=== PATIENT | male | born 1935 | race Two or more races ===

== ENCOUNTER 2019-12-05 13:40 | Inpatient (IN) | payer MEDICARE, OTHER ==
[~2019-12-05] VITALS: Ht 165.1 cm; Wt 77.6 kg
[2019-12-05 22:00] VITALS: BP 126/72
[2019-12-05] MEDS ORDERED: HYDROCODONE BIT/HOMATROPINE 5 ML UDC GT PRN (22:00)
[2019-12-05] MEDS ORDERED: ONDANSETRON HCL 4 MG/5 ML SOLUTION GT PRN (22:00)
[2019-12-05] MEDS ORDERED: METOCLOPRAMIDE HCL 10 MG TABLET PO PRN (22:00)
[2019-12-05] MEDS ORDERED: ACETAMINOPHEN 325 MG TABLET PO PRN (22:00)
--- NOTE | 2019-12-05 22:30 | NUR ---
Patient 84 years old male,admitted from [facility] under the care of Dr. Miguel Mak.Patient responsive to touch,non communicative ,open eyes.Tracheostomy located @ midline on mechanical ventilator with prescribed settings,no respiratory distress noted. GT patent and intact.Condom catheter in placed connected to urinary bag. Patient with history of AFIB,CHF,COPD,BPH, Renal transplant, Hypothyroidism,DM ,Hypertension.Notified of the admission and medications order ,to continue medications from acute hospital. Responsible green party notified of admission Trevon (son)Head to toe assessment completed. Edema on the right arm +3,Left arm +2. Right wrist and Left forearm with open blister,Left buttocks area unstageable wound. Scrotum MASD,Bilateral inner thigh redness. No BP on left arm d/t shunt. MRSA swab done for screening. PM care rendered,call light within reach.All needs attended,will continue to monitor.
--- NOTE | 2019-12-06 00:45 | NUR ---
Vital signs during admission; BP 126/ 70,Temp 99.1 HR 90 ,)2 sats 98%
--- NOTE | 2019-12-06 01:02 | NUR ---
RT NOTE Pt received trach'd and placed on [facility] vent w charted settings. Pt is stable w no signs of respiratory distress. Vent is plugged into the red outlet w alarms set and audible. Bvm is at hob. Addendum: 12/06/19 at 0243 by MIGUEL CAREY RT Amended: Links added.
[2019-12-06] MEDS ORDERED: ALBUTEROL FS 2.5 MG/0.5 ML VIAL.NEB NEB SCH (01:30)
[2019-12-06 02:05] VITALS: BP 130/70
[2019-12-06] MEDS ORDERED: INSULIN ASPART/LISPRO 100 UNIT/ML CARTRIDGE SQ SCH (05:00)
[2019-12-06] MEDS ORDERED: BLOOD SUGAR DIAGNOSTIC 1 EACH STRIP IN SCH ×2 (05:00→10:00)
[2019-12-06] MEDS ORDERED: LEVOTHYROXINE SODIUM 75 MCG TABLET ONE (05:21)
[2019-12-06] MEDS ORDERED: FUROSEMIDE 20 MG TABLET ONE (05:22)
[2019-12-06 07:32] VITALS: BP 119/68
[2019-12-06] MEDS ORDERED: FUROSEMIDE 20 MG TABLET GT ONE (09:00)
[2019-12-06] MEDS ORDERED: ALBUTEROL HALF STRENGTH 1.25 MG/3 ML VIAL.NEB NEB ONE (09:00)
[2019-12-06] MEDS ORDERED: PANTOPRAZOLE 40 MG/PACK PACK GT ONE (09:00)
[2019-12-06] MEDS ORDERED: LEVETIRACETAM SOL (5 ML) 100 MG/ML UDC PO ONE (09:00)
[2019-12-06] MEDS ORDERED: LEVOTHYROXINE SODIUM 50 MCG TABLET GT ONE ×2 (09:00→15:00)
[2019-12-06] MEDS ORDERED: APIXABAN 5 MG TABLET GT ONE (09:00)
--- NOTE | 2019-12-06 09:00 | NUR ---
Family Contact: DELMI called the pt.'s son, Trevon Albrecht [phone] to schedule time to complete intake paperwork for today. However, the call went to voicemail and SW left call back number and details. DELMI will follow up.
--- NOTE | 2019-12-06 09:00 | NUR ---
IDT DATE CHANGE NOTICE: DELMI left the pt.'s Son, Trevon Albrecht [phone] a voicemail explaining the process and purpose of the Interdisciplinary Plan of Care Conference and informing him that the IDT will be held today between 12:30-1:30 pm and left DELMI call back number.
[2019-12-06] MEDS ORDERED: ACET650S26 GT (09:45)
[2019-12-06] MEDS ORDERED: FURO-145 GT (09:45)
[2019-12-06] MEDS ORDERED: ALBU18HF2 IH (09:45)
[2019-12-06] MEDS ORDERED: SIRO1SOL GT (09:45)
[2019-12-06] MEDS ORDERED: TAMS-12 GT (09:45)
[2019-12-06] MEDS ORDERED: INSU100I4 SQ (09:45)
[2019-12-06] MEDS ORDERED: LATA2.5D7 EACHEYE (09:45)
[2019-12-06] MEDS ORDERED: DIGO125T GT (09:45)
[2019-12-06] MEDS ORDERED: LANS30CA56 GT (09:45)
[2019-12-06] MEDS ORDERED: IPRA3AMP23 IH (09:45)
[2019-12-06] MEDS ORDERED: LEVO50TA8 GT (09:45)
[2019-12-06] MEDS ORDERED: BALS60OI TP (09:45)
[2019-12-06] MEDS ORDERED: ONDA4TAB5 GT (09:45)
[2019-12-06] MEDS ORDERED: METO5SOL2 GT (09:45)
[2019-12-06] MEDS ORDERED: LEVE250T2 GT (09:45)
[2019-12-06] MEDS ORDERED: BLOO-668 IN (09:45)
[2019-12-06] MEDS ORDERED: HYDR-4384 GT (09:45)
[2019-12-06] MEDS ORDERED: APIX2.5T GT (09:45)
[2019-12-06] MEDS ORDERED: DEXT50DI8 IV (09:46)
[2019-12-06] MEDS: SIROLIMUS 1 MG GT SCH (09:52)
[2019-12-06] MEDS ORDERED: DEXTROSE 50%-WATER 50 ML DISP.SYRIN IV PRN ×2 (10:00→12:30)
[2019-12-06] MEDS ORDERED: DEXTROSE 50%-WATER 50 ML DISP.SYRIN IVP PRN (10:00)
[2019-12-06] MEDS ORDERED: INSULIN ASPART/LISPRO 100 UNIT/ML CARTRIDGE SQ PRN (10:00)
[2019-12-06] MEDS ORDERED: HYDROGEN PEROXIDE 480 ML BOTTLE TP PRN ×2 (10:00→20:30)
--- NOTE | 2019-12-06 10:00 | NUR ---
Seen by Dr Hood. Asked him if he wanted to order any labs for baseline. He said pt's latest labs from [facility] were done on 12/03/19 so there is no need to order labs at this time.
--- NOTE | 2019-12-06 11:21 | NUR ---
INTAKE PAPERWORK: DELMI explained and went over the Intake paperwork with the patients Son Trevon Albrecht [phone] via phone conference on 12/06/2019 at 11 am consisting of : (Patient Right's Acknowledgement, Documentation of Preferred Intensity of Care, Conditions of Admission, [facility] Agreement, and Voluntary Prior Express Consent form, and An Important Message from Medicare). Trevon Albrecht expressed that the intensity of care provided to the pt. should include Maximum Treatment and No CPR. DELMI provided patient's family with a copy of the Bill of Rights, patient information guide and [facility] resident and family guidelines. Energy Projects Lead educated Trevon Albrecht on Advanced Health Care Directive and Conservatorship and provided informational packets for him. The patients family has no plans of filing for conservatorship at the moment and the pt. cannot complete Advanced Health Care Directive as they are non-communicative. DELMI informed Trevon that the pt.'s admission paperwork, informational packets and Bill of rights will be left in a sealed envelope in patient's chart for Trevon to review and sign this weekend at his earliest convenience. Trevon expressed understanding and was agreeable to plan. SA furnace process supervisor informed.
[2019-12-06] MEDS ORDERED: LEVETIRACETAM SOL (5 ML) 100 MG/ML UDC GT SCH ×3 (11:59→21:00)
[2019-12-06 12:00] VITALS: BP 116/63
[2019-12-06] MEDS ORDERED: METOCLOPRAMIDE HCL 10 MG TABLET GT PRN (12:00)
[2019-12-06] MEDS ORDERED: Z GUARD REMEDY 4 OZ OINT TP PRN ×2 (12:00→13:30)
[2019-12-06] MEDS: INSULIN ASPART/LISPRO 100 UNIT/ML CARTRIDGE SQ PRN ×2 (12:43→21:50)
[2019-12-06] MEDS: BLOOD SUGAR DIAGNOSTIC 1 EACH STRIP IN SCH ×2 (12:43→21:47)
[2019-12-06] MEDS ORDERED: TUBERCULIN,PURIF.PROT.DERIV. 5 TU/0.1 ML VIAL ID SCH (13:00)
[2019-12-06] MEDS: DIGOXIN ELIX UDC 0.25 MG/5 ML UDC GT SCH (13:00)
--- NOTE | 2019-12-06 13:00 | NUR ---
IDT meeting held today. Pt on both Eliquis and SCD for DVT prophylaxis. Dr Alicea ordered to DC SCD. He also ordered Digoxin level.
[2019-12-06] MEDS: ALBUTEROL HALF STRENGTH 1.25 MG/3 ML VIAL.NEB NEB SCH ×2 (13:30→19:30)
--- NOTE | 2019-12-06 13:51 | NUR ---
PT RCVD TRACH'D ON MECHANICAL VENT WITH CHARTED SETTINGS. SX DONE. PT TRACH IS PATENT AND SECURE. VENT ALARMS ARE ON, SET, AND AUDIBLE. VENT PLUGGED INTO RED OUTLET. AMBU BAG AT BEDSIDE. NO SOB NOTED. Addendum: 12/06/19 at 1352 by MARI GARCIA RT Amended: Links added.
--- NOTE | 2019-12-06 13:55 | NUR ---
SW Initial patient Assessment: The pt. is an 84 year old [place]i male in [facility] SA unit with a DX of : Acute Hypoxeic Respiratory Failure, Tracheostomy, Ventilator Dependent ; GTube; AFIB,CHF,COPD,BPH, Renal transplant, Hypothyroidism,DM ,Hypertension per EMR. Upon SS consultation, the pt. presents laying in bed, lethargic and is not easily rousable. The pt. is unable to make eye contact upon SW verbal cues. SW unable to accurately assess for orientation, mood, speech, thought process and content, cognition or insight/judgement as the pt is non-communicative. The pt. is fully dependent on all activities of daily living and requires: ventilator and trach care; g-tube feeding, medication management and caregiving for all activities of daily living as he is fully dependent. The pt. will be discharged to a lower level of care when medically appropriate. The patient's responsible constitution party is, Trevon Albrecht [phone], who is the pt.'s youngest son. Per Trevon, family is planning for pt. to remain in this facility long-term. SW will be available to assist family and patient with psychosocial needs.
--- NOTE | 2019-12-06 14:11 | NUR ---
INTERDISCIPLINARY PLAN OF CARE CONFERENCE took place today. The patients responsible libertarian/ Trevon Albrecht [phone] was not able to attend or participate via phone conference. Charge nurse discussed the patients is stable. Dr. Alicea and Interdisciplinary team discussed the plan of care in detail. Current orders as well as treatments and medications were reviewed. Please see other disciplines IDT notes for further details.
--- NOTE | 2019-12-06 16:12 | NUR ---
Seen by PT and OT today. Received PROM orders for BLE and BUE.
[2019-12-06] MEDS: APIXABAN 5 MG TABLET GT SCH (17:24)
[2019-12-06 19:02] VITALS: BP 117/62
[2019-12-06 20:10] VITALS: BP 104/61
[2019-12-06] MEDS ORDERED: ONDANSETRON 4 MG TAB.RAPDIS GT SCH (21:00)
[2019-12-06] MEDS ORDERED: HYDROGEN PEROXIDE 480 ML BOTTLE TP SCH (21:00)
[2019-12-06] MEDS ORDERED: LEVETIRACETAM SOL (5 ML) 100 MG/ML UDC PO SCH (21:00)
[2019-12-06] MEDS: Z GUARD REMEDY 2 OZ OINT TP SCH (21:47)
[2019-12-06] MEDS: LEVETIRACETAM (250 MG) 250 MG TABLET PO SCH (21:47)
[2019-12-06] MEDS: Z GUARD REMEDY 4 OZ OINT TP SCH ×5 (21:47)
[2019-12-06] MEDS: VITS A AND D/WHITE PET/LANOLIN 5 GM PACKET TP SCH (21:48)
[2019-12-06] MEDS: LATANOPROST EYE DROP 0.005% 2.5 ML BOTTLE EACHEYE SCH (21:48)
[2019-12-06] MEDS: TAMSULOSIN 0.4 MG CAP.SR.24H GT SCH (21:49)
[2019-12-06] MEDS: HYDROGEN PEROXIDE 480 ML BOTTLE TP SCH (22:00)
[2019-12-07 00:15] VITALS: BP 129/59
[2019-12-07] MEDS: ALBUTEROL HALF STRENGTH 1.25 MG/3 ML VIAL.NEB NEB SCH ×4 (00:31→19:36)
[2019-12-07 04:10] VITALS: BP 122/66
[2019-12-07] MEDS: LEVOTHYROXINE SODIUM 50 MCG TABLET GT SCH (05:49)
[2019-12-07] MEDS: FUROSEMIDE 20 MG TABLET GT SCH (05:49)
[2019-12-07] MEDS: PREVACID (NF) 30 MG TAB GT SCH (05:49)
[2019-12-07] MEDS: BLOOD SUGAR DIAGNOSTIC 1 EACH STRIP IN SCH ×3 (05:49→21:48)
[2019-12-07] MEDS: INSULIN ASPART/LISPRO 100 UNIT/ML CARTRIDGE SQ PRN ×3 (05:51→21:48)
[2019-12-07 07:27] VITALS: BP 125/47
[2019-12-07] MEDS ORDERED: ONDANSETRON 4 MG TAB.RAPDIS GT PRN (08:30)
--- NOTE | 2019-12-07 08:52 | NUR ---
WOUND CARE CONSULT: PT SEEN FOR SKIN ASSESSMENT AND NOTED TO HAVE SCARRING TO SACRUM WHICH EXTENDS TO BUTTOCKS, RASH TO PERINEAL, LOWER BUTTOCKS AND INNER THIGH AREAS AND HEALING AREA WITH SCARRING AND BROWNISH DISCOLORATION TO RT WRIST, PRESENT ON ADMISSION. NO DRAINAGE NOTED AT RT WRIST. RECOMMEND SURGICAL CONSULT. DR GONZALES NOTIFIED OF CONSULT REQUEST. RECOMMENDATIONS MADE FOR SKIN PROTECTION OF SACRAL/BUTTOCKS/PERINEAL AREAS AND RASH CARE TO INCLUDE LOTRIMIN CREAM. DISCUSSED WITH NURSING STAFF. PT IS INCONTINENT OF STOOL. CONDOM CATH IN USE. WILL SEE PRN. IN AGREEMENT WITH PLAN OF CARE.
[2019-12-07] MEDS: SIROLIMUS 1 MG GT SCH (09:00)
[2019-12-07] MEDS: APIXABAN 5 MG TABLET GT SCH ×2 (09:00→17:25)
[2019-12-07] MEDS: Z GUARD REMEDY 4 OZ OINT TP SCH ×10 (09:00→21:37)
[2019-12-07] MEDS: LEVETIRACETAM (250 MG) 250 MG TABLET PO SCH (09:00)
[2019-12-07] MEDS: VITS A AND D/WHITE PET/LANOLIN 5 GM PACKET TP SCH ×2 (09:00→21:37)
[2019-12-07] MEDS: Z GUARD REMEDY 2 OZ OINT TP SCH ×2 (09:00→21:37)
[2019-12-07] MEDS: HYDROGEN PEROXIDE 480 ML BOTTLE TP SCH ×2 (09:31→20:38)
--- NOTE | 2019-12-07 09:48 | NUR ---
Reported Digoxin level result 0.[address] Alicea, no new order given. Resident currently on Digoxin 0.125 mg. via GT daily.
--- NOTE | 2019-12-07 11:30 | NUR ---
Resident seen by wound nurse with new treatment order given. She also referrered R wrist/R hand dried blister to JF Huerta. After assessing the area, JF huerta said to leave open to air and if it bleeds to apply Xeroform. Endorsed. Resident's son at bedside, he said that R wrist/R hand blister was due to IV infiltration.
[2019-12-07] MEDS: GLUCERNA 1.2 1,000 ML BOTTLE GT PRN (13:23)
[2019-12-07] MEDS: DIGOXIN ELIX UDC 0.25 MG/5 ML UDC GT SCH (13:25)
[2019-12-07] MEDS ORDERED: GUAIFENESIN/D-METHORPHAN HB 5 ML UDC GT PRN (14:00)
--- NOTE | 2019-12-07 14:00 | NUR ---
Informed Dr. Hood that [facility] pharmacy faxed controlled substance authorization for Hycodan that needed MD's signature. Dr. Hood discontinue Hycodan and changed cough medication order to Graciela DAVIES. Family informed.
[2019-12-07] MEDS ORDERED: SIROLIMUS 1 MG GT SCH (15:00)
--- NOTE | 2019-12-07 19:36 | NUR ---
RT NOTE PATIENT RECEIEVED IN STABLE CONDITION. NO SIGNS OF RESPIRATORY DISTRESS NOTED. PATIENT IS TOLERATING CURRENT ORDERED VENT SETTINGS. TRACH IS PATENT AND SECURE. MECHANICAL VENT IS PLUGED INTO RED OUTLET. ALARMS ARE SET AND AUDIBLE. EMERGENCY EQUIPMENT AT BEDSIDE. WILL CONTINUE TO MONITOR PATIENT. Addendum: 12/07/19 at 2049 by AGUILAR BOURNE RT Amended: Links added.
[2019-12-07 20:12] VITALS: BP 121/58
[2019-12-07] MEDS: KEPPRA 500 MG GT SCH (21:36)
[2019-12-07] MEDS: LATANOPROST EYE DROP 0.005% 2.5 ML BOTTLE EACHEYE SCH (21:37)
[2019-12-07] MEDS: TAMSULOSIN 0.4 MG CAP.SR.24H GT SCH (21:37)
[2019-12-07] MEDS: CLOTRIMAZOLE 1% 15 GM TUBE TP SCH (21:37)
[2019-12-08] MEDS: ALBUTEROL HALF STRENGTH 1.25 MG/3 ML VIAL.NEB NEB SCH ×4 (01:30→19:33)
[2019-12-08 04:30] VITALS: BP 112/69
[2019-12-08 04:37] VITALS: BP 112/69
[2019-12-08] MEDS: GLUCERNA 1.2 1,000 ML BOTTLE GT PRN (05:17)
[2019-12-08] MEDS: BLOOD SUGAR DIAGNOSTIC 1 EACH STRIP IN SCH ×3 (05:17→21:24)
[2019-12-08] MEDS: FUROSEMIDE 20 MG TABLET GT SCH (05:17)
[2019-12-08] MEDS: LEVOTHYROXINE SODIUM 50 MCG TABLET GT SCH (05:17)
[2019-12-08] MEDS: PREVACID (NF) 30 MG TAB GT SCH (05:17)
[2019-12-08] MEDS: INSULIN ASPART/LISPRO 100 UNIT/ML CARTRIDGE SQ PRN ×3 (05:19→21:25)
[2019-12-08 07:47] VITALS: BP 110/58
[2019-12-08] MEDS: HYDROGEN PEROXIDE 480 ML BOTTLE TP SCH ×2 (08:27→21:00)
[2019-12-08] MEDS: Z GUARD REMEDY 2 OZ OINT TP SCH ×2 (08:54→20:59)
[2019-12-08] MEDS: SIROLIMUS 1 MG GT SCH (08:54)
[2019-12-08] MEDS: CLOTRIMAZOLE 1% 15 GM TUBE TP SCH ×2 (08:54→20:59)
[2019-12-08] MEDS: Z GUARD REMEDY 4 OZ OINT TP SCH ×10 (08:54→21:00)
[2019-12-08] MEDS: KEPPRA 500 MG GT SCH ×2 (08:54→20:59)
[2019-12-08] MEDS: APIXABAN 5 MG TABLET GT SCH ×2 (08:55→17:21)
[2019-12-08] MEDS: VITS A AND D/WHITE PET/LANOLIN 5 GM PACKET TP SCH ×2 (08:55→21:00)
--- NOTE | 2019-12-08 09:38 | NUR ---
PT RCVD TRACH'D ON MECHANICAL VENT WITH CHARTED SETTINGS. PT DEONDRE TX WELL. SX DONE. PT TRACH IS PATENT AND SECURE. VENT ALARMS ARE ON, SET, AND AUDIBLE. VENT PLUGGED INTO RED OUTLET. AMBU BAG AT BEDSIDE. NO SOB NOTED. Addendum: 12/08/19 at 0939 by MARI GARCIA RT Amended: Links added.
[2019-12-08] MEDS: DIGOXIN ELIX UDC 0.25 MG/5 ML UDC GT SCH (12:45)
[2019-12-08 20:30] VITALS: BP 117/68
[2019-12-08] MEDS: LATANOPROST EYE DROP 0.005% 2.5 ML BOTTLE EACHEYE SCH (21:00)
[2019-12-08] MEDS: TAMSULOSIN 0.4 MG CAP.SR.24H GT SCH (21:00)
[2019-12-09] MEDS: ALBUTEROL HALF STRENGTH 1.25 MG/3 ML VIAL.NEB NEB SCH ×4 (01:21→19:35)
[2019-12-09] MEDS: BLOOD SUGAR DIAGNOSTIC 1 EACH STRIP IN SCH ×3 (05:40→20:58)
[2019-12-09] MEDS: FUROSEMIDE 20 MG TABLET GT SCH (06:06)
[2019-12-09] MEDS: PREVACID (NF) 30 MG TAB GT SCH (06:06)
[2019-12-09] MEDS: LEVOTHYROXINE SODIUM 50 MCG TABLET GT SCH (06:06)
[2019-12-09] MEDS: INSULIN ASPART/LISPRO 100 UNIT/ML CARTRIDGE SQ PRN ×3 (06:07→21:00)
[2019-12-09 07:45] VITALS: BP 133/60
[2019-12-09] MEDS: HYDROGEN PEROXIDE 480 ML BOTTLE TP SCH ×2 (08:34→21:04)
--- NOTE | 2019-12-09 08:39 | NUR ---
PT RCVD TRACH'D ON MECHANICAL VENT WITH CHARTED SETTINGS. PT DEONDRE TX WELL. SX DONE. PT TRACH IS PATENT AND SECURE. VENT ALARMS ARE ON, SET, AND AUDIBLE. VENT PLUGGED INTO RED OUTLET. AMBU BAG AT BEDSIDE. NO SOB NOTED. Addendum: 12/09/19 at 0840 by MARI GARCIA RT Amended: Links added.
[2019-12-09] MEDS: CLOTRIMAZOLE 1% 15 GM TUBE TP SCH ×2 (09:00→20:58)
[2019-12-09] MEDS: SIROLIMUS 1 MG GT SCH (09:00)
[2019-12-09] MEDS: KEPPRA 500 MG GT SCH ×2 (09:00→20:58)
[2019-12-09] MEDS: Z GUARD REMEDY 2 OZ OINT TP SCH ×2 (09:00→20:58)
[2019-12-09] MEDS: VITS A AND D/WHITE PET/LANOLIN 5 GM PACKET TP SCH ×2 (09:00→20:59)
[2019-12-09] MEDS: Z GUARD REMEDY 4 OZ OINT TP SCH ×10 (09:00→20:59)
[2019-12-09] MEDS: APIXABAN 5 MG TABLET GT SCH ×2 (10:00→17:05)
[2019-12-09] MEDS: DIGOXIN ELIX UDC 0.25 MG/5 ML UDC GT SCH (12:06)
[2019-12-09] MEDS: GLUCERNA 1.2 1,000 ML BOTTLE GT PRN (14:43)
--- NOTE | 2019-12-09 16:20 | NUR ---
RT NOTE PRN TRACH TUBE CHANGE DONE DUE TO MALFUNCTIONING TRACH TUBE CUFF. PT SUCTIONED PRE/POST PROCEDURE. MINIMAL BLEEDING NOTED. PT TRACH IS PATENT AND SECURE. NO SOB NOTED. CHARGE NURSE JIL NOTIFIED AND AWARE.
[2019-12-09 19:40] VITALS: BP 110/76
[2019-12-09] MEDS: TAMSULOSIN 0.4 MG CAP.SR.24H GT SCH (21:06)
[2019-12-09] MEDS: LATANOPROST EYE DROP 0.005% 2.5 ML BOTTLE EACHEYE SCH (21:06)
[2019-12-10] MEDS: ALBUTEROL HALF STRENGTH 1.25 MG/3 ML VIAL.NEB NEB SCH ×4 (00:56→19:30)
[2019-12-10] MEDS: FUROSEMIDE 20 MG TABLET GT SCH (05:06)
[2019-12-10] MEDS: BLOOD SUGAR DIAGNOSTIC 1 EACH STRIP IN SCH ×3 (05:06→21:50)
[2019-12-10] MEDS: LEVOTHYROXINE SODIUM 50 MCG TABLET GT SCH (05:06)
[2019-12-10] MEDS: PREVACID (NF) 30 MG TAB GT SCH (05:06)
[2019-12-10] MEDS: INSULIN ASPART/LISPRO 100 UNIT/ML CARTRIDGE SQ PRN ×3 (05:07→21:52)
[2019-12-10 07:29] VITALS: BP 110/52
--- NOTE | 2019-12-10 08:49 | NUR ---
RT NOTE PT RCVD TRACH'D ON MECHANICAL VENT WITH CHARTED SETTINGS. SX DONE. PT TRACH IS PATENT AND SECURE. VENT ALARMS ARE ON, SET, AND AUDIBLE. VENT PLUGGED INTO RED OUTLET. AMBU BAG AT BEDSIDE. NO SOB NOTED AT THIS TIME. Addendum: 12/10/19 at 0850 by DEVANG BENNETT RT Amended: Links added.
[2019-12-10] MEDS: KEPPRA 500 MG GT SCH ×2 (09:00→20:46)
[2019-12-10] MEDS: SIROLIMUS 1 MG GT SCH (09:00)
[2019-12-10] MEDS: APIXABAN 5 MG TABLET GT SCH ×2 (09:00→16:35)
[2019-12-10] MEDS: VITS A AND D/WHITE PET/LANOLIN 5 GM PACKET TP SCH ×2 (09:00→20:47)
[2019-12-10] MEDS: Z GUARD REMEDY 2 OZ OINT TP SCH ×2 (09:00→20:46)
[2019-12-10] MEDS: Z GUARD REMEDY 4 OZ OINT TP SCH ×10 (09:00→20:47)
[2019-12-10] MEDS: HYDROGEN PEROXIDE 480 ML BOTTLE TP SCH ×2 (09:00→21:00)
[2019-12-10] MEDS: CLOTRIMAZOLE 1% 15 GM TUBE TP SCH ×2 (09:00→20:46)
[2019-12-10] MEDS: GLUCERNA 1.2 1,000 ML BOTTLE GT PRN (12:40)
--- NOTE | 2019-12-10 13:00 | NUR ---
Seen by EMERGENCY ROOM PHYSICIAN ASSISTANT Nadine Taylor. Relayed CXR result to her. No new order.
[2019-12-10] MEDS: DIGOXIN ELIX UDC 0.25 MG/5 ML UDC GT SCH (13:04)
--- NOTE | 2019-12-10 13:26 | NUR ---
The patient's son, Trevon Albrecht [phone] signed the intake paperwork: (Patient Right's Acknowledgement, Documentation of Preferred Intensity of Care, Conditions of Admission, [facility] Agreement, and Voluntary Prior Express Consent form, and An Important Message from Medicare) on 12/07/2019 12:15pm. SW filed the intake paperwork in the patient's chart.
[2019-12-10 19:54] VITALS: BP 120/65
[2019-12-10] MEDS: TAMSULOSIN 0.4 MG CAP.SR.24H GT SCH (21:51)
[2019-12-10] MEDS: LATANOPROST EYE DROP 0.005% 2.5 ML BOTTLE EACHEYE SCH (21:51)
[2019-12-11] MEDS: ALBUTEROL HALF STRENGTH 1.25 MG/3 ML VIAL.NEB NEB SCH ×4 (02:27→19:35)
[2019-12-11] MEDS: BLOOD SUGAR DIAGNOSTIC 1 EACH STRIP IN SCH ×3 (05:54→21:13)
[2019-12-11] MEDS: INSULIN ASPART/LISPRO 100 UNIT/ML CARTRIDGE SQ PRN ×3 (05:55→21:14)
[2019-12-11] MEDS: FUROSEMIDE 20 MG TABLET GT SCH (05:55)
[2019-12-11] MEDS: PREVACID (NF) 30 MG TAB GT SCH (05:55)
[2019-12-11] MEDS: LEVOTHYROXINE SODIUM 50 MCG TABLET GT SCH (05:55)
[2019-12-11 06:22] LABS: BASOPHILS % (AUTO) 0.5 % (0.0-2.0); EOSINOPHILS % (AUTO) 4.5 % (0.0-6.0); HEMATOCRIT 30 % (39-51); HEMOGLOBIN 9.6 g/dL (13.5-17.5); LYMPHOCYTES # (AUTO) 0.7 /CMM (0.8-4.8); LYMPHOCYTES % (AUTO) 14.9 % (20.0-44.0); MEAN CORPUSCULAR HGB CONC 32 g/dl (31.0-36.0); MEAN CORPUSCULAR VOLUME 99 fL (80-96); MONOCYTES # (AUTO) 0.7 /CMM (0.1-1.30); MONOCYTES % (AUTO) 13.5 % (2.0-12.0); NEUTROPHILS # (AUTO) 3.4 /CMM (1.8-8.9); NEUTROPHILS % (AUTO) 66.6 % (43.0-81.0); PLATELET COUNT (AUTO) 188 /CMM (150-450)
[2019-12-11 06:43] LABS: CALCIUM, SERUM 9.3 mg/dL (8.5-10.1); MAGNESIUM 2.1 mg/dL (1.8-2.4); PHOSPHORUS 3.7 mg/dL (2.5-4.9); POTASSIUM 3.7 mmol/L (3.5-5.1)
[2019-12-11 08:00] VITALS: BP 98/57
--- NOTE | 2019-12-11 08:58 | NUR ---
Family Invite to December Family Support Group and 12/21/19 IDT :DELMI called the pt.'s son, Trevon Albrecht [phone] to invite him to the Family Support Group 12/19/2019 11 am and to the next IDT 12/21/2019 12:30PM and ask for the pt.'s social security number that is missing on the patient's facesheet. The call went to voicemail and DELMI left message with above stated information and DELMI's call back number.
[2019-12-11] MEDS: Z GUARD REMEDY 2 OZ OINT TP SCH ×2 (09:00→20:05)
[2019-12-11] MEDS: HYDROGEN PEROXIDE 480 ML BOTTLE TP SCH ×2 (09:00→21:00)
[2019-12-11] MEDS: APIXABAN 5 MG TABLET GT SCH ×2 (09:00→17:55)
[2019-12-11] MEDS: Z GUARD REMEDY 4 OZ OINT TP SCH ×10 (09:00→20:05)
[2019-12-11] MEDS: SIROLIMUS 1 MG GT SCH (09:00)
[2019-12-11] MEDS: VITS A AND D/WHITE PET/LANOLIN 5 GM PACKET TP SCH ×2 (09:00→20:05)
[2019-12-11] MEDS: CLOTRIMAZOLE 1% 15 GM TUBE TP SCH ×2 (09:00→20:05)
[2019-12-11] MEDS: KEPPRA 500 MG GT SCH ×2 (09:00→20:05)
[2019-12-11] MEDS: GLUCERNA 1.2 1,000 ML BOTTLE GT PRN (10:38)
[2019-12-11] MEDS: DIGOXIN ELIX UDC 0.25 MG/5 ML UDC GT SCH (13:15)
--- NOTE | 2019-12-11 15:20 | NUR ---
SW received a visit from the patient's son, Trevon asking about the family support group and IDT. DELMI explained the purpose of the IDT plan of care conference and the Family Support Group and asked if there are any topics he would like me to discuss. Trevon expressed understanding and stated he will not be able to attend the family support group this month but would like to participate in IDT meeting via phone conference. Noted.
--- NOTE | 2019-12-11 15:27 | NUR ---
Pt's son requested to DC condom catheter. He said that when pt was still able to speak, he was refusing it. Pt does not have any open wounds in the sacrococcyx area and urine output not being strictly monitored. Pt's family said the condom catheter was placed in the hospital to monitor the urine output. Informed Dr Hood of family's request. He ordered to DC condom catheter.
[2019-12-11 19:52] VITALS: BP 126/65
[2019-12-11] MEDS: LATANOPROST EYE DROP 0.005% 2.5 ML BOTTLE EACHEYE SCH (21:13)
[2019-12-11] MEDS: TAMSULOSIN 0.4 MG CAP.SR.24H GT SCH (21:13)
[2019-12-12] MEDS: ALBUTEROL HALF STRENGTH 1.25 MG/3 ML VIAL.NEB NEB SCH ×4 (01:16→20:08)
[2019-12-12] MEDS: BLOOD SUGAR DIAGNOSTIC 1 EACH STRIP IN SCH ×3 (05:47→21:25)
[2019-12-12] MEDS: PREVACID (NF) 30 MG TAB GT SCH (05:47)
[2019-12-12] MEDS: FUROSEMIDE 20 MG TABLET GT SCH (05:47)
[2019-12-12] MEDS: LEVOTHYROXINE SODIUM 50 MCG TABLET GT SCH (05:47)
[2019-12-12] MEDS: INSULIN ASPART/LISPRO 100 UNIT/ML CARTRIDGE SQ PRN ×3 (05:48→21:26)
[2019-12-12 07:43] VITALS: BP 110/77
[2019-12-12] MEDS: HYDROGEN PEROXIDE 480 ML BOTTLE TP SCH ×2 (09:00→20:50)
[2019-12-12] MEDS: KEPPRA 500 MG GT SCH ×2 (09:53→21:17)
[2019-12-12] MEDS: APIXABAN 5 MG TABLET GT SCH ×2 (09:53→17:53)
[2019-12-12] MEDS: VITS A AND D/WHITE PET/LANOLIN 5 GM PACKET TP SCH ×2 (09:54→21:22)
[2019-12-12] MEDS: CLOTRIMAZOLE 1% 15 GM TUBE TP SCH ×2 (09:54→21:17)
[2019-12-12] MEDS: SIROLIMUS 1 MG GT SCH (09:54)
[2019-12-12] MEDS: Z GUARD REMEDY 4 OZ OINT TP SCH ×10 (09:54→21:22)
[2019-12-12] MEDS: Z GUARD REMEDY 2 OZ OINT TP SCH ×2 (09:54→21:17)
[2019-12-12] MEDS: DIGOXIN ELIX UDC 0.25 MG/5 ML UDC GT SCH (12:24)
[2019-12-12] MEDS: GLUCERNA 1.2 1,000 ML BOTTLE GT PRN ×2 (12:29→23:45)
[2019-12-12 19:42] VITALS: BP 114/56
[2019-12-12] MEDS: LATANOPROST EYE DROP 0.005% 2.5 ML BOTTLE EACHEYE SCH (21:22)
[2019-12-12] MEDS: TAMSULOSIN 0.4 MG CAP.SR.24H GT SCH (21:22)
--- NOTE | 2019-12-12 21:50 | NUR ---
RT NOTE Pt rec'd trached on the [facility] vent on AC mode. Pt shows no signs of resp distress or sob. Trach is patent and secured. Pt sx'd for thick mod amt of pale yellow secretions. Alarms are set and audible. Vent plugged into red outlet. Ambu bag bedside. Will continue to monitor. Addendum: 12/12/19 at 2153 by RENATE CHAVEZ RT Amended: Links added.
[2019-12-13] MEDS: ALBUTEROL HALF STRENGTH 1.25 MG/3 ML VIAL.NEB NEB SCH ×4 (01:38→19:29)
[2019-12-13] MEDS: PREVACID (NF) 30 MG TAB GT SCH (05:38)
[2019-12-13] MEDS: FUROSEMIDE 20 MG TABLET GT SCH (05:38)
[2019-12-13] MEDS: BLOOD SUGAR DIAGNOSTIC 1 EACH STRIP IN SCH ×3 (05:38→20:49)
[2019-12-13] MEDS: LEVOTHYROXINE SODIUM 50 MCG TABLET GT SCH (05:38)
[2019-12-13] MEDS: INSULIN ASPART/LISPRO 100 UNIT/ML CARTRIDGE SQ PRN ×3 (05:40→22:10)
[2019-12-13 07:21] VITALS: BP 121/63
[2019-12-13] MEDS: KEPPRA 500 MG GT SCH ×2 (08:26→20:48)
[2019-12-13] MEDS: SIROLIMUS 1 MG GT SCH (08:27)
[2019-12-13] MEDS: APIXABAN 5 MG TABLET GT SCH ×2 (08:27→16:35)
[2019-12-13 09:00] VITALS: BP 131/74
[2019-12-13] MEDS: Z GUARD REMEDY 2 OZ OINT TP SCH ×2 (10:00→20:50)
[2019-12-13] MEDS: VITS A AND D/WHITE PET/LANOLIN 5 GM PACKET TP SCH ×2 (10:00→20:50)
[2019-12-13] MEDS: Z GUARD REMEDY 4 OZ OINT TP SCH ×10 (10:00→20:50)
[2019-12-13] MEDS: CLOTRIMAZOLE 1% 15 GM TUBE TP SCH ×2 (10:00→20:50)
--- NOTE | 2019-12-13 10:50 | NUR ---
Informed Dr Hodo that Lansoprazole is not covered by insurance and the covered alternative is Omeprazole. Dr Hood ordered to DC Lansoprazole and give Omeprazole capsule DR 20 mg via GT daily at 0600.
--- NOTE | 2019-12-13 10:55 | NUR ---
RT NOTE: LATE ENTRY- WHILE PATIENT WAS IN SHOWER VENT LOW BATTERY ALARM WENT OFF. PATIENT WAS TAKEN BACK TO ROOM AND VENT WAS CONNECTED TO RED OUTLET IMMEDIATELY PER CRN(JERAMY). @1040-PATIENT WAS ASSESSED IN ROOM WITH NO DISTRESS NOTED. PATIENT'S VENT WAS CHANGED. VENT PLUGGED INTO RED OUTLET. ALARMS SET AND AUDIBLE. NURSE(ADILIA) NOTIFIED.
[2019-12-13] MEDS: HYDROGEN PEROXIDE 480 ML BOTTLE TP SCH ×2 (11:08→21:40)
[2019-12-13 13:00] VITALS: BP 136/67
[2019-12-13] MEDS: DIGOXIN ELIX UDC 0.25 MG/5 ML UDC GT SCH (13:00)
--- NOTE | 2019-12-13 16:30 | NUR ---
RT NOTE: PATIENT RECEIVED WITH AGAPITOLEY #8 TRACH ON MECHANICAL VENT. VENT ALARMS VERIFIED AND AUDIBLE. VENT PLUGGED INTO RED OUTLET. NEW TRACH AND AMBU BAG AT [facility].
[2019-12-13 17:00] VITALS: BP 138/71
[2019-12-13 20:45] VITALS: BP 105/54
[2019-12-13] MEDS: GLUCERNA 1.2 1,000 ML BOTTLE GT PRN (21:13)
[2019-12-13] MEDS: LATANOPROST EYE DROP 0.005% 2.5 ML BOTTLE EACHEYE SCH (21:13)
[2019-12-13] MEDS: TAMSULOSIN 0.4 MG CAP.SR.24H GT SCH (21:13)
[2019-12-14] MEDS: ALBUTEROL HALF STRENGTH 1.25 MG/3 ML VIAL.NEB NEB SCH ×4 (02:12→19:11)
--- NOTE | 2019-12-14 03:10 | NUR ---
RT Pt trach remains on [facility] vent settings. trach secure and patent. no resp distress noted. Addendum: 12/14/19 at 0311 by LUZ GALLEGOS RT Amended: Links added.
[2019-12-14] MEDS: OMEPRAZOLE 20 MG CAPSULE.DR GT SCH (05:38)
[2019-12-14] MEDS: FUROSEMIDE 20 MG TABLET GT SCH (05:38)
[2019-12-14] MEDS: BLOOD SUGAR DIAGNOSTIC 1 EACH STRIP IN SCH ×3 (05:38→21:01)
[2019-12-14] MEDS: LEVOTHYROXINE SODIUM 50 MCG TABLET GT SCH (05:38)
[2019-12-14] MEDS: INSULIN ASPART/LISPRO 100 UNIT/ML CARTRIDGE SQ PRN ×3 (05:39→21:31)
[2019-12-14 07:27] VITALS: BP 127/57
[2019-12-14] MEDS: APIXABAN 5 MG TABLET GT SCH ×2 (08:25→16:01)
[2019-12-14] MEDS: KEPPRA 500 MG GT SCH ×2 (08:25→20:19)
[2019-12-14] MEDS: Z GUARD REMEDY 4 OZ OINT TP SCH ×10 (08:27→20:19)
[2019-12-14] MEDS: VITS A AND D/WHITE PET/LANOLIN 5 GM PACKET TP SCH ×2 (08:28→20:19)
[2019-12-14] MEDS: CLOTRIMAZOLE 1% 15 GM TUBE TP SCH ×2 (08:28→20:19)
[2019-12-14] MEDS: Z GUARD REMEDY 2 OZ OINT TP SCH ×2 (08:28→20:19)
[2019-12-14] MEDS: HYDROGEN PEROXIDE 480 ML BOTTLE TP SCH ×2 (08:29→21:00)
[2019-12-14] MEDS: SIROLIMUS 1 MG GT SCH (08:29)
[2019-12-14] MEDS ORDERED: SITAGLIPTIN PHOSPHATE 50 MG TABLET PO SCH (12:00)
[2019-12-14] MEDS: DIGOXIN ELIX UDC 0.25 MG/5 ML UDC GT SCH (12:24)
--- NOTE | 2019-12-14 14:56 | NUR ---
New medicine Corwin ordered non administer at 1200 today. drug not available. Order faxed by CN to [facility] and made aware of inhouse pharmacy as well. Spoke to Arlin.
[2019-12-14] MEDS: GLUCERNA 1.2 1,000 ML BOTTLE GT PRN (15:55)
[2019-12-14] MEDS: PROSOURCE / PROSTAT (PYXIS) 30 ML UDC GT SCH (16:01)
[2019-12-14 20:58] VITALS: BP 107/51
[2019-12-14] MEDS: LATANOPROST EYE DROP 0.005% 2.5 ML BOTTLE EACHEYE SCH (21:01)
[2019-12-14] MEDS: TAMSULOSIN 0.4 MG CAP.SR.24H GT SCH (21:01)
[2019-12-15] MEDS: ALBUTEROL HALF STRENGTH 1.25 MG/3 ML VIAL.NEB NEB SCH ×4 (00:55→20:28)
--- NOTE | 2019-12-15 04:11 | NUR ---
RT NOTE: RECEIVED TRACH PT ON ORDERED NOTED VENT SETTINGS. NO RESPIRATORY DISTRESS NOTED. TRACH CHECKED SECURE AND PATENT. SXD AND LAVAGED Q ROUND AND NEEDED. TXS GIVEN ORDERED WITH NO ADVERSE REACTIONS NOTED. TRACH CARE DONE. SPARE TRACH AND AMBU BAG @ BEDSIDE. VENT PLUGGED INTO RED OUTLET.
[2019-12-15] MEDS: OMEPRAZOLE 20 MG CAPSULE.DR GT SCH (05:15)
[2019-12-15] MEDS: BLOOD SUGAR DIAGNOSTIC 1 EACH STRIP IN SCH ×3 (05:15→21:01)
[2019-12-15] MEDS: FUROSEMIDE 20 MG TABLET GT SCH (05:15)
[2019-12-15] MEDS: GLUCERNA 1.2 1,000 ML BOTTLE GT PRN ×2 (05:15→12:54)
[2019-12-15] MEDS: LEVOTHYROXINE SODIUM 50 MCG TABLET GT SCH (05:15)
[2019-12-15] MEDS: INSULIN ASPART/LISPRO 100 UNIT/ML CARTRIDGE SQ PRN ×3 (05:16→21:05)
[2019-12-15] MEDS: PROSOURCE / PROSTAT (PYXIS) 30 ML UDC GT SCH ×3 (08:00→16:44)
[2019-12-15] MEDS: HYDROGEN PEROXIDE 480 ML BOTTLE TP SCH ×2 (09:00→20:28)
[2019-12-15] MEDS: CLOTRIMAZOLE 1% 15 GM TUBE TP SCH ×2 (09:00→20:22)
[2019-12-15] MEDS: Z GUARD REMEDY 2 OZ OINT TP SCH ×2 (09:00→20:22)
[2019-12-15] MEDS: VITS A AND D/WHITE PET/LANOLIN 5 GM PACKET TP SCH ×2 (09:00→20:23)
[2019-12-15] MEDS: Z GUARD REMEDY 4 OZ OINT TP SCH ×10 (09:00→20:23)
[2019-12-15] MEDS: APIXABAN 5 MG TABLET GT SCH ×2 (09:49→16:43)
[2019-12-15] MEDS: KEPPRA 500 MG GT SCH ×2 (09:49→20:22)
[2019-12-15] MEDS: SITAGLIPTIN PHOSPHATE 50 MG TABLET GT SCH (09:50)
[2019-12-15] MEDS: SIROLIMUS 1 MG GT SCH (09:56)
[2019-12-15] MEDS: DIGOXIN ELIX UDC 0.25 MG/5 ML UDC GT SCH (12:57)
[2019-12-15 17:09] VITALS: BP 125/60
[2019-12-15 20:01] VITALS: BP 137/72
[2019-12-15] MEDS: LATANOPROST EYE DROP 0.005% 2.5 ML BOTTLE EACHEYE SCH (21:02)
[2019-12-15] MEDS: TAMSULOSIN 0.4 MG CAP.SR.24H GT SCH (21:02)
[2019-12-16] MEDS: ALBUTEROL HALF STRENGTH 1.25 MG/3 ML VIAL.NEB NEB SCH ×4 (00:50→20:04)
--- NOTE | 2019-12-16 04:18 | NUR ---
PATIENT RECEIVED ON TRACH TO VENT WITH SETTINGS OF AC 16, 500 VT, 30%, +5. SUCTIONED FOR MINIMAL, THICK, YELLOW SECRETIONS. GIVEN IN-LINE TREATMENTS WITH NO ADVERSE REACTIONS. AMBU BAG AT BEDSIDE. VENT AND PULSE OXIMETER ALARMS AUDIBLE AND VISIBLE. VENT PLUGGED INTO RED OUTLET. Addendum: 12/16/19 at 0420 by JAY OVALLES RT Amended: Links added.
[2019-12-16] MEDS: BLOOD SUGAR DIAGNOSTIC 1 EACH STRIP IN SCH ×3 (05:36→21:17)
[2019-12-16] MEDS: LEVOTHYROXINE SODIUM 50 MCG TABLET GT SCH (05:36)
[2019-12-16] MEDS: FUROSEMIDE 20 MG TABLET GT SCH (05:36)
[2019-12-16] MEDS: GLUCERNA 1.2 1,000 ML BOTTLE GT PRN (05:36)
[2019-12-16] MEDS: OMEPRAZOLE 20 MG CAPSULE.DR GT SCH (05:36)
[2019-12-16] MEDS: INSULIN ASPART/LISPRO 100 UNIT/ML CARTRIDGE SQ PRN ×3 (05:37→21:18)
[2019-12-16 07:34] VITALS: BP 99/55
[2019-12-16] MEDS: PROSOURCE / PROSTAT (PYXIS) 30 ML UDC GT SCH ×3 (08:00→17:48)
[2019-12-16] MEDS: VITS A AND D/WHITE PET/LANOLIN 5 GM PACKET TP SCH ×2 (09:00→20:04)
[2019-12-16] MEDS: HYDROGEN PEROXIDE 480 ML BOTTLE TP SCH ×2 (09:00→20:03)
[2019-12-16] MEDS: Z GUARD REMEDY 2 OZ OINT TP SCH ×2 (09:00→20:03)
[2019-12-16] MEDS: CLOTRIMAZOLE 1% 15 GM TUBE TP SCH ×2 (09:00→20:03)
[2019-12-16] MEDS: Z GUARD REMEDY 4 OZ OINT TP SCH ×10 (09:00→20:04)
[2019-12-16] MEDS: APIXABAN 5 MG TABLET GT SCH ×2 (09:47→17:48)
[2019-12-16] MEDS: KEPPRA 500 MG GT SCH ×2 (09:47→20:03)
[2019-12-16] MEDS: SIROLIMUS 1 MG GT SCH (09:48)
[2019-12-16] MEDS: SITAGLIPTIN PHOSPHATE 50 MG TABLET GT SCH (09:48)
[2019-12-16] MEDS: DIGOXIN ELIX UDC 0.25 MG/5 ML UDC GT SCH (12:56)
[2019-12-16 20:43] VITALS: BP 106/77
[2019-12-16] MEDS: LATANOPROST EYE DROP 0.005% 2.5 ML BOTTLE EACHEYE SCH (21:18)
[2019-12-16] MEDS: TAMSULOSIN 0.4 MG CAP.SR.24H GT SCH (21:19)
[2019-12-17] MEDS: ALBUTEROL HALF STRENGTH 1.25 MG/3 ML VIAL.NEB NEB SCH ×4 (01:58→19:50)
--- NOTE | 2019-12-17 03:02 | NUR ---
RT Pt trach remains on [facility] vent. no resp distress noted. trach secure and patent. Addendum: 12/17/19 at 0305 by LUZ GALLEGOS RT Amended: Links added.
[2019-12-17] MEDS: BLOOD SUGAR DIAGNOSTIC 1 EACH STRIP IN SCH ×3 (05:13→20:02)
[2019-12-17] MEDS: INSULIN ASPART/LISPRO 100 UNIT/ML CARTRIDGE SQ PRN ×3 (05:15→21:09)
[2019-12-17] MEDS: OMEPRAZOLE 20 MG CAPSULE.DR GT SCH (05:16)
[2019-12-17] MEDS: LEVOTHYROXINE SODIUM 50 MCG TABLET GT SCH (05:16)
[2019-12-17] MEDS: FUROSEMIDE 20 MG TABLET GT SCH (05:16)
[2019-12-17] MEDS: GLUCERNA 1.2 1,000 ML BOTTLE GT PRN (05:19)
[2019-12-17] MEDS: PROSOURCE / PROSTAT (PYXIS) 30 ML UDC GT SCH ×3 (08:00→17:00)
--- NOTE | 2019-12-17 08:41 | NUR ---
RT NOTE PT RCVD TRACH'D ON MECHANICAL VENT WITH CHARTED SETTINGS. SX DONE. PT TRACH IS PATENT AND SECURE. VENT ALARMS ARE ON, SET, AND AUDIBLE. VENT PLUGGED INTO RED OUTLET. AMBU BAG AT BEDSIDE. NO SOB NOTED AT THIS TIME. Addendum: 12/17/19 at 0841 by DEVANG BENNETT RT Amended: Links added.
[2019-12-17] MEDS: Z GUARD REMEDY 2 OZ OINT TP SCH ×2 (09:00→20:02)
[2019-12-17] MEDS: HYDROGEN PEROXIDE 480 ML BOTTLE TP SCH ×2 (09:00→21:01)
[2019-12-17] MEDS: CLOTRIMAZOLE 1% 15 GM TUBE TP SCH ×2 (09:00→20:02)
[2019-12-17] MEDS: VITS A AND D/WHITE PET/LANOLIN 5 GM PACKET TP SCH ×2 (09:00→20:02)
[2019-12-17] MEDS: SIROLIMUS 1 MG GT SCH (09:00)
[2019-12-17] MEDS: SITAGLIPTIN PHOSPHATE 50 MG TABLET GT SCH (09:00)
[2019-12-17] MEDS: KEPPRA 500 MG GT SCH ×2 (09:00→20:01)
[2019-12-17] MEDS: Z GUARD REMEDY 4 OZ OINT TP SCH ×10 (09:00→20:02)
[2019-12-17] MEDS: APIXABAN 5 MG TABLET GT SCH ×2 (09:00→17:00)
[2019-12-17 11:36] VITALS: BP 130/91
[2019-12-17] MEDS: DIGOXIN ELIX UDC 0.25 MG/5 ML UDC GT SCH (13:00)
--- NOTE | 2019-12-17 16:22 | NUR ---
DELMI faxed the patient's facesheet to DR. Miramontes's office tel: [phone] fax: [phone] to set up dental exam and cleaning for the patient. Per Mystery, the pt. can be seen 12/19/2019. Noted.
--- NOTE | 2019-12-17 20:17 | NUR ---
RN NOTES Seen and examined by Nadine Taylor NP, with NNO.
[2019-12-17] MEDS: ONDANSETRON 4 MG TAB.RAPDIS GT PRN (20:20)
[2019-12-17 20:56] VITALS: BP 112/72
[2019-12-17] MEDS: TAMSULOSIN 0.4 MG CAP.SR.24H GT SCH (21:48)
[2019-12-17] MEDS: LATANOPROST EYE DROP 0.005% 2.5 ML BOTTLE EACHEYE SCH (21:48)
[2019-12-18] MEDS: ALBUTEROL HALF STRENGTH 1.25 MG/3 ML VIAL.NEB NEB SCH ×4 (02:03→19:37)
--- NOTE | 2019-12-18 02:50 | NUR ---
RT Pt trach on [facility] vent settings. no resp distress noted. Addendum: 12/18/19 at 0251 by LUZ GALLEGOS RT Amended: Links added.
[2019-12-18] MEDS: GLUCERNA 1.2 1,000 ML BOTTLE GT PRN (03:33)
[2019-12-18] MEDS: BLOOD SUGAR DIAGNOSTIC 1 EACH STRIP IN SCH ×3 (05:11→20:17)
[2019-12-18] MEDS: FUROSEMIDE 20 MG TABLET GT SCH (05:12)
[2019-12-18] MEDS: LEVOTHYROXINE SODIUM 50 MCG TABLET GT SCH (05:12)
[2019-12-18] MEDS: OMEPRAZOLE 20 MG CAPSULE.DR GT SCH (05:12)
[2019-12-18] MEDS: INSULIN ASPART/LISPRO 100 UNIT/ML CARTRIDGE SQ PRN ×3 (05:14→20:18)
[2019-12-18] MEDS: HYDROGEN PEROXIDE 480 ML BOTTLE TP SCH ×2 (08:22→20:07)
--- NOTE | 2019-12-18 08:53 | NUR ---
PT RCVD TRACH'D ON MECHANICAL VENT WITH CHARTED SETTINGS. PT DEONDRE TX WELL. SX DONE. PT TRACH IS PATENT AND SECURE. VENT ALARMS ARE ON, SET, AND AUDIBLE. VENT PLUGGED INTO RED OUTLET. AMBU BAG AT BEDSIDE. NO SOB NOTED. Addendum: 12/18/19 at 0854 by MARI GARCIA RT Amended: Links added.
[2019-12-18] MEDS: Z GUARD REMEDY 4 OZ OINT TP SCH ×10 (08:55→20:20)
[2019-12-18] MEDS: SIROLIMUS 1 MG GT SCH (08:55)
[2019-12-18] MEDS: PROSOURCE / PROSTAT (PYXIS) 30 ML UDC GT SCH ×3 (08:55→16:57)
[2019-12-18] MEDS: CLOTRIMAZOLE 1% 15 GM TUBE TP SCH ×2 (08:55→20:19)
[2019-12-18] MEDS: KEPPRA 500 MG GT SCH ×2 (08:55→20:13)
[2019-12-18] MEDS: SITAGLIPTIN PHOSPHATE 50 MG TABLET GT SCH (08:55)
[2019-12-18] MEDS: VITS A AND D/WHITE PET/LANOLIN 5 GM PACKET TP SCH ×2 (08:55→20:20)
[2019-12-18] MEDS: APIXABAN 5 MG TABLET GT SCH ×2 (08:55→16:56)
[2019-12-18] MEDS: Z GUARD REMEDY 2 OZ OINT TP SCH ×2 (08:55→20:20)
[2019-12-18] MEDS: ACETAMINOPHEN 650 MG/20 ML UDC- SA PATIENTS-PAIN ONLY GT PRN (10:47)
[2019-12-18] MEDS: DIGOXIN ELIX UDC 0.25 MG/5 ML UDC GT SCH (13:00)
[2019-12-18 13:06] VITALS: BP 107/52
[2019-12-18] MEDS: TAMSULOSIN 0.4 MG CAP.SR.24H GT SCH (21:18)
[2019-12-18] MEDS: LATANOPROST EYE DROP 0.005% 2.5 ML BOTTLE EACHEYE SCH (21:18)
[2019-12-18 21:36] VITALS: BP 126/90
[2019-12-19] MEDS: ALBUTEROL HALF STRENGTH 1.25 MG/3 ML VIAL.NEB NEB SCH ×4 (01:16→19:23)
[2019-12-19] MEDS: BLOOD SUGAR DIAGNOSTIC 1 EACH STRIP IN SCH ×3 (05:02→21:54)
[2019-12-19] MEDS: INSULIN ASPART/LISPRO 100 UNIT/ML CARTRIDGE SQ PRN ×3 (05:04→21:55)
[2019-12-19] MEDS: FUROSEMIDE 20 MG TABLET GT SCH (05:05)
[2019-12-19] MEDS: OMEPRAZOLE 20 MG CAPSULE.DR GT SCH (05:05)
[2019-12-19] MEDS: LEVOTHYROXINE SODIUM 50 MCG TABLET GT SCH (05:05)
[2019-12-19] MEDS: PROSOURCE / PROSTAT (PYXIS) 30 ML UDC GT SCH ×3 (08:00→16:28)
[2019-12-19 08:01] VITALS: BP 126/64
[2019-12-19] MEDS: HYDROGEN PEROXIDE 480 ML BOTTLE TP SCH ×2 (08:26→20:06)
--- NOTE | 2019-12-19 08:31 | NUR ---
PT RCVD TRACH'D ON MECHANICAL VENT WITH CHARTED SETTINGS. PT DEONDRE TX WELL. SX DONE. PT TRACH IS PATENT AND SECURE. VENT ALARMS ARE ON, SET, AND AUDIBLE. VENT PLUGGED INTO RED OUTLET. AMBU BAG AT BEDSIDE. NO SOB NOTED. Addendum: 12/19/19 at 0831 by MARI GARCIA RT Amended: Links added.
[2019-12-19] MEDS: CLOTRIMAZOLE 1% 15 GM TUBE TP SCH ×2 (09:00→21:21)
[2019-12-19] MEDS: APIXABAN 5 MG TABLET GT SCH ×2 (09:50→16:28)
[2019-12-19] MEDS: SITAGLIPTIN PHOSPHATE 50 MG TABLET GT SCH (09:51)
[2019-12-19] MEDS: Z GUARD REMEDY 4 OZ OINT TP SCH ×10 (09:51→21:22)
[2019-12-19] MEDS: KEPPRA 500 MG GT SCH ×2 (09:51→21:21)
[2019-12-19] MEDS: Z GUARD REMEDY 2 OZ OINT TP SCH ×2 (09:51→21:21)
[2019-12-19] MEDS: SIROLIMUS 1 MG GT SCH (09:51)
[2019-12-19] MEDS: VITS A AND D/WHITE PET/LANOLIN 5 GM PACKET TP SCH ×2 (09:52→21:22)
--- NOTE | 2019-12-19 12:08 | NUR ---
Family Support Group: The patients family did not attend the family support group today.
[2019-12-19] MEDS: DIGOXIN ELIX UDC 0.25 MG/5 ML UDC GT SCH (13:14)
[2019-12-19] MEDS: GLUCERNA 1.2 1,000 ML BOTTLE GT PRN (18:17)
[2019-12-19 19:39] VITALS: BP 124/60
[2019-12-19] MEDS: LATANOPROST EYE DROP 0.005% 2.5 ML BOTTLE EACHEYE SCH (21:22)
[2019-12-19] MEDS: TAMSULOSIN 0.4 MG CAP.SR.24H GT SCH (21:22)
[2019-12-20] MEDS: ALBUTEROL HALF STRENGTH 1.25 MG/3 ML VIAL.NEB NEB SCH ×4 (00:38→19:49)
[2019-12-20] MEDS: FUROSEMIDE 20 MG TABLET GT SCH (05:30)
[2019-12-20] MEDS: OMEPRAZOLE 20 MG CAPSULE.DR GT SCH (05:30)
[2019-12-20] MEDS: LEVOTHYROXINE SODIUM 50 MCG TABLET GT SCH (05:30)
[2019-12-20] MEDS: BLOOD SUGAR DIAGNOSTIC 1 EACH STRIP IN SCH ×3 (05:54→21:05)
[2019-12-20] MEDS: INSULIN ASPART/LISPRO 100 UNIT/ML CARTRIDGE SQ PRN ×3 (05:56→21:06)
[2019-12-20 07:28] VITALS: BP 136/73
[2019-12-20] MEDS: PROSOURCE / PROSTAT (PYXIS) 30 ML UDC GT SCH ×3 (08:00→17:00)
[2019-12-20] MEDS: HYDROGEN PEROXIDE 480 ML BOTTLE TP SCH ×2 (09:00→20:40)
[2019-12-20] MEDS: APIXABAN 5 MG TABLET GT SCH ×2 (09:35→17:00)
[2019-12-20] MEDS: SIROLIMUS 1 MG GT SCH (09:36)
[2019-12-20] MEDS: CLOTRIMAZOLE 1% 15 GM TUBE TP SCH ×2 (09:36→20:35)
[2019-12-20] MEDS: KEPPRA 500 MG GT SCH ×2 (09:36→20:35)
[2019-12-20] MEDS: Z GUARD REMEDY 2 OZ OINT TP SCH (09:36)
[2019-12-20] MEDS: SITAGLIPTIN PHOSPHATE 50 MG TABLET GT SCH (09:36)
[2019-12-20] MEDS: Z GUARD REMEDY 4 OZ OINT TP SCH ×9 (09:36→20:35)
[2019-12-20] MEDS: VITS A AND D/WHITE PET/LANOLIN 5 GM PACKET TP SCH ×2 (09:38→20:35)
--- NOTE | 2019-12-20 12:18 | NUR ---
Seen by LENKA Taylor. Showed her pt's swollen feet (edema). LENKA Taylor ordered to increase Lasix from 20 to 40 mg GT daily until 12/23/19, then resume Lasix 20 mg GT daily on 12/24/19. She also ordered to do BMP on 12/24/19. Informed Trevon.
[2019-12-20] MEDS: DIGOXIN ELIX UDC 0.25 MG/5 ML UDC GT SCH (12:27)
[2019-12-20] MEDS: GLUCERNA 1.2 1,000 ML BOTTLE GT PRN (12:28)
[2019-12-20] MEDS: POTASSIUM CHLORIDE 20 MEQ POWDER PACKET GT SCH (13:36)
[2019-12-20] MEDS ORDERED: FUROSEMIDE 20 MG TABLET GT ONE (14:00)
[2019-12-20 20:34] VITALS: BP 114/62
[2019-12-20] MEDS: LATANOPROST EYE DROP 0.005% 2.5 ML BOTTLE EACHEYE SCH (21:04)
[2019-12-20] MEDS: TAMSULOSIN 0.4 MG CAP.SR.24H GT SCH (21:05)
[2019-12-21] MEDS: ALBUTEROL HALF STRENGTH 1.25 MG/3 ML VIAL.NEB NEB SCH ×4 (01:48→19:31)
[2019-12-21] MEDS: BLOOD SUGAR DIAGNOSTIC 1 EACH STRIP IN SCH ×3 (05:33→21:06)
[2019-12-21] MEDS: OMEPRAZOLE 20 MG CAPSULE.DR GT SCH (05:33)
[2019-12-21] MEDS: LEVOTHYROXINE SODIUM 50 MCG TABLET GT SCH (05:33)
[2019-12-21] MEDS: INSULIN ASPART/LISPRO 100 UNIT/ML CARTRIDGE SQ PRN ×3 (05:35→21:08)
[2019-12-21 07:34] VITALS: BP 127/71
[2019-12-21] MEDS: HYDROGEN PEROXIDE 480 ML BOTTLE TP SCH ×2 (07:34→21:15)
[2019-12-21] MEDS: APIXABAN 5 MG TABLET GT SCH ×2 (08:17→17:54)
[2019-12-21] MEDS: KEPPRA 500 MG GT SCH ×2 (08:17→21:06)
[2019-12-21] MEDS: PROSOURCE / PROSTAT (PYXIS) 30 ML UDC GT SCH ×3 (08:17→17:54)
[2019-12-21] MEDS: SIROLIMUS 1 MG GT SCH (08:18)
[2019-12-21] MEDS: VITS A AND D/WHITE PET/LANOLIN 5 GM PACKET TP SCH ×2 (08:18→21:07)
[2019-12-21] MEDS: Z GUARD REMEDY 4 OZ OINT TP SCH ×8 (08:18→21:07)
[2019-12-21] MEDS: SITAGLIPTIN PHOSPHATE 50 MG TABLET GT SCH (08:18)
[2019-12-21] MEDS: POTASSIUM CHLORIDE 20 MEQ POWDER PACKET GT SCH (08:18)
[2019-12-21] MEDS: FUROSEMIDE 40 MG TABLET GT SCH (08:18)
[2019-12-21] MEDS: CLOTRIMAZOLE 1% 15 GM TUBE TP SCH (08:18)
[2019-12-21] MEDS: DIGOXIN ELIX UDC 0.25 MG/5 ML UDC GT SCH (12:32)
[2019-12-21] MEDS: GLUCERNA 1.2 1,000 ML BOTTLE GT PRN (12:35)
--- NOTE | 2019-12-21 16:11 | NUR ---
INTERDISCIPLINARY PLAN OF CARE CONFERENCE took place today. The patients son, Trevon Albrecht [phone] was in attendance. Charge nurse discussed the patients is stable; Lasix changed to 40 mg daily until 12/23/19 then resume Lasix 20 mg GT daily on 12/24/2019; BMP on 12/24/2019; New order for UA. Dr. Alicea and Interdisciplinary team discussed the plan of care in detail. Current orders as well as treatments and medications were reviewed. The IDT addressed all of Penny questions. Please see other disciplines IDT notes for further details.
--- NOTE | 2019-12-21 16:18 | NUR ---
The patients son, Trevon [phone] stated that the patient is able to express if he has pain. However, the pt. is rarely awake upon SWs visits and has not made eye contact or communicated any needs. SW accompanied Trevon to visit the patient. Trevon greeted the patient and the patient opened his eyes. Trevon introduced the SW and the patient made appropriate eye contact. Trevon asked the patient if he is experiencing pain. The patient nodded yes. Trevon pointed and asked if patient is experiencing pain in different body parts. The patient nodded yes to having pain in his left hand.
[2019-12-21 20:00] VITALS: BP 113/52
[2019-12-21] MEDS: LATANOPROST EYE DROP 0.005% 2.5 ML BOTTLE EACHEYE SCH (21:07)
[2019-12-21] MEDS: TAMSULOSIN 0.4 MG CAP.SR.24H GT SCH (21:07)
[2019-12-21] MEDS: SIMETHICONE 80 MG TAB.CHEW GT SCH (23:39)
[2019-12-22] MEDS: ALBUTEROL HALF STRENGTH 1.25 MG/3 ML VIAL.NEB NEB SCH ×4 (00:52→19:26)
[2019-12-22] MEDS: BLOOD SUGAR DIAGNOSTIC 1 EACH STRIP IN SCH ×3 (05:14→20:18)
[2019-12-22] MEDS: LEVOTHYROXINE SODIUM 50 MCG TABLET GT SCH (05:14)
[2019-12-22] MEDS: SIMETHICONE 80 MG TAB.CHEW GT SCH ×4 (05:14→23:05)
[2019-12-22] MEDS: OMEPRAZOLE 20 MG CAPSULE.DR GT SCH (05:14)
[2019-12-22] MEDS: INSULIN ASPART/LISPRO 100 UNIT/ML CARTRIDGE SQ PRN ×3 (05:15→21:05)
[2019-12-22 06:09] LABS: APPEARANCE,URINE CLEAR (CLEAR); BILIRUBIN,URINE NEGATIVE (NEGATIVE); BLOOD, URINE NEGATIVE Ery/uL (NEGATIVE); COLOR,URINE YELLOW (YELLOW); KETONES,URINE NEGATIVE (NEGATIVE); LEUKOCYTE ESTERASE ,URINE NEGATIVE (NEGATIVE); NITRITE, URINE NEGATIVE (NEGATIVE); PROTEIN,URINE NEGATIVE (NEGATIVE); UGLUCOSE NEGATIVE (NEGATIVE); UROBILINOGEN,URINE 0.2 EU/dL (0.2)
[2019-12-22] MEDS: PROSOURCE / PROSTAT (PYXIS) 30 ML UDC GT SCH ×3 (08:00→17:18)
[2019-12-22 08:08] VITALS: BP 104/89
[2019-12-22] MEDS: HYDROGEN PEROXIDE 480 ML BOTTLE TP SCH ×2 (08:21→21:13)
[2019-12-22] MEDS: POTASSIUM CHLORIDE 20 MEQ POWDER PACKET GT SCH (09:49)
[2019-12-22] MEDS: FUROSEMIDE 40 MG TABLET GT SCH (09:49)
[2019-12-22] MEDS: SIROLIMUS 1 MG GT SCH (09:49)
[2019-12-22] MEDS: SITAGLIPTIN PHOSPHATE 50 MG TABLET GT SCH (09:49)
[2019-12-22] MEDS: KEPPRA 500 MG GT SCH ×2 (09:49→20:02)
[2019-12-22] MEDS: APIXABAN 5 MG TABLET GT SCH ×2 (09:49→17:18)
[2019-12-22] MEDS: Z GUARD REMEDY 4 OZ OINT TP SCH ×8 (09:49→20:02)
[2019-12-22] MEDS: VITS A AND D/WHITE PET/LANOLIN 5 GM PACKET TP SCH ×2 (09:49→20:02)
[2019-12-22] MEDS: GLUCERNA 1.2 1,000 ML BOTTLE GT PRN (10:40)
[2019-12-22] MEDS: DIGOXIN ELIX UDC 0.25 MG/5 ML UDC GT SCH (12:25)
--- NOTE | 2019-12-22 13:02 | NUR ---
Relayed urinalysis result to Dr. Alicea. Notified Dr. Alicea of current BS levels, DM meds (Januvia and Insulin SS w/ mild coverage q 8hrs). Per Dr. Alicea, no changes to be made at this time.
--- NOTE | 2019-12-22 15:22 | NUR ---
RT NOTE RECEIVED PATIENT ON MECHANICAL VENT WITH ORDERED SETTINGS. ALARMS ON AND AUDIBLE. VENT PLUGGED IN TO RED OUTLET. TRACH TUBE IN PLACE, PATENT, AND SECURE WITH TRACH TIE. AMBU BAG AND BACK UP TRACH BY THE BEDSIDE. NO SIGNS OF ANY DISTRESS AT THIS TIME.
[2019-12-22 19:38] VITALS: BP 118/66
[2019-12-22] MEDS: TAMSULOSIN 0.4 MG CAP.SR.24H GT SCH (21:04)
[2019-12-22] MEDS: LATANOPROST EYE DROP 0.005% 2.5 ML BOTTLE EACHEYE SCH (21:04)
[2019-12-23] MEDS: ALBUTEROL HALF STRENGTH 1.25 MG/3 ML VIAL.NEB NEB SCH ×4 (01:46→19:53)
[2019-12-23] MEDS: OMEPRAZOLE 20 MG CAPSULE.DR GT SCH (05:18)
[2019-12-23] MEDS: INSULIN ASPART/LISPRO 100 UNIT/ML CARTRIDGE SQ PRN ×3 (05:18→20:16)
[2019-12-23] MEDS: BLOOD SUGAR DIAGNOSTIC 1 EACH STRIP IN SCH ×3 (05:18→20:03)
[2019-12-23] MEDS: LEVOTHYROXINE SODIUM 50 MCG TABLET GT SCH (05:18)
[2019-12-23] MEDS: GLUCERNA 1.2 1,000 ML BOTTLE GT PRN (05:18)
[2019-12-23] MEDS: SIMETHICONE 80 MG TAB.CHEW GT SCH ×3 (05:18→17:08)
[2019-12-23 07:27] VITALS: BP 120/61
[2019-12-23] MEDS: PROSOURCE / PROSTAT (PYXIS) 30 ML UDC GT SCH ×3 (08:00→17:08)
[2019-12-23] MEDS: HYDROGEN PEROXIDE 480 ML BOTTLE TP SCH ×2 (09:25→21:13)
[2019-12-23] MEDS: APIXABAN 5 MG TABLET GT SCH ×2 (09:42→17:08)
[2019-12-23] MEDS: SIROLIMUS 1 MG GT SCH (09:43)
[2019-12-23] MEDS: POTASSIUM CHLORIDE 20 MEQ POWDER PACKET GT SCH (09:43)
[2019-12-23] MEDS: SITAGLIPTIN PHOSPHATE 50 MG TABLET GT SCH (09:43)
[2019-12-23] MEDS: VITS A AND D/WHITE PET/LANOLIN 5 GM PACKET TP SCH ×2 (09:43→20:03)
[2019-12-23] MEDS: KEPPRA 500 MG GT SCH ×2 (09:43→20:02)
[2019-12-23] MEDS: FUROSEMIDE 40 MG TABLET GT SCH (09:43)
[2019-12-23] MEDS: Z GUARD REMEDY 4 OZ OINT TP SCH ×8 (09:43→20:03)
[2019-12-23] MEDS: DIGOXIN ELIX UDC 0.25 MG/5 ML UDC GT SCH (13:16)
[2019-12-23] MEDS: ACETAMINOPHEN 650 MG/20 ML UDC- SA PATIENTS-FEVER ONLY GT PRN (17:22)
--- NOTE | 2019-12-23 17:45 | NUR ---
Resident noted with elevated temp. 101.6F per axilla, HR- 116. Informed Dr. Hood with new orders and carried out. UA C&S- collected. CBC, CMP, blood culture x 2- done. CXR- requested. Cooling measures done, PRN Tylenol given. Left message to Trevon Albrecht. Will continue to monitor.
[2019-12-23 18:45] LABS: BASOPHILS # (AUTO) 0.1 /CMM (0.0-0.2); BASOPHILS % (AUTO) 0.7 % (0.0-2.0); EOSINOPHILS % (AUTO) 0.6 % (0.0-6.0); HEMATOCRIT 36 % (39-51); HEMOGLOBIN 11.4 g/dL (13.5-17.5); LYMPHOCYTES # (AUTO) 0.6 /CMM (0.8-4.8); LYMPHOCYTES % (AUTO) 5.3 % (20.0-44.0); MEAN CORPUSCULAR HGB CONC 31 g/dl (31.0-36.0); MEAN CORPUSCULAR VOLUME 99 fL (80-96); MONOCYTES # (AUTO) 0.9 /CMM (0.1-1.30); MONOCYTES % (AUTO) 8.2 % (2.0-12.0); NEUTROPHILS # (AUTO) 9.3 /CMM (1.8-8.9); NEUTROPHILS % (AUTO) 85.2 % (43.0-81.0); PLATELET COUNT (AUTO) 181 /CMM (150-450); RED BLOOD CELL COUNT(AUTO) 3.69 MIL/uL (4.5-6.0); WHITE BLOOD COUNT (AUTO) 10.9 K/uL (4.3-11.0)
--- NOTE | 2019-12-23 19:00 | NUR ---
Latest temp. 100.8F. Will continue to monitor.
--- NOTE | 2019-12-23 19:30 | NUR ---
RN NOTES Pt continues with fever, temp 101.1, cooling measures rendered. Pt appears to be comfortable. No respiratory distress noted. Awaiting for CXR to be done. Will continue to monitor.
[2019-12-23 19:32] LABS: APPEARANCE,URINE SL CLOUDY (CLEAR); BILIRUBIN,URINE NEGATIVE (NEGATIVE); BLOOD, URINE SMALL Ery/uL (NEGATIVE); COLOR,URINE YELLOW (YELLOW); KETONES,URINE NEGATIVE (NEGATIVE); LEUKOCYTE ESTERASE ,URINE MODERATE (NEGATIVE); NITRITE, URINE POSITIVE (NEGATIVE); PROTEIN,URINE TRACE mg/dl (NEGATIVE); UGLUCOSE 100 MG/DL mg/dL (NEGATIVE); UROBILINOGEN,URINE 0.2 EU/dL (0.2)
[2019-12-23 19:46] LABS: BACTERIA,URINE 4+ /HPF (None Seen); SQUAMOUS EPITHELIAL CELL,UR 0-2 /HPF (None Seen); WBC,URINE 21-50 /HPF (0-3)
[2019-12-23 19:50] LABS: ALBUMIN 3.1 g/dL (3.4-5.0); BILIRUBIN,TOTAL 0.7 mg/dL (0.2-1.0); CALCIUM, SERUM 9.2 mg/dL (8.5-10.1); CREATININE 1.2 mg/dL (0.6-1.3); POTASSIUM 4.3 mmol/L (3.5-5.1); TOTAL PROTEIN, SERUM 7.7 g/dL (6.4-8.2)
[2019-12-23 20:02] VITALS: BP 112/75
[2019-12-23] MEDS: LATANOPROST EYE DROP 0.005% 2.5 ML BOTTLE EACHEYE SCH (21:25)
[2019-12-23] MEDS: TAMSULOSIN 0.4 MG CAP.SR.24H GT SCH (21:25)
[2019-12-24] MEDS: SIMETHICONE 80 MG TAB.CHEW GT SCH ×5 (00:17→23:46)
[2019-12-24] MEDS: GLUCERNA 1.2 1,000 ML BOTTLE GT PRN ×2 (00:24→17:15)
[2019-12-24] MEDS: ALBUTEROL HALF STRENGTH 1.25 MG/3 ML VIAL.NEB NEB SCH ×4 (00:32→20:13)
[2019-12-24] MEDS: BLOOD SUGAR DIAGNOSTIC 1 EACH STRIP IN SCH ×3 (05:06→20:17)
[2019-12-24] MEDS: OMEPRAZOLE 20 MG CAPSULE.DR GT SCH (05:08)
[2019-12-24] MEDS: LEVOTHYROXINE SODIUM 50 MCG TABLET GT SCH (05:08)
[2019-12-24] MEDS: INSULIN ASPART/LISPRO 100 UNIT/ML CARTRIDGE SQ PRN ×3 (05:10→20:20)
--- NOTE | 2019-12-24 06:09 | NUR ---
Sub Acute Nurses Notes: Pts temp was monitored due to an elevated temp., Temperature was ck @ 1900 it was 101.0 degrees, cooling measure continued, @ 2100 pts temp was nando it was 99.5, @ midnight it was nando again it was 98.9, monitoring still continued, @ 0600 it was nando again and it was 99.1, continue to monitor pts temp and indorse it to the morning shift.
[2019-12-24 07:46] LABS: CALCIUM, SERUM 8.9 mg/dL (8.5-10.1)
[2019-12-24 07:56] VITALS: BP 132/66
[2019-12-24] MEDS: PROSOURCE / PROSTAT (PYXIS) 30 ML UDC GT SCH ×3 (08:00→17:16)
[2019-12-24] MEDS: SIROLIMUS 1 MG GT SCH (09:00)
[2019-12-24] MEDS: Z GUARD REMEDY 4 OZ OINT TP SCH ×8 (09:00→20:17)
[2019-12-24] MEDS ORDERED: FUROSEMIDE 20 MG TABLET PO SCH (09:00)
[2019-12-24] MEDS: VITS A AND D/WHITE PET/LANOLIN 5 GM PACKET TP SCH ×2 (09:00→20:17)
[2019-12-24] MEDS: HYDROGEN PEROXIDE 480 ML BOTTLE TP SCH ×2 (09:00→21:00)
[2019-12-24] MEDS: APIXABAN 5 MG TABLET GT SCH ×2 (09:00→17:16)
[2019-12-24] MEDS: SITAGLIPTIN PHOSPHATE 50 MG TABLET GT SCH (09:00)
[2019-12-24] MEDS: KEPPRA 500 MG GT SCH ×2 (09:00→20:13)
[2019-12-24] MEDS: DIGOXIN ELIX UDC 0.25 MG/5 ML UDC GT SCH (12:23)
--- NOTE | 2019-12-24 13:30 | NUR ---
Seen by LENKA Taylor. Pt's edema in his feet has improved but some swelling was still noted. Received order to give Lasix 40 mg GT x 2 days then resume Lasix 20 mg GT daily, no more KCl supplement. Notified pt's son. Addendum: 12/24/19 at 1748 by IRENE DONIS RN Lab results seen by LENKA Taylor.
[2019-12-24 19:50] VITALS: BP 128/83
[2019-12-24] MEDS: LATANOPROST EYE DROP 0.005% 2.5 ML BOTTLE EACHEYE SCH (22:02)
[2019-12-24] MEDS: TAMSULOSIN 0.4 MG CAP.SR.24H GT SCH (22:02)
[2019-12-25] MEDS: ALBUTEROL HALF STRENGTH 1.25 MG/3 ML VIAL.NEB NEB SCH ×4 (01:48→19:11)
[2019-12-25] MEDS: BLOOD SUGAR DIAGNOSTIC 1 EACH STRIP IN SCH ×3 (04:57→20:08)
[2019-12-25] MEDS: OMEPRAZOLE 20 MG CAPSULE.DR GT SCH (05:00)
[2019-12-25] MEDS: SIMETHICONE 80 MG TAB.CHEW GT SCH ×3 (05:00→17:23)
[2019-12-25] MEDS: LEVOTHYROXINE SODIUM 50 MCG TABLET GT SCH (05:00)
[2019-12-25] MEDS: INSULIN ASPART/LISPRO 100 UNIT/ML CARTRIDGE SQ PRN ×3 (05:06→20:12)
--- NOTE | 2019-12-25 06:43 | NUR ---
PT WAS RECEIVED FROM THE MORNING SHIFT WITH A TEMP. OF 99.8, COOLING MEASURE WAS ALREADY STARTED FROM THE MORNING SHIFT, @2100 TEMPERATURE WAS 99.5, COOLING MEASURED CONTINUE AND CONTINUED TO MONITOR PT FOR ELEVATED TEMP, @ 2400 TEMP WAS JESUS AGAIN, IT WAS 99.0, MONITORING CONTINUED, @ 0600 IT WAS JESUS AGAIN AND IT WAS 100.9, COOLING MEASURE STILL CONTINUED AND INDORSED IT TO THE MORNING SHIFT.
[2019-12-25 07:54] VITALS: BP 130/64
[2019-12-25] MEDS: PROSOURCE / PROSTAT (PYXIS) 30 ML UDC GT SCH ×3 (08:00→17:23)
[2019-12-25] MEDS: HYDROGEN PEROXIDE 480 ML BOTTLE TP SCH ×2 (08:59→21:00)
[2019-12-25] MEDS: APIXABAN 5 MG TABLET GT SCH ×2 (09:00→17:23)
[2019-12-25] MEDS: VITS A AND D/WHITE PET/LANOLIN 5 GM PACKET TP SCH ×2 (09:00→20:09)
[2019-12-25] MEDS: FUROSEMIDE 40 MG TABLET GT SCH (09:00)
[2019-12-25] MEDS: SITAGLIPTIN PHOSPHATE 50 MG TABLET GT SCH (09:00)
[2019-12-25] MEDS: SIROLIMUS 1 MG GT SCH (09:00)
[2019-12-25] MEDS: Z GUARD REMEDY 4 OZ OINT TP SCH ×8 (09:00→20:09)
[2019-12-25] MEDS: KEPPRA 500 MG GT SCH ×2 (09:00→20:05)
--- NOTE | 2019-12-25 09:00 | NUR ---
Seen and examined by Dr. Alicea, no new order given.
[2019-12-25] MEDS: ACETAMINOPHEN 650 MG/20 ML UDC- SA PATIENTS-FEVER ONLY GT PRN ×2 (10:00→17:44)
--- NOTE | 2019-12-25 12:30 | NUR ---
Urine culture result relayed to Dr. Hood, with new order start Meropenem per pharmacy dosing x 7 days for ESBL of urine. Placed on contact isolation precaution. Staff educated regarding PPE use and handwashing. Will continue to monitor.
--- NOTE | 2019-12-25 13:00 | NUR ---
Left message to MILENA Albrecht regarding new orders.
[2019-12-25] MEDS: DIGOXIN ELIX UDC 0.25 MG/5 ML UDC GT SCH (13:14)
--- NOTE | 2019-12-25 14:20 | NUR ---
Ha Reinoso gave dosing for Meropenem 500 mg IV q 8 hrs x 7 days.
[2019-12-25] MEDS: GLUCERNA 1.2 1,000 ML BOTTLE GT PRN (15:02)
--- NOTE | 2019-12-25 15:30 | NUR ---
Adam Duncan came to visit patient gave update regarding patient new antibiotic IV order for ESBL of urine. Educated about PPE use and handwashing.
[2019-12-25] MEDS: MEROPENEM 500 MG in IV NS 0.9% 50 ML IV SCH ×2 (15:50→23:14)
--- NOTE | 2019-12-25 17:44 | NUR ---
Temp. 101.2F, cooling measures done, PRN Tylenol given. No s/sx of distress. Will continue to monitor.
[2019-12-25 19:45] VITALS: BP 112/72
[2019-12-25] MEDS: TAMSULOSIN 0.4 MG CAP.SR.24H GT SCH (21:20)
[2019-12-25] MEDS: LATANOPROST EYE DROP 0.005% 2.5 ML BOTTLE EACHEYE SCH (21:20)
[2019-12-25] MEDS: ONDANSETRON 4 MG TAB.RAPDIS GT PRN (21:56)
[2019-12-26] MEDS: SIMETHICONE 80 MG TAB.CHEW GT SCH ×4 (00:11→17:10)
[2019-12-26] MEDS: ALBUTEROL HALF STRENGTH 1.25 MG/3 ML VIAL.NEB NEB SCH ×4 (01:02→20:02)
[2019-12-26] MEDS: BLOOD SUGAR DIAGNOSTIC 1 EACH STRIP IN SCH ×3 (05:11→20:45)
[2019-12-26] MEDS: LEVOTHYROXINE SODIUM 50 MCG TABLET GT SCH (05:12)
[2019-12-26] MEDS: OMEPRAZOLE 20 MG CAPSULE.DR GT SCH (05:12)
[2019-12-26] MEDS: INSULIN ASPART/LISPRO 100 UNIT/ML CARTRIDGE SQ PRN ×4 (05:13→20:47)
[2019-12-26] MEDS: ACETAMINOPHEN 650 MG/20 ML UDC- SA PATIENTS-FEVER ONLY GT PRN (05:14)
[2019-12-26] MEDS: MEROPENEM 500 MG in IV NS 0.9% 50 ML IV SCH ×3 (06:15→23:00)
[2019-12-26 07:43] VITALS: BP 127/76
[2019-12-26] MEDS: PROSOURCE / PROSTAT (PYXIS) 30 ML UDC GT SCH ×3 (08:00→17:10)
[2019-12-26] MEDS: HYDROGEN PEROXIDE 480 ML BOTTLE TP SCH ×2 (08:41→21:00)
[2019-12-26] MEDS: SITAGLIPTIN PHOSPHATE 50 MG TABLET GT SCH (09:28)
[2019-12-26] MEDS: KEPPRA 500 MG GT SCH ×2 (09:28→20:45)
[2019-12-26] MEDS: APIXABAN 5 MG TABLET GT SCH ×2 (09:28→17:10)
[2019-12-26] MEDS: FUROSEMIDE 40 MG TABLET GT SCH (09:28)
[2019-12-26] MEDS: VITS A AND D/WHITE PET/LANOLIN 5 GM PACKET TP SCH ×2 (09:28→20:45)
[2019-12-26] MEDS: SIROLIMUS 1 MG GT SCH (09:28)
[2019-12-26] MEDS: Z GUARD REMEDY 4 OZ OINT TP SCH ×8 (09:28→20:45)
[2019-12-26] MEDS: DIGOXIN ELIX UDC 0.25 MG/5 ML UDC GT SCH (12:18)
[2019-12-26] MEDS: GLUCERNA 1.2 1,000 ML BOTTLE GT PRN (17:16)
--- NOTE | 2019-12-26 20:02 | NUR ---
RT NOTE PATIENT RECEIVED IN STABLE RESPIRATORY CONDITION. PATIENT IS TOLERATING CURRENT ORDERED VENT SETTINGS. NO SIGNS OF RESPIRATORY DISTRESS NOTED. TRACH IS PATENT AND SECURE. ALARMS ARE SET AND AUDIBLE. MECHANICAL VENT IS PLUGGED INTO RED OUTLET. EMERGENCY EQUIPMENT IS AT PATIENT BEDSIDE. WILL CONTINUE TO MONITOR. Addendum: 12/27/19 at 0502 by AGUILAR BOURNE RT Amended: Links added.
[2019-12-26 20:08] VITALS: BP 121/70
--- NOTE | 2019-12-26 21:30 | NUR ---
temp 99.7 @ 1999. calm. no s/s of distress noted. cooling measures rendered. effective. pt temp 98.8. all needs attended. will monitor closely.
[2019-12-26] MEDS: LATANOPROST EYE DROP 0.005% 2.5 ML BOTTLE EACHEYE SCH (22:08)
[2019-12-26] MEDS: TAMSULOSIN 0.4 MG CAP.SR.24H GT SCH (22:08)
--- NOTE | 2019-12-27 00:30 | NUR ---
pt asleep. no discomfort noted. temp 98.3. all needs attended. will continue to monitor closely.
[2019-12-27] MEDS: SIMETHICONE 80 MG TAB.CHEW GT SCH ×5 (00:35→23:48)
[2019-12-27] MEDS: ALBUTEROL HALF STRENGTH 1.25 MG/3 ML VIAL.NEB NEB SCH ×4 (01:36→19:40)
[2019-12-27] MEDS: ACETAMINOPHEN 650 MG/20 ML UDC- SA PATIENTS-PAIN ONLY GT PRN ×2 (01:44→14:56)
[2019-12-27] MEDS: OMEPRAZOLE 20 MG CAPSULE.DR GT SCH (05:35)
[2019-12-27] MEDS: LEVOTHYROXINE SODIUM 50 MCG TABLET GT SCH (05:35)
[2019-12-27] MEDS: BLOOD SUGAR DIAGNOSTIC 1 EACH STRIP IN SCH ×3 (05:35→21:30)
[2019-12-27] MEDS: INSULIN ASPART/LISPRO 100 UNIT/ML CARTRIDGE SQ PRN ×3 (05:39→21:31)
[2019-12-27] MEDS: MEROPENEM 500 MG in IV NS 0.9% 50 ML IV SCH ×3 (06:08→23:00)
[2019-12-27 07:47] VITALS: BP 143/76
[2019-12-27] MEDS: HYDROGEN PEROXIDE 480 ML BOTTLE TP SCH ×2 (08:39→21:05)
[2019-12-27] MEDS: PROSOURCE / PROSTAT (PYXIS) 30 ML UDC GT SCH ×3 (08:45→17:34)
[2019-12-27] MEDS: APIXABAN 5 MG TABLET GT SCH ×2 (09:01→17:34)
[2019-12-27] MEDS: KEPPRA 500 MG GT SCH ×2 (09:01→21:30)
[2019-12-27] MEDS: Z GUARD REMEDY 4 OZ OINT TP SCH ×10 (09:01→21:30)
[2019-12-27] MEDS: SITAGLIPTIN PHOSPHATE 50 MG TABLET GT SCH (09:01)
[2019-12-27] MEDS: VITS A AND D/WHITE PET/LANOLIN 5 GM PACKET TP SCH ×2 (09:01→21:30)
[2019-12-27] MEDS: FUROSEMIDE 20 MG TABLET GT SCH (09:01)
[2019-12-27] MEDS: SIROLIMUS 1 MG GT SCH (09:01)
[2019-12-27] MEDS: DIGOXIN ELIX UDC 0.25 MG/5 ML UDC GT SCH (12:33)
--- NOTE | 2019-12-27 19:24 | NUR ---
Informed LENKA Taylor that pt still has swelling on his upper and lower extremities, and that scrotum is also swollen now. LENKA Taylor said she has already ordered to increase Lasix for the past week, she said to refer to treating engineer helper.
--- NOTE | 2019-12-27 19:38 | NUR ---
Right upper arm midline double lumen placed by Dr Funk this afternoon. Pt tolerated well.
--- NOTE | 2019-12-27 19:40 | NUR ---
RT NOTE PATIENT RECEIVED IN STABLE RESPIRATORY CONDITION. PATIENT IS TOLERATING CURRENT ORDERED VENT SETTINGS. NO SIGNS OF RESPIRATORY DISTRESS NOTED. TRACH IS PATENT AND SECURE. ALARMS ARE SET AND AUDIBLE. MECHANICAL VENT IS PLUGGED INTO RED OUTLET. EMERGENCY EQUIPMENT IS AT PATIENT BEDSIDE. WILL CONTINUE TO MONITOR. Addendum: 12/27/19 at 2027 by AGUILAR BOURNE RT Amended: Links added.
[2019-12-27] MEDS: SIMETHICONE 80 MG TAB.CHEW GT PRN (20:00)
[2019-12-27 20:14] VITALS: BP 134/70
[2019-12-27] MEDS: TAMSULOSIN 0.4 MG CAP.SR.24H GT SCH (21:30)
[2019-12-27] MEDS: LATANOPROST EYE DROP 0.005% 2.5 ML BOTTLE EACHEYE SCH (21:30)
[2019-12-28] MEDS: ALBUTEROL HALF STRENGTH 1.25 MG/3 ML VIAL.NEB NEB SCH ×4 (01:19→19:30)
[2019-12-28] MEDS: OMEPRAZOLE 20 MG CAPSULE.DR GT SCH (05:04)
[2019-12-28] MEDS: LEVOTHYROXINE SODIUM 50 MCG TABLET GT SCH (05:04)
[2019-12-28] MEDS: SIMETHICONE 80 MG TAB.CHEW GT SCH ×3 (05:04→17:05)
[2019-12-28] MEDS: BLOOD SUGAR DIAGNOSTIC 1 EACH STRIP IN SCH ×3 (05:17→21:21)
[2019-12-28] MEDS: INSULIN ASPART/LISPRO 100 UNIT/ML CARTRIDGE SQ PRN ×3 (05:19→21:25)
[2019-12-28] MEDS: MEROPENEM 500 MG in IV NS 0.9% 50 ML IV SCH ×3 (06:24→23:09)
[2019-12-28] MEDS: PROSOURCE / PROSTAT (PYXIS) 30 ML UDC GT SCH ×3 (08:00→17:03)
--- NOTE | 2019-12-28 08:20 | NUR ---
Noted an electronic order from Dr. Mak in [facility] for Metformin 500 mg. Q 12 hours (DM). Order carried out.
[2019-12-28 08:38] VITALS: BP 121/62
[2019-12-28] MEDS: Z GUARD REMEDY 4 OZ OINT TP SCH ×10 (09:00→21:21)
[2019-12-28] MEDS: METFORMIN 500 MG TABLET PO SCH ×2 (09:00→17:03)
[2019-12-28] MEDS: HYDROGEN PEROXIDE 480 ML BOTTLE TP SCH ×2 (09:00→21:01)
[2019-12-28] MEDS: FUROSEMIDE 20 MG TABLET GT SCH ×2 (09:28→21:21)
[2019-12-28] MEDS: APIXABAN 5 MG TABLET GT SCH ×2 (09:28→17:03)
[2019-12-28] MEDS: SITAGLIPTIN PHOSPHATE 50 MG TABLET GT SCH (09:28)
[2019-12-28] MEDS: SIROLIMUS 1 MG GT SCH (09:28)
[2019-12-28] MEDS: KEPPRA 500 MG GT SCH ×2 (09:28→21:21)
[2019-12-28] MEDS: VITS A AND D/WHITE PET/LANOLIN 5 GM PACKET TP SCH ×2 (09:29→21:21)
--- NOTE | 2019-12-28 10:12 | NUR ---
Paged Dr. Mak to notify MD that patient has bilateral edema in the uppper and lower extremities including scrotum. Awaiting for MD's response.
--- NOTE | 2019-12-28 10:30 | NUR ---
Left a message to patient's son Trevon regarding new order for Metformin.
--- NOTE | 2019-12-28 11:40 | NUR ---
Made a follow-up call to Dr. Mak and regarding presence of edema. Renee from his office said that she relayed the message to MD, with new order to increase Lasix 20mg q 12 hours. Order carried out.
[2019-12-28] MEDS: GLUCERNA 1.2 1,000 ML BOTTLE GT PRN (12:00)
[2019-12-28] MEDS: ACETAMINOPHEN 650 MG/20 ML UDC- SA PATIENTS-FEVER ONLY GT PRN (12:30)
--- NOTE | 2019-12-28 12:30 | NUR ---
Resident's son Dakota at bedside made aware of new orders.
[2019-12-28] MEDS: DIGOXIN ELIX UDC 0.25 MG/5 ML UDC GT SCH (12:34)
[2019-12-28 20:06] VITALS: BP 126/61
[2019-12-28] MEDS: ONDANSETRON 4 MG TAB.RAPDIS GT PRN (21:00)
--- NOTE | 2019-12-28 21:00 | NUR ---
cn noted emesis approx 50 cc while doing rounds. given zofran 4 mg. pt calm. no s/s of discomfort. no respiratory distress. no gt residual noted, just small amount of gas. pt cleaned and repositioned for comfort. all needs attended. will continue to monitor closely.
[2019-12-28] MEDS: LATANOPROST EYE DROP 0.005% 2.5 ML BOTTLE EACHEYE SCH (21:21)
[2019-12-28] MEDS: TAMSULOSIN 0.4 MG CAP.SR.24H GT SCH (21:21)
[2019-12-29] MEDS: ALBUTEROL HALF STRENGTH 1.25 MG/3 ML VIAL.NEB NEB SCH ×4 (01:03→19:29)
[2019-12-29] MEDS: OMEPRAZOLE 20 MG CAPSULE.DR GT SCH (05:14)
[2019-12-29] MEDS: BLOOD SUGAR DIAGNOSTIC 1 EACH STRIP IN SCH ×3 (05:14→21:14)
[2019-12-29] MEDS: LEVOTHYROXINE SODIUM 50 MCG TABLET GT SCH (05:14)
[2019-12-29] MEDS: INSULIN ASPART/LISPRO 100 UNIT/ML CARTRIDGE SQ PRN ×3 (05:16→21:17)
[2019-12-29] MEDS: MEROPENEM 500 MG in IV NS 0.9% 50 ML IV SCH ×3 (06:06→22:38)
--- NOTE | 2019-12-29 07:15 | NUR ---
no additional episodes of emesis/nausea. no gastric residual noted during shift only moderate amount of air. abdomen soft and non distended. pt awake, calm. no s/s of discomfort. all needs attended. will endorse to oncoming shift.
[2019-12-29 07:52] VITALS: BP 126/70
[2019-12-29] MEDS: PROSOURCE / PROSTAT (PYXIS) 30 ML UDC GT SCH ×3 (08:00→17:17)
[2019-12-29] MEDS: HYDROGEN PEROXIDE 480 ML BOTTLE TP SCH ×2 (08:07→19:29)
--- NOTE | 2019-12-29 08:20 | NUR ---
PT RCVD TRACH'D ON MECHANICAL VENT WITH CHARTED SETTINGS. PT DEONDRE TX WELL. SX DONE. PT TRACH IS PATENT AND SECURE. VENT ALARMS ARE ON, SET, AND AUDIBLE. VENT PLUGGED INTO RED OUTLET. AMBU BAG AT BEDSIDE. NO SOB NOTED. Addendum: 12/29/19 at 0821 by MARI GARCIA RT Amended: Links added.
[2019-12-29] MEDS: APIXABAN 5 MG TABLET GT SCH ×2 (09:28→17:17)
[2019-12-29] MEDS: KEPPRA 500 MG GT SCH ×2 (09:37→21:14)
[2019-12-29] MEDS: SITAGLIPTIN PHOSPHATE 50 MG TABLET GT SCH (09:37)
[2019-12-29] MEDS: VITS A AND D/WHITE PET/LANOLIN 5 GM PACKET TP SCH ×2 (09:38→21:15)
[2019-12-29] MEDS: Z GUARD REMEDY 4 OZ OINT TP SCH ×10 (09:38→21:15)
[2019-12-29] MEDS: FUROSEMIDE 20 MG TABLET GT SCH ×2 (09:38→21:14)
[2019-12-29] MEDS: METFORMIN 500 MG TABLET PO SCH ×2 (09:38→17:17)
[2019-12-29] MEDS: SIROLIMUS 1 MG GT SCH (09:40)
--- NOTE | 2019-12-29 12:35 | NUR ---
Obtained an order from Dr. Hood to give daily KCL 10 meq/GT, patient is currently receiving Lasix 20mg Q12h. Addendum: 12/29/19 at 1656 by PERNELL CONNER RN Resident's son Dakota notified of new order. Appreciated the call.
[2019-12-29] MEDS: DIGOXIN ELIX UDC 0.25 MG/5 ML UDC GT SCH (12:37)
--- NOTE | 2019-12-29 14:46 | NUR ---
Notified Dr. Hood that pharmacy is requesting to get a potassium level prior to starting KCL 10meq. daily. said OK. Orders noted and carried out.
--- NOTE | 2019-12-29 18:30 | NUR ---
BMP result still pending at this time. Informed pharmacist Eddie and endorsed to incoming shift.
[2019-12-29 19:54] VITALS: BP 125/68
--- NOTE | 2019-12-29 21:11 | NUR ---
rn notes: contacted lab spoked with luke, followed up regarding blood draw order placed for bmp, per luke he will print the labels and will come to draw blood.
[2019-12-29] MEDS: TAMSULOSIN 0.4 MG CAP.SR.24H GT SCH (21:15)
[2019-12-29] MEDS: LATANOPROST EYE DROP 0.005% 2.5 ML BOTTLE EACHEYE SCH (21:15)
--- NOTE | 2019-12-29 22:10 | NUR ---
RN NOTES: DEFECT CUTTER CAME TO DRAW BLOOD (CBC ORDERED THIS AFTERNOON)
[2019-12-29 22:40] LABS: CARBON DIOXIDE 29 mmol/L (21-32); CHLORIDE 96 mmol/L (98-107); CREATININE 1.3 mg/dL (0.6-1.3); GLUCOSE 238 mg/dL (74-106); POTASSIUM 4.2 mmol/L (3.5-5.1); SODIUM SERUM 134 mmol/L (136-145); UREA NITROGEN, BLOOD 40 mg/dL (7-18)
[2019-12-30] MEDS: ALBUTEROL HALF STRENGTH 1.25 MG/3 ML VIAL.NEB NEB SCH ×4 (00:30→19:46)
[2019-12-30] MEDS: LEVOTHYROXINE SODIUM 50 MCG TABLET GT SCH (05:50)
[2019-12-30] MEDS: OMEPRAZOLE 20 MG CAPSULE.DR GT SCH (05:50)
[2019-12-30] MEDS: BLOOD SUGAR DIAGNOSTIC 1 EACH STRIP IN SCH ×3 (05:50→21:02)
[2019-12-30] MEDS: GLUCERNA 1.2 1,000 ML BOTTLE GT PRN (05:51)
[2019-12-30] MEDS: INSULIN ASPART/LISPRO 100 UNIT/ML CARTRIDGE SQ PRN ×2 (05:51→13:14)
[2019-12-30] MEDS: MEROPENEM 500 MG in IV NS 0.9% 50 ML IV SCH ×3 (06:27→23:00)
[2019-12-30 07:42] VITALS: BP 137/88
[2019-12-30] MEDS: PROSOURCE / PROSTAT (PYXIS) 30 ML UDC GT SCH ×3 (08:00→17:35)
[2019-12-30] MEDS: HYDROGEN PEROXIDE 480 ML BOTTLE TP SCH ×2 (08:01→21:45)
--- NOTE | 2019-12-30 08:26 | NUR ---
PT RCVD TRACH'D ON MECHANICAL VENT WITH CHARTED SETTINGS. PT DEONDRE TX WELL. SX DONE. PT TRACH IS PATENT AND SECURE. VENT ALARMS ARE ON, SET, AND AUDIBLE. VENT PLUGGED INTO RED OUTLET. AMBU BAG AT BEDSIDE. NO SOB NOTED. Addendum: 12/30/19 at 0827 by MARI GARCIA RT Amended: Links added.
--- NOTE | 2019-12-30 08:30 | NUR ---
Pharmacist (SO) aware of K+ level result is normal ,ok to start medication order of KCL 10 meq via GT daily (while pt. on lasix) . Noted and carried out.
[2019-12-30] MEDS: APIXABAN 5 MG TABLET GT SCH ×2 (09:54→17:35)
[2019-12-30] MEDS: SIROLIMUS 1 MG GT SCH (09:54)
[2019-12-30] MEDS: KEPPRA 500 MG GT SCH ×2 (09:54→21:01)
[2019-12-30] MEDS: FUROSEMIDE 20 MG TABLET GT SCH ×2 (09:58→21:02)
[2019-12-30] MEDS: METFORMIN 500 MG TABLET PO SCH ×2 (09:58→17:35)
[2019-12-30] MEDS: Z GUARD REMEDY 4 OZ OINT TP SCH ×10 (09:58→21:03)
[2019-12-30] MEDS: POTASSIUM CHLORIDE 20 MEQ POWDER PACKET GT SCH (09:58)
[2019-12-30] MEDS: SITAGLIPTIN PHOSPHATE 50 MG TABLET GT SCH (09:58)
[2019-12-30] MEDS: VITS A AND D/WHITE PET/LANOLIN 5 GM PACKET TP SCH ×2 (09:59→21:04)
[2019-12-30] MEDS: DIGOXIN ELIX UDC 0.25 MG/5 ML UDC GT SCH (13:13)
[2019-12-30 20:49] VITALS: BP 113/62
[2019-12-30] MEDS: LATANOPROST EYE DROP 0.005% 2.5 ML BOTTLE EACHEYE SCH (21:04)
[2019-12-30] MEDS: TAMSULOSIN 0.4 MG CAP.SR.24H GT SCH (21:04)
[2019-12-31] MEDS: ALBUTEROL HALF STRENGTH 1.25 MG/3 ML VIAL.NEB NEB SCH ×4 (02:09→19:17)
[2019-12-31] MEDS: OMEPRAZOLE 20 MG CAPSULE.DR GT SCH (05:49)
[2019-12-31] MEDS: LEVOTHYROXINE SODIUM 50 MCG TABLET GT SCH (05:49)
[2019-12-31] MEDS: BLOOD SUGAR DIAGNOSTIC 1 EACH STRIP IN SCH ×3 (05:49→21:23)
[2019-12-31] MEDS: INSULIN ASPART/LISPRO 100 UNIT/ML CARTRIDGE SQ PRN ×2 (05:50→12:26)
[2019-12-31] MEDS: MEROPENEM 500 MG in IV NS 0.9% 50 ML IV SCH (07:00)
[2019-12-31] MEDS: PROSOURCE / PROSTAT (PYXIS) 30 ML UDC GT SCH ×3 (08:00→16:59)
[2019-12-31] MEDS: HYDROGEN PEROXIDE 480 ML BOTTLE TP SCH ×2 (09:00→20:00)
[2019-12-31] MEDS: POTASSIUM CHLORIDE 20 MEQ POWDER PACKET GT SCH (09:51)
[2019-12-31] MEDS: METFORMIN 500 MG TABLET PO SCH ×2 (09:51→16:59)
[2019-12-31] MEDS: Z GUARD REMEDY 4 OZ OINT TP SCH ×10 (09:51→21:23)
[2019-12-31] MEDS: VITS A AND D/WHITE PET/LANOLIN 5 GM PACKET TP SCH ×2 (09:51→21:23)
[2019-12-31] MEDS: FUROSEMIDE 20 MG TABLET GT SCH ×2 (09:51→21:23)
[2019-12-31] MEDS: APIXABAN 5 MG TABLET GT SCH ×2 (09:51→16:59)
[2019-12-31] MEDS: SITAGLIPTIN PHOSPHATE 50 MG TABLET GT SCH (09:51)
[2019-12-31] MEDS: SIROLIMUS 1 MG GT SCH (09:51)
[2019-12-31] MEDS: KEPPRA 500 MG GT SCH ×2 (09:51→21:22)
[2019-12-31 11:17] VITALS: BP 143/62
[2019-12-31] MEDS: DIGOXIN ELIX UDC 0.25 MG/5 ML UDC GT SCH (12:24)
[2019-12-31] MEDS: GLUCERNA 1.2 1,000 ML BOTTLE GT PRN (18:26)
[2019-12-31 20:39] VITALS: BP 107/68
[2019-12-31] MEDS: LATANOPROST EYE DROP 0.005% 2.5 ML BOTTLE EACHEYE SCH (21:23)
[2019-12-31] MEDS: TAMSULOSIN 0.4 MG CAP.SR.24H GT SCH (21:24)
[2020-01-01] MEDS: ALBUTEROL HALF STRENGTH 1.25 MG/3 ML VIAL.NEB NEB SCH ×4 (01:58→19:23)
[2020-01-01] MEDS: OMEPRAZOLE 20 MG CAPSULE.DR GT SCH (05:55)
[2020-01-01] MEDS: LEVOTHYROXINE SODIUM 50 MCG TABLET GT SCH (05:55)
[2020-01-01] MEDS: BLOOD SUGAR DIAGNOSTIC 1 EACH STRIP IN SCH ×3 (05:55→21:12)
[2020-01-01] MEDS: INSULIN ASPART/LISPRO 100 UNIT/ML CARTRIDGE SQ PRN ×2 (05:55→12:10)
[2020-01-01 07:24] LABS: BASOPHILS % (AUTO) 0.3 % (0.0-2.0); EOSINOPHILS % (AUTO) 2.5 % (0.0-6.0); HEMATOCRIT 32 % (39-51); HEMOGLOBIN 10.3 g/dL (13.5-17.5); LYMPHOCYTES # (AUTO) 0.8 /CMM (0.8-4.8); LYMPHOCYTES % (AUTO) 10.6 % (20.0-44.0); MEAN CORPUSCULAR HGB CONC 32 g/dl (31.0-36.0); MEAN CORPUSCULAR VOLUME 95 fL (80-96); MONOCYTES # (AUTO) 0.7 /CMM (0.1-1.30); MONOCYTES % (AUTO) 8.8 % (2.0-12.0); NEUTROPHILS # (AUTO) 5.9 /CMM (1.8-8.9); NEUTROPHILS % (AUTO) 77.8 % (43.0-81.0); PLATELET COUNT (AUTO) 257 /CMM (150-450); RED BLOOD CELL COUNT(AUTO) 3.39 MIL/uL (4.5-6.0); WHITE BLOOD COUNT (AUTO) 7.5 K/uL (4.3-11.0)
[2020-01-01 07:43] LABS: ALBUMIN 2.8 g/dL (3.4-5.0); BILIRUBIN,TOTAL 0.7 mg/dL (0.2-1.0); CALCIUM, SERUM 9.4 mg/dL (8.5-10.1); CREATININE 1.1 mg/dL (0.6-1.3); PHOSPHORUS 2.8 mg/dL (2.5-4.9); TOTAL PROTEIN, SERUM 7.4 g/dL (6.4-8.2)
[2020-01-01] MEDS: POTASSIUM CHLORIDE 20 MEQ POWDER PACKET GT SCH (08:15)
[2020-01-01] MEDS: SIROLIMUS 1 MG GT SCH (08:15)
[2020-01-01] MEDS: FUROSEMIDE 20 MG TABLET GT SCH ×2 (08:15→21:11)
[2020-01-01] MEDS: SITAGLIPTIN PHOSPHATE 50 MG TABLET GT SCH (08:15)
[2020-01-01] MEDS: METFORMIN 500 MG TABLET PO SCH ×2 (08:15→17:35)
[2020-01-01] MEDS: PROSOURCE / PROSTAT (PYXIS) 30 ML UDC GT SCH ×3 (08:15→17:35)
[2020-01-01] MEDS: KEPPRA 500 MG GT SCH ×2 (08:15→21:11)
[2020-01-01] MEDS: APIXABAN 5 MG TABLET GT SCH ×2 (08:15→17:35)
[2020-01-01] MEDS: HYDROGEN PEROXIDE 480 ML BOTTLE TP SCH ×2 (08:42→21:00)
[2020-01-01] MEDS: Z GUARD REMEDY 4 OZ OINT TP SCH ×4 (09:00→21:12)
[2020-01-01] MEDS: VITS A AND D/WHITE PET/LANOLIN 5 GM PACKET TP SCH ×2 (09:00→21:12)
[2020-01-01 10:59] VITALS: BP 124/86
[2020-01-01] MEDS: DIGOXIN ELIX UDC 0.25 MG/5 ML UDC GT SCH (12:08)
[2020-01-01] MEDS: GLUCERNA 1.2 1,000 ML BOTTLE GT PRN (13:38)
--- NOTE | 2020-01-01 15:00 | NUR ---
Pt seen by Dr Alicea today. Received order to place pt on SIMV 6 PS 15 PEEP +5 on 01/07/20 then JUAN in 2 hours. Addendum: 01/01/20 at 1514 by IRENE DONIS RN Notified pt's daron Lestre.
--- NOTE | 2020-01-01 16:43 | NUR ---
RT NOTE Pt received trach'd and on [facility] vent w ordered settings. Trach is secured and patent. Vent is plugged into red outlet w alarms set and audible. Pt is stable. No respiratory distress noted t/o shift. Addendum: 01/01/20 at 1754 by MIGUEL CAREY RT Amended: Links added.
[2020-01-01 20:55] VITALS: BP 150/88
[2020-01-01] MEDS: CLOTRIMAZOLE 1% 15 GM TUBE TP SCH (21:12)
[2020-01-01] MEDS: Z GUARD REMEDY 2 OZ OINT TP SCH ×2 (21:12)
[2020-01-01] MEDS: LATANOPROST EYE DROP 0.005% 2.5 ML BOTTLE EACHEYE SCH (21:13)
[2020-01-01] MEDS: TAMSULOSIN 0.4 MG CAP.SR.24H GT SCH (21:13)
[2020-01-02] MEDS: ALBUTEROL HALF STRENGTH 1.25 MG/3 ML VIAL.NEB NEB SCH ×4 (01:42→19:26)
[2020-01-02] MEDS: BLOOD SUGAR DIAGNOSTIC 1 EACH STRIP IN SCH ×3 (05:00→20:57)
[2020-01-02] MEDS: LEVOTHYROXINE SODIUM 50 MCG TABLET GT SCH (06:12)
[2020-01-02] MEDS: OMEPRAZOLE 20 MG CAPSULE.DR GT SCH (06:12)
[2020-01-02 07:55] VITALS: BP 95/77
[2020-01-02] MEDS: PROSOURCE / PROSTAT (PYXIS) 30 ML UDC GT SCH ×3 (08:00→17:47)
[2020-01-02] MEDS: HYDROGEN PEROXIDE 480 ML BOTTLE TP SCH ×2 (08:27→20:11)
[2020-01-02] MEDS: FUROSEMIDE 20 MG TABLET GT SCH ×2 (09:40→20:57)
[2020-01-02] MEDS: POTASSIUM CHLORIDE 20 MEQ POWDER PACKET GT SCH (09:40)
[2020-01-02] MEDS: APIXABAN 5 MG TABLET GT SCH ×2 (09:40→17:47)
[2020-01-02] MEDS: METFORMIN 500 MG TABLET PO SCH ×2 (09:40→17:47)
[2020-01-02] MEDS: SITAGLIPTIN PHOSPHATE 50 MG TABLET GT SCH (09:40)
[2020-01-02] MEDS: KEPPRA 500 MG GT SCH ×2 (09:40→20:57)
[2020-01-02] MEDS: SIROLIMUS 1 MG GT SCH (09:40)
[2020-01-02] MEDS: Z GUARD REMEDY 2 OZ OINT TP SCH ×4 (09:41→20:58)
[2020-01-02] MEDS: Z GUARD REMEDY 4 OZ OINT TP SCH ×4 (09:41→20:58)
[2020-01-02] MEDS: VITS A AND D/WHITE PET/LANOLIN 5 GM PACKET TP SCH ×2 (09:41→20:58)
[2020-01-02] MEDS: CLOTRIMAZOLE 1% 15 GM TUBE TP SCH ×2 (09:44→20:57)
--- NOTE | 2020-01-02 11:30 | NUR ---
Seen by Dr. Hood and reviewed lab result, no new order given.
[2020-01-02] MEDS: GLUCERNA 1.2 1,000 ML BOTTLE GT PRN (12:47)
[2020-01-02] MEDS: DIGOXIN ELIX UDC 0.25 MG/5 ML UDC GT SCH (13:00)
[2020-01-02] MEDS: INSULIN ASPART/LISPRO 100 UNIT/ML CARTRIDGE SQ PRN ×2 (13:02→21:00)
[2020-01-02 17:00] VITALS: BP 120/65
[2020-01-02 20:00] VITALS: BP 135/70
[2020-01-02] MEDS: TAMSULOSIN 0.4 MG CAP.SR.24H GT SCH (21:00)
[2020-01-02] MEDS: LATANOPROST EYE DROP 0.005% 2.5 ML BOTTLE EACHEYE SCH (21:00)
[2020-01-02] MEDS: ACETAMINOPHEN 650 MG/20 ML UDC- SA PATIENTS-PAIN ONLY GT PRN (22:25)
[2020-01-03] MEDS: ALBUTEROL HALF STRENGTH 1.25 MG/3 ML VIAL.NEB NEB SCH ×4 (01:34→20:02)
[2020-01-03] MEDS: LEVOTHYROXINE SODIUM 50 MCG TABLET GT SCH (05:09)
[2020-01-03] MEDS: OMEPRAZOLE 20 MG CAPSULE.DR GT SCH (05:09)
[2020-01-03] MEDS: BLOOD SUGAR DIAGNOSTIC 1 EACH STRIP IN SCH ×3 (05:09→21:50)
[2020-01-03] MEDS: INSULIN ASPART/LISPRO 100 UNIT/ML CARTRIDGE SQ PRN ×3 (05:10→21:51)
[2020-01-03] MEDS: GLUCERNA 1.2 1,000 ML BOTTLE GT PRN (05:52)
[2020-01-03 07:57] VITALS: BP 104/59
[2020-01-03] MEDS: PROSOURCE / PROSTAT (PYXIS) 30 ML UDC GT SCH ×3 (08:00→17:46)
[2020-01-03] MEDS: HYDROGEN PEROXIDE 480 ML BOTTLE TP SCH ×2 (08:31→21:19)
[2020-01-03] MEDS: CLOTRIMAZOLE 1% 15 GM TUBE TP SCH ×2 (09:00→21:44)
[2020-01-03] MEDS: POTASSIUM CHLORIDE 20 MEQ POWDER PACKET GT SCH (09:35)
[2020-01-03] MEDS: SITAGLIPTIN PHOSPHATE 50 MG TABLET GT SCH (09:35)
[2020-01-03] MEDS: APIXABAN 5 MG TABLET GT SCH ×2 (09:35→17:46)
[2020-01-03] MEDS: METFORMIN 500 MG TABLET PO SCH ×2 (09:35→17:47)
[2020-01-03] MEDS: SIROLIMUS 1 MG GT SCH (09:35)
[2020-01-03] MEDS: KEPPRA 500 MG GT SCH ×2 (09:35→21:44)
[2020-01-03] MEDS: Z GUARD REMEDY 2 OZ OINT TP SCH ×4 (09:35→21:45)
[2020-01-03] MEDS: FUROSEMIDE 20 MG TABLET GT SCH ×2 (09:35→21:44)
[2020-01-03] MEDS: Z GUARD REMEDY 4 OZ OINT TP SCH ×4 (09:36→21:45)
[2020-01-03] MEDS: VITS A AND D/WHITE PET/LANOLIN 5 GM PACKET TP SCH ×2 (09:36→21:45)
[2020-01-03] MEDS: DIGOXIN ELIX UDC 0.25 MG/5 ML UDC GT SCH (12:50)
[2020-01-03] MEDS: ACETAMINOPHEN 650 MG/20 ML UDC- SA PATIENTS-PAIN ONLY GT PRN (17:00)
[2020-01-03 19:52] VITALS: BP 143/76
--- NOTE | 2020-01-03 20:02 | NUR ---
PT RCVD TRACH'D ON MECHANICAL VENT WITH NOTED SETTINGS. BREATHING TX GIVEN . NO ADVERSE REACTION NOTED . SX DONE. PT TRACH IS PATENT AND SECURE. VENT ALARMS ARE ON, SET, AND AUDIBLE. VENT PLUGGED INTO RED OUTLET. AMBU BAG AT BEDSIDE. NO SOB NOTED. WILL CONTINUE TO MONITOR THE PT T
[2020-01-03] MEDS: LATANOPROST EYE DROP 0.005% 2.5 ML BOTTLE EACHEYE SCH (21:45)
[2020-01-03] MEDS: TAMSULOSIN 0.4 MG CAP.SR.24H GT SCH (21:45)
[2020-01-04] MEDS: ALBUTEROL HALF STRENGTH 1.25 MG/3 ML VIAL.NEB NEB SCH ×4 (00:42→20:05)
[2020-01-04] MEDS: GLUCERNA 1.2 1,000 ML BOTTLE GT PRN ×2 (01:23→18:53)
[2020-01-04] MEDS: SIMETHICONE 80 MG TAB.CHEW GT PRN (01:55)
[2020-01-04] MEDS: OMEPRAZOLE 20 MG CAPSULE.DR GT SCH (05:25)
[2020-01-04] MEDS: LEVOTHYROXINE SODIUM 50 MCG TABLET GT SCH (05:25)
[2020-01-04] MEDS: BLOOD SUGAR DIAGNOSTIC 1 EACH STRIP IN SCH ×3 (05:25→21:00)
[2020-01-04] MEDS: INSULIN ASPART/LISPRO 100 UNIT/ML CARTRIDGE SQ PRN ×3 (05:26→22:39)
[2020-01-04 07:51] VITALS: BP 92/60
[2020-01-04] MEDS: PROSOURCE / PROSTAT (PYXIS) 30 ML UDC GT SCH ×3 (08:00→17:53)
[2020-01-04] MEDS: HYDROGEN PEROXIDE 480 ML BOTTLE TP SCH ×2 (09:00→21:00)
--- NOTE | 2020-01-04 09:40 | NUR ---
Notified Dr. Hood that resident has been running low grade temperature in the past few days, with temperature of 99.8 yesterday. Resident not in respiratory distress. New order given for labs, BC, chest X-ray, sputum and urine culture. Orders carried out. Resident's son Dakota informed.
[2020-01-04] MEDS: Z GUARD REMEDY 4 OZ OINT TP SCH ×4 (09:49→21:00)
[2020-01-04] MEDS: POTASSIUM CHLORIDE 20 MEQ POWDER PACKET GT SCH (09:49)
[2020-01-04] MEDS: VITS A AND D/WHITE PET/LANOLIN 5 GM PACKET TP SCH ×2 (09:49→21:00)
[2020-01-04] MEDS: FUROSEMIDE 20 MG TABLET GT SCH ×2 (09:49→21:00)
[2020-01-04] MEDS: KEPPRA 500 MG GT SCH ×2 (09:49→21:00)
[2020-01-04] MEDS: CLOTRIMAZOLE 1% 15 GM TUBE TP SCH ×2 (09:49→21:00)
[2020-01-04] MEDS: Z GUARD REMEDY 2 OZ OINT TP SCH ×4 (09:49→21:00)
[2020-01-04] MEDS: APIXABAN 5 MG TABLET GT SCH ×2 (09:49→17:53)
[2020-01-04] MEDS: SIROLIMUS 1 MG GT SCH (09:49)
[2020-01-04] MEDS: SITAGLIPTIN PHOSPHATE 50 MG TABLET GT SCH (09:49)
[2020-01-04] MEDS: METFORMIN 500 MG TABLET PO SCH ×2 (09:49→17:53)
[2020-01-04 10:27] LABS: BASOPHILS % (AUTO) 0.3 % (0.0-2.0); EOSINOPHILS % (AUTO) 2.4 % (0.0-6.0); HEMATOCRIT 32 % (39-51); HEMOGLOBIN 10.2 g/dL (13.5-17.5); LYMPHOCYTES # (AUTO) 1.1 /CMM (0.8-4.8); LYMPHOCYTES % (AUTO) 14.7 % (20.0-44.0); MEAN CORPUSCULAR HGB CONC 32 g/dl (31.0-36.0); MEAN CORPUSCULAR VOLUME 95 fL (80-96); MONOCYTES # (AUTO) 0.8 /CMM (0.1-1.30); MONOCYTES % (AUTO) 9.9 % (2.0-12.0); NEUTROPHILS # (AUTO) 5.5 /CMM (1.8-8.9); NEUTROPHILS % (AUTO) 72.7 % (43.0-81.0); PLATELET COUNT (AUTO) 261 /CMM (150-450); RED BLOOD CELL COUNT(AUTO) 3.35 MIL/uL (4.5-6.0); WHITE BLOOD COUNT (AUTO) 7.6 K/uL (4.3-11.0)
[2020-01-04 10:39] LABS: ALBUMIN 2.9 g/dL (3.4-5.0); BILIRUBIN,TOTAL 0.6 mg/dL (0.2-1.0); CREATININE 1.1 mg/dL (0.6-1.3); MAGNESIUM 2.1 mg/dL (1.8-2.4); PHOSPHORUS 3.9 mg/dL (2.5-4.9); POTASSIUM 4.1 mmol/L (3.5-5.1); TOTAL PROTEIN, SERUM 7.4 g/dL (6.4-8.2)
[2020-01-04 12:36] LABS: BLOOD, URINE NEGATIVE Ery/uL (NEGATIVE); COLOR,URINE YELLOW (YELLOW); LEUKOCYTE ESTERASE ,URINE NEGATIVE (NEGATIVE); NITRITE, URINE NEGATIVE (NEGATIVE); UROBILINOGEN,URINE 0.2 EU/dL (0.2)
[2020-01-04] MEDS: DIGOXIN ELIX UDC 0.25 MG/5 ML UDC GT SCH (12:51)
[2020-01-04] MEDS: ACETAMINOPHEN 650 MG/20 ML UDC- SA PATIENTS-PAIN ONLY GT PRN (18:23)
[2020-01-04 20:07] VITALS: BP 118/70
[2020-01-04] MEDS: LATANOPROST EYE DROP 0.005% 2.5 ML BOTTLE EACHEYE SCH (22:00)
[2020-01-04] MEDS: TAMSULOSIN 0.4 MG CAP.SR.24H GT SCH (22:23)
--- NOTE | 2020-01-04 22:43 | NUR ---
patient refused eye drop medication. primary nurse encourage patient but he shut his eyes.
[2020-01-05 00:40] LABS: APPEARANCE,URINE CLEAR (CLEAR); BILIRUBIN,URINE SMALL (NEGATIVE); KETONES,URINE 40 (NEGATIVE); PH,URINE 5.5 (5.0-8.0); PROTEIN,URINE TRACE mg/dl (NEGATIVE); UGLUCOSE 500 MG/DL mg/dL (NEGATIVE)
[2020-01-05] MEDS: ALBUTEROL HALF STRENGTH 1.25 MG/3 ML VIAL.NEB NEB SCH ×4 (00:41→19:30)
--- NOTE | 2020-01-05 04:24 | NUR ---
checked patient's temperature 98.7 axillary. will cont. to monitor
[2020-01-05] MEDS: BLOOD SUGAR DIAGNOSTIC 1 EACH STRIP IN SCH ×3 (05:00→21:31)
[2020-01-05] MEDS: LEVOTHYROXINE SODIUM 50 MCG TABLET GT SCH (06:06)
[2020-01-05] MEDS: INSULIN ASPART/LISPRO 100 UNIT/ML CARTRIDGE SQ PRN ×3 (06:06→21:33)
[2020-01-05] MEDS: OMEPRAZOLE 20 MG CAPSULE.DR GT SCH (06:06)
[2020-01-05 07:19] LABS: BASOPHILS % (AUTO) 0.3 % (0.0-2.0); EOSINOPHILS % (AUTO) 1.3 % (0.0-6.0); HEMATOCRIT 31 % (39-51); HEMOGLOBIN 9.9 g/dL (13.5-17.5); LYMPHOCYTES % (AUTO) 8.8 % (20.0-44.0); MEAN CORPUSCULAR HGB CONC 32 g/dl (31.0-36.0); MEAN CORPUSCULAR VOLUME 95 fL (80-96); MONOCYTES # (AUTO) 0.9 /CMM (0.1-1.30); MONOCYTES % (AUTO) 7.7 % (2.0-12.0); NEUTROPHILS # (AUTO) 9.3 /CMM (1.8-8.9); NEUTROPHILS % (AUTO) 81.9 % (43.0-81.0); PLATELET COUNT (AUTO) 249 /CMM (150-450); RED BLOOD CELL COUNT(AUTO) 3.26 MIL/uL (4.5-6.0); WHITE BLOOD COUNT (AUTO) 11.3 K/uL (4.3-11.0)
[2020-01-05 07:27] LABS: BILIRUBIN,TOTAL 0.6 mg/dL (0.2-1.0); CALCIUM, SERUM 10.2 mg/dL (8.5-10.1); CREATININE 1.1 mg/dL (0.6-1.3); MAGNESIUM 2.1 mg/dL (1.8-2.4); PHOSPHORUS 3.6 mg/dL (2.5-4.9); TOTAL PROTEIN, SERUM 7.5 g/dL (6.4-8.2)
[2020-01-05 07:35] VITALS: BP 106/67
[2020-01-05] MEDS: PROSOURCE / PROSTAT (PYXIS) 30 ML UDC GT SCH ×3 (08:00→16:34)
--- NOTE | 2020-01-05 08:13 | NUR ---
PT REC'D TRACH'D ON MECHANICAL VENT WITH CHARTED SETTINGS. VENT ALARMS ARE ON, SET, AND AUDIBLE. VENT PLUGGED INTO RED OUTLET. AMBU BAG AT BEDSIDE. NO SOB NOTED AT THIS TIME. WILL MONITOR T/O SHIFT. Addendum: 01/05/20 at 0814 by DEVANG BENNETT RT Amended: Links added.
[2020-01-05] MEDS: SITAGLIPTIN PHOSPHATE 50 MG TABLET GT SCH (09:00)
[2020-01-05] MEDS: KEPPRA 500 MG GT SCH ×2 (09:00→21:31)
[2020-01-05] MEDS: VITS A AND D/WHITE PET/LANOLIN 5 GM PACKET TP SCH ×2 (09:00→21:32)
[2020-01-05] MEDS: POTASSIUM CHLORIDE 20 MEQ POWDER PACKET GT SCH (09:00)
[2020-01-05] MEDS: METFORMIN 500 MG TABLET PO SCH ×2 (09:00→16:34)
[2020-01-05] MEDS: SIROLIMUS 1 MG GT SCH (09:00)
[2020-01-05] MEDS: Z GUARD REMEDY 4 OZ OINT TP SCH ×4 (09:00→21:32)
[2020-01-05] MEDS: APIXABAN 5 MG TABLET GT SCH ×2 (09:00→16:33)
[2020-01-05] MEDS: FUROSEMIDE 20 MG TABLET GT SCH ×2 (09:00→21:31)
[2020-01-05] MEDS: Z GUARD REMEDY 2 OZ OINT TP SCH ×4 (09:00→21:32)
[2020-01-05] MEDS: HYDROGEN PEROXIDE 480 ML BOTTLE TP SCH ×2 (09:00→21:00)
[2020-01-05] MEDS: CLOTRIMAZOLE 1% 15 GM TUBE TP SCH ×2 (09:00→21:31)
[2020-01-05] MEDS: DIGOXIN ELIX UDC 0.25 MG/5 ML UDC GT SCH (13:00)
--- NOTE | 2020-01-05 15:00 | NUR ---
Seen by Laura Ocampo, RN ADMISSION reported that patient's WBC increased to 11.3, patient's BC pending and rapid influenza test negative. No new order given at this time. Resident afebrile at 98.0
[2020-01-05] MEDS: GLUCERNA 1.2 1,000 ML BOTTLE GT PRN (15:24)
[2020-01-05 20:04] VITALS: BP 139/101
[2020-01-05] MEDS: TAMSULOSIN 0.4 MG CAP.SR.24H GT SCH (21:32)
[2020-01-05] MEDS: LATANOPROST EYE DROP 0.005% 2.5 ML BOTTLE EACHEYE SCH (21:32)
[2020-01-06] MEDS: ALBUTEROL HALF STRENGTH 1.25 MG/3 ML VIAL.NEB NEB SCH ×4 (01:30→19:29)
[2020-01-06] MEDS: BLOOD SUGAR DIAGNOSTIC 1 EACH STRIP IN SCH ×3 (05:59→21:15)
[2020-01-06] MEDS: OMEPRAZOLE 20 MG CAPSULE.DR GT SCH (05:59)
[2020-01-06] MEDS: LEVOTHYROXINE SODIUM 50 MCG TABLET GT SCH (05:59)
[2020-01-06] MEDS: INSULIN ASPART/LISPRO 100 UNIT/ML CARTRIDGE SQ PRN ×2 (06:00→12:46)
--- NOTE | 2020-01-06 06:52 | NUR ---
Low grade fever noted. Cooling measures rendered. No discomfort noted. 0 SOB Noted. Kept clean dry and comfortable. Will continue to monitor. Will endorsed to am nurse.
[2020-01-06 07:33] VITALS: BP 123/65
[2020-01-06] MEDS: PROSOURCE / PROSTAT (PYXIS) 30 ML UDC GT SCH ×3 (08:00→17:41)
[2020-01-06] MEDS: HYDROGEN PEROXIDE 480 ML BOTTLE TP SCH ×2 (09:00→21:20)
[2020-01-06] MEDS: Z GUARD REMEDY 2 OZ OINT TP SCH ×4 (09:00→21:16)
[2020-01-06] MEDS: POTASSIUM CHLORIDE 20 MEQ POWDER PACKET GT SCH (09:00)
[2020-01-06] MEDS: SIROLIMUS 1 MG GT SCH (09:00)
[2020-01-06] MEDS: SITAGLIPTIN PHOSPHATE 50 MG TABLET GT SCH (09:00)
[2020-01-06] MEDS: KEPPRA 500 MG GT SCH ×2 (09:00→21:15)
[2020-01-06] MEDS: VITS A AND D/WHITE PET/LANOLIN 5 GM PACKET TP SCH ×2 (09:00→21:16)
[2020-01-06] MEDS: APIXABAN 5 MG TABLET GT SCH ×2 (09:00→17:41)
[2020-01-06] MEDS: FUROSEMIDE 20 MG TABLET GT SCH ×2 (09:00→21:15)
[2020-01-06] MEDS: Z GUARD REMEDY 4 OZ OINT TP SCH ×4 (09:00→21:16)
[2020-01-06] MEDS: METFORMIN 500 MG TABLET PO SCH ×2 (09:00→17:41)
[2020-01-06] MEDS: CLOTRIMAZOLE 1% 15 GM TUBE TP SCH ×2 (09:00→21:15)
[2020-01-06] MEDS: GLUCERNA 1.2 1,000 ML BOTTLE GT PRN (10:16)
[2020-01-06] MEDS ORDERED: VANCOMYCIN 0.75 GM in IV D5W 250 ML IV ONE (11:00)
[2020-01-06] MEDS: DIGOXIN ELIX UDC 0.25 MG/5 ML UDC GT SCH (12:43)
--- NOTE | 2020-01-06 13:10 | NUR ---
Seen and examined by Laura Ocampo, WRECKING CAR DRIVER, informed about on and off elevated temp. with new orders and carried out. STAT Blood culture x 2, procalcitonin, lactic acid, UA and culture, sputum culture- done. CBC, BMP, CXR in AM- requested. Vancomycin IV, pharmacy to dose x 7 days. Meropenem 1 gram IV x 7 days. Will continue to monitor.
--- NOTE | 2020-01-06 14:00 | NUR ---
Trevon Albrecht informed regarding new orders, appreciated the call. He is requesting to talk to ID to discuss current ATB treatment, informed LENKA Sanchez she said she will call him.
[2020-01-06] MEDS ORDERED: FEE PK DOSING 1 MIN EA MC ONE (16:21)
--- NOTE | 2020-01-06 16:30 | NUR ---
Per [facility] pharmacist said that Vancomycin IV is not covered by insurance. SO will provide. Meropenem IV is covered, [facility] will provide.
[2020-01-06] MEDS ORDERED: VANCOMYCIN 1 GM in IV D5W 250 ML IV SCH (17:00)
[2020-01-06] MEDS ORDERED: VANCOMYCIN 1 GM in IV D5W 250 ML IV ONE (17:21)
[2020-01-06] MEDS: MEROPENEM 1 G in IV NS 0.9% 100 ML IV SCH (18:00)
--- NOTE | 2020-01-06 18:00 | NUR ---
Lactic acid result relayed to LENKA Sanchez, with new order to repeat lactic acid in AM.
[2020-01-06 18:24] LABS: CALCIUM, SERUM 9.6 mg/dL (8.5-10.1); CARBON DIOXIDE 29 mmol/L (21-32); CHLORIDE 96 mmol/L (98-107); CREATININE 1.2 mg/dL (0.6-1.3); GLUCOSE 248 mg/dL (74-106); POTASSIUM 4.2 mmol/L (3.5-5.1); SODIUM SERUM 136 mmol/L (136-145); UREA NITROGEN, BLOOD 32 mg/dL (7-18)
--- NOTE | 2020-01-06 18:46 | NUR ---
pt monitored for low grade temperature. at 1830 pt noted with 99.8. cooling measures done. reported to charge nurse. will continue to monitor any untoward changes. endorsed.
--- NOTE | 2020-01-06 20:00 | NUR ---
RN NOTES Pt in stable condition. No resp distress noted. Temp decreased to 98.6. Will continue to monitor.
[2020-01-06 20:05] VITALS: BP 113/65
[2020-01-06 20:39] LABS: BILIRUBIN,DIRECT 0.3 mg/dL (0.0-0.2)
[2020-01-06] MEDS: TAMSULOSIN 0.4 MG CAP.SR.24H GT SCH (21:16)
[2020-01-06] MEDS: LATANOPROST EYE DROP 0.005% 2.5 ML BOTTLE EACHEYE SCH (21:16)
[2020-01-06 22:14] LABS: APPEARANCE,URINE SL CLOUDY (CLEAR); BILIRUBIN,URINE NEGATIVE (NEGATIVE); BLOOD, URINE NEGATIVE Ery/uL (NEGATIVE); COLOR,URINE YELLOW (YELLOW); KETONES,URINE NEGATIVE (NEGATIVE); LEUKOCYTE ESTERASE ,URINE NEGATIVE (NEGATIVE); NITRITE, URINE POSITIVE (NEGATIVE); PROTEIN,URINE 30 mg/dl (NEGATIVE); UGLUCOSE 250 MG/DL mg/dL (NEGATIVE); UROBILINOGEN,URINE 0.2 EU/dL (0.2)
[2020-01-06 22:24] LABS: BACTERIA,URINE Moderate /HPF (None Seen); RBC,URINE 0-2 /HPF (0-2); SQUAMOUS EPITHELIAL CELL,UR Few /HPF (None Seen); WBC,URINE 0-2 /HPF (0-3)
[2020-01-07] MEDS: ALBUTEROL HALF STRENGTH 1.25 MG/3 ML VIAL.NEB NEB SCH ×4 (01:32→19:16)
[2020-01-07] MEDS: BLOOD SUGAR DIAGNOSTIC 1 EACH STRIP IN SCH ×3 (05:00→21:00)
[2020-01-07] MEDS: MEROPENEM 1 G in IV NS 0.9% 100 ML IV SCH ×2 (06:00→18:29)
[2020-01-07] MEDS: OMEPRAZOLE 20 MG CAPSULE.DR GT SCH (06:07)
[2020-01-07] MEDS: LEVOTHYROXINE SODIUM 50 MCG TABLET GT SCH (06:07)
[2020-01-07] MEDS: INSULIN ASPART/LISPRO 100 UNIT/ML CARTRIDGE SQ PRN ×3 (06:08→21:02)
[2020-01-07 06:48] LABS: BASOPHILS # (AUTO) 0.1 /CMM (0.0-0.2); BASOPHILS % (AUTO) 0.6 % (0.0-2.0); EOSINOPHILS % (AUTO) 1.6 % (0.0-6.0); HEMATOCRIT 30 % (39-51); HEMOGLOBIN 9.7 g/dL (13.5-17.5); LYMPHOCYTES % (AUTO) 10.3 % (20.0-44.0); MEAN CORPUSCULAR HGB CONC 32 g/dl (31.0-36.0); MEAN CORPUSCULAR VOLUME 94 fL (80-96); MONOCYTES % (AUTO) 10.1 % (2.0-12.0); NEUTROPHILS # (AUTO) 7.6 /CMM (1.8-8.9); NEUTROPHILS % (AUTO) 77.4 % (43.0-81.0); PLATELET COUNT (AUTO) 229 /CMM (150-450); WHITE BLOOD COUNT (AUTO) 9.8 K/uL (4.3-11.0)
[2020-01-07 07:05] LABS: CALCIUM, SERUM 9.5 mg/dL (8.5-10.1); CREATININE 1.2 mg/dL (0.6-1.3)
--- NOTE | 2020-01-07 07:21 | NUR ---
RT NOTE PER CHARGE NURSE IRENE NO VENT WEENING TO BE PERFORMED AT THIS TIME.
[2020-01-07 07:52] VITALS: BP 102/72
[2020-01-07] MEDS: PROSOURCE / PROSTAT (PYXIS) 30 ML UDC GT SCH ×3 (08:00→16:46)
[2020-01-07] MEDS: HYDROGEN PEROXIDE 480 ML BOTTLE TP SCH ×2 (08:10→20:42)
--- NOTE | 2020-01-07 08:33 | NUR ---
PT RCVD TRACH'D ON MECHANICAL VENT WITH CHARTED SETTINGS. PT DEONDRE TX WELL. SX DONE. PT TRACH IS PATENT AND SECURE. VENT ALARMS ARE ON, SET, AND AUDIBLE. VENT PLUGGED INTO RED OUTLET. AMBU BAG AT BEDSIDE. NO SOB NOTED. Addendum: 01/07/20 at 0834 by MARI GARCIA RT Amended: Links added.
--- NOTE | 2020-01-07 09:20 | NUR ---
Notified Dr Alicea that pt had a temp of 100.8 F yesterday, T 99. F today. Pt on antibiotics. Dr Alicea ordered to SERG vent weaning and ABG.
[2020-01-07] MEDS: FUROSEMIDE 20 MG TABLET GT SCH ×2 (09:52→21:00)
[2020-01-07] MEDS: METFORMIN 500 MG TABLET PO SCH ×2 (09:52→16:46)
[2020-01-07] MEDS: SIROLIMUS 1 MG GT SCH (09:52)
[2020-01-07] MEDS: POTASSIUM CHLORIDE 20 MEQ POWDER PACKET GT SCH (09:52)
[2020-01-07] MEDS: KEPPRA 500 MG GT SCH ×2 (09:52→21:00)
[2020-01-07] MEDS: APIXABAN 5 MG TABLET GT SCH ×2 (09:52→16:46)
[2020-01-07] MEDS: SITAGLIPTIN PHOSPHATE 50 MG TABLET GT SCH (09:52)
[2020-01-07] MEDS: CLOTRIMAZOLE 1% 15 GM TUBE TP SCH ×2 (09:53→21:00)
[2020-01-07] MEDS: VITS A AND D/WHITE PET/LANOLIN 5 GM PACKET TP SCH ×2 (09:54→21:01)
[2020-01-07] MEDS: Z GUARD REMEDY 4 OZ OINT TP SCH ×4 (09:54→21:01)
[2020-01-07] MEDS: Z GUARD REMEDY 2 OZ OINT TP SCH ×4 (09:54→21:00)
--- NOTE | 2020-01-07 10:29 | NUR ---
Seen by LENKA Taylor. She is aware of lab results. Relayed lactic acid 2.[address] Hood.
[2020-01-07] MEDS: VANCOMYCIN 0.75 GM in IV D5W 250 ML IV SCH (11:00)
[2020-01-07] MEDS: DIGOXIN ELIX UDC 0.25 MG/5 ML UDC GT SCH (13:38)
[2020-01-07 19:52] VITALS: BP 120/76
[2020-01-07] MEDS: TAMSULOSIN 0.4 MG CAP.SR.24H GT SCH (21:01)
[2020-01-07] MEDS: LATANOPROST EYE DROP 0.005% 2.5 ML BOTTLE EACHEYE SCH (21:01)
[2020-01-08] MEDS: ALBUTEROL HALF STRENGTH 1.25 MG/3 ML VIAL.NEB NEB SCH ×4 (01:52→20:06)
[2020-01-08] MEDS: VANCOMYCIN 0.75 GM in IV D5W 250 ML IV SCH ×2 (05:00→23:00)
[2020-01-08] MEDS: BLOOD SUGAR DIAGNOSTIC 1 EACH STRIP IN SCH ×3 (05:43→21:07)
[2020-01-08] MEDS: LEVOTHYROXINE SODIUM 50 MCG TABLET GT SCH (05:43)
[2020-01-08] MEDS: OMEPRAZOLE 20 MG CAPSULE.DR GT SCH (05:43)
[2020-01-08] MEDS: INSULIN ASPART/LISPRO 100 UNIT/ML CARTRIDGE SQ PRN ×2 (05:44→12:48)
[2020-01-08] MEDS: MEROPENEM 1 G in IV NS 0.9% 100 ML IV SCH ×2 (06:00→17:51)
[2020-01-08 07:28] VITALS: BP 122/73
[2020-01-08 08:00] LABS: CALCIUM, SERUM 9.9 mg/dL (8.5-10.1); CREATININE 1.2 mg/dL (0.6-1.3)
[2020-01-08] MEDS: PROSOURCE / PROSTAT (PYXIS) 30 ML UDC GT SCH ×3 (08:33→16:34)
[2020-01-08] MEDS: APIXABAN 5 MG TABLET GT SCH ×2 (08:34→16:34)
[2020-01-08] MEDS: POTASSIUM CHLORIDE 20 MEQ POWDER PACKET GT SCH (08:34)
[2020-01-08] MEDS: CLOTRIMAZOLE 1% 15 GM TUBE TP SCH ×2 (08:34→21:07)
[2020-01-08] MEDS: SIROLIMUS 1 MG GT SCH (08:34)
[2020-01-08] MEDS: METFORMIN 500 MG TABLET PO SCH ×2 (08:34→16:34)
[2020-01-08] MEDS: KEPPRA 500 MG GT SCH ×2 (08:34→21:07)
[2020-01-08] MEDS: SITAGLIPTIN PHOSPHATE 50 MG TABLET GT SCH (08:34)
[2020-01-08] MEDS: FUROSEMIDE 20 MG TABLET GT SCH ×2 (08:34→21:07)
[2020-01-08] MEDS: Z GUARD REMEDY 4 OZ OINT TP SCH ×4 (08:35→21:07)
[2020-01-08] MEDS: Z GUARD REMEDY 2 OZ OINT TP SCH ×4 (08:35→21:07)
[2020-01-08] MEDS: VITS A AND D/WHITE PET/LANOLIN 5 GM PACKET TP SCH ×2 (08:35→21:07)
[2020-01-08] MEDS: HYDROGEN PEROXIDE 480 ML BOTTLE TP SCH ×2 (09:00→21:00)
--- NOTE | 2020-01-08 11:59 | NUR ---
Family Invite to IDT:This SW called the patient's brother, Trevon [phone] to invite him to participate in IDT meeting taking place 01/11/2020 between 12:30 pm and 1:30 pm via phone conference as a safety measure due to Coronavirus. Per Trevon, he would like to participate via phone conference and requested to be called first. Noted.
[2020-01-08] MEDS: DIGOXIN ELIX UDC 0.25 MG/5 ML UDC GT SCH (12:47)
[2020-01-08] MEDS: GLUCERNA 1.2 1,000 ML BOTTLE GT PRN (17:06)
--- NOTE | 2020-01-08 18:47 | NUR ---
Seen by LENKA Taylor. She is aware of culture results. Received order to DC Vancomycin. Notified Trevon.
[2020-01-08 20:09] VITALS: BP 124/62
[2020-01-08] MEDS: LATANOPROST EYE DROP 0.005% 2.5 ML BOTTLE EACHEYE SCH (21:07)
[2020-01-08] MEDS: TAMSULOSIN 0.4 MG CAP.SR.24H GT SCH (21:08)
--- NOTE | 2020-01-08 23:25 | NUR ---
RT NOTE Pt rec'd trached on [facility] vent on AC mode. Pt shows no signs of resp distress or sob. Trach is patent and secured. Pt sx'd for thick mod amt of pale yellow secretions. Alarms are set and audible. Vent plugged into red outlet. Ambu bag bedside. Will continue to monitor. Addendum: 01/08/20 at 2497 by RENATE CHAVEZ RT Amended: Links added.
[2020-01-09] MEDS: ALBUTEROL HALF STRENGTH 1.25 MG/3 ML VIAL.NEB NEB SCH ×4 (02:27→19:59)
[2020-01-09] MEDS: LEVOTHYROXINE SODIUM 50 MCG TABLET GT SCH (05:51)
[2020-01-09] MEDS: BLOOD SUGAR DIAGNOSTIC 1 EACH STRIP IN SCH ×3 (05:51→21:11)
[2020-01-09] MEDS: OMEPRAZOLE 20 MG CAPSULE.DR GT SCH (05:51)
[2020-01-09] MEDS: INSULIN ASPART/LISPRO 100 UNIT/ML CARTRIDGE SQ PRN ×3 (05:53→21:14)
[2020-01-09] MEDS: MEROPENEM 1 G in IV NS 0.9% 100 ML IV SCH ×2 (06:47→18:45)
[2020-01-09 07:20] LABS: BASOPHILS % (AUTO) 0.2 % (0.0-2.0); EOSINOPHILS % (AUTO) 3.1 % (0.0-6.0); HEMATOCRIT 31 % (39-51); HEMOGLOBIN 10.1 g/dL (13.5-17.5); LYMPHOCYTES # (AUTO) 0.8 /CMM (0.8-4.8); LYMPHOCYTES % (AUTO) 14.4 % (20.0-44.0); MEAN CORPUSCULAR HGB CONC 32 g/dl (31.0-36.0); MEAN CORPUSCULAR VOLUME 94 fL (80-96); MONOCYTES # (AUTO) 0.8 /CMM (0.1-1.30); MONOCYTES % (AUTO) 14.4 % (2.0-12.0); NEUTROPHILS # (AUTO) 3.8 /CMM (1.8-8.9); NEUTROPHILS % (AUTO) 67.9 % (43.0-81.0); PLATELET COUNT (AUTO) 240 /CMM (150-450); RED BLOOD CELL COUNT(AUTO) 3.35 MIL/uL (4.5-6.0); WHITE BLOOD COUNT (AUTO) 5.5 K/uL (4.3-11.0)
[2020-01-09 07:24] LABS: CALCIUM, SERUM 9.7 mg/dL (8.5-10.1); CREATININE 1.1 mg/dL (0.6-1.3); POTASSIUM 3.8 mmol/L (3.5-5.1)
[2020-01-09 07:44] VITALS: BP 123/70
[2020-01-09 07:46] LABS: BAND % (MANUAL) 2 % (0.0-5.0); EOSINOPHILS % (MANUAL) 2 % (0-4); LYMPHOCYTES % (MANUAL) 7 % (16-48); MONOCYTES % (MANUAL) 14 % (0-11.0); NEUTROPHILS % (MANUAL) 75 (42-76)
[2020-01-09] MEDS: PROSOURCE / PROSTAT (PYXIS) 30 ML UDC GT SCH ×3 (08:33→17:38)
[2020-01-09] MEDS: KEPPRA 500 MG GT SCH ×2 (08:34→21:11)
[2020-01-09] MEDS: APIXABAN 5 MG TABLET GT SCH ×2 (08:34→17:38)
[2020-01-09] MEDS: FUROSEMIDE 20 MG TABLET GT SCH (08:36)
[2020-01-09] MEDS: POTASSIUM CHLORIDE 20 MEQ POWDER PACKET GT SCH (08:36)
[2020-01-09] MEDS: SITAGLIPTIN PHOSPHATE 50 MG TABLET GT SCH (08:36)
[2020-01-09] MEDS: METFORMIN 500 MG TABLET PO SCH (08:37)
[2020-01-09] MEDS: SIROLIMUS 1 MG GT SCH (08:44)
[2020-01-09] MEDS: HYDROGEN PEROXIDE 480 ML BOTTLE TP SCH ×2 (08:45→21:52)
[2020-01-09] MEDS: CLOTRIMAZOLE 1% 15 GM TUBE TP SCH ×2 (09:00→21:12)
[2020-01-09] MEDS: VITS A AND D/WHITE PET/LANOLIN 5 GM PACKET TP SCH ×2 (09:00→21:12)
[2020-01-09] MEDS: Z GUARD REMEDY 2 OZ OINT TP SCH ×4 (09:00→21:12)
[2020-01-09] MEDS: Z GUARD REMEDY 4 OZ OINT TP SCH ×4 (09:00→21:12)
[2020-01-09] MEDS: DIGOXIN ELIX UDC 0.25 MG/5 ML UDC GT SCH (12:20)
--- NOTE | 2020-01-09 14:15 | NUR ---
Family invitation to video chat with patient: This SW called the patient's Son, Trevon Albrecht [phone] to let him know that the video chat option is now an alternative option for family/patient interaction since the coronavirus visitation restriction was implemented recently. Per Trevon, [facility] is [facility] on 01/14/2020 at 2 pm. SW will facilitate video chat between family and patient as needed.
[2020-01-09 15:10] LABS: BILIRUBIN,DIRECT 0.2 mg/dL (0.0-0.2); BILIRUBIN,TOTAL 0.6 mg/dL (0.2-1.0)
--- NOTE | 2020-01-09 16:30 | NUR ---
Seen and examined by Laura Ocampo NP and made aware of the elevated lactic acid, with order to ask micro to release the result of urine culture. Called [facility] lab to follow-up but according to Deangelo no one is answering from [facility] laboratory, where culture are done. Endorsed to follow-up in AM.
--- NOTE | 2020-01-09 17:21 | NUR ---
Noted an electronic order from Dr. Mak for CBC, BMP, Mg, Phos and Lactic Acid in AM. Orders noted and carried out. Dr. Mak also discontinue Lasix, K+ supplement and Metformin/ GT due to Lactic Acidemia. Resident's son Dakota informed of new orders due to elevated lactic acid level.
[2020-01-09] MEDS: GLUCERNA 1.2 1,000 ML BOTTLE GT PRN (19:09)
[2020-01-09 20:09] VITALS: BP 112/62
--- NOTE | 2020-01-09 20:28 | NUR ---
RT NOTE PT RCKENNEDY'D ON MECHANICAL VENT WITH MD ORDERED SETTINGS. VENT PLUGGED INTO RED OUTLET. AMBU BAG/ BACKUP TRACH AT BEDSIDE. NO SOB NOTED AT THIS TIME. WILL CONTINUE TO MONITOR CLOSELY Addendum: 01/09/20 at 2027 by MATHEW RICHARDS RT Amended: Links added.
[2020-01-09] MEDS: TAMSULOSIN 0.4 MG CAP.SR.24H GT SCH (21:12)
[2020-01-09] MEDS: LATANOPROST EYE DROP 0.005% 2.5 ML BOTTLE EACHEYE SCH (21:12)
[2020-01-10] MEDS: ALBUTEROL HALF STRENGTH 1.25 MG/3 ML VIAL.NEB NEB SCH ×4 (01:17→19:42)
[2020-01-10] MEDS: OMEPRAZOLE 20 MG CAPSULE.DR GT SCH (05:27)
[2020-01-10] MEDS: LEVOTHYROXINE SODIUM 50 MCG TABLET GT SCH (05:27)
[2020-01-10] MEDS: BLOOD SUGAR DIAGNOSTIC 1 EACH STRIP IN SCH ×3 (05:27→20:45)
[2020-01-10] MEDS: INSULIN ASPART/LISPRO 100 UNIT/ML CARTRIDGE SQ PRN ×3 (05:28→20:47)
[2020-01-10] MEDS: MEROPENEM 1 G in IV NS 0.9% 100 ML IV SCH ×2 (06:13→18:14)
[2020-01-10 06:35] LABS: BASOPHILS % (AUTO) 0.4 % (0.0-2.0); EOSINOPHILS % (AUTO) 2.5 % (0.0-6.0); HEMATOCRIT 30 % (39-51); HEMOGLOBIN 9.7 g/dL (13.5-17.5); LYMPHOCYTES # (AUTO) 0.8 /CMM (0.8-4.8); LYMPHOCYTES % (AUTO) 16.1 % (20.0-44.0); MEAN CORPUSCULAR HGB CONC 33 g/dl (31.0-36.0); MEAN CORPUSCULAR VOLUME 93 fL (80-96); MONOCYTES # (AUTO) 0.7 /CMM (0.1-1.30); MONOCYTES % (AUTO) 13.8 % (2.0-12.0); NEUTROPHILS # (AUTO) 3.5 /CMM (1.8-8.9); NEUTROPHILS % (AUTO) 67.2 % (43.0-81.0); PLATELET COUNT (AUTO) 233 /CMM (150-450); RED BLOOD CELL COUNT(AUTO) 3.18 MIL/uL (4.5-6.0); WHITE BLOOD COUNT (AUTO) 5.2 K/uL (4.3-11.0)
[2020-01-10 06:54] LABS: CALCIUM, SERUM 9.6 mg/dL (8.5-10.1); CARBON DIOXIDE 32 mmol/L (21-32); CHLORIDE 98 mmol/L (98-107); CREATININE 1.1 mg/dL (0.6-1.3); GLUCOSE 257 mg/dL (74-106); MAGNESIUM 2.2 mg/dL (1.8-2.4); POTASSIUM 3.9 mmol/L (3.5-5.1); SODIUM SERUM 139 mmol/L (136-145); UREA NITROGEN, BLOOD 37 mg/dL (7-18)
[2020-01-10] MEDS: HYDROGEN PEROXIDE 480 ML BOTTLE TP SCH ×2 (07:16→21:00)
[2020-01-10 07:34] VITALS: BP 121/56
[2020-01-10] MEDS: PROSOURCE / PROSTAT (PYXIS) 30 ML UDC GT SCH ×3 (08:41→16:20)
[2020-01-10] MEDS: KEPPRA 500 MG GT SCH ×2 (08:42→20:45)
[2020-01-10] MEDS: SITAGLIPTIN PHOSPHATE 50 MG TABLET GT SCH (08:42)
[2020-01-10] MEDS: VITS A AND D/WHITE PET/LANOLIN 5 GM PACKET TP SCH ×2 (08:42→21:09)
[2020-01-10] MEDS: SIROLIMUS 1 MG GT SCH (08:42)
[2020-01-10] MEDS: CLOTRIMAZOLE 1% 15 GM TUBE TP SCH ×2 (08:42→21:09)
[2020-01-10] MEDS: Z GUARD REMEDY 4 OZ OINT TP SCH ×2 (08:42→21:09)
[2020-01-10] MEDS: Z GUARD REMEDY 2 OZ OINT TP SCH ×4 (08:42→21:09)
[2020-01-10] MEDS: APIXABAN 5 MG TABLET GT SCH ×2 (08:42→16:20)
--- NOTE | 2020-01-10 09:15 | NUR ---
Relayed lactic acid 2.[address] Hood. No new order.
[2020-01-10] MEDS: DIGOXIN ELIX UDC 0.25 MG/5 ML UDC GT SCH (12:07)
[2020-01-10] MEDS: GLUCERNA 1.2 1,000 ML BOTTLE GT PRN (15:02)
--- NOTE | 2020-01-10 20:12 | NUR ---
RT NOTE PATIENT REC'D TRACH'D ON MECHANICAL VENT WITH CHARTED SETTINGS. VENT ALARMS ARE ON, SET, AND AUDIBLE. VENT PLUGGED INTO RED OUTLET. AMBU BAG AT BEDSIDE. NO SOB NOTED AT THIS TIME. WILL MONITOR T/O SHIFT. Addendum: 01/10/20 at 2012 by DEVANG BENNETT RT Amended: Links added.
[2020-01-10 20:27] VITALS: BP 158/78
[2020-01-10] MEDS: TAMSULOSIN 0.4 MG CAP.SR.24H GT SCH (21:09)
[2020-01-10] MEDS: LATANOPROST EYE DROP 0.005% 2.5 ML BOTTLE EACHEYE SCH (21:09)
[2020-01-11] MEDS: ALBUTEROL HALF STRENGTH 1.25 MG/3 ML VIAL.NEB NEB SCH ×4 (00:36→19:37)
[2020-01-11] MEDS: ACETAMINOPHEN 650 MG/20 ML UDC- SA PATIENTS-PAIN ONLY GT PRN (00:47)
[2020-01-11] MEDS: BLOOD SUGAR DIAGNOSTIC 1 EACH STRIP IN SCH ×3 (05:23→21:07)
[2020-01-11] MEDS: LEVOTHYROXINE SODIUM 50 MCG TABLET GT SCH (05:23)
[2020-01-11] MEDS: OMEPRAZOLE 20 MG CAPSULE.DR GT SCH (05:23)
[2020-01-11] MEDS: GLUCERNA 1.2 1,000 ML BOTTLE GT PRN (05:24)
[2020-01-11] MEDS: INSULIN ASPART/LISPRO 100 UNIT/ML CARTRIDGE SQ PRN ×3 (05:25→21:18)
[2020-01-11] MEDS: MEROPENEM 1 G in IV NS 0.9% 100 ML IV SCH ×2 (06:43→18:44)
[2020-01-11 06:47] LABS: POTASSIUM 4.5 mmol/L (3.5-5.1)
[2020-01-11 07:49] VITALS: BP 142/66
[2020-01-11] MEDS: PROSOURCE / PROSTAT (PYXIS) 30 ML UDC GT SCH ×3 (08:00→17:57)
[2020-01-11] MEDS: HYDROGEN PEROXIDE 480 ML BOTTLE TP SCH ×2 (08:27→21:21)
--- NOTE | 2020-01-11 08:44 | NUR ---
PT RCVD TRACH'D ON MECHANICAL VENT WITH CHARTED SETTINGS. PT DEONDRE TX WELL. SX DONE. PT TRACH IS PATENT AND SECURE. VENT ALARMS ARE ON, SET, AND AUDIBLE. VENT PLUGGED INTO RED OUTLET. AMBU BAG AT BEDSIDE. NO SOB NOTED. Addendum: 01/11/20 at 0844 by MARI GARCIA RT Amended: Links added.
[2020-01-11] MEDS: SITAGLIPTIN PHOSPHATE 50 MG TABLET GT SCH (09:52)
[2020-01-11] MEDS: Z GUARD REMEDY 2 OZ OINT TP SCH ×4 (09:52→21:07)
[2020-01-11] MEDS: CLOTRIMAZOLE 1% 15 GM TUBE TP SCH ×2 (09:52→21:07)
[2020-01-11] MEDS: KEPPRA 500 MG GT SCH ×2 (09:52→21:07)
[2020-01-11] MEDS: APIXABAN 5 MG TABLET GT SCH ×2 (09:52→17:57)
[2020-01-11] MEDS: SIROLIMUS 1 MG GT SCH (09:52)
[2020-01-11] MEDS: VITS A AND D/WHITE PET/LANOLIN 5 GM PACKET TP SCH ×2 (09:53→21:07)
[2020-01-11] MEDS: Z GUARD REMEDY 4 OZ OINT TP SCH ×2 (09:53→21:07)
--- NOTE | 2020-01-11 12:10 | NUR ---
Made a follow-up call again to [facility] lab regarding preliminary urine culture result. According to Danie he will call this nurse [facility]
[2020-01-11] MEDS: DIGOXIN ELIX UDC 0.25 MG/5 ML UDC GT SCH (13:39)
--- NOTE | 2020-01-11 15:56 | NUR ---
Seen by Clementina Taylor NP, reviewed final urine culture result, E. Coli ESBL. Patient currently on IV ATB, Merren and there is no need to extend therapy.
--- NOTE | 2020-01-11 16:25 | NUR ---
INTERDISCIPLINARY PLAN OF CARE CONFERENCE took place today. The patients responsible alliance party/ Trevon Albrecht was called to participate via phone conference, however, call went to voicemail. Charge nurse discussed the patients exhibiting low grade fever and Tx; negative flu test; 12/23 Lasix order;12/24 merrem for USBL Urine; 01/08 elevated lactic acid level (see nursing notes for details). Dr. Alicea and Interdisciplinary team discussed the plan of care in detail. Current orders as well as treatments and medications were reviewed. Please see other disciplines IDT notes for further details.
[2020-01-11 18:38] LABS: IRON, SERUM 36 ug/dl (50-175); TOTAL IRON BINDING CAPACITY 220 ug/dl (250-450)
[2020-01-11] MEDS: TAMSULOSIN 0.4 MG CAP.SR.24H GT SCH (21:07)
[2020-01-11] MEDS: LATANOPROST EYE DROP 0.005% 2.5 ML BOTTLE EACHEYE SCH (21:07)
[2020-01-11] MEDS: SIMETHICONE 80 MG TAB.CHEW GT PRN (21:08)
[2020-01-12] MEDS: ALBUTEROL HALF STRENGTH 1.25 MG/3 ML VIAL.NEB NEB SCH ×4 (01:15→19:31)
[2020-01-12 03:46] VITALS: BP 121/56
[2020-01-12] MEDS: OMEPRAZOLE 20 MG CAPSULE.DR GT SCH (05:34)
[2020-01-12] MEDS: BLOOD SUGAR DIAGNOSTIC 1 EACH STRIP IN SCH ×3 (05:34→21:25)
[2020-01-12] MEDS: LEVOTHYROXINE SODIUM 50 MCG TABLET GT SCH (05:34)
[2020-01-12] MEDS: GLUCERNA 1.2 1,000 ML BOTTLE GT PRN (05:35)
[2020-01-12] MEDS: INSULIN ASPART/LISPRO 100 UNIT/ML CARTRIDGE SQ PRN ×3 (05:38→21:30)
[2020-01-12] MEDS: MEROPENEM 1 G in IV NS 0.9% 100 ML IV SCH ×2 (05:47→17:52)
[2020-01-12 06:55] LABS: CALCIUM, SERUM 9.9 mg/dL (8.5-10.1); CREATININE 1.2 mg/dL (0.6-1.3); POTASSIUM 4.2 mmol/L (3.5-5.1)
[2020-01-12 07:36] VITALS: BP 124/60
--- NOTE | 2020-01-12 07:53 | NUR ---
PT RCVD TRACH'D ON MECHANICAL VENT WITH CHARTED SETTINGS. PT DEONDRE TX WELL. SX DONE. PT TRACH IS PATENT AND SECURE. VENT ALARMS ARE ON, SET, AND AUDIBLE. VENT PLUGGED INTO RED OUTLET. AMBU BAG AT BEDSIDE. NO SOB NOTED. Addendum: 01/12/20 at 0754 by MARI GARCIA RT Amended: Links added.
[2020-01-12] MEDS: PROSOURCE / PROSTAT (PYXIS) 30 ML UDC GT SCH ×3 (08:00→17:15)
[2020-01-12] MEDS: HYDROGEN PEROXIDE 480 ML BOTTLE TP SCH ×2 (08:21→21:18)
[2020-01-12] MEDS: CLOTRIMAZOLE 1% 15 GM TUBE TP SCH ×2 (09:00→21:22)
[2020-01-12] MEDS: SITAGLIPTIN PHOSPHATE 50 MG TABLET GT SCH (09:47)
[2020-01-12] MEDS: SIROLIMUS 1 MG GT SCH (09:47)
[2020-01-12] MEDS: KEPPRA 500 MG GT SCH ×2 (09:47→21:21)
[2020-01-12] MEDS: Z GUARD REMEDY 2 OZ OINT TP SCH ×4 (09:47→21:22)
[2020-01-12] MEDS: APIXABAN 5 MG TABLET GT SCH ×2 (09:47→17:15)
[2020-01-12] MEDS: VITS A AND D/WHITE PET/LANOLIN 5 GM PACKET TP SCH ×2 (09:48→21:22)
[2020-01-12] MEDS: Z GUARD REMEDY 4 OZ OINT TP SCH ×2 (09:48→21:22)
[2020-01-12] MEDS: DIGOXIN ELIX UDC 0.25 MG/5 ML UDC GT SCH (12:19)
--- NOTE | 2020-01-12 13:57 | NUR ---
Carry out an order given by Dr. Mak to Malia [facility] pharmacist to increase Digoxin from 125 mcg. to 187.5 mcg. due to a low Digoxin level 0.56 on 12/06. Order carried out. Dakota (son) informed.
[2020-01-12 20:24] VITALS: BP 115/70
[2020-01-12] MEDS: TAMSULOSIN 0.4 MG CAP.SR.24H GT SCH (21:22)
[2020-01-12] MEDS: LATANOPROST EYE DROP 0.005% 2.5 ML BOTTLE EACHEYE SCH (21:22)
[2020-01-13] MEDS: ALBUTEROL HALF STRENGTH 1.25 MG/3 ML VIAL.NEB NEB SCH ×4 (01:25→19:30)
[2020-01-13] MEDS: LEVOTHYROXINE SODIUM 50 MCG TABLET GT SCH (05:17)
[2020-01-13] MEDS: OMEPRAZOLE 20 MG CAPSULE.DR GT SCH (05:17)
[2020-01-13] MEDS: BLOOD SUGAR DIAGNOSTIC 1 EACH STRIP IN SCH ×3 (05:17→21:04)
[2020-01-13] MEDS: INSULIN ASPART/LISPRO 100 UNIT/ML CARTRIDGE SQ PRN ×3 (05:25→21:05)
[2020-01-13 07:47] VITALS: BP 116/69
[2020-01-13] MEDS: PROSOURCE / PROSTAT (PYXIS) 30 ML UDC GT SCH ×3 (08:00→17:25)
[2020-01-13] MEDS: HYDROGEN PEROXIDE 480 ML BOTTLE TP SCH ×2 (08:16→19:30)
--- NOTE | 2020-01-13 08:51 | NUR ---
PT RCVD TRACH'D ON MECHANICAL VENT WITH CHARTED SETTINGS. PT DEONDRE TX WELL. SX DONE. PT TRACH IS PATENT AND SECURE. VENT ALARMS ARE ON, SET, AND AUDIBLE. VENT PLUGGED INTO RED OUTLET. AMBU BAG AT BEDSIDE. NO SOB NOTED. Addendum: 01/13/20 at 0851 by MARI GARCIA RT Amended: Links added.
[2020-01-13] MEDS: SIROLIMUS 1 MG GT SCH (09:00)
[2020-01-13] MEDS: Z GUARD REMEDY 4 OZ OINT TP SCH ×2 (09:00→20:37)
[2020-01-13] MEDS: KEPPRA 500 MG GT SCH ×2 (09:00→20:37)
[2020-01-13] MEDS: CLOTRIMAZOLE 1% 15 GM TUBE TP SCH ×2 (09:00→20:37)
[2020-01-13] MEDS: SITAGLIPTIN PHOSPHATE 50 MG TABLET GT SCH (09:00)
[2020-01-13] MEDS: VITS A AND D/WHITE PET/LANOLIN 5 GM PACKET TP SCH ×2 (09:00→20:37)
[2020-01-13] MEDS: Z GUARD REMEDY 2 OZ OINT TP SCH ×4 (09:00→20:37)
[2020-01-13] MEDS: APIXABAN 5 MG TABLET GT SCH ×2 (10:00→17:25)
[2020-01-13] MEDS ORDERED: DIGOXIN ELIX UDC 0.25 MG/5 ML UDC GT SCH (13:00)
[2020-01-13] MEDS ORDERED: SOD FERRIC GLUC 125 MG in IV NS 0.9% 100 ML IV SCH (14:00)
--- NOTE | 2020-01-13 15:00 | NUR ---
Dr. Mak,H ordered to start Ferrlecit 125mg IV q 24 hrs. x 5 days due to low iron. Noted and carried out. Called [facility] pharmacy and spoke to pharmacist Kemar, per Kemar will process first and will call back.
--- NOTE | 2020-01-13 15:45 | NUR ---
[facility] pharmacist Kemar called back and stated that Ferrlecit 125mg IV is not covered by patients' insurance due to patient is not on dialysis. He recommended to let MD know to start patient on iron supplement at this time. [facility] Pharmacist Malia made aware too and recommended the same. Called and left message to answering service of Dr. Mak. Waiting for call back.
--- NOTE | 2020-01-13 16:30 | NUR ---
Dr. Mak called back and made him aware that Ferrlecit IV is not covered. He discontinued Ferrlecit 125 mg IV Q 24 hrs. x 5 days. He okay recommendation of pharmacist to start patient on Ferrous sulfate 330mg/7.5ml via GT 3 x/day. Noted and carried out.
[2020-01-13] MEDS: GLUCERNA 1.2 1,000 ML BOTTLE GT PRN (18:07)
[2020-01-13 19:47] VITALS: BP 136/69
[2020-01-13] MEDS: TAMSULOSIN 0.4 MG CAP.SR.24H GT SCH (21:04)
[2020-01-13] MEDS: LATANOPROST EYE DROP 0.005% 2.5 ML BOTTLE EACHEYE SCH (21:04)
[2020-01-14] MEDS: ALBUTEROL HALF STRENGTH 1.25 MG/3 ML VIAL.NEB NEB SCH ×4 (01:55→19:30)
[2020-01-14] MEDS: OMEPRAZOLE 20 MG CAPSULE.DR GT SCH (05:02)
[2020-01-14] MEDS: LEVOTHYROXINE SODIUM 50 MCG TABLET GT SCH (05:02)
[2020-01-14] MEDS: BLOOD SUGAR DIAGNOSTIC 1 EACH STRIP IN SCH ×3 (05:41→21:23)
[2020-01-14] MEDS: INSULIN ASPART/LISPRO 100 UNIT/ML CARTRIDGE SQ PRN ×3 (05:42→21:26)
[2020-01-14 07:38] VITALS: BP 116/65
[2020-01-14] MEDS: PROSOURCE / PROSTAT (PYXIS) 30 ML UDC GT SCH ×3 (08:16→17:28)
[2020-01-14] MEDS: APIXABAN 5 MG TABLET GT SCH ×2 (08:17→17:28)
[2020-01-14] MEDS: Z GUARD REMEDY 2 OZ OINT TP SCH ×4 (08:17→21:23)
[2020-01-14] MEDS: SIROLIMUS 1 MG GT SCH (08:17)
[2020-01-14] MEDS: SITAGLIPTIN PHOSPHATE 50 MG TABLET GT SCH (08:17)
[2020-01-14] MEDS: KEPPRA 500 MG GT SCH ×2 (08:17→21:23)
[2020-01-14] MEDS: VITS A AND D/WHITE PET/LANOLIN 5 GM PACKET TP SCH ×2 (08:18→21:23)
[2020-01-14] MEDS: Z GUARD REMEDY 4 OZ OINT TP SCH ×2 (08:18→21:23)
[2020-01-14] MEDS: CLOTRIMAZOLE 1% 15 GM TUBE TP SCH ×2 (08:28→21:23)
[2020-01-14] MEDS: HYDROGEN PEROXIDE 480 ML BOTTLE TP SCH ×2 (08:31→21:00)
--- NOTE | 2020-01-14 11:15 | NUR ---
Seen by LENKA Taylor. Received order to do UA C & S for screening. She ordered to do straight catheterization for urine collection. Notified
[2020-01-14] MEDS: DIGOXIN 0.125 MG TABLET GT SCH (12:27)
[2020-01-14 15:06] LABS: APPEARANCE,URINE CLEAR (CLEAR); BILIRUBIN,URINE NEGATIVE (NEGATIVE); BLOOD, URINE NEGATIVE Ery/uL (NEGATIVE); COLOR,URINE YELLOW (YELLOW); KETONES,URINE NEGATIVE (NEGATIVE); LEUKOCYTE ESTERASE ,URINE NEGATIVE (NEGATIVE); NITRITE, URINE NEGATIVE (NEGATIVE); PROTEIN,URINE 100 mg/dl (NEGATIVE); UGLUCOSE 250 MG/DL mg/dL (NEGATIVE)
[2020-01-14 15:27] LABS: BACTERIA,URINE None seen /HPF (None Seen); RBC,URINE 0-2 /HPF (0-2); SQUAMOUS EPITHELIAL CELL,UR 0-2 /HPF (None Seen); WBC,URINE 0-2 /HPF (0-3)
[2020-01-14] MEDS: FERROUS SULFATE - FOR SA ONLY 330 MG/7.5 ML UDC GT SCH (17:28)
[2020-01-14] MEDS: GLUCERNA 1.2 1,000 ML BOTTLE GT PRN (17:48)
[2020-01-14 19:52] VITALS: BP 128/70
--- NOTE | 2020-01-14 20:00 | NUR ---
RN NOTES Received new order from Clementina Taylor NP, to D/C contact isolation for ESBL urine, noted and carried out.
[2020-01-14] MEDS: LATANOPROST EYE DROP 0.005% 2.5 ML BOTTLE EACHEYE SCH (21:23)
[2020-01-14] MEDS: INSULIN GLARGINE,BASAGLAR 100 UNIT/ML INSULN.PEN SQ SCH ×2 (21:23→22:00)
[2020-01-14] MEDS: TAMSULOSIN 0.4 MG CAP.SR.24H GT SCH (21:23)
[2020-01-15] MEDS: ALBUTEROL HALF STRENGTH 1.25 MG/3 ML VIAL.NEB NEB SCH ×4 (00:32→19:09)
[2020-01-15] MEDS: LEVOTHYROXINE SODIUM 50 MCG TABLET GT SCH (05:27)
[2020-01-15] MEDS: OMEPRAZOLE 20 MG CAPSULE.DR GT SCH (05:27)
[2020-01-15] MEDS: BLOOD SUGAR DIAGNOSTIC 1 EACH STRIP IN SCH ×3 (05:27→21:28)
[2020-01-15] MEDS: INSULIN ASPART/LISPRO 100 UNIT/ML CARTRIDGE SQ PRN ×3 (05:29→21:31)
[2020-01-15 06:57] LABS: ALBUMIN 2.9 g/dL (3.4-5.0); BILIRUBIN,TOTAL 0.5 mg/dL (0.2-1.0); CALCIUM, SERUM 9.2 mg/dL (8.5-10.1); CREATININE 1.2 mg/dL (0.6-1.3); MAGNESIUM 2.8 mg/dL (1.8-2.4); PHOSPHORUS 2.8 mg/dL (2.5-4.9); POTASSIUM 4.1 mmol/L (3.5-5.1); TOTAL PROTEIN, SERUM 7.5 g/dL (6.4-8.2)
[2020-01-15 07:03] LABS: BASOPHILS # (AUTO) 0.1 /CMM (0.0-0.2); BASOPHILS % (AUTO) 2.2 % (0.0-2.0); EOSINOPHILS % (AUTO) 4.1 % (0.0-6.0); HEMATOCRIT 32 % (39-51); HEMOGLOBIN 10.2 g/dL (13.5-17.5); LYMPHOCYTES # (AUTO) 0.9 /CMM (0.8-4.8); LYMPHOCYTES % (AUTO) 17.6 % (20.0-44.0); MEAN CORPUSCULAR HGB CONC 32 g/dl (31.0-36.0); MEAN CORPUSCULAR VOLUME 93 fL (80-96); MONOCYTES # (AUTO) 0.6 /CMM (0.1-1.30); MONOCYTES % (AUTO) 11.9 % (2.0-12.0); NEUTROPHILS # (AUTO) 3.4 /CMM (1.8-8.9); NEUTROPHILS % (AUTO) 64.2 % (43.0-81.0); PLATELET COUNT (AUTO) 194 /CMM (150-450); RED BLOOD CELL COUNT(AUTO) 3.48 MIL/uL (4.5-6.0); WHITE BLOOD COUNT (AUTO) 5.3 K/uL (4.3-11.0)
[2020-01-15 07:32] VITALS: BP 150/86
[2020-01-15] MEDS: PROSOURCE / PROSTAT (PYXIS) 30 ML UDC GT SCH ×3 (08:54→17:24)
[2020-01-15] MEDS: CLOTRIMAZOLE 1% 15 GM TUBE TP SCH ×2 (08:55→21:28)
[2020-01-15] MEDS: APIXABAN 5 MG TABLET GT SCH ×2 (08:55→17:24)
[2020-01-15] MEDS: VITS A AND D/WHITE PET/LANOLIN 5 GM PACKET TP SCH ×2 (08:55→21:28)
[2020-01-15] MEDS: Z GUARD REMEDY 4 OZ OINT TP SCH ×2 (08:55→21:28)
[2020-01-15] MEDS: FERROUS SULFATE - FOR SA ONLY 330 MG/7.5 ML UDC GT SCH ×3 (08:55→17:24)
[2020-01-15] MEDS: Z GUARD REMEDY 2 OZ OINT TP SCH ×4 (08:55→21:28)
[2020-01-15] MEDS: KEPPRA 500 MG GT SCH ×2 (08:55→21:28)
[2020-01-15] MEDS: SIROLIMUS 1 MG GT SCH (08:55)
[2020-01-15] MEDS: SITAGLIPTIN PHOSPHATE 50 MG TABLET GT SCH (08:55)
[2020-01-15] MEDS: HYDROGEN PEROXIDE 480 ML BOTTLE TP SCH ×2 (09:00→21:00)
[2020-01-15 09:35] LABS: BAND % (MANUAL) 1 % (0.0-5.0); EOSINOPHILS % (MANUAL) 3 % (0-4); LYMPHOCYTES % (MANUAL) 17 % (16-48); MONOCYTES % (MANUAL) 14 % (0-11.0); NEUTROPHILS % (MANUAL) 65 (42-76)
--- NOTE | 2020-01-15 13:06 | NUR ---
RT pt received on vent, trached, Shiley 8, with current settings. ambu bag at head of bed. spare trach at bedside. minimal secretions. no respiratory distress. hob at 30 degrees. alarms on and audible. trach care done. no new orders. will continue to monitor. Addendum: 01/15/20 at 1309 by JULIET IGNACIO RT Amended: Links added.
[2020-01-15] MEDS: DIGOXIN 0.125 MG TABLET GT SCH (13:10)
--- NOTE | 2020-01-15 16:03 | NUR ---
SW attempted to facilitate video call with the patient's son, Trevon Albrecht. The call was not answered. SW will continue to support family/patient video calls as needed.
--- NOTE | 2020-01-15 16:39 | NUR ---
Dr Alicea ordered to place pt on SIMV 4 PSV 15 PEEP +5 FiO2 30%, ABG in 1 hour post vent change on 01/16/20. Notified Trevon. Also notified Trevon that pt is now off contact isolation.
[2020-01-15 20:04] VITALS: BP 135/81
[2020-01-15] MEDS: LATANOPROST EYE DROP 0.005% 2.5 ML BOTTLE EACHEYE SCH (21:28)
[2020-01-15] MEDS: TAMSULOSIN 0.4 MG CAP.SR.24H GT SCH (21:28)
[2020-01-15] MEDS: INSULIN GLARGINE,BASAGLAR 100 UNIT/ML INSULN.PEN SQ SCH (21:29)
[2020-01-16] MEDS: ALBUTEROL HALF STRENGTH 1.25 MG/3 ML VIAL.NEB NEB SCH ×4 (01:17→19:47)
[2020-01-16] MEDS: LEVOTHYROXINE SODIUM 50 MCG TABLET GT SCH (05:30)
[2020-01-16] MEDS: BLOOD SUGAR DIAGNOSTIC 1 EACH STRIP IN SCH ×3 (05:30→21:32)
[2020-01-16] MEDS: OMEPRAZOLE 20 MG CAPSULE.DR GT SCH (05:30)
[2020-01-16] MEDS: INSULIN ASPART/LISPRO 100 UNIT/ML CARTRIDGE SQ PRN ×3 (05:31→21:35)
[2020-01-16 07:37] VITALS: BP 128/63
--- NOTE | 2020-01-16 07:50 | NUR ---
PT RCVD TRACH'D ON MECHANICAL VENT. VENT CHANGES DONE PER MD THOMAS ORDER. PT DEONDRE TX WELL. SX DONE. PT TRACH IS PATENT AND SECURE. VENT ALARMS ARE ON, SET, AND AUDIBLE. VENT PLUGGED INTO RED OUTLET. AMBU BAG AT BEDSIDE. NO SOB NOTED. Addendum: 01/16/20 at 0836 by MARI GARCIA RT Amended: Links added.
[2020-01-16] MEDS: PROSOURCE / PROSTAT (PYXIS) 30 ML UDC GT SCH ×3 (08:00→17:19)
[2020-01-16] MEDS: HYDROGEN PEROXIDE 480 ML BOTTLE TP SCH ×2 (08:06→21:00)
[2020-01-16] MEDS: VITS A AND D/WHITE PET/LANOLIN 5 GM PACKET TP SCH ×2 (09:00→20:47)
[2020-01-16] MEDS: FERROUS SULFATE - FOR SA ONLY 330 MG/7.5 ML UDC GT SCH ×3 (09:00→17:19)
[2020-01-16] MEDS: KEPPRA 500 MG GT SCH ×2 (09:00→20:46)
[2020-01-16] MEDS: SITAGLIPTIN PHOSPHATE 50 MG TABLET GT SCH (09:00)
[2020-01-16] MEDS: Z GUARD REMEDY 4 OZ OINT TP SCH ×2 (09:00→20:46)
[2020-01-16] MEDS: Z GUARD REMEDY 2 OZ OINT TP SCH ×4 (09:00→20:46)
[2020-01-16] MEDS: CLOTRIMAZOLE 1% 15 GM TUBE TP SCH ×2 (09:00→20:46)
[2020-01-16] MEDS: APIXABAN 5 MG TABLET GT SCH ×2 (09:00→17:19)
[2020-01-16] MEDS: SIROLIMUS 1 MG GT SCH (09:00)
[2020-01-16 09:01] LABS: ABG BASE EXCESS 4.1 mmol/L; ABG OXYGEN SATURATION 97.2 % (92.0-98.5); ABG PCO2 38.3 mmHg (35.0-45.0); ABG PH 7.479 (7.350-7.450); ABG PO2 105.9 mmHg (75.0-100.0); COHb 0.4 % (0.5-1.5); MetHb 0.4 % (0.0-1.5); O2Hb 96.4 % (94.0-97.0); PEEP,BG 5 cm H2O; SITE, ABG Right Radial
[2020-01-16] MEDS: DIGOXIN 0.125 MG TABLET GT SCH (13:09)
[2020-01-16] MEDS: SIMETHICONE 80 MG TAB.CHEW GT PRN (20:57)
[2020-01-16] MEDS: LATANOPROST EYE DROP 0.005% 2.5 ML BOTTLE EACHEYE SCH (21:32)
[2020-01-16] MEDS: TAMSULOSIN 0.4 MG CAP.SR.24H GT SCH (21:32)
[2020-01-16] MEDS: INSULIN GLARGINE,BASAGLAR 100 UNIT/ML INSULN.PEN SQ SCH (21:33)
[2020-01-16 21:51] VITALS: BP 127/69
--- NOTE | 2020-01-16 22:59 | NUR ---
RT NOTE PT RECEIVED TRACHED ON MECHANICAL VENTILATION. AMBU BAG/BACK UP TRACH @ BEDSIDE. TX GIVEN, NO ADVERSE REACTIONS NOTED. SX DONE, TRACH SECURED AND PATENT. ALARMS ON AND AUDIBLE. NO DISTRESS NOTED. WILL MONITOR T/O SHIFT. CONT. PULSE OX CONNECTED. Addendum: 01/16/20 at 2301 by MANNIE ESCAMILLA RT Amended: Links added.
[2020-01-16] MEDS: GLUCERNA 1.2 1,000 ML BOTTLE GT PRN (23:51)
[2020-01-17] MEDS: ALBUTEROL HALF STRENGTH 1.25 MG/3 ML VIAL.NEB NEB SCH ×4 (01:43→19:24)
--- NOTE | 2020-01-17 04:59 | NUR ---
RT NOTE PT TOLERATING SIMV WELL T/O SHIFT. NO DISTRESS NOTED. CONT. PULSE OX CONNECTED.
[2020-01-17] MEDS: LEVOTHYROXINE SODIUM 50 MCG TABLET GT SCH (05:41)
[2020-01-17] MEDS: OMEPRAZOLE 20 MG CAPSULE.DR GT SCH (05:41)
[2020-01-17] MEDS: BLOOD SUGAR DIAGNOSTIC 1 EACH STRIP IN SCH ×3 (05:41→20:49)
[2020-01-17] MEDS: INSULIN ASPART/LISPRO 100 UNIT/ML CARTRIDGE SQ PRN ×3 (05:43→20:52)
[2020-01-17 07:20] VITALS: BP 120/65
[2020-01-17] MEDS: PROSOURCE / PROSTAT (PYXIS) 30 ML UDC GT SCH ×3 (08:00→16:55)
[2020-01-17] MEDS: HYDROGEN PEROXIDE 480 ML BOTTLE TP SCH ×2 (08:02→21:00)
[2020-01-17] MEDS: FERROUS SULFATE - FOR SA ONLY 330 MG/7.5 ML UDC GT SCH ×3 (09:23→16:55)
[2020-01-17] MEDS: Z GUARD REMEDY 2 OZ OINT TP SCH ×4 (09:23→20:49)
[2020-01-17] MEDS: CLOTRIMAZOLE 1% 15 GM TUBE TP SCH ×2 (09:23→20:49)
[2020-01-17] MEDS: SIROLIMUS 1 MG GT SCH (09:23)
[2020-01-17] MEDS: KEPPRA 500 MG GT SCH ×2 (09:23→20:49)
[2020-01-17] MEDS: SITAGLIPTIN PHOSPHATE 50 MG TABLET GT SCH (09:23)
[2020-01-17] MEDS: APIXABAN 5 MG TABLET GT SCH ×2 (09:23→16:55)
[2020-01-17] MEDS: VITS A AND D/WHITE PET/LANOLIN 5 GM PACKET TP SCH ×2 (09:23→20:49)
[2020-01-17] MEDS: Z GUARD REMEDY 4 OZ OINT TP SCH ×2 (09:23→20:49)
--- NOTE | 2020-01-17 09:36 | NUR ---
Pt received on current settings. Airway is patent and secure with no signs of respiratory distress. HHN tx given with no adverse reaction. Vent is plugged into red outlet with alarms on and audible. Suction Pt as needed. Will continue to monitor. Addendum: 01/17/20 at 0940 by DESIRE CHOI RT Amended: Links added.
--- NOTE | 2020-01-17 12:49 | NUR ---
DELMI received message on ipad from the patient's son, Trevon stating that he appreciates the facetime attemps but has not been available. Per Trevon, he will inform DELMI about his availability.
[2020-01-17] MEDS: DIGOXIN 0.125 MG TABLET GT SCH (13:04)
[2020-01-17] MEDS: GLUCERNA 1.2 1,000 ML BOTTLE GT PRN (16:56)
--- NOTE | 2020-01-17 19:27 | NUR ---
RT NOTE PT RECEIVED TRACHED ON MECHANICAL VENTILATION. AMBU BAG/BACK UP TRACH @ BEDSIDE. TX GIVEN, NO ADVERSE REACTIONS NOTED. SX DONE, TRACH SECURED AND PATENT. ALARMS ON AND AUDIBLE. NO DISTRESS NOTED. WILL MONITOR T/O SHIFT. CONT. PULSE OX CONNECTED. Addendum: 01/17/20 at 1928 by MATHEW RICHARDS RT Amended: Links added.
[2020-01-17 20:39] VITALS: BP 120/70
[2020-01-17] MEDS: LATANOPROST EYE DROP 0.005% 2.5 ML BOTTLE EACHEYE SCH (21:15)
[2020-01-17] MEDS: TAMSULOSIN 0.4 MG CAP.SR.24H GT SCH (21:15)
[2020-01-17] MEDS: INSULIN GLARGINE,BASAGLAR 100 UNIT/ML INSULN.PEN SQ SCH (22:54)
[2020-01-18] MEDS: ALBUTEROL HALF STRENGTH 1.25 MG/3 ML VIAL.NEB NEB SCH ×4 (01:34→20:02)
[2020-01-18] MEDS: INSULIN ASPART/LISPRO 100 UNIT/ML CARTRIDGE SQ PRN ×3 (05:25→21:10)
[2020-01-18] MEDS: OMEPRAZOLE 20 MG CAPSULE.DR GT SCH (05:25)
[2020-01-18] MEDS: LEVOTHYROXINE SODIUM 50 MCG TABLET GT SCH (05:25)
[2020-01-18] MEDS: BLOOD SUGAR DIAGNOSTIC 1 EACH STRIP IN SCH ×3 (05:25→21:06)
[2020-01-18 07:46] VITALS: BP 131/60
[2020-01-18] MEDS: PROSOURCE / PROSTAT (PYXIS) 30 ML UDC GT SCH ×3 (08:00→16:52)
[2020-01-18] MEDS: HYDROGEN PEROXIDE 480 ML BOTTLE TP SCH ×2 (08:17→21:31)
[2020-01-18] MEDS: SIROLIMUS 1 MG GT SCH (09:23)
[2020-01-18] MEDS: KEPPRA 500 MG GT SCH ×2 (09:23→21:06)
[2020-01-18] MEDS: FERROUS SULFATE - FOR SA ONLY 330 MG/7.5 ML UDC GT SCH ×3 (09:23→16:52)
[2020-01-18] MEDS: VITS A AND D/WHITE PET/LANOLIN 5 GM PACKET TP SCH ×2 (09:24→21:07)
[2020-01-18] MEDS: CLOTRIMAZOLE 1% 15 GM TUBE TP SCH ×2 (09:24→21:07)
[2020-01-18] MEDS: SITAGLIPTIN PHOSPHATE 50 MG TABLET GT SCH (09:24)
[2020-01-18] MEDS: Z GUARD REMEDY 2 OZ OINT TP SCH ×4 (09:24→21:07)
[2020-01-18] MEDS: Z GUARD REMEDY 4 OZ OINT TP SCH ×2 (09:24→21:07)
[2020-01-18] MEDS: APIXABAN 5 MG TABLET GT SCH ×2 (09:26→16:52)
--- NOTE | 2020-01-18 10:16 | NUR ---
Seen and examined by TANNING SALON ATTENDANT Clementina Taylor, no new order given. Patient tolerating current vent setting of SIMV 4, PS 20, Peep5, F102 30%, O2 sat 98-99%%. No s/s of respiratory distress.
[2020-01-18] MEDS: GLUCERNA 1.2 1,000 ML BOTTLE GT PRN (13:01)
[2020-01-18] MEDS: DIGOXIN 0.125 MG TABLET GT SCH (13:01)
--- NOTE | 2020-01-18 17:29 | NUR ---
RT NOTE RECEIVED PATIENT ON MECHANICAL VENT WITH ORDERED SETTINGS. ALARMS ON AND AUDIBLE. VENT PLUGGED IN TO RED OUTLET TRACH TUBE IN PLACE, PATENT, AND SECURED WITH TRACH TIE. AMBU BAG AND BACK UP TRACH BY THE BEDSIDE. NO DISTRESS AT THIS TIME.
[2020-01-18 19:51] VITALS: BP 144/68
[2020-01-18] MEDS: LATANOPROST EYE DROP 0.005% 2.5 ML BOTTLE EACHEYE SCH (21:07)
[2020-01-18] MEDS: TAMSULOSIN 0.4 MG CAP.SR.24H GT SCH (21:07)
[2020-01-18] MEDS: INSULIN GLARGINE,BASAGLAR 100 UNIT/ML INSULN.PEN SQ SCH (21:08)
[2020-01-19] MEDS: ALBUTEROL HALF STRENGTH 1.25 MG/3 ML VIAL.NEB NEB SCH ×4 (01:42→19:49)
[2020-01-19] MEDS: BLOOD SUGAR DIAGNOSTIC 1 EACH STRIP IN SCH ×3 (05:20→21:31)
[2020-01-19] MEDS: OMEPRAZOLE 20 MG CAPSULE.DR GT SCH (06:16)
[2020-01-19] MEDS: GLUCERNA 1.2 1,000 ML BOTTLE GT PRN ×2 (06:16→21:25)
[2020-01-19] MEDS: LEVOTHYROXINE SODIUM 50 MCG TABLET GT SCH (06:16)
[2020-01-19] MEDS: INSULIN ASPART/LISPRO 100 UNIT/ML CARTRIDGE SQ PRN ×3 (06:18→21:34)
[2020-01-19 07:32] VITALS: BP 125/69
[2020-01-19] MEDS: PROSOURCE / PROSTAT (PYXIS) 30 ML UDC GT SCH ×3 (08:00→16:42)
[2020-01-19] MEDS: Z GUARD REMEDY 4 OZ OINT TP SCH ×2 (09:00→21:19)
[2020-01-19] MEDS: VITS A AND D/WHITE PET/LANOLIN 5 GM PACKET TP SCH ×2 (09:00→21:19)
[2020-01-19] MEDS: Z GUARD REMEDY 2 OZ OINT TP SCH ×4 (09:00→21:19)
[2020-01-19] MEDS: CLOTRIMAZOLE 1% 15 GM TUBE TP SCH ×2 (09:00→21:19)
[2020-01-19] MEDS: HYDROGEN PEROXIDE 480 ML BOTTLE TP SCH ×2 (09:00→21:15)
[2020-01-19] MEDS: KEPPRA 500 MG GT SCH ×2 (09:19→21:18)
[2020-01-19] MEDS: FERROUS SULFATE - FOR SA ONLY 330 MG/7.5 ML UDC GT SCH ×3 (09:19→16:42)
[2020-01-19] MEDS: APIXABAN 5 MG TABLET GT SCH ×2 (09:19→16:42)
[2020-01-19] MEDS: SITAGLIPTIN PHOSPHATE 50 MG TABLET GT SCH (09:19)
[2020-01-19] MEDS: SIROLIMUS 1 MG GT SCH (09:19)
--- NOTE | 2020-01-19 09:31 | NUR ---
RT NOTE PATIENT REC'D TRACH'D ON MECHANICAL VENT WITH CHARTED SETTINGS. VENT ALARMS ARE ON, SET, AND AUDIBLE. VENT PLUGGED INTO RED OUTLET. AMBU BAG AT BEDSIDE. NO SOB NOTED AT THIS TIME. WILL MONITOR T/O SHIFT. Addendum: 01/19/20 at 0931 by DEVANG BENNETT RT Amended: Links added.
[2020-01-19] MEDS: DIGOXIN 0.125 MG TABLET GT SCH (12:14)
[2020-01-19 21:13] VITALS: BP 125/78
[2020-01-19] MEDS: TAMSULOSIN 0.4 MG CAP.SR.24H GT SCH (21:19)
[2020-01-19] MEDS: LATANOPROST EYE DROP 0.005% 2.5 ML BOTTLE EACHEYE SCH (21:19)
[2020-01-19] MEDS: INSULIN GLARGINE,BASAGLAR 100 UNIT/ML INSULN.PEN SQ SCH (21:32)
[2020-01-20] MEDS: ALBUTEROL HALF STRENGTH 1.25 MG/3 ML VIAL.NEB NEB SCH ×4 (01:26→19:17)
[2020-01-20] MEDS: LEVOTHYROXINE SODIUM 50 MCG TABLET GT SCH (05:28)
[2020-01-20] MEDS: OMEPRAZOLE 20 MG CAPSULE.DR GT SCH (05:28)
[2020-01-20] MEDS: BLOOD SUGAR DIAGNOSTIC 1 EACH STRIP IN SCH ×3 (05:28→20:38)
[2020-01-20] MEDS: INSULIN ASPART/LISPRO 100 UNIT/ML CARTRIDGE SQ PRN ×3 (05:29→20:40)
[2020-01-20 07:20] VITALS: BP 132/62
[2020-01-20] MEDS: PROSOURCE / PROSTAT (PYXIS) 30 ML UDC GT SCH ×3 (08:00→16:05)
--- NOTE | 2020-01-20 08:19 | NUR ---
RT NOTE PATIENT REC'D TRACH'D ON MECHANICAL VENT WITH CHARTED SETTINGS. VENT ALARMS ARE ON, SET, AND AUDIBLE. VENT PLUGGED INTO RED OUTLET. AMBU BAG AT BEDSIDE. NO SOB NOTED AT THIS TIME. WILL MONITOR T/O SHIFT. Addendum: 01/20/20 at 0820 by DEVANG BENNETT RT Amended: Links added.
[2020-01-20] MEDS: HYDROGEN PEROXIDE 480 ML BOTTLE TP SCH ×2 (09:00→21:46)
[2020-01-20] MEDS: Z GUARD REMEDY 2 OZ OINT TP SCH ×4 (09:44→20:38)
[2020-01-20] MEDS: SIROLIMUS 1 MG GT SCH (09:44)
[2020-01-20] MEDS: KEPPRA 500 MG GT SCH ×2 (09:44→20:38)
[2020-01-20] MEDS: CLOTRIMAZOLE 1% 15 GM TUBE TP SCH ×2 (09:44→20:38)
[2020-01-20] MEDS: APIXABAN 5 MG TABLET GT SCH ×2 (09:44→16:05)
[2020-01-20] MEDS: FERROUS SULFATE - FOR SA ONLY 330 MG/7.5 ML UDC GT SCH ×3 (09:44→16:05)
[2020-01-20] MEDS: SITAGLIPTIN PHOSPHATE 50 MG TABLET GT SCH (09:44)
[2020-01-20] MEDS: Z GUARD REMEDY 4 OZ OINT TP SCH ×2 (09:45→20:38)
[2020-01-20] MEDS: VITS A AND D/WHITE PET/LANOLIN 5 GM PACKET TP SCH ×2 (09:45→20:38)
[2020-01-20] MEDS: DIGOXIN 0.125 MG TABLET GT SCH (12:09)
[2020-01-20] MEDS: GLUCERNA 1.2 1,000 ML BOTTLE GT PRN (15:46)
[2020-01-20 19:40] VITALS: BP 147/68
[2020-01-20] MEDS: TAMSULOSIN 0.4 MG CAP.SR.24H GT SCH (21:47)
[2020-01-20] MEDS: LATANOPROST EYE DROP 0.005% 2.5 ML BOTTLE EACHEYE SCH (21:47)
[2020-01-20] MEDS: INSULIN GLARGINE,BASAGLAR 100 UNIT/ML INSULN.PEN SQ SCH (22:00)
[2020-01-21] MEDS: ALBUTEROL HALF STRENGTH 1.25 MG/3 ML VIAL.NEB NEB SCH ×4 (01:28→20:19)
[2020-01-21] MEDS: LEVOTHYROXINE SODIUM 50 MCG TABLET GT SCH (05:05)
[2020-01-21] MEDS: BLOOD SUGAR DIAGNOSTIC 1 EACH STRIP IN SCH ×3 (05:05→21:22)
[2020-01-21] MEDS: INSULIN ASPART/LISPRO 100 UNIT/ML CARTRIDGE SQ PRN ×3 (05:05→21:24)
[2020-01-21] MEDS: OMEPRAZOLE 20 MG CAPSULE.DR GT SCH (05:05)
[2020-01-21] MEDS: PROSOURCE / PROSTAT (PYXIS) 30 ML UDC GT SCH ×3 (08:00→16:24)
[2020-01-21] MEDS: Z GUARD REMEDY 2 OZ OINT TP SCH ×4 (09:00→21:22)
[2020-01-21] MEDS: APIXABAN 5 MG TABLET GT SCH ×2 (09:00→16:24)
[2020-01-21] MEDS: CLOTRIMAZOLE 1% 15 GM TUBE TP SCH ×2 (09:00→21:22)
[2020-01-21] MEDS: FERROUS SULFATE - FOR SA ONLY 330 MG/7.5 ML UDC GT SCH ×3 (09:00→16:24)
[2020-01-21] MEDS: Z GUARD REMEDY 4 OZ OINT TP SCH ×2 (09:00→21:22)
[2020-01-21] MEDS: HYDROGEN PEROXIDE 480 ML BOTTLE TP SCH ×2 (09:00→21:00)
[2020-01-21] MEDS: SIROLIMUS 1 MG GT SCH (09:00)
[2020-01-21] MEDS: KEPPRA 500 MG GT SCH ×2 (09:00→21:21)
[2020-01-21] MEDS: VITS A AND D/WHITE PET/LANOLIN 5 GM PACKET TP SCH ×2 (09:00→21:22)
[2020-01-21] MEDS: SITAGLIPTIN PHOSPHATE 50 MG TABLET GT SCH (09:00)
[2020-01-21 10:36] VITALS: BP 143/93
--- NOTE | 2020-01-21 10:41 | NUR ---
RT pt received on vent with above settings. trached with shiley 8. alarms on and audible. ambu bag at head of bed. spare trach at bedside. pink frothy secretions suctions. notified javad, charge nurse. hob 30 degrees. trach care done. no new orders today. will continue to monitor. Addendum: 01/21/20 at 1044 by JULIET IGNACIO RT Amended: Links added.
[2020-01-21] MEDS: DIGOXIN 0.125 MG TABLET GT SCH (12:33)
[2020-01-21] MEDS: GLUCERNA 1.2 1,000 ML BOTTLE GT PRN (12:34)
[2020-01-21] MEDS: SIMETHICONE 80 MG TAB.CHEW GT PRN (16:51)
--- NOTE | 2020-01-21 16:55 | NUR ---
Pt has temp 100.3 F. Notified JUNIOR SOFTWARE ENGINEER Nadine Taylor. She said she will see pt soon.
--- NOTE | 2020-01-21 17:28 | NUR ---
Seen by ASSISTANT UNIT FORESTER Nadine Taylor. She ordered CBC and BMP. Notified
--- NOTE | 2020-01-21 18:02 | NUR ---
Dr Mak ordered to increase Basaglar Kwikpen from 20 units to 26 units SC q HS. Notified
[2020-01-21 20:18] VITALS: BP 128/82
[2020-01-21 20:44] LABS: CALCIUM, SERUM 9.4 mg/dL (8.5-10.1); CREATININE 1.2 mg/dL (0.6-1.3); POTASSIUM 4.3 mmol/L (3.5-5.1)
[2020-01-21 21:04] LABS: BASOPHILS # (AUTO) 0.1 /CMM (0.0-0.2); BASOPHILS % (AUTO) 0.7 % (0.0-2.0); EOSINOPHILS % (AUTO) 1.5 % (0.0-6.0); HEMATOCRIT 33 % (39-51); HEMOGLOBIN 10.3 g/dL (13.5-17.5); LYMPHOCYTES # (AUTO) 1.1 /CMM (0.8-4.8); LYMPHOCYTES % (AUTO) 14.4 % (20.0-44.0); MEAN CORPUSCULAR HGB CONC 32 g/dl (31.0-36.0); MEAN CORPUSCULAR VOLUME 94 fL (80-96); MONOCYTES % (AUTO) 12.4 % (2.0-12.0); NEUTROPHILS # (AUTO) 5.7 /CMM (1.8-8.9); PLATELET COUNT (AUTO) 165 /CMM (150-450); RED BLOOD CELL COUNT(AUTO) 3.46 MIL/uL (4.5-6.0)
[2020-01-21] MEDS: TAMSULOSIN 0.4 MG CAP.SR.24H GT SCH (21:22)
[2020-01-21] MEDS: LATANOPROST EYE DROP 0.005% 2.5 ML BOTTLE EACHEYE SCH (21:22)
[2020-01-21] MEDS: INSULIN GLARGINE,BASAGLAR 100 UNIT/ML INSULN.PEN SQ SCH (21:22)
--- NOTE | 2020-01-22 00:15 | NUR ---
RN NOTES Blood sugar level 425. Accu check reassessed and obtained BS level 388. Insulin given per sliding scale.
[2020-01-22] MEDS: ALBUTEROL HALF STRENGTH 1.25 MG/3 ML VIAL.NEB NEB SCH ×4 (01:45→19:44)
[2020-01-22] MEDS: BLOOD SUGAR DIAGNOSTIC 1 EACH STRIP IN SCH ×3 (05:40→21:34)
[2020-01-22] MEDS: OMEPRAZOLE 20 MG CAPSULE.DR GT SCH (05:40)
[2020-01-22] MEDS: LEVOTHYROXINE SODIUM 50 MCG TABLET GT SCH (05:40)
[2020-01-22] MEDS: INSULIN ASPART/LISPRO 100 UNIT/ML CARTRIDGE SQ PRN ×3 (05:41→21:38)
[2020-01-22] MEDS: PROSOURCE / PROSTAT (PYXIS) 30 ML UDC GT SCH ×3 (08:00→17:30)
[2020-01-22] MEDS: HYDROGEN PEROXIDE 480 ML BOTTLE TP SCH ×2 (08:15→21:00)
[2020-01-22] MEDS: FERROUS SULFATE - FOR SA ONLY 330 MG/7.5 ML UDC GT SCH ×3 (09:32→17:30)
[2020-01-22] MEDS: APIXABAN 5 MG TABLET GT SCH ×2 (09:32→17:30)
[2020-01-22] MEDS: SIROLIMUS 1 MG GT SCH (09:32)
[2020-01-22] MEDS: SITAGLIPTIN PHOSPHATE 50 MG TABLET GT SCH (09:32)
[2020-01-22] MEDS: KEPPRA 500 MG GT SCH ×2 (09:32→21:34)
[2020-01-22] MEDS: CLOTRIMAZOLE 1% 15 GM TUBE TP SCH ×2 (09:33→21:34)
[2020-01-22] MEDS: VITS A AND D/WHITE PET/LANOLIN 5 GM PACKET TP SCH ×2 (09:33→21:35)
[2020-01-22] MEDS: Z GUARD REMEDY 4 OZ OINT TP SCH ×2 (09:33→21:35)
[2020-01-22] MEDS: Z GUARD REMEDY 2 OZ OINT TP SCH ×4 (09:33→21:35)
[2020-01-22 11:22] VITALS: BP 138/83
[2020-01-22] MEDS: DIGOXIN 0.125 MG TABLET GT SCH (12:58)
[2020-01-22] MEDS: GLUCERNA 1.2 1,000 ML BOTTLE GT PRN (17:30)
--- NOTE | 2020-01-22 18:09 | NUR ---
Seen by Dr Alicea this morning. Received order to place pt on CPAP PSV 15 PEEP +5 FiO2 30% on 01/24/20 and do ABG an hour after vent change. Notified Trevon. Also notified Trevon that did not have a fever today, WBC 8.
[2020-01-22 19:59] VITALS: BP 147/77
[2020-01-22] MEDS: TAMSULOSIN 0.4 MG CAP.SR.24H GT SCH (21:35)
[2020-01-22] MEDS: LATANOPROST EYE DROP 0.005% 2.5 ML BOTTLE EACHEYE SCH (21:35)
[2020-01-22] MEDS: INSULIN GLARGINE,BASAGLAR 100 UNIT/ML INSULN.PEN SQ SCH (21:36)
[2020-01-23] MEDS: ALBUTEROL HALF STRENGTH 1.25 MG/3 ML VIAL.NEB NEB SCH ×4 (02:05→19:49)
[2020-01-23] MEDS: LEVOTHYROXINE SODIUM 50 MCG TABLET GT SCH (05:46)
[2020-01-23] MEDS: OMEPRAZOLE 20 MG CAPSULE.DR GT SCH (05:46)
[2020-01-23] MEDS: BLOOD SUGAR DIAGNOSTIC 1 EACH STRIP IN SCH ×3 (05:46→21:31)
[2020-01-23] MEDS: INSULIN ASPART/LISPRO 100 UNIT/ML CARTRIDGE SQ PRN ×3 (05:47→21:33)
[2020-01-23 07:35] VITALS: BP 101/54
[2020-01-23] MEDS: PROSOURCE / PROSTAT (PYXIS) 30 ML UDC GT SCH ×3 (08:00→17:59)
--- NOTE | 2020-01-23 08:21 | NUR ---
RT NOTE PATIENT REC'D TRACH'D ON MECHANICAL VENT WITH CHARTED SETTINGS. VENT ALARMS ARE ON, SET, AND AUDIBLE. VENT PLUGGED INTO RED OUTLET. AMBU BAG AT BEDSIDE. NO SOB NOTED AT THIS TIME. WILL MONITOR T/O SHIFT. Addendum: 01/23/20 at 0821 by DEVANG BENNETT RT Amended: Links added.
[2020-01-23] MEDS: HYDROGEN PEROXIDE 480 ML BOTTLE TP SCH ×2 (09:00→19:57)
[2020-01-23] MEDS: Z GUARD REMEDY 2 OZ OINT TP SCH ×4 (09:15→21:31)
[2020-01-23] MEDS: APIXABAN 5 MG TABLET GT SCH ×2 (09:15→17:59)
[2020-01-23] MEDS: SIROLIMUS 1 MG GT SCH (09:15)
[2020-01-23] MEDS: CLOTRIMAZOLE 1% 15 GM TUBE TP SCH ×2 (09:15→21:31)
[2020-01-23] MEDS: KEPPRA 500 MG GT SCH ×2 (09:15→21:30)
[2020-01-23] MEDS: FERROUS SULFATE - FOR SA ONLY 330 MG/7.5 ML UDC GT SCH ×3 (09:15→17:59)
[2020-01-23] MEDS: SITAGLIPTIN PHOSPHATE 50 MG TABLET GT SCH (09:15)
[2020-01-23] MEDS: Z GUARD REMEDY 4 OZ OINT TP SCH ×2 (09:15→21:31)
[2020-01-23] MEDS: VITS A AND D/WHITE PET/LANOLIN 5 GM PACKET TP SCH ×2 (09:15→21:31)
[2020-01-23] MEDS: DIGOXIN 0.125 MG TABLET GT SCH (12:31)
--- NOTE | 2020-01-23 16:00 | NUR ---
Notified Dr. Mak to review blood sugar as it has been elevated for the past few days. New order noted from Dr. Mak to increase Basaglar to 32 units. Left a message to rTevon (son) and elvin Duncan (son) of new order.
--- NOTE | 2020-01-23 16:30 | NUR ---
Seen and examined by DIESEL MACHINIST Laura Ocampo, aware that patient with episodes of low grade temperature, NNO given.
[2020-01-23] MEDS: GLUCERNA 1.2 1,000 ML BOTTLE GT PRN (18:00)
[2020-01-23 20:09] VITALS: BP 142/75
--- NOTE | 2020-01-23 20:41 | NUR ---
RT NOTE PT REC'D TRACHED ON MECHANICAL VENTILATION. PT TOLERATING SIMV MODE WELL. AMBU BAG/BACK UP TRACH @ BEDSIDE. TX GIVEN, NO ADVERSE REACTIONS NOTED. SX DONE, TRACH SECURED AND PATENT. ALARMS ON AND AUDIBLE. CONT. PULSE OX CONNECTED. WILL MONITOR. Addendum: 01/23/20 at 2041 by MANNIE ESCAMILLA RT Amended: Links added.
[2020-01-23] MEDS: LATANOPROST EYE DROP 0.005% 2.5 ML BOTTLE EACHEYE SCH (21:31)
[2020-01-23] MEDS: INSULIN GLARGINE,BASAGLAR 100 UNIT/ML INSULN.PEN SQ SCH (21:31)
[2020-01-23] MEDS: TAMSULOSIN 0.4 MG CAP.SR.24H GT SCH (21:31)
[2020-01-24] MEDS: ALBUTEROL HALF STRENGTH 1.25 MG/3 ML VIAL.NEB NEB SCH ×4 (01:40→19:50)
[2020-01-24] MEDS: OMEPRAZOLE 20 MG CAPSULE.DR GT SCH (05:58)
[2020-01-24] MEDS: BLOOD SUGAR DIAGNOSTIC 1 EACH STRIP IN SCH ×3 (05:58→21:08)
[2020-01-24] MEDS: LEVOTHYROXINE SODIUM 50 MCG TABLET GT SCH (05:58)
[2020-01-24] MEDS: INSULIN ASPART/LISPRO 100 UNIT/ML CARTRIDGE SQ PRN ×3 (05:59→21:08)
[2020-01-24 07:28] VITALS: BP 141/85
[2020-01-24] MEDS: PROSOURCE / PROSTAT (PYXIS) 30 ML UDC GT SCH ×3 (08:00→16:48)
--- NOTE | 2020-01-24 08:30 | NUR ---
Notified Dr Alicea that pt has a temp of 99.3 F and HR 93. Asked him if he still wanted to do the weaning trial. He said to try and see how pt will do. Notified RT Lane.
[2020-01-24] MEDS: HYDROGEN PEROXIDE 480 ML BOTTLE TP SCH ×2 (09:00→21:32)
[2020-01-24] MEDS: SIROLIMUS 1 MG GT SCH (09:41)
[2020-01-24] MEDS: CLOTRIMAZOLE 1% 15 GM TUBE TP SCH ×2 (09:41→20:22)
[2020-01-24] MEDS: APIXABAN 5 MG TABLET GT SCH ×2 (09:41→16:47)
[2020-01-24] MEDS: FERROUS SULFATE - FOR SA ONLY 330 MG/7.5 ML UDC GT SCH ×3 (09:41→16:48)
[2020-01-24] MEDS: KEPPRA 500 MG GT SCH ×2 (09:41→20:22)
[2020-01-24] MEDS: SITAGLIPTIN PHOSPHATE 50 MG TABLET GT SCH (09:41)
[2020-01-24] MEDS: Z GUARD REMEDY 4 OZ OINT TP SCH ×2 (09:42→20:22)
[2020-01-24] MEDS: VITS A AND D/WHITE PET/LANOLIN 5 GM PACKET TP SCH ×2 (09:42→20:22)
[2020-01-24] MEDS: Z GUARD REMEDY 2 OZ OINT TP SCH ×4 (09:42→20:22)
--- NOTE | 2020-01-24 09:44 | NUR ---
RT NOTE PATIENT REC'D TRACH'D ON MECHANICAL VENT WITH CHARTED SETTINGS. VENT ALARMS ARE ON, SET, AND AUDIBLE. VENT PLUGGED INTO RED OUTLET. AMBU BAG AT BEDSIDE. NO SOB NOTED AT THIS TIME. WILL MONITOR T/O SHIFT. Addendum: 01/24/20 at 0944 by DEVANG BENNETT RT Amended: Links added.
--- NOTE | 2020-01-24 09:50 | NUR ---
Pt was placed on CPAP by RT Lane. He reported that pt was on CPAP for 5 minutes and pt started having SOB and tachycardia. Notified Dr Alicea. No new order.
[2020-01-24] MEDS: DIGOXIN 0.125 MG TABLET GT SCH (13:04)
[2020-01-24] MEDS: GLUCERNA 1.2 1,000 ML BOTTLE GT PRN (16:48)
[2020-01-24 19:49] VITALS: BP 144/92
[2020-01-24] MEDS: LATANOPROST EYE DROP 0.005% 2.5 ML BOTTLE EACHEYE SCH (21:08)
[2020-01-24] MEDS: TAMSULOSIN 0.4 MG CAP.SR.24H GT SCH (21:08)
[2020-01-24] MEDS: INSULIN GLARGINE,BASAGLAR 100 UNIT/ML INSULN.PEN SQ SCH (21:09)
[2020-01-25] MEDS: ALBUTEROL HALF STRENGTH 1.25 MG/3 ML VIAL.NEB NEB SCH ×4 (02:23→19:35)
[2020-01-25] MEDS: BLOOD SUGAR DIAGNOSTIC 1 EACH STRIP IN SCH ×4 (05:00→23:10)
[2020-01-25] MEDS: LEVOTHYROXINE SODIUM 50 MCG TABLET GT SCH (05:11)
[2020-01-25] MEDS: OMEPRAZOLE 20 MG CAPSULE.DR GT SCH (05:11)
[2020-01-25] MEDS: SIMETHICONE 80 MG TAB.CHEW GT PRN (05:12)
[2020-01-25] MEDS: INSULIN ASPART/LISPRO 100 UNIT/ML CARTRIDGE SQ PRN ×4 (06:48→23:11)
[2020-01-25 07:29] VITALS: BP 104/64
[2020-01-25] MEDS: PROSOURCE / PROSTAT (PYXIS) 30 ML UDC GT SCH ×3 (08:00→17:00)
[2020-01-25] MEDS: HYDROGEN PEROXIDE 480 ML BOTTLE TP SCH ×2 (08:14→21:01)
--- NOTE | 2020-01-25 08:27 | NUR ---
PT RCVD TRACH'D ON MECHANICAL VENT WITH CHARTED SETTINGS. PT DEONDRE TX WELL. SX DONE. PT TRACH IS PATENT AND SECURE. VENT ALARMS ARE ON AND AUDIBLE. VENT PLUGGED INTO RED OUTLET. AMBU BAG AT BEDSIDE. NO SOB NOTED. Addendum: 01/25/20 at 0828 by MAIR GARCIA RT Amended: Links added.
[2020-01-25] MEDS: Z GUARD REMEDY 4 OZ OINT TP SCH ×2 (09:00→20:44)
[2020-01-25] MEDS: FERROUS SULFATE - FOR SA ONLY 330 MG/7.5 ML UDC GT SCH ×3 (09:00→17:00)
[2020-01-25] MEDS: VITS A AND D/WHITE PET/LANOLIN 5 GM PACKET TP SCH ×2 (09:00→20:44)
[2020-01-25] MEDS: KEPPRA 500 MG GT SCH ×2 (09:00→20:44)
[2020-01-25] MEDS: SITAGLIPTIN PHOSPHATE 50 MG TABLET GT SCH (09:00)
[2020-01-25] MEDS: Z GUARD REMEDY 2 OZ OINT TP SCH ×4 (09:00→20:44)
[2020-01-25] MEDS: CLOTRIMAZOLE 1% 15 GM TUBE TP SCH ×2 (09:00→20:44)
[2020-01-25] MEDS: SIROLIMUS 1 MG GT SCH (09:00)
[2020-01-25] MEDS: APIXABAN 5 MG TABLET GT SCH ×2 (09:00→17:00)
--- NOTE | 2020-01-25 10:57 | NUR ---
DELMI called the patient's son, Trevon [phone] to notify him that facetime video calls with their patient are temporarily unavailable until a more secure application can be used. However, the call went to voicemail and DELMI left call back number.
--- NOTE | 2020-01-25 11:30 | NUR ---
Dr. Mak notified that patient's blood sugar remain elevated (above 300) despite increasing Basaglar. New order given to change sliding scale from mild to moderate coverage and FSBS monitoring to Q 6 hours. Orders carried out. Resident's son informed of new order.
--- NOTE | 2020-01-25 12:20 | NUR ---
Seen and examined by Nadine Taylor NP, no new order.
[2020-01-25] MEDS: DIGOXIN 0.125 MG TABLET GT SCH (13:03)
[2020-01-25] MEDS: GLUCERNA 1.2 1,000 ML BOTTLE GT PRN (13:03)
[2020-01-25] MEDS ORDERED: DEXTROSE 50%-WATER 50 ML DISP.SYRIN IV PRN (14:30)
--- NOTE | 2020-01-25 15:55 | NUR ---
INTERDISCIPLINARY PLAN OF CARE CONFERENCE took place today. The patients responsible alliance party/ Trevon Albrecht [phone] was called to participate via phone conference. However, the call went to voicemail and SW left call back number. Charge nurse discussed the patients blood sugar levels have been high and building code administrator to review the patients feeding; 01/24/2020 patient did not tolerate CPAP. Dr. Alicea and Interdisciplinary team discussed the plan of care in detail. Current orders as well as treatments and medications were reviewed. Please see other disciplines IDT notes for further details.
[2020-01-25] MEDS: glipiZIDE 5 MG TABLET PO SCH (17:30)
[2020-01-25 20:00] VITALS: BP 169/78
[2020-01-25] MEDS: LATANOPROST EYE DROP 0.005% 2.5 ML BOTTLE EACHEYE SCH (21:03)
[2020-01-25] MEDS: TAMSULOSIN 0.4 MG CAP.SR.24H GT SCH (21:03)
[2020-01-25] MEDS: INSULIN GLARGINE,BASAGLAR 100 UNIT/ML INSULN.PEN SQ SCH (21:18)
[2020-01-26] MEDS: ALBUTEROL HALF STRENGTH 1.25 MG/3 ML VIAL.NEB NEB SCH ×4 (01:16→20:23)
[2020-01-26] MEDS: GLUCERNA 1.2 1,000 ML BOTTLE GT PRN (05:04)
[2020-01-26] MEDS: LEVOTHYROXINE SODIUM 50 MCG TABLET GT SCH (05:04)
[2020-01-26] MEDS: OMEPRAZOLE 20 MG CAPSULE.DR GT SCH (05:04)
[2020-01-26] MEDS: BLOOD SUGAR DIAGNOSTIC 1 EACH STRIP IN SCH ×4 (05:40→23:37)
[2020-01-26] MEDS: INSULIN ASPART/LISPRO 100 UNIT/ML CARTRIDGE SQ PRN ×4 (05:41→23:37)
[2020-01-26] MEDS: glipiZIDE 5 MG TABLET PO SCH ×2 (07:30→16:36)
[2020-01-26 07:45] VITALS: BP 139/75
[2020-01-26] MEDS: PROSOURCE / PROSTAT (PYXIS) 30 ML UDC GT SCH ×3 (08:00→16:36)
[2020-01-26] MEDS: HYDROGEN PEROXIDE 480 ML BOTTLE TP SCH ×2 (08:29→21:41)
--- NOTE | 2020-01-26 08:36 | NUR ---
PT RCVD TRACH'D ON MECHANICAL VENT WITH CHARTED SETTINGS. PT DEONDRE TX WELL. SX DONE. PT TRACH IS PATENT AND SECURE. VENT ALARMS ARE ON AND AUDIBLE. VENT PLUGGED INTO RED OUTLET. AMBU BAG AT BEDSIDE. NO SOB NOTED. Addendum: 01/26/20 at 0837 by MARI GARCIA RT Amended: Links added.
[2020-01-26] MEDS: APIXABAN 5 MG TABLET GT SCH ×2 (09:00→16:36)
[2020-01-26] MEDS: FERROUS SULFATE - FOR SA ONLY 330 MG/7.5 ML UDC GT SCH ×3 (09:00→16:36)
[2020-01-26] MEDS: Z GUARD REMEDY 4 OZ OINT TP SCH ×2 (09:00→20:14)
[2020-01-26] MEDS: SIROLIMUS 1 MG GT SCH (09:00)
[2020-01-26] MEDS: VITS A AND D/WHITE PET/LANOLIN 5 GM PACKET TP SCH ×2 (09:00→20:14)
[2020-01-26] MEDS: KEPPRA 500 MG GT SCH ×2 (09:00→20:14)
[2020-01-26] MEDS: Z GUARD REMEDY 2 OZ OINT TP SCH ×4 (09:00→20:14)
[2020-01-26] MEDS: SITAGLIPTIN PHOSPHATE 50 MG TABLET GT SCH (09:00)
[2020-01-26] MEDS: CLOTRIMAZOLE 1% 15 GM TUBE TP SCH ×2 (09:00→20:14)
[2020-01-26] MEDS: DIGOXIN 0.125 MG TABLET GT SCH (12:20)
[2020-01-26 20:15] VITALS: BP 135/81
[2020-01-26] MEDS: INSULIN GLARGINE,BASAGLAR 100 UNIT/ML INSULN.PEN SQ SCH (21:00)
--- NOTE | 2020-01-26 21:49 | NUR ---
RT NOTE Pt rec'd trached on [facility] vent on SIMV mode. Pt shows no signs of resp distress or sob. Trach patent and secured. sx'd for thick mod amt of pale yellow secretions. Alarms are set and audible. Vent plugged itno red outlet. Ambu bag bedside. Will continue to monitor. Addendum: 01/26/20 at 2204 by RENATE CHAVEZ RT Amended: Links added.
[2020-01-26] MEDS: TAMSULOSIN 0.4 MG CAP.SR.24H GT SCH (22:00)
[2020-01-26] MEDS: LATANOPROST EYE DROP 0.005% 2.5 ML BOTTLE EACHEYE SCH (22:00)
[2020-01-27] MEDS: ALBUTEROL HALF STRENGTH 1.25 MG/3 ML VIAL.NEB NEB SCH ×4 (00:43→19:28)
[2020-01-27] MEDS: OMEPRAZOLE 20 MG CAPSULE.DR GT SCH (05:19)
[2020-01-27] MEDS: LEVOTHYROXINE SODIUM 50 MCG TABLET GT SCH (05:19)
[2020-01-27] MEDS: BLOOD SUGAR DIAGNOSTIC 1 EACH STRIP IN SCH ×3 (05:19→18:22)
[2020-01-27] MEDS: GLUCERNA 1.2 1,000 ML BOTTLE GT PRN ×2 (05:20→21:29)
[2020-01-27] MEDS: INSULIN ASPART/LISPRO 100 UNIT/ML CARTRIDGE SQ PRN ×3 (05:20→18:24)
[2020-01-27 07:23] VITALS: BP 144/74
[2020-01-27] MEDS: glipiZIDE 5 MG TABLET PO SCH ×2 (07:30→16:55)
[2020-01-27] MEDS: PROSOURCE / PROSTAT (PYXIS) 30 ML UDC GT SCH ×3 (08:00→16:56)
[2020-01-27] MEDS: CLOTRIMAZOLE 1% 15 GM TUBE TP SCH ×2 (09:00→20:18)
[2020-01-27] MEDS: HYDROGEN PEROXIDE 480 ML BOTTLE TP SCH ×2 (09:00→21:10)
[2020-01-27] MEDS: Z GUARD REMEDY 2 OZ OINT TP SCH ×4 (09:17→20:18)
[2020-01-27] MEDS: SIROLIMUS 1 MG GT SCH (09:17)
[2020-01-27] MEDS: APIXABAN 5 MG TABLET GT SCH ×2 (09:17→16:55)
[2020-01-27] MEDS: KEPPRA 500 MG GT SCH ×2 (09:17→20:18)
[2020-01-27] MEDS: SITAGLIPTIN PHOSPHATE 50 MG TABLET GT SCH (09:17)
[2020-01-27] MEDS: FERROUS SULFATE - FOR SA ONLY 330 MG/7.5 ML UDC GT SCH ×3 (09:17→16:56)
[2020-01-27] MEDS: VITS A AND D/WHITE PET/LANOLIN 5 GM PACKET TP SCH ×2 (09:18→20:18)
[2020-01-27] MEDS: Z GUARD REMEDY 4 OZ OINT TP SCH ×2 (09:18→20:18)
[2020-01-27] MEDS: DIGOXIN 0.125 MG TABLET GT SCH (13:00)
--- NOTE | 2020-01-27 16:13 | NUR ---
While DYE RANGE FEEDER was performing pm care, noticed midline pulled out, midline not in place, midline was underneath patients arm, no bleeding at the site, will obtain an order to D/C right upper arm midline, d/c flush with 10ml of NS, d/c dressing change every 7 days, order carried out, and family member made aware.
[2020-01-27 20:16] VITALS: BP 141/70
[2020-01-27] MEDS: LATANOPROST EYE DROP 0.005% 2.5 ML BOTTLE EACHEYE SCH (21:34)
[2020-01-27] MEDS: TAMSULOSIN 0.4 MG CAP.SR.24H GT SCH (21:34)
[2020-01-27] MEDS: INSULIN GLARGINE,BASAGLAR 100 UNIT/ML INSULN.PEN SQ SCH (21:35)
[2020-01-28] MEDS: BLOOD SUGAR DIAGNOSTIC 1 EACH STRIP IN SCH ×5 (00:54→23:56)
[2020-01-28] MEDS: INSULIN ASPART/LISPRO 100 UNIT/ML CARTRIDGE SQ PRN ×5 (00:55→23:58)
[2020-01-28] MEDS: ALBUTEROL HALF STRENGTH 1.25 MG/3 ML VIAL.NEB NEB SCH ×3 (01:41→12:34)
[2020-01-28] MEDS: OMEPRAZOLE 20 MG CAPSULE.DR GT SCH (05:06)
[2020-01-28] MEDS: LEVOTHYROXINE SODIUM 50 MCG TABLET GT SCH (05:06)
[2020-01-28] MEDS: glipiZIDE 5 MG TABLET PO SCH ×2 (07:30→17:23)
[2020-01-28 07:49] VITALS: BP 128/91
[2020-01-28] MEDS: PROSOURCE / PROSTAT (PYXIS) 30 ML UDC GT SCH ×3 (08:00→17:00)
[2020-01-28] MEDS: HYDROGEN PEROXIDE 480 ML BOTTLE TP SCH ×2 (08:16→22:41)
--- NOTE | 2020-01-28 08:22 | NUR ---
PT RCVD TRACH'D ON MECHANICAL VENT WITH CHARTED SETTINGS. PT DEONDRE TX WELL. SX DONE. PT TRACH IS PATENT AND SECURE. VENT ALARMS ARE ON AND AUDIBLE. VENT PLUGGED INTO RED OUTLET. AMBU BAG AT BEDSIDE. NO SOB NOTED. Addendum: 01/28/20 at 0822 by MARI GARCIA RT Amended: Links added.
[2020-01-28] MEDS: APIXABAN 5 MG TABLET GT SCH ×2 (09:00→17:00)
[2020-01-28] MEDS: CLOTRIMAZOLE 1% 15 GM TUBE TP SCH ×2 (09:00→20:05)
[2020-01-28] MEDS: Z GUARD REMEDY 2 OZ OINT TP SCH ×4 (09:00→20:05)
[2020-01-28] MEDS: Z GUARD REMEDY 4 OZ OINT TP SCH ×2 (09:00→20:05)
[2020-01-28] MEDS: KEPPRA 500 MG GT SCH ×2 (09:00→20:04)
[2020-01-28] MEDS: FERROUS SULFATE - FOR SA ONLY 330 MG/7.5 ML UDC GT SCH ×3 (09:00→17:00)
[2020-01-28] MEDS: SITAGLIPTIN PHOSPHATE 50 MG TABLET GT SCH (09:00)
[2020-01-28] MEDS: VITS A AND D/WHITE PET/LANOLIN 5 GM PACKET TP SCH ×2 (09:00→20:05)
[2020-01-28] MEDS: SIROLIMUS 1 MG GT SCH (09:00)
[2020-01-28] MEDS: DIGOXIN 0.125 MG TABLET GT SCH (13:00)
--- NOTE | 2020-01-28 13:30 | NUR ---
Received order from Dr Hood to increase Basaglar kwikpen from 32 units to 36 units WI q HS. Notified Trevon.
--- NOTE | 2020-01-28 18:21 | NUR ---
Seen by LENKA Taylor today. Received order to give breathing treatments q 6 hours PRN only. Notified Trevon.
[2020-01-28 20:01] VITALS: BP 132/71
[2020-01-28] MEDS: TAMSULOSIN 0.4 MG CAP.SR.24H GT SCH (21:45)
[2020-01-28] MEDS: LATANOPROST EYE DROP 0.005% 2.5 ML BOTTLE EACHEYE SCH (21:45)
[2020-01-28] MEDS: INSULIN GLARGINE,BASAGLAR 100 UNIT/ML INSULN.PEN SQ SCH (21:47)
--- NOTE | 2020-01-29 03:18 | NUR ---
RT Pt trach remains on the [facility] settings t/o the shift. Trach secure and patent. Addendum: 01/29/20 at 0318 by LUZ GALLEGOS RT Amended: Links added.
[2020-01-29] MEDS: OMEPRAZOLE 20 MG CAPSULE.DR GT SCH (05:02)
[2020-01-29] MEDS: LEVOTHYROXINE SODIUM 50 MCG TABLET GT SCH (05:02)
[2020-01-29] MEDS: BLOOD SUGAR DIAGNOSTIC 1 EACH STRIP IN SCH ×3 (05:02→17:42)
[2020-01-29] MEDS: INSULIN ASPART/LISPRO 100 UNIT/ML CARTRIDGE SQ PRN ×3 (05:04→17:44)
[2020-01-29] MEDS: ACETAMINOPHEN 650 MG/20 ML UDC- SA PATIENTS-PAIN ONLY GT PRN (05:21)
[2020-01-29 07:30] VITALS: BP 119/64
[2020-01-29] MEDS: glipiZIDE 5 MG TABLET PO SCH ×2 (07:30→17:29)
[2020-01-29] MEDS: PROSOURCE / PROSTAT (PYXIS) 30 ML UDC GT SCH ×3 (08:42→17:31)
[2020-01-29] MEDS: APIXABAN 5 MG TABLET GT SCH ×2 (08:43→17:30)
[2020-01-29] MEDS: KEPPRA 500 MG GT SCH ×2 (08:43→20:02)
[2020-01-29] MEDS: SITAGLIPTIN PHOSPHATE 50 MG TABLET GT SCH (08:43)
[2020-01-29] MEDS: SIROLIMUS 1 MG GT SCH (08:43)
[2020-01-29] MEDS: FERROUS SULFATE - FOR SA ONLY 330 MG/7.5 ML UDC GT SCH ×3 (08:43→17:31)
[2020-01-29] MEDS: Z GUARD REMEDY 4 OZ OINT TP SCH ×2 (08:45→20:03)
[2020-01-29] MEDS: CLOTRIMAZOLE 1% 15 GM TUBE TP SCH ×2 (08:45→20:03)
[2020-01-29] MEDS: Z GUARD REMEDY 2 OZ OINT TP SCH ×4 (08:45→20:03)
[2020-01-29] MEDS: VITS A AND D/WHITE PET/LANOLIN 5 GM PACKET TP SCH ×2 (08:45→20:04)
[2020-01-29] MEDS: HYDROGEN PEROXIDE 480 ML BOTTLE TP SCH ×2 (09:00→21:10)
[2020-01-29] MEDS: DIGOXIN 0.125 MG TABLET GT SCH (13:35)
--- NOTE | 2020-01-29 19:00 | NUR ---
Received order to decrease G-tube feeding Glucerna 1.2 from 60 to 55 mL/hr x 20 hours a day, Prostat from TID to BID per dietary recommendation. Notified Trevon.
[2020-01-29 21:03] VITALS: BP 124/90
[2020-01-29] MEDS: TAMSULOSIN 0.4 MG CAP.SR.24H GT SCH (21:10)
[2020-01-29] MEDS: LATANOPROST EYE DROP 0.005% 2.5 ML BOTTLE EACHEYE SCH (21:10)
[2020-01-29] MEDS: INSULIN GLARGINE,BASAGLAR 100 UNIT/ML INSULN.PEN SQ SCH (21:11)
[2020-01-30] MEDS: BLOOD SUGAR DIAGNOSTIC 1 EACH STRIP IN SCH ×5 (00:33→23:35)
[2020-01-30] MEDS: INSULIN ASPART/LISPRO 100 UNIT/ML CARTRIDGE SQ PRN ×5 (00:34→23:38)
[2020-01-30] MEDS: GLUCERNA 1.2 1,000 ML BOTTLE GT PRN (04:59)
[2020-01-30] MEDS: LEVOTHYROXINE SODIUM 50 MCG TABLET GT SCH (05:02)
[2020-01-30] MEDS: OMEPRAZOLE 20 MG CAPSULE.DR GT SCH (05:02)
[2020-01-30] MEDS: glipiZIDE 5 MG TABLET PO SCH ×2 (07:30→16:30)
[2020-01-30] MEDS: HYDROGEN PEROXIDE 480 ML BOTTLE TP SCH ×2 (08:21→21:00)
[2020-01-30] MEDS: PROSOURCE / PROSTAT (PYXIS) 30 ML UDC GT SCH ×2 (08:51→17:39)
[2020-01-30] MEDS: CLOTRIMAZOLE 1% 15 GM TUBE TP SCH ×2 (09:09→21:26)
[2020-01-30] MEDS: SITAGLIPTIN PHOSPHATE 50 MG TABLET GT SCH (09:09)
[2020-01-30] MEDS: Z GUARD REMEDY 2 OZ OINT TP SCH ×4 (09:09→21:26)
[2020-01-30] MEDS: APIXABAN 5 MG TABLET GT SCH ×2 (09:09→17:39)
[2020-01-30] MEDS: SIROLIMUS 1 MG GT SCH (09:09)
[2020-01-30] MEDS: KEPPRA 500 MG GT SCH ×2 (09:09→21:26)
[2020-01-30] MEDS: FERROUS SULFATE - FOR SA ONLY 330 MG/7.5 ML UDC GT SCH ×3 (09:09→17:39)
[2020-01-30] MEDS: Z GUARD REMEDY 4 OZ OINT TP SCH ×2 (09:09→21:26)
[2020-01-30] MEDS: VITS A AND D/WHITE PET/LANOLIN 5 GM PACKET TP SCH ×2 (09:10→21:27)
--- NOTE | 2020-01-30 09:10 | NUR ---
PT RCVD TRACH'D ON MECHANICAL VENT WITH CHARTED SETTINGS. PT DEONDRE TX WELL. SX DONE. PT TRACH IS PATENT AND SECURE. VENT ALARMS ARE ON AND AUDIBLE. VENT PLUGGED INTO RED OUTLET. AMBU BAG AT BEDSIDE. NO SOB NOTED. Addendum: 01/30/20 at 0910 by MARI GARCIA RT Amended: Links added. Addendum: 01/30/20 at 0912 by MARI GARCIA RT CORRECT NOTE PT RCVD TRACH'D ON MECHANICAL VENT WITH CHARTED SETTINGS. SX DONE. PT TRACH IS PATENT AND SECURE. VENT ALARMS ARE ON AND AUDIBLE. VENT PLUGGED INTO RED OUTLET. AMBU BAG AT BEDSIDE. NO SOB NOTED.
--- NOTE | 2020-01-30 09:30 | NUR ---
Seen and examined by Dr. Hood, reported patient's blood sugar still running high. He said he will review current orders.
[2020-01-30 11:59] VITALS: BP 108/56
[2020-01-30] MEDS: DIGOXIN 0.125 MG TABLET GT SCH (12:16)
[2020-01-30 21:06] VITALS: BP 167/80
[2020-01-30] MEDS: LATANOPROST EYE DROP 0.005% 2.5 ML BOTTLE EACHEYE SCH (21:27)
[2020-01-30] MEDS: TAMSULOSIN 0.4 MG CAP.SR.24H GT SCH (21:27)
[2020-01-30] MEDS: INSULIN GLARGINE,BASAGLAR 100 UNIT/ML INSULN.PEN SQ SCH (21:27)
[2020-01-30] MEDS: ACETAMINOPHEN 650 MG/20 ML UDC- SA PATIENTS-PAIN ONLY GT PRN (22:57)
[2020-01-30] MEDS: SIMETHICONE 80 MG TAB.CHEW GT PRN (22:57)
[2020-01-31] MEDS: LEVOTHYROXINE SODIUM 50 MCG TABLET GT SCH (05:30)
[2020-01-31] MEDS: GLUCERNA 1.2 1,000 ML BOTTLE GT PRN (05:30)
[2020-01-31] MEDS: OMEPRAZOLE 20 MG CAPSULE.DR GT SCH (05:30)
[2020-01-31] MEDS: BLOOD SUGAR DIAGNOSTIC 1 EACH STRIP IN SCH ×3 (05:30→17:25)
[2020-01-31] MEDS: INSULIN ASPART/LISPRO 100 UNIT/ML CARTRIDGE SQ PRN ×3 (05:31→17:29)
[2020-01-31 07:19] VITALS: BP 125/62
[2020-01-31 07:39] LABS: BASOPHILS # (AUTO) 0.1 /CMM (0.0-0.2); BASOPHILS % (AUTO) 1.3 % (0.0-2.0); EOSINOPHILS % (AUTO) 0.8 % (0.0-6.0); HEMATOCRIT 29 % (39-51); HEMOGLOBIN 9.4 g/dL (13.5-17.5); LYMPHOCYTES # (AUTO) 1.2 /CMM (0.8-4.8); LYMPHOCYTES % (AUTO) 10.3 % (20.0-44.0); MEAN CORPUSCULAR HGB CONC 32 g/dl (31.0-36.0); MEAN CORPUSCULAR VOLUME 90 fL (80-96); MONOCYTES # (AUTO) 0.9 /CMM (0.1-1.30); MONOCYTES % (AUTO) 7.5 % (2.0-12.0); NEUTROPHILS # (AUTO) 9.3 /CMM (1.8-8.9); NEUTROPHILS % (AUTO) 80.1 % (43.0-81.0); PLATELET COUNT (AUTO) 136 /CMM (150-450); RED BLOOD CELL COUNT(AUTO) 3.23 MIL/uL (4.5-6.0); WHITE BLOOD COUNT (AUTO) 11.6 K/uL (4.3-11.0)
[2020-01-31] MEDS: glipiZIDE 5 MG TABLET PO SCH ×2 (07:45→16:39)
[2020-01-31 08:06] LABS: ALANINE AMINOTRANSFERASE 67 U/L (12-78); ALBUMIN 2.7 g/dL (3.4-5.0); ALKALINE PHOSPHATASE 95 U/L (46-116); ASPARTATE AMINOTRANSFERASE 76 U/L (15-37); BILIRUBIN,TOTAL 0.8 mg/dL (0.2-1.0); CALCIUM, SERUM 9.3 mg/dL (8.5-10.1); CARBON DIOXIDE 29 mmol/L (21-32); CHLORIDE 98 mmol/L (98-107); CREATININE 1.5 mg/dL (0.6-1.3); GLUCOSE 226 mg/dL (74-106); MAGNESIUM 2.9 mg/dL (1.8-2.4); POTASSIUM 4.1 mmol/L (3.5-5.1); SODIUM SERUM 136 mmol/L (136-145); TOTAL PROTEIN, SERUM 7.7 g/dL (6.4-8.2); UREA NITROGEN, BLOOD 35 mg/dL (7-18)
[2020-01-31] MEDS: FERROUS SULFATE - FOR SA ONLY 330 MG/7.5 ML UDC GT SCH ×3 (08:07→16:39)
[2020-01-31] MEDS: PROSOURCE / PROSTAT (PYXIS) 30 ML UDC GT SCH ×2 (08:07→16:39)
[2020-01-31] MEDS: Z GUARD REMEDY 2 OZ OINT TP SCH ×4 (08:09→21:18)
[2020-01-31] MEDS: Z GUARD REMEDY 4 OZ OINT TP SCH ×2 (08:09→21:18)
[2020-01-31] MEDS: SIROLIMUS 1 MG GT SCH (08:09)
[2020-01-31] MEDS: SITAGLIPTIN PHOSPHATE 50 MG TABLET GT SCH (08:09)
[2020-01-31] MEDS: APIXABAN 5 MG TABLET GT SCH ×2 (08:09→17:25)
[2020-01-31] MEDS: CLOTRIMAZOLE 1% 15 GM TUBE TP SCH ×2 (08:09→21:18)
[2020-01-31] MEDS: KEPPRA 500 MG GT SCH ×2 (08:09→21:18)
[2020-01-31] MEDS: VITS A AND D/WHITE PET/LANOLIN 5 GM PACKET TP SCH ×2 (08:09→21:18)
[2020-01-31] MEDS: HYDROGEN PEROXIDE 480 ML BOTTLE TP SCH ×2 (09:40→21:00)
[2020-01-31 09:45] LABS: EOSINOPHILS % (MANUAL) 1 % (0-4); LYMPHOCYTES % (MANUAL) 6 % (16-48); MONOCYTES % (MANUAL) 5 % (0-11.0); NEUTROPHILS % (MANUAL) 88 (42-76)
[2020-01-31] MEDS: DIGOXIN 0.125 MG TABLET GT SCH (12:10)
--- NOTE | 2020-01-31 12:14 | NUR ---
HELD DIGOXIN AP:65
--- NOTE | 2020-01-31 19:40 | NUR ---
RT NOTE PT REC'D TRACHED ON MECHANICAL VENTILATION. PT TOLERATING SIMV MODE WELL. AMBU BAG/BACK UP TRACH @ BEDSIDE. SX DONE, TRACH SECURED AND PATENT. ALARMS ON AND AUDIBLE. CONT. PULSE OX CONNECTED. WILL MONITOR. Addendum: 01/31/20 at 1942 by MATHEW RICHARDS RT Amended: Links added.
[2020-01-31 20:15] VITALS: BP 107/55
[2020-01-31] MEDS: TAMSULOSIN 0.4 MG CAP.SR.24H GT SCH (21:18)
[2020-01-31] MEDS: LATANOPROST EYE DROP 0.005% 2.5 ML BOTTLE EACHEYE SCH (21:18)
[2020-01-31] MEDS: INSULIN GLARGINE,BASAGLAR 100 UNIT/ML INSULN.PEN SQ SCH (22:18)
[2020-02-01] MEDS: BLOOD SUGAR DIAGNOSTIC 1 EACH STRIP IN SCH ×5 (00:47→23:27)
[2020-02-01] MEDS: INSULIN ASPART/LISPRO 100 UNIT/ML CARTRIDGE SQ PRN ×5 (00:48→23:28)
[2020-02-01] MEDS: GLUCERNA 1.2 1,000 ML BOTTLE GT PRN (00:49)
[2020-02-01] MEDS: OMEPRAZOLE 20 MG CAPSULE.DR GT SCH (06:11)
[2020-02-01] MEDS: LEVOTHYROXINE SODIUM 50 MCG TABLET GT SCH (06:11)
[2020-02-01 07:18] VITALS: BP 126/57
[2020-02-01] MEDS: glipiZIDE 5 MG TABLET PO SCH ×2 (07:30→16:37)
[2020-02-01] MEDS: PROSOURCE / PROSTAT (PYXIS) 30 ML UDC GT SCH (08:45)
[2020-02-01] MEDS: APIXABAN 5 MG TABLET GT SCH ×2 (08:46→16:38)
[2020-02-01] MEDS: FERROUS SULFATE - FOR SA ONLY 330 MG/7.5 ML UDC GT SCH ×3 (08:46→16:38)
[2020-02-01] MEDS: KEPPRA 500 MG GT SCH ×2 (08:47→20:52)
[2020-02-01] MEDS: Z GUARD REMEDY 4 OZ OINT TP SCH ×2 (08:47→20:52)
[2020-02-01] MEDS: SITAGLIPTIN PHOSPHATE 50 MG TABLET GT SCH (08:47)
[2020-02-01] MEDS: VITS A AND D/WHITE PET/LANOLIN 5 GM PACKET TP SCH ×2 (08:47→20:52)
[2020-02-01] MEDS: SIROLIMUS 1 MG GT SCH (08:47)
--- NOTE | 2020-02-01 09:40 | NUR ---
Relayed CBC and CMP result on 01/31/20 with BUN 35, Creat 1.5, WBC 11.6., resident with low grade temperature 99.2 Awaiting for orders.
[2020-02-01] MEDS: HYDROGEN PEROXIDE 480 ML BOTTLE TP SCH ×2 (09:47→21:00)
[2020-02-01] MEDS: Z GUARD REMEDY 2 OZ OINT TP SCH ×4 (11:00→20:52)
[2020-02-01] MEDS: CLOTRIMAZOLE 1% 15 GM TUBE TP SCH ×2 (11:00→20:52)
[2020-02-01] MEDS: DIGOXIN 0.125 MG TABLET GT SCH (12:50)
--- NOTE | 2020-02-01 13:35 | NUR ---
Notified resident's son, Trevon of patient's lab results with BUN 3, Creat 1.5 and WBC of 11.6, Informed family of the intervention ordered by MD. He said that when the patient is at the previous facility his BS never go up more than 160 mg/dl. but when he was admitted at [facility], his BS started to go up. He said that patient has been taking the same medication and the only difference is the tube feeding formula. According to patient's son, resident is on Diabetisource at the other facility. Informed family that will speak with supervisor payroll if formula can be specially ordered. Patient is currently on Glucerna which is equivalent to Diabetisource. Spoke with Keren from food and nutrition department and expressed concern by family regarding consistently elevated blood sugar. Escalated family concern with nurse strategic accounts manager and supervisor payroll.
--- NOTE | 2020-02-01 13:40 | NUR ---
Informed Dr. Hood of family's concern and dietary recommendation to decrease current feeding rate to 50cc/hr and DC Prostat 30 ml. via GT BID. Informed MD that feeding formula will be changed to Diabetisource once it is delivered. Cash Analyst will evaluate patient's tolerance 48-72hours after starting Diabetisource. Prostat also DCed. MD in agreement.
[2020-02-01 14:24] LABS: APPEARANCE,URINE CLEAR (CLEAR); BILIRUBIN,URINE NEGATIVE (NEGATIVE); BLOOD, URINE TRACE-INTA Ery/uL (NEGATIVE); COLOR,URINE YELLOW (YELLOW); KETONES,URINE NEGATIVE (NEGATIVE); LEUKOCYTE ESTERASE ,URINE NEGATIVE (NEGATIVE); NITRITE, URINE NEGATIVE (NEGATIVE); PROTEIN,URINE 100 mg/dl (NEGATIVE); UGLUCOSE 100 MG/DL mg/dL (NEGATIVE)
[2020-02-01 14:27] LABS: CREATININE, URINE 61.9 MG/DL (30.0-125.0); URINE TOTAL PROTEIN 185.6 mg/dL (0-11.9)
[2020-02-01] MEDS ORDERED: GLUCERNA 1.2 1,000 ML BOTTLE GT PRN (14:30)
[2020-02-01 14:39] LABS: BACTERIA,URINE Few /HPF (None Seen); SQUAMOUS EPITHELIAL CELL,UR Moderate /HPF (None Seen); WBC,URINE 0-2 /HPF (0-3)
[2020-02-01 15:31] LABS: EOSINOPHIL,URINE None Seen
--- NOTE | 2020-02-01 16:00 | NUR ---
Seen and examined by SHINGLER Clementina Taylor, made aware that patient has been running low grade temperature. She reviewed UA result, which is negative. According to SHINGLER she will order procalcitonin level.
[2020-02-01 21:02] VITALS: BP 120/60
[2020-02-01] MEDS: INSULIN DETEMIR 100 UNIT/ML CARTRIDGE SQ SCH (21:26)
[2020-02-01] MEDS: TAMSULOSIN 0.4 MG CAP.SR.24H GT SCH (21:26)
[2020-02-01] MEDS: LATANOPROST EYE DROP 0.005% 2.5 ML BOTTLE EACHEYE SCH (21:26)
[2020-02-01] MEDS ORDERED: INSULIN GLARGINE,BASAGLAR 100 UNIT/ML INSULN.PEN SQ SCH (22:00)
[2020-02-01] MEDS: SIMETHICONE 80 MG TAB.CHEW GT PRN (23:29)
[2020-02-01] MEDS: IV NS 0.9% 1,000 ML IV PRN (23:30)
[2020-02-02] MEDS: LEVOTHYROXINE SODIUM 50 MCG TABLET GT SCH (05:28)
[2020-02-02] MEDS: BLOOD SUGAR DIAGNOSTIC 1 EACH STRIP IN SCH ×4 (05:28→23:15)
[2020-02-02] MEDS: OMEPRAZOLE 20 MG CAPSULE.DR GT SCH (05:28)
[2020-02-02] MEDS: INSULIN ASPART/LISPRO 100 UNIT/ML CARTRIDGE SQ PRN ×4 (05:29→23:16)
[2020-02-02] MEDS: IV NS 0.9% 1,000 ML IV PRN (06:17)
[2020-02-02] MEDS: glipiZIDE 5 MG TABLET PO SCH ×2 (07:30→17:00)
[2020-02-02 07:47] VITALS: BP 118/68
[2020-02-02] MEDS: HYDROGEN PEROXIDE 480 ML BOTTLE TP SCH ×2 (09:00→21:40)
[2020-02-02 09:12] LABS: HEMATOCRIT 28 % (39-51); MEAN CORPUSCULAR HGB CONC 33 g/dl (31.0-36.0); MEAN CORPUSCULAR VOLUME 89 fL (80-96); RED BLOOD CELL COUNT(AUTO) 3.08 MIL/uL (4.5-6.0); WHITE BLOOD COUNT (AUTO) 7.4 K/uL (4.3-11.0)
[2020-02-02 09:13] LABS: BASOPHILS % (AUTO) 0.4 % (0.0-2.0); EOSINOPHILS % (AUTO) 3.2 % (0.0-6.0); LYMPHOCYTES # (AUTO) 1.2 /CMM (0.8-4.8); LYMPHOCYTES % (AUTO) 15.9 % (20.0-44.0); MONOCYTES # (AUTO) 0.8 /CMM (0.1-1.30); MONOCYTES % (AUTO) 10.5 % (2.0-12.0); NEUTROPHILS # (AUTO) 5.2 /CMM (1.8-8.9); PLATELET COUNT (AUTO) 176 /CMM (150-450)
[2020-02-02 09:28] LABS: ALBUMIN 2.4 g/dL (3.4-5.0); BILIRUBIN,TOTAL 0.7 mg/dL (0.2-1.0); CALCIUM, SERUM 8.6 mg/dL (8.5-10.1); CREATININE 1.2 mg/dL (0.6-1.3); MAGNESIUM 2.6 mg/dL (1.8-2.4); PHOSPHORUS 2.8 mg/dL (2.5-4.9); POTASSIUM 4.1 mmol/L (3.5-5.1); TOTAL PROTEIN, SERUM 7.5 g/dL (6.4-8.2)
[2020-02-02] MEDS: APIXABAN 5 MG TABLET GT SCH ×2 (09:37→17:12)
[2020-02-02] MEDS: CLOTRIMAZOLE 1% 15 GM TUBE TP SCH ×2 (09:38→20:10)
[2020-02-02] MEDS: FERROUS SULFATE - FOR SA ONLY 330 MG/7.5 ML UDC GT SCH ×3 (09:38→17:12)
[2020-02-02] MEDS: Z GUARD REMEDY 4 OZ OINT TP SCH ×2 (09:38→20:10)
[2020-02-02] MEDS: SIROLIMUS 1 MG GT SCH (09:38)
[2020-02-02] MEDS: Z GUARD REMEDY 2 OZ OINT TP SCH ×4 (09:38→20:10)
[2020-02-02] MEDS: KEPPRA 500 MG GT SCH ×2 (09:38→20:10)
[2020-02-02] MEDS: SITAGLIPTIN PHOSPHATE 50 MG TABLET GT SCH (09:38)
[2020-02-02] MEDS: VITS A AND D/WHITE PET/LANOLIN 5 GM PACKET TP SCH ×2 (09:39→20:10)
[2020-02-02] MEDS: DIGOXIN 0.125 MG TABLET GT SCH (12:31)
--- NOTE | 2020-02-02 13:00 | NUR ---
Seen and examined by Maria Del Rosario Ocampo, LENKA reviewed lab result, NNO given at this time. Spoke with Bhupendra from laboratory inquiring the result of Sirolimus trough level, he said he will take a look at it. Endorsed.
--- NOTE | 2020-02-02 15:09 | NUR ---
RT NOTE: PATIENT RECEIVED TRACH ON MECHANICAL VENT. ALARMS VERIFIED AND AUDIBLE. VENT PLUGGED INTO RED OUTLET. AMBU BAG AT [facility].
--- NOTE | 2020-02-02 17:00 | NUR ---
Spoke with wallcovering texturer Cathryn regarding the new tube feeding formula (Diabetisource), she recommended to start patient with the same rate and will evaluate it after 72 hours. Patient's blood sugar has been < 200 for the past 24 hours.
[2020-02-02] MEDS: DIABETISOURCE GT PRN (18:25)
[2020-02-02 20:03] VITALS: BP 142/70
[2020-02-02] MEDS: TAMSULOSIN 0.4 MG CAP.SR.24H GT SCH (21:11)
[2020-02-02] MEDS: INSULIN DETEMIR 100 UNIT/ML CARTRIDGE SQ SCH (21:11)
[2020-02-02] MEDS: LATANOPROST EYE DROP 0.005% 2.5 ML BOTTLE EACHEYE SCH (21:11)
[2020-02-02] MEDS: SIMETHICONE 80 MG TAB.CHEW GT PRN (23:16)
[2020-02-03] MEDS: LEVOTHYROXINE SODIUM 50 MCG TABLET GT SCH (05:08)
[2020-02-03] MEDS: OMEPRAZOLE 20 MG CAPSULE.DR GT SCH (05:08)
[2020-02-03] MEDS: BLOOD SUGAR DIAGNOSTIC 1 EACH STRIP IN SCH ×3 (05:08→17:56)
[2020-02-03] MEDS: INSULIN ASPART/LISPRO 100 UNIT/ML CARTRIDGE SQ PRN ×3 (05:09→18:02)
[2020-02-03] MEDS: glipiZIDE 5 MG TABLET PO SCH ×2 (07:30→17:22)
[2020-02-03 07:39] VITALS: BP 129/72
[2020-02-03] MEDS: HYDROGEN PEROXIDE 480 ML BOTTLE TP SCH ×2 (09:00→21:00)
--- NOTE | 2020-02-03 09:00 | NUR ---
Seen and examined by Dr. Hood, no new order given.
[2020-02-03] MEDS: APIXABAN 5 MG TABLET GT SCH ×2 (09:02→17:22)
[2020-02-03] MEDS: FERROUS SULFATE - FOR SA ONLY 330 MG/7.5 ML UDC GT SCH ×3 (09:02→17:23)
[2020-02-03] MEDS: SIROLIMUS 1 MG GT SCH (09:07)
[2020-02-03] MEDS: KEPPRA 500 MG GT SCH ×2 (09:07→20:02)
[2020-02-03] MEDS: Z GUARD REMEDY 4 OZ OINT TP SCH ×2 (09:07→20:03)
[2020-02-03] MEDS: CLOTRIMAZOLE 1% 15 GM TUBE TP SCH ×2 (09:07→20:02)
[2020-02-03] MEDS: Z GUARD REMEDY 2 OZ OINT TP SCH ×4 (09:07→20:02)
[2020-02-03] MEDS: SITAGLIPTIN PHOSPHATE 50 MG TABLET GT SCH (09:07)
[2020-02-03] MEDS: VITS A AND D/WHITE PET/LANOLIN 5 GM PACKET TP SCH ×2 (09:08→20:03)
[2020-02-03] MEDS: DIGOXIN 0.125 MG TABLET GT SCH (13:00)
[2020-02-03] MEDS: DIABETISOURCE GT PRN (17:25)
[2020-02-03 20:16] VITALS: BP 155/71
[2020-02-03] MEDS: LATANOPROST EYE DROP 0.005% 2.5 ML BOTTLE EACHEYE SCH (22:10)
[2020-02-03] MEDS: TAMSULOSIN 0.4 MG CAP.SR.24H GT SCH (22:10)
[2020-02-03] MEDS: INSULIN DETEMIR 100 UNIT/ML CARTRIDGE SQ SCH (22:11)
[2020-02-04] MEDS: BLOOD SUGAR DIAGNOSTIC 1 EACH STRIP IN SCH ×5 (00:14→23:41)
[2020-02-04] MEDS: INSULIN ASPART/LISPRO 100 UNIT/ML CARTRIDGE SQ PRN ×5 (00:15→23:42)
--- NOTE | 2020-02-04 02:00 | NUR ---
RN NOTES Noted pt with difficulty breathing, with episodes of apnea. Desaturating to 89%, suctioned and increased oxygenation. Breathing improved, O2sat increased to 99%. Will continue to monitor.
[2020-02-04] MEDS: OMEPRAZOLE 20 MG CAPSULE.DR GT SCH (05:01)
[2020-02-04] MEDS: LEVOTHYROXINE SODIUM 50 MCG TABLET GT SCH (05:01)
--- NOTE | 2020-02-04 06:22 | NUR ---
RN NOTES Noted pt with respiratory distress and hypoxic, awake and alert. Suctioned and RT on duty called. Pt was placed back on previous vent settings of AC 16, VT 500, Peep +5, FiO2 30%. Pt tolerating settings, relieved of resp distress. O2sat 100%. Pt appears to be comfortable and is able to rest. Will notify following shift.
--- NOTE | 2020-02-04 06:22 | NUR ---
RT NOTE: PT RETURNED TO PREVIOUS SETTINGS OF AC 16, 500, 30, +5 DUE TO RESPIRATORY DISTRESS AND HYPOEMIA. PT APPEARS TO TOLERATE NEW SETTINGS WELL. DISTRESS SUBSIDED. WILL MONITOR FURTHER. Addendum: 02/04/20 at 0626 by NINI NINO RT Amended: Links added.
[2020-02-04] MEDS: glipiZIDE 5 MG TABLET PO SCH ×2 (07:30→16:41)
[2020-02-04] MEDS: HYDROGEN PEROXIDE 480 ML BOTTLE TP SCH ×2 (09:00→21:00)
[2020-02-04] MEDS: SITAGLIPTIN PHOSPHATE 50 MG TABLET GT SCH (09:17)
[2020-02-04] MEDS: APIXABAN 5 MG TABLET GT SCH ×2 (09:17→16:42)
[2020-02-04] MEDS: SIROLIMUS 1 MG GT SCH (09:17)
[2020-02-04] MEDS: KEPPRA 500 MG GT SCH ×2 (09:17→20:07)
[2020-02-04] MEDS: FERROUS SULFATE - FOR SA ONLY 330 MG/7.5 ML UDC GT SCH ×3 (09:17→16:42)
[2020-02-04] MEDS: Z GUARD REMEDY 2 OZ OINT TP SCH ×4 (09:18→20:07)
[2020-02-04] MEDS: Z GUARD REMEDY 4 OZ OINT TP SCH ×2 (09:18→20:07)
[2020-02-04] MEDS: CLOTRIMAZOLE 1% 15 GM TUBE TP SCH ×2 (09:18→20:07)
[2020-02-04] MEDS: VITS A AND D/WHITE PET/LANOLIN 5 GM PACKET TP SCH ×2 (09:19→20:07)
[2020-02-04 09:51] VITALS: BP 108/50
--- NOTE | 2020-02-04 10:09 | NUR ---
PT REC'D TRACH'D ON MECHANICAL VENT WITH CHARTED SETTINGS. VENT PLUGGED IN RED OUTLET. NO SOB NOTED AT THIS TIME. WILL CONTINUE TO MONITOR. Addendum: 02/04/20 at 1011 by DEVANG BENNETT RT Amended: Links added.
--- NOTE | 2020-02-04 10:22 | NUR ---
Notified Dr Alicea that pt was placed back on AC mode due to SOB and desaturation. No new order.
--- NOTE | 2020-02-04 10:30 | NUR ---
Notified Trevon that pt is back on AC mode due to SOB and desaturation.
[2020-02-04] MEDS: DIGOXIN 0.125 MG TABLET GT SCH (12:46)
--- NOTE | 2020-02-04 13:21 | NUR ---
Seen by LENKA Taylor. Notified her pt was placed back on AC mode due to SOB and desaturation. She ordered CXR. She also ordered HgbA1C per dietary recommendation.
[2020-02-04 20:21] VITALS: BP 134/68
[2020-02-04] MEDS: LATANOPROST EYE DROP 0.005% 2.5 ML BOTTLE EACHEYE SCH (22:20)
[2020-02-04] MEDS: TAMSULOSIN 0.4 MG CAP.SR.24H GT SCH (22:20)
[2020-02-04] MEDS: INSULIN DETEMIR 100 UNIT/ML CARTRIDGE SQ SCH (22:21)
[2020-02-05] MEDS: BLOOD SUGAR DIAGNOSTIC 1 EACH STRIP IN SCH ×3 (05:02→18:38)
[2020-02-05] MEDS: LEVOTHYROXINE SODIUM 50 MCG TABLET GT SCH (05:02)
[2020-02-05] MEDS: OMEPRAZOLE 20 MG CAPSULE.DR GT SCH (05:02)
[2020-02-05] MEDS: INSULIN ASPART/LISPRO 100 UNIT/ML CARTRIDGE SQ PRN ×3 (05:03→18:39)
[2020-02-05] MEDS: glipiZIDE 5 MG TABLET PO SCH ×2 (07:30→17:06)
[2020-02-05 07:52] VITALS: BP 132/84
[2020-02-05] MEDS: HYDROGEN PEROXIDE 480 ML BOTTLE TP SCH ×2 (08:04→21:00)
--- NOTE | 2020-02-05 08:13 | NUR ---
PT RCVD DARLENE'D ON MECHANICAL VENT WITH CHARTED SETTINGS. SX DONE. PT TRACH IS PATENT AND SECURE. VENT ALARMS ARE ON AND AUDIBLE. VENT PLUGGED INTO RED OUTLET. AMBU BAG AT BEDSIDE. NO SOB NOTED. Addendum: 02/05/20 at 0814 by MARI GARCIA RT Amended: Links added.
[2020-02-05 08:21] LABS: BASOPHILS # (AUTO) 0.1 /CMM (0.0-0.2); BASOPHILS % (AUTO) 0.8 % (0.0-2.0); EOSINOPHILS % (AUTO) 2.3 % (0.0-6.0); HEMATOCRIT 26 % (39-51); HEMOGLOBIN 8.6 g/dL (13.5-17.5); LYMPHOCYTES # (AUTO) 1.3 /CMM (0.8-4.8); LYMPHOCYTES % (AUTO) 14.9 % (20.0-44.0); MEAN CORPUSCULAR HGB CONC 33 g/dl (31.0-36.0); MEAN CORPUSCULAR VOLUME 89 fL (80-96); MONOCYTES # (AUTO) 0.8 /CMM (0.1-1.30); MONOCYTES % (AUTO) 8.6 % (2.0-12.0); NEUTROPHILS # (AUTO) 6.4 /CMM (1.8-8.9); NEUTROPHILS % (AUTO) 73.4 % (43.0-81.0); PLATELET COUNT (AUTO) 206 /CMM (150-450); RED BLOOD CELL COUNT(AUTO) 2.96 MIL/uL (4.5-6.0); WHITE BLOOD COUNT (AUTO) 8.7 K/uL (4.3-11.0)
[2020-02-05 08:33] LABS: CALCIUM, SERUM 8.5 mg/dL (8.5-10.1); CREATININE 1.1 mg/dL (0.6-1.3); MAGNESIUM 2.4 mg/dL (1.8-2.4); PHOSPHORUS 1.9 mg/dL (2.5-4.9); POTASSIUM 3.8 mmol/L (3.5-5.1)
[2020-02-05] MEDS: FERROUS SULFATE - FOR SA ONLY 330 MG/7.5 ML UDC GT SCH ×3 (09:00→17:07)
[2020-02-05] MEDS: APIXABAN 5 MG TABLET GT SCH ×2 (09:00→17:06)
[2020-02-05] MEDS: Z GUARD REMEDY 4 OZ OINT TP SCH ×2 (09:00→20:08)
[2020-02-05] MEDS: VITS A AND D/WHITE PET/LANOLIN 5 GM PACKET TP SCH ×2 (09:00→20:08)
[2020-02-05] MEDS: SITAGLIPTIN PHOSPHATE 50 MG TABLET GT SCH (09:00)
[2020-02-05] MEDS: Z GUARD REMEDY 2 OZ OINT TP SCH ×4 (09:00→20:08)
[2020-02-05] MEDS: CLOTRIMAZOLE 1% 15 GM TUBE TP SCH ×2 (09:00→20:08)
[2020-02-05] MEDS: SIROLIMUS 1 MG GT SCH (09:00)
[2020-02-05] MEDS: KEPPRA 500 MG GT SCH ×2 (09:00→20:08)
--- NOTE | 2020-02-05 10:00 | NUR ---
Seen by Dr Alicea. Relayed CXR result to him. He said he will view the CXR. No new order at this time.
--- NOTE | 2020-02-05 12:17 | NUR ---
Asked Dr Hood to review pt's blood sugar levels and diabetes medications. Informed him that pt is on Diabetisource feeding at this time as trial, but the hospital will not always provide it. Pt will be placed back on Glucerna. Also asked him if he wanted to check for C diff since pt is having 2-5 bowel movements, some are loose stools. Dr Hood said yes to checking for C diff. He also said he has been aggressively reviewing and increasing pt's medications. Informed Dr Hood that HgbA1C is 10. He said it is the average of 3 months and it will be better next time.
[2020-02-05] MEDS: DIGOXIN 0.125 MG TABLET GT SCH (13:09)
[2020-02-05] MEDS ORDERED: LEVOFLOXACIN (750 MG) 750 MG TABLET GT SCH (17:00)
[2020-02-05] MEDS: DIABETISOURCE GT PRN (17:18)
--- NOTE | 2020-02-05 17:25 | NUR ---
Called Nick to inform him of pt's CXR result, blood sugars, and new orders. Also informed him that charge nurse asked Dr Hood to review blood sugars and diabetes medications since Diabetisource is only limited supply. Trevon concerned if pt has Covid-19. Explained to him that doctor can be asked for it but pt is not qualified for testing at this time and he verbalized understanding. He said at the place where he works, testing if only for fevers of 100.4 and above. Pt's temp 99.5 F this morning and 99.6 right now.
[2020-02-05] MEDS: LEVOFLOXACIN (250MG) 250 MG TABLET GT SCH (18:19)
--- NOTE | 2020-02-05 18:24 | NUR ---
Pt only had one bowel movement throughout this shift, stool was loose. Stool for C diff not yet collected.
[2020-02-05] MEDS ORDERED: NEUTRA PHOS 1 POWD.PACKET PO ONE ×2 (18:30→20:00)
[2020-02-05 20:09] VITALS: BP 146/66
[2020-02-05] MEDS: TAMSULOSIN 0.4 MG CAP.SR.24H GT SCH (21:22)
[2020-02-05] MEDS: LATANOPROST EYE DROP 0.005% 2.5 ML BOTTLE EACHEYE SCH (21:22)
[2020-02-05] MEDS: INSULIN DETEMIR 100 UNIT/ML CARTRIDGE SQ SCH (21:24)
[2020-02-06] MEDS: BLOOD SUGAR DIAGNOSTIC 1 EACH STRIP IN SCH ×4 (00:18→18:32)
[2020-02-06] MEDS: INSULIN ASPART/LISPRO 100 UNIT/ML CARTRIDGE SQ PRN ×4 (00:19→18:36)
[2020-02-06] MEDS: OMEPRAZOLE 20 MG CAPSULE.DR GT SCH (05:01)
[2020-02-06] MEDS: LEVOTHYROXINE SODIUM 50 MCG TABLET GT SCH (05:01)
--- NOTE | 2020-02-06 06:29 | NUR ---
RN NOTES Sputum cx collected and sent to lab. EKG done by RT on duty. Pt had one loose BM. Will notify following shift to collect stool if pt has another loose BM. Pt in stable condition. No respiratory distress noted, tolerating vent settings.
[2020-02-06] MEDS: glipiZIDE 5 MG TABLET PO SCH ×2 (07:30→16:30)
[2020-02-06 07:36] VITALS: BP 121/72
[2020-02-06] MEDS: APIXABAN 5 MG TABLET GT SCH ×2 (09:44→17:00)
[2020-02-06] MEDS: CLOTRIMAZOLE 1% 15 GM TUBE TP SCH ×2 (09:44→21:02)
[2020-02-06] MEDS: FERROUS SULFATE - FOR SA ONLY 330 MG/7.5 ML UDC GT SCH ×3 (09:44→17:00)
[2020-02-06] MEDS: KEPPRA 500 MG GT SCH ×2 (09:44→21:02)
[2020-02-06] MEDS: SIROLIMUS 1 MG GT SCH (09:44)
[2020-02-06] MEDS: SITAGLIPTIN PHOSPHATE 50 MG TABLET GT SCH (09:44)
[2020-02-06] MEDS: Z GUARD REMEDY 4 OZ OINT TP SCH ×2 (09:45→21:03)
[2020-02-06] MEDS: Z GUARD REMEDY 2 OZ OINT TP SCH ×4 (09:45→21:03)
[2020-02-06] MEDS: VITS A AND D/WHITE PET/LANOLIN 5 GM PACKET TP SCH ×2 (09:45→21:03)
[2020-02-06] MEDS: HYDROGEN PEROXIDE 480 ML BOTTLE TP SCH ×2 (10:00→21:00)
--- NOTE | 2020-02-06 12:44 | NUR ---
PT RECEIVED ON CURRENT SETTINGS WITH NO SIGNS OF RESPIRATORY DISTRESS NOTED. AIRWAY IS PATENT AND SECURE WITH NO SOB AT THIS TIME. VENT IS PLUGGED INTO RED OUTLET WITH ALARMS ON AND AUDIBLE. SUCTION PT NEEDED. WILL CONTINUE TO MONITOR. Addendum: 02/06/20 at 1246 by DESIRE CHOI RT Amended: Links added.
[2020-02-06] MEDS: DIGOXIN 0.125 MG TABLET GT SCH (13:09)
--- NOTE | 2020-02-06 14:05 | NUR ---
Relayed EKG result to Dr. Alicea (sinus rhythm rate 81. According to Dr. Alicea to repeat EKG every other day. until off Levaquin and to call MD if QT greater than 500msec. Order carried out.
[2020-02-06] MEDS ORDERED: PROSOURCE / PROSTAT (PYXIS) 30 ML UDC GT SCH (17:00)
[2020-02-06] MEDS: DIABETISOURCE GT PRN (19:34)
[2020-02-06 19:59] VITALS: BP 141/77
[2020-02-06] MEDS: ACETAMINOPHEN 650 MG/20 ML UDC- SA PATIENTS-FEVER ONLY GT PRN (20:38)
[2020-02-06] MEDS: TAMSULOSIN 0.4 MG CAP.SR.24H GT SCH (21:03)
[2020-02-06] MEDS: LATANOPROST EYE DROP 0.005% 2.5 ML BOTTLE EACHEYE SCH (21:03)
[2020-02-06] MEDS: INSULIN DETEMIR 100 UNIT/ML CARTRIDGE SQ SCH (21:59)
[2020-02-07] MEDS: BLOOD SUGAR DIAGNOSTIC 1 EACH STRIP IN SCH ×5 (00:03→23:38)
[2020-02-07] MEDS: INSULIN ASPART/LISPRO 100 UNIT/ML CARTRIDGE SQ PRN ×5 (00:05→23:39)
--- NOTE | 2020-02-07 06:12 | NUR ---
Patient with on and off fever T max 101.6,cooling measures provided.Tylenol via gt as ordered for fever. No respiratory distress noted. Suctioning q 2 hours and PRN. Patient on currently on Levaquin 750 mg q 48 hrs via gt for PNA.Sputum culture still pending. Will continue to monitor and will endorse.
--- NOTE | 2020-02-07 06:16 | NUR ---
Follow chest x ray done awaiting for result.
[2020-02-07] MEDS: LEVOTHYROXINE SODIUM 50 MCG TABLET GT SCH (06:17)
[2020-02-07] MEDS: OMEPRAZOLE 20 MG CAPSULE.DR GT SCH (06:17)
[2020-02-07] MEDS: ACETAMINOPHEN 650 MG/20 ML UDC- SA PATIENTS-FEVER ONLY GT PRN (06:23)
[2020-02-07] MEDS: glipiZIDE 5 MG TABLET PO SCH ×2 (07:30→16:30)
[2020-02-07 07:42] VITALS: BP 142/66
--- NOTE | 2020-02-07 08:30 | NUR ---
Notified Dr Alicea that pt had a temp of 101.6 F last night, 100.2 F this morning. CXR result showed no significant change. Dr Alicea said to give Tylenol.
--- NOTE | 2020-02-07 08:45 | NUR ---
Notified Dr Hood that pt had a temp of 101.6 F last night and 100.2 F this morning, pt on Levaquin for pneumonia. Asked him if pt can be placed on precautionary isolation and if pt should be tested for Covid-19. Also asked him to call pt's son regarding blood sugars and feeding.
[2020-02-07] MEDS: SITAGLIPTIN PHOSPHATE 50 MG TABLET GT SCH (09:00)
[2020-02-07] MEDS: CLOTRIMAZOLE 1% 15 GM TUBE TP SCH ×2 (09:00→21:54)
[2020-02-07] MEDS: SIROLIMUS 1 MG GT SCH (09:00)
[2020-02-07] MEDS: KEPPRA 500 MG GT SCH ×2 (09:00→21:53)
[2020-02-07] MEDS: Z GUARD REMEDY 2 OZ OINT TP SCH ×4 (09:00→21:54)
[2020-02-07] MEDS: FERROUS SULFATE - FOR SA ONLY 330 MG/7.5 ML UDC GT SCH ×3 (09:00→17:58)
[2020-02-07] MEDS: VITS A AND D/WHITE PET/LANOLIN 5 GM PACKET TP SCH (09:00)
[2020-02-07] MEDS: APIXABAN 5 MG TABLET GT SCH ×2 (09:00→17:58)
[2020-02-07] MEDS: Z GUARD REMEDY 4 OZ OINT TP SCH ×2 (09:00→21:54)
[2020-02-07] MEDS: HYDROGEN PEROXIDE 480 ML BOTTLE TP SCH ×2 (09:09→21:09)
--- NOTE | 2020-02-07 09:10 | NUR ---
Notified infection control nurse Amanda that pt had a temp of 101.6 F last night, 100.2 F this morning, on Levaquin for pneumonia.
--- NOTE | 2020-02-07 10:54 | NUR ---
Dr Hood said yes to placing pt on precautionary contact and droplet isolation, Covid-19 testing. Reminded staff to observe isolation precautions and proper handwashing. Notified Trevon.
--- NOTE | 2020-02-07 10:59 | NUR ---
Notified Dr Milligan that pt had a fever and will be tested for Covid-19. He said he will see pt later. Also notified infection control nurse Amanda that pt will be tested for Covid-19.
--- NOTE | 2020-02-07 11:03 | NUR ---
Notified Trevon that pt's feeding will be switched back to Glucerna. He said pt's diabetes medications have been adjusted and now that pt will be back on Glucerna, it can be determined if pt was doing better with Diabetisource or not.
[2020-02-07] MEDS: DIGOXIN 0.125 MG TABLET GT SCH (13:00)
--- NOTE | 2020-02-07 13:28 | NUR ---
Received order from Dr Milligan to give Vancomycin IV pharmacy to dose and Meropenem 1 gm IV q 8 hours x 5 days per protocol. Also received order to do lactic acid, procalcitonin, UA C & S, blood culture x 2, MRSA nares, sputum culture. Notified
[2020-02-07] MEDS: MEROPENEM 1 G in IV NS 0.9% 100 ML IV SCH ×2 (14:00→21:00)
[2020-02-07] MEDS: DIABETISOURCE GT PRN (14:29)
--- NOTE | 2020-02-07 15:15 | NUR ---
Notified Dr Milligan that pt has a sputum culture pending which was ordered on 02/05/20. He said to cancel today's order of sputum culture.
--- NOTE | 2020-02-07 15:17 | NUR ---
Pt was moved to Room 273 for isolation. Notified Trevon.
[2020-02-07] MEDS: VANCOMYCIN 1 GM in IV D5W 250ml IV SCH (17:00)
--- NOTE | 2020-02-07 17:10 | NUR ---
RT NOTE RECEIVED PATIENT ON MECHANICAL VENT WITH ORDERED SETTINGS, TOLERATING WELL. ALARMS ON AND AUDIBLE, WITH VENT PLUGGED IN TO THE RED OUTLET. AMBU BAG AND, BACK UP TRACH BY THE BEDSIDE. TRACH TUBE IN PLACE, PATENT, AND SECURED WITH TRACH TIE. NO DISTRESS AT THIS TIME. MONITOR THROUGHOUT SHIFT.
--- NOTE | 2020-02-07 17:57 | NUR ---
Preliminary sputum culture result seen by HOSPITAL CHAPLAIN Nadine Taylor. No new order at this time. Pt's temp 98.2 F, no increased coughing or increased secretions.
[2020-02-07 17:58] LABS: APPEARANCE,URINE CLEAR (CLEAR); BILIRUBIN,URINE NEGATIVE (NEGATIVE); BLOOD, URINE NEGATIVE Ery/uL (NEGATIVE); COLOR,URINE YELLOW (YELLOW); KETONES,URINE NEGATIVE (NEGATIVE); LEUKOCYTE ESTERASE ,URINE NEGATIVE (NEGATIVE); NITRITE, URINE NEGATIVE (NEGATIVE); PROTEIN,URINE 30 mg/dl (NEGATIVE); UGLUCOSE NEGATIVE (NEGATIVE)
[2020-02-07 18:01] LABS: BACTERIA,URINE None seen /HPF (None Seen); RBC,URINE 0-2 /HPF (0-2); SQUAMOUS EPITHELIAL CELL,UR Few /HPF (None Seen); WBC,URINE 0-2 /HPF (0-3)
[2020-02-07] MEDS: LEVOFLOXACIN (250MG) 250 MG TABLET GT SCH (18:17)
--- NOTE | 2020-02-07 18:34 | NUR ---
Received order for pt to be placed back on GT feeding of Glucerna 1.2 at 50 mL/hr x 20 hours a day. Pt's son Trevon tyson.
[2020-02-07] MEDS ORDERED: DEXTROSE 50%-WATER 50 ML DISP.SYRIN IV PRN (19:00)
--- NOTE | 2020-02-07 20:14 | NUR ---
RT NOTE PT RECEIVED TRACHED ON MECHANICAL VENTILATION. AMBU BAG/BACK UP TRACH @ BEDSIDE. SX DONE, TRACH SECURED AND PATENT. ALARMS ON AND AUDIBLE. NO DISTRESS NOTED. CONT. PULSE OX CONNECTED. WILL MONITOR T/O SHIFT. Addendum: 02/07/20 at 2014 by MATHEW RICHARDS RT Amended: Links added.
[2020-02-07] MEDS: TAMSULOSIN 0.4 MG CAP.SR.24H GT SCH (21:54)
[2020-02-07] MEDS: LATANOPROST EYE DROP 0.005% 2.5 ML BOTTLE EACHEYE SCH (21:54)
[2020-02-07] MEDS: VITAMINS A AND D 56.7 GM TUBE TP SCH (21:54)
[2020-02-07] MEDS: INSULIN DETEMIR 100 UNIT/ML CARTRIDGE SQ SCH (21:56)
[2020-02-08] MEDS: MEROPENEM 1 G in IV NS 0.9% 100 ML IV SCH ×3 (05:00→21:00)
[2020-02-08] MEDS: LEVOTHYROXINE SODIUM 50 MCG TABLET GT SCH (05:31)
[2020-02-08] MEDS: OMEPRAZOLE 20 MG CAPSULE.DR GT SCH (05:31)
[2020-02-08] MEDS: BLOOD SUGAR DIAGNOSTIC 1 EACH STRIP IN SCH ×3 (06:00→18:02)
[2020-02-08] MEDS: INSULIN ASPART/LISPRO 100 UNIT/ML CARTRIDGE SQ PRN ×3 (06:01→18:03)
--- NOTE | 2020-02-08 06:17 | NUR ---
Patient noted with low grade temp 99.4,cooling measures provided. No respiratory distress. IV Merrem given as ordered. EKG done will notify MD for results. Will continue to monitor.
[2020-02-08] MEDS: glipiZIDE 5 MG TABLET GT SCH ×2 (07:30→16:30)
[2020-02-08 08:05] VITALS: BP 129/66
[2020-02-08] MEDS: HYDROGEN PEROXIDE 480 ML BOTTLE TP SCH ×2 (08:56→20:06)
[2020-02-08] MEDS: CLOTRIMAZOLE 1% 15 GM TUBE TP SCH ×2 (09:00→21:32)
[2020-02-08] MEDS: VITAMINS A AND D 56.7 GM TUBE TP SCH ×2 (09:00→21:32)
[2020-02-08] MEDS: SITAGLIPTIN PHOSPHATE 50 MG TABLET GT SCH (09:00)
[2020-02-08] MEDS: APIXABAN 5 MG TABLET GT SCH ×2 (09:00→17:58)
[2020-02-08] MEDS: FERROUS SULFATE - FOR SA ONLY 330 MG/7.5 ML UDC GT SCH ×3 (09:00→17:58)
[2020-02-08] MEDS: SIROLIMUS 1 MG GT SCH (09:00)
[2020-02-08] MEDS: KEPPRA 500 MG GT SCH ×2 (09:00→21:32)
[2020-02-08] MEDS: Z GUARD REMEDY 2 OZ OINT TP SCH ×4 (09:00→21:32)
[2020-02-08] MEDS: Z GUARD REMEDY 4 OZ OINT TP SCH ×2 (09:00→21:32)
[2020-02-08] MEDS: DIGOXIN 0.125 MG TABLET GT SCH (13:00)
--- NOTE | 2020-02-08 13:30 | NUR ---
During IDT, Dr. Alicea discontinue Levaquin via GT since patient already on IV Merrem and Vancomycin per pharmacy recommendation. Dr. Milligan, ID who is also participating in the meeting in agreement. Resident's son informed of negative Covid-19 test result.
[2020-02-08] MEDS: GLUCERNA 1.2 1,000 ML BOTTLE GT PRN (13:39)
--- NOTE | 2020-02-08 15:30 | NUR ---
Seen and examined by LENKA Taylor, reviewed recent laboratory and culture results, no new order given at this time.
--- NOTE | 2020-02-08 16:33 | NUR ---
INTERDISCIPLINARY PLAN OF CARE CONFERENCE took place today. The patients responsible constitution party/ Trevon Ambrocio was called to participate via phone conference. However, call went to voicemail and SW left call back number. Charge nurse discussed the covid-19 Test result was negative; inconsistent blood sugar levels. and pt. was on Diabetisource trial with no significant change and pt. placed back on GT feeding of Glucerna ; per Pharmacy recommendation D/C Donald (see nursing notes for details). Dr. Alicea and Interdisciplinary team discussed the plan of care in detail. Current orders as well as treatments and medications were reviewed. See other disciplines IDT notes for further details.
[2020-02-08] MEDS: VANCOMYCIN 1 GM in IV D5W 250ml IV SCH (18:00)
[2020-02-08 20:24] VITALS: BP 118/57
[2020-02-08] MEDS: TAMSULOSIN 0.4 MG CAP.SR.24H GT SCH (21:32)
[2020-02-08] MEDS: LATANOPROST EYE DROP 0.005% 2.5 ML BOTTLE EACHEYE SCH (21:32)
[2020-02-08] MEDS: INSULIN DETEMIR 100 UNIT/ML CARTRIDGE SQ SCH (21:51)
--- NOTE | 2020-02-08 23:08 | NUR ---
RT NOTE PT RECEIVED TRACHED ON MECHANICAL VENTILATION. CUFF CHECKED VIA CRIMINAL DEFENSE LAWYER. AMBU BAG/BACK UP TRACH @ BEDSIDE. SX DONE, TRACH SECURED AND PATENT. ALARMS ON AND AUDIBLE. NO DISTRESS NOTED. CONT. PULSE OX CONNECTED. WILL MONITOR T/O SHIFT. Addendum: 02/08/20 at 2308 by MANNIE ESCAMILLA RT Amended: Links added.
[2020-02-09] MEDS: BLOOD SUGAR DIAGNOSTIC 1 EACH STRIP IN SCH ×5 (00:47→23:50)
[2020-02-09] MEDS: INSULIN ASPART/LISPRO 100 UNIT/ML CARTRIDGE SQ PRN ×5 (00:47→23:50)
[2020-02-09] MEDS: MEROPENEM 1 G in IV NS 0.9% 100 ML IV SCH ×2 (05:00→12:43)
[2020-02-09] MEDS: OMEPRAZOLE 20 MG CAPSULE.DR GT SCH (05:45)
[2020-02-09] MEDS: LEVOTHYROXINE SODIUM 50 MCG TABLET GT SCH (05:45)
[2020-02-09] MEDS: glipiZIDE 5 MG TABLET GT SCH ×2 (07:30→17:25)
[2020-02-09] MEDS: HYDROGEN PEROXIDE 480 ML BOTTLE TP SCH ×2 (09:00→21:00)
[2020-02-09] MEDS: SITAGLIPTIN PHOSPHATE 50 MG TABLET GT SCH (09:19)
[2020-02-09] MEDS: APIXABAN 5 MG TABLET GT SCH ×2 (09:19→17:26)
[2020-02-09] MEDS: SIROLIMUS 1 MG GT SCH (09:19)
[2020-02-09] MEDS: FERROUS SULFATE - FOR SA ONLY 330 MG/7.5 ML UDC GT SCH ×3 (09:19→17:26)
[2020-02-09] MEDS: CLOTRIMAZOLE 1% 15 GM TUBE TP SCH ×2 (09:19→21:38)
[2020-02-09] MEDS: Z GUARD REMEDY 4 OZ OINT TP SCH ×2 (09:19→21:38)
[2020-02-09] MEDS: KEPPRA 500 MG GT SCH ×2 (09:19→21:37)
[2020-02-09] MEDS: Z GUARD REMEDY 2 OZ OINT TP SCH ×4 (09:19→21:38)
[2020-02-09] MEDS: VITAMINS A AND D 56.7 GM TUBE TP SCH ×2 (09:20→21:38)
[2020-02-09] MEDS: DIGOXIN 0.125 MG TABLET GT SCH (12:53)
[2020-02-09] MEDS: GLUCERNA 1.2 1,000 ML BOTTLE GT PRN (12:56)
--- NOTE | 2020-02-09 16:50 | NUR ---
CAREER LAW CLERK Clementina Taylor reviewed labs and culture result with order to DC Merrem while Dr. Milligan ordered to DC Vancomycin. CAREER LAW CLERK ordered Tobramycin inhalation for [address] Alicea. Notified Dr. Alicea of the order and he is in agreement. Informed [facility] pharmacy c/o Jeanette about the order for pharmacy to dose the Tobramycicn, she recommended Tobramycin 300mg q 12 if OK with ordering provider. CAREER LAW CLERK Clementina Taylor agreed with recommendations. Orders carried out. According to pharmacy they will call if medication is covered or not by patient's insurance. Resident's son Trevon informed of new order and update him of patient's status at this time.
--- NOTE | 2020-02-09 17:30 | NUR ---
Spoke with Ed from [facility] pharmacy, to f/u if Tobramycin is covered by insurance he said that business office is working on it because initially it looks like it was rejected.
--- NOTE | 2020-02-09 19:30 | NUR ---
Per Karla from [facility] pharmacy they will send Tobramycin tonight. Endorsed to incoming shift.
--- NOTE | 2020-02-09 20:19 | NUR ---
RT pt received on current vent settings. spare trach at bedside. ambu bag at hob. hob at 30 degrees. alarms on and audible. bilater chest rise. minimal secretions. no respiratory distress. no sob. no changes at this time. will continue to monitor. Addendum: 02/10/20 at 0558 by JULIET IGNACIO RT Amended: Links added.
[2020-02-09 21:24] VITALS: BP 128/54
[2020-02-09] MEDS: LATANOPROST EYE DROP 0.005% 2.5 ML BOTTLE EACHEYE SCH (21:38)
[2020-02-09] MEDS: TAMSULOSIN 0.4 MG CAP.SR.24H GT SCH (21:38)
[2020-02-09] MEDS: INSULIN DETEMIR 100 UNIT/ML CARTRIDGE SQ SCH (21:50)
[2020-02-10] MEDS: INSULIN ASPART/LISPRO 100 UNIT/ML CARTRIDGE SQ PRN ×4 (05:40→23:52)
[2020-02-10] MEDS: LEVOTHYROXINE SODIUM 50 MCG TABLET GT SCH (05:40)
[2020-02-10] MEDS: BLOOD SUGAR DIAGNOSTIC 1 EACH STRIP IN SCH ×4 (05:40→23:52)
[2020-02-10] MEDS: OMEPRAZOLE 20 MG CAPSULE.DR GT SCH (05:40)
[2020-02-10] MEDS: glipiZIDE 5 MG TABLET GT SCH ×2 (07:30→16:29)
[2020-02-10] MEDS: TOBRAMYCIN 300 MG INH SCH ×2 (08:03→20:33)
[2020-02-10 08:10] VITALS: BP 135/64
[2020-02-10] MEDS: KEPPRA 500 MG GT SCH ×2 (09:00→21:06)
[2020-02-10] MEDS: SIROLIMUS 1 MG GT SCH (09:00)
[2020-02-10] MEDS: FERROUS SULFATE - FOR SA ONLY 330 MG/7.5 ML UDC GT SCH ×3 (09:00→17:00)
[2020-02-10] MEDS: HYDROGEN PEROXIDE 480 ML BOTTLE TP SCH ×2 (09:00→21:00)
[2020-02-10] MEDS: APIXABAN 5 MG TABLET GT SCH ×2 (09:00→17:00)
[2020-02-10] MEDS: VITAMINS A AND D 56.7 GM TUBE TP SCH ×2 (09:00→21:06)
[2020-02-10] MEDS: Z GUARD REMEDY 2 OZ OINT TP SCH ×4 (09:00→21:06)
[2020-02-10] MEDS: SITAGLIPTIN PHOSPHATE 50 MG TABLET GT SCH (09:00)
[2020-02-10] MEDS: CLOTRIMAZOLE 1% 15 GM TUBE TP SCH ×2 (09:00→21:06)
[2020-02-10] MEDS: Z GUARD REMEDY 4 OZ OINT TP SCH ×2 (09:00→21:06)
[2020-02-10] MEDS: DIGOXIN 0.125 MG TABLET GT SCH (13:00)
[2020-02-10] MEDS: GLUCERNA 1.2 1,000 ML BOTTLE GT PRN (13:05)
[2020-02-10 20:51] VITALS: BP 108/55
[2020-02-10] MEDS: TAMSULOSIN 0.4 MG CAP.SR.24H GT SCH (21:06)
[2020-02-10] MEDS: LATANOPROST EYE DROP 0.005% 2.5 ML BOTTLE EACHEYE SCH (21:06)
[2020-02-10] MEDS: INSULIN DETEMIR 100 UNIT/ML CARTRIDGE SQ SCH (21:07)
[2020-02-11] MEDS: LEVOTHYROXINE SODIUM 50 MCG TABLET GT SCH (05:41)
[2020-02-11] MEDS: OMEPRAZOLE 20 MG CAPSULE.DR GT SCH (05:41)
[2020-02-11] MEDS: BLOOD SUGAR DIAGNOSTIC 1 EACH STRIP IN SCH ×4 (05:41→23:46)
[2020-02-11] MEDS: glipiZIDE 5 MG TABLET GT SCH ×2 (07:30→16:50)
[2020-02-11] MEDS: APIXABAN 5 MG TABLET GT SCH ×2 (09:00→16:52)
[2020-02-11] MEDS: Z GUARD REMEDY 2 OZ OINT TP SCH ×4 (09:00→21:10)
[2020-02-11] MEDS: TOBRAMYCIN 300 MG INH SCH ×2 (09:00→21:00)
[2020-02-11] MEDS: VITAMINS A AND D 56.7 GM TUBE TP SCH ×2 (09:00→21:10)
[2020-02-11] MEDS: HYDROGEN PEROXIDE 480 ML BOTTLE TP SCH ×2 (09:00→21:00)
[2020-02-11] MEDS: SITAGLIPTIN PHOSPHATE 50 MG TABLET GT SCH (09:00)
[2020-02-11] MEDS: SIROLIMUS 1 MG GT SCH (09:00)
[2020-02-11] MEDS: CLOTRIMAZOLE 1% 15 GM TUBE TP SCH ×2 (09:00→21:10)
[2020-02-11] MEDS: Z GUARD REMEDY 4 OZ OINT TP SCH ×2 (09:00→21:10)
[2020-02-11] MEDS: KEPPRA 500 MG GT SCH ×2 (09:00→21:10)
[2020-02-11] MEDS: FERROUS SULFATE - FOR SA ONLY 330 MG/7.5 ML UDC GT SCH ×3 (09:00→16:52)
[2020-02-11 10:01] VITALS: BP 101/54
[2020-02-11] MEDS: DIGOXIN 0.125 MG TABLET GT SCH (13:00)
[2020-02-11] MEDS: INSULIN ASPART/LISPRO 100 UNIT/ML CARTRIDGE SQ PRN ×2 (13:06→18:09)
[2020-02-11 20:03] VITALS: BP 134/70
[2020-02-11] MEDS: LATANOPROST EYE DROP 0.005% 2.5 ML BOTTLE EACHEYE SCH (21:11)
[2020-02-11] MEDS: TAMSULOSIN 0.4 MG CAP.SR.24H GT SCH (21:11)
[2020-02-11] MEDS: INSULIN DETEMIR 100 UNIT/ML CARTRIDGE SQ SCH (21:13)
[2020-02-12] MEDS: BLOOD SUGAR DIAGNOSTIC 1 EACH STRIP IN SCH ×4 (06:33→23:47)
[2020-02-12] MEDS: OMEPRAZOLE 20 MG CAPSULE.DR GT SCH (06:33)
[2020-02-12] MEDS: LEVOTHYROXINE SODIUM 50 MCG TABLET GT SCH (06:33)
[2020-02-12] MEDS: glipiZIDE 5 MG TABLET GT SCH ×2 (07:30→16:46)
[2020-02-12] MEDS: APIXABAN 5 MG TABLET GT SCH ×2 (09:58→16:47)
[2020-02-12] MEDS: KEPPRA 500 MG GT SCH ×2 (09:59→21:21)
[2020-02-12] MEDS: Z GUARD REMEDY 4 OZ OINT TP SCH ×2 (09:59→21:21)
[2020-02-12] MEDS: FERROUS SULFATE - FOR SA ONLY 330 MG/7.5 ML UDC GT SCH ×3 (09:59→16:47)
[2020-02-12] MEDS: SIROLIMUS 1 MG GT SCH (09:59)
[2020-02-12] MEDS: Z GUARD REMEDY 2 OZ OINT TP SCH ×4 (09:59→21:21)
[2020-02-12] MEDS: CLOTRIMAZOLE 1% 15 GM TUBE TP SCH ×2 (09:59→21:21)
[2020-02-12] MEDS: VITAMINS A AND D 56.7 GM TUBE TP SCH ×2 (09:59→21:21)
[2020-02-12] MEDS: SITAGLIPTIN PHOSPHATE 50 MG TABLET GT SCH (09:59)
[2020-02-12 11:53] VITALS: BP 139/81
[2020-02-12] MEDS: INSULIN ASPART/LISPRO 100 UNIT/ML CARTRIDGE SQ PRN ×3 (12:05→23:47)
[2020-02-12] MEDS: DIGOXIN 0.125 MG TABLET GT SCH (13:00)
[2020-02-12] MEDS: TOBRAMYCIN 300 MG INH SCH (20:00)
[2020-02-12] MEDS: HYDROGEN PEROXIDE 480 ML BOTTLE TP SCH (20:01)
[2020-02-12 20:07] VITALS: BP 123/63
--- NOTE | 2020-02-12 20:32 | NUR ---
RT NOTE PT RECEIVED TRACHED ON MECHANICAL VENTILATION. CUFF CHECKED VIA EDUCATION PROFESSIONAL. AMBU BAG/BACK UP TRACH @ BEDSIDE. TOBRAMYCIN TX GIVEN, NO ADVERSE REACTIONS NOTED. SX DONE, TRACH SECURED AND PATENT. ALARMS ON AND AUDIBLE. NO DISTRESS NOTED. CONT. PULSE OX CONNECTED. WILL MONITOR T/O SHIFT. Addendum: 02/12/20 at 2031 by MANNIE ESCAMILLA RT Amended: Links added.
[2020-02-12] MEDS: TAMSULOSIN 0.4 MG CAP.SR.24H GT SCH (21:21)
[2020-02-12] MEDS: LATANOPROST EYE DROP 0.005% 2.5 ML BOTTLE EACHEYE SCH (21:21)
[2020-02-12] MEDS: INSULIN DETEMIR 100 UNIT/ML CARTRIDGE SQ SCH (21:22)
[2020-02-13] MEDS: LEVOTHYROXINE SODIUM 50 MCG TABLET GT SCH (05:35)
[2020-02-13] MEDS: BLOOD SUGAR DIAGNOSTIC 1 EACH STRIP IN SCH ×3 (05:35→17:42)
[2020-02-13] MEDS: OMEPRAZOLE 20 MG CAPSULE.DR GT SCH (05:35)
[2020-02-13] MEDS: INSULIN ASPART/LISPRO 100 UNIT/ML CARTRIDGE SQ PRN ×3 (05:36→17:43)
[2020-02-13] MEDS: glipiZIDE 5 MG TABLET GT SCH ×2 (07:30→16:30)
[2020-02-13 07:51] VITALS: BP 132/68
[2020-02-13] MEDS: KEPPRA 500 MG GT SCH ×2 (09:00→21:02)
[2020-02-13] MEDS: SIROLIMUS 1 MG GT SCH (09:00)
[2020-02-13] MEDS: Z GUARD REMEDY 2 OZ OINT TP SCH ×4 (09:00→21:02)
[2020-02-13] MEDS: APIXABAN 5 MG TABLET GT SCH ×2 (09:00→17:42)
[2020-02-13] MEDS: SITAGLIPTIN PHOSPHATE 50 MG TABLET GT SCH (09:00)
[2020-02-13] MEDS: Z GUARD REMEDY 4 OZ OINT TP SCH ×2 (09:00→21:02)
[2020-02-13] MEDS: VITAMINS A AND D 56.7 GM TUBE TP SCH ×2 (09:00→21:03)
[2020-02-13] MEDS: FERROUS SULFATE - FOR SA ONLY 330 MG/7.5 ML UDC GT SCH ×3 (09:00→17:42)
[2020-02-13] MEDS: CLOTRIMAZOLE 1% 15 GM TUBE TP SCH ×2 (09:00→21:02)
[2020-02-13] MEDS: HYDROGEN PEROXIDE 480 ML BOTTLE TP SCH ×2 (09:35→21:36)
--- NOTE | 2020-02-13 11:00 | NUR ---
Seen and examined by Dr. Goodrich, with new order for CBC, CMP, Mg. and Phos in AM. Orders carried out.
[2020-02-13] MEDS: DIGOXIN 0.125 MG TABLET GT SCH (12:57)
[2020-02-13] MEDS: GLUCERNA 1.2 1,000 ML BOTTLE GT PRN (17:42)
[2020-02-13 20:18] VITALS: BP 132/62
[2020-02-13] MEDS: TAMSULOSIN 0.4 MG CAP.SR.24H GT SCH (21:03)
[2020-02-13] MEDS: LATANOPROST EYE DROP 0.005% 2.5 ML BOTTLE EACHEYE SCH (21:03)
[2020-02-13] MEDS: INSULIN DETEMIR 100 UNIT/ML CARTRIDGE SQ SCH (22:08)
[2020-02-14] MEDS: BLOOD SUGAR DIAGNOSTIC 1 EACH STRIP IN SCH ×4 (00:17→18:20)
[2020-02-14] MEDS: INSULIN ASPART/LISPRO 100 UNIT/ML CARTRIDGE SQ PRN ×4 (00:18→18:21)
[2020-02-14] MEDS: LEVOTHYROXINE SODIUM 50 MCG TABLET GT SCH (06:35)
[2020-02-14] MEDS: OMEPRAZOLE 20 MG CAPSULE.DR GT SCH (06:35)
[2020-02-14 07:22] LABS: BASOPHILS # (AUTO) 0.1 /CMM (0.0-0.2); BASOPHILS % (AUTO) 0.7 % (0.0-2.0); EOSINOPHILS % (AUTO) 3.5 % (0.0-6.0); HEMATOCRIT 29 % (39-51); HEMOGLOBIN 9.1 g/dL (13.5-17.5); LYMPHOCYTES # (AUTO) 1.1 /CMM (0.8-4.8); LYMPHOCYTES % (AUTO) 16.2 % (20.0-44.0); MEAN CORPUSCULAR HGB CONC 32 g/dl (31.0-36.0); MEAN CORPUSCULAR VOLUME 88 fL (80-96); MONOCYTES # (AUTO) 0.8 /CMM (0.1-1.30); MONOCYTES % (AUTO) 11.1 % (2.0-12.0); NEUTROPHILS # (AUTO) 4.8 /CMM (1.8-8.9); NEUTROPHILS % (AUTO) 68.5 % (43.0-81.0); PLATELET COUNT (AUTO) 227 /CMM (150-450); RED BLOOD CELL COUNT(AUTO) 3.24 MIL/uL (4.5-6.0); WHITE BLOOD COUNT (AUTO) 7.1 K/uL (4.3-11.0)
[2020-02-14 07:45] LABS: BILIRUBIN,TOTAL 0.8 mg/dL (0.2-1.0); CALCIUM, SERUM 9.6 mg/dL (8.5-10.1); MAGNESIUM 2.3 mg/dL (1.8-2.4); PHOSPHORUS 3.5 mg/dL (2.5-4.9); POTASSIUM 4.1 mmol/L (3.5-5.1); TOTAL PROTEIN, SERUM 7.8 g/dL (6.4-8.2)
[2020-02-14 07:48] VITALS: BP 109/70
[2020-02-14] MEDS: glipiZIDE 5 MG TABLET GT SCH ×2 (08:08→16:33)
[2020-02-14] MEDS: Z GUARD REMEDY 2 OZ OINT TP SCH ×4 (08:09→21:31)
[2020-02-14] MEDS: SITAGLIPTIN PHOSPHATE 50 MG TABLET GT SCH (08:09)
[2020-02-14] MEDS: KEPPRA 500 MG GT SCH ×2 (08:09→21:31)
[2020-02-14] MEDS: APIXABAN 5 MG TABLET GT SCH ×2 (08:09→16:33)
[2020-02-14] MEDS: FERROUS SULFATE - FOR SA ONLY 330 MG/7.5 ML UDC GT SCH ×3 (08:09→16:33)
[2020-02-14] MEDS: SIROLIMUS 1 MG GT SCH (08:09)
[2020-02-14] MEDS: CLOTRIMAZOLE 1% 15 GM TUBE TP SCH ×2 (08:09→21:31)
[2020-02-14] MEDS: Z GUARD REMEDY 4 OZ OINT TP SCH ×2 (08:10→21:31)
[2020-02-14] MEDS: VITAMINS A AND D 56.7 GM TUBE TP SCH ×2 (08:10→21:31)
[2020-02-14] MEDS: HYDROGEN PEROXIDE 480 ML BOTTLE TP SCH ×2 (09:10→21:04)
[2020-02-14] MEDS: DIGOXIN 0.125 MG TABLET GT SCH (12:34)
--- NOTE | 2020-02-14 14:34 | NUR ---
Seen by SUPERINTENDENT REFUSE DISPOSAL Nadine Taylor. Notified her that pt completed Tobramycin. Asked her if pt needs to be kept on isolation for MDRO sputum. She said to refer to infection control nurse. Already left message for infection control nurse Amanda today.
--- NOTE | 2020-02-14 15:50 | NUR ---
Pt completed Tobramycin. Called Dr Milligan's office to ask him if pt still needs to be on isolation. Left message with his office staff.
[2020-02-14 20:02] VITALS: BP 115/51
[2020-02-14] MEDS: TAMSULOSIN 0.4 MG CAP.SR.24H GT SCH (21:31)
[2020-02-14] MEDS: LATANOPROST EYE DROP 0.005% 2.5 ML BOTTLE EACHEYE SCH (21:31)
[2020-02-14] MEDS: INSULIN DETEMIR 100 UNIT/ML CARTRIDGE SQ SCH (21:32)
[2020-02-15] MEDS: BLOOD SUGAR DIAGNOSTIC 1 EACH STRIP IN SCH ×4 (00:24→18:02)
[2020-02-15] MEDS: INSULIN ASPART/LISPRO 100 UNIT/ML CARTRIDGE SQ PRN ×4 (00:26→18:02)
[2020-02-15] MEDS: LEVOTHYROXINE SODIUM 50 MCG TABLET GT SCH (05:47)
[2020-02-15] MEDS: OMEPRAZOLE 20 MG CAPSULE.DR GT SCH (05:47)
[2020-02-15 07:20] VITALS: BP 152/81
[2020-02-15] MEDS: glipiZIDE 5 MG TABLET GT SCH ×2 (07:30→16:30)
[2020-02-15] MEDS: ALBUTEROL HALF STRENGTH 1.25 MG/3 ML VIAL.NEB NEB PRN (07:53)
[2020-02-15] MEDS: HYDROGEN PEROXIDE 480 ML BOTTLE TP SCH ×2 (09:00→21:27)
[2020-02-15] MEDS: FERROUS SULFATE - FOR SA ONLY 330 MG/7.5 ML UDC GT SCH ×3 (09:46→17:44)
[2020-02-15] MEDS: APIXABAN 5 MG TABLET GT SCH ×2 (09:46→17:44)
[2020-02-15] MEDS: KEPPRA 500 MG GT SCH ×2 (09:46→21:21)
[2020-02-15] MEDS: SIROLIMUS 1 MG GT SCH (09:47)
[2020-02-15] MEDS: SITAGLIPTIN PHOSPHATE 50 MG TABLET GT SCH (09:47)
[2020-02-15] MEDS: Z GUARD REMEDY 2 OZ OINT TP SCH ×2 (09:47→21:21)
[2020-02-15] MEDS: Z GUARD REMEDY 4 OZ OINT TP SCH ×2 (09:47→21:21)
[2020-02-15] MEDS: VITAMINS A AND D 56.7 GM TUBE TP SCH ×2 (09:47→21:21)
--- NOTE | 2020-02-15 12:00 | NUR ---
Notified Dr. Alicea that resident has thick secretions with order to give routine breathing treatment via nebulizer of Albuterol/Atrovent Q 6h x 7days. Orders carried out.
[2020-02-15] MEDS: DIGOXIN 0.125 MG TABLET GT SCH (12:47)
[2020-02-15] MEDS: ALBUTEROL FS 2.5 MG/3 ML VIAL.NEB NEB SCH ×2 (14:02→19:25)
[2020-02-15] MEDS: IPRATROPIUM NEB FS 0.5 MG/2.5 ML AMPUL.NEB NEB SCH ×2 (14:02→19:24)
--- NOTE | 2020-02-15 16:00 | NUR ---
Seen and examined by LENKA Taylor, with order to send sputum culture for isolation clearance. Specimen collected and sent to the lab.
[2020-02-15] MEDS: GLUCERNA 1.2 1,000 ML BOTTLE GT PRN (17:43)
[2020-02-15 20:10] VITALS: BP 110/74
[2020-02-15] MEDS: TAMSULOSIN 0.4 MG CAP.SR.24H GT SCH (21:21)
[2020-02-15] MEDS: LATANOPROST EYE DROP 0.005% 2.5 ML BOTTLE EACHEYE SCH (21:21)
[2020-02-15] MEDS: INSULIN DETEMIR 100 UNIT/ML CARTRIDGE SQ SCH (21:22)
[2020-02-16] MEDS: BLOOD SUGAR DIAGNOSTIC 1 EACH STRIP IN SCH ×5 (00:21→23:19)
[2020-02-16] MEDS: INSULIN ASPART/LISPRO 100 UNIT/ML CARTRIDGE SQ PRN ×5 (00:22→23:20)
[2020-02-16] MEDS: IPRATROPIUM NEB FS 0.5 MG/2.5 ML AMPUL.NEB NEB SCH ×4 (01:30→20:09)
[2020-02-16] MEDS: ALBUTEROL FS 2.5 MG/3 ML VIAL.NEB NEB SCH ×4 (01:30→20:09)
[2020-02-16] MEDS: OMEPRAZOLE 20 MG CAPSULE.DR GT SCH (05:58)
[2020-02-16] MEDS: LEVOTHYROXINE SODIUM 50 MCG TABLET GT SCH (05:58)
[2020-02-16 07:10] LABS: BASOPHILS % (AUTO) 0.5 % (0.0-2.0); EOSINOPHILS % (AUTO) 2.5 % (0.0-6.0); HEMATOCRIT 27 % (39-51); HEMOGLOBIN 8.4 g/dL (13.5-17.5); LYMPHOCYTES # (AUTO) 0.9 /CMM (0.8-4.8); LYMPHOCYTES % (AUTO) 15.4 % (20.0-44.0); MEAN CORPUSCULAR HGB CONC 32 g/dl (31.0-36.0); MEAN CORPUSCULAR VOLUME 89 fL (80-96); MONOCYTES # (AUTO) 0.7 /CMM (0.1-1.30); MONOCYTES % (AUTO) 11.4 % (2.0-12.0); NEUTROPHILS # (AUTO) 4.3 /CMM (1.8-8.9); NEUTROPHILS % (AUTO) 70.2 % (43.0-81.0); PLATELET COUNT (AUTO) 222 /CMM (150-450); WHITE BLOOD COUNT (AUTO) 6.1 K/uL (4.3-11.0)
[2020-02-16 07:24] LABS: CALCIUM, SERUM 9.7 mg/dL (8.5-10.1); CREATININE 1.1 mg/dL (0.6-1.3)
[2020-02-16 07:29] VITALS: BP 147/70
[2020-02-16] MEDS: glipiZIDE 5 MG TABLET GT SCH ×2 (08:24→16:43)
[2020-02-16] MEDS: FERROUS SULFATE - FOR SA ONLY 330 MG/7.5 ML UDC GT SCH ×3 (08:24→16:43)
[2020-02-16] MEDS: APIXABAN 5 MG TABLET GT SCH ×2 (08:24→16:43)
[2020-02-16] MEDS: VITAMINS A AND D 56.7 GM TUBE TP SCH ×2 (08:25→20:44)
[2020-02-16] MEDS: KEPPRA 500 MG GT SCH ×2 (08:25→20:44)
[2020-02-16] MEDS: SITAGLIPTIN PHOSPHATE 50 MG TABLET GT SCH (08:25)
[2020-02-16] MEDS: SIROLIMUS 1 MG GT SCH (08:25)
[2020-02-16] MEDS: Z GUARD REMEDY 4 OZ OINT TP SCH ×2 (08:25→20:44)
[2020-02-16] MEDS: Z GUARD REMEDY 2 OZ OINT TP SCH ×2 (08:25→20:44)
[2020-02-16] MEDS: HYDROGEN PEROXIDE 480 ML BOTTLE TP SCH ×2 (09:15→21:00)
[2020-02-16] MEDS: DIGOXIN 0.125 MG TABLET GT SCH (12:06)
[2020-02-16] MEDS: GLUCERNA 1.2 1,000 ML BOTTLE GT PRN (16:43)
--- NOTE | 2020-02-16 17:18 | NUR ---
RT NOTE PATIENT RECEIVED ON MECHANICAL VENT WITH ORDERED SETTINGS, TOLERATING WELL. ALARMS ON AND AUDIBLE. VENT PLUGGED IN TO THE RED OUTLET. TRACH TUBE IN PLACE, PATENT, AND SECURED WITH TRACH TIE. AMBU BAG AND BACK UP TRACH BY THE BEDSIDE. NO DISTRESS AT THIS TIME. MONITOR THROUGHOUT SHIFT.
[2020-02-16 20:11] VITALS: BP 126/70
[2020-02-16] MEDS: TAMSULOSIN 0.4 MG CAP.SR.24H GT SCH (21:02)
[2020-02-16] MEDS: LATANOPROST EYE DROP 0.005% 2.5 ML BOTTLE EACHEYE SCH (21:02)
[2020-02-16] MEDS: INSULIN DETEMIR 100 UNIT/ML CARTRIDGE SQ SCH (21:03)
[2020-02-17] MEDS: ALBUTEROL FS 2.5 MG/3 ML VIAL.NEB NEB SCH ×4 (01:51→19:37)
[2020-02-17] MEDS: IPRATROPIUM NEB FS 0.5 MG/2.5 ML AMPUL.NEB NEB SCH ×4 (01:51→19:37)
[2020-02-17] MEDS: LEVOTHYROXINE SODIUM 50 MCG TABLET GT SCH (05:08)
[2020-02-17] MEDS: OMEPRAZOLE 20 MG CAPSULE.DR GT SCH (05:08)
[2020-02-17] MEDS: BLOOD SUGAR DIAGNOSTIC 1 EACH STRIP IN SCH ×4 (05:26→23:54)
[2020-02-17] MEDS: INSULIN ASPART/LISPRO 100 UNIT/ML CARTRIDGE SQ PRN ×4 (05:27→23:55)
[2020-02-17] MEDS: glipiZIDE 5 MG TABLET GT SCH ×2 (07:30→17:29)
[2020-02-17 07:57] VITALS: BP 94/63
[2020-02-17] MEDS: FERROUS SULFATE - FOR SA ONLY 330 MG/7.5 ML UDC GT SCH ×3 (08:52→17:29)
[2020-02-17] MEDS: KEPPRA 500 MG GT SCH ×2 (08:52→21:01)
[2020-02-17] MEDS: APIXABAN 5 MG TABLET GT SCH ×2 (08:52→17:29)
[2020-02-17] MEDS: SITAGLIPTIN PHOSPHATE 50 MG TABLET GT SCH (08:52)
[2020-02-17] MEDS: Z GUARD REMEDY 2 OZ OINT TP SCH ×2 (08:52→21:01)
[2020-02-17] MEDS: SIROLIMUS 1 MG GT SCH (08:52)
[2020-02-17] MEDS: VITAMINS A AND D 56.7 GM TUBE TP SCH ×2 (08:53→21:01)
[2020-02-17] MEDS: Z GUARD REMEDY 4 OZ OINT TP SCH ×2 (08:53→21:01)
[2020-02-17] MEDS: HYDROGEN PEROXIDE 480 ML BOTTLE TP SCH ×2 (09:11→21:00)
--- NOTE | 2020-02-17 10:15 | NUR ---
Chest x-ray result relayed to Laura Ocampo, HYDROTECHNICAL SPECIALIST, said she will review when she come in later. Resident noted with low grade fever 99.6F. Cooling measures done. No signs of distress. Resp. even and unlabored. Will continue to monitor.
[2020-02-17] MEDS: DIGOXIN 0.125 MG TABLET GT SCH (13:00)
--- NOTE | 2020-02-17 13:00 | NUR ---
Seen and examined by Laura Ocampo, ETL DATABASE DEVELOPER reviewed CXR result, no new order given.
[2020-02-17] MEDS: GLUCERNA 1.2 1,000 ML BOTTLE GT PRN (14:58)
[2020-02-17 20:44] VITALS: BP 120/70
[2020-02-17] MEDS: LATANOPROST EYE DROP 0.005% 2.5 ML BOTTLE EACHEYE SCH (21:01)
[2020-02-17] MEDS: TAMSULOSIN 0.4 MG CAP.SR.24H GT SCH (21:01)
[2020-02-17] MEDS: INSULIN DETEMIR 100 UNIT/ML CARTRIDGE SQ SCH (21:02)
[2020-02-18] MEDS: IPRATROPIUM NEB FS 0.5 MG/2.5 ML AMPUL.NEB NEB SCH ×4 (01:30→19:56)
[2020-02-18] MEDS: ALBUTEROL FS 2.5 MG/3 ML VIAL.NEB NEB SCH ×4 (01:30→19:56)
[2020-02-18] MEDS: LEVOTHYROXINE SODIUM 50 MCG TABLET GT SCH (05:38)
[2020-02-18] MEDS: OMEPRAZOLE 20 MG CAPSULE.DR GT SCH (05:38)
[2020-02-18] MEDS: BLOOD SUGAR DIAGNOSTIC 1 EACH STRIP IN SCH ×4 (05:38→23:43)
[2020-02-18] MEDS: INSULIN ASPART/LISPRO 100 UNIT/ML CARTRIDGE SQ PRN ×4 (05:39→23:44)
[2020-02-18 07:25] VITALS: BP 118/55
[2020-02-18] MEDS: glipiZIDE 5 MG TABLET GT SCH ×2 (07:30→17:28)
[2020-02-18] MEDS: HYDROGEN PEROXIDE 480 ML BOTTLE TP SCH ×2 (08:22→21:00)
[2020-02-18] MEDS: APIXABAN 5 MG TABLET GT SCH ×2 (08:40→17:28)
[2020-02-18] MEDS: SITAGLIPTIN PHOSPHATE 50 MG TABLET GT SCH (08:41)
[2020-02-18] MEDS: SIROLIMUS 1 MG GT SCH (08:41)
[2020-02-18] MEDS: Z GUARD REMEDY 4 OZ OINT TP SCH ×2 (08:41→21:00)
[2020-02-18] MEDS: KEPPRA 500 MG GT SCH ×2 (08:41→20:52)
[2020-02-18] MEDS: VITAMINS A AND D 56.7 GM TUBE TP SCH ×2 (08:41→21:00)
[2020-02-18] MEDS: Z GUARD REMEDY 2 OZ OINT TP SCH ×2 (08:41→21:00)
[2020-02-18] MEDS: FERROUS SULFATE - FOR SA ONLY 330 MG/7.5 ML UDC GT SCH ×3 (08:41→17:29)
[2020-02-18] MEDS: DIGOXIN 0.125 MG TABLET GT SCH (13:19)
[2020-02-18] MEDS: ACETAMINOPHEN 650 MG/20 ML UDC- SA PATIENTS-FEVER ONLY GT PRN (13:21)
--- NOTE | 2020-02-18 13:40 | NUR ---
Seen by LENKA Taylor. Notified her of temp 100.5 F this morning. Rechecked temp this noon and it was 100 F. She ordered labs and toscano cultures. Notified
[2020-02-18 14:05] LABS: BASOPHILS # (AUTO) 0.1 /CMM (0.0-0.2); EOSINOPHILS % (AUTO) 2.8 % (0.0-6.0); HEMATOCRIT 26 % (39-51); HEMOGLOBIN 8.2 g/dL (13.5-17.5); LYMPHOCYTES # (AUTO) 1.5 /CMM (0.8-4.8); LYMPHOCYTES % (AUTO) 16.6 % (20.0-44.0); MEAN CORPUSCULAR HGB CONC 32 g/dl (31.0-36.0); MEAN CORPUSCULAR VOLUME 88 fL (80-96); MONOCYTES # (AUTO) 0.9 /CMM (0.1-1.30); MONOCYTES % (AUTO) 9.9 % (2.0-12.0); NEUTROPHILS # (AUTO) 6.2 /CMM (1.8-8.9); NEUTROPHILS % (AUTO) 69.7 % (43.0-81.0); PLATELET COUNT (AUTO) 182 /CMM (150-450); WHITE BLOOD COUNT (AUTO) 8.8 K/uL (4.3-11.0)
[2020-02-18 14:46] LABS: CALCIUM, SERUM 9.3 mg/dL (8.5-10.1); CREATININE 1.3 mg/dL (0.6-1.3); POTASSIUM 3.8 mmol/L (3.5-5.1)
[2020-02-18 15:43] LABS: APPEARANCE,URINE SL CLOUDY (CLEAR); BILIRUBIN,URINE NEGATIVE (NEGATIVE); BLOOD, URINE SMALL Ery/uL (NEGATIVE); COLOR,URINE YELLOW (YELLOW); KETONES,URINE NEGATIVE (NEGATIVE); LEUKOCYTE ESTERASE ,URINE MODERATE (NEGATIVE); NITRITE, URINE NEGATIVE (NEGATIVE); PH,URINE 7.5 (5.0-8.0); PROTEIN,URINE 30 mg/dl (NEGATIVE); UGLUCOSE NEGATIVE (NEGATIVE); UROBILINOGEN,URINE 0.2 EU/dL (0.2)
--- NOTE | 2020-02-18 15:44 | NUR ---
Seen by ELECTRIC REPAIR SUPERVISOR Nadine Taylor. Received order to do CXR.
--- NOTE | 2020-02-18 15:45 | NUR ---
Pt's temp 99.4 F. No respiratory distress noted. Pt appears comfortable.
[2020-02-18 15:50] LABS: BACTERIA,URINE 3+ /HPF (None Seen); SQUAMOUS EPITHELIAL CELL,UR Few /HPF (None Seen); WBC,URINE TOO NUMEROUS TO COUN /HPF (0-3)
[2020-02-18 20:25] VITALS: BP 100/66
[2020-02-18] MEDS: LATANOPROST EYE DROP 0.005% 2.5 ML BOTTLE EACHEYE SCH (21:00)
[2020-02-18] MEDS: TAMSULOSIN 0.4 MG CAP.SR.24H GT SCH (21:00)
[2020-02-18] MEDS: INSULIN DETEMIR 100 UNIT/ML CARTRIDGE SQ SCH (21:01)
[2020-02-19] MEDS: IPRATROPIUM NEB FS 0.5 MG/2.5 ML AMPUL.NEB NEB SCH ×4 (02:00→19:35)
[2020-02-19] MEDS: ALBUTEROL FS 2.5 MG/3 ML VIAL.NEB NEB SCH ×4 (02:00→19:35)
[2020-02-19] MEDS: OMEPRAZOLE 20 MG CAPSULE.DR GT SCH (05:25)
[2020-02-19] MEDS: BLOOD SUGAR DIAGNOSTIC 1 EACH STRIP IN SCH ×4 (05:25→23:32)
[2020-02-19] MEDS: LEVOTHYROXINE SODIUM 50 MCG TABLET GT SCH (05:25)
[2020-02-19] MEDS: INSULIN ASPART/LISPRO 100 UNIT/ML CARTRIDGE SQ PRN ×4 (05:26→23:35)
--- NOTE | 2020-02-19 06:30 | NUR ---
RN NOTES No fever throughout shift. Temp 98.7 at this time.
[2020-02-19 07:30] VITALS: BP 143/77
[2020-02-19] MEDS: glipiZIDE 5 MG TABLET GT SCH ×2 (07:30→16:35)
--- NOTE | 2020-02-19 08:57 | NUR ---
Seen by Dr Alicea. Relayed CXR result to him. He said he will take a look at it. Notified him of temp 100.8 F. Schultz cultures still pending. No new order at this time.
[2020-02-19] MEDS: SITAGLIPTIN PHOSPHATE 50 MG TABLET GT SCH (08:59)
[2020-02-19] MEDS: KEPPRA 500 MG GT SCH ×2 (08:59→20:11)
[2020-02-19] MEDS: SIROLIMUS 1 MG GT SCH (08:59)
[2020-02-19] MEDS: FERROUS SULFATE - FOR SA ONLY 330 MG/7.5 ML UDC GT SCH ×3 (08:59→16:35)
[2020-02-19] MEDS: APIXABAN 5 MG TABLET GT SCH ×2 (08:59→16:35)
[2020-02-19] MEDS: VITAMINS A AND D 56.7 GM TUBE TP SCH ×2 (09:00→20:12)
[2020-02-19] MEDS: HYDROGEN PEROXIDE 480 ML BOTTLE TP SCH ×2 (09:00→20:11)
[2020-02-19] MEDS: Z GUARD REMEDY 4 OZ OINT TP SCH ×2 (09:00→20:12)
[2020-02-19] MEDS: Z GUARD REMEDY 2 OZ OINT TP SCH ×2 (09:00→20:12)
--- NOTE | 2020-02-19 11:20 | NUR ---
Faxed prior authorization form for Digoxin to Dr Mak's office yesterday . Followed up if Dr Mak has already gotten it and filled it out. Spoke with Elina who said that she still needs to check the papers. Called [facility] pharmacy and spoke with Ingris regarding the prior authorization for Digoxin. She said they have not yet received the form from the doctor but she will fax it again to Dr Mak's office and follow-up on it.
[2020-02-19] MEDS: DIGOXIN 0.125 MG TABLET GT SCH (13:00)
--- NOTE | 2020-02-19 15:38 | NUR ---
Informed Consent for [employer] System:SW called the patient's son, Trevon Albrecht [phone] [email or web address] to inform him about [employer] and obtain verbal consent if he agrees. Trevon expressed understanding and this SW addressed all of Trevon's questions. Trevon gave this SW verbal consent for [employer] system to be used for his patient. Primer Waterproofing Machine Operator, Marcela Jones witnessed verbal consent. Consent form filed in patient's chart.
--- NOTE | 2020-02-19 16:00 | NUR ---
Received order from LENKA Taylor to give Meropenem 1 gm IV q 8 hours x 5 days for UTI and fever. Notifla Lester. Addendum: 02/19/20 at 1921 by IRENE DONIS RN Meropenem 1 gm IV administered, took first dose from e-kit.
[2020-02-19] MEDS: MEROPENEM 1 G in IV NS 0.9% 100 ML IV SCH (19:00)
--- NOTE | 2020-02-19 19:02 | NUR ---
[facility] IV pharmacist Lori called to recommend decreasing Meropenem 1 gm IV q 8 to q 12 hours due to renal function. Called PLATE STRAIGHTENER Clementina Taylor. She agreed to the recommendation.
[2020-02-19 19:59] VITALS: BP 122/66
[2020-02-19 20:00] VITALS: BP 122/66
[2020-02-19] MEDS: LATANOPROST EYE DROP 0.005% 2.5 ML BOTTLE EACHEYE SCH (21:06)
[2020-02-19] MEDS: TAMSULOSIN 0.4 MG CAP.SR.24H GT SCH (21:06)
[2020-02-19] MEDS: INSULIN DETEMIR 100 UNIT/ML CARTRIDGE SQ SCH (21:37)
[2020-02-20] MEDS: ALBUTEROL FS 2.5 MG/3 ML VIAL.NEB NEB SCH ×4 (01:30→19:30)
[2020-02-20] MEDS: IPRATROPIUM NEB FS 0.5 MG/2.5 ML AMPUL.NEB NEB SCH ×4 (01:30→19:30)
[2020-02-20] MEDS: LEVOTHYROXINE SODIUM 50 MCG TABLET GT SCH (05:25)
[2020-02-20] MEDS: OMEPRAZOLE 20 MG CAPSULE.DR GT SCH (05:25)
[2020-02-20] MEDS: BLOOD SUGAR DIAGNOSTIC 1 EACH STRIP IN SCH ×4 (05:31→23:31)
[2020-02-20] MEDS: INSULIN ASPART/LISPRO 100 UNIT/ML CARTRIDGE SQ PRN ×4 (05:40→23:33)
[2020-02-20] MEDS: MEROPENEM 1 G in IV NS 0.9% 100 ML IV SCH (06:48)
--- NOTE | 2020-02-20 07:16 | NUR ---
RN NOTES On Merrem 1gm Q12hr, as ordered, with no A/R noted. Afebrile, latest temp 98.9.
[2020-02-20 07:29] LABS: IRON, SERUM 37 ug/dl (50-175); TOTAL IRON BINDING CAPACITY 235 ug/dl (250-450)
[2020-02-20] MEDS: glipiZIDE 5 MG TABLET GT SCH ×2 (07:30→17:08)
[2020-02-20 07:31] LABS: FERRITIN 813 ng/mL (8-388)
[2020-02-20 07:39] LABS: BASOPHILS % (AUTO) 0.6 % (0.0-2.0); EOSINOPHILS % (AUTO) 4.7 % (0.0-6.0); HEMATOCRIT 26 % (39-51); HEMOGLOBIN 8.3 g/dL (13.5-17.5); LYMPHOCYTES % (AUTO) 15.5 % (20.0-44.0); MEAN CORPUSCULAR HGB CONC 32 g/dl (31.0-36.0); MEAN CORPUSCULAR VOLUME 88 fL (80-96); MONOCYTES # (AUTO) 0.7 /CMM (0.1-1.30); MONOCYTES % (AUTO) 10.4 % (2.0-12.0); NEUTROPHILS # (AUTO) 4.5 /CMM (1.8-8.9); NEUTROPHILS % (AUTO) 68.8 % (43.0-81.0); PLATELET COUNT (AUTO) 177 /CMM (150-450); RED BLOOD CELL COUNT(AUTO) 2.96 MIL/uL (4.5-6.0); WHITE BLOOD COUNT (AUTO) 6.6 K/uL (4.3-11.0)
[2020-02-20 08:00] VITALS: BP 131/73
[2020-02-20] MEDS: SIROLIMUS 1 MG GT SCH (09:54)
[2020-02-20] MEDS: FERROUS SULFATE - FOR SA ONLY 330 MG/7.5 ML UDC GT SCH ×3 (09:54→17:09)
[2020-02-20] MEDS: SITAGLIPTIN PHOSPHATE 50 MG TABLET GT SCH (09:54)
[2020-02-20] MEDS: APIXABAN 5 MG TABLET GT SCH ×2 (09:54→17:09)
[2020-02-20] MEDS: KEPPRA 500 MG GT SCH ×2 (09:54→21:18)
[2020-02-20] MEDS: Z GUARD REMEDY 2 OZ OINT TP SCH ×2 (09:55→21:18)
[2020-02-20] MEDS: VITAMINS A AND D 56.7 GM TUBE TP SCH ×2 (09:55→21:18)
[2020-02-20] MEDS: Z GUARD REMEDY 4 OZ OINT TP SCH ×2 (09:55→21:18)
[2020-02-20] MEDS: DIGOXIN 0.125 MG TABLET GT SCH (13:00)
--- NOTE | 2020-02-20 14:45 | NUR ---
Relayed final urine culture result to Dr. Milligan with new order to DC Merrem and start patient on Cefazolin 1 gm. Q 8 hours instead for 3 days. MD also DC isolation after reviewing microbiology results. Order carried out. Family informed.
[2020-02-20] MEDS: CEFAZOLIN 1 GM in IV NS 0.9% 50 ML IV SCH (18:48)
[2020-02-20 20:16] VITALS: BP 131/69
[2020-02-20] MEDS: LATANOPROST EYE DROP 0.005% 2.5 ML BOTTLE EACHEYE SCH (21:18)
[2020-02-20] MEDS: HYDROGEN PEROXIDE 480 ML BOTTLE TP SCH (21:18)
[2020-02-20] MEDS: TAMSULOSIN 0.4 MG CAP.SR.24H GT SCH (21:19)
[2020-02-20] MEDS: INSULIN DETEMIR 100 UNIT/ML CARTRIDGE SQ SCH (21:20)
[2020-02-21] MEDS: ALBUTEROL FS 2.5 MG/3 ML VIAL.NEB NEB SCH ×3 (01:15→19:54)
[2020-02-21] MEDS: IPRATROPIUM NEB FS 0.5 MG/2.5 ML AMPUL.NEB NEB SCH ×3 (01:15→19:54)
[2020-02-21] MEDS: CEFAZOLIN 1 GM in IV NS 0.9% 50 ML IV SCH ×3 (02:06→17:48)
[2020-02-21] MEDS: GLUCERNA 1.2 1,000 ML BOTTLE GT PRN (02:30)
[2020-02-21] MEDS: LEVOTHYROXINE SODIUM 50 MCG TABLET GT SCH (05:39)
[2020-02-21] MEDS: BLOOD SUGAR DIAGNOSTIC 1 EACH STRIP IN SCH ×3 (05:39→17:44)
[2020-02-21] MEDS: OMEPRAZOLE 20 MG CAPSULE.DR GT SCH (05:39)
[2020-02-21] MEDS: INSULIN ASPART/LISPRO 100 UNIT/ML CARTRIDGE SQ PRN ×2 (05:40→17:45)
[2020-02-21 07:41] VITALS: BP 110/51
[2020-02-21] MEDS: APIXABAN 5 MG TABLET GT SCH ×2 (08:17→16:35)
[2020-02-21] MEDS: glipiZIDE 5 MG TABLET GT SCH ×2 (08:17→16:35)
[2020-02-21] MEDS: KEPPRA 500 MG GT SCH ×2 (08:18→20:48)
[2020-02-21] MEDS: Z GUARD REMEDY 2 OZ OINT TP SCH ×2 (08:18→20:48)
[2020-02-21] MEDS: Z GUARD REMEDY 4 OZ OINT TP SCH ×2 (08:18→20:48)
[2020-02-21] MEDS: SITAGLIPTIN PHOSPHATE 50 MG TABLET GT SCH (08:18)
[2020-02-21] MEDS: VITAMINS A AND D 56.7 GM TUBE TP SCH ×2 (08:18→20:48)
[2020-02-21] MEDS: FERROUS SULFATE - FOR SA ONLY 330 MG/7.5 ML UDC GT SCH ×3 (08:18→16:35)
[2020-02-21] MEDS: SIROLIMUS 1 MG GT SCH (08:18)
[2020-02-21] MEDS: DIGOXIN 0.125 MG TABLET GT SCH (12:39)
[2020-02-21 14:00] LABS: OCCULT BLOOD STOOL NEGATIVE (NEGATIVE)
--- NOTE | 2020-02-21 15:27 | NUR ---
Family Invitation to IDT: This SW called the patients son, Trevon Albrecht [phone] to invite them to participate in IDT 02/22/2020 12:30pm. However, the call went to voicemail and SW left call back number.
--- NOTE | 2020-02-21 18:44 | NUR ---
Seen by RECOATING MACHINE OPERATOR Nadine Taylor. Relayed CXR result to her. No new order.
[2020-02-21 19:44] VITALS: BP 117/54
--- NOTE | 2020-02-21 20:01 | NUR ---
PT RCVD TRACH'D ON MECHANICAL VENT WITH NOTED SETTINGS. BREATHING TX GIVEN . NO ADVERSE REACTION NOTED. SX DONE. PT TRACH IS PATENT AND SECURE. VENT ALARMS ARE ON AND AUDIBLE. VENT PLUGGED INTO RED OUTLET. AMBU BAG AT BEDSIDE. NO SOB NOTED OR RESPIRATORY DISTRESS NOTED. WILL CONTINUE TO MONITOR THE PT T/O SHIFT.
[2020-02-21] MEDS: HYDROGEN PEROXIDE 480 ML BOTTLE TP SCH (21:00)
[2020-02-21] MEDS: LATANOPROST EYE DROP 0.005% 2.5 ML BOTTLE EACHEYE SCH (21:50)
[2020-02-21] MEDS: TAMSULOSIN 0.4 MG CAP.SR.24H GT SCH (21:50)
[2020-02-21] MEDS: INSULIN DETEMIR 100 UNIT/ML CARTRIDGE SQ SCH (21:51)
[2020-02-22] MEDS: BLOOD SUGAR DIAGNOSTIC 1 EACH STRIP IN SCH ×5 (00:08→23:58)
[2020-02-22] MEDS: INSULIN ASPART/LISPRO 100 UNIT/ML CARTRIDGE SQ PRN ×5 (00:10→23:59)
[2020-02-22] MEDS: CEFAZOLIN 1 GM in IV NS 0.9% 50 ML IV SCH ×3 (02:00→18:37)
[2020-02-22] MEDS: LEVOTHYROXINE SODIUM 50 MCG TABLET GT SCH (05:25)
[2020-02-22] MEDS: OMEPRAZOLE 20 MG CAPSULE.DR GT SCH (05:25)
[2020-02-22] MEDS: GLUCERNA 1.2 1,000 ML BOTTLE GT PRN (05:25)
[2020-02-22] MEDS: glipiZIDE 5 MG TABLET GT SCH ×2 (07:30→16:30)
[2020-02-22 08:04] VITALS: BP 126/72
[2020-02-22] MEDS: Z GUARD REMEDY 2 OZ OINT TP SCH ×2 (09:16→21:10)
[2020-02-22] MEDS: FERROUS SULFATE - FOR SA ONLY 330 MG/7.5 ML UDC GT SCH ×3 (09:16→17:34)
[2020-02-22] MEDS: APIXABAN 5 MG TABLET GT SCH ×2 (09:16→17:34)
[2020-02-22] MEDS: SITAGLIPTIN PHOSPHATE 50 MG TABLET GT SCH (09:16)
[2020-02-22] MEDS: Z GUARD REMEDY 4 OZ OINT TP SCH ×2 (09:16→21:10)
[2020-02-22] MEDS: VITAMINS A AND D 56.7 GM TUBE TP SCH ×2 (09:16→21:10)
[2020-02-22] MEDS: KEPPRA 500 MG GT SCH ×2 (09:16→21:10)
[2020-02-22] MEDS: SIROLIMUS 1 MG GT SCH (09:16)
[2020-02-22] MEDS: HYDROGEN PEROXIDE 480 ML BOTTLE TP SCH ×2 (09:40→20:51)
[2020-02-22 12:10] LABS: OCCULT BLOOD STOOL NEGATIVE (NEGATIVE)
[2020-02-22] MEDS: ALBUTEROL HALF STRENGTH 1.25 MG/3 ML VIAL.NEB NEB PRN (12:14)
[2020-02-22] MEDS: DIGOXIN 0.125 MG TABLET GT SCH (12:20)
[2020-02-22] MEDS ORDERED: SOD FERRIC GLUC 125 MG in IV NS 0.9% 100 ML IV SCH (14:00)
--- NOTE | 2020-02-22 14:50 | NUR ---
Noted an order from Dr. Mak to start patient on Ferrlecit 125 mg IV Q 24 hours x [address] Mak today if lower extremities can be use for IV access, he said yes, but not the left arm with the old shunt. Endorsed. Resident's son informed.
--- NOTE | 2020-02-22 15:33 | NUR ---
INTERDISCIPLINARY PLAN OF CARE CONFERENCE took place today. The patients responsible constitution party/ Trevon Albrecht [phone] was not able to participate via phone conference. Charge nurse discussed improved sugar levels; 02/19 pt. started on Cefazolin for UTI. Dr. Alicea and Interdisciplinary team discussed the plan of care in detail. Current orders as well as treatments and medications were reviewed. Please see other disciplines IDT notes for further details.
[2020-02-22] MEDS: SOD FERRIC GLUC 125 MG in IV NS 0.9% 100 ML IV SCH (17:34)
[2020-02-22 19:48] VITALS: BP 141/66
--- NOTE | 2020-02-22 19:57 | NUR ---
PT RCVD TRACH'D ON MECHANICAL VENT WITH NOTED SETTINGS. SX DONE. PT TRACH IS PATENT AND SECURE. VENT ALARMS ARE ON AND AUDIBLE. VENT PLUGGED INTO RED OUTLET. AMBU BAG AT BEDSIDE. NO SOB NOTED OR RESPIRATORY DISTRESS NOTED. WILL CONTINUE TO MONITOR THE PT T/O SHIFT.
[2020-02-22] MEDS: LATANOPROST EYE DROP 0.005% 2.5 ML BOTTLE EACHEYE SCH (21:10)
[2020-02-22] MEDS: TAMSULOSIN 0.4 MG CAP.SR.24H GT SCH (21:10)
[2020-02-22] MEDS: INSULIN DETEMIR 100 UNIT/ML CARTRIDGE SQ SCH (21:32)
[2020-02-23] MEDS: CEFAZOLIN 1 GM in IV NS 0.9% 50 ML IV SCH ×2 (02:00→09:43)
[2020-02-23] MEDS: LEVOTHYROXINE SODIUM 50 MCG TABLET GT SCH (05:21)
[2020-02-23] MEDS: OMEPRAZOLE 20 MG CAPSULE.DR GT SCH (05:21)
[2020-02-23] MEDS: BLOOD SUGAR DIAGNOSTIC 1 EACH STRIP IN SCH ×3 (05:21→17:10)
[2020-02-23] MEDS: INSULIN ASPART/LISPRO 100 UNIT/ML CARTRIDGE SQ PRN ×3 (05:23→17:12)
[2020-02-23] MEDS: SIROLIMUS 1 MG GT SCH (08:21)
[2020-02-23] MEDS: APIXABAN 5 MG TABLET GT SCH ×2 (08:21→16:58)
[2020-02-23] MEDS: FERROUS SULFATE - FOR SA ONLY 330 MG/7.5 ML UDC GT SCH ×3 (08:21→16:58)
[2020-02-23] MEDS: KEPPRA 500 MG GT SCH ×2 (08:21→21:29)
[2020-02-23] MEDS: glipiZIDE 5 MG TABLET GT SCH ×2 (08:21→16:58)
[2020-02-23] MEDS: SITAGLIPTIN PHOSPHATE 50 MG TABLET GT SCH (08:22)
[2020-02-23] MEDS: HYDROGEN PEROXIDE 480 ML BOTTLE TP SCH ×2 (09:35→21:00)
[2020-02-23] MEDS: VITAMINS A AND D 56.7 GM TUBE TP SCH ×2 (09:43→20:33)
[2020-02-23] MEDS: Z GUARD REMEDY 4 OZ OINT TP SCH ×2 (09:43→20:33)
[2020-02-23] MEDS: Z GUARD REMEDY 2 OZ OINT TP SCH ×2 (09:43→21:29)
[2020-02-23 10:49] VITALS: BP 104/59
[2020-02-23] MEDS: DIGOXIN 0.125 MG TABLET GT SCH (12:37)
[2020-02-23] MEDS: GLUCERNA 1.2 1,000 ML BOTTLE GT PRN (12:37)
[2020-02-23] MEDS: SOD FERRIC GLUC 125 MG in IV NS 0.9% 100 ML IV SCH (14:47)
[2020-02-23 20:18] VITALS: BP 121/58
[2020-02-23] MEDS: LATANOPROST EYE DROP 0.005% 2.5 ML BOTTLE EACHEYE SCH (21:29)
[2020-02-23] MEDS: TAMSULOSIN 0.4 MG CAP.SR.24H GT SCH (21:29)
[2020-02-23] MEDS: INSULIN DETEMIR 100 UNIT/ML CARTRIDGE SQ SCH (21:31)
[2020-02-24] MEDS: OMEPRAZOLE 20 MG CAPSULE.DR GT SCH (05:07)
[2020-02-24] MEDS: LEVOTHYROXINE SODIUM 50 MCG TABLET GT SCH (05:07)
[2020-02-24] MEDS: BLOOD SUGAR DIAGNOSTIC 1 EACH STRIP IN SCH ×4 (05:23→18:33)
[2020-02-24] MEDS: INSULIN ASPART/LISPRO 100 UNIT/ML CARTRIDGE SQ PRN ×4 (05:24→18:34)
[2020-02-24] MEDS: glipiZIDE 5 MG TABLET GT SCH ×2 (07:30→17:01)
[2020-02-24 07:54] VITALS: BP 154/74
[2020-02-24] MEDS: HYDROGEN PEROXIDE 480 ML BOTTLE TP SCH ×2 (09:00→21:59)
[2020-02-24] MEDS: FERROUS SULFATE - FOR SA ONLY 330 MG/7.5 ML UDC GT SCH ×3 (09:10→17:02)
[2020-02-24] MEDS: KEPPRA 500 MG GT SCH ×2 (09:10→20:27)
[2020-02-24] MEDS: APIXABAN 5 MG TABLET GT SCH ×2 (09:10→17:02)
[2020-02-24] MEDS: SIROLIMUS 1 MG GT SCH (09:10)
[2020-02-24] MEDS: Z GUARD REMEDY 2 OZ OINT TP SCH ×2 (09:16→20:27)
[2020-02-24] MEDS: SITAGLIPTIN PHOSPHATE 50 MG TABLET GT SCH (09:16)
[2020-02-24] MEDS: VITAMINS A AND D 56.7 GM TUBE TP SCH ×2 (09:17→20:27)
[2020-02-24] MEDS: Z GUARD REMEDY 4 OZ OINT TP SCH ×2 (09:17→20:27)
[2020-02-24] MEDS: DIGOXIN 0.125 MG TABLET GT SCH (13:00)
[2020-02-24] MEDS: SOD FERRIC GLUC 125 MG in IV NS 0.9% 100 ML IV SCH (14:00)
[2020-02-24 19:39] VITALS: BP 127/59
[2020-02-24] MEDS: LATANOPROST EYE DROP 0.005% 2.5 ML BOTTLE EACHEYE SCH (21:14)
[2020-02-24] MEDS: TAMSULOSIN 0.4 MG CAP.SR.24H GT SCH (21:14)
[2020-02-24] MEDS: INSULIN DETEMIR 100 UNIT/ML CARTRIDGE SQ SCH (21:15)
[2020-02-25] MEDS: GLUCERNA 1.2 1,000 ML BOTTLE GT PRN (00:22)
[2020-02-25] MEDS: BLOOD SUGAR DIAGNOSTIC 1 EACH STRIP IN SCH ×5 (00:26→23:26)
[2020-02-25] MEDS: INSULIN ASPART/LISPRO 100 UNIT/ML CARTRIDGE SQ PRN ×5 (00:26→23:27)
[2020-02-25] MEDS: OMEPRAZOLE 20 MG CAPSULE.DR GT SCH (05:29)
[2020-02-25] MEDS: LEVOTHYROXINE SODIUM 50 MCG TABLET GT SCH (05:29)
[2020-02-25] MEDS: glipiZIDE 5 MG TABLET GT SCH ×2 (07:30→16:56)
[2020-02-25] MEDS: HYDROGEN PEROXIDE 480 ML BOTTLE TP SCH ×2 (09:00→21:57)
[2020-02-25] MEDS: SITAGLIPTIN PHOSPHATE 50 MG TABLET GT SCH (09:47)
[2020-02-25] MEDS: APIXABAN 5 MG TABLET GT SCH ×2 (09:47→16:56)
[2020-02-25] MEDS: FERROUS SULFATE - FOR SA ONLY 330 MG/7.5 ML UDC GT SCH ×3 (09:47→16:56)
[2020-02-25] MEDS: Z GUARD REMEDY 2 OZ OINT TP SCH ×2 (09:47→21:19)
[2020-02-25] MEDS: KEPPRA 500 MG GT SCH ×2 (09:47→21:19)
[2020-02-25] MEDS: SIROLIMUS 1 MG GT SCH (09:47)
[2020-02-25] MEDS: VITAMINS A AND D 56.7 GM TUBE TP SCH ×2 (09:48→21:20)
[2020-02-25] MEDS: Z GUARD REMEDY 4 OZ OINT TP SCH ×2 (09:48→21:20)
[2020-02-25 12:08] VITALS: BP 124/59
[2020-02-25] MEDS: DIGOXIN 0.125 MG TABLET GT SCH (13:00)
[2020-02-25] MEDS: SOD FERRIC GLUC 125 MG in IV NS 0.9% 100 ML IV SCH (14:54)
[2020-02-25 19:51] VITALS: BP 116/57
[2020-02-25] MEDS: TAMSULOSIN 0.4 MG CAP.SR.24H GT SCH (21:20)
[2020-02-25] MEDS: LATANOPROST EYE DROP 0.005% 2.5 ML BOTTLE EACHEYE SCH (21:20)
[2020-02-25] MEDS: INSULIN DETEMIR 100 UNIT/ML CARTRIDGE SQ SCH (21:21)
[2020-02-26] MEDS: GLUCERNA 1.2 1,000 ML BOTTLE GT PRN (05:05)
[2020-02-26] MEDS: OMEPRAZOLE 20 MG CAPSULE.DR GT SCH (05:05)
[2020-02-26] MEDS: LEVOTHYROXINE SODIUM 50 MCG TABLET GT SCH (05:05)
[2020-02-26] MEDS: BLOOD SUGAR DIAGNOSTIC 1 EACH STRIP IN SCH ×4 (06:09→23:57)
[2020-02-26] MEDS: INSULIN ASPART/LISPRO 100 UNIT/ML CARTRIDGE SQ PRN ×4 (06:11→23:58)
[2020-02-26 07:21] VITALS: BP 108/45
[2020-02-26] MEDS: glipiZIDE 5 MG TABLET GT SCH ×2 (07:30→17:11)
[2020-02-26] MEDS: HYDROGEN PEROXIDE 480 ML BOTTLE TP SCH ×2 (09:00→21:00)
[2020-02-26] MEDS: APIXABAN 5 MG TABLET GT SCH ×2 (09:14→17:12)
[2020-02-26] MEDS: Z GUARD REMEDY 4 OZ OINT TP SCH ×2 (09:15→21:26)
[2020-02-26] MEDS: SIROLIMUS 1 MG GT SCH (09:15)
[2020-02-26] MEDS: FERROUS SULFATE - FOR SA ONLY 330 MG/7.5 ML UDC GT SCH ×3 (09:15→17:12)
[2020-02-26] MEDS: SITAGLIPTIN PHOSPHATE 50 MG TABLET GT SCH (09:15)
[2020-02-26] MEDS: KEPPRA 500 MG GT SCH ×2 (09:15→21:26)
[2020-02-26] MEDS: Z GUARD REMEDY 2 OZ OINT TP SCH ×2 (09:15→21:26)
[2020-02-26] MEDS: VITAMINS A AND D 56.7 GM TUBE TP SCH ×2 (09:16→21:26)
--- NOTE | 2020-02-26 12:24 | NUR ---
Seen by LENKA Taylor. Notified her of temp 99.6 F. No new order.
[2020-02-26] MEDS: DIGOXIN 0.125 MG TABLET GT SCH (13:00)
[2020-02-26] MEDS: SOD FERRIC GLUC 125 MG in IV NS 0.9% 100 ML IV SCH (13:25)
[2020-02-26 19:58] VITALS: BP 131/76
[2020-02-26] MEDS: LATANOPROST EYE DROP 0.005% 2.5 ML BOTTLE EACHEYE SCH (21:27)
[2020-02-26] MEDS: TAMSULOSIN 0.4 MG CAP.SR.24H GT SCH (21:27)
[2020-02-26] MEDS: INSULIN DETEMIR 100 UNIT/ML CARTRIDGE SQ SCH (21:28)
[2020-02-27] MEDS: LEVOTHYROXINE SODIUM 50 MCG TABLET GT SCH (05:58)
[2020-02-27] MEDS: BLOOD SUGAR DIAGNOSTIC 1 EACH STRIP IN SCH ×4 (05:58→23:05)
[2020-02-27] MEDS: OMEPRAZOLE 20 MG CAPSULE.DR GT SCH (05:58)
[2020-02-27] MEDS: INSULIN ASPART/LISPRO 100 UNIT/ML CARTRIDGE SQ PRN ×4 (05:59→23:06)
[2020-02-27] MEDS: glipiZIDE 5 MG TABLET GT SCH ×2 (07:30→16:30)
[2020-02-27 07:37] VITALS: BP 132/56
[2020-02-27] MEDS: HYDROGEN PEROXIDE 480 ML BOTTLE TP SCH ×2 (08:03→20:52)
[2020-02-27] MEDS: Z GUARD REMEDY 2 OZ OINT TP SCH ×2 (09:00→21:29)
[2020-02-27] MEDS: VITAMINS A AND D 56.7 GM TUBE TP SCH ×2 (09:00→21:30)
[2020-02-27] MEDS: Z GUARD REMEDY 4 OZ OINT TP SCH ×2 (09:00→21:29)
[2020-02-27] MEDS: KEPPRA 500 MG GT SCH ×2 (09:33→21:29)
[2020-02-27] MEDS: SITAGLIPTIN PHOSPHATE 50 MG TABLET GT SCH (09:33)
[2020-02-27] MEDS: FERROUS SULFATE - FOR SA ONLY 330 MG/7.5 ML UDC GT SCH ×3 (09:33→17:53)
[2020-02-27] MEDS: APIXABAN 5 MG TABLET GT SCH ×2 (09:33→17:53)
[2020-02-27] MEDS: SIROLIMUS 1 MG GT SCH (09:46)
[2020-02-27] MEDS: DIGOXIN 0.125 MG TABLET GT SCH (12:40)
[2020-02-27 19:59] VITALS: BP 140/74
[2020-02-27] MEDS: LATANOPROST EYE DROP 0.005% 2.5 ML BOTTLE EACHEYE SCH (21:30)
[2020-02-27] MEDS: TAMSULOSIN 0.4 MG CAP.SR.24H GT SCH (21:30)
[2020-02-27] MEDS: INSULIN DETEMIR 100 UNIT/ML CARTRIDGE SQ SCH (21:36)
[2020-02-28] MEDS: OMEPRAZOLE 20 MG CAPSULE.DR GT SCH (05:28)
[2020-02-28] MEDS: BLOOD SUGAR DIAGNOSTIC 1 EACH STRIP IN SCH ×3 (05:28→18:03)
[2020-02-28] MEDS: LEVOTHYROXINE SODIUM 50 MCG TABLET GT SCH (05:28)
[2020-02-28] MEDS: INSULIN ASPART/LISPRO 100 UNIT/ML CARTRIDGE SQ PRN ×3 (05:29→18:37)
[2020-02-28 06:26] LABS: BASOPHILS # (AUTO) 0.1 /CMM (0.0-0.2); BASOPHILS % (AUTO) 1.1 % (0.0-2.0); EOSINOPHILS % (AUTO) 5.8 % (0.0-6.0); HEMATOCRIT 26 % (39-51); HEMOGLOBIN 8.5 g/dL (13.5-17.5); LYMPHOCYTES # (AUTO) 0.8 /CMM (0.8-4.8); LYMPHOCYTES % (AUTO) 15.9 % (20.0-44.0); MEAN CORPUSCULAR HGB CONC 32 g/dl (31.0-36.0); MEAN CORPUSCULAR VOLUME 90 fL (80-96); MONOCYTES # (AUTO) 0.7 /CMM (0.1-1.30); MONOCYTES % (AUTO) 12.2 % (2.0-12.0); NEUTROPHILS # (AUTO) 3.5 /CMM (1.8-8.9); PLATELET COUNT (AUTO) 174 /CMM (150-450); RED BLOOD CELL COUNT(AUTO) 2.93 MIL/uL (4.5-6.0); WHITE BLOOD COUNT (AUTO) 5.3 K/uL (4.3-11.0)
[2020-02-28 07:23] LABS: ALBUMIN 3.1 g/dL (3.4-5.0); BILIRUBIN,TOTAL 0.6 mg/dL (0.2-1.0); CALCIUM, SERUM 9.2 mg/dL (8.5-10.1); CREATININE 1.1 mg/dL (0.6-1.3); MAGNESIUM 2.4 mg/dL (1.8-2.4); PHOSPHORUS 3.2 mg/dL (2.5-4.9); POTASSIUM 3.9 mmol/L (3.5-5.1); TOTAL PROTEIN, SERUM 7.7 g/dL (6.4-8.2)
[2020-02-28] MEDS: glipiZIDE 5 MG TABLET GT SCH ×2 (07:30→16:30)
[2020-02-28 07:36] VITALS: BP 123/65
[2020-02-28] MEDS: HYDROGEN PEROXIDE 480 ML BOTTLE TP SCH ×2 (08:58→20:34)
[2020-02-28] MEDS: Z GUARD REMEDY 2 OZ OINT TP SCH ×2 (09:00→20:17)
[2020-02-28] MEDS: KEPPRA 500 MG GT SCH ×2 (09:00→20:17)
[2020-02-28] MEDS: FERROUS SULFATE - FOR SA ONLY 330 MG/7.5 ML UDC GT SCH ×3 (09:00→17:00)
[2020-02-28] MEDS: VITAMINS A AND D 56.7 GM TUBE TP SCH ×2 (09:00→20:17)
[2020-02-28] MEDS: SITAGLIPTIN PHOSPHATE 50 MG TABLET GT SCH (09:00)
[2020-02-28] MEDS: SIROLIMUS 1 MG GT SCH (09:00)
[2020-02-28] MEDS: Z GUARD REMEDY 4 OZ OINT TP SCH ×2 (09:00→20:17)
[2020-02-28] MEDS: APIXABAN 5 MG TABLET GT SCH ×2 (09:00→17:00)
[2020-02-28] MEDS: DIGOXIN 0.125 MG TABLET GT SCH (12:58)
[2020-02-28] MEDS: GLUCERNA 1.2 1,000 ML BOTTLE GT PRN (12:59)
[2020-02-28 20:04] VITALS: BP 139/76
[2020-02-28] MEDS: TAMSULOSIN 0.4 MG CAP.SR.24H GT SCH (21:04)
[2020-02-28] MEDS: LATANOPROST EYE DROP 0.005% 2.5 ML BOTTLE EACHEYE SCH (21:04)
[2020-02-28] MEDS: INSULIN DETEMIR 100 UNIT/ML CARTRIDGE SQ SCH (21:39)
[2020-02-29] MEDS: INSULIN ASPART/LISPRO 100 UNIT/ML CARTRIDGE SQ PRN ×5 (01:13→23:52)
[2020-02-29] MEDS: GLUCERNA 1.2 1,000 ML BOTTLE GT PRN (04:00)
[2020-02-29] MEDS: OMEPRAZOLE 20 MG CAPSULE.DR GT SCH (05:07)
[2020-02-29] MEDS: LEVOTHYROXINE SODIUM 50 MCG TABLET GT SCH (05:07)
[2020-02-29] MEDS: BLOOD SUGAR DIAGNOSTIC 1 EACH STRIP IN SCH ×5 (05:17→23:52)
[2020-02-29] MEDS: glipiZIDE 5 MG TABLET GT SCH ×2 (07:30→17:20)
[2020-02-29] MEDS: HYDROGEN PEROXIDE 480 ML BOTTLE TP SCH ×2 (08:29→21:35)
[2020-02-29] MEDS: KEPPRA 500 MG GT SCH ×2 (09:57→20:57)
[2020-02-29] MEDS: SIROLIMUS 1 MG GT SCH (09:57)
[2020-02-29] MEDS: APIXABAN 5 MG TABLET GT SCH ×2 (09:57→17:20)
[2020-02-29] MEDS: Z GUARD REMEDY 4 OZ OINT TP SCH ×2 (09:57→20:57)
[2020-02-29] MEDS: VITAMINS A AND D 56.7 GM TUBE TP SCH ×2 (09:57→20:57)
[2020-02-29] MEDS: Z GUARD REMEDY 2 OZ OINT TP SCH ×2 (09:57→20:57)
[2020-02-29] MEDS: FERROUS SULFATE - FOR SA ONLY 330 MG/7.5 ML UDC GT SCH ×3 (09:57→17:20)
[2020-02-29] MEDS: SITAGLIPTIN PHOSPHATE 50 MG TABLET GT SCH (09:57)
[2020-02-29] MEDS: DIGOXIN 0.125 MG TABLET GT SCH (12:51)
[2020-02-29 15:12] VITALS: BP 150/73
--- NOTE | 2020-02-29 15:50 | NUR ---
Per Director's request, this SW called the patient's son, Trevon Albrecht [phone] to provide an update on the facilities protocols pertaining to the ongoing COVID-19 pandemic. However, call went to voicemail and SW left call back number. SW will follow up.
[2020-02-29 19:55] VITALS: BP 125/61
[2020-02-29 20:01] VITALS: BP 125/61
[2020-02-29] MEDS: TAMSULOSIN 0.4 MG CAP.SR.24H GT SCH (21:41)
[2020-02-29] MEDS: LATANOPROST EYE DROP 0.005% 2.5 ML BOTTLE EACHEYE SCH (21:41)
[2020-02-29] MEDS: INSULIN DETEMIR 100 UNIT/ML CARTRIDGE SQ SCH (21:42)
--- NOTE | 2020-02-29 22:19 | NUR ---
INVENTORY CONTROL ANALYST NOTES Noted blood sugar of 81, Levemir 48 units Next held d/t episodes of low blood sugar level. Feeding on, tolerated well. HOB up. Will continue to monitor.
[2020-03-01] MEDS: GLUCERNA 1.2 1,000 ML BOTTLE GT PRN (05:28)
[2020-03-01] MEDS: LEVOTHYROXINE SODIUM 50 MCG TABLET GT SCH (05:28)
[2020-03-01] MEDS: BLOOD SUGAR DIAGNOSTIC 1 EACH STRIP IN SCH ×4 (05:28→23:22)
[2020-03-01] MEDS: OMEPRAZOLE 20 MG CAPSULE.DR GT SCH (05:28)
[2020-03-01] MEDS: INSULIN ASPART/LISPRO 100 UNIT/ML CARTRIDGE SQ PRN ×4 (05:29→23:23)
[2020-03-01 07:50] VITALS: BP 124/72
[2020-03-01] MEDS: glipiZIDE 5 MG TABLET GT SCH ×2 (08:00→16:59)
[2020-03-01] MEDS: VITAMINS A AND D 56.7 GM TUBE TP SCH ×2 (08:35→20:57)
[2020-03-01] MEDS: Z GUARD REMEDY 2 OZ OINT TP SCH ×2 (08:35→20:57)
[2020-03-01] MEDS: FERROUS SULFATE - FOR SA ONLY 330 MG/7.5 ML UDC GT SCH ×3 (08:35→16:59)
[2020-03-01] MEDS: SIROLIMUS 1 MG GT SCH (08:35)
[2020-03-01] MEDS: KEPPRA 500 MG GT SCH ×2 (08:35→20:57)
[2020-03-01] MEDS: Z GUARD REMEDY 4 OZ OINT TP SCH ×2 (08:35→20:57)
[2020-03-01] MEDS: APIXABAN 5 MG TABLET GT SCH ×2 (08:35→16:59)
[2020-03-01] MEDS: SITAGLIPTIN PHOSPHATE 50 MG TABLET GT SCH (08:35)
[2020-03-01] MEDS: HYDROGEN PEROXIDE 480 ML BOTTLE TP SCH ×2 (11:52→21:00)
[2020-03-01] MEDS: DIGOXIN 0.125 MG TABLET GT SCH (12:55)
[2020-03-01 20:40] VITALS: BP 112/73
[2020-03-01] MEDS: LATANOPROST EYE DROP 0.005% 2.5 ML BOTTLE EACHEYE SCH (21:38)
[2020-03-01] MEDS: TAMSULOSIN 0.4 MG CAP.SR.24H GT SCH (21:38)
[2020-03-01] MEDS: INSULIN DETEMIR 100 UNIT/ML CARTRIDGE SQ SCH (21:40)
[2020-03-02] MEDS: GLUCERNA 1.2 1,000 ML BOTTLE GT PRN (05:52)
[2020-03-02] MEDS: OMEPRAZOLE 20 MG CAPSULE.DR GT SCH (06:34)
[2020-03-02] MEDS: BLOOD SUGAR DIAGNOSTIC 1 EACH STRIP IN SCH ×4 (06:34→23:53)
[2020-03-02] MEDS: LEVOTHYROXINE SODIUM 50 MCG TABLET GT SCH (06:34)
[2020-03-02] MEDS: INSULIN ASPART/LISPRO 100 UNIT/ML CARTRIDGE SQ PRN ×3 (06:35→23:54)
[2020-03-02] MEDS: glipiZIDE 5 MG TABLET GT SCH ×2 (07:30→16:41)
[2020-03-02 07:43] VITALS: BP 136/74
[2020-03-02] MEDS: HYDROGEN PEROXIDE 480 ML BOTTLE TP SCH ×2 (08:47→21:00)
[2020-03-02] MEDS: KEPPRA 500 MG GT SCH ×2 (09:11→20:46)
[2020-03-02] MEDS: VITAMINS A AND D 56.7 GM TUBE TP SCH ×2 (09:11→20:46)
[2020-03-02] MEDS: Z GUARD REMEDY 4 OZ OINT TP SCH ×2 (09:11→20:46)
[2020-03-02] MEDS: SIROLIMUS 1 MG GT SCH (09:11)
[2020-03-02] MEDS: APIXABAN 5 MG TABLET GT SCH ×2 (09:11→16:41)
[2020-03-02] MEDS: SITAGLIPTIN PHOSPHATE 50 MG TABLET GT SCH (09:11)
[2020-03-02] MEDS: FERROUS SULFATE - FOR SA ONLY 330 MG/7.5 ML UDC GT SCH ×3 (09:11→16:41)
[2020-03-02] MEDS: DIGOXIN 0.125 MG TABLET GT SCH (12:22)
[2020-03-02 19:43] VITALS: BP 129/65
[2020-03-02] MEDS: TAMSULOSIN 0.4 MG CAP.SR.24H GT SCH (21:00)
[2020-03-02] MEDS: LATANOPROST EYE DROP 0.005% 2.5 ML BOTTLE EACHEYE SCH (21:00)
[2020-03-02] MEDS: INSULIN DETEMIR 100 UNIT/ML CARTRIDGE SQ SCH (21:00)
[2020-03-03] MEDS: GLUCERNA 1.2 1,000 ML BOTTLE GT PRN ×2 (00:01→22:42)
[2020-03-03] MEDS: LEVOTHYROXINE SODIUM 50 MCG TABLET GT SCH (05:15)
[2020-03-03] MEDS: OMEPRAZOLE 20 MG CAPSULE.DR GT SCH (05:15)
[2020-03-03] MEDS: BLOOD SUGAR DIAGNOSTIC 1 EACH STRIP IN SCH ×3 (05:46→18:02)
[2020-03-03] MEDS: INSULIN ASPART/LISPRO 100 UNIT/ML CARTRIDGE SQ PRN ×3 (05:46→18:03)
[2020-03-03] MEDS: glipiZIDE 5 MG TABLET GT SCH ×2 (07:30→16:22)
[2020-03-03 07:43] VITALS: BP 130/72
[2020-03-03] MEDS: HYDROGEN PEROXIDE 480 ML BOTTLE TP SCH ×2 (08:06→21:00)
[2020-03-03] MEDS: Z GUARD REMEDY 4 OZ OINT TP SCH ×2 (09:11→21:19)
[2020-03-03] MEDS: KEPPRA 500 MG GT SCH ×2 (09:11→21:18)
[2020-03-03] MEDS: APIXABAN 5 MG TABLET GT SCH ×2 (09:11→16:23)
[2020-03-03] MEDS: FERROUS SULFATE - FOR SA ONLY 330 MG/7.5 ML UDC GT SCH ×3 (09:11→16:23)
[2020-03-03] MEDS: SITAGLIPTIN PHOSPHATE 50 MG TABLET GT SCH (09:11)
[2020-03-03] MEDS: SIROLIMUS 1 MG GT SCH (09:11)
[2020-03-03] MEDS: VITAMINS A AND D 56.7 GM TUBE TP SCH ×2 (09:11→21:19)
[2020-03-03] MEDS: DIGOXIN 0.125 MG TABLET GT SCH (13:30)
[2020-03-03 20:11] VITALS: BP 133/75
[2020-03-03] MEDS: TAMSULOSIN 0.4 MG CAP.SR.24H GT SCH (21:19)
[2020-03-03] MEDS: LATANOPROST EYE DROP 0.005% 2.5 ML BOTTLE EACHEYE SCH (21:19)
[2020-03-03] MEDS: INSULIN DETEMIR 100 UNIT/ML CARTRIDGE SQ SCH (21:23)
[2020-03-04] MEDS: BLOOD SUGAR DIAGNOSTIC 1 EACH STRIP IN SCH ×5 (00:13→23:32)
[2020-03-04] MEDS: INSULIN ASPART/LISPRO 100 UNIT/ML CARTRIDGE SQ PRN ×5 (00:14→23:33)
[2020-03-04] MEDS: OMEPRAZOLE 20 MG CAPSULE.DR GT SCH (05:48)
[2020-03-04] MEDS: LEVOTHYROXINE SODIUM 50 MCG TABLET GT SCH (05:48)
[2020-03-04 07:27] LABS: BASOPHILS % (AUTO) 0.6 % (0.0-2.0); HEMATOCRIT 29 % (39-51); HEMOGLOBIN 9.3 g/dL (13.5-17.5); MEAN CORPUSCULAR HGB CONC 33 g/dl (31.0-36.0); MEAN CORPUSCULAR VOLUME 90 fL (80-96); MONOCYTES # (AUTO) 0.8 /CMM (0.1-1.30); MONOCYTES % (AUTO) 12.1 % (2.0-12.0); NEUTROPHILS # (AUTO) 4.6 /CMM (1.8-8.9); NEUTROPHILS % (AUTO) 67.3 % (43.0-81.0); PLATELET COUNT (AUTO) 185 /CMM (150-450); WHITE BLOOD COUNT (AUTO) 6.9 K/uL (4.3-11.0)
[2020-03-04 07:29] VITALS: BP 128/65
[2020-03-04 07:59] LABS: CALCIUM, SERUM 9.1 mg/dL (8.5-10.1); CREATININE 0.9 mg/dL (0.6-1.3); MAGNESIUM 2.3 mg/dL (1.8-2.4); PHOSPHORUS 3.6 mg/dL (2.5-4.9); POTASSIUM 3.9 mmol/L (3.5-5.1)
[2020-03-04] MEDS: glipiZIDE 5 MG TABLET GT SCH ×2 (08:19→16:40)
[2020-03-04 08:22] LABS: IRON, SERUM 35 ug/dl (50-175); TOTAL IRON BINDING CAPACITY 245 ug/dl (250-450)
[2020-03-04] MEDS: FERROUS SULFATE - FOR SA ONLY 330 MG/7.5 ML UDC GT SCH ×3 (08:22→16:41)
[2020-03-04] MEDS: APIXABAN 5 MG TABLET GT SCH ×2 (08:22→16:41)
[2020-03-04] MEDS: KEPPRA 500 MG GT SCH ×2 (08:23→20:35)
[2020-03-04] MEDS: VITAMINS A AND D 56.7 GM TUBE TP SCH ×2 (08:23→20:35)
[2020-03-04] MEDS: Z GUARD REMEDY 4 OZ OINT TP SCH ×2 (08:23→20:35)
[2020-03-04] MEDS: SIROLIMUS 1 MG GT SCH (08:23)
[2020-03-04] MEDS: SITAGLIPTIN PHOSPHATE 50 MG TABLET GT SCH (08:23)
[2020-03-04] MEDS: HYDROGEN PEROXIDE 480 ML BOTTLE TP SCH ×2 (09:00→21:00)
[2020-03-04] MEDS: DIGOXIN 0.125 MG TABLET GT SCH (12:28)
[2020-03-04 20:05] VITALS: BP 134/66
[2020-03-04] MEDS: LATANOPROST EYE DROP 0.005% 2.5 ML BOTTLE EACHEYE SCH (21:09)
[2020-03-04] MEDS: TAMSULOSIN 0.4 MG CAP.SR.24H GT SCH (21:09)
[2020-03-04] MEDS: INSULIN DETEMIR 100 UNIT/ML CARTRIDGE SQ SCH (21:11)
[2020-03-05] MEDS: BLOOD SUGAR DIAGNOSTIC 1 EACH STRIP IN SCH ×4 (05:43→23:09)
[2020-03-05] MEDS: LEVOTHYROXINE SODIUM 50 MCG TABLET GT SCH (05:43)
[2020-03-05] MEDS: OMEPRAZOLE 20 MG CAPSULE.DR GT SCH (05:43)
[2020-03-05] MEDS: INSULIN ASPART/LISPRO 100 UNIT/ML CARTRIDGE SQ PRN ×4 (05:45→23:10)
[2020-03-05] MEDS: glipiZIDE 5 MG TABLET GT SCH ×2 (07:30→17:23)
[2020-03-05 09:04] VITALS: BP 113/53
[2020-03-05] MEDS: HYDROGEN PEROXIDE 480 ML BOTTLE TP SCH ×2 (09:29→21:03)
[2020-03-05] MEDS: VITAMINS A AND D 56.7 GM TUBE TP SCH ×2 (09:30→21:11)
[2020-03-05] MEDS: APIXABAN 5 MG TABLET GT SCH ×2 (09:30→17:23)
[2020-03-05] MEDS: SITAGLIPTIN PHOSPHATE 50 MG TABLET GT SCH (09:30)
[2020-03-05] MEDS: SIROLIMUS 1 MG GT SCH (09:30)
[2020-03-05] MEDS: FERROUS SULFATE - FOR SA ONLY 330 MG/7.5 ML UDC GT SCH ×3 (09:30→17:23)
[2020-03-05] MEDS: KEPPRA 500 MG GT SCH ×2 (09:30→21:11)
[2020-03-05] MEDS: Z GUARD REMEDY 4 OZ OINT TP SCH ×2 (09:30→21:11)
--- NOTE | 2020-03-05 10:27 | NUR ---
Facility Protocols: Per Director's request, this SW called the patient's Son, Trevon Albrecht [phone] to provide an update on the facilities protocols pertaining to the ongoing COVID-19 pandemic. Trevon was receptive to speaking with DELMI. DELMI informed the family that essential infection control practices continue to be implemented in our facility and that the visitation restrictions will remain in place until otherwise stated by The Department of Public Health. DELMI reminded Trevon of alternative means of communication including Zoom video calls, calling our facility and [facility]. Trevon expressed understanding. Family will be updated if any changes occur.
--- NOTE | 2020-03-05 10:38 | NUR ---
Family invitation to IDT: This SW called the patient's son, Trevon Albrecht [phone] to invite them to the IDT this Tuesday03/07/2020 12:30-1:30pm. Per Trevon, he will be available after 1 pm to participate in IDT via phone conference. Noted.
[2020-03-05] MEDS: DIGOXIN 0.125 MG TABLET GT SCH (12:51)
[2020-03-05 20:22] VITALS: BP 134/73
[2020-03-05] MEDS: LATANOPROST EYE DROP 0.005% 2.5 ML BOTTLE EACHEYE SCH (21:11)
[2020-03-05] MEDS: TAMSULOSIN 0.4 MG CAP.SR.24H GT SCH (21:11)
[2020-03-05] MEDS: INSULIN DETEMIR 100 UNIT/ML CARTRIDGE SQ SCH (21:12)
[2020-03-06] MEDS: OMEPRAZOLE 20 MG CAPSULE.DR GT SCH (05:43)
[2020-03-06] MEDS: BLOOD SUGAR DIAGNOSTIC 1 EACH STRIP IN SCH ×4 (05:43→23:12)
[2020-03-06] MEDS: LEVOTHYROXINE SODIUM 50 MCG TABLET GT SCH (05:43)
[2020-03-06] MEDS: INSULIN ASPART/LISPRO 100 UNIT/ML CARTRIDGE SQ PRN ×4 (05:45→23:13)
[2020-03-06] MEDS: glipiZIDE 5 MG TABLET GT SCH ×2 (07:30→16:30)
[2020-03-06 08:00] VITALS: BP 134/63
[2020-03-06] MEDS: HYDROGEN PEROXIDE 480 ML BOTTLE TP SCH ×2 (09:00→23:27)
[2020-03-06] MEDS: SITAGLIPTIN PHOSPHATE 50 MG TABLET GT SCH (09:44)
[2020-03-06] MEDS: Z GUARD REMEDY 4 OZ OINT TP SCH ×2 (09:44→20:20)
[2020-03-06] MEDS: APIXABAN 5 MG TABLET GT SCH ×2 (09:44→17:37)
[2020-03-06] MEDS: VITAMINS A AND D 56.7 GM TUBE TP SCH ×2 (09:44→20:21)
[2020-03-06] MEDS: FERROUS SULFATE - FOR SA ONLY 330 MG/7.5 ML UDC GT SCH ×3 (09:44→17:37)
[2020-03-06] MEDS: SIROLIMUS 1 MG GT SCH (09:44)
[2020-03-06] MEDS: KEPPRA 500 MG GT SCH ×2 (09:44→20:20)
[2020-03-06] MEDS: DIGOXIN 0.125 MG TABLET GT SCH (12:13)
--- NOTE | 2020-03-06 15:35 | NUR ---
RT NOTE: MONTHLY TRACH CHANGE DONE. MINIMAL BLEEDING AND NO REDNESS NOTED. SPARE TRACH AND AMBU BAG AT [facility]. VENT IS PLUGGED INTO RED OUTLET. ALARMS SET AND AUDIBLE. NURSE AWARE.
[2020-03-06] MEDS: GLUCERNA 1.2 1,000 ML BOTTLE GT PRN (17:37)
[2020-03-06 20:03] VITALS: BP 109/51
[2020-03-06] MEDS: LATANOPROST EYE DROP 0.005% 2.5 ML BOTTLE EACHEYE SCH (21:43)
[2020-03-06] MEDS: TAMSULOSIN 0.4 MG CAP.SR.24H GT SCH (21:43)
[2020-03-06] MEDS: INSULIN DETEMIR 100 UNIT/ML CARTRIDGE SQ SCH (21:43)
[2020-03-06] MEDS: SIMETHICONE 80 MG TAB.CHEW GT PRN (21:45)
--- NOTE | 2020-03-07 02:22 | NUR ---
RT Pt trach remains on [facility] vent. trach secure and patent. Addendum: 03/07/20 at 0223 by LUZ GALLEGOS RT Amended: Links added.
[2020-03-07] MEDS: GLUCERNA 1.2 1,000 ML BOTTLE GT PRN (05:13)
[2020-03-07] MEDS: OMEPRAZOLE 20 MG CAPSULE.DR GT SCH (05:13)
[2020-03-07] MEDS: LEVOTHYROXINE SODIUM 50 MCG TABLET GT SCH (05:13)
[2020-03-07] MEDS: BLOOD SUGAR DIAGNOSTIC 1 EACH STRIP IN SCH ×4 (05:13→23:35)
[2020-03-07] MEDS: INSULIN ASPART/LISPRO 100 UNIT/ML CARTRIDGE SQ PRN ×4 (05:13→23:35)
[2020-03-07 07:19] VITALS: BP 132/62
[2020-03-07] MEDS: glipiZIDE 5 MG TABLET GT SCH ×2 (07:30→16:30)
[2020-03-07] MEDS: FERROUS SULFATE - FOR SA ONLY 330 MG/7.5 ML UDC GT SCH ×3 (09:00→17:35)
[2020-03-07] MEDS: VITAMINS A AND D 56.7 GM TUBE TP SCH ×2 (09:00→20:18)
[2020-03-07] MEDS: APIXABAN 5 MG TABLET GT SCH ×2 (09:00→17:35)
[2020-03-07] MEDS: KEPPRA 500 MG GT SCH ×2 (09:00→20:18)
[2020-03-07] MEDS: SITAGLIPTIN PHOSPHATE 50 MG TABLET GT SCH (09:00)
[2020-03-07] MEDS: SIROLIMUS 1 MG GT SCH (09:00)
[2020-03-07] MEDS: Z GUARD REMEDY 4 OZ OINT TP SCH ×2 (09:00→20:18)
[2020-03-07] MEDS: HYDROGEN PEROXIDE 480 ML BOTTLE TP SCH ×2 (09:03→21:00)
[2020-03-07] MEDS: DIGOXIN 0.125 MG TABLET GT SCH (12:27)
--- NOTE | 2020-03-07 16:20 | NUR ---
INTERDISCIPLINARY PLAN OF CARE CONFERENCE took place today. The patients responsible constitution party/ Trevon Ambrocio [phone] participated via phone conference. Charge nurse discussed pt.s blood sugar under control; 02/21 Anemia Tx; patient stable(see nursing notes for details). Dr. Alicea and Interdisciplinary team discussed the plan of care in detail. Current orders as well as treatments and medications were reviewed. IDT addressed familys questions. See other disciplines IDT notes for further details.
[2020-03-07 20:00] VITALS: BP 122/60
[2020-03-07] MEDS: LATANOPROST EYE DROP 0.005% 2.5 ML BOTTLE EACHEYE SCH (21:22)
[2020-03-07] MEDS: TAMSULOSIN 0.4 MG CAP.SR.24H GT SCH (21:22)
[2020-03-07] MEDS: INSULIN DETEMIR 100 UNIT/ML CARTRIDGE SQ SCH (21:22)
[2020-03-08] MEDS: OMEPRAZOLE 20 MG CAPSULE.DR GT SCH (05:06)
[2020-03-08] MEDS: LEVOTHYROXINE SODIUM 50 MCG TABLET GT SCH (05:06)
[2020-03-08] MEDS: GLUCERNA 1.2 1,000 ML BOTTLE GT PRN (05:06)
[2020-03-08] MEDS: BLOOD SUGAR DIAGNOSTIC 1 EACH STRIP IN SCH ×4 (05:06→23:12)
[2020-03-08] MEDS: INSULIN ASPART/LISPRO 100 UNIT/ML CARTRIDGE SQ PRN ×3 (05:07→23:13)
[2020-03-08 07:30] VITALS: BP 114/62
[2020-03-08] MEDS: glipiZIDE 5 MG TABLET GT SCH ×2 (08:00→16:43)
[2020-03-08] MEDS: HYDROGEN PEROXIDE 480 ML BOTTLE TP SCH ×2 (08:29→21:10)
[2020-03-08] MEDS: APIXABAN 5 MG TABLET GT SCH ×2 (08:52→16:43)
[2020-03-08] MEDS: SIROLIMUS 1 MG GT SCH (08:52)
[2020-03-08] MEDS: VITAMINS A AND D 56.7 GM TUBE TP SCH ×2 (08:52→20:13)
[2020-03-08] MEDS: SITAGLIPTIN PHOSPHATE 50 MG TABLET GT SCH (08:52)
[2020-03-08] MEDS: FERROUS SULFATE - FOR SA ONLY 330 MG/7.5 ML UDC GT SCH ×3 (08:52→16:43)
[2020-03-08] MEDS: Z GUARD REMEDY 4 OZ OINT TP SCH ×2 (08:52→20:13)
[2020-03-08] MEDS: KEPPRA 500 MG GT SCH ×2 (08:52→20:13)
[2020-03-08] MEDS: DIGOXIN 0.125 MG TABLET GT SCH (12:27)
[2020-03-08 17:30] LABS: BASOPHILS % (AUTO) 0.7 % (0.0-2.0); EOSINOPHILS % (AUTO) 5.2 % (0.0-6.0); HEMATOCRIT 29 % (39-51); HEMOGLOBIN 9.2 g/dL (13.5-17.5); LYMPHOCYTES # (AUTO) 1.2 /CMM (0.8-4.8); LYMPHOCYTES % (AUTO) 17.9 % (20.0-44.0); MEAN CORPUSCULAR HGB CONC 32 g/dl (31.0-36.0); MEAN CORPUSCULAR VOLUME 90 fL (80-96); MONOCYTES # (AUTO) 0.7 /CMM (0.1-1.30); MONOCYTES % (AUTO) 10.1 % (2.0-12.0); NEUTROPHILS # (AUTO) 4.5 /CMM (1.8-8.9); NEUTROPHILS % (AUTO) 66.1 % (43.0-81.0); PLATELET COUNT (AUTO) 191 /CMM (150-450); RED BLOOD CELL COUNT(AUTO) 3.21 MIL/uL (4.5-6.0); WHITE BLOOD COUNT (AUTO) 6.9 K/uL (4.3-11.0)
[2020-03-08 17:42] LABS: CALCIUM, SERUM 9.1 mg/dL (8.5-10.1); CREATININE 1.1 mg/dL (0.6-1.3); MAGNESIUM 2.4 mg/dL (1.8-2.4); PHOSPHORUS 3.3 mg/dL (2.5-4.9)
[2020-03-08 19:42] VITALS: BP 130/71
[2020-03-08] MEDS: TAMSULOSIN 0.4 MG CAP.SR.24H GT SCH (21:00)
[2020-03-08] MEDS: LATANOPROST EYE DROP 0.005% 2.5 ML BOTTLE EACHEYE SCH (21:00)
[2020-03-08] MEDS: INSULIN DETEMIR 100 UNIT/ML CARTRIDGE SQ SCH (21:01)
[2020-03-09] MEDS: GLUCERNA 1.2 1,000 ML BOTTLE GT PRN (05:13)
[2020-03-09] MEDS: BLOOD SUGAR DIAGNOSTIC 1 EACH STRIP IN SCH ×4 (05:13→23:48)
[2020-03-09] MEDS: OMEPRAZOLE 20 MG CAPSULE.DR GT SCH (05:13)
[2020-03-09] MEDS: INSULIN ASPART/LISPRO 100 UNIT/ML CARTRIDGE SQ PRN ×4 (05:13→23:49)
[2020-03-09] MEDS: LEVOTHYROXINE SODIUM 50 MCG TABLET GT SCH (05:13)
[2020-03-09] MEDS: glipiZIDE 5 MG TABLET GT SCH ×2 (07:30→17:03)
[2020-03-09 07:56] VITALS: BP 110/69
[2020-03-09] MEDS: HYDROGEN PEROXIDE 480 ML BOTTLE TP SCH ×2 (08:15→21:06)
[2020-03-09] MEDS: Z GUARD REMEDY 4 OZ OINT TP SCH ×2 (09:25→20:05)
[2020-03-09] MEDS: SITAGLIPTIN PHOSPHATE 50 MG TABLET GT SCH (09:25)
[2020-03-09] MEDS: FERROUS SULFATE - FOR SA ONLY 330 MG/7.5 ML UDC GT SCH ×3 (09:25→17:03)
[2020-03-09] MEDS: KEPPRA 500 MG GT SCH ×2 (09:25→20:05)
[2020-03-09] MEDS: APIXABAN 5 MG TABLET GT SCH ×2 (09:25→17:03)
[2020-03-09] MEDS: SIROLIMUS 1 MG GT SCH (09:25)
[2020-03-09] MEDS: VITAMINS A AND D 56.7 GM TUBE TP SCH ×2 (09:26→20:05)
[2020-03-09] MEDS: DIGOXIN 0.125 MG TABLET GT SCH (13:00)
[2020-03-09 20:15] VITALS: BP 132/82
[2020-03-09 20:21] VITALS: BP 132/82
[2020-03-09] MEDS: LATANOPROST EYE DROP 0.005% 2.5 ML BOTTLE EACHEYE SCH (21:43)
[2020-03-09] MEDS: TAMSULOSIN 0.4 MG CAP.SR.24H GT SCH (21:43)
[2020-03-09] MEDS: INSULIN DETEMIR 100 UNIT/ML CARTRIDGE SQ SCH (21:44)
[2020-03-10] MEDS: LEVOTHYROXINE SODIUM 50 MCG TABLET GT SCH (05:14)
[2020-03-10] MEDS: OMEPRAZOLE 20 MG CAPSULE.DR GT SCH (05:14)
[2020-03-10] MEDS: BLOOD SUGAR DIAGNOSTIC 1 EACH STRIP IN SCH ×4 (05:14→23:53)
[2020-03-10] MEDS: INSULIN ASPART/LISPRO 100 UNIT/ML CARTRIDGE SQ PRN ×4 (05:14→23:53)
[2020-03-10 07:26] VITALS: BP 161/76
[2020-03-10] MEDS: glipiZIDE 5 MG TABLET GT SCH ×2 (07:30→17:05)
[2020-03-10] MEDS: HYDROGEN PEROXIDE 480 ML BOTTLE TP SCH ×2 (08:02→21:00)
[2020-03-10] MEDS: FERROUS SULFATE - FOR SA ONLY 330 MG/7.5 ML UDC GT SCH ×3 (09:19→17:06)
[2020-03-10] MEDS: APIXABAN 5 MG TABLET GT SCH ×2 (09:19→17:06)
[2020-03-10] MEDS: KEPPRA 500 MG GT SCH ×2 (09:19→20:08)
[2020-03-10] MEDS: Z GUARD REMEDY 4 OZ OINT TP SCH ×2 (09:20→20:08)
[2020-03-10] MEDS: SITAGLIPTIN PHOSPHATE 50 MG TABLET GT SCH (09:20)
[2020-03-10] MEDS: VITAMINS A AND D 56.7 GM TUBE TP SCH ×2 (09:20→20:08)
[2020-03-10] MEDS: SIROLIMUS 1 MG GT SCH (09:20)
[2020-03-10] MEDS: DIGOXIN 0.125 MG TABLET GT SCH (13:00)
[2020-03-10 20:13] VITALS: BP 152/58
[2020-03-10] MEDS: TAMSULOSIN 0.4 MG CAP.SR.24H GT SCH (21:29)
[2020-03-10] MEDS: LATANOPROST EYE DROP 0.005% 2.5 ML BOTTLE EACHEYE SCH (21:29)
[2020-03-10] MEDS: INSULIN DETEMIR 100 UNIT/ML CARTRIDGE SQ SCH (21:32)
[2020-03-11] MEDS: LEVOTHYROXINE SODIUM 50 MCG TABLET GT SCH (05:05)
[2020-03-11] MEDS: OMEPRAZOLE 20 MG CAPSULE.DR GT SCH (05:05)
[2020-03-11] MEDS: BLOOD SUGAR DIAGNOSTIC 1 EACH STRIP IN SCH ×4 (05:05→23:59)
[2020-03-11] MEDS: INSULIN ASPART/LISPRO 100 UNIT/ML CARTRIDGE SQ PRN ×4 (05:06→23:59)
[2020-03-11] MEDS: GLUCERNA 1.2 1,000 ML BOTTLE GT PRN (05:08)
[2020-03-11 07:21] VITALS: BP 130/69
[2020-03-11] MEDS: glipiZIDE 5 MG TABLET GT SCH ×2 (07:30→17:20)
[2020-03-11] MEDS: HYDROGEN PEROXIDE 480 ML BOTTLE TP SCH ×2 (09:00→21:59)
[2020-03-11] MEDS: FERROUS SULFATE - FOR SA ONLY 330 MG/7.5 ML UDC GT SCH ×3 (09:30→17:22)
[2020-03-11] MEDS: APIXABAN 5 MG TABLET GT SCH ×2 (09:30→17:22)
[2020-03-11] MEDS: Z GUARD REMEDY 4 OZ OINT TP SCH ×2 (09:31→21:09)
[2020-03-11] MEDS: SITAGLIPTIN PHOSPHATE 50 MG TABLET GT SCH (09:31)
[2020-03-11] MEDS: KEPPRA 500 MG GT SCH ×2 (09:31→21:09)
[2020-03-11] MEDS: VITAMINS A AND D 56.7 GM TUBE TP SCH ×2 (09:31→21:09)
[2020-03-11] MEDS: SIROLIMUS 1 MG GT SCH (09:31)
[2020-03-11] MEDS: DIGOXIN 0.125 MG TABLET GT SCH (13:00)
--- NOTE | 2020-03-11 16:17 | NUR ---
Facility Protocols: Per Director's request, this SW updated the patient's Son, Trevon Albrecht [phone] via [employer] portal regarding the facility's protocols pertaining to the ongoing COVID-19 pandemic. SW informed the family that essential infection control practices continue to be updated and implemented in our facility. SW informed family that the visitation restrictions will remain in place until otherwise stated by The Department of Public Health. SW reminded Trevon of alternative means of communication including Zoom video calls, calling our facility and [employer]. Family will be updated if any changes occur.
[2020-03-11 20:09] VITALS: BP 113/53
[2020-03-11] MEDS: TAMSULOSIN 0.4 MG CAP.SR.24H GT SCH (21:25)
[2020-03-11] MEDS: LATANOPROST EYE DROP 0.005% 2.5 ML BOTTLE EACHEYE SCH (21:25)
[2020-03-11] MEDS: INSULIN DETEMIR 100 UNIT/ML CARTRIDGE SQ SCH (21:26)
[2020-03-12] MEDS: OMEPRAZOLE 20 MG CAPSULE.DR GT SCH (05:06)
[2020-03-12] MEDS: BLOOD SUGAR DIAGNOSTIC 1 EACH STRIP IN SCH ×4 (05:06→23:19)
[2020-03-12] MEDS: LEVOTHYROXINE SODIUM 50 MCG TABLET GT SCH (05:06)
[2020-03-12] MEDS: INSULIN ASPART/LISPRO 100 UNIT/ML CARTRIDGE SQ PRN ×4 (05:07→23:20)
[2020-03-12] MEDS: glipiZIDE 5 MG TABLET GT SCH ×2 (07:30→17:24)
[2020-03-12] MEDS: KEPPRA 500 MG GT SCH ×2 (09:12→20:19)
[2020-03-12] MEDS: SIROLIMUS 1 MG GT SCH (09:12)
[2020-03-12] MEDS: SITAGLIPTIN PHOSPHATE 50 MG TABLET GT SCH (09:12)
[2020-03-12] MEDS: APIXABAN 5 MG TABLET GT SCH ×2 (09:12→17:24)
[2020-03-12] MEDS: FERROUS SULFATE - FOR SA ONLY 330 MG/7.5 ML UDC GT SCH ×3 (09:12→17:24)
[2020-03-12] MEDS: Z GUARD REMEDY 4 OZ OINT TP SCH ×2 (09:13→20:19)
[2020-03-12] MEDS: VITAMINS A AND D 56.7 GM TUBE TP SCH ×2 (09:13→20:19)
[2020-03-12] MEDS: HYDROGEN PEROXIDE 480 ML BOTTLE TP SCH ×2 (09:26→21:34)
[2020-03-12] MEDS: DIGOXIN 0.125 MG TABLET GT SCH (13:00)
[2020-03-12 18:39] VITALS: BP 103/72
--- NOTE | 2020-03-12 19:10 | NUR ---
Left a message to Dr. Hood that patient's HR has been fluctuating for about 5 min. It has been above 120 and there are times that it goes between 130-160. New order given to do EKG. Endorsed.
--- NOTE | 2020-03-12 20:15 | NUR ---
Patient temp 102.9 HR 120's to 140's ,O2 Sats 97% ,BP 126/95. Tylenol given via gt and cooling measures provided.EKG done. Left message to Dr. Hood waiting for reply.Will continue to monitor.
[2020-03-12] MEDS: SIMETHICONE 80 MG TAB.CHEW GT PRN (20:20)
[2020-03-12] MEDS: ACETAMINOPHEN 650 MG/20 ML UDC- SA PATIENTS-FEVER ONLY GT PRN (20:21)
[2020-03-12] MEDS: ONDANSETRON 4 MG TAB.RAPDIS GT PRN (20:24)
[2020-03-12] MEDS: TAMSULOSIN 0.4 MG CAP.SR.24H GT SCH (21:31)
[2020-03-12] MEDS: INSULIN DETEMIR 100 UNIT/ML CARTRIDGE SQ SCH (21:31)
[2020-03-12] MEDS: LATANOPROST EYE DROP 0.005% 2.5 ML BOTTLE EACHEYE SCH (21:31)
--- NOTE | 2020-03-12 21:45 | NUR ---
Re checked temp 103.2, HR 120's BP 116/70 ,O2 sats 97%,increased secretions, no respiratory distress.Notified Dr. Kothari of patient condition,relayed EKG results.New orders Tylenol 1 gm via gt x1,Motrin 400 mg gt x1,CXR, Blood culture x 2 Lactic acid, procalcitonin,urinalysis,covid test.CBC and CMP in AM. Give NS 1 liter IV bolus x 1 and start Cefepime 1gm q 24 hours x 5 days per protocol. Will carried out orders.
[2020-03-12] MEDS ORDERED: ACETAMINOPHEN ES 500 MG TABLET GT ONE (22:00)
[2020-03-12] MEDS ORDERED: IBUPROFEN 400 MG TABLET GT ONE (22:00)
[2020-03-12] MEDS ORDERED: CEFEPIME 1 GM in IV D5W 50 ML IV SCH (22:00)
[2020-03-12] MEDS ORDERED: IV NS 0.9% 1,000 ML IV ONE (22:00)
--- NOTE | 2020-03-12 22:48 | NUR ---
Patient primary nurse spoke to Trevon (son) and updated with pt condition. Patient looks calm and HR is 95 bpm. Will continue cooling measures and will monitor patient closely.
[2020-03-12] MEDS: GLUCERNA 1.2 1,000 ML BOTTLE GT PRN (23:24)
--- NOTE | 2020-03-12 23:30 | NUR ---
Reported abnormal results of lactic acid and Procalcitonin. order to transfer to ER for further evaluation.Notified Trevon of the new order,he agree to transfer pt to ER.
--- NOTE | 2020-03-13 00:07 | NUR ---
Patient transferred to ER ,report given to Keren HUTTON. Bed hold x 7 days.
[2020-03-13 04:49] LABS: BASOPHILS % (AUTO) 0.1 % (0.0-2.0); HEMATOCRIT 31 % (39-51); HEMOGLOBIN 9.7 g/dL (13.5-17.5); LYMPHOCYTES # (AUTO) 0.3 /CMM (0.8-4.8); LYMPHOCYTES % (AUTO) 1.1 % (20.0-44.0); MEAN CORPUSCULAR HGB CONC 31 g/dl (31.0-36.0); MEAN CORPUSCULAR VOLUME 93 fL (80-96); MONOCYTES % (AUTO) 0.2 % (2.0-12.0); NEUTROPHILS # (AUTO) 22.4 /CMM (1.8-8.9); NEUTROPHILS % (AUTO) 98.6 % (43.0-81.0); PLATELET COUNT (AUTO) 144 /CMM (150-450); RED BLOOD CELL COUNT(AUTO) 3.39 MIL/uL (4.5-6.0); WHITE BLOOD COUNT (AUTO) 22.7 K/uL (4.3-11.0)
[2020-03-13 05:00] LABS: ALANINE AMINOTRANSFERASE 46 U/L (12-78); ALKALINE PHOSPHATASE 83 U/L (46-116); ASPARTATE AMINOTRANSFERASE 105 U/L (15-37); BILIRUBIN,TOTAL 1.8 mg/dL (0.2-1.0); CALCIUM, SERUM 8.3 mg/dL (8.5-10.1); CARBON DIOXIDE 23 mmol/L (21-32); CHLORIDE 101 mmol/L (98-107); CREATININE 1.8 mg/dL (0.6-1.3); GLUCOSE 150 mg/dL (74-106); POTASSIUM 3.6 mmol/L (3.5-5.1); SODIUM SERUM 138 mmol/L (136-145); TOTAL PROTEIN, SERUM 7.2 g/dL (6.4-8.2); UREA NITROGEN, BLOOD 23 mg/dL (7-18)
[2020-03-13] MEDS ORDERED: FERR300L GT (08:50)
[2020-03-13] MEDS ORDERED: CEFE1VIA3 IV (08:50)
[2020-03-13] MEDS ORDERED: OMEP20CA15 GT (08:50)
[2020-03-13] MEDS ORDERED: INSU100V10 SQ (08:50)
[2020-03-13] MEDS ORDERED: GLIP5TAB13 GT (08:50)
[2020-03-13] MEDS ORDERED: GUAI100S11 GT (08:50)
[2020-03-13] MEDS ORDERED: ALBU1.257 IH (08:50)
[2020-03-13] MEDS ORDERED: SITA100T GT (08:50)
[2020-03-13] MEDS ORDERED: ALLA266C2 TP (08:50)
[2020-03-13] MEDS ORDERED: NUT.237L30 GT (08:50)
[2020-03-13] MEDS ORDERED: SIME80TA15 GT (08:52)
[2020-03-13] MEDS ORDERED: VITA56.7 TP (08:52)
[2020-03-21] MEDS ORDERED: PIPE3.376 IV (16:20)
[2020-03-21] MEDS ORDERED: VANC1VIA XX (16:20)
[2020-03-22] MEDS ORDERED: ALBU18HF2 IH ×2 (07:32)
[2020-03-22] MEDS ORDERED: MAGN400O6 GT (07:32)
[2020-03-22] MEDS ORDERED: MAG30ORA GT (07:32)
[2020-03-22] MEDS ORDERED: IPRA12.9 IH (07:32)
[2020-03-22] MEDS ORDERED: PANT40SU2 GT (07:32)
== END 2020-03-13 02:39 | disposition short-term general hospital (02) | DRG 207 ==
LOC: SA 21:50 → UNDOLOA 03-19 10:00 → UNDODISIN 03-19 19:00
PROVIDERS: ADMIT Internal Medicine; ATTEND Internal Medicine
PROC: 5A1955Z Respiratory Ventilation, Greater than 96 Consecutive Hours (ICD-10-PCS; principal; 2019-12-06)
PROC: 05H933Z Insertion of Infusion Device into Right Brachial Vein, Percutaneous Approach (ICD-10-PCS; 2019-12-27)
PROC: 05HB33Z Insertion of Infusion Device into Right Basilic Vein, Percutaneous Approach (ICD-10-PCS; 2020-02-23)
DX: J96.21 Acute and chronic respiratory failure with hypoxia (principal); G92 Toxic encephalopathy; J18.9 Pneumonia, unspecified organism; N17.9 Acute kidney failure, unspecified; Z99.11 Dependence on respirator [ventilator] status; E44.0 Moderate protein-calorie malnutrition; E87.0 Hyperosmolality and hypernatremia; E87.2 Acidosis; J98.11 Atelectasis; J95.851 Ventilator associated pneumonia; N39.0 Urinary tract infection, site not specified; T86.11 Kidney transplant rejection; E87.1 Hypo-osmolality and hyponatremia; Z16.24 Resistance to multiple antibiotics; E11.22 Type 2 diabetes mellitus with diabetic chronic kidney disease; Z99.2 Dependence on renal dialysis; J44.9 Chronic obstructive pulmonary disease, unspecified; R13.10 Dysphagia, unspecified; I48.91 Unspecified atrial fibrillation; Z79.01 Long term (current) use of anticoagulants; E03.9 Hypothyroidism, unspecified; G40.909 Epilepsy, unspecified, not intractable, without status epilepticus; Z93.0 Tracheostomy status; Z93.1 Gastrostomy status; Z90.5 Acquired absence of kidney; Z87.440 Personal history of urinary (tract) infections; M85.9 Disorder of bone density and structure, unspecified; I50.9 Heart failure, unspecified; E87.6 Hypokalemia; N40.0 Benign prostatic hyperplasia without lower urinary tract symptoms; I49.9 Cardiac arrhythmia, unspecified; Z79.4 Long term (current) use of insulin; Z79.51 Long term (current) use of inhaled steroids; Z79.899 Other long term (current) drug therapy; Z86.73 Personal history of transient ischemic attack (TIA), and cerebral infarction without residual deficits; L60.3 Nail dystrophy; Z74.01 Bed confinement status; R23.4 Changes in skin texture; E83.39 Other disorders of phosphorus metabolism; E11.65 Type 2 diabetes mellitus with hyperglycemia; I25.10 Atherosclerotic heart disease of native coronary artery without angina pectoris; I70.0 Atherosclerosis of aorta; Z87.01 Personal history of pneumonia (recurrent); M62.462 Contracture of muscle, left lower leg; M62.461 Contracture of muscle, right lower leg; M62.562 Muscle wasting and atrophy, not elsewhere classified, left lower leg; M62.561 Muscle wasting and atrophy, not elsewhere classified, right lower leg; Y84.9 Medical procedure, unspecified as the cause of abnormal reaction of the patient, or of later complication, without mention of misadventure at the time of the procedure; Y82.9 Unspecified medical devices associated with adverse incidents; Y92.89 Other specified places as the place of occurrence of the external cause; Y92.129 Unspecified place in nursing home as the place of occurrence of the external cause; Y83.0 Surgical operation with transplant of whole organ as the cause of abnormal reaction of the patient, or of later complication, without mention of misadventure at the time of the procedure; L98.9 Disorder of the skin and subcutaneous tissue, unspecified; Z74.09 Other reduced mobility; D63.8 Anemia in other chronic diseases classified elsewhere; B96.89 Other specified bacterial agents as the cause of diseases classified elsewhere; D72.829 Elevated white blood cell count, unspecified; Y95 Nosocomial condition
CPT/HCPCS: 31720; 36410; 36415; 36600; 71045-TC; 80048-TC; 80053-TC; 80162-TC; 80195; 80202-TC; 81000-TC; 82247-TC; 82248-TC; 82272-TC; 82570-TC; 82728-TC; 82962-TC; 83540-TC; 83605-TC; 83735-TC; 84100-TC; 84155-TC; 84300-TC; 84443-TC; 85025-TC; 86580-TC; 87040-TC; 87070-TC; 87081-TC; 87086-TC; 87186-TC; 94003-TC; 94760-TC; 94762-TC; 94799-TC; 97110-TC; 99082-TC; A4216; A4349; A4623; A7526; J0690; J0692; J1815; J1953; J2185; J2916; J3370; J7030; J7060; Q0162

== ENCOUNTER 2020-02-16 20:23 | Outpatient (CLI) | payer MEDICARE, OTHER ==
[~2020-02-16 20:23] MED LIST: ACET650S26 GT; ALBU18HF2 IH; APIX2.5T GT; BALS60OI TP; BLOO-668 IN; DEXT50DI8 IV; DIGO125T GT; FURO-145 GT; HYDR-4384 GT; INSU100I4 SQ; IPRA3AMP23 IH; LANS30CA56 GT; LATA2.5D7 EACHEYE; LEVE250T2 GT; LEVO50TA8 GT; METO5SOL2 GT; ONDA4TAB5 GT; SIRO1SOL GT; TAMS-12 GT
[2020-03-21] MEDS ORDERED: VANC1VIA XX (16:20)
[2020-03-21] MEDS ORDERED: PIPE3.376 IV (16:20)
[2020-03-22] MEDS ORDERED: PANT40SU2 GT (07:32)
[2020-03-22] MEDS ORDERED: IPRA12.9 IH (07:32)
[2020-03-22] MEDS ORDERED: MAG30ORA GT (07:32)
[2020-03-22] MEDS ORDERED: MAGN400O6 GT (07:32)
[2020-03-22] MEDS ORDERED: ALBU18HF2 IH ×2 (07:32)
== END 2020-02-16 23:59 | disposition other institution (70) ==
LOC: XR 20:23
PROVIDERS: ATTEND Registered Nurse Critical Care Medicine
DX: Z75.3 Unavailability and inaccessibility of health-care facilities (principal)

== ENCOUNTER 2020-03-12 23:58 | Inpatient (IN) | payer MEDICARE, OTHER ==
[~2020-03-12] VITALS: Ht 165.1 cm; Wt 88.9 kg
[2020-03-13] VITALS (82 sets, daily range): BP systolic 80–145; BP diastolic 45–100
--- NOTE | 2020-03-13 00:19 | NUR ---
FROM [facility] SUB[facility] C/O ABNORMAL LABS AND FEVER, TMAX 103.2 RECEIVED MOTRIN 400MG AND TYLENOL 1G, 1L NS, AND CEFAPIME 2HR BALANCE WHEEL MOTION INSPECTOR. TO ER BED 5, VENT SETTINGS: AC 16 TV 500 FIO2 30% PEEP 5
[2020-03-13 00:22] LABS: BASOPHILS % (AUTO) 0.3 % (0.0-2.0); EOSINOPHILS % (AUTO) 0.1 % (0.0-6.0); HEMATOCRIT 32 % (39-51); HEMOGLOBIN 10.1 g/dL (13.5-17.5); LYMPHOCYTES # (AUTO) 0.1 /CMM (0.8-4.8); LYMPHOCYTES % (AUTO) 1.5 % (20.0-44.0); MEAN CORPUSCULAR HGB CONC 31 g/dl (31.0-36.0); MEAN CORPUSCULAR VOLUME 91 fL (80-96); MONOCYTES % (AUTO) 0.2 % (2.0-12.0); NEUTROPHILS # (AUTO) 6.8 /CMM (1.8-8.9); NEUTROPHILS % (AUTO) 97.9 % (43.0-81.0); PLATELET COUNT (AUTO) 149 /CMM (150-450); RED BLOOD CELL COUNT(AUTO) 3.52 MIL/uL (4.5-6.0); WHITE BLOOD COUNT (AUTO) 6.9 K/uL (4.3-11.0)
[2020-03-13] MEDS ORDERED: ACETAMINOPHEN 650 MG/SUPP.RECT RC ONE ×2 (00:24→00:30)
[2020-03-13] MEDS ORDERED: IV NS 0.9% 1,000 ML BAG IV ONE (00:30)
--- NOTE | 2020-03-13 00:30 | NUR ---
RECEIVED TRACH PATIENT ON VENT ON NOTED SETTING PER MD ORDERS. PT TRACH IS SIZE IS SHILEY 8. GEOGRAPHY DEPARTMENT CHAIR DONE. AMBU BAG AT BEDSIDE. VENT PLUGGED INTO RED OUTLET. ALARMS ON AND AUDIBLE. SX DONE PRN. WILL CONT TO MONITOR PT. Addendum: 03/13/20 at 0032 by DEVENDRA CHAWLA RT Amended: Links added.
[2020-03-13 00:33] LABS: CALCIUM, SERUM 8.8 mg/dL (8.5-10.1); CARBON DIOXIDE 23 mmol/L (21-32); CHLORIDE 99 mmol/L (98-107); CREATININE 1.8 mg/dL (0.6-1.3); GLUCOSE 144 mg/dL (74-106); POTASSIUM 3.5 mmol/L (3.5-5.1); SODIUM SERUM 137 mmol/L (136-145); UREA NITROGEN, BLOOD 23 mg/dL (7-18)
[2020-03-13 00:45] LABS: ALANINE AMINOTRANSFERASE 38 U/L (12-78); ALBUMIN 3.2 g/dL (3.4-5.0); ALKALINE PHOSPHATASE 101 U/L (46-116); ASPARTATE AMINOTRANSFERASE 75 U/L (15-37); B-TYPE NATRIURETIC PEPTIDE 7021 PG/ML (0-125); BILIRUBIN,DIRECT 0.9 mg/dL (0.0-0.2); BILIRUBIN,TOTAL 1.2 mg/dL (0.2-1.0); TOTAL PROTEIN, SERUM 7.7 g/dL (6.4-8.2)
[2020-03-13 00:48] LABS: APPEARANCE,URINE Slightly Cloudy (CLEAR); BILIRUBIN,URINE Negative (NEGATIVE); BLOOD, URINE Small Ery/uL (NEGATIVE); COLOR,URINE Yellow (YELLOW); KETONES,URINE Negative (NEGATIVE); LEUKOCYTE ESTERASE ,URINE Negative (NEGATIVE); NITRITE, URINE Negative (NEGATIVE); PROTEIN,URINE >=300 mg/dl (NEGATIVE); UGLUCOSE Negative (NEGATIVE); UROBILINOGEN,URINE 0.2 EU/dL (0.2)
[2020-03-13 01:13] LABS: RBC,URINE 0-2 /HPF (0-2)
[2020-03-13 01:14] LABS: BACTERIA,URINE Moderate /HPF (None Seen); SQUAMOUS EPITHELIAL CELL,UR Rare /HPF (None Seen)
[2020-03-13 01:15] LABS: URINE AMORPHOUS URATE Few /HPF (None Seen)
[2020-03-13] MEDS ORDERED: PIPERACILLIN /TAZOBACTAM 3.375 G in IV D5W 50 ML IV ONE (01:30)
[2020-03-13] MEDS ORDERED: VANCOMYCIN 1 GM in IV D5W 250 ML IV ONE (01:30)
[2020-03-13] MEDS ORDERED: PIPERACILLIN /TAZOBACTAM 3.375 G VIAL IV ONE (01:32)
[2020-03-13] MEDS ORDERED: VANCOMYCIN 500 MG VIAL ONE (01:33)
[2020-03-13] MEDS ORDERED: VANCOMYCIN 1 GM VIAL ONE (01:34)
--- NOTE | 2020-03-13 01:39 | NUR ---
BED ASSIGNMENT 263
[2020-03-13] MEDS ORDERED: NOREPINEPHRINE 4 MG/4 ML AMPUL IV ONE (02:26)
[2020-03-13] MEDS ORDERED: ONDANSETRON 4 MG TAB.RAPDIS GT PRN (02:30)
[2020-03-13] MEDS ORDERED: DEXTROSE 50%-WATER 50 ML DISP.SYRIN IV PRN ×2 (02:30→15:00)
[2020-03-13] MEDS ORDERED: MAGNESIUM HYDROXIDE 30 ML UDC PO PRN (02:30)
[2020-03-13] MEDS ORDERED: ZOLPIDEM TARTRATE 5 MG TABLET PO PRN (02:30)
[2020-03-13] MEDS ORDERED: ACETAMINOPHEN 325 MG TABLET PO PRN (02:30)
[2020-03-13] MEDS ORDERED: ACETAMINOPHEN 650 MG/20.3 ML UDC GT PRN (02:30)
[2020-03-13] MEDS ORDERED: HYDROCODONE/APAP 5/325MG 1 EACH TABLET PO PRN (02:30)
[2020-03-13] MEDS ORDERED: ALBUTEROL SULFATE INH 18 GM HFA.AER.AD IH PRN ×2 (02:30→08:01)
[2020-03-13] MEDS ORDERED: MAG HYDROX/AL HYDROX/SIMETH 30 ML UDC PO PRN (02:30)
[2020-03-13] MEDS ORDERED: ONDANSETRON HCL/PF 4 MG/2 ML VIAL IVP PRN (02:30)
[2020-03-13] MEDS: NOREPINEPHRINE 8 MG in IV NS 0.9% 242 ML IV PRN ×4 (02:44→17:33)
--- NOTE | 2020-03-13 03:14 | NUR ---
report given to fabricio guerra
--- NOTE | 2020-03-13 03:35 | NUR ---
DOUBLE CUTTER NOTES RECEIVED PT FROM ER VIA BED, ON TRACH/VENT SETTING ORDERED AC 16 TV 500 FI02 30% PEEP +5 TOLERATING WELL WITH SPO2 98% NO SIGN AND SYMPTOMS OF DISTRESS, HOOK TO TELE MONITOR WITH CURRENT READING SINUS TACHY 110, HEAD TO TOE ASSESSMENT DONE, WITH GTUBE CLAMP PATENT RESIDUAL AND PLACEMENT CHECKED, PT HAVE ARELIS MIDLINE WITH ONGOING LEVOPHED @ 0.3MCG/KG/MIN INFUSING WELL, WITH KNOX WITH YELLOW URINE FLOWING VIA GRAVITY ADMISSION ASSESSMENT DONE, PLACE ON DROPLET ISOLATION PRECAUTION R/O COVID, SAFETY MEASURE INITIATED, BED ON LOWEST POSITION AND LOCKED SIDE RAILS UP CALL LIGHT WITHIN REACH WILL CONT TO MONITOR
[2020-03-13] MEDS: INSULIN LISPRO/ASPART 100 UNIT/ML CARTRIDGE SQ SCH ×2 (05:00→13:00)
[2020-03-13] MEDS: IV NS 0.9% 1,000 ML IV SCH ×2 (05:08→12:30)
[2020-03-13] MEDS: METOCLOPRAMIDE HCL 10 MG/10 ML UDC GT SCH ×3 (05:20→21:53)
[2020-03-13] MEDS: LEVOTHYROXINE SODIUM 50 MCG TABLET GT SCH (05:20)
--- NOTE | 2020-03-13 05:30 | NUR ---
RETURNED TELEPHONE EQUIPMENT APPRAISER NOTES TROPONIN OF 8.898 AND LACTIC ACID 6.[address] RODRIGUEZ WITH NO NEW ORDER ALSO ASK ABOUT THE SLIDING SCALE OF INSULIN ASPART WHICH HE ORDERED PT BLOOD SUGAR IS 170 HE SAID DONT GIVE ANYTHING RIGHT NOW AND LET THE MORNING DOCTOR ORDER THE SLIDING SCALE
[2020-03-13] MEDS: BLOOD SUGAR DIAGNOSTIC 1 EACH STRIP IN SCH ×4 (05:45→21:54)
[2020-03-13] MEDS ORDERED: FUROSEMIDE 20 MG TABLET GT SCH (06:00)
[2020-03-13] MEDS ORDERED: PREVACID (NF) 30 MG TAB GT SCH (06:00)
[2020-03-13] MEDS ORDERED: NOREPINEPHRINE 8MG/250ML RTU 250 ML IV ONE ×2 (06:32→11:11)
--- NOTE | 2020-03-13 07:00 | NUR ---
BIOFUELS PRODUCTION ASSOCIATE NOTES CALLED PHARMACY ABOUT LANSOPRASOLE THEY SAID THEY DONT HAVE IT AND THEY WILL CHANGE IT TO PROTONIX WILL ENDORSE TO AM SHIFT NOTES
[2020-03-13] MEDS ORDERED: LEVOFLOXACIN 750 MG /D5W 150ML 750 MG in PREMIX 1 EA IV SCH (07:30)
--- NOTE | 2020-03-13 07:46 | NUR ---
RN CLOSING NOTES PT ON BED ASLEEP, ON TRACH/VENT SETTING ORDERED, NO SIGN AND SYMPTOMS OF RESPIRATORY DISTRESS SPO2 93%, STILL ON GTUBE ON PLACED AND CLAMPED, ON TELE MONITOR WITH READING SINUS RHYTHM 80'S, ALL NEEDS ATTENDED, SAFETY MEASURE MAINTAINED BED ON LOWEST POSITION AND LOCKED SIDE RAILS UP X3 WILL ENDORSED TO AM SHIFT NURSE
[2020-03-13] MEDS ORDERED: CEFEPIME 2 GM in IV NS 0.9% 50 ML IV SCH (08:00)
[2020-03-13] MEDS ORDERED: ALBUTEROL SULFATE 8 GM HFA.AER.AD IH PRN (08:18)
[2020-03-13] MEDS: ALBUTEROL SULFATE 8 GM HFA.AER.AD IH SCH ×3 (08:30→21:28)
[2020-03-13] MEDS ORDERED: FEE PK DOSING 1 MIN EA MC ONE (08:50)
[2020-03-13] MEDS ORDERED: NUT.237L30 GT (08:50)
[2020-03-13] MEDS ORDERED: ALLA266C2 TP (08:50)
[2020-03-13] MEDS ORDERED: FERR300L GT (08:50)
[2020-03-13] MEDS ORDERED: GUAI100S11 GT (08:50)
[2020-03-13] MEDS ORDERED: CEFE1VIA3 IV (08:50)
[2020-03-13] MEDS ORDERED: OMEP20CA15 GT (08:50)
[2020-03-13] MEDS ORDERED: ALBU1.257 IH (08:50)
[2020-03-13] MEDS ORDERED: GLIP5TAB13 GT (08:50)
[2020-03-13] MEDS ORDERED: INSU100V10 SQ (08:50)
[2020-03-13] MEDS ORDERED: SITA100T GT (08:50)
[2020-03-13] MEDS ORDERED: SIME80TA15 GT (08:52)
[2020-03-13] MEDS ORDERED: VITA56.7 TP (08:52)
[2020-03-13] MEDS ORDERED: SIROLIMUS 1 MG GT SCH (09:00)
[2020-03-13 10:04] LABS: MAGNESIUM 2.1 mg/dL (1.8-2.4); PHOSPHORUS 2.9 mg/dL (2.5-4.9)
[2020-03-13] MEDS: PANTOPRAZOLE 40 MG/PACK PACK GT SCH (10:26)
[2020-03-13] MEDS: HYDROCORTISONE SOD SUCCINATE 100 MG/2 ML VIAL IV SCH ×4 (10:26→21:54)
[2020-03-13] MEDS: LEVETIRACETAM SOL (5 ML) 100 MG/ML UDC GT SCH ×2 (10:26→21:53)
[2020-03-13] MEDS: APIXABAN 2.5 MG TABLET GT SCH ×2 (10:27→17:41)
[2020-03-13 10:44] LABS: THYROID STIMULATING HORMONE 2.41 uIU/mL (0.358-3.74)
[2020-03-13] MEDS: IPRATROPIUM BROMIDE 14 GM INHALER (or 12.9 GM) IH SCH ×2 (13:30→21:27)
[2020-03-13] MEDS: DIGOXIN 0.125 MG TABLET GT SCH (14:02)
[2020-03-13] MEDS: SIROLIMUS 1 MG GT SCH (15:10)
[2020-03-13] MEDS: INSULIN ASPART/LISPRO 100 UNIT/ML CARTRIDGE SQ PRN ×2 (15:15→23:05)
[2020-03-13] MEDS: MEROPENEM 1 G in IV NS 0.9% 100 ML IV SCH (17:34)
[2020-03-13] MEDS: IV NS 0.9% 1,000 ML IV PRN (17:34)
--- NOTE | 2020-03-13 19:30 | NUR ---
END OF SHIFT NOTE: PT HAD AN UNEVENTFUL SHIFT. 1 BM THIS SHIFT. LEVO INFUSING PER MD ORDERS, CURRENTLY AT 0.2 MCG/KG/MIN. MD NOTIFIED OF BLOOD GLUCOSE OF 324, INSULIN SLIDING SCALE ORDERED. PT CHECKED ON HOURLY AND PRN BY NURSING STAFF.
--- NOTE | 2020-03-13 19:30 | NUR ---
RESEARCH COMPLIANCE SPECIALIST RCD PT W/DX RESP FAIL; SEPSIS; NSTEMI. PT IS AWAKE DOES NOT FOLLOW COMMANDS. R/O COVID. NSR ON MONITOR. SHILEY 8 W/VENT SETTINGS AC 16 500 30% +5. G TUBE CLAMPED. NPO X MEDS. PT W/BM; NOTED GREEN MUCOID. EXCORIATION/WOUND TO SCROTUM. APPLIED ZGUARD. DEANNE MIDLINE W/NS @ 100 ML/HR; LEVO @ 0.2 MCG/KG/MIN; TITRATE PT CONDITION PERMITS.
[2020-03-13] MEDS: LATANOPROST EYE DROP 0.005% 2.5 ML BOTTLE EACHEYE SCH (21:53)
[2020-03-13] MEDS: TAMSULOSIN 0.4 MG CAP.SR.24H GT SCH (21:53)
[2020-03-13] MEDS: Z GUARD REMEDY 2 OZ OINT TP PRN (21:55)
[2020-03-13] MEDS ORDERED: DIGOXIN 0.125 MG TABLET GT SCH (22:00)
[2020-03-14] VITALS (68 sets, daily range): BP systolic 78–145; BP diastolic 45–110
[2020-03-14] MEDS: IPRATROPIUM BROMIDE 14 GM INHALER (or 12.9 GM) IH SCH ×4 (01:37→20:17)
[2020-03-14] MEDS: ALBUTEROL SULFATE 8 GM HFA.AER.AD IH SCH ×4 (01:38→20:11)
[2020-03-14] MEDS: VANCOMYCIN 1 GM in IV D5W 250 ML IV SCH (02:05)
[2020-03-14] MEDS: NOREPINEPHRINE 8 MG in IV NS 0.9% 242 ML IV PRN (02:05)
[2020-03-14] MEDS: MEROPENEM 1 G in IV NS 0.9% 100 ML IV SCH ×2 (03:00→15:11)
[2020-03-14 04:37] LABS: BASOPHILS # (AUTO) 0.3 /CMM (0.0-0.2); BASOPHILS % (AUTO) 0.8 % (0.0-2.0); HEMATOCRIT 30 % (39-51); HEMOGLOBIN 9.3 g/dL (13.5-17.5); LYMPHOCYTES # (AUTO) 0.4 /CMM (0.8-4.8); LYMPHOCYTES % (AUTO) 1.1 % (20.0-44.0); MEAN CORPUSCULAR HGB CONC 31 g/dl (31.0-36.0); MEAN CORPUSCULAR VOLUME 92 fL (80-96); MONOCYTES % (AUTO) 2.4 % (2.0-12.0); NEUTROPHILS # (AUTO) 39.9 /CMM (1.8-8.9); NEUTROPHILS % (AUTO) 95.7 % (43.0-81.0); PLATELET COUNT (AUTO) 139 /CMM (150-450); RED BLOOD CELL COUNT(AUTO) 3.24 MIL/uL (4.5-6.0)
[2020-03-14 04:40] LABS: WHITE BLOOD COUNT (AUTO) 41.6 K/uL (4.3-11.0)
[2020-03-14 04:43] LABS: CHOLESTEROL 113 mg/dL (<200); CREATINE KINASE, TOTAL 212 U/L (39-308); HDL CHOLESTEROL 41 mg/dL (40-60); LDL 44 mg/dL (0-99); TRIGLYCERIDES 215 mg/dL (30-150)
[2020-03-14 05:23] LABS: ALANINE AMINOTRANSFERASE 46 U/L (12-78); ALBUMIN 2.9 g/dL (3.4-5.0); ALKALINE PHOSPHATASE 53 U/L (46-116); ASPARTATE AMINOTRANSFERASE 81 U/L (15-37); BILIRUBIN,TOTAL 2.1 mg/dL (0.2-1.0); CALCIUM, SERUM 7.7 mg/dL (8.5-10.1); CARBON DIOXIDE 19 mmol/L (21-32); CHLORIDE 95 mmol/L (98-107); CREATININE 2.1 mg/dL (0.6-1.3); GLUCOSE 324 mg/dL (74-106); PHOSPHORUS 3.4 mg/dL (2.5-4.9); POTASSIUM 4.1 mmol/L (3.5-5.1); SODIUM SERUM 131 mmol/L (136-145); TOTAL PROTEIN, SERUM 7.6 g/dL (6.4-8.2); UREA NITROGEN, BLOOD 31 mg/dL (7-18)
[2020-03-14] MEDS: HYDROCORTISONE SOD SUCCINATE 100 MG/2 ML VIAL IV SCH ×2 (05:31→12:27)
[2020-03-14] MEDS: LEVOTHYROXINE SODIUM 50 MCG TABLET GT SCH (05:31)
[2020-03-14] MEDS: BLOOD SUGAR DIAGNOSTIC 1 EACH STRIP IN SCH ×3 (05:31→22:50)
[2020-03-14] MEDS: METOCLOPRAMIDE HCL 10 MG/10 ML UDC GT SCH ×3 (05:31→21:50)
[2020-03-14 05:32] LABS: BAND % (MANUAL) 25 % (0.0-5.0); LYMPHOCYTES % (MANUAL) 1 % (16-48); MONOCYTES % (MANUAL) 2 % (0-11.0); NEUTROPHILS % (MANUAL) 72 (42-76)
[2020-03-14] MEDS: INSULIN ASPART/LISPRO 100 UNIT/ML CARTRIDGE SQ PRN ×3 (05:45→22:52)
--- NOTE | 2020-03-14 06:15 | NUR ---
INK BLENDER PT W/3 GREEN MUCOID FORMED BOWEL MOVEMENTS; FORMED. CONTINUE TO MONITOR.
[2020-03-14] MEDS: IV NS 0.9% 1,000 ML IV PRN ×2 (06:35→17:57)
--- NOTE | 2020-03-14 07:45 | NUR ---
LEAD WEB DEVELOPER: pt is obtunded, with open eyes, no eyes contact, trace R.arm activity, unable to follow commands, rest, no SOB, O2sat. over 95%, on 30% FiO2, suctioned with large amount, Afib HR 90-115 on monitor now, SBP over 90, continue titrate Levo gtt, GT/NPO, abdomen is disbanded, low urine out?[id number], IVF
--- NOTE | 2020-03-14 08:10 | NUR ---
GORE MAKER: updated with pt.current condition, VS, suction amount, see new orders
[2020-03-14] MEDS: APIXABAN 2.5 MG TABLET GT SCH ×2 (08:12→16:58)
[2020-03-14] MEDS: LEVETIRACETAM SOL (5 ML) 100 MG/ML UDC GT SCH ×2 (08:12→21:50)
[2020-03-14] MEDS: PANTOPRAZOLE 40 MG/PACK PACK GT SCH (08:12)
--- NOTE | 2020-03-14 08:12 | NUR ---
WOUND CARE CONSULT: REVIEWED CHART AND NURSING DOCUMENTATION WHICH STATES THAT PT NOTED TO HAVE SCROTAL EXCORIATION PRESENT ON ADMISSION. DR GONZALES NOTIFIED OF PT ADMISSION FOR CONSULT. RECOMMENDATIONS MADE FOR SKIN PROTECTION. DISCUSSED WITH NURSING STAFF. [facility]. WILL SEE PRKendall ROSALES IN AGREEMENT WITH PLAN OF CARE.
--- NOTE | 2020-03-14 08:40 | NUR ---
DATA ADMINISTRATOR: SBP is over 100/stopped Levophed gtt, lactic acid 3.4/down, UA/stool OB samples+, ID MECHANICAL ENGINEERING TECHNOLOGIST updated with pt.current condition
[2020-03-14] MEDS ORDERED: CEFEPIME 2 GM in IV D5W 100 ML IV SCH (09:00)
[2020-03-14] MEDS: SIROLIMUS 1 MG GT SCH (09:00)
--- NOTE | 2020-03-14 10:46 | NUR ---
BANQUET CAPTAIN: spoke with pharmacist to get Sirolimus
--- NOTE | 2020-03-14 12:00 | NUR ---
RADIAL DRILL PRESS OPERATOR FOR PLASTIC: Ida IDNP recommended to change midline/charge nurse notified, mucoid stool reposted/if diarrhea episodes-send stool cdiff sample per protocol, changed atbxs, BCx2 taken
[2020-03-14] MEDS: DIGOXIN 0.125 MG TABLET GT SCH (12:28)
[2020-03-14] MEDS ORDERED: DOSING PER PHARMACY-AMIKACI IV XX PRN (14:00)
[2020-03-14] MEDS ORDERED: FEE PK DOSING 1 MIN EA MC ONE (14:04)
--- NOTE | 2020-03-14 15:32 | NUR ---
RN ICUI: pt.is obtunded, rest, no SOB, afib HR 90-100, suctioned via TT with lavage: tick yellowish secretion, SBP is over 90/pressor of since 0800, abdomen US done, all skin/PM/bedbath/wounds care done
[2020-03-14 15:56] LABS: APPEARANCE,URINE SL CLOUDY (CLEAR); BILIRUBIN,URINE NEGATIVE (NEGATIVE); BLOOD, URINE MODERATE Ery/uL (NEGATIVE); COLOR,URINE YELLOW (YELLOW); KETONES,URINE TRACE (NEGATIVE); LEUKOCYTE ESTERASE ,URINE NEGATIVE (NEGATIVE); NITRITE, URINE NEGATIVE (NEGATIVE); PH,URINE 5.5 (5.0-8.0); PROTEIN,URINE 100 mg/dl (NEGATIVE); UGLUCOSE NEGATIVE (NEGATIVE); UROBILINOGEN,URINE 0.2 EU/dL (0.2)
[2020-03-14] MEDS: AMIKACIN 400 MG in IV D5W 100 ML IV SCH (16:07)
[2020-03-14 16:09] LABS: CREATININE, URINE 74.7 MG/DL (30.0-125.0); URINE TOTAL PROTEIN 157.9 mg/dL (0-11.9)
[2020-03-14 16:10] LABS: BACTERIA,URINE 2+ /HPF (None Seen)
[2020-03-14 16:11] LABS: COARSE GRANULAR CASTS,URINE Few /LPF (None Seen); URINE AMORPHOUS URATE Few /HPF (None Seen)
[2020-03-14 16:32] LABS: EOSINOPHIL,URINE None Seen
[2020-03-14 16:35] LABS: SQUAMOUS EPITHELIAL CELL,UR 0-2 /HPF (None Seen)
--- NOTE | 2020-03-14 19:45 | NUR ---
ICU/AEROSPACE PRODUCTS SALES ENGINEER REPORT RECEIVED FROM THE TO DAY NURSE. SEE FLOWSHEET FOR ASSESSMENT, SKIN ISSUES ARE ADDRESSED ON FLOWSHEET ALONG WITH INTERVENTION. PT IS AWAKE, OPENS EYES BUT DOESN'T TRACK. PT HAS TRACH TOLERATES CURRENT VENT SETTINGS WELL WITH SATURATION AT 99-100%. WILL CONTINUE TO MONITOR THIS PT AND HIS SATURATION. PT WAS TURNED AND REPOSITIONED FOR COMFORT AND CARE. NO ACUTE DISTRESS SEEN AT THIS TIME.
[2020-03-14] MEDS: TAMSULOSIN 0.4 MG CAP.SR.24H GT SCH (21:50)
[2020-03-14] MEDS: LATANOPROST EYE DROP 0.005% 2.5 ML BOTTLE EACHEYE SCH (21:51)
[2020-03-15] VITALS (42 sets, daily range): BP systolic 83–143; BP diastolic 46–88
--- NOTE | 2020-03-15 00:45 | NUR ---
RT NOTE Pt rec'd trached on [facility] vent on AC mode. Pt shows no signs of resp distress or sob. Pt sx'd for thick mod amt of pale yellow secretions. Alarms are set and audible. Trach is patent and secured. Ambu bag bedside. Vent plugged into red outlet. Addendum: 03/15/20 at 0047 by RENATE CHAVEZ RT Amended: Links added.
[2020-03-15] MEDS: ALBUTEROL SULFATE 8 GM HFA.AER.AD IH SCH ×4 (01:06→20:10)
[2020-03-15] MEDS: IPRATROPIUM BROMIDE 14 GM INHALER (or 12.9 GM) IH SCH ×4 (01:07→20:10)
[2020-03-15] MEDS: VANCOMYCIN 1 GM in IV D5W 250 ML IV SCH (01:55)
[2020-03-15] MEDS: MEROPENEM 1 G in IV NS 0.9% 100 ML IV SCH ×2 (03:21→15:02)
[2020-03-15 05:04] LABS: BASOPHILS % (AUTO) 0.1 % (0.0-2.0); EOSINOPHILS % (AUTO) 1.8 % (0.0-6.0); HEMATOCRIT 27 % (39-51); HEMOGLOBIN 8.6 g/dL (13.5-17.5); LYMPHOCYTES # (AUTO) 0.4 /CMM (0.8-4.8); LYMPHOCYTES % (AUTO) 1.7 % (20.0-44.0); MEAN CORPUSCULAR HGB CONC 32 g/dl (31.0-36.0); MEAN CORPUSCULAR VOLUME 90 fL (80-96); MONOCYTES # (AUTO) 0.8 /CMM (0.1-1.30); NEUTROPHILS # (AUTO) 24.1 /CMM (1.8-8.9); NEUTROPHILS % (AUTO) 93.4 % (43.0-81.0); RED BLOOD CELL COUNT(AUTO) 2.98 MIL/uL (4.5-6.0); WHITE BLOOD COUNT (AUTO) 25.8 K/uL (4.3-11.0)
[2020-03-15] MEDS: LEVOTHYROXINE SODIUM 50 MCG TABLET GT SCH (05:09)
[2020-03-15] MEDS: BLOOD SUGAR DIAGNOSTIC 1 EACH STRIP IN SCH ×3 (05:09→22:16)
[2020-03-15] MEDS: METOCLOPRAMIDE HCL 10 MG/10 ML UDC GT SCH ×3 (05:09→21:32)
[2020-03-15] MEDS: IV NS 0.9% 1,000 ML IV PRN ×2 (05:09→14:57)
[2020-03-15] MEDS: INSULIN ASPART/LISPRO 100 UNIT/ML CARTRIDGE SQ PRN ×2 (05:20→22:15)
[2020-03-15 05:24] LABS: ALANINE AMINOTRANSFERASE 33 U/L (12-78); ALBUMIN 2.5 g/dL (3.4-5.0); ALKALINE PHOSPHATASE 42 U/L (46-116); BILIRUBIN,TOTAL 0.9 mg/dL (0.2-1.0); CALCIUM, SERUM 7.3 mg/dL (8.5-10.1); CARBON DIOXIDE 22 mmol/L (21-32); CHLORIDE 99 mmol/L (98-107); CREATININE 2.2 mg/dL (0.6-1.3); GLUCOSE 176 mg/dL (74-106); PHOSPHORUS 3.2 mg/dL (2.5-4.9); POTASSIUM 3.7 mmol/L (3.5-5.1); SODIUM SERUM 132 mmol/L (136-145); TOTAL PROTEIN, SERUM 6.9 g/dL (6.4-8.2); UREA NITROGEN, BLOOD 35 mg/dL (7-18)
[2020-03-15 05:32] LABS: IRON, SERUM 32 ug/dl (50-175); TOTAL IRON BINDING CAPACITY 182 ug/dl (250-450)
[2020-03-15 05:39] LABS: ASPARTATE AMINOTRANSFERASE 46 U/L (15-37)
[2020-03-15 05:42] LABS: BAND % (MANUAL) 8 % (0.0-5.0); LYMPHOCYTES % (MANUAL) 2 % (16-48); MONOCYTES % (MANUAL) 4 % (0-11.0); NEUTROPHILS % (MANUAL) 86 (42-76)
[2020-03-15 05:44] LABS: PLATELET COUNT (AUTO) 155 /CMM (150-450)
[2020-03-15 05:51] LABS: DIGOXIN 1.33 ng/mL (0.90-2.00)
[2020-03-15 05:59] LABS: FERRITIN 2205 ng/mL (8-388); THYROID STIMULATING HORMONE 3.366 uIU/mL (0.358-3.74); URIC ACID 7.9 mg/dL (2.6-7.2)
[2020-03-15 06:39] LABS: OCCULT BLOOD STOOL NEGATIVE (NEGATIVE)
--- NOTE | 2020-03-15 07:45 | NUR ---
STUD MASTER/MISTRESS: pt is obtunded, can open eyes by touch, no eyes contact/no interaction, unable to follow commands, trace arms activity, rest, no grimacing, no SOB, suctioned well, O2sat. over 95%, afib HR 80-90, SBP over 100, NPO/abdomen is distended, abd.US: gallstones, mild ascites, one liquid BM over night, stool OB -, lactic acid 1.8/down, I/O +530ml/24hrs, IVF: NS 100ml/h, charge nurse is aware re to change midline request, no critical labs
--- NOTE | 2020-03-15 08:02 | NUR ---
INSPECTOR CHIEF: faxed request for ID&sensi BC final report to [facility], pt.daughter in law updated with POC, pt condition, VS, orders
--- NOTE | 2020-03-15 08:45 | NUR ---
BUILDING DRAFTER: updated with pt.current condition, VS, neurostatus, suction amount, BMs, I/O, IVF, microbio/results, abd.US, ordered: DAREN
[2020-03-15] MEDS: APIXABAN 2.5 MG TABLET GT SCH ×2 (08:54→16:52)
[2020-03-15] MEDS: LEVETIRACETAM SOL (5 ML) 100 MG/ML UDC GT SCH ×2 (08:54→21:32)
[2020-03-15] MEDS: HYDROCORTISONE SOD SUCCINATE 100 MG/2 ML VIAL IV SCH (08:54)
[2020-03-15] MEDS: SIROLIMUS 1 MG GT SCH (08:54)
[2020-03-15] MEDS: PANTOPRAZOLE 40 MG/PACK PACK GT SCH (08:54)
--- NOTE | 2020-03-15 12:00 | NUR ---
FISHING VESSEL MATE: evaluated pt/updated with pt current status/neurostatus, VS, pressor off, O2sat/suction amount, I/O, NPO, BG/ISS, multiple Bms, NPO, meds, labs, ordered HIDA
[2020-03-15 13:06] LABS: PTH, INTACT 336 pg/mL (15-65)
--- NOTE | 2020-03-15 13:45 | NUR ---
MILLINERY SALESPERSON: was in unit/updated by charge nurse
--- NOTE | 2020-03-15 15:21 | NUR ---
INSPECTOR STRUCTURAL BONDING: called to [facility]: nobody answering
[2020-03-15] MEDS: AMIKACIN 400 MG in IV D5W 100 ML IV SCH (15:41)
--- NOTE | 2020-03-15 21:39 | NUR ---
RECEIVED PT TRACHED ON VENT. PT HAS DENISE 8. TRACH SECURE, CUFF BUN PANNER. NO RESP DISTRESS NOTED. SX'D FOR SML AMT OF THICK YELLOW SECRETIONS. VENT ALARMS SET AND AUDIBLE. CONTINUE [facility] VENT SUPPORT. Addendum: 03/15/20 at 2141 by CANDICE ECKERT RT Amended: Links added.
[2020-03-15] MEDS: LATANOPROST EYE DROP 0.005% 2.5 ML BOTTLE EACHEYE SCH (21:41)
[2020-03-15] MEDS: TAMSULOSIN 0.4 MG CAP.SR.24H GT SCH (21:42)
[2020-03-16] VITALS (28 sets, daily range): BP systolic 104–166; BP diastolic 51–106
[2020-03-16] MEDS: IPRATROPIUM BROMIDE 14 GM INHALER (or 12.9 GM) IH SCH ×5 (00:53→20:12)
[2020-03-16] MEDS: ALBUTEROL SULFATE 8 GM HFA.AER.AD IH SCH ×4 (00:53→20:14)
[2020-03-16] MEDS: IV NS 0.9% 1,000 ML IV PRN ×2 (01:12→12:39)
[2020-03-16 04:33] LABS: HEMATOCRIT 28 % (39-51); HEMOGLOBIN 8.7 g/dL (13.5-17.5); MEAN CORPUSCULAR HGB CONC 31 g/dl (31.0-36.0); MEAN CORPUSCULAR VOLUME 90 fL (80-96); PLATELET COUNT (AUTO) 102 /CMM (150-450); RED BLOOD CELL COUNT(AUTO) 3.09 MIL/uL (4.5-6.0); WHITE BLOOD COUNT (AUTO) 25.2 K/uL (4.3-11.0)
[2020-03-16 04:45] LABS: ALANINE AMINOTRANSFERASE 26 U/L (12-78); ALBUMIN 2.6 g/dL (3.4-5.0); ALKALINE PHOSPHATASE 47 U/L (46-116); ASPARTATE AMINOTRANSFERASE 38 U/L (15-37); BILIRUBIN,TOTAL 0.7 mg/dL (0.2-1.0); CALCIUM, SERUM 7.4 mg/dL (8.5-10.1); CARBON DIOXIDE 22 mmol/L (21-32); CHLORIDE 104 mmol/L (98-107); CREATININE 2.2 mg/dL (0.6-1.3); GLUCOSE 116 mg/dL (74-106); MAGNESIUM 1.9 mg/dL (1.8-2.4); PHOSPHORUS 3.2 mg/dL (2.5-4.9); POTASSIUM 3.8 mmol/L (3.5-5.1); SODIUM SERUM 137 mmol/L (136-145); TOTAL PROTEIN, SERUM 6.8 g/dL (6.4-8.2); UREA NITROGEN, BLOOD 39 mg/dL (7-18)
[2020-03-16] MEDS: METOCLOPRAMIDE HCL 10 MG/10 ML UDC GT SCH ×3 (05:41→22:03)
[2020-03-16] MEDS: MEROPENEM 1 G in IV NS 0.9% 100 ML IV SCH ×2 (05:41→16:08)
[2020-03-16] MEDS: INSULIN ASPART/LISPRO 100 UNIT/ML CARTRIDGE SQ PRN (05:42)
[2020-03-16] MEDS: BLOOD SUGAR DIAGNOSTIC 1 EACH STRIP IN SCH ×3 (05:42→21:44)
[2020-03-16] MEDS: LEVOTHYROXINE SODIUM 50 MCG TABLET GT SCH (05:43)
[2020-03-16 06:56] LABS: BAND % (MANUAL) 8 % (0.0-5.0); LYMPHOCYTES % (MANUAL) 3 % (16-48); MONOCYTES % (MANUAL) 3 % (0-11.0); NEUTROPHILS % (MANUAL) 86 (42-76)
--- NOTE | 2020-03-16 07:40 | NUR ---
RN notes Patient in bed, resting comfortably with no distress noted. Breathing even and unlabored. Vent setting well tolerated. No physical manifestation of pain or discomfort. Alert to self, non verbal with eye tracking. No significant change of condition. Kept clean and dry. Endorsed to next shift for continuity of care.
--- NOTE | 2020-03-16 08:00 | NUR ---
ICU/RN INITIAL NOTES, AM RECEIVED REPORT FROM NIGHT NURSE. PT OPENS EYES, DOES NOT FOLLOW COMMANDS. TRACH TO VENT WITH SETTINGS ORDERED BY MD. NO ACUTE RESPIRATORY DISTRESS NOTED. A FIB ON TELE. PT CURRENTLY NPO EXCEPT MEDS. KNOX CATH IN PLACE, DRAINING. PIV AND MIDLINE PATENT AND INTACT, NO S/S OF INFECTION OR INFILTRATION NOTED, PER ID LINE CHANGE IS REQUESTED. NS INFUSING AT 100 ML/HR. ALL NEEDS WILL BE ATTENDED TO, SAFETY MEASURES TAKEN, BED IN LOW POSITION, SIDE RAILS UP, CALL LIGHT WITHIN REACH. TURNED AND REPOSITIONED.
[2020-03-16] MEDS: LEVETIRACETAM SOL (5 ML) 100 MG/ML UDC GT SCH ×2 (08:26→22:02)
[2020-03-16] MEDS: PANTOPRAZOLE 40 MG/PACK PACK GT SCH (08:26)
[2020-03-16] MEDS: APIXABAN 2.5 MG TABLET GT SCH ×2 (08:27→16:18)
[2020-03-16] MEDS: SIROLIMUS 1 MG GT SCH (08:34)
[2020-03-16] MEDS: AMIKACIN 400 MG in IV D5W 100 ML IV SCH (15:04)
--- NOTE | 2020-03-16 17:06 | NUR ---
ICU/RN: CRITICAL LAB, RECEIVED CALL THAT AMIKACIN LEVEL IS 10.8. PHARMACY ([facility]) CALLED AND INFORMED, I WAS INFORMED THEY WILL RE-DOSE AND RECHECK THE LEVEL TOMORROW. WILL ENDORSE TO NIGHT NURSE.
--- NOTE | 2020-03-16 18:30 | NUR ---
ICU/RN: REPORT ENDORSED TO ANNI TIAN. PT TRANSFERRED VIA BED AND ACLS GUIDELINES TO 310-1. ALL MEDICATIONS AND BELONGINGS SENT WITH PT. TRACH TO VENT WITH SETTINGS ORDERED. NO DISTRESS. ALL NEEDS ATTENDED TO, SAFETY MEASURES TAKEN. WILL CONTINUE CARE.
--- NOTE | 2020-03-16 18:45 | NUR ---
ELECTRICAL MACHINIST NOTES PATIENT AWAKE IN BED, REPORT RECEIVED FROM ANNI WALLS AT BEDSIDE. NO RESPIRATORY DISTRESS NOTED, ON MECHANICAL VENT ON PRESCRIBED SETTINGS. NO S/S OF ANY DISCOMFORT AT THIS TIME. INTERMODAL TRUCK DRIVER IN PLACE SR 80, VSS. PATIENT'S NEEDS ATTENDED, BED ON LOWEST LOCKED POSITION, SIDE RAILS UP X2, SAFETY PRECAUTIONS IN PLACE. WILL ENDORSE TRANSFER TO ANNI TREJO.
--- NOTE | 2020-03-16 19:00 | NUR ---
HYDRAULIC REPAIRER NOTES NOTICED PATIENT'S VENT NOT WORKING DUE TO EMERGENCY SOCKET NOT WORKING. PATIENT BAGGED WITH 100% O2 AND TRANSFERRED TO ANOTHER ROOM, PROBLEM RESOLVED, ENGINEERING INFORMED.
--- NOTE | 2020-03-16 19:30 | NUR ---
rn notes: received meds from day rn , meds from icu, merrem iv, inhaler proventil, all placed on pt's cassette.
--- NOTE | 2020-03-16 20:00 | NUR ---
rn notes: no bp/iv/blood draw on left arm as pt has previous/old av shunt posted on the room/wall
--- NOTE | 2020-03-16 21:00 | NUR ---
rn notes: abdomen distended, ascites noted, active bowel sound heard upon auscultation of the abdomen, pt has peg currently clamped, pt npo, awaiting for hida scan
--- NOTE | 2020-03-16 21:57 | NUR ---
RN NOTES/NEPHRO MD CALL BACK: SPOKED WITH DR FUNG, WITH ORDERS TO CHANGE IVF TO D5NS AT 100ML/HR. ORDER READ BACK VERIFIED AND CARRIED OUT
--- NOTE | 2020-03-16 21:58 | NUR ---
rn notes/nephro md return call: pt npo for hida scan tomorrow am, pt has brandon monge sched for tonight, per md okay to give, will be npo p mnm for hida scan in am. order read back verified and carried out.
[2020-03-16] MEDS: LATANOPROST EYE DROP 0.005% 2.5 ML BOTTLE EACHEYE SCH (22:00)
--- NOTE | 2020-03-16 22:00 | NUR ---
rn notes: contacted icu to follow up regarding eye drop, xalathan, atrovent inhaler, not found in icu, will follow up in am with pharmacy to have it deliver. will non admin drug not available
[2020-03-16] MEDS: TAMSULOSIN 0.4 MG CAP.SR.24H GT SCH (22:02)
[2020-03-16] MEDS: IV D5/ 0.9% NACL 1,000 ML IV PRN (22:02)
--- NOTE | 2020-03-16 23:55 | NUR ---
rn notes: pt for hida scan in am, npo p mn
[2020-03-17] VITALS: BP 119/74
[2020-03-17] MEDS: IPRATROPIUM BROMIDE 14 GM INHALER (or 12.9 GM) IH SCH ×5 (01:30→20:22)
[2020-03-17] MEDS: ALBUTEROL SULFATE 8 GM HFA.AER.AD IH SCH ×4 (01:54→20:21)
[2020-03-17] MEDS: MEROPENEM 1 G in IV NS 0.9% 100 ML IV SCH ×2 (02:36→15:51)
--- NOTE | 2020-03-17 03:40 | NUR ---
rn notes: atrovent mdi inhaler not available in icu cassette, not available in [facility], per rn sup no inhaler available in the night locker only in pharmacy, will f/u in am
[2020-03-17 04:00] VITALS: BP 133/69
[2020-03-17 04:20] VITALS: BP 133/69
[2020-03-17] MEDS: METOCLOPRAMIDE HCL 10 MG/10 ML UDC GT SCH ×3 (04:23→21:28)
[2020-03-17] MEDS: LEVOTHYROXINE SODIUM 50 MCG TABLET GT SCH (04:54)
[2020-03-17] MEDS: BLOOD SUGAR DIAGNOSTIC 1 EACH STRIP IN SCH ×3 (05:01→21:28)
[2020-03-17] MEDS: INSULIN ASPART/LISPRO 100 UNIT/ML CARTRIDGE SQ PRN ×2 (05:01→13:59)
--- NOTE | 2020-03-17 05:02 | NUR ---
BLOOD GLUCOSE 133: FINGERSTICK BLOOD GLUCOSE CHECK PERFORMED, RESULT OBTAINED IS 133, NO INSULIN ADMINISTERED PT NPO FOR HIDA SCAN SCHEDULED IN AM
--- NOTE | 2020-03-17 06:23 | NUR ---
rn notes: contacted pt's next of kin, son troy monroy [phone], consent for hida scan, explain risk and benefits, pt's son giving full consent to have the procedure done, charlie mejia cosigned/witness the telephone consent. corncob pipe manufacturing supervisorwan willson made aware
[2020-03-17] MEDS: IV D5/ 0.9% NACL 1,000 ML IV PRN ×2 (06:42→17:12)
--- NOTE | 2020-03-17 06:46 | NUR ---
end of shift report: received report form darrin rn at 191 last night. pt mech vent trache dependent with the ff setting: shiley #8, ac 16 tv 500 fio2 30%, peep 5. tele monitoring afib controlled hr 72. ambu bag at bed side. clinical alarms check and audible. connected to continuous pulse oximetry monitoring, suction set up secured. has peg, patent and flushing well, on clamped, pt npo per md for hida scan today, consent secured, and attached to chart. remains with generalized edeman and ascites. bue and ble kept offloaded on pillows. felipe catheter remains in placed, bag draining via gravity. mane midline remains patent and flushing well, infusing with d5ns at 100ml/hr. wound care, am care and complete linen change provided. vs remains stable, needs attended. safety precautions for fall remains engaged, call light in reach, will endorse to day rn for continuity of care.
[2020-03-17 07:03] LABS: BASOPHILS % (AUTO) 0.2 % (0.0-2.0); EOSINOPHILS % (AUTO) 1.8 % (0.0-6.0); HEMATOCRIT 32 % (39-51); HEMOGLOBIN 9.8 g/dL (13.5-17.5); LYMPHOCYTES # (AUTO) 0.6 /CMM (0.8-4.8); LYMPHOCYTES % (AUTO) 4.5 % (20.0-44.0); MEAN CORPUSCULAR HGB CONC 31 g/dl (31.0-36.0); MEAN CORPUSCULAR VOLUME 90 fL (80-96); MONOCYTES # (AUTO) 0.8 /CMM (0.1-1.30); MONOCYTES % (AUTO) 5.4 % (2.0-12.0); NEUTROPHILS # (AUTO) 12.4 /CMM (1.8-8.9); NEUTROPHILS % (AUTO) 88.1 % (43.0-81.0); PLATELET COUNT (AUTO) 105 /CMM (150-450); RED BLOOD CELL COUNT(AUTO) 3.55 MIL/uL (4.5-6.0); WHITE BLOOD COUNT (AUTO) 14.1 K/uL (4.3-11.0)
[2020-03-17 07:08] LABS: *SPE A/G RATIO 0.8 (0.7-1.7); *SPE ALPHA-1-GLOBULIN 0.3 g/dL (0.0-0.4); *SPE GLOBULIN, TOTAL 3.6 g/dL (2.2-3.9); *SPE M-SPIKE Not Observed g/dL (Not Observed); *SPEGAMMA GLOBULIN 1.3 g/dL (0.4-1.8)
[2020-03-17 07:16] LABS: CALCIUM, SERUM 7.2 mg/dL (8.5-10.1); CARBON DIOXIDE 22 mmol/L (21-32); CHLORIDE 106 mmol/L (98-107); GLUCOSE 134 mg/dL (74-106); MAGNESIUM 1.8 mg/dL (1.8-2.4); PHOSPHORUS 2.8 mg/dL (2.5-4.9); POTASSIUM 3.3 mmol/L (3.5-5.1); SODIUM SERUM 138 mmol/L (136-145); UREA NITROGEN, BLOOD 39 mg/dL (7-18)
[2020-03-17] MEDS: POTASSIUM CHLORIDE 20 MEQ POWDER PACKET GT SCH ×3 (08:24→13:35)
[2020-03-17] MEDS: LEVETIRACETAM SOL (5 ML) 100 MG/ML UDC GT SCH ×2 (08:24→21:28)
[2020-03-17] MEDS: PANTOPRAZOLE 40 MG/PACK PACK GT SCH (08:24)
[2020-03-17] MEDS: APIXABAN 2.5 MG TABLET GT SCH ×2 (08:25→17:23)
[2020-03-17] MEDS: SIROLIMUS 1 MG GT SCH (08:40)
[2020-03-17 09:40] VITALS: BP 139/97
--- NOTE | 2020-03-17 10:00 | NUR ---
RT PT TRANSPORTED TO [facility] @ 10:00 ON VENT WITH RN PRESENT. NO RESPIRATORY DISTRESS NOTED Addendum: 03/17/20 at 1710 by AMANDA ARELLANO RT Amended: Links added.
--- NOTE | 2020-03-17 13:22 | NUR ---
NM:DAREN PRIETO COMPLETED.TECH:RB
--- NOTE | 2020-03-17 14:00 | NUR ---
EXHIBITION ORGANISER NOTES WENT DOWN WITH PATIENT FOR HIDA SCAN, RT AMANDA ALSO MONITORING PATIENT.
--- NOTE | 2020-03-17 14:15 | NUR ---
RT PT TRANSPORTED ON VENT TO NUCLEAR MED WITH RN PRESENT. NO RESPIRATORY DISTRESS NOTED. Addendum: 03/17/20 at 1710 by AMANDA ARELLANO RT Amended: Links added.
--- NOTE | 2020-03-17 16:13 | NUR ---
POWER PLANT OPERATIONS MANAGER NOTES CALLED [facility] WITH THE NUMBER [phone]. CALLED X4 FOR RESULTS PER DR. MURPHY'S ORDER, COULD NOT LEAVE A MESSAGE, WILL ENDORSE TO ONCOMING NURSE.
--- NOTE | 2020-03-17 18:44 | NUR ---
SALES SUPPORT MANAGER NOTES PATIENT RESTING IN BED, NO RESPIRATORY DISTRESS, ON MECHANICAL VENT WITH PRESCRIBED SETTINGS. PATIENT WITH NO S/S OF ANY DISCOMFORT AT THIS TIME. PATIENT REPOSITIONED Q2HRS. PATIENT'S SKIN WARM TO TOUCH, IV ACCESS SITES INTACT AND PATENT. GT INTACT AND CLAMPED. KNOX CATH INTACT AND DRAINING YELLOW URINE. PATIENT'S NEEDS ATTENDED, BED ON LOWEST LOCKED POSITION, CALL LIGHT WITHIN REACH. WILL ENDORSE TO ONCOMING NURSE.
[2020-03-17 20:00] VITALS: BP 156/90
--- NOTE | 2020-03-17 20:00 | NUR ---
TELE/RN OPENING NOTES RECEIVED PATIENT IN BED, MECHANICAL LEEANNE WITH PRESCRIBED SETTING, ON TELE ST 103, PATIENT CAN OPEN EYES BUT REQUIRE EXTENSIVE NELSON, WITH KNOX DRAINING YELLOW URINE,REPOSITIONING FOR TURNING. HAS ARELIS MIDLINE, IV FLUIDS INFUSING AT 100 ML/HR, TO MONITOR FOR ANY CHANGES. BED LOCKED, CALL LIGTHS WITHIN REACH, RT AT BEDSIDE, TO MONITOR FOR ANY CHANGES,
--- NOTE | 2020-03-17 21:20 | NUR ---
MD RODRIGUEZ WAS MADE AWARE REGARDING BLOOD CULTURE POSITIVE RESULT WITH GRAM NEGATIVE RODS AND ON IV ANTIBIOTIC MERREM IGM WITH NNO.
[2020-03-17] MEDS: TAMSULOSIN 0.4 MG CAP.SR.24H GT SCH (21:28)
--- NOTE | 2020-03-17 21:37 | NUR ---
BS CHECK AT 131. ON D5NS IVF WITH RATE OF 100/HR.
[2020-03-17] MEDS: LATANOPROST EYE DROP 0.005% 2.5 ML BOTTLE EACHEYE SCH (21:46)
[2020-03-17 23:25] VITALS: BP 156/90
[2020-03-18] VITALS: BP 141/67
[2020-03-18] MEDS: IPRATROPIUM BROMIDE 14 GM INHALER (or 12.9 GM) IH SCH ×4 (02:28→19:48)
[2020-03-18] MEDS: ALBUTEROL SULFATE 8 GM HFA.AER.AD IH SCH ×4 (02:28→19:49)
[2020-03-18] MEDS: MEROPENEM 1 G in IV NS 0.9% 100 ML IV SCH (02:43)
[2020-03-18 04:00] VITALS: BP 146/75
[2020-03-18] MEDS: METOCLOPRAMIDE HCL 10 MG/10 ML UDC GT SCH ×3 (04:00→21:29)
[2020-03-18] MEDS: BLOOD SUGAR DIAGNOSTIC 1 EACH STRIP IN SCH ×3 (04:05→21:29)
[2020-03-18] MEDS: IV D5/ 0.9% NACL 1,000 ML IV PRN (05:10)
[2020-03-18] MEDS: LEVOTHYROXINE SODIUM 50 MCG TABLET GT SCH (05:10)
[2020-03-18] MEDS ORDERED: AMIKACIN 400 MG in IV D5W 100 ML IV SCH (06:00)
--- NOTE | 2020-03-18 06:51 | NUR ---
315-1 TELE/RN NOTES PATIENT ON TELE MONITORED AFIB AT 106, ON MECHANICAL VENT WITH PRESCRIBED SETTING, SUCTIONED NEEDED, KEPT SKIN INTACT AND DRY, REPOSITIONED FOR COMFORT. IV FLUID RUNNING ON RIGHT UPPER MIDLINE. BED LOCLED, GTUBE FLUSHED AND PATENT AND CLAMPED, TO FOLLOW UP AND ENDORSE TO AM RN FOR LOU.
[2020-03-18 06:54] LABS: BASOPHILS % (AUTO) 0.2 % (0.0-2.0); EOSINOPHILS % (AUTO) 6.2 % (0.0-6.0); HEMATOCRIT 31 % (39-51); HEMOGLOBIN 9.9 g/dL (13.5-17.5); LYMPHOCYTES # (AUTO) 0.6 /CMM (0.8-4.8); LYMPHOCYTES % (AUTO) 8.3 % (20.0-44.0); MEAN CORPUSCULAR HGB CONC 32 g/dl (31.0-36.0); MEAN CORPUSCULAR VOLUME 90 fL (80-96); MONOCYTES # (AUTO) 0.7 /CMM (0.1-1.30); MONOCYTES % (AUTO) 9.1 % (2.0-12.0); NEUTROPHILS % (AUTO) 76.2 % (43.0-81.0); PLATELET COUNT (AUTO) 117 /CMM (150-450); RED BLOOD CELL COUNT(AUTO) 3.46 MIL/uL (4.5-6.0); WHITE BLOOD COUNT (AUTO) 7.8 K/uL (4.3-11.0)
[2020-03-18 07:25] LABS: ALANINE AMINOTRANSFERASE 27 U/L (12-78); ALBUMIN 2.7 g/dL (3.4-5.0); ALKALINE PHOSPHATASE 60 U/L (46-116); ASPARTATE AMINOTRANSFERASE 29 U/L (15-37); BILIRUBIN,TOTAL 0.8 mg/dL (0.2-1.0); CALCIUM, SERUM 7.6 mg/dL (8.5-10.1); CARBON DIOXIDE 21 mmol/L (21-32); CHLORIDE 108 mmol/L (98-107); CREATININE 1.8 mg/dL (0.6-1.3); GLUCOSE 122 mg/dL (74-106); MAGNESIUM 1.7 mg/dL (1.8-2.4); PHOSPHORUS 2.4 mg/dL (2.5-4.9); POTASSIUM 3.4 mmol/L (3.5-5.1); SODIUM SERUM 140 mmol/L (136-145); TOTAL PROTEIN, SERUM 6.7 g/dL (6.4-8.2); UREA NITROGEN, BLOOD 29 mg/dL (7-18)
--- NOTE | 2020-03-18 07:25 | NUR ---
ms rn received patient awake, non verbal, vent dependent patient, not in any form of distress, respirations even and unlabored,no sob noted, will monitor patient.
[2020-03-18 08:00] VITALS: BP 135/74
[2020-03-18 08:13] LABS: BAND % (MANUAL) 1 % (0.0-5.0); EOSINOPHILS % (MANUAL) 7 % (0-4); LYMPHOCYTES % (MANUAL) 5 % (16-48); MONOCYTES % (MANUAL) 9 % (0-11.0); NEUTROPHILS % (MANUAL) 78 (42-76)
--- NOTE | 2020-03-18 10:00 | NUR ---
ms rn due meds given via g tubes, tolerated well ,all needs attended
[2020-03-18] MEDS ORDERED: POTASSIUM CHLORIDE 20 MEQ POWDER PACKET PO ONE ×2 (10:30→11:00)
[2020-03-18] MEDS: LEVETIRACETAM SOL (5 ML) 100 MG/ML UDC GT SCH ×2 (10:39→21:29)
[2020-03-18] MEDS: PANTOPRAZOLE 40 MG/PACK PACK GT SCH (10:40)
[2020-03-18] MEDS: APIXABAN 2.5 MG TABLET GT SCH ×2 (10:54→18:16)
[2020-03-18] MEDS ORDERED: POTASSIUM CHLORIDE 20 MEQ TAB.PRT.SR PO ONE (11:00)
[2020-03-18] MEDS ORDERED: Magnesium 1GM/D5W 100ML PREMIX 100 ML IV SCH (11:30)
[2020-03-18 12:00] VITALS: BP 136/80
[2020-03-18] MEDS ORDERED: NEUTRA PHOS 1 POWD.PACKET NG ONE (14:00)
[2020-03-18] MEDS: INSULIN ASPART/LISPRO 100 UNIT/ML CARTRIDGE SQ PRN (14:10)
[2020-03-18] MEDS ORDERED: PIPERACILLIN /TAZOBACTAM 3.375 G in IV D5W 50 ML IV ONE ×2 (15:30→18:00)
[2020-03-18 16:00] VITALS: BP 137/82
[2020-03-18] MEDS: SIROLIMUS 1 MG GT SCH (16:17)
--- NOTE | 2020-03-18 18:00 | NUR ---
ms rn bs - 154, no coverage given, patient npo at this time.
[2020-03-18 20:00] VITALS: BP 143/71
[2020-03-18] MEDS: TAMSULOSIN 0.4 MG CAP.SR.24H GT SCH (21:29)
[2020-03-18] MEDS: LATANOPROST EYE DROP 0.005% 2.5 ML BOTTLE EACHEYE SCH (21:41)
[2020-03-18] MEDS ORDERED: PIPERACILLIN /TAZOBACTAM 3.375 G in IV D5W 100 ML IV SCH (22:00)
--- NOTE | 2020-03-18 23:13 | NUR ---
MS/ANNI NOTES PATIENT EYE DROPS XALATAN ADMINISTERED ONE DROP IN EACH EYE. Addendum: 03/19/20 at 0217 by SUMA SALAZAR RN PLS DISREGARD FOR ANOTHER PATIENT.
[2020-03-19] VITALS (7 sets, daily range): BP systolic 132–166; BP diastolic 70–91
[2020-03-19] MEDS: PIPERACILLIN /TAZOBACTAM 3.375 G in IV D5W 100 ML IV SCH ×4 (00:21→23:49)
[2020-03-19] MEDS: IPRATROPIUM BROMIDE 14 GM INHALER (or 12.9 GM) IH SCH ×4 (02:01→20:04)
[2020-03-19] MEDS: ALBUTEROL SULFATE 8 GM HFA.AER.AD IH SCH ×4 (02:02→20:04)
[2020-03-19] MEDS: Z GUARD REMEDY 2 OZ OINT TP PRN (03:14)
[2020-03-19] MEDS: HYDROCODONE/APAP 5/325MG 1 EACH TABLET GT PRN ×2 (03:46→16:17)
[2020-03-19] MEDS: BLOOD SUGAR DIAGNOSTIC 1 EACH STRIP IN SCH ×3 (04:15→21:17)
[2020-03-19] MEDS: METOCLOPRAMIDE HCL 10 MG/10 ML UDC GT SCH ×3 (04:15→21:09)
[2020-03-19] MEDS: LEVOTHYROXINE SODIUM 50 MCG TABLET GT SCH (05:04)
--- NOTE | 2020-03-19 06:26 | NUR ---
315-1 TELE/RN NOTES PATIENT OPENS EYES, NON VERBAL, ATTENDED TO ALL NEEDS. ON MECHANICAL VENT WITH PRESCRIBED SETTING, SUCTION NEEDED, IV FLUID WITH D5 NS AT 100 ML/HR, ON ARELIS MIDLINE. WITH GTUBE PATENT, FUSHED. KNOX CATHETER DRAINING YELLOW COLORED URINE. ON CONTINOUS PILSE OXIMETER, MONITORED, REPORT FOR ANY CHANGES. BED LOCKED, CALL LIGHTS WITHIN REACH. WILL ENDORSE TO AM RN FOR LOU.
[2020-03-19 06:34] LABS: BASOPHILS # (AUTO) 0.2 /CMM (0.0-0.2); BASOPHILS % (AUTO) 2.2 % (0.0-2.0); EOSINOPHILS % (AUTO) 4.5 % (0.0-6.0); HEMATOCRIT 30 % (39-51); HEMOGLOBIN 9.6 g/dL (13.5-17.5); LYMPHOCYTES # (AUTO) 1.7 /CMM (0.8-4.8); LYMPHOCYTES % (AUTO) 19.3 % (20.0-44.0); MEAN CORPUSCULAR HGB CONC 32 g/dl (31.0-36.0); MEAN CORPUSCULAR VOLUME 90 fL (80-96); MONOCYTES # (AUTO) 0.2 /CMM (0.1-1.30); MONOCYTES % (AUTO) 2.7 % (2.0-12.0); NEUTROPHILS # (AUTO) 6.2 /CMM (1.8-8.9); NEUTROPHILS % (AUTO) 71.3 % (43.0-81.0); PLATELET COUNT (AUTO) 115 /CMM (150-450); RED BLOOD CELL COUNT(AUTO) 3.31 MIL/uL (4.5-6.0); WHITE BLOOD COUNT (AUTO) 8.7 K/uL (4.3-11.0)
[2020-03-19 06:40] LABS: CALCIUM, SERUM 8.1 mg/dL (8.5-10.1); CARBON DIOXIDE 21 mmol/L (21-32); CHLORIDE 110 mmol/L (98-107); CREATININE 1.6 mg/dL (0.6-1.3); GLUCOSE 141 mg/dL (74-106); POTASSIUM 3.6 mmol/L (3.5-5.1); SODIUM SERUM 142 mmol/L (136-145); UREA NITROGEN, BLOOD 24 mg/dL (7-18)
[2020-03-19 06:47] LABS: MAGNESIUM 1.7 mg/dL (1.8-2.4)
[2020-03-19 08:08] LABS: BAND % (MANUAL) 1 % (0.0-5.0); EOSINOPHILS % (MANUAL) 5 % (0-4); LYMPHOCYTES % (MANUAL) 11 % (16-48); MONOCYTES % (MANUAL) 5 % (0-11.0); NEUTROPHILS % (MANUAL) 78 (42-76)
[2020-03-19] MEDS: PANTOPRAZOLE 40 MG/PACK PACK GT SCH (08:15)
[2020-03-19] MEDS: LEVETIRACETAM SOL (5 ML) 100 MG/ML UDC GT SCH ×2 (08:18→21:09)
[2020-03-19] MEDS: SIROLIMUS 1 MG GT SCH (08:19)
[2020-03-19] MEDS: APIXABAN 2.5 MG TABLET GT SCH ×2 (08:23→16:15)
[2020-03-19] MEDS: Magnesium 1GM/D5W 100ML PREMIX 100 ML IV SCH ×2 (08:25→09:47)
--- NOTE | 2020-03-19 09:11 | NUR ---
SLEEVER NOTES RECEIVED ZOSYN FROM PHARMACY, ADMINISTERED.
[2020-03-19] MEDS: IV D5/ 0.9% NACL 1,000 ML IV PRN (09:59)
--- NOTE | 2020-03-19 19:00 | NUR ---
SBA BUSINESS DEVELOPMENT OFFICER CLOSING NOTES PATIENT IS LAYING IN BED. PATIENT IS NON VERBAL BUT OPENS HIS EYES. PATIENT ON MECHANICAL VENT ON PROVIDER PRESCRIBED SETTINGS. GTUBE AND KNOX CATHETER ARE PATENT. PATIENT IS ON CONTINUOUS PULSE OXIMETER READING. MONITOR PATIENT FOR ANY CHANGES IN CONDITION. BED ALARM IS ON, WHEELS ARE LOCKED, AND CALL LIGHT IS WITHIN REACH. ENDORSED PATIENTS CONDITION TO NIGHT NURSE.
--- NOTE | 2020-03-19 19:20 | NUR ---
CRANBERRY GROWER NOTES PATIENT RESTING IN BED, NO S/S OF RESPIRATORY DISTRESS, ON MECHANICAL VENT DEONDRE SETTINGS WELL WITHOUT COMPLICATIONS. PATIENT WITH NO S/S OF ANY DISCOMFORT AT THIS TIME. ARELIS MIDLINE INTACT AND PATENT DEONDRE IVF ORDERED. GT INTACT AND CLAMPED. KNOX CATH INTACT AND DRAINING YELLOW COLORED URINE VIA BEDSIDE. BED ON LOWEST LOCKED POSITION, CALL LIGHT WITHIN REACH. IN NO APPARENT DISTRESS.
[2020-03-19] MEDS ORDERED: GLUCERNA 1.2 1,000 ML BOTTLE GT PRN ×2 (19:30→20:00)
--- NOTE | 2020-03-19 19:31 | NUR ---
WOOD CUT ENGRAVER OPENING NOTES PATIENT RECEIVED RESTING IN BED, OBTUNDED, ABLE TO OPEN EYES. TOLERATING VENT SETTINGS WELL WITH BREATHING CRISTHIAN AND UNLABORED, NO SOB NOTED. NO SIGNS OF ACUTE DISTRESS. NO COMPLAINTS OF PAIN OR DISCOMFORT- NO FACIAL GRIMACING NOTED. KNOX NOTED AND IN PLACE. GTUBE NOTED AND IN PLACE- NOT RUNNING FEEDING AT THE MOMENT. TELE MONITOR READING SR 87. SAFETY PRECAUTIONS IN PLACE WITH BED IN LOWEST POSITION, CALL LIGHT WITHIN REACH, BREAKS ON, SIDE RAILS UP. WILL CONTINUE TO MONITOR THROUGHOUT THE NIGHT.
[2020-03-19] MEDS: TAMSULOSIN 0.4 MG CAP.SR.24H GT SCH (21:09)
[2020-03-19] MEDS: LATANOPROST EYE DROP 0.005% 2.5 ML BOTTLE EACHEYE SCH (21:18)
--- NOTE | 2020-03-19 21:20 | NUR ---
MS RN NOTES NO INSULIN COVERAGE OF FSBS 138. PATIENT NOT RECEIVING GT FEEDING.
--- NOTE | 2020-03-19 21:40 | NUR ---
CENTER RECEPTIONIST NOTES CLARIFIED WITH MD THERESE BAEZA ABOUT GTUBE FEEDING ORDER OF GLUCERNA 1.2 FEEDING WITH POSITIVE RESULTS OF HIDA SCAN. CONTINUE GTUBE FEEDING PER .
--- NOTE | 2020-03-19 21:49 | NUR ---
TOWER CLIMBER NOTES GTUBE FEEDING INITIATED. STARTING WITH 20ML/ HR. WILL MONITOR HOW PT TOLERATED FEEDING.
[2020-03-20] VITALS (8 sets, daily range): BP systolic 96–187; BP diastolic 70–118
--- NOTE | 2020-03-20 01:00 | NUR ---
DOCTOR OF NURSING PRACTICE NOTES GT FEEDING INCREASED TO 30 ML, <5 ML OF RESIDUAL. TOLERATING WELL.
[2020-03-20] MEDS: IPRATROPIUM BROMIDE 14 GM INHALER (or 12.9 GM) IH SCH ×4 (01:30→19:45)
[2020-03-20] MEDS: ALBUTEROL SULFATE 8 GM HFA.AER.AD IH SCH ×4 (01:30→19:45)
--- NOTE | 2020-03-20 04:00 | NUR ---
PICKING TABLE WORKER NOTES NOTIFIED BY LAB ABOUT BLOOD CULTURE PRELIMINARY RESULTS OF GRAM NEGATIVE RODS. MD TRIPLETT NOTIFIED. NO NEW ORDERS. WILL CONTINUE TO MONITOR.
[2020-03-20] MEDS: METOCLOPRAMIDE HCL 10 MG/10 ML UDC GT SCH ×3 (04:38→20:30)
[2020-03-20] MEDS: BLOOD SUGAR DIAGNOSTIC 1 EACH STRIP IN SCH ×3 (04:59→22:03)
[2020-03-20] MEDS: INSULIN ASPART/LISPRO 100 UNIT/ML CARTRIDGE SQ PRN ×3 (05:02→22:06)
[2020-03-20] MEDS: LEVOTHYROXINE SODIUM 50 MCG TABLET GT SCH (06:06)
--- NOTE | 2020-03-20 06:43 | NUR ---
MANAGER LANDSCAPE CLOSING NOTES PATIENT RESTING IN BED, OBTUNDED, ABLE TO OPEN EYES. TOLERATING VENT SETTINGS WELL WITH BREATHING CRISTHIAN AND UNLABORED, NO SOB NOTED. NO SIGNS OF ACUTE DISTRESS. NO COMPLAINTS OF PAIN OR DISCOMFORT- NO FACIAL GRIMACING NOTED. KNOX NOTED AND IN PLACE. GTUBE NOTED AND IN PLACE RUNNING GLUCERNA @ 30 ML/HR- TOLERATING WELL. TELE MONITOR READING SR 88. SAFETY PRECAUTIONS IN PLACE WITH BED IN LOWEST POSITION, CALL LIGHT WITHIN REACH, BREAKS ON, SIDE RAILS UP. ALL NEEDS ATTENDED TO, PATIENT WAS KEPT CLEAN AND DRY. WILL ENDORSE TO ONCOMING SHIFT ABOUT LOU.
[2020-03-20 07:09] LABS: BASOPHILS % (AUTO) 0.3 % (0.0-2.0); EOSINOPHILS % (AUTO) 1.2 % (0.0-6.0); HEMATOCRIT 32 % (39-51); HEMOGLOBIN 9.8 g/dL (13.5-17.5); LYMPHOCYTES # (AUTO) 0.5 /CMM (0.8-4.8); LYMPHOCYTES % (AUTO) 3.5 % (20.0-44.0); MEAN CORPUSCULAR HGB CONC 31 g/dl (31.0-36.0); MEAN CORPUSCULAR VOLUME 91 fL (80-96); MONOCYTES # (AUTO) 0.4 /CMM (0.1-1.30); MONOCYTES % (AUTO) 3.1 % (2.0-12.0); NEUTROPHILS # (AUTO) 13.4 /CMM (1.8-8.9); NEUTROPHILS % (AUTO) 91.9 % (43.0-81.0); PLATELET COUNT (AUTO) 137 /CMM (150-450); RED BLOOD CELL COUNT(AUTO) 3.52 MIL/uL (4.5-6.0); WHITE BLOOD COUNT (AUTO) 14.6 K/uL (4.3-11.0)
[2020-03-20] MEDS: PIPERACILLIN /TAZOBACTAM 3.375 G in IV D5W 100 ML IV SCH ×2 (07:25→16:27)
[2020-03-20 07:30] LABS: CARBON DIOXIDE 22 mmol/L (21-32); CHLORIDE 107 mmol/L (98-107); CREATININE 1.5 mg/dL (0.6-1.3); GLUCOSE 188 mg/dL (74-106); MAGNESIUM 1.9 mg/dL (1.8-2.4); PHOSPHORUS 3.7 mg/dL (2.5-4.9); POTASSIUM 3.8 mmol/L (3.5-5.1); SODIUM SERUM 142 mmol/L (136-145); UREA NITROGEN, BLOOD 21 mg/dL (7-18)
[2020-03-20] MEDS: HYDROCODONE/APAP 5/325MG 1 EACH TABLET GT PRN ×2 (08:00→20:31)
[2020-03-20] MEDS: APIXABAN 2.5 MG TABLET GT SCH ×2 (08:57→16:28)
[2020-03-20] MEDS: LEVETIRACETAM SOL (5 ML) 100 MG/ML UDC GT SCH ×2 (08:57→20:30)
[2020-03-20] MEDS: SIROLIMUS 1 MG GT SCH (08:57)
[2020-03-20] MEDS: PANTOPRAZOLE 40 MG/PACK PACK GT SCH (08:57)
[2020-03-20] MEDS: IV D5/ 0.9% NACL 1,000 ML IV PRN ×2 (11:04→22:36)
[2020-03-20] MEDS ORDERED: GLUCERNA 1.2 1,000 ML BOTTLE GT PRN (15:55)
--- NOTE | 2020-03-20 19:00 | NUR ---
FORMULA ROOM WORKER CLOSING NOTES PATIENT RESTING COMFORTABLY. PATIENT IS ABLE TO OPEN HIS EYES. PATIENT IS ON VENTILATOR PER PRESCRIBED SETTING. PATIENT SHOWS NO SIGNS OF SOB AND BREATHING IS UNLABORED. PATIENT SHOWS NO SIGNS OF DISTRESS AND NO SIGNS OF PAIN. GTUBE TUBE PATENT AND PATIENT IS TOLERATING FEEDING WELL. SIDE RAILS ARE UP, BED IN LOWEST POSITION, AND CALL LIGHT IS NEAR.
[2020-03-20] MEDS: LATANOPROST EYE DROP 0.005% 2.5 ML BOTTLE EACHEYE SCH (22:00)
[2020-03-20] MEDS: TAMSULOSIN 0.4 MG CAP.SR.24H GT SCH (22:23)
--- NOTE | 2020-03-20 22:30 | NUR ---
MS/TELE/RN XALATAN EYE DROP NOT ADMINISTERED IT WAS NOT AVAILABLE.
[2020-03-21] VITALS: BP 139/76
[2020-03-21] MEDS: PIPERACILLIN /TAZOBACTAM 3.375 G in IV D5W 100 ML IV SCH ×3 (00:09→16:06)
[2020-03-21] MEDS: IPRATROPIUM BROMIDE 14 GM INHALER (or 12.9 GM) IH SCH ×3 (01:42→13:16)
[2020-03-21] MEDS: ALBUTEROL SULFATE 8 GM HFA.AER.AD IH SCH ×3 (01:42→13:16)
[2020-03-21 03:13] LABS: APPEARANCE,URINE SL CLOUDY (CLEAR); BILIRUBIN,URINE NEGATIVE (NEGATIVE); BLOOD, URINE MODERATE Ery/uL (NEGATIVE); COLOR,URINE YELLOW (YELLOW); KETONES,URINE NEGATIVE (NEGATIVE); LEUKOCYTE ESTERASE ,URINE NEGATIVE (NEGATIVE); NITRITE, URINE NEGATIVE (NEGATIVE); PROTEIN,URINE 100 mg/dl (NEGATIVE); UGLUCOSE NEGATIVE (NEGATIVE); UROBILINOGEN,URINE 0.2 EU/dL (0.2)
[2020-03-21 03:30] LABS: BACTERIA,URINE Few /HPF (None Seen); RBC,URINE 51-80 /HPF (0-2); SQUAMOUS EPITHELIAL CELL,UR Few /HPF (None Seen)
[2020-03-21 04:00] VITALS: BP 135/52
[2020-03-21] MEDS: METOCLOPRAMIDE HCL 10 MG/10 ML UDC GT SCH ×2 (04:42→13:36)
[2020-03-21] MEDS: INSULIN ASPART/LISPRO 100 UNIT/ML CARTRIDGE SQ PRN ×2 (04:54→13:38)
[2020-03-21] MEDS: BLOOD SUGAR DIAGNOSTIC 1 EACH STRIP IN SCH ×2 (04:54→13:36)
[2020-03-21] MEDS: LEVOTHYROXINE SODIUM 50 MCG TABLET GT SCH (05:46)
--- NOTE | 2020-03-21 06:17 | NUR ---
MS/TELE/RN PATIENT APPEAR SLEEPING, APPEAR COMFORTABLE, NO SIGNS OF DISTRESS NOTED, HOB ELEVATED, GTUBE FEEDING INFUSING, MECH VENT WORKING WELL, ON AND OFF SLEEP WAS NOTED THE WHOKE SHIFT, ALL NEEDS ATTENDED AT THIS TIME, WILL CONTINUE TO MONITOR
[2020-03-21 07:02] LABS: BASOPHILS % (AUTO) 0.4 % (0.0-2.0); EOSINOPHILS % (AUTO) 4.4 % (0.0-6.0); HEMATOCRIT 33 % (39-51); HEMOGLOBIN 10.2 g/dL (13.5-17.5); LYMPHOCYTES # (AUTO) 0.8 /CMM (0.8-4.8); LYMPHOCYTES % (AUTO) 8.6 % (20.0-44.0); MEAN CORPUSCULAR HGB CONC 31 g/dl (31.0-36.0); MEAN CORPUSCULAR VOLUME 94 fL (80-96); MONOCYTES # (AUTO) 0.8 /CMM (0.1-1.30); MONOCYTES % (AUTO) 8.7 % (2.0-12.0); NEUTROPHILS # (AUTO) 7.3 /CMM (1.8-8.9); NEUTROPHILS % (AUTO) 77.9 % (43.0-81.0); PLATELET COUNT (AUTO) 118 /CMM (150-450); RED BLOOD CELL COUNT(AUTO) 3.54 MIL/uL (4.5-6.0); WHITE BLOOD COUNT (AUTO) 9.4 K/uL (4.3-11.0)
[2020-03-21 07:07] LABS: CALCIUM, SERUM 8.8 mg/dL (8.5-10.1); CARBON DIOXIDE 19 mmol/L (21-32); CHLORIDE 106 mmol/L (98-107); CREATININE 1.6 mg/dL (0.6-1.3); GLUCOSE 182 mg/dL (74-106); MAGNESIUM 1.5 mg/dL (1.8-2.4); PHOSPHORUS 3.9 mg/dL (2.5-4.9); POTASSIUM 3.6 mmol/L (3.5-5.1); SODIUM SERUM 139 mmol/L (136-145); UREA NITROGEN, BLOOD 19 mg/dL (7-18)
[2020-03-21 08:00] VITALS: BP 140/96
--- NOTE | 2020-03-21 08:21 | NUR ---
TELE/RN OPENING NOTES RECEIVED PATIENT ON BED OPEN EYES AND NONVERBAL, NO SIGNS AND SYMPTOM OF DISTRESS NOTED, HOB ELEVATED, GTUBE FEEDING INFUSING WELL, MECH VENT INPLACE AT THE PRESCRIBED ORDER. SAFETY PRECAUTION IN PLACE BED IN LOWEST POSITION, SIDE RAILS UP X2. WILL CONTINUE TO MONITOR.
[2020-03-21] MEDS: LEVETIRACETAM SOL (5 ML) 100 MG/ML UDC GT SCH (08:50)
[2020-03-21] MEDS: PANTOPRAZOLE 40 MG/PACK PACK GT SCH (08:51)
[2020-03-21] MEDS: APIXABAN 2.5 MG TABLET GT SCH ×2 (08:51→16:08)
--- NOTE | 2020-03-21 10:00 | NUR ---
MAS/RN NOTES DISCONTINUE MIDLINE SEND TIP FOR CULTURE IF OK WITH MEDICAL DOCTOR PER INFECTIOUS DISEASE DR. BAEZA IS AWARE AND NO NEW ORDER.
[2020-03-21] MEDS: SIROLIMUS 1 MG GT SCH (10:02)
[2020-03-21] MEDS ORDERED: Magnesium 1GM/D5W 100ML PREMIX 100 ML IV SCH (11:45)
[2020-03-21] MEDS: IV D5/ 0.9% NACL 1,000 ML IV PRN (12:47)
--- NOTE | 2020-03-21 13:43 | NUR ---
TELE/RN NOTES BS 172 MG/DL ADMINISTERED 3 UNITS INSULIN.
[2020-03-21] MEDS: HYDROCODONE/APAP 5/325MG 1 EACH TABLET GT PRN (16:06)
[2020-03-21] MEDS ORDERED: VANC1VIA XX (16:20)
[2020-03-21] MEDS ORDERED: PIPE3.376 IV (16:20)
--- NOTE | 2020-03-21 18:36 | NUR ---
TELE/RN NOTES PATIENT IS ON BED, OPEN EYES AND NONVERBAL, NO SIGNS AND SYMPTOM OF DISTRESS NOTED, HOB ELEVATED, GTUBE FEEDING INFUSING WELL, MECH VENT IN PLACE AT THE PRESCRIBED ORDER. SEEN AND EXAMINED BY MD WITH ORDERS MADE AND CARRIED OUT. ALL DUE MEDICATION WAS GIVEN CHECKED AND TURN PATIENT EVERY 2 HOURS. PATIENT TRANSFERRED TO [facility]. VITAL SIGN TAKEN AND RECORDED BP 124/99 HR 94 TEMP 98.6. GIVE REPORT TO JIL FOR LOU.
[2020-03-22] MEDS ORDERED: ALBU18HF2 IH ×2 (07:32)
[2020-03-22] MEDS ORDERED: IPRA12.9 IH (07:32)
[2020-03-22] MEDS ORDERED: MAGN400O6 GT (07:32)
[2020-03-22] MEDS ORDERED: MAG30ORA GT (07:32)
[2020-03-22] MEDS ORDERED: PANT40SU2 GT (07:32)
== END 2020-03-21 18:23 | DRG 280 ==
LOC: ER 23:58 → ICU 03-13 02:39 → TELE 03-16 18:25
PROVIDERS: ADMIT Family Medicine; ATTEND Nurse Practitioner Acute Care
PROC: 5A1955Z Respiratory Ventilation, Greater than 96 Consecutive Hours (ICD-10-PCS; principal; 2020-03-13)
DX: T80.211A Bloodstream infection due to central venous catheter, initial encounter (principal); A41.9 Sepsis, unspecified organism; I21.A1 Myocardial infarction type 2; J15.9 Unspecified bacterial pneumonia; R65.21 Severe sepsis with septic shock; N17.0 Acute kidney failure with tubular necrosis; K72.00 Acute and subacute hepatic failure without coma; G92 Toxic encephalopathy; E87.2 Acidosis; N39.0 Urinary tract infection, site not specified; Z99.11 Dependence on respirator [ventilator] status; I50.32 Chronic diastolic (congestive) heart failure; I48.20 Chronic atrial fibrillation, unspecified; E44.0 Moderate protein-calorie malnutrition; E87.1 Hypo-osmolality and hyponatremia; J96.10 Chronic respiratory failure, unspecified whether with hypoxia or hypercapnia; K80.00 Calculus of gallbladder with acute cholecystitis without obstruction; T86.12 Kidney transplant failure; J44.0 Chronic obstructive pulmonary disease with (acute) lower respiratory infection; Y83.0 Surgical operation with transplant of whole organ as the cause of abnormal reaction of the patient, or of later complication, without mention of misadventure at the time of the procedure; B96.5 Pseudomonas (aeruginosa) (mallei) (pseudomallei) as the cause of diseases classified elsewhere; B96.4 Proteus (mirabilis) (morganii) as the cause of diseases classified elsewhere; D63.8 Anemia in other chronic diseases classified elsewhere; D69.59 Other secondary thrombocytopenia; Z74.01 Bed confinement status; Z79.01 Long term (current) use of anticoagulants; Z86.73 Personal history of transient ischemic attack (TIA), and cerebral infarction without residual deficits; Z93.0 Tracheostomy status; Z93.1 Gastrostomy status; Z87.891 Personal history of nicotine dependence; Z87.01 Personal history of pneumonia (recurrent); I95.9 Hypotension, unspecified; E88.09 Other disorders of plasma-protein metabolism, not elsewhere classified; Z79.899 Other long term (current) drug therapy; R13.10 Dysphagia, unspecified; E83.39 Other disorders of phosphorus metabolism; E83.42 Hypomagnesemia; E03.9 Hypothyroidism, unspecified; Z87.440 Personal history of urinary (tract) infections; Z90.5 Acquired absence of kidney; E11.65 Type 2 diabetes mellitus with hyperglycemia; G40.909 Epilepsy, unspecified, not intractable, without status epilepticus; E11.22 Type 2 diabetes mellitus with diabetic chronic kidney disease; N40.0 Benign prostatic hyperplasia without lower urinary tract symptoms; E83.9 Disorder of mineral metabolism, unspecified; N40.1 Benign prostatic hyperplasia with lower urinary tract symptoms; Z79.4 Long term (current) use of insulin; L98.8 Other specified disorders of the skin and subcutaneous tissue; Y83.8 Other surgical procedures as the cause of abnormal reaction of the patient, or of later complication, without mention of misadventure at the time of the procedure; Y92.129 Unspecified place in nursing home as the place of occurrence of the external cause
CPT/HCPCS: 31720; 36415; 71045-TC; 74150-TC; 76700-TC; 78226; 80048-TC; 80053-TC; 80061-TC; 80076-TC; 80150; 80162-TC; 80202-TC; 81000-TC; 82272-TC; 82533; 82550-TC; 82570-TC; 82728-TC; 82962-TC; 83540-TC; 83605-TC; 83735-TC; 83880; 83935-TC; 83970; 84100-TC; 84155; 84155-TC; 84165; 84300-TC; 84439-TC; 84443-TC; 84484-TC; 84550-TC; 85025-TC; 85730-TC; 87040-TC; 87081-TC; 87086-TC; 87186-TC; 93307-TC; 94002-TC; 94003-TC; 94640; 94760-TC; 94762-TC; 99082-TC; A4216; A4623; A6403; A9537; G0378; J0278; J0692; J1720; J1815; J1953; J1956; J2185; J2543; J3370; J3475; J3490; J7030; J7040; J7042; J7050; J7060; J7070; J8597; Q0162; U0003-CS

== ENCOUNTER 2021-10-17 00:01 | Inpatient (IN) | payer MEDICARE, OTHER ==
[~2021-10-17] VITALS: Ht 165.1 cm; Wt 66.7 kg
[~2021-10-17 00:01] MED LIST changes: +ALLA266C2 TP; -BALS60OI TP; -DIGO125T GT; -FURO-145 GT; -HYDR-4384 GT; +IPRA12.9 IH; -IPRA3AMP23 IH; -LANS30CA56 GT; +LATA2.5D15 EACHEYE; -LATA2.5D7 EACHEYE; +MAG30ORA GT; +MAGN400O6 GT; -METO5SOL2 GT; +METO5SOL2 IV; +NUT.237L30 GT; +PANT40SU2 GT; +PIPE3.376 IV; +VANC1VIA34 XX
[2021-10-19] MEDS ORDERED: INSULIN ASPART/LISPRO 100 UNIT/ML CARTRIDGE SQ PRN (08:41)
[2021-10-19] MEDS ORDERED: APIXABAN 2.5 MG TABLET GT SCH (08:41)
[2021-10-19] MEDS ORDERED: LEVETIRACETAM 500 MG GT SCH (08:41)
[2021-10-19] MEDS ORDERED: ACETAMINOPHEN 650 MG/20 ML UDC- SA PATIENTS-FEVER ONLY GT PRN ×2 (08:41→09:00)
[2021-10-19] MEDS ORDERED: BACLOFEN 5 MG GT SCH (08:41)
[2021-10-19] MEDS ORDERED: JANUVIA 25 MG GT SCH (08:41)
[2021-10-19] MEDS ORDERED: LEVOTHYROXINE SODIUM 75 MCG TABLET GT SCH (08:41)
[2021-10-19] MEDS ORDERED: GLUCERNA 1.2 1,000 ML BOTTLE GT PRN (08:41)
[2021-10-19] MEDS ORDERED: SIROLIMUS 1 MG GT SCH (08:41)
[2021-10-19] MEDS ORDERED: MULTIVIT W/MINERALS 1 TAB TABLET GT SCH (08:41)
[2021-10-19] MEDS ORDERED: ACETAMINOPHEN 650 MG/20 ML UDC- SA PATIENTS-PAIN ONLY GT PRN (08:41)
[2021-10-19] MEDS ORDERED: LATANOPROST EYE DROP 0.005% 2.5 ML BOTTLE EACHEYE SCH (08:41)
[2021-10-19] MEDS ORDERED: INSULIN GLARGINE, 100 UNIT/ML CARTRIDGE SQ SCH (08:41)
[2021-10-19] MEDS ORDERED: TAMSULOSIN 0.4 MG CAP.SR.24H GT SCH (08:41)
[2021-10-19] MEDS ORDERED: ONDANSETRON 4 MG TAB.RAPDIS GT PRN (08:41)
[2021-10-19] MEDS ORDERED: HYDROGEN PEROXIDE 480 ML BOTTLE TP SCH (08:41)
[2021-10-19] MEDS ORDERED: BISACODYL SUPP (10 MG) 10 MG/SUPP.RECT SUPP.RECT RC PRN (08:41)
[2021-10-19] MEDS ORDERED: DEXTROSE 50%-WATER 50 ML DISP.SYRIN IV PRN (08:41)
[2021-10-19] MEDS ORDERED: FERROUS SULFATE - FOR SA ONLY 330 MG/7.5 ML UDC GT SCH (08:41)
[2021-10-19] MEDS ORDERED: DIGOXIN 0.125 MG TABLET GT SCH (08:41)
[2021-10-19] MEDS ORDERED: CHOLESTYRAMINE/ASPARTAME 4 G/PKT PACKET GT SCH (08:41)
[2021-10-19] MEDS ORDERED: FAMOTIDINE (20 MG) 20 MG TABLET GT SCH (08:41)
[2021-10-19] MEDS ORDERED: POLYETHYLENE GLYCOL 3350 17 GM POWD.PACK GT PRN (08:41)
--- NOTE | 2021-10-19 08:55 | NUR ---
Please see resident's previous account [phone] for all assessments and nurses notes.
[2021-10-19] MEDS: CHOLESTYRAMINE/ASPARTAME 4 G/PKT PACKET GT SCH (09:00)
[2021-10-19] MEDS: HYDROGEN PEROXIDE 480 ML BOTTLE TP SCH ×2 (09:00→21:07)
[2021-10-19] MEDS: SIROLIMUS 1 MG GT SCH (09:00)
[2021-10-19] MEDS: LEVETIRACETAM 500 MG GT SCH ×2 (09:00→21:18)
[2021-10-19] MEDS: APIXABAN 2.5 MG TABLET GT SCH ×2 (09:00→17:04)
[2021-10-19] MEDS: MULTIVIT W/MINERALS 1 TAB TABLET GT SCH (09:00)
[2021-10-19] MEDS: Z GUARD REMEDY 4 OZ OINT TP SCH ×2 (09:00→21:18)
[2021-10-19] MEDS: FERROUS SULFATE - FOR SA ONLY 330 MG/7.5 ML UDC GT SCH ×3 (09:00→17:04)
[2021-10-19] MEDS: JANUVIA 25 MG GT SCH (09:00)
[2021-10-19] MEDS: FAMOTIDINE (20 MG) 20 MG TABLET GT SCH (09:00)
[2021-10-19] MEDS: BACLOFEN 5 MG GT SCH ×2 (09:00→17:04)
[2021-10-19] MEDS: DIGOXIN 0.125 MG TABLET GT SCH (13:00)
[2021-10-19] MEDS: BLOOD SUGAR DIAGNOSTIC 1 EACH STRIP IN SCH ×2 (13:00→21:18)
[2021-10-19] MEDS: IPRATROPIUM NEB FS 0.5 MG/2.5 ML AMPUL.NEB NEB SCH ×2 (13:30→20:16)
--- NOTE | 2021-10-19 13:55 | NUR ---
Virtual rounds done by LENKA Taylor, no new order given.
[2021-10-19 14:10] VITALS: BP 153/73
[2021-10-19 14:11] VITALS: BP 129/72
[2021-10-19] MEDS: INSULIN ASPART/LISPRO 100 UNIT/ML CARTRIDGE SQ PRN (15:51)
[2021-10-19 15:55] VITALS: BP 153/73
[2021-10-19 20:14] VITALS: BP 142/69
[2021-10-19] MEDS: ALBUTEROL FS 2.5 MG/0.5 ML VIAL.NEB NEB SCH (20:16)
[2021-10-19] MEDS: LATANOPROST EYE DROP 0.005% 2.5 ML BOTTLE EACHEYE SCH (21:19)
[2021-10-19] MEDS: INSULIN GLARGINE, 100 UNIT/ML CARTRIDGE SQ SCH (21:19)
[2021-10-19] MEDS: TAMSULOSIN 0.4 MG CAP.SR.24H GT SCH (21:19)
[2021-10-19 22:18] VITALS: BP 142/69
[2021-10-20] MEDS: ALBUTEROL FS 2.5 MG/0.5 ML VIAL.NEB NEB SCH ×4 (01:36→19:55)
[2021-10-20] MEDS: IPRATROPIUM NEB FS 0.5 MG/2.5 ML AMPUL.NEB NEB SCH ×4 (01:36→19:55)
[2021-10-20] MEDS: BLOOD SUGAR DIAGNOSTIC 1 EACH STRIP IN SCH ×3 (05:00→21:16)
[2021-10-20] MEDS: LEVOTHYROXINE SODIUM 75 MCG TABLET GT SCH (06:00)
[2021-10-20] MEDS: INSULIN ASPART/LISPRO 100 UNIT/ML CARTRIDGE SQ PRN ×2 (06:01→13:22)
[2021-10-20] MEDS: HYDROGEN PEROXIDE 480 ML BOTTLE TP SCH ×2 (07:56→21:40)
[2021-10-20 08:25] LABS: BASOPHILS % (AUTO) 0.4 % (0.0-2.0); EOSINOPHILS % (AUTO) 2.9 % (0.0-6.0); HEMATOCRIT 28 % (39-51); HEMOGLOBIN 9.2 g/dL (13.5-17.5); LYMPHOCYTES # (AUTO) 1.1 K/uL (0.8-4.8); LYMPHOCYTES % (AUTO) 16.4 % (20.0-44.0); MEAN CORPUSCULAR HGB CONC 33 g/dl (31.0-36.0); MEAN CORPUSCULAR VOLUME 98 fL (80-96); MONOCYTES # (AUTO) 0.5 K/uL (0.1-1.30); MONOCYTES % (AUTO) 7.1 % (2.0-12.0); NEUTROPHILS # (AUTO) 4.9 K/uL (1.8-8.9); NEUTROPHILS % (AUTO) 73.2 % (43.0-81.0); PLATELET COUNT (AUTO) 221 K/uL (150-450); RED BLOOD CELL COUNT(AUTO) 2.89 MIL/uL (4.5-6.0); WHITE BLOOD COUNT (AUTO) 6.7 K/uL (4.3-11.0)
[2021-10-20 08:55] LABS: CALCIUM, SERUM 8.9 mg/dL (8.5-10.1); CARBON DIOXIDE 29 mmol/L (21-32); CHLORIDE 98 mmol/L (98-107); CREATININE 1.4 mg/dL (0.6-1.3); GLUCOSE 106 mg/dL (74-106); MAGNESIUM 2.4 mg/dL (1.8-2.4); PHOSPHORUS 4.4 mg/dL (2.5-4.9); POTASSIUM 4.9 mmol/L (3.5-5.1); SODIUM SERUM 136 mmol/L (136-145); UREA NITROGEN, BLOOD 30 mg/dL (7-18)
[2021-10-20] MEDS: APIXABAN 2.5 MG TABLET GT SCH ×2 (09:00→17:56)
[2021-10-20] MEDS: CHOLESTYRAMINE/ASPARTAME 4 G/PKT PACKET GT SCH (09:00)
[2021-10-20] MEDS: Z GUARD REMEDY 4 OZ OINT TP SCH ×2 (09:00→21:16)
[2021-10-20] MEDS: LEVETIRACETAM 500 MG GT SCH ×2 (09:00→21:16)
[2021-10-20] MEDS: FAMOTIDINE (20 MG) 20 MG TABLET GT SCH (09:00)
[2021-10-20] MEDS: JANUVIA 25 MG GT SCH (09:00)
[2021-10-20] MEDS: MULTIVIT W/MINERALS 1 TAB TABLET GT SCH (09:00)
[2021-10-20] MEDS: FERROUS SULFATE - FOR SA ONLY 330 MG/7.5 ML UDC GT SCH ×3 (09:00→17:56)
[2021-10-20] MEDS: SIROLIMUS 1 MG GT SCH (09:00)
[2021-10-20] MEDS: BACLOFEN 5 MG GT SCH ×2 (09:00→17:56)
--- NOTE | 2021-10-20 09:40 | NUR ---
Virtual rounds done by Dr. Alicea, no new order given.
[2021-10-20 12:14] VITALS: BP 126/76
[2021-10-20] MEDS: DIGOXIN 0.125 MG TABLET GT SCH (13:21)
--- NOTE | 2021-10-20 15:49 | NUR ---
Family Invite to IDT: DELMI emailed the pt.'s son, Trevon inviting them to participate in 10/23/2021 IDT Meeting. DELMI will follow up accordingly.
[2021-10-20 19:02] VITALS: BP 129/74
[2021-10-20 20:06] VITALS: BP 122/87
[2021-10-20] MEDS: LATANOPROST EYE DROP 0.005% 2.5 ML BOTTLE EACHEYE SCH (21:16)
[2021-10-20] MEDS: TAMSULOSIN 0.4 MG CAP.SR.24H GT SCH (21:16)
[2021-10-20] MEDS: INSULIN GLARGINE, 100 UNIT/ML CARTRIDGE SQ SCH (21:17)
[2021-10-20 22:17] VITALS: BP 122/87
[2021-10-21] MEDS: ALBUTEROL FS 2.5 MG/0.5 ML VIAL.NEB NEB SCH ×4 (01:34→20:15)
[2021-10-21] MEDS: IPRATROPIUM NEB FS 0.5 MG/2.5 ML AMPUL.NEB NEB SCH ×4 (01:34→20:15)
[2021-10-21 01:46] VITALS: BP 138/85
[2021-10-21] MEDS: LEVOTHYROXINE SODIUM 75 MCG TABLET GT SCH (05:34)
[2021-10-21] MEDS: BLOOD SUGAR DIAGNOSTIC 1 EACH STRIP IN SCH ×3 (05:34→21:22)
[2021-10-21 08:02] VITALS: BP 141/53
[2021-10-21] MEDS: BACLOFEN 5 MG GT SCH ×2 (08:50→16:56)
[2021-10-21] MEDS: MULTIVIT W/MINERALS 1 TAB TABLET GT SCH (08:50)
[2021-10-21] MEDS: APIXABAN 2.5 MG TABLET GT SCH ×2 (08:50→16:54)
[2021-10-21] MEDS: FERROUS SULFATE - FOR SA ONLY 330 MG/7.5 ML UDC GT SCH ×3 (08:50→16:56)
[2021-10-21] MEDS: CHOLESTYRAMINE/ASPARTAME 4 G/PKT PACKET GT SCH (08:50)
[2021-10-21] MEDS: JANUVIA 25 MG GT SCH (08:50)
[2021-10-21] MEDS: Z GUARD REMEDY 4 OZ OINT TP SCH ×2 (08:50→21:22)
[2021-10-21] MEDS: LEVETIRACETAM 500 MG GT SCH ×2 (08:50→21:22)
[2021-10-21] MEDS: SIROLIMUS 1 MG GT SCH (08:50)
[2021-10-21] MEDS: FAMOTIDINE (20 MG) 20 MG TABLET GT SCH (08:50)
[2021-10-21] MEDS: HYDROGEN PEROXIDE 480 ML BOTTLE TP SCH ×2 (09:13→20:15)
[2021-10-21 10:00] VITALS: BP 141/53
[2021-10-21 12:19] VITALS: BP 136/57
[2021-10-21] MEDS: DIGOXIN 0.125 MG TABLET GT SCH (12:48)
[2021-10-21 20:09] VITALS: BP 133/79
[2021-10-21] MEDS: TAMSULOSIN 0.4 MG CAP.SR.24H GT SCH (21:22)
[2021-10-21] MEDS: LATANOPROST EYE DROP 0.005% 2.5 ML BOTTLE EACHEYE SCH (21:22)
[2021-10-21] MEDS: INSULIN GLARGINE, 100 UNIT/ML CARTRIDGE SQ SCH (21:23)
[2021-10-21] MEDS: INSULIN ASPART/LISPRO 100 UNIT/ML CARTRIDGE SQ PRN (21:24)
[2021-10-21 23:04] VITALS: BP 133/79
[2021-10-22] MEDS: IPRATROPIUM NEB FS 0.5 MG/2.5 ML AMPUL.NEB NEB SCH ×4 (01:58→19:48)
[2021-10-22] MEDS: ALBUTEROL FS 2.5 MG/0.5 ML VIAL.NEB NEB SCH ×4 (01:58→19:48)
[2021-10-22] MEDS: LEVOTHYROXINE SODIUM 75 MCG TABLET GT SCH (05:27)
[2021-10-22] MEDS: BLOOD SUGAR DIAGNOSTIC 1 EACH STRIP IN SCH ×3 (05:27→21:01)
[2021-10-22] MEDS: GLUCERNA 1.2 1,000 ML BOTTLE GT PRN ×2 (05:28→18:50)
[2021-10-22] MEDS: INSULIN ASPART/LISPRO 100 UNIT/ML CARTRIDGE SQ PRN ×2 (05:28→21:02)
[2021-10-22 07:58] VITALS: BP 126/72
[2021-10-22] MEDS: HYDROGEN PEROXIDE 480 ML BOTTLE TP SCH ×2 (08:05→20:40)
[2021-10-22] MEDS: FERROUS SULFATE - FOR SA ONLY 330 MG/7.5 ML UDC GT SCH ×3 (09:21→17:35)
[2021-10-22] MEDS: APIXABAN 2.5 MG TABLET GT SCH ×2 (09:21→17:50)
[2021-10-22] MEDS: JANUVIA 25 MG GT SCH (09:21)
[2021-10-22] MEDS: Z GUARD REMEDY 4 OZ OINT TP SCH ×2 (09:22→20:51)
[2021-10-22] MEDS: MULTIVIT W/MINERALS 1 TAB TABLET GT SCH (09:22)
[2021-10-22] MEDS: CHOLESTYRAMINE/ASPARTAME 4 G/PKT PACKET GT SCH (09:22)
[2021-10-22] MEDS: FAMOTIDINE (20 MG) 20 MG TABLET GT SCH (09:22)
[2021-10-22] MEDS: LEVETIRACETAM 500 MG GT SCH ×2 (09:22→20:51)
[2021-10-22] MEDS: SIROLIMUS 1 MG GT SCH (09:22)
[2021-10-22] MEDS: BACLOFEN 5 MG GT SCH ×2 (09:22→17:35)
--- NOTE | 2021-10-22 10:20 | NUR ---
Virtual rounds done by LENKA Taylor, no new order given.
[2021-10-22] MEDS: DIGOXIN 0.125 MG TABLET GT SCH (12:39)
[2021-10-22 12:46] VITALS: BP 128/68
[2021-10-22 19:45] VITALS: BP 137/59
[2021-10-22] MEDS: INSULIN GLARGINE, 100 UNIT/ML CARTRIDGE SQ SCH (21:01)
[2021-10-22] MEDS: TAMSULOSIN 0.4 MG CAP.SR.24H GT SCH (21:01)
[2021-10-22] MEDS: LATANOPROST EYE DROP 0.005% 2.5 ML BOTTLE EACHEYE SCH (21:01)
[2021-10-23 00:08] VITALS: BP 156/87
[2021-10-23] MEDS: ALBUTEROL FS 2.5 MG/0.5 ML VIAL.NEB NEB SCH ×4 (01:25→19:44)
[2021-10-23] MEDS: IPRATROPIUM NEB FS 0.5 MG/2.5 ML AMPUL.NEB NEB SCH ×4 (01:25→19:44)
[2021-10-23] MEDS: LEVOTHYROXINE SODIUM 75 MCG TABLET GT SCH (05:11)
[2021-10-23] MEDS: BLOOD SUGAR DIAGNOSTIC 1 EACH STRIP IN SCH ×3 (05:30→21:06)
[2021-10-23] MEDS: INSULIN ASPART/LISPRO 100 UNIT/ML CARTRIDGE SQ PRN ×3 (05:30→21:07)
[2021-10-23 07:17] VITALS: BP 112/71
[2021-10-23] MEDS: BACLOFEN 5 MG GT SCH ×2 (08:42→17:09)
[2021-10-23] MEDS: FERROUS SULFATE - FOR SA ONLY 330 MG/7.5 ML UDC GT SCH ×3 (08:42→17:09)
[2021-10-23] MEDS: FAMOTIDINE (20 MG) 20 MG TABLET GT SCH (08:42)
[2021-10-23] MEDS: LEVETIRACETAM 500 MG GT SCH ×2 (08:42→20:52)
[2021-10-23] MEDS: CHOLESTYRAMINE/ASPARTAME 4 G/PKT PACKET GT SCH (08:42)
[2021-10-23] MEDS: APIXABAN 2.5 MG TABLET GT SCH ×2 (08:42→17:08)
[2021-10-23] MEDS: JANUVIA 25 MG GT SCH (08:42)
[2021-10-23] MEDS: MULTIVIT W/MINERALS 1 TAB TABLET GT SCH (08:42)
[2021-10-23] MEDS: SIROLIMUS 1 MG GT SCH (08:42)
[2021-10-23] MEDS: Z GUARD REMEDY 4 OZ OINT TP SCH ×2 (08:43→20:52)
[2021-10-23] MEDS: HYDROGEN PEROXIDE 480 ML BOTTLE TP SCH ×2 (08:44→21:00)
[2021-10-23 12:25] VITALS: BP 127/83
[2021-10-23] MEDS: DIGOXIN 0.125 MG TABLET GT SCH (13:14)
--- NOTE | 2021-10-23 13:48 | NUR ---
INTERDISCIPLINARY PLAN OF CARE CONFERENCE took place today. The patients responsible democrat/ Trevon Albrecht did not participate. Dr. Alicea and Interdisciplinary team discussed the plan of care in detail. Current orders as well as treatments and medications were reviewed. Pharmacy recommended TSH levels to be checked Tuesday, Dr. Alicea in agreement. Recent Covid-19 test 10/19/21 result negative for Covid.
[2021-10-23] MEDS: GLUCERNA 1.2 1,000 ML BOTTLE GT PRN (17:35)
[2021-10-23 19:40] VITALS: BP 131/79
[2021-10-23] MEDS: LATANOPROST EYE DROP 0.005% 2.5 ML BOTTLE EACHEYE SCH (21:06)
[2021-10-23] MEDS: TAMSULOSIN 0.4 MG CAP.SR.24H GT SCH (21:06)
[2021-10-23] MEDS: INSULIN GLARGINE, 100 UNIT/ML CARTRIDGE SQ SCH (21:07)
[2021-10-24] MEDS: IPRATROPIUM NEB FS 0.5 MG/2.5 ML AMPUL.NEB NEB SCH ×4 (02:07→19:48)
[2021-10-24] MEDS: ALBUTEROL FS 2.5 MG/0.5 ML VIAL.NEB NEB SCH ×4 (02:07→19:48)
[2021-10-24] MEDS: LEVOTHYROXINE SODIUM 75 MCG TABLET GT SCH (05:05)
--- NOTE | 2021-10-24 05:21 | NUR ---
Discontinue midline IV antibiotic completed.
[2021-10-24] MEDS: INSULIN ASPART/LISPRO 100 UNIT/ML CARTRIDGE SQ PRN ×3 (05:28→20:49)
[2021-10-24] MEDS: BLOOD SUGAR DIAGNOSTIC 1 EACH STRIP IN SCH ×3 (05:28→20:48)
[2021-10-24 07:32] VITALS: BP 138/77
[2021-10-24] MEDS: HYDROGEN PEROXIDE 480 ML BOTTLE TP SCH ×2 (08:16→21:07)
[2021-10-24] MEDS: FERROUS SULFATE - FOR SA ONLY 330 MG/7.5 ML UDC GT SCH ×3 (09:24→17:12)
[2021-10-24] MEDS: APIXABAN 2.5 MG TABLET GT SCH ×2 (09:25→17:12)
[2021-10-24] MEDS: LEVETIRACETAM 500 MG GT SCH ×2 (09:25→20:48)
[2021-10-24] MEDS: JANUVIA 25 MG GT SCH (09:25)
[2021-10-24] MEDS: FAMOTIDINE (20 MG) 20 MG TABLET GT SCH (09:26)
[2021-10-24] MEDS: CHOLESTYRAMINE/ASPARTAME 4 G/PKT PACKET GT SCH (09:26)
[2021-10-24] MEDS: BACLOFEN 5 MG GT SCH ×2 (09:26→17:13)
[2021-10-24] MEDS: MULTIVIT W/MINERALS 1 TAB TABLET GT SCH (09:26)
[2021-10-24] MEDS: Z GUARD REMEDY 4 OZ OINT TP SCH ×2 (09:27→20:48)
[2021-10-24] MEDS: SIROLIMUS 1 MG GT SCH (09:29)
[2021-10-24] MEDS: GLUCERNA 1.2 1,000 ML BOTTLE GT PRN ×2 (11:50→12:29)
[2021-10-24] MEDS: DIGOXIN 0.125 MG TABLET GT SCH (13:01)
[2021-10-24 13:23] VITALS: BP 132/76
[2021-10-24 20:01] VITALS: BP 115/60
[2021-10-24] MEDS: LATANOPROST EYE DROP 0.005% 2.5 ML BOTTLE EACHEYE SCH (21:09)
[2021-10-24] MEDS: TAMSULOSIN 0.4 MG CAP.SR.24H GT SCH (21:09)
[2021-10-24] MEDS: INSULIN GLARGINE, 100 UNIT/ML CARTRIDGE SQ SCH (21:10)
[2021-10-25 00:05] VITALS: BP 130/57
[2021-10-25] MEDS: IPRATROPIUM NEB FS 0.5 MG/2.5 ML AMPUL.NEB NEB SCH ×4 (02:03→19:08)
[2021-10-25] MEDS: ALBUTEROL FS 2.5 MG/0.5 ML VIAL.NEB NEB SCH ×4 (02:03→19:08)
[2021-10-25] MEDS: LEVOTHYROXINE SODIUM 75 MCG TABLET GT SCH (05:22)
[2021-10-25] MEDS: INSULIN ASPART/LISPRO 100 UNIT/ML CARTRIDGE SQ PRN ×2 (05:35→13:14)
[2021-10-25] MEDS: BLOOD SUGAR DIAGNOSTIC 1 EACH STRIP IN SCH ×3 (05:35→21:22)
[2021-10-25] MEDS: GLUCERNA 1.2 1,000 ML BOTTLE GT PRN (05:35)
[2021-10-25 07:16] VITALS: BP 124/82
[2021-10-25] MEDS: HYDROGEN PEROXIDE 480 ML BOTTLE TP SCH ×2 (08:13→20:08)
[2021-10-25] MEDS: CHOLESTYRAMINE/ASPARTAME 4 G/PKT PACKET GT SCH (09:05)
[2021-10-25] MEDS: SIROLIMUS 1 MG GT SCH (09:05)
[2021-10-25] MEDS: JANUVIA 25 MG GT SCH (09:05)
[2021-10-25] MEDS: FERROUS SULFATE - FOR SA ONLY 330 MG/7.5 ML UDC GT SCH ×3 (09:05→17:00)
[2021-10-25] MEDS: LEVETIRACETAM 500 MG GT SCH ×2 (09:05→21:16)
[2021-10-25] MEDS: FAMOTIDINE (20 MG) 20 MG TABLET GT SCH (09:05)
[2021-10-25] MEDS: APIXABAN 2.5 MG TABLET GT SCH ×2 (09:05→17:00)
[2021-10-25] MEDS: BACLOFEN 5 MG GT SCH ×2 (09:05→17:00)
[2021-10-25] MEDS: Z GUARD REMEDY 4 OZ OINT TP SCH ×2 (09:06→21:22)
[2021-10-25] MEDS: MULTIVIT W/MINERALS 1 TAB TABLET GT SCH (09:06)
[2021-10-25] MEDS: DIGOXIN 0.125 MG TABLET GT SCH (13:00)
[2021-10-25 13:43] VITALS: BP 116/71
--- NOTE | 2021-10-25 14:30 | NUR ---
Virtual rounds done by Nadine Taylor, no new order given.
[2021-10-25 20:36] VITALS: BP 140/75
[2021-10-25] MEDS: LATANOPROST EYE DROP 0.005% 2.5 ML BOTTLE EACHEYE SCH (21:22)
[2021-10-25] MEDS: TAMSULOSIN 0.4 MG CAP.SR.24H GT SCH (21:22)
[2021-10-25] MEDS: INSULIN GLARGINE, 100 UNIT/ML CARTRIDGE SQ SCH (21:23)
[2021-10-26] MEDS: IPRATROPIUM NEB FS 0.5 MG/2.5 ML AMPUL.NEB NEB SCH ×4 (01:04→20:09)
[2021-10-26] MEDS: ALBUTEROL FS 2.5 MG/0.5 ML VIAL.NEB NEB SCH ×4 (01:04→20:09)
[2021-10-26] MEDS: BLOOD SUGAR DIAGNOSTIC 1 EACH STRIP IN SCH ×3 (05:35→21:11)
[2021-10-26] MEDS: LEVOTHYROXINE SODIUM 75 MCG TABLET GT SCH (05:35)
[2021-10-26 08:36] VITALS: BP 145/90
[2021-10-26] MEDS: Z GUARD REMEDY 4 OZ OINT TP SCH ×2 (09:00→21:11)
[2021-10-26] MEDS: APIXABAN 2.5 MG TABLET GT SCH ×2 (09:00→17:00)
[2021-10-26] MEDS: FERROUS SULFATE - FOR SA ONLY 330 MG/7.5 ML UDC GT SCH ×3 (09:18→17:58)
[2021-10-26] MEDS: LEVETIRACETAM 500 MG GT SCH ×2 (09:18→21:11)
[2021-10-26] MEDS: JANUVIA 25 MG GT SCH (09:18)
[2021-10-26] MEDS: HYDROGEN PEROXIDE 480 ML BOTTLE TP SCH ×2 (09:18→21:00)
[2021-10-26] MEDS: SIROLIMUS 1 MG GT SCH (09:18)
[2021-10-26] MEDS: BACLOFEN 5 MG GT SCH ×2 (09:19→17:58)
[2021-10-26] MEDS: MULTIVIT W/MINERALS 1 TAB TABLET GT SCH (09:19)
[2021-10-26] MEDS: FAMOTIDINE (20 MG) 20 MG TABLET GT SCH (09:19)
[2021-10-26] MEDS: CHOLESTYRAMINE/ASPARTAME 4 G/PKT PACKET GT SCH (09:20)
[2021-10-26 13:18] VITALS: BP 161/70
[2021-10-26] MEDS: DIGOXIN 0.125 MG TABLET GT SCH (13:20)
[2021-10-26] MEDS: GLUCERNA 1.2 1,000 ML BOTTLE GT PRN (18:13)
[2021-10-26 20:23] VITALS: BP 110/52
[2021-10-26] MEDS: LATANOPROST EYE DROP 0.005% 2.5 ML BOTTLE EACHEYE SCH (21:11)
[2021-10-26] MEDS: TAMSULOSIN 0.4 MG CAP.SR.24H GT SCH (21:11)
[2021-10-26] MEDS: INSULIN GLARGINE, 100 UNIT/ML CARTRIDGE SQ SCH (21:12)
[2021-10-27] MEDS: ALBUTEROL FS 2.5 MG/0.5 ML VIAL.NEB NEB SCH ×4 (02:13→20:03)
[2021-10-27] MEDS: IPRATROPIUM NEB FS 0.5 MG/2.5 ML AMPUL.NEB NEB SCH ×4 (02:13→20:03)
[2021-10-27] MEDS: LEVOTHYROXINE SODIUM 75 MCG TABLET GT SCH (05:47)
[2021-10-27] MEDS: BLOOD SUGAR DIAGNOSTIC 1 EACH STRIP IN SCH ×3 (05:47→21:17)
[2021-10-27 07:24] VITALS: BP 120/45
[2021-10-27] MEDS: HYDROGEN PEROXIDE 480 ML BOTTLE TP SCH ×2 (09:00→20:10)
[2021-10-27] MEDS: FAMOTIDINE (20 MG) 20 MG TABLET GT SCH (09:43)
[2021-10-27] MEDS: FERROUS SULFATE - FOR SA ONLY 330 MG/7.5 ML UDC GT SCH ×3 (09:43→16:08)
[2021-10-27] MEDS: LEVETIRACETAM 500 MG GT SCH ×2 (09:43→21:17)
[2021-10-27] MEDS: SIROLIMUS 1 MG GT SCH (09:43)
[2021-10-27] MEDS: APIXABAN 2.5 MG TABLET GT SCH ×2 (09:43→16:08)
[2021-10-27] MEDS: JANUVIA 25 MG GT SCH (09:43)
[2021-10-27] MEDS: BACLOFEN 5 MG GT SCH ×2 (09:43→16:08)
[2021-10-27] MEDS: CHOLESTYRAMINE/ASPARTAME 4 G/PKT PACKET GT SCH (09:45)
[2021-10-27] MEDS: Z GUARD REMEDY 4 OZ OINT TP SCH ×2 (09:45→21:17)
[2021-10-27] MEDS: MULTIVIT W/MINERALS 1 TAB TABLET GT SCH (09:45)
[2021-10-27 12:10] VITALS: BP 127/72
--- NOTE | 2021-10-27 12:59 | NUR ---
Virtual rounds done by LENKA Taylor, no new order given.
[2021-10-27] MEDS: DIGOXIN 0.125 MG TABLET GT SCH (13:09)
[2021-10-27] MEDS: INSULIN ASPART/LISPRO 100 UNIT/ML CARTRIDGE SQ PRN (13:53)
--- NOTE | 2021-10-27 14:01 | NUR ---
Seen and examined by Dr. Fritz, reported TSH level 4.435 with order to increase Synthroid from 75 mcg. to 100 mcg. MD also notified that patient's HR was running below 50 beats/ min. yesterday afternoon but not in distress, Dr. Fritz reviewed BP reading for the past couple of days, ordered to get Digoxin level in AM. Patient's son Trevon informed.
[2021-10-27] MEDS: GLUCERNA 1.2 1,000 ML BOTTLE GT PRN (16:12)
[2021-10-27 20:16] VITALS: BP 129/87
[2021-10-27] MEDS: TAMSULOSIN 0.4 MG CAP.SR.24H GT SCH (21:17)
[2021-10-27] MEDS: LATANOPROST EYE DROP 0.005% 2.5 ML BOTTLE EACHEYE SCH (21:17)
[2021-10-27] MEDS: INSULIN GLARGINE, 100 UNIT/ML CARTRIDGE SQ SCH (21:18)
[2021-10-28] MEDS: IPRATROPIUM NEB FS 0.5 MG/2.5 ML AMPUL.NEB NEB SCH ×4 (00:46→19:39)
[2021-10-28] MEDS: ALBUTEROL FS 2.5 MG/0.5 ML VIAL.NEB NEB SCH ×4 (00:46→19:39)
[2021-10-28] MEDS: BLOOD SUGAR DIAGNOSTIC 1 EACH STRIP IN SCH ×3 (05:48→21:20)
[2021-10-28] MEDS: LEVOTHYROXINE SODIUM 100 MCG TABLET GT SCH (05:48)
[2021-10-28 07:44] VITALS: BP 150/72
[2021-10-28] MEDS: Z GUARD REMEDY 4 OZ OINT TP SCH ×2 (09:31→21:21)
[2021-10-28] MEDS: SIROLIMUS 1 MG GT SCH (09:31)
[2021-10-28] MEDS: BACLOFEN 5 MG GT SCH ×2 (09:31→17:25)
[2021-10-28] MEDS: LEVETIRACETAM 500 MG GT SCH ×2 (09:31→21:20)
[2021-10-28] MEDS: CHOLESTYRAMINE/ASPARTAME 4 G/PKT PACKET GT SCH (09:31)
[2021-10-28] MEDS: APIXABAN 2.5 MG TABLET GT SCH ×2 (09:31→17:25)
[2021-10-28] MEDS: FERROUS SULFATE - FOR SA ONLY 330 MG/7.5 ML UDC GT SCH ×3 (09:31→17:25)
[2021-10-28] MEDS: JANUVIA 25 MG GT SCH (09:31)
[2021-10-28] MEDS: FAMOTIDINE (20 MG) 20 MG TABLET GT SCH (09:31)
[2021-10-28] MEDS: GLUCERNA 1.2 1,000 ML BOTTLE GT PRN (09:31)
[2021-10-28] MEDS: MULTIVIT W/MINERALS 1 TAB TABLET GT SCH (09:31)
[2021-10-28] MEDS: HYDROGEN PEROXIDE 480 ML BOTTLE TP SCH ×2 (09:31→21:50)
[2021-10-28] MEDS: INSULIN ASPART/LISPRO 100 UNIT/ML CARTRIDGE SQ PRN ×2 (13:25→21:24)
[2021-10-28] MEDS: DIGOXIN 0.125 MG TABLET GT SCH (13:25)
[2021-10-28 13:37] VITALS: BP 152/90
[2021-10-28 19:48] VITALS: BP 119/63
[2021-10-28] MEDS: TAMSULOSIN 0.4 MG CAP.SR.24H GT SCH (21:22)
[2021-10-28] MEDS: LATANOPROST EYE DROP 0.005% 2.5 ML BOTTLE EACHEYE SCH (21:22)
[2021-10-28] MEDS: INSULIN GLARGINE, 100 UNIT/ML CARTRIDGE SQ SCH (21:23)
[2021-10-29] MEDS: ALBUTEROL FS 2.5 MG/0.5 ML VIAL.NEB NEB SCH ×4 (01:52→19:22)
[2021-10-29] MEDS: IPRATROPIUM NEB FS 0.5 MG/2.5 ML AMPUL.NEB NEB SCH ×4 (01:52→19:22)
[2021-10-29] MEDS: INSULIN ASPART/LISPRO 100 UNIT/ML CARTRIDGE SQ PRN ×2 (05:30→21:26)
[2021-10-29] MEDS: LEVOTHYROXINE SODIUM 100 MCG TABLET GT SCH (05:30)
[2021-10-29] MEDS: BLOOD SUGAR DIAGNOSTIC 1 EACH STRIP IN SCH ×3 (05:30→21:17)
[2021-10-29] MEDS: GLUCERNA 1.2 1,000 ML BOTTLE GT PRN (05:30)
[2021-10-29 07:46] VITALS: BP 150/70
[2021-10-29] MEDS: HYDROGEN PEROXIDE 480 ML BOTTLE TP SCH ×2 (08:48→20:42)
[2021-10-29] MEDS: CHOLESTYRAMINE/ASPARTAME 4 G/PKT PACKET GT SCH (09:00)
[2021-10-29] MEDS: SIROLIMUS 1 MG GT SCH (09:00)
[2021-10-29] MEDS: MULTIVIT W/MINERALS 1 TAB TABLET GT SCH (09:00)
[2021-10-29] MEDS: JANUVIA 25 MG GT SCH (09:00)
[2021-10-29] MEDS: FAMOTIDINE (20 MG) 20 MG TABLET GT SCH (09:00)
[2021-10-29] MEDS: APIXABAN 2.5 MG TABLET GT SCH ×2 (09:00→17:03)
[2021-10-29] MEDS: FERROUS SULFATE - FOR SA ONLY 330 MG/7.5 ML UDC GT SCH ×3 (09:00→17:03)
[2021-10-29] MEDS: LEVETIRACETAM 500 MG GT SCH ×2 (09:00→20:19)
[2021-10-29] MEDS: BACLOFEN 5 MG GT SCH ×2 (09:00→17:03)
[2021-10-29] MEDS: Z GUARD REMEDY 4 OZ OINT TP SCH ×2 (09:00→20:19)
[2021-10-29] MEDS: DIGOXIN 0.125 MG TABLET GT SCH (13:14)
[2021-10-29 13:29] VITALS: BP 132/78
--- NOTE | 2021-10-29 16:11 | NUR ---
Intake Paperwork: DELMI left intake paperwork on 10/20/2021 for patient's son, Trevon Albrecht to sign. DELMI received intake paperwork today signed by family. DELMI called & left Trevon a voicemail to confirm code status. DELMI will file paperwork upon confirmation of code status.
[2021-10-29 19:48] VITALS: BP 133/63
[2021-10-29] MEDS: LATANOPROST EYE DROP 0.005% 2.5 ML BOTTLE EACHEYE SCH (21:17)
[2021-10-29] MEDS: TAMSULOSIN 0.4 MG CAP.SR.24H GT SCH (21:17)
[2021-10-29] MEDS: INSULIN GLARGINE, 100 UNIT/ML CARTRIDGE SQ SCH (21:18)
[2021-10-30 00:05] VITALS: BP 108/54
[2021-10-30] MEDS: ALBUTEROL FS 2.5 MG/0.5 ML VIAL.NEB NEB SCH ×4 (01:53→20:03)
[2021-10-30] MEDS: IPRATROPIUM NEB FS 0.5 MG/2.5 ML AMPUL.NEB NEB SCH ×4 (01:53→20:03)
[2021-10-30] MEDS: GLUCERNA 1.2 1,000 ML BOTTLE GT PRN ×2 (02:00→18:24)
[2021-10-30] MEDS: INSULIN ASPART/LISPRO 100 UNIT/ML CARTRIDGE SQ PRN ×3 (05:17→21:17)
[2021-10-30] MEDS: LEVOTHYROXINE SODIUM 100 MCG TABLET GT SCH (05:17)
[2021-10-30] MEDS: BLOOD SUGAR DIAGNOSTIC 1 EACH STRIP IN SCH ×4 (05:17→21:11)
[2021-10-30 06:51] LABS: BASOPHILS % (AUTO) 0.2 % (0.0-2.0); EOSINOPHILS % (AUTO) 2.9 % (0.0-6.0); HEMATOCRIT 31 % (39-51); HEMOGLOBIN 9.9 g/dL (13.5-17.5); LYMPHOCYTES # (AUTO) 1.5 K/uL (0.8-4.8); LYMPHOCYTES % (AUTO) 19.2 % (20.0-44.0); MEAN CORPUSCULAR HGB CONC 32 g/dl (31.0-36.0); MEAN CORPUSCULAR VOLUME 97 fL (80-96); MONOCYTES # (AUTO) 0.6 K/uL (0.1-1.30); MONOCYTES % (AUTO) 7.2 % (2.0-12.0); NEUTROPHILS # (AUTO) 5.5 K/uL (1.8-8.9); NEUTROPHILS % (AUTO) 70.5 % (43.0-81.0); PLATELET COUNT (AUTO) 142 K/uL (150-450); RED BLOOD CELL COUNT(AUTO) 3.17 MIL/uL (4.5-6.0); WHITE BLOOD COUNT (AUTO) 7.8 K/uL (4.3-11.0)
[2021-10-30 07:29] LABS: CALCIUM, SERUM 9.5 mg/dL (8.5-10.1); CARBON DIOXIDE 30 mmol/L (21-32); CHLORIDE 98 mmol/L (98-107); CREATININE 1.6 mg/dL (0.6-1.3); GLUCOSE 87 mg/dL (74-106); MAGNESIUM 2.4 mg/dL (1.8-2.4); PHOSPHORUS 4.9 mg/dL (2.5-4.9); POTASSIUM 4.4 mmol/L (3.5-5.1); SODIUM SERUM 137 mmol/L (136-145); UREA NITROGEN, BLOOD 25 mg/dL (7-18)
[2021-10-30 08:22] VITALS: BP 143/82
[2021-10-30] MEDS: HYDROGEN PEROXIDE 480 ML BOTTLE TP SCH ×2 (09:12→20:30)
[2021-10-30] MEDS: APIXABAN 2.5 MG TABLET GT SCH ×2 (09:18→16:47)
[2021-10-30] MEDS: FAMOTIDINE (20 MG) 20 MG TABLET GT SCH (09:19)
[2021-10-30] MEDS: MULTIVIT W/MINERALS 1 TAB TABLET GT SCH (09:19)
[2021-10-30] MEDS: Z GUARD REMEDY 4 OZ OINT TP SCH ×2 (09:19→20:30)
[2021-10-30] MEDS: JANUVIA 25 MG GT SCH (09:19)
[2021-10-30] MEDS: CHOLESTYRAMINE/ASPARTAME 4 G/PKT PACKET GT SCH (09:19)
[2021-10-30] MEDS: SIROLIMUS 1 MG GT SCH (09:19)
[2021-10-30] MEDS: FERROUS SULFATE - FOR SA ONLY 330 MG/7.5 ML UDC GT SCH ×3 (09:19→16:47)
[2021-10-30] MEDS: BACLOFEN 5 MG GT SCH ×2 (09:19→16:47)
[2021-10-30] MEDS: LEVETIRACETAM 500 MG GT SCH ×2 (09:19→20:29)
--- NOTE | 2021-10-30 12:03 | NUR ---
Intake Paperwork: This SW called the patients SonTrevon [phone] and reviewed the intake paperwork: (Patient Right's Acknowledgement, Conditions of Admission, Documentation of Preferred Intensity of Care, CDPH Agreement, and Voluntary Prior Express Consent form, and An Important Message from Medicare). Cristian expressed understanding and stated the pt. should be Maximum Treatment (No Blood Transfusions) and CPR. This SW addressed all of the familys questions. Insurance Verifier educated Cristian on advanced health care directive and conservatorship and provided him with informational packets. The patient is not oriented enough to complete Advanced Healthcare Directive. Family was receptive to information SW filed signed paperwork in patient's chart.
[2021-10-30 12:26] VITALS: BP 132/81
[2021-10-30] MEDS: DIGOXIN 0.125 MG TABLET GT SCH (13:11)
--- NOTE | 2021-10-30 15:24 | NUR ---
Updated Visitation Guidelines & Facility Update: DELMI informed pt.'s responsible green party that, "DELMI Facility Update: A [facility] employee tested positive for COVID-19 this week. Residents and staff will continue receiving response testing. We will continue to implement [facility] infection control protocols and continue screening employees before every shift. [facility] continues to follow infection control protocols and screen our residents and staff daily for symptoms". DELMI also informed family about updated visitation guidelines: FOR EACH VISIT, Visitors should be permitted if they show proof of their fully vaccinated status AND regardless of vaccination status, must provide proof of either: A negative PCR test taken within 48 hours prior to entry OR A negative FDA-approved Antigen (rapid test) within 24 hours prior to entry *Visitors who visits for multiple consecutive days are required to show proof of a negative FDA-approved SARS-CoV-2 test at least every third day (E.G. test on day 1 day 4 day 7 an so on)
[2021-10-30 19:58] VITALS: BP 134/75
[2021-10-30] MEDS: LATANOPROST EYE DROP 0.005% 2.5 ML BOTTLE EACHEYE SCH (21:15)
[2021-10-30] MEDS: TAMSULOSIN 0.4 MG CAP.SR.24H GT SCH (21:15)
[2021-10-30] MEDS: INSULIN GLARGINE, 100 UNIT/ML CARTRIDGE SQ SCH (21:16)
[2021-10-31 00:32] VITALS: BP 148/89
[2021-10-31] MEDS: ALBUTEROL FS 2.5 MG/0.5 ML VIAL.NEB NEB SCH ×4 (01:58→19:54)
[2021-10-31] MEDS: IPRATROPIUM NEB FS 0.5 MG/2.5 ML AMPUL.NEB NEB SCH ×4 (01:58→19:54)
[2021-10-31] MEDS: BLOOD SUGAR DIAGNOSTIC 1 EACH STRIP IN SCH ×3 (05:17→21:23)
[2021-10-31] MEDS: LEVOTHYROXINE SODIUM 100 MCG TABLET GT SCH (05:18)
[2021-10-31] MEDS: INSULIN ASPART/LISPRO 100 UNIT/ML CARTRIDGE SQ PRN ×3 (05:19→21:24)
[2021-10-31] MEDS: HYDROGEN PEROXIDE 480 ML BOTTLE TP SCH ×2 (07:53→21:00)
[2021-10-31 07:59] VITALS: BP 141/55
[2021-10-31] MEDS: APIXABAN 2.5 MG TABLET GT SCH ×2 (09:15→16:43)
[2021-10-31] MEDS: FERROUS SULFATE - FOR SA ONLY 330 MG/7.5 ML UDC GT SCH ×3 (09:16→16:43)
[2021-10-31] MEDS: SIROLIMUS 1 MG GT SCH (09:16)
[2021-10-31] MEDS: MULTIVIT W/MINERALS 1 TAB TABLET GT SCH (09:16)
[2021-10-31] MEDS: LEVETIRACETAM 500 MG GT SCH ×2 (09:16→21:23)
[2021-10-31] MEDS: CHOLESTYRAMINE/ASPARTAME 4 G/PKT PACKET GT SCH (09:16)
[2021-10-31] MEDS: BACLOFEN 5 MG GT SCH ×2 (09:16→16:43)
[2021-10-31] MEDS: FAMOTIDINE (20 MG) 20 MG TABLET GT SCH (09:16)
[2021-10-31] MEDS: JANUVIA 25 MG GT SCH (09:16)
[2021-10-31] MEDS: Z GUARD REMEDY 4 OZ OINT TP SCH ×2 (09:17→21:23)
[2021-10-31 11:49] VITALS: BP 136/62
[2021-10-31] MEDS: DIGOXIN 0.125 MG TABLET GT SCH (13:03)
[2021-10-31] MEDS: GLUCERNA 1.2 1,000 ML BOTTLE GT PRN (13:24)
[2021-10-31 19:38] VITALS: BP 142/77
[2021-10-31] MEDS: INSULIN GLARGINE, 100 UNIT/ML CARTRIDGE SQ SCH (21:23)
[2021-10-31] MEDS: LATANOPROST EYE DROP 0.005% 2.5 ML BOTTLE EACHEYE SCH (21:23)
[2021-10-31] MEDS: TAMSULOSIN 0.4 MG CAP.SR.24H GT SCH (21:23)
[2021-11-01 00:13] VITALS: BP 174/84
[2021-11-01] MEDS: IPRATROPIUM NEB FS 0.5 MG/2.5 ML AMPUL.NEB NEB SCH ×4 (02:15→19:19)
[2021-11-01] MEDS: ALBUTEROL FS 2.5 MG/0.5 ML VIAL.NEB NEB SCH ×4 (02:15→19:19)
[2021-11-01] MEDS: BLOOD SUGAR DIAGNOSTIC 1 EACH STRIP IN SCH ×3 (05:21→20:38)
[2021-11-01] MEDS: LEVOTHYROXINE SODIUM 100 MCG TABLET GT SCH (05:21)
[2021-11-01] MEDS: GLUCERNA 1.2 1,000 ML BOTTLE GT PRN (05:22)
[2021-11-01] MEDS: INSULIN ASPART/LISPRO 100 UNIT/ML CARTRIDGE SQ PRN ×2 (05:22→12:48)
[2021-11-01 08:31] VITALS: BP 156/76
[2021-11-01] MEDS: HYDROGEN PEROXIDE 480 ML BOTTLE TP SCH ×2 (09:00→19:19)
[2021-11-01] MEDS: APIXABAN 2.5 MG TABLET GT SCH ×2 (09:06→16:48)
[2021-11-01] MEDS: JANUVIA 25 MG GT SCH (09:06)
[2021-11-01] MEDS: FERROUS SULFATE - FOR SA ONLY 330 MG/7.5 ML UDC GT SCH ×3 (09:06→16:48)
[2021-11-01] MEDS: LEVETIRACETAM 500 MG GT SCH ×2 (09:07→20:37)
[2021-11-01] MEDS: BACLOFEN 5 MG GT SCH ×2 (09:07→16:48)
[2021-11-01] MEDS: FAMOTIDINE (20 MG) 20 MG TABLET GT SCH (09:07)
[2021-11-01] MEDS: Z GUARD REMEDY 4 OZ OINT TP SCH ×2 (09:07→20:38)
[2021-11-01] MEDS: MULTIVIT W/MINERALS 1 TAB TABLET GT SCH (09:07)
[2021-11-01] MEDS: CHOLESTYRAMINE/ASPARTAME 4 G/PKT PACKET GT SCH (09:07)
[2021-11-01] MEDS: SIROLIMUS 1 MG GT SCH (09:14)
[2021-11-01] MEDS: DIGOXIN 0.125 MG TABLET GT SCH (12:47)
--- NOTE | 2021-11-01 18:08 | NUR ---
Called patients' son (Trevon) and made aware that one patient tested positive so will test every patient to follow infection control procedure. Patients' son appreciative of the call. Patient still on Quarantine x 14 days for possible exposure and still no visitation. Reeducated staff regarding contact/droplet precautions and reinforced hand hygiene before and after care.
[2021-11-01 20:29] VITALS: BP 121/82
[2021-11-01] MEDS: LATANOPROST EYE DROP 0.005% 2.5 ML BOTTLE EACHEYE SCH (21:11)
[2021-11-01] MEDS: TAMSULOSIN 0.4 MG CAP.SR.24H GT SCH (21:11)
[2021-11-01] MEDS: INSULIN GLARGINE, 100 UNIT/ML CARTRIDGE SQ SCH (21:12)
[2021-11-02] MEDS: IPRATROPIUM NEB FS 0.5 MG/2.5 ML AMPUL.NEB NEB SCH ×4 (02:20→19:18)
[2021-11-02] MEDS: ALBUTEROL FS 2.5 MG/0.5 ML VIAL.NEB NEB SCH ×4 (02:20→19:18)
[2021-11-02] MEDS: BLOOD SUGAR DIAGNOSTIC 1 EACH STRIP IN SCH ×3 (05:27→20:38)
[2021-11-02] MEDS: INSULIN ASPART/LISPRO 100 UNIT/ML CARTRIDGE SQ PRN ×3 (05:28→20:39)
[2021-11-02] MEDS: LEVOTHYROXINE SODIUM 100 MCG TABLET GT SCH (05:28)
[2021-11-02] MEDS: GLUCERNA 1.2 1,000 ML BOTTLE GT PRN (05:28)
--- NOTE | 2021-11-02 06:05 | NUR ---
PATIENT RECEIVED ON TRACH TO VENT WITH SETTINGS OF AC 12, 500 Vt, 30%, +5. SUCTIONED FOR MINIMAL, THIN, YELLOW SECRETIONS. GIVEN IN-LINE TREATMENTS WITH NO ADVERSE REACTIONS. AMBU BAG AT BEDSIDE. VENT AND PULSE OXIMETER ALARMS AUDIBLE AND VISIBLE. VENT PLUGGED INTO RED OUTLET. Addendum: 11/02/21 at 0606 by JAY OVALLES RT Amended: Links added.
[2021-11-02 07:27] VITALS: BP 118/65
[2021-11-02] MEDS: HYDROGEN PEROXIDE 480 ML BOTTLE TP SCH ×2 (09:39→20:31)
[2021-11-02] MEDS: APIXABAN 2.5 MG TABLET GT SCH ×2 (09:56→16:44)
[2021-11-02] MEDS: JANUVIA 25 MG GT SCH (09:56)
[2021-11-02] MEDS: BACLOFEN 5 MG GT SCH ×2 (09:56→16:44)
[2021-11-02] MEDS: MULTIVIT W/MINERALS 1 TAB TABLET GT SCH (09:56)
[2021-11-02] MEDS: LEVETIRACETAM 500 MG GT SCH ×2 (09:56→20:23)
[2021-11-02] MEDS: FAMOTIDINE (20 MG) 20 MG TABLET GT SCH (09:56)
[2021-11-02] MEDS: SIROLIMUS 1 MG GT SCH (09:56)
[2021-11-02] MEDS: FERROUS SULFATE - FOR SA ONLY 330 MG/7.5 ML UDC GT SCH ×3 (09:56→16:44)
[2021-11-02] MEDS: CHOLESTYRAMINE/ASPARTAME 4 G/PKT PACKET GT SCH (09:56)
[2021-11-02] MEDS: Z GUARD REMEDY 4 OZ OINT TP SCH ×2 (09:57→20:24)
[2021-11-02 12:02] VITALS: BP 100/66
[2021-11-02] MEDS: DIGOXIN 0.125 MG TABLET GT SCH (13:14)
[2021-11-02 20:22] VITALS: BP 147/68
[2021-11-02] MEDS: TAMSULOSIN 0.4 MG CAP.SR.24H GT SCH (21:09)
[2021-11-02] MEDS: LATANOPROST EYE DROP 0.005% 2.5 ML BOTTLE EACHEYE SCH (21:09)
[2021-11-02] MEDS: INSULIN GLARGINE, 100 UNIT/ML CARTRIDGE SQ SCH (21:10)
[2021-11-03] MEDS: ALBUTEROL FS 2.5 MG/0.5 ML VIAL.NEB NEB SCH ×4 (00:36→19:22)
[2021-11-03] MEDS: IPRATROPIUM NEB FS 0.5 MG/2.5 ML AMPUL.NEB NEB SCH ×4 (00:36→19:22)
[2021-11-03] MEDS: GLUCERNA 1.2 1,000 ML BOTTLE GT PRN (03:55)
[2021-11-03] MEDS: LEVOTHYROXINE SODIUM 100 MCG TABLET GT SCH (05:23)
[2021-11-03] MEDS: BLOOD SUGAR DIAGNOSTIC 1 EACH STRIP IN SCH ×3 (05:23→20:29)
[2021-11-03] MEDS: INSULIN ASPART/LISPRO 100 UNIT/ML CARTRIDGE SQ PRN ×3 (05:23→20:31)
[2021-11-03 08:00] VITALS: BP 117/70
[2021-11-03] MEDS: HYDROGEN PEROXIDE 480 ML BOTTLE TP SCH ×2 (08:57→19:22)
[2021-11-03] MEDS: FERROUS SULFATE - FOR SA ONLY 330 MG/7.5 ML UDC GT SCH ×3 (09:00→17:43)
[2021-11-03] MEDS: LEVETIRACETAM 500 MG GT SCH ×2 (09:00→20:29)
[2021-11-03] MEDS: JANUVIA 25 MG GT SCH (09:00)
[2021-11-03] MEDS: APIXABAN 2.5 MG TABLET GT SCH ×2 (09:00→17:43)
[2021-11-03] MEDS: SIROLIMUS 1 MG GT SCH (09:00)
[2021-11-03] MEDS: Z GUARD REMEDY 4 OZ OINT TP SCH ×2 (09:00→20:29)
[2021-11-03] MEDS: MULTIVIT W/MINERALS 1 TAB TABLET GT SCH (09:00)
[2021-11-03] MEDS: FAMOTIDINE (20 MG) 20 MG TABLET GT SCH (09:00)
[2021-11-03] MEDS: CHOLESTYRAMINE/ASPARTAME 4 G/PKT PACKET GT SCH (09:00)
[2021-11-03] MEDS: BACLOFEN 5 MG GT SCH ×2 (09:00→17:43)
--- NOTE | 2021-11-03 10:59 | NUR ---
Monthly progress notes.Resident is alert , unable t verbalize hi needs. Smetimes he respond by nodding his head.Engaged in watching Free & Clear program on TV. He received daily visit for sensooory stimulation, TV, music, hand massage, reality orientation. Continue to provide these activities as needed,.
[2021-11-03 12:29] VITALS: BP 145/60
[2021-11-03] MEDS: DIGOXIN 0.125 MG TABLET GT SCH (13:17)
[2021-11-03 19:19] VITALS: BP 157/71
[2021-11-03] MEDS: TAMSULOSIN 0.4 MG CAP.SR.24H GT SCH (21:22)
[2021-11-03] MEDS: LATANOPROST EYE DROP 0.005% 2.5 ML BOTTLE EACHEYE SCH (21:22)
[2021-11-03] MEDS: INSULIN GLARGINE, 100 UNIT/ML CARTRIDGE SQ SCH (21:23)
[2021-11-04] MEDS: ALBUTEROL FS 2.5 MG/0.5 ML VIAL.NEB NEB SCH ×4 (02:00→19:39)
[2021-11-04] MEDS: IPRATROPIUM NEB FS 0.5 MG/2.5 ML AMPUL.NEB NEB SCH ×5 (02:00→19:39)
[2021-11-04] MEDS: GLUCERNA 1.2 1,000 ML BOTTLE GT PRN (04:18)
[2021-11-04] MEDS: LEVOTHYROXINE SODIUM 100 MCG TABLET GT SCH (05:20)
[2021-11-04] MEDS: BLOOD SUGAR DIAGNOSTIC 1 EACH STRIP IN SCH ×3 (05:20→21:47)
[2021-11-04] MEDS: INSULIN ASPART/LISPRO 100 UNIT/ML CARTRIDGE SQ PRN ×3 (05:21→21:49)
[2021-11-04 07:51] VITALS: BP 123/71
[2021-11-04] MEDS: HYDROGEN PEROXIDE 480 ML BOTTLE TP PRN (08:20)
[2021-11-04] MEDS: HYDROGEN PEROXIDE 480 ML BOTTLE TP SCH ×2 (09:00→21:49)
[2021-11-04] MEDS: FERROUS SULFATE - FOR SA ONLY 330 MG/7.5 ML UDC GT SCH ×3 (09:01→17:13)
[2021-11-04] MEDS: APIXABAN 2.5 MG TABLET GT SCH ×2 (09:01→17:12)
[2021-11-04] MEDS: LEVETIRACETAM 500 MG GT SCH ×2 (09:02→21:11)
[2021-11-04] MEDS: MULTIVIT W/MINERALS 1 TAB TABLET GT SCH (09:02)
[2021-11-04] MEDS: JANUVIA 25 MG GT SCH (09:02)
[2021-11-04] MEDS: CHOLESTYRAMINE/ASPARTAME 4 G/PKT PACKET GT SCH (09:02)
[2021-11-04] MEDS: SIROLIMUS 1 MG GT SCH (09:02)
[2021-11-04] MEDS: Z GUARD REMEDY 4 OZ OINT TP SCH ×2 (09:02→21:11)
[2021-11-04] MEDS: BACLOFEN 5 MG GT SCH ×2 (09:02→17:13)
[2021-11-04] MEDS: FAMOTIDINE (20 MG) 20 MG TABLET GT SCH (09:02)
[2021-11-04 12:43] VITALS: BP 126/65
[2021-11-04] MEDS: DIGOXIN 0.125 MG TABLET GT SCH (14:00)
[2021-11-04 19:08] VITALS: BP 149/71
[2021-11-04] MEDS: TAMSULOSIN 0.4 MG CAP.SR.24H GT SCH (21:11)
[2021-11-04] MEDS: LATANOPROST EYE DROP 0.005% 2.5 ML BOTTLE EACHEYE SCH (21:11)
[2021-11-04] MEDS: INSULIN GLARGINE, 100 UNIT/ML CARTRIDGE SQ SCH (21:48)
[2021-11-04 23:53] VITALS: BP 144/76
[2021-11-05] MEDS: ALBUTEROL FS 2.5 MG/0.5 ML VIAL.NEB NEB SCH ×4 (02:26→19:30)
[2021-11-05] MEDS: IPRATROPIUM NEB FS 0.5 MG/2.5 ML AMPUL.NEB NEB SCH ×3 (02:26→19:30)
[2021-11-05] MEDS: BLOOD SUGAR DIAGNOSTIC 1 EACH STRIP IN SCH ×3 (05:20→21:22)
[2021-11-05] MEDS: GLUCERNA 1.2 1,000 ML BOTTLE GT PRN (05:20)
[2021-11-05] MEDS: LEVOTHYROXINE SODIUM 100 MCG TABLET GT SCH (05:20)
[2021-11-05] MEDS: INSULIN ASPART/LISPRO 100 UNIT/ML CARTRIDGE SQ PRN ×2 (05:21→12:47)
[2021-11-05 07:51] VITALS: BP 135/63
[2021-11-05] MEDS: HYDROGEN PEROXIDE 480 ML BOTTLE TP SCH ×2 (07:57→20:24)
[2021-11-05] MEDS: CHOLESTYRAMINE/ASPARTAME 4 G/PKT PACKET GT SCH (09:36)
[2021-11-05] MEDS: LEVETIRACETAM 500 MG GT SCH ×2 (09:36→21:22)
[2021-11-05] MEDS: FERROUS SULFATE - FOR SA ONLY 330 MG/7.5 ML UDC GT SCH ×3 (09:36→17:15)
[2021-11-05] MEDS: SIROLIMUS 1 MG GT SCH (09:36)
[2021-11-05] MEDS: FAMOTIDINE (20 MG) 20 MG TABLET GT SCH (09:36)
[2021-11-05] MEDS: Z GUARD REMEDY 4 OZ OINT TP SCH ×2 (09:36→21:22)
[2021-11-05] MEDS: JANUVIA 25 MG GT SCH (09:36)
[2021-11-05] MEDS: APIXABAN 2.5 MG TABLET GT SCH ×2 (09:36→17:14)
[2021-11-05] MEDS: BACLOFEN 5 MG GT SCH ×2 (09:36→17:15)
[2021-11-05] MEDS: MULTIVIT W/MINERALS 1 TAB TABLET GT SCH (09:36)
[2021-11-05 12:18] VITALS: BP 128/63
[2021-11-05] MEDS: DIGOXIN 0.125 MG TABLET GT SCH (12:46)
--- NOTE | 2021-11-05 16:53 | NUR ---
DELMI emailed the pt.'s son, Trevon at [email or web address] to notify them that: A [employer] employee tested positive for COVID-19 this week. Residents and staff will continue receiving response testing as outlined by [facility] Department of Public Health. We will continue to implement [facility] infection control protocols and continue screening employees before every shift. [facility] continues to follow infection control protocols and screen our residents and staff daily for symptoms.
[2021-11-05 19:29] VITALS: BP 130/74
--- NOTE | 2021-11-05 20:27 | NUR ---
BREATHING TX NOT GIVEN AT THIS TIME DUE TO PATIENT BEING ON RULE OUT. RN NOTIFIED. WILL CONT TO MONITOR
[2021-11-05] MEDS: TAMSULOSIN 0.4 MG CAP.SR.24H GT SCH (21:22)
[2021-11-05] MEDS: LATANOPROST EYE DROP 0.005% 2.5 ML BOTTLE EACHEYE SCH (21:22)
[2021-11-05] MEDS: INSULIN GLARGINE, 100 UNIT/ML CARTRIDGE SQ SCH (21:23)
[2021-11-06 00:32] VITALS: BP 122/72
[2021-11-06] MEDS: GLUCERNA 1.2 1,000 ML BOTTLE GT PRN (00:41)
[2021-11-06] MEDS: ALBUTEROL FS 2.5 MG/0.5 ML VIAL.NEB NEB SCH ×4 (01:21→19:45)
[2021-11-06] MEDS: IPRATROPIUM NEB FS 0.5 MG/2.5 ML AMPUL.NEB NEB SCH ×4 (01:21→19:45)
[2021-11-06] MEDS: LEVOTHYROXINE SODIUM 100 MCG TABLET GT SCH (05:30)
[2021-11-06] MEDS: BLOOD SUGAR DIAGNOSTIC 1 EACH STRIP IN SCH ×3 (05:30→21:47)
[2021-11-06] MEDS: INSULIN ASPART/LISPRO 100 UNIT/ML CARTRIDGE SQ PRN ×3 (05:31→21:48)
[2021-11-06 07:18] VITALS: BP 110/57
[2021-11-06] MEDS: HYDROGEN PEROXIDE 480 ML BOTTLE TP SCH ×2 (09:30→21:53)
[2021-11-06] MEDS: BACLOFEN 5 MG GT SCH ×2 (09:47→17:05)
[2021-11-06] MEDS: MULTIVIT W/MINERALS 1 TAB TABLET GT SCH (09:47)
[2021-11-06] MEDS: JANUVIA 25 MG GT SCH (09:47)
[2021-11-06] MEDS: Z GUARD REMEDY 4 OZ OINT TP SCH ×2 (09:47→21:05)
[2021-11-06] MEDS: FAMOTIDINE (20 MG) 20 MG TABLET GT SCH (09:47)
[2021-11-06] MEDS: SIROLIMUS 1 MG GT SCH (09:47)
[2021-11-06] MEDS: APIXABAN 2.5 MG TABLET GT SCH ×2 (09:47→17:04)
[2021-11-06] MEDS: LEVETIRACETAM 500 MG GT SCH ×2 (09:47→21:05)
[2021-11-06] MEDS: CHOLESTYRAMINE/ASPARTAME 4 G/PKT PACKET GT SCH (09:47)
[2021-11-06] MEDS: FERROUS SULFATE - FOR SA ONLY 330 MG/7.5 ML UDC GT SCH ×3 (09:47→17:04)
[2021-11-06 11:52] VITALS: BP 168/84
[2021-11-06] MEDS: DIGOXIN 0.125 MG TABLET GT SCH (12:26)
[2021-11-06 20:20] VITALS: BP 123/71
[2021-11-06] MEDS: LATANOPROST EYE DROP 0.005% 2.5 ML BOTTLE EACHEYE SCH (21:05)
[2021-11-06] MEDS: TAMSULOSIN 0.4 MG CAP.SR.24H GT SCH (21:05)
[2021-11-06] MEDS: INSULIN GLARGINE, 100 UNIT/ML CARTRIDGE SQ SCH (21:48)
[2021-11-07] MEDS: IPRATROPIUM NEB FS 0.5 MG/2.5 ML AMPUL.NEB NEB SCH ×4 (02:08→19:34)
[2021-11-07] MEDS: ALBUTEROL FS 2.5 MG/0.5 ML VIAL.NEB NEB SCH ×4 (02:08→19:34)
[2021-11-07] MEDS: LEVOTHYROXINE SODIUM 100 MCG TABLET GT SCH (05:35)
[2021-11-07] MEDS: BLOOD SUGAR DIAGNOSTIC 1 EACH STRIP IN SCH ×3 (05:35→21:25)
[2021-11-07] MEDS: INSULIN ASPART/LISPRO 100 UNIT/ML CARTRIDGE SQ PRN ×2 (05:36→12:55)
[2021-11-07] MEDS: GLUCERNA 1.2 1,000 ML BOTTLE GT PRN (06:19)
[2021-11-07 06:45] LABS: BASOPHILS % (AUTO) 0.3 % (0.0-2.0); HEMATOCRIT 30 % (39-51); HEMOGLOBIN 9.9 g/dL (13.5-17.5); LYMPHOCYTES # (AUTO) 1.2 K/uL (0.8-4.8); LYMPHOCYTES % (AUTO) 18.9 % (20.0-44.0); MEAN CORPUSCULAR HGB CONC 33 g/dl (31.0-36.0); MEAN CORPUSCULAR VOLUME 97 fL (80-96); MONOCYTES # (AUTO) 0.6 K/uL (0.1-1.30); MONOCYTES % (AUTO) 9.4 % (2.0-12.0); NEUTROPHILS # (AUTO) 4.4 K/uL (1.8-8.9); NEUTROPHILS % (AUTO) 67.4 % (43.0-81.0); PLATELET COUNT (AUTO) 120 K/uL (150-450); RED BLOOD CELL COUNT(AUTO) 3.12 MIL/uL (4.5-6.0); WHITE BLOOD COUNT (AUTO) 6.6 K/uL (4.3-11.0)
[2021-11-07 07:18] VITALS: BP 127/67
[2021-11-07 07:19] LABS: CALCIUM, SERUM 9.5 mg/dL (8.5-10.1); CARBON DIOXIDE 28 mmol/L (21-32); CHLORIDE 97 mmol/L (98-107); CREATININE 1.5 mg/dL (0.6-1.3); GLUCOSE 128 mg/dL (74-106); MAGNESIUM 2.7 mg/dL (1.8-2.4); PHOSPHORUS 4.6 mg/dL (2.5-4.9); POTASSIUM 4.4 mmol/L (3.5-5.1); SODIUM SERUM 133 mmol/L (136-145); UREA NITROGEN, BLOOD 28 mg/dL (7-18)
[2021-11-07] MEDS: BACLOFEN 5 MG GT SCH ×2 (08:18→16:47)
[2021-11-07] MEDS: FAMOTIDINE (20 MG) 20 MG TABLET GT SCH (08:18)
[2021-11-07] MEDS: APIXABAN 2.5 MG TABLET GT SCH ×2 (08:18→16:47)
[2021-11-07] MEDS: SIROLIMUS 1 MG GT SCH (08:18)
[2021-11-07] MEDS: LEVETIRACETAM 500 MG GT SCH ×2 (08:18→21:25)
[2021-11-07] MEDS: MULTIVIT W/MINERALS 1 TAB TABLET GT SCH (08:18)
[2021-11-07] MEDS: CHOLESTYRAMINE/ASPARTAME 4 G/PKT PACKET GT SCH (08:18)
[2021-11-07] MEDS: FERROUS SULFATE - FOR SA ONLY 330 MG/7.5 ML UDC GT SCH ×3 (08:18→16:47)
[2021-11-07] MEDS: JANUVIA 25 MG GT SCH (08:18)
[2021-11-07] MEDS: Z GUARD REMEDY 4 OZ OINT TP SCH ×2 (08:18→21:25)
[2021-11-07] MEDS: HYDROGEN PEROXIDE 480 ML BOTTLE TP SCH ×2 (09:00→21:05)
[2021-11-07 12:17] VITALS: BP 121/88
[2021-11-07] MEDS: DIGOXIN 0.125 MG TABLET GT SCH (12:54)
[2021-11-07 19:50] VITALS: BP 143/78
[2021-11-07] MEDS: TAMSULOSIN 0.4 MG CAP.SR.24H GT SCH (21:25)
[2021-11-07] MEDS: LATANOPROST EYE DROP 0.005% 2.5 ML BOTTLE EACHEYE SCH (21:25)
[2021-11-07] MEDS: INSULIN GLARGINE, 100 UNIT/ML CARTRIDGE SQ SCH (21:26)
[2021-11-08] MEDS: IPRATROPIUM NEB FS 0.5 MG/2.5 ML AMPUL.NEB NEB SCH ×4 (00:48→19:21)
[2021-11-08] MEDS: ALBUTEROL FS 2.5 MG/0.5 ML VIAL.NEB NEB SCH ×4 (00:48→19:21)
[2021-11-08 00:55] VITALS: BP 120/56
[2021-11-08] MEDS: GLUCERNA 1.2 1,000 ML BOTTLE GT PRN (05:44)
[2021-11-08] MEDS: LEVOTHYROXINE SODIUM 100 MCG TABLET GT SCH (05:44)
[2021-11-08] MEDS: BLOOD SUGAR DIAGNOSTIC 1 EACH STRIP IN SCH ×3 (05:44→20:51)
[2021-11-08] MEDS: INSULIN ASPART/LISPRO 100 UNIT/ML CARTRIDGE SQ PRN ×3 (05:48→20:54)
[2021-11-08 07:56] VITALS: BP 135/59
[2021-11-08] MEDS: HYDROGEN PEROXIDE 480 ML BOTTLE TP SCH ×2 (08:18→20:31)
[2021-11-08] MEDS: CHOLESTYRAMINE/ASPARTAME 4 G/PKT PACKET GT SCH (09:59)
[2021-11-08] MEDS: JANUVIA 25 MG GT SCH (09:59)
[2021-11-08] MEDS: BACLOFEN 5 MG GT SCH ×2 (09:59→16:47)
[2021-11-08] MEDS: MULTIVIT W/MINERALS 1 TAB TABLET GT SCH (09:59)
[2021-11-08] MEDS: LEVETIRACETAM 500 MG GT SCH ×2 (09:59→20:24)
[2021-11-08] MEDS: APIXABAN 2.5 MG TABLET GT SCH ×2 (09:59→16:47)
[2021-11-08] MEDS: SIROLIMUS 1 MG GT SCH (09:59)
[2021-11-08] MEDS: FAMOTIDINE (20 MG) 20 MG TABLET GT SCH (09:59)
[2021-11-08] MEDS: FERROUS SULFATE - FOR SA ONLY 330 MG/7.5 ML UDC GT SCH ×3 (09:59→16:47)
[2021-11-08] MEDS: Z GUARD REMEDY 4 OZ OINT TP SCH ×2 (10:00→20:24)
[2021-11-08] MEDS: DIGOXIN 0.125 MG TABLET GT SCH (13:00)
[2021-11-08 18:30] VITALS: BP 129/64
[2021-11-08 20:36] VITALS: BP 142/92
[2021-11-08] MEDS: TAMSULOSIN 0.4 MG CAP.SR.24H GT SCH (21:23)
[2021-11-08] MEDS: LATANOPROST EYE DROP 0.005% 2.5 ML BOTTLE EACHEYE SCH (21:23)
[2021-11-08] MEDS: INSULIN GLARGINE, 100 UNIT/ML CARTRIDGE SQ SCH (21:29)
[2021-11-09] MEDS: GLUCERNA 1.2 1,000 ML BOTTLE GT PRN ×2 (00:12→18:11)
[2021-11-09] MEDS: ALBUTEROL FS 2.5 MG/0.5 ML VIAL.NEB NEB SCH ×4 (00:39→19:39)
[2021-11-09] MEDS: IPRATROPIUM NEB FS 0.5 MG/2.5 ML AMPUL.NEB NEB SCH ×4 (00:39→19:39)
[2021-11-09] MEDS: BLOOD SUGAR DIAGNOSTIC 1 EACH STRIP IN SCH ×3 (05:16→20:21)
[2021-11-09] MEDS: LEVOTHYROXINE SODIUM 100 MCG TABLET GT SCH (05:17)
[2021-11-09] MEDS: INSULIN ASPART/LISPRO 100 UNIT/ML CARTRIDGE SQ PRN ×3 (05:17→20:54)
[2021-11-09 07:42] VITALS: BP 115/84
[2021-11-09] MEDS: HYDROGEN PEROXIDE 480 ML BOTTLE TP SCH ×2 (09:00→21:00)
[2021-11-09] MEDS: LEVETIRACETAM 500 MG GT SCH ×2 (09:18→20:21)
[2021-11-09] MEDS: JANUVIA 25 MG GT SCH (09:18)
[2021-11-09] MEDS: FERROUS SULFATE - FOR SA ONLY 330 MG/7.5 ML UDC GT SCH ×3 (09:18→16:24)
[2021-11-09] MEDS: BACLOFEN 5 MG GT SCH ×2 (09:18→16:24)
[2021-11-09] MEDS: SIROLIMUS 1 MG GT SCH (09:18)
[2021-11-09] MEDS: APIXABAN 2.5 MG TABLET GT SCH ×2 (09:18→16:24)
[2021-11-09] MEDS: MULTIVIT W/MINERALS 1 TAB TABLET GT SCH (09:19)
[2021-11-09] MEDS: Z GUARD REMEDY 4 OZ OINT TP SCH ×2 (09:19→20:22)
[2021-11-09] MEDS: FAMOTIDINE (20 MG) 20 MG TABLET GT SCH (09:19)
[2021-11-09] MEDS: CHOLESTYRAMINE/ASPARTAME 4 G/PKT PACKET GT SCH (09:19)
[2021-11-09] MEDS: DIGOXIN 0.125 MG TABLET GT SCH (12:23)
[2021-11-09 14:25] VITALS: BP 111/69
--- NOTE | 2021-11-09 16:13 | NUR ---
DELMI emailed the pt.'s son, Trevon at [email or web address] to notify them that: Facility Update: Please note that a [employer] employee tested positive for COVID-19 this weekend and a [employer] pt. tested positive today. Residents and staff will continue receiving response testing as outlined by [facility] Department of Public Health. [facility] will continue to implement [facility] infection control protocols and continue screening employees before every shift. [facility] continues to follow infection control protocols and screen our residents and staff daily for symptoms.
[2021-11-09 20:02] VITALS: BP 142/69
[2021-11-09] MEDS: TAMSULOSIN 0.4 MG CAP.SR.24H GT SCH (21:28)
[2021-11-09] MEDS: LATANOPROST EYE DROP 0.005% 2.5 ML BOTTLE EACHEYE SCH (21:28)
[2021-11-09] MEDS: INSULIN GLARGINE, 100 UNIT/ML CARTRIDGE SQ SCH (21:29)
[2021-11-10] MEDS: ALBUTEROL FS 2.5 MG/0.5 ML VIAL.NEB NEB SCH ×3 (01:32→20:07)
[2021-11-10] MEDS: IPRATROPIUM NEB FS 0.5 MG/2.5 ML AMPUL.NEB NEB SCH ×3 (01:32→20:07)
[2021-11-10] MEDS: INSULIN ASPART/LISPRO 100 UNIT/ML CARTRIDGE SQ PRN ×3 (05:16→20:44)
[2021-11-10] MEDS: BLOOD SUGAR DIAGNOSTIC 1 EACH STRIP IN SCH ×3 (05:16→20:18)
[2021-11-10] MEDS: LEVOTHYROXINE SODIUM 100 MCG TABLET GT SCH (05:16)
[2021-11-10 07:39] VITALS: BP 133/71
[2021-11-10] MEDS: APIXABAN 2.5 MG TABLET GT SCH ×2 (09:38→16:54)
[2021-11-10] MEDS: CHOLESTYRAMINE/ASPARTAME 4 G/PKT PACKET GT SCH (09:38)
[2021-11-10] MEDS: MULTIVIT W/MINERALS 1 TAB TABLET GT SCH (09:38)
[2021-11-10] MEDS: SIROLIMUS 1 MG GT SCH (09:38)
[2021-11-10] MEDS: LEVETIRACETAM 500 MG GT SCH ×2 (09:38→20:18)
[2021-11-10] MEDS: JANUVIA 25 MG GT SCH (09:38)
[2021-11-10] MEDS: BACLOFEN 5 MG GT SCH ×2 (09:38→16:54)
[2021-11-10] MEDS: FERROUS SULFATE - FOR SA ONLY 330 MG/7.5 ML UDC GT SCH ×3 (09:38→16:54)
[2021-11-10] MEDS: FAMOTIDINE (20 MG) 20 MG TABLET GT SCH (09:38)
[2021-11-10] MEDS: Z GUARD REMEDY 4 OZ OINT TP SCH ×2 (09:39→20:18)
[2021-11-10] MEDS: HYDROGEN PEROXIDE 480 ML BOTTLE TP SCH ×2 (09:58→23:35)
[2021-11-10] MEDS: DIGOXIN 0.125 MG TABLET GT SCH (12:51)
[2021-11-10 13:25] VITALS: BP 140/59
[2021-11-10 20:23] VITALS: BP 148/70
[2021-11-10] MEDS: LATANOPROST EYE DROP 0.005% 2.5 ML BOTTLE EACHEYE SCH (21:14)
[2021-11-10] MEDS: TAMSULOSIN 0.4 MG CAP.SR.24H GT SCH (21:14)
[2021-11-10] MEDS: INSULIN GLARGINE, 100 UNIT/ML CARTRIDGE SQ SCH (21:15)
[2021-11-11] MEDS: ALBUTEROL FS 2.5 MG/0.5 ML VIAL.NEB NEB SCH ×4 (01:59→19:30)
[2021-11-11] MEDS: IPRATROPIUM NEB FS 0.5 MG/2.5 ML AMPUL.NEB NEB SCH ×4 (01:59→19:30)
[2021-11-11] MEDS: BLOOD SUGAR DIAGNOSTIC 1 EACH STRIP IN SCH ×3 (05:13→21:27)
[2021-11-11] MEDS: LEVOTHYROXINE SODIUM 100 MCG TABLET GT SCH (05:13)
[2021-11-11] MEDS: INSULIN ASPART/LISPRO 100 UNIT/ML CARTRIDGE SQ PRN ×3 (05:14→21:29)
[2021-11-11 07:30] VITALS: BP 120/53
[2021-11-11] MEDS: BACLOFEN 5 MG GT SCH ×2 (09:00→17:00)
[2021-11-11] MEDS: MULTIVIT W/MINERALS 1 TAB TABLET GT SCH (09:00)
[2021-11-11] MEDS: Z GUARD REMEDY 4 OZ OINT TP SCH ×2 (09:00→21:28)
[2021-11-11] MEDS: JANUVIA 25 MG GT SCH (09:00)
[2021-11-11] MEDS: FERROUS SULFATE - FOR SA ONLY 330 MG/7.5 ML UDC GT SCH ×3 (09:00→17:00)
[2021-11-11] MEDS: APIXABAN 2.5 MG TABLET GT SCH ×2 (09:00→17:00)
[2021-11-11] MEDS: FAMOTIDINE (20 MG) 20 MG TABLET GT SCH (09:00)
[2021-11-11] MEDS: SIROLIMUS 1 MG GT SCH (09:00)
[2021-11-11] MEDS: HYDROGEN PEROXIDE 480 ML BOTTLE TP SCH ×2 (09:00→21:04)
[2021-11-11] MEDS: CHOLESTYRAMINE/ASPARTAME 4 G/PKT PACKET GT SCH (09:00)
[2021-11-11] MEDS: LEVETIRACETAM 500 MG GT SCH ×2 (09:00→21:27)
[2021-11-11] MEDS: GLUCERNA 1.2 1,000 ML BOTTLE GT PRN (11:25)
[2021-11-11 12:00] VITALS: BP 162/100
[2021-11-11] MEDS: DIGOXIN 0.125 MG TABLET GT SCH (14:00)
[2021-11-11 19:36] VITALS: BP 142/78
[2021-11-11] MEDS: LATANOPROST EYE DROP 0.005% 2.5 ML BOTTLE EACHEYE SCH (21:28)
[2021-11-11] MEDS: TAMSULOSIN 0.4 MG CAP.SR.24H GT SCH (21:28)
[2021-11-11] MEDS: INSULIN GLARGINE, 100 UNIT/ML CARTRIDGE SQ SCH (21:29)
[2021-11-12 00:06] VITALS: BP 118/76
[2021-11-12] MEDS: ALBUTEROL FS 2.5 MG/0.5 ML VIAL.NEB NEB SCH ×4 (01:54→19:49)
[2021-11-12] MEDS: IPRATROPIUM NEB FS 0.5 MG/2.5 ML AMPUL.NEB NEB SCH ×4 (01:54→19:49)
[2021-11-12] MEDS: INSULIN ASPART/LISPRO 100 UNIT/ML CARTRIDGE SQ PRN ×3 (05:20→21:37)
[2021-11-12] MEDS: LEVOTHYROXINE SODIUM 100 MCG TABLET GT SCH (05:20)
[2021-11-12] MEDS: BLOOD SUGAR DIAGNOSTIC 1 EACH STRIP IN SCH ×3 (05:20→21:31)
[2021-11-12] MEDS: GLUCERNA 1.2 1,000 ML BOTTLE GT PRN ×2 (05:21→21:36)
[2021-11-12 07:19] VITALS: BP 135/60
[2021-11-12] MEDS: HYDROGEN PEROXIDE 480 ML BOTTLE TP SCH ×2 (08:48→21:00)
[2021-11-12] MEDS: FERROUS SULFATE - FOR SA ONLY 330 MG/7.5 ML UDC GT SCH ×3 (08:52→17:08)
[2021-11-12] MEDS: Z GUARD REMEDY 4 OZ OINT TP SCH ×2 (08:52→21:31)
[2021-11-12] MEDS: MULTIVIT W/MINERALS 1 TAB TABLET GT SCH (08:52)
[2021-11-12] MEDS: FAMOTIDINE (20 MG) 20 MG TABLET GT SCH (08:52)
[2021-11-12] MEDS: JANUVIA 25 MG GT SCH (08:52)
[2021-11-12] MEDS: LEVETIRACETAM 500 MG GT SCH ×2 (08:52→21:31)
[2021-11-12] MEDS: BACLOFEN 5 MG GT SCH ×2 (08:52→17:08)
[2021-11-12] MEDS: CHOLESTYRAMINE/ASPARTAME 4 G/PKT PACKET GT SCH (08:52)
[2021-11-12] MEDS: APIXABAN 2.5 MG TABLET GT SCH ×2 (08:52→17:08)
[2021-11-12] MEDS: SIROLIMUS 1 MG GT SCH (08:52)
[2021-11-12 11:31] VITALS: BP 146/78
[2021-11-12] MEDS: DIGOXIN 0.125 MG TABLET GT SCH (13:07)
[2021-11-12 19:45] VITALS: BP 143/59
[2021-11-12] MEDS: LATANOPROST EYE DROP 0.005% 2.5 ML BOTTLE EACHEYE SCH (21:31)
[2021-11-12] MEDS: TAMSULOSIN 0.4 MG CAP.SR.24H GT SCH (21:31)
[2021-11-12] MEDS: INSULIN GLARGINE, 100 UNIT/ML CARTRIDGE SQ SCH (21:32)
[2021-11-13 00:04] VITALS: BP 123/73
[2021-11-13] MEDS: IPRATROPIUM NEB FS 0.5 MG/2.5 ML AMPUL.NEB NEB SCH ×4 (01:21→19:49)
[2021-11-13] MEDS: ALBUTEROL FS 2.5 MG/0.5 ML VIAL.NEB NEB SCH ×4 (01:21→19:49)
[2021-11-13] MEDS: INSULIN ASPART/LISPRO 100 UNIT/ML CARTRIDGE SQ PRN ×3 (05:35→21:15)
[2021-11-13] MEDS: BLOOD SUGAR DIAGNOSTIC 1 EACH STRIP IN SCH ×3 (05:35→21:10)
[2021-11-13] MEDS: LEVOTHYROXINE SODIUM 100 MCG TABLET GT SCH (05:35)
[2021-11-13 07:25] VITALS: BP 145/97
[2021-11-13] MEDS: HYDROGEN PEROXIDE 480 ML BOTTLE TP SCH ×2 (09:00→21:27)
[2021-11-13] MEDS: FERROUS SULFATE - FOR SA ONLY 330 MG/7.5 ML UDC GT SCH ×3 (09:05→17:36)
[2021-11-13] MEDS: APIXABAN 2.5 MG TABLET GT SCH ×2 (09:05→17:36)
[2021-11-13] MEDS: JANUVIA 25 MG GT SCH (09:06)
[2021-11-13] MEDS: CHOLESTYRAMINE/ASPARTAME 4 G/PKT PACKET GT SCH (09:06)
[2021-11-13] MEDS: BACLOFEN 5 MG GT SCH ×2 (09:06→17:36)
[2021-11-13] MEDS: MULTIVIT W/MINERALS 1 TAB TABLET GT SCH (09:06)
[2021-11-13] MEDS: LEVETIRACETAM 500 MG GT SCH ×2 (09:06→21:10)
[2021-11-13] MEDS: Z GUARD REMEDY 4 OZ OINT TP SCH ×2 (09:06→21:11)
[2021-11-13] MEDS: FAMOTIDINE (20 MG) 20 MG TABLET GT SCH (09:06)
[2021-11-13] MEDS: SIROLIMUS 1 MG GT SCH (09:06)
[2021-11-13 11:51] VITALS: BP 139/88
[2021-11-13] MEDS: DIGOXIN 0.125 MG TABLET GT SCH (12:27)
[2021-11-13] MEDS: GLUCERNA 1.2 1,000 ML BOTTLE GT PRN (17:38)
[2021-11-13 19:26] VITALS: BP 137/79
[2021-11-13] MEDS: TAMSULOSIN 0.4 MG CAP.SR.24H GT SCH (21:11)
[2021-11-13] MEDS: LATANOPROST EYE DROP 0.005% 2.5 ML BOTTLE EACHEYE SCH (21:11)
[2021-11-13] MEDS: INSULIN GLARGINE, 100 UNIT/ML CARTRIDGE SQ SCH (21:12)
[2021-11-14 00:10] VITALS: BP 143/73
[2021-11-14] MEDS: ALBUTEROL FS 2.5 MG/0.5 ML VIAL.NEB NEB SCH ×4 (02:27→20:13)
[2021-11-14] MEDS: IPRATROPIUM NEB FS 0.5 MG/2.5 ML AMPUL.NEB NEB SCH ×4 (02:27→20:13)
[2021-11-14] MEDS: LEVOTHYROXINE SODIUM 100 MCG TABLET GT SCH (05:33)
[2021-11-14] MEDS: BLOOD SUGAR DIAGNOSTIC 1 EACH STRIP IN SCH ×3 (05:33→21:09)
[2021-11-14] MEDS: INSULIN ASPART/LISPRO 100 UNIT/ML CARTRIDGE SQ PRN ×3 (05:35→21:11)
[2021-11-14 07:41] VITALS: BP 137/64
[2021-11-14] MEDS: BACLOFEN 5 MG GT SCH ×2 (09:19→17:00)
[2021-11-14] MEDS: LEVETIRACETAM 500 MG GT SCH ×2 (09:19→21:09)
[2021-11-14] MEDS: JANUVIA 25 MG GT SCH (09:19)
[2021-11-14] MEDS: SIROLIMUS 1 MG GT SCH (09:19)
[2021-11-14] MEDS: FERROUS SULFATE - FOR SA ONLY 330 MG/7.5 ML UDC GT SCH ×3 (09:19→17:00)
[2021-11-14] MEDS: APIXABAN 2.5 MG TABLET GT SCH ×2 (09:19→17:00)
[2021-11-14] MEDS: CHOLESTYRAMINE/ASPARTAME 4 G/PKT PACKET GT SCH (09:20)
[2021-11-14] MEDS: FAMOTIDINE (20 MG) 20 MG TABLET GT SCH (09:20)
[2021-11-14] MEDS: MULTIVIT W/MINERALS 1 TAB TABLET GT SCH (09:20)
[2021-11-14] MEDS: Z GUARD REMEDY 4 OZ OINT TP SCH ×2 (09:20→21:09)
[2021-11-14] MEDS: HYDROGEN PEROXIDE 480 ML BOTTLE TP SCH ×2 (09:31→20:14)
[2021-11-14 12:17] VITALS: BP 126/73
[2021-11-14] MEDS: GLUCERNA 1.2 1,000 ML BOTTLE GT PRN (12:25)
[2021-11-14] MEDS: DIGOXIN 0.125 MG TABLET GT SCH (12:26)
[2021-11-14] MEDS: TAMSULOSIN 0.4 MG CAP.SR.24H GT SCH (21:09)
[2021-11-14] MEDS: INSULIN GLARGINE, 100 UNIT/ML CARTRIDGE SQ SCH (21:09)
[2021-11-14] MEDS: LATANOPROST EYE DROP 0.005% 2.5 ML BOTTLE EACHEYE SCH (21:09)
[2021-11-14 21:18] VITALS: BP 163/75
[2021-11-15 00:28] VITALS: BP 139/89
[2021-11-15] MEDS: ALBUTEROL FS 2.5 MG/0.5 ML VIAL.NEB NEB SCH ×4 (00:55→19:59)
[2021-11-15] MEDS: IPRATROPIUM NEB FS 0.5 MG/2.5 ML AMPUL.NEB NEB SCH ×4 (00:55→19:59)
[2021-11-15] MEDS: BLOOD SUGAR DIAGNOSTIC 1 EACH STRIP IN SCH ×3 (05:00→21:53)
[2021-11-15] MEDS: LEVOTHYROXINE SODIUM 100 MCG TABLET GT SCH (05:17)
[2021-11-15] MEDS: INSULIN ASPART/LISPRO 100 UNIT/ML CARTRIDGE SQ PRN ×2 (06:32→12:53)
[2021-11-15 07:34] LABS: BASOPHILS % (AUTO) 0.3 % (0.0-2.0); EOSINOPHILS % (AUTO) 4.3 % (0.0-6.0); HEMATOCRIT 31 % (39-51); LYMPHOCYTES # (AUTO) 0.9 K/uL (0.8-4.8); LYMPHOCYTES % (AUTO) 12.9 % (20.0-44.0); MEAN CORPUSCULAR HGB CONC 32 g/dl (31.0-36.0); MEAN CORPUSCULAR VOLUME 96 fL (80-96); MONOCYTES # (AUTO) 0.7 K/uL (0.1-1.30); MONOCYTES % (AUTO) 9.7 % (2.0-12.0); NEUTROPHILS # (AUTO) 5.1 K/uL (1.8-8.9); NEUTROPHILS % (AUTO) 72.8 % (43.0-81.0); PLATELET COUNT (AUTO) 131 K/uL (150-450); RED BLOOD CELL COUNT(AUTO) 3.25 MIL/uL (4.5-6.0)
[2021-11-15] MEDS: HYDROGEN PEROXIDE 480 ML BOTTLE TP SCH ×2 (07:43→20:05)
[2021-11-15 07:44] LABS: CALCIUM, SERUM 8.9 mg/dL (8.5-10.1); CARBON DIOXIDE 31 mmol/L (21-32); CHLORIDE 98 mmol/L (98-107); CREATININE 1.4 mg/dL (0.6-1.3); GLUCOSE 104 mg/dL (74-106); MAGNESIUM 2.5 mg/dL (1.8-2.4); PHOSPHORUS 3.9 mg/dL (2.5-4.9); POTASSIUM 4.1 mmol/L (3.5-5.1); SODIUM SERUM 134 mmol/L (136-145); UREA NITROGEN, BLOOD 25 mg/dL (7-18)
[2021-11-15 07:52] VITALS: BP 132/51
[2021-11-15] MEDS: APIXABAN 2.5 MG TABLET GT SCH ×2 (09:48→17:11)
[2021-11-15] MEDS: CHOLESTYRAMINE/ASPARTAME 4 G/PKT PACKET GT SCH (09:49)
[2021-11-15] MEDS: JANUVIA 25 MG GT SCH (09:49)
[2021-11-15] MEDS: FERROUS SULFATE - FOR SA ONLY 330 MG/7.5 ML UDC GT SCH ×3 (09:49→17:11)
[2021-11-15] MEDS: FAMOTIDINE (20 MG) 20 MG TABLET GT SCH (09:49)
[2021-11-15] MEDS: BACLOFEN 5 MG GT SCH ×2 (09:49→17:11)
[2021-11-15] MEDS: SIROLIMUS 1 MG GT SCH (09:49)
[2021-11-15] MEDS: LEVETIRACETAM 500 MG GT SCH ×2 (09:49→21:53)
[2021-11-15] MEDS: MULTIVIT W/MINERALS 1 TAB TABLET GT SCH (09:50)
[2021-11-15] MEDS: Z GUARD REMEDY 4 OZ OINT TP SCH ×2 (09:50→21:53)
[2021-11-15] MEDS: GLUCERNA 1.2 1,000 ML BOTTLE GT PRN ×2 (11:36→15:00)
[2021-11-15 12:35] VITALS: BP 135/60
[2021-11-15] MEDS: DIGOXIN 0.125 MG TABLET GT SCH (12:51)
[2021-11-15 19:50] VITALS: BP 130/70
[2021-11-15] MEDS: LATANOPROST EYE DROP 0.005% 2.5 ML BOTTLE EACHEYE SCH (21:53)
[2021-11-15] MEDS: TAMSULOSIN 0.4 MG CAP.SR.24H GT SCH (21:54)
[2021-11-15] MEDS: INSULIN GLARGINE, 100 UNIT/ML CARTRIDGE SQ SCH (21:55)
[2021-11-16] MEDS: IPRATROPIUM NEB FS 0.5 MG/2.5 ML AMPUL.NEB NEB SCH ×4 (01:51→20:13)
[2021-11-16] MEDS: ALBUTEROL FS 2.5 MG/0.5 ML VIAL.NEB NEB SCH ×4 (01:51→20:13)
[2021-11-16] MEDS: LEVOTHYROXINE SODIUM 100 MCG TABLET GT SCH (05:50)
[2021-11-16] MEDS: BLOOD SUGAR DIAGNOSTIC 1 EACH STRIP IN SCH ×3 (05:50→21:31)
[2021-11-16] MEDS: INSULIN ASPART/LISPRO 100 UNIT/ML CARTRIDGE SQ PRN ×2 (05:52→12:53)
[2021-11-16] MEDS: GLUCERNA 1.2 1,000 ML BOTTLE GT PRN (05:58)
[2021-11-16 07:22] VITALS: BP 150/78
[2021-11-16] MEDS: HYDROGEN PEROXIDE 480 ML BOTTLE TP SCH ×2 (08:42→20:13)
[2021-11-16] MEDS: BACLOFEN 5 MG GT SCH ×2 (09:09→17:13)
[2021-11-16] MEDS: CHOLESTYRAMINE/ASPARTAME 4 G/PKT PACKET GT SCH (09:09)
[2021-11-16] MEDS: SIROLIMUS 1 MG GT SCH (09:09)
[2021-11-16] MEDS: APIXABAN 2.5 MG TABLET GT SCH ×2 (09:09→17:13)
[2021-11-16] MEDS: FERROUS SULFATE - FOR SA ONLY 330 MG/7.5 ML UDC GT SCH ×3 (09:09→17:13)
[2021-11-16] MEDS: MULTIVIT W/MINERALS 1 TAB TABLET GT SCH (09:09)
[2021-11-16] MEDS: FAMOTIDINE (20 MG) 20 MG TABLET GT SCH (09:09)
[2021-11-16] MEDS: LEVETIRACETAM 500 MG GT SCH ×2 (09:09→21:31)
[2021-11-16] MEDS: JANUVIA 25 MG GT SCH (09:09)
[2021-11-16] MEDS: Z GUARD REMEDY 4 OZ OINT TP SCH ×2 (09:09→21:31)
[2021-11-16 12:22] VITALS: BP 147/90
[2021-11-16] MEDS: DIGOXIN 0.125 MG TABLET GT SCH (12:50)
[2021-11-16 20:03] VITALS: BP 144/75
[2021-11-16] MEDS: LATANOPROST EYE DROP 0.005% 2.5 ML BOTTLE EACHEYE SCH (21:31)
[2021-11-16] MEDS: TAMSULOSIN 0.4 MG CAP.SR.24H GT SCH (21:31)
[2021-11-16] MEDS: INSULIN GLARGINE, 100 UNIT/ML CARTRIDGE SQ SCH (21:31)
[2021-11-17] MEDS: ALBUTEROL FS 2.5 MG/0.5 ML VIAL.NEB NEB SCH ×4 (00:46→20:14)
[2021-11-17] MEDS: IPRATROPIUM NEB FS 0.5 MG/2.5 ML AMPUL.NEB NEB SCH ×4 (00:46→20:14)
[2021-11-17] MEDS: INSULIN ASPART/LISPRO 100 UNIT/ML CARTRIDGE SQ PRN ×2 (05:39→13:33)
[2021-11-17] MEDS: BLOOD SUGAR DIAGNOSTIC 1 EACH STRIP IN SCH ×3 (05:39→21:40)
[2021-11-17] MEDS: LEVOTHYROXINE SODIUM 100 MCG TABLET GT SCH (05:39)
[2021-11-17 07:36] VITALS: BP 151/72
[2021-11-17] MEDS: CHOLESTYRAMINE/ASPARTAME 4 G/PKT PACKET GT SCH (08:01)
[2021-11-17] MEDS: Z GUARD REMEDY 4 OZ OINT TP SCH ×2 (09:00→21:40)
[2021-11-17] MEDS: FERROUS SULFATE - FOR SA ONLY 330 MG/7.5 ML UDC GT SCH ×3 (09:00→17:45)
[2021-11-17] MEDS: LEVETIRACETAM 500 MG GT SCH ×2 (09:00→21:37)
[2021-11-17] MEDS: SIROLIMUS 1 MG GT SCH (09:00)
[2021-11-17] MEDS: HYDROGEN PEROXIDE 480 ML BOTTLE TP SCH ×2 (09:00→21:19)
[2021-11-17] MEDS: JANUVIA 25 MG GT SCH (09:00)
[2021-11-17] MEDS: FAMOTIDINE (20 MG) 20 MG TABLET GT SCH (09:00)
[2021-11-17] MEDS: BACLOFEN 5 MG GT SCH ×2 (09:00→17:46)
[2021-11-17] MEDS: APIXABAN 2.5 MG TABLET GT SCH ×2 (09:00→17:45)
[2021-11-17] MEDS: MULTIVIT W/MINERALS 1 TAB TABLET GT SCH (09:00)
[2021-11-17 12:24] VITALS: BP 158/73
[2021-11-17] MEDS: DIGOXIN 0.125 MG TABLET GT SCH (13:31)
[2021-11-17] MEDS: GLUCERNA 1.2 1,000 ML BOTTLE GT PRN (17:46)
[2021-11-17 19:51] VITALS: BP 147/67
[2021-11-17] MEDS: TAMSULOSIN 0.4 MG CAP.SR.24H GT SCH (21:42)
[2021-11-17] MEDS: INSULIN GLARGINE, 100 UNIT/ML CARTRIDGE SQ SCH (21:44)
[2021-11-17] MEDS: LATANOPROST EYE DROP 0.005% 2.5 ML BOTTLE EACHEYE SCH (22:00)
[2021-11-18] MEDS: IPRATROPIUM NEB FS 0.5 MG/2.5 ML AMPUL.NEB NEB SCH ×4 (01:55→19:55)
[2021-11-18] MEDS: ALBUTEROL FS 2.5 MG/0.5 ML VIAL.NEB NEB SCH ×4 (01:55→19:55)
[2021-11-18] MEDS: BLOOD SUGAR DIAGNOSTIC 1 EACH STRIP IN SCH ×3 (05:46→21:13)
[2021-11-18] MEDS: LEVOTHYROXINE SODIUM 100 MCG TABLET GT SCH (05:46)
[2021-11-18] MEDS: INSULIN ASPART/LISPRO 100 UNIT/ML CARTRIDGE SQ PRN ×2 (06:31→13:17)
[2021-11-18 07:59] VITALS: BP 141/78
[2021-11-18] MEDS: JANUVIA 25 MG GT SCH (09:20)
[2021-11-18] MEDS: MULTIVIT W/MINERALS 1 TAB TABLET GT SCH (09:20)
[2021-11-18] MEDS: FAMOTIDINE (20 MG) 20 MG TABLET GT SCH (09:20)
[2021-11-18] MEDS: LEVETIRACETAM 500 MG GT SCH ×2 (09:20→21:12)
[2021-11-18] MEDS: Z GUARD REMEDY 4 OZ OINT TP SCH ×2 (09:20→21:13)
[2021-11-18] MEDS: APIXABAN 2.5 MG TABLET GT SCH ×2 (09:20→16:56)
[2021-11-18] MEDS: SIROLIMUS 1 MG GT SCH (09:20)
[2021-11-18] MEDS: BACLOFEN 5 MG GT SCH ×2 (09:20→16:56)
[2021-11-18] MEDS: CHOLESTYRAMINE/ASPARTAME 4 G/PKT PACKET GT SCH (09:20)
[2021-11-18] MEDS: FERROUS SULFATE - FOR SA ONLY 330 MG/7.5 ML UDC GT SCH ×3 (09:21→16:56)
[2021-11-18] MEDS: HYDROGEN PEROXIDE 480 ML BOTTLE TP SCH ×2 (09:50→21:00)
[2021-11-18 12:15] VITALS: BP 128/63
[2021-11-18] MEDS: DIGOXIN 0.125 MG TABLET GT SCH (13:16)
[2021-11-18] MEDS: GLUCERNA 1.2 1,000 ML BOTTLE GT PRN (16:56)
[2021-11-18 19:14] VITALS: BP 124/70
[2021-11-18] MEDS: TAMSULOSIN 0.4 MG CAP.SR.24H GT SCH (21:13)
[2021-11-18] MEDS: LATANOPROST EYE DROP 0.005% 2.5 ML BOTTLE EACHEYE SCH (21:13)
[2021-11-18] MEDS: INSULIN GLARGINE, 100 UNIT/ML CARTRIDGE SQ SCH (21:14)
[2021-11-19 00:56] VITALS: BP 130/76
[2021-11-19] MEDS: IPRATROPIUM NEB FS 0.5 MG/2.5 ML AMPUL.NEB NEB SCH ×4 (02:00→20:02)
[2021-11-19] MEDS: ALBUTEROL FS 2.5 MG/0.5 ML VIAL.NEB NEB SCH ×4 (02:00→20:02)
[2021-11-19] MEDS: LEVOTHYROXINE SODIUM 100 MCG TABLET GT SCH (05:26)
[2021-11-19] MEDS: BLOOD SUGAR DIAGNOSTIC 1 EACH STRIP IN SCH ×3 (05:26→21:01)
[2021-11-19] MEDS: INSULIN ASPART/LISPRO 100 UNIT/ML CARTRIDGE SQ PRN ×3 (05:26→21:02)
[2021-11-19 07:51] VITALS: BP 128/69
[2021-11-19] MEDS: FERROUS SULFATE - FOR SA ONLY 330 MG/7.5 ML UDC GT SCH ×3 (08:34→17:09)
[2021-11-19] MEDS: APIXABAN 2.5 MG TABLET GT SCH ×2 (08:34→17:09)
[2021-11-19] MEDS: CHOLESTYRAMINE/ASPARTAME 4 G/PKT PACKET GT SCH (08:35)
[2021-11-19] MEDS: JANUVIA 25 MG GT SCH (08:35)
[2021-11-19] MEDS: LEVETIRACETAM 500 MG GT SCH ×2 (08:35→20:22)
[2021-11-19] MEDS: SIROLIMUS 1 MG GT SCH (08:35)
[2021-11-19] MEDS: FAMOTIDINE (20 MG) 20 MG TABLET GT SCH (08:35)
[2021-11-19] MEDS: MULTIVIT W/MINERALS 1 TAB TABLET GT SCH (08:35)
[2021-11-19] MEDS: BACLOFEN 5 MG GT SCH ×2 (08:35→17:09)
[2021-11-19] MEDS: Z GUARD REMEDY 4 OZ OINT TP SCH ×2 (08:36→20:22)
[2021-11-19] MEDS: HYDROGEN PEROXIDE 480 ML BOTTLE TP SCH ×2 (08:55→20:02)
--- NOTE | 2021-11-19 11:01 | NUR ---
Seen by DOCUMENT PROCESSING SPECIALIST Nadine Taylor today via telemedicine/video call. Relayed TSH result to her. No new order.
[2021-11-19 12:34] VITALS: BP 145/66
[2021-11-19] MEDS: DIGOXIN 0.125 MG TABLET GT SCH (12:47)
--- NOTE | 2021-11-19 14:55 | NUR ---
Monthly progress notes,. Resident is awake but non responsive to verbal approach. Engaged for sensory stimulation, TV, hand massage, reality orientation, audio tapes. These activities will be provided as needed.
[2021-11-19 19:05] VITALS: BP 129/71
[2021-11-19] MEDS: INSULIN GLARGINE, 100 UNIT/ML CARTRIDGE SQ SCH (21:02)
[2021-11-19] MEDS: TAMSULOSIN 0.4 MG CAP.SR.24H GT SCH (21:02)
[2021-11-19] MEDS: LATANOPROST EYE DROP 0.005% 2.5 ML BOTTLE EACHEYE SCH (21:02)
[2021-11-20] VITALS: BP 132/80
[2021-11-20] MEDS: ALBUTEROL FS 2.5 MG/0.5 ML VIAL.NEB NEB SCH ×4 (02:07→19:25)
[2021-11-20] MEDS: IPRATROPIUM NEB FS 0.5 MG/2.5 ML AMPUL.NEB NEB SCH ×4 (02:07→19:25)
[2021-11-20] MEDS: LEVOTHYROXINE SODIUM 100 MCG TABLET GT SCH (05:16)
[2021-11-20] MEDS: BLOOD SUGAR DIAGNOSTIC 1 EACH STRIP IN SCH ×3 (05:16→21:34)
[2021-11-20] MEDS: INSULIN ASPART/LISPRO 100 UNIT/ML CARTRIDGE SQ PRN ×2 (05:16→21:35)
[2021-11-20 07:15] VITALS: BP 144/74
[2021-11-20] MEDS: HYDROGEN PEROXIDE 480 ML BOTTLE TP SCH ×2 (08:03→20:28)
[2021-11-20] MEDS: FERROUS SULFATE - FOR SA ONLY 330 MG/7.5 ML UDC GT SCH ×3 (09:08→16:54)
[2021-11-20] MEDS: SIROLIMUS 1 MG GT SCH (09:09)
[2021-11-20] MEDS: FAMOTIDINE (20 MG) 20 MG TABLET GT SCH (09:09)
[2021-11-20] MEDS: BACLOFEN 5 MG GT SCH ×2 (09:09→16:54)
[2021-11-20] MEDS: JANUVIA 25 MG GT SCH (09:09)
[2021-11-20] MEDS: LEVETIRACETAM 500 MG GT SCH ×2 (09:09→21:27)
[2021-11-20] MEDS: MULTIVIT W/MINERALS 1 TAB TABLET GT SCH (09:10)
[2021-11-20] MEDS: CHOLESTYRAMINE/ASPARTAME 4 G/PKT PACKET GT SCH (09:10)
[2021-11-20] MEDS: Z GUARD REMEDY 4 OZ OINT TP SCH ×2 (09:11→21:27)
[2021-11-20] MEDS: APIXABAN 2.5 MG TABLET GT SCH ×2 (09:12→16:54)
[2021-11-20 12:03] VITALS: BP 154/72
[2021-11-20] MEDS: GLUCERNA 1.2 1,000 ML BOTTLE GT PRN (12:41)
[2021-11-20] MEDS: DIGOXIN 0.125 MG TABLET GT SCH (12:41)
[2021-11-20 20:57] VITALS: BP_SYST 104; BP_SYST 152; BP_DIAS 54; BP_DIAS 71
[2021-11-20] MEDS: LATANOPROST EYE DROP 0.005% 2.5 ML BOTTLE EACHEYE SCH (21:27)
[2021-11-20] MEDS: TAMSULOSIN 0.4 MG CAP.SR.24H GT SCH (21:27)
[2021-11-20] MEDS: INSULIN GLARGINE, 100 UNIT/ML CARTRIDGE SQ SCH (21:35)
[2021-11-21 00:10] VITALS: BP 128/72
[2021-11-21] MEDS: IPRATROPIUM NEB FS 0.5 MG/2.5 ML AMPUL.NEB NEB SCH ×4 (01:35→19:31)
[2021-11-21] MEDS: ALBUTEROL FS 2.5 MG/0.5 ML VIAL.NEB NEB SCH ×4 (01:35→19:31)
[2021-11-21] MEDS: GUAIFENESIN 300 MG/15 ML UDC GT PRN (03:57)
[2021-11-21] MEDS: LEVOTHYROXINE SODIUM 100 MCG TABLET GT SCH (05:40)
[2021-11-21] MEDS: BLOOD SUGAR DIAGNOSTIC 1 EACH STRIP IN SCH ×3 (05:40→21:42)
[2021-11-21] MEDS: INSULIN ASPART/LISPRO 100 UNIT/ML CARTRIDGE SQ PRN ×3 (05:41→21:44)
[2021-11-21 07:44] VITALS: BP 134/51
[2021-11-21] MEDS: HYDROGEN PEROXIDE 480 ML BOTTLE TP SCH ×2 (08:19→21:30)
--- NOTE | 2021-11-21 08:30 | NUR ---
Resident noted to have redness in the david anal area. MD informed with treatment order. Resident's son Trevon notified.
[2021-11-21] MEDS: Z GUARD REMEDY 4 OZ OINT TP SCH ×4 (09:08→21:30)
[2021-11-21] MEDS: FERROUS SULFATE - FOR SA ONLY 330 MG/7.5 ML UDC GT SCH ×3 (09:08→17:49)
[2021-11-21] MEDS: CHOLESTYRAMINE/ASPARTAME 4 G/PKT PACKET GT SCH (09:09)
[2021-11-21] MEDS: FAMOTIDINE (20 MG) 20 MG TABLET GT SCH (09:09)
[2021-11-21] MEDS: MULTIVIT W/MINERALS 1 TAB TABLET GT SCH (09:09)
[2021-11-21] MEDS: LEVETIRACETAM 500 MG GT SCH ×2 (09:10→21:29)
[2021-11-21] MEDS: JANUVIA 25 MG GT SCH (09:10)
[2021-11-21] MEDS: BACLOFEN 5 MG GT SCH ×2 (09:10→17:49)
[2021-11-21] MEDS: SIROLIMUS 1 MG GT SCH (09:11)
[2021-11-21] MEDS: APIXABAN 2.5 MG TABLET GT SCH ×2 (09:11→17:49)
[2021-11-21 11:39] VITALS: BP 129/72
[2021-11-21] MEDS: DIGOXIN 0.125 MG TABLET GT SCH (13:00)
[2021-11-21] MEDS: GLUCERNA 1.2 1,000 ML BOTTLE GT PRN (14:39)
[2021-11-21 20:24] VITALS: BP 153/77
[2021-11-21] MEDS: TAMSULOSIN 0.4 MG CAP.SR.24H GT SCH (21:30)
[2021-11-21] MEDS: LATANOPROST EYE DROP 0.005% 2.5 ML BOTTLE EACHEYE SCH (21:30)
[2021-11-21] MEDS: INSULIN GLARGINE, 100 UNIT/ML CARTRIDGE SQ SCH (21:47)
[2021-11-22 00:23] VITALS: BP 135/64
[2021-11-22] MEDS: ALBUTEROL FS 2.5 MG/0.5 ML VIAL.NEB NEB SCH ×4 (01:01→20:00)
[2021-11-22] MEDS: IPRATROPIUM NEB FS 0.5 MG/2.5 ML AMPUL.NEB NEB SCH ×4 (01:01→20:00)
[2021-11-22] MEDS: BLOOD SUGAR DIAGNOSTIC 1 EACH STRIP IN SCH ×3 (05:00→21:22)
[2021-11-22] MEDS: INSULIN ASPART/LISPRO 100 UNIT/ML CARTRIDGE SQ PRN ×2 (05:18→14:21)
--- NOTE | 2021-11-22 05:19 | NUR ---
blood sugar [id number],no insulin needed.
[2021-11-22] MEDS: LEVOTHYROXINE SODIUM 100 MCG TABLET GT SCH (06:08)
[2021-11-22 07:29] VITALS: BP 118/64
[2021-11-22] MEDS: HYDROGEN PEROXIDE 480 ML BOTTLE TP SCH ×2 (08:02→20:23)
[2021-11-22] MEDS: APIXABAN 2.5 MG TABLET GT SCH ×2 (08:56→17:01)
[2021-11-22] MEDS: FERROUS SULFATE - FOR SA ONLY 330 MG/7.5 ML UDC GT SCH ×3 (08:56→17:01)
[2021-11-22] MEDS: LEVETIRACETAM 500 MG GT SCH ×2 (08:57→21:22)
[2021-11-22] MEDS: CHOLESTYRAMINE/ASPARTAME 4 G/PKT PACKET GT SCH (08:57)
[2021-11-22] MEDS: JANUVIA 25 MG GT SCH (08:57)
[2021-11-22] MEDS: SIROLIMUS 1 MG GT SCH (08:57)
[2021-11-22] MEDS: FAMOTIDINE (20 MG) 20 MG TABLET GT SCH (08:57)
[2021-11-22] MEDS: BACLOFEN 5 MG GT SCH ×2 (08:57→17:01)
[2021-11-22] MEDS: MULTIVIT W/MINERALS 1 TAB TABLET GT SCH (08:58)
[2021-11-22] MEDS: Z GUARD REMEDY 4 OZ OINT TP SCH ×6 (08:58→21:22)
[2021-11-22] MEDS: VITAMINS A AND D 56.7 GM TUBE TP SCH ×2 (08:58→21:22)
[2021-11-22 11:39] VITALS: BP 126/67
[2021-11-22] MEDS: DIGOXIN 0.125 MG TABLET GT SCH (13:00)
[2021-11-22 19:48] VITALS: BP 117/81
[2021-11-22] MEDS: LATANOPROST EYE DROP 0.005% 2.5 ML BOTTLE EACHEYE SCH (21:22)
[2021-11-22] MEDS: TAMSULOSIN 0.4 MG CAP.SR.24H GT SCH (21:22)
[2021-11-22] MEDS: INSULIN GLARGINE, 100 UNIT/ML CARTRIDGE SQ SCH (21:23)
[2021-11-22 23:59] VITALS: BP 128/75
[2021-11-23] MEDS: ALBUTEROL FS 2.5 MG/0.5 ML VIAL.NEB NEB SCH ×4 (01:18→20:04)
[2021-11-23] MEDS: IPRATROPIUM NEB FS 0.5 MG/2.5 ML AMPUL.NEB NEB SCH ×4 (01:18→20:04)
[2021-11-23] MEDS: GLUCERNA 1.2 1,000 ML BOTTLE GT PRN (05:21)
[2021-11-23] MEDS: LEVOTHYROXINE SODIUM 100 MCG TABLET GT SCH (05:21)
[2021-11-23] MEDS: BLOOD SUGAR DIAGNOSTIC 1 EACH STRIP IN SCH ×3 (05:21→21:21)
[2021-11-23] MEDS: INSULIN ASPART/LISPRO 100 UNIT/ML CARTRIDGE SQ PRN ×3 (05:21→21:24)
[2021-11-23 07:30] VITALS: BP 126/62
[2021-11-23] MEDS: JANUVIA 25 MG GT SCH (08:49)
[2021-11-23] MEDS: APIXABAN 2.5 MG TABLET GT SCH ×2 (08:49→17:27)
[2021-11-23] MEDS: BACLOFEN 5 MG GT SCH ×2 (08:49→17:27)
[2021-11-23] MEDS: Z GUARD REMEDY 4 OZ OINT TP SCH ×6 (08:49→21:22)
[2021-11-23] MEDS: CHOLESTYRAMINE/ASPARTAME 4 G/PKT PACKET GT SCH (08:49)
[2021-11-23] MEDS: SIROLIMUS 1 MG GT SCH (08:49)
[2021-11-23] MEDS: FERROUS SULFATE - FOR SA ONLY 330 MG/7.5 ML UDC GT SCH ×3 (08:49→17:27)
[2021-11-23] MEDS: LEVETIRACETAM 500 MG GT SCH ×2 (08:49→21:21)
[2021-11-23] MEDS: FAMOTIDINE (20 MG) 20 MG TABLET GT SCH (08:49)
[2021-11-23] MEDS: MULTIVIT W/MINERALS 1 TAB TABLET GT SCH (08:49)
[2021-11-23] MEDS: VITAMINS A AND D 56.7 GM TUBE TP SCH ×2 (08:51→21:22)
[2021-11-23] MEDS: HYDROGEN PEROXIDE 480 ML BOTTLE TP SCH ×2 (09:00→20:04)
[2021-11-23 11:41] VITALS: BP 131/74
[2021-11-23] MEDS: DIGOXIN 0.125 MG TABLET GT SCH (12:57)
[2021-11-23 19:13] VITALS: BP 127/75
[2021-11-23] MEDS: TAMSULOSIN 0.4 MG CAP.SR.24H GT SCH (21:22)
[2021-11-23] MEDS: LATANOPROST EYE DROP 0.005% 2.5 ML BOTTLE EACHEYE SCH (21:22)
[2021-11-23] MEDS: INSULIN GLARGINE, 100 UNIT/ML CARTRIDGE SQ SCH (21:23)
[2021-11-24] MEDS: ALBUTEROL FS 2.5 MG/0.5 ML VIAL.NEB NEB SCH ×4 (01:40→19:51)
[2021-11-24] MEDS: IPRATROPIUM NEB FS 0.5 MG/2.5 ML AMPUL.NEB NEB SCH ×4 (01:40→19:51)
[2021-11-24] MEDS: INSULIN ASPART/LISPRO 100 UNIT/ML CARTRIDGE SQ PRN ×2 (05:20→13:44)
[2021-11-24] MEDS: BLOOD SUGAR DIAGNOSTIC 1 EACH STRIP IN SCH ×3 (05:20→21:16)
[2021-11-24] MEDS: LEVOTHYROXINE SODIUM 100 MCG TABLET GT SCH (05:20)
[2021-11-24] MEDS: GLUCERNA 1.2 1,000 ML BOTTLE GT PRN (05:21)
[2021-11-24 07:34] VITALS: BP 128/62
[2021-11-24] MEDS: FAMOTIDINE (20 MG) 20 MG TABLET GT SCH (09:00)
[2021-11-24] MEDS: HYDROGEN PEROXIDE 480 ML BOTTLE TP SCH ×2 (09:00→20:10)
[2021-11-24] MEDS: FERROUS SULFATE - FOR SA ONLY 330 MG/7.5 ML UDC GT SCH ×3 (09:00→17:47)
[2021-11-24] MEDS: SIROLIMUS 1 MG GT SCH (09:00)
[2021-11-24] MEDS: CHOLESTYRAMINE/ASPARTAME 4 G/PKT PACKET GT SCH (09:00)
[2021-11-24] MEDS: Z GUARD REMEDY 4 OZ OINT TP SCH ×6 (09:00→21:16)
[2021-11-24] MEDS: LEVETIRACETAM 500 MG GT SCH ×2 (09:00→21:16)
[2021-11-24] MEDS: MULTIVIT W/MINERALS 1 TAB TABLET GT SCH (09:00)
[2021-11-24] MEDS: BACLOFEN 5 MG GT SCH ×2 (09:00→17:47)
[2021-11-24] MEDS: VITAMINS A AND D 56.7 GM TUBE TP SCH ×2 (09:00→21:16)
[2021-11-24] MEDS: JANUVIA 25 MG GT SCH (09:00)
[2021-11-24] MEDS: APIXABAN 2.5 MG TABLET GT SCH ×2 (09:00→17:47)
[2021-11-24 11:34] VITALS: BP 108/73
[2021-11-24] MEDS: DIGOXIN 0.125 MG TABLET GT SCH (13:43)
[2021-11-24 19:16] VITALS: BP 147/75
[2021-11-24] MEDS: INSULIN GLARGINE, 100 UNIT/ML CARTRIDGE SQ SCH (21:17)
[2021-11-24] MEDS: LATANOPROST EYE DROP 0.005% 2.5 ML BOTTLE EACHEYE SCH (21:17)
[2021-11-24] MEDS: TAMSULOSIN 0.4 MG CAP.SR.24H GT SCH (21:17)
[2021-11-25 00:39] VITALS: BP 142/76
[2021-11-25] MEDS: ALBUTEROL FS 2.5 MG/0.5 ML VIAL.NEB NEB SCH ×4 (01:06→20:17)
[2021-11-25] MEDS: IPRATROPIUM NEB FS 0.5 MG/2.5 ML AMPUL.NEB NEB SCH ×4 (01:06→20:17)
[2021-11-25] MEDS: BLOOD SUGAR DIAGNOSTIC 1 EACH STRIP IN SCH ×3 (05:42→21:25)
[2021-11-25] MEDS: GLUCERNA 1.2 1,000 ML BOTTLE GT PRN (05:43)
[2021-11-25] MEDS: LEVOTHYROXINE SODIUM 100 MCG TABLET GT SCH (05:43)
[2021-11-25] MEDS: INSULIN ASPART/LISPRO 100 UNIT/ML CARTRIDGE SQ PRN ×3 (05:44→21:29)
[2021-11-25 07:31] VITALS: BP 130/64
[2021-11-25] MEDS: HYDROGEN PEROXIDE 480 ML BOTTLE TP SCH ×2 (08:41→20:17)
[2021-11-25] MEDS: Z GUARD REMEDY 4 OZ OINT TP SCH ×6 (09:00→21:26)
[2021-11-25] MEDS: MULTIVIT W/MINERALS 1 TAB TABLET GT SCH (09:00)
[2021-11-25] MEDS: BACLOFEN 5 MG GT SCH ×2 (09:00→16:36)
[2021-11-25] MEDS: LEVETIRACETAM 500 MG GT SCH ×2 (09:00→21:25)
[2021-11-25] MEDS: APIXABAN 2.5 MG TABLET GT SCH ×2 (09:00→16:35)
[2021-11-25] MEDS: VITAMINS A AND D 56.7 GM TUBE TP SCH ×2 (09:00→21:26)
[2021-11-25] MEDS: CHOLESTYRAMINE/ASPARTAME 4 G/PKT PACKET GT SCH (09:00)
[2021-11-25] MEDS: JANUVIA 25 MG GT SCH (09:00)
[2021-11-25] MEDS: FERROUS SULFATE - FOR SA ONLY 330 MG/7.5 ML UDC GT SCH ×3 (09:00→16:36)
[2021-11-25] MEDS: FAMOTIDINE (20 MG) 20 MG TABLET GT SCH (09:00)
[2021-11-25] MEDS: SIROLIMUS 1 MG GT SCH (09:00)
--- NOTE | 2021-11-25 11:14 | NUR ---
Spoke patient's son Trevon informing this nurse that he is giving consent to administer Covid-19 vaccine booster for patient. MD Fritz notified and order given.
[2021-11-25 12:04] VITALS: BP 161/94
[2021-11-25] MEDS: DIGOXIN 0.125 MG TABLET GT SCH (13:17)
[2021-11-25] MEDS ORDERED: COVID-19 VACC,MRNA(MODERNA) 100 MCG/0.5 ML IM ONE (13:42)
--- NOTE | 2021-11-25 16:07 | NUR ---
IDT Family Invite: DELMI emailed the pt.'s son, Trevon to invite them to IDT meeting for 11/27/2021. DELMI will follow up as needed.
--- NOTE | 2021-11-25 16:29 | NUR ---
DELMI emailed the pt.'s son, Trevon at [email or web address] to provide Modernna vaccine information and link to CDC webpage for more info.
--- NOTE | 2021-11-25 17:00 | NUR ---
Covid 19 booster administered in the R deltoid, no bleeding in the site. No adverse reaction noted at this time. VS afebrile 98.3, 85, 12, 97% 125/60. Endorsed to incoming shift to monitor for reaction.
[2021-11-25 19:18] VITALS: BP 125/60
--- NOTE | 2021-11-25 21:04 | NUR ---
S/P Moderna covid-19 vaccine booster without delayed adverse reaction noted. Afebrile and vital signs WNL. No bleeding noted at injection site Right deltoid. Respiration even and unlabored without any signs of distress or SOB. Will continue to monitor. Will endorse to next shift.
[2021-11-25] MEDS: LATANOPROST EYE DROP 0.005% 2.5 ML BOTTLE EACHEYE SCH (21:26)
[2021-11-25] MEDS: TAMSULOSIN 0.4 MG CAP.SR.24H GT SCH (21:26)
[2021-11-25] MEDS: INSULIN GLARGINE, 100 UNIT/ML CARTRIDGE SQ SCH (21:28)
[2021-11-25 23:46] VITALS: BP 122/77
[2021-11-26] MEDS: GLUCERNA 1.2 1,000 ML BOTTLE GT PRN (00:21)
[2021-11-26] MEDS: IPRATROPIUM NEB FS 0.5 MG/2.5 ML AMPUL.NEB NEB SCH ×4 (02:06→20:09)
[2021-11-26] MEDS: ALBUTEROL FS 2.5 MG/0.5 ML VIAL.NEB NEB SCH ×4 (02:06→20:09)
[2021-11-26] MEDS: LEVOTHYROXINE SODIUM 100 MCG TABLET GT SCH (05:52)
[2021-11-26] MEDS: BLOOD SUGAR DIAGNOSTIC 1 EACH STRIP IN SCH ×3 (05:52→20:37)
[2021-11-26] MEDS: INSULIN ASPART/LISPRO 100 UNIT/ML CARTRIDGE SQ PRN ×3 (05:53→21:03)
[2021-11-26 07:56] LABS: BASOPHILS % (AUTO) 0.2 % (0.0-2.0); EOSINOPHILS % (AUTO) 5.2 % (0.0-6.0); HEMATOCRIT 31 % (39-51); LYMPHOCYTES # (AUTO) 1.2 K/uL (0.8-4.8); LYMPHOCYTES % (AUTO) 16.8 % (20.0-44.0); MEAN CORPUSCULAR HGB CONC 32 g/dl (31.0-36.0); MEAN CORPUSCULAR VOLUME 95 fL (80-96); MONOCYTES # (AUTO) 0.7 K/uL (0.1-1.30); MONOCYTES % (AUTO) 9.9 % (2.0-12.0); NEUTROPHILS # (AUTO) 4.7 K/uL (1.8-8.9); NEUTROPHILS % (AUTO) 67.9 % (43.0-81.0); PLATELET COUNT (AUTO) 143 K/uL (150-450); RED BLOOD CELL COUNT(AUTO) 3.26 MIL/uL (4.5-6.0); WHITE BLOOD COUNT (AUTO) 6.9 K/uL (4.3-11.0)
[2021-11-26 08:20] LABS: CARBON DIOXIDE 28 mmol/L (21-32); CHLORIDE 97 mmol/L (98-107); CREATININE 1.5 mg/dL (0.6-1.3); GLUCOSE 113 mg/dL (74-106); MAGNESIUM 2.5 mg/dL (1.8-2.4); POTASSIUM 4.5 mmol/L (3.5-5.1); SODIUM SERUM 131 mmol/L (136-145); UREA NITROGEN, BLOOD 28 mg/dL (7-18)
[2021-11-26] MEDS: CHOLESTYRAMINE/ASPARTAME 4 G/PKT PACKET GT SCH (08:43)
[2021-11-26] MEDS: APIXABAN 2.5 MG TABLET GT SCH ×2 (08:43→17:24)
[2021-11-26] MEDS: FERROUS SULFATE - FOR SA ONLY 330 MG/7.5 ML UDC GT SCH ×3 (08:43→17:24)
[2021-11-26] MEDS: FAMOTIDINE (20 MG) 20 MG TABLET GT SCH (08:43)
[2021-11-26] MEDS: MULTIVIT W/MINERALS 1 TAB TABLET GT SCH (08:43)
[2021-11-26] MEDS: SIROLIMUS 1 MG GT SCH (08:43)
[2021-11-26] MEDS: LEVETIRACETAM 500 MG GT SCH ×2 (08:43→20:36)
[2021-11-26] MEDS: Z GUARD REMEDY 4 OZ OINT TP SCH ×6 (08:43→20:37)
[2021-11-26] MEDS: BACLOFEN 5 MG GT SCH ×2 (08:43→17:24)
[2021-11-26] MEDS: VITAMINS A AND D 56.7 GM TUBE TP SCH ×2 (08:43→20:37)
[2021-11-26] MEDS: JANUVIA 25 MG GT SCH (08:43)
[2021-11-26] MEDS: HYDROGEN PEROXIDE 480 ML BOTTLE TP SCH ×2 (09:37→23:32)
[2021-11-26 12:05] VITALS: BP 104/65
[2021-11-26] MEDS: DIGOXIN 0.125 MG TABLET GT SCH (13:20)
--- NOTE | 2021-11-26 18:34 | NUR ---
No adverse reactions noted to Covid-19 vaccine booster dose.
[2021-11-26 19:08] VITALS: BP 146/72
[2021-11-26] MEDS: LATANOPROST EYE DROP 0.005% 2.5 ML BOTTLE EACHEYE SCH (21:03)
[2021-11-26] MEDS: INSULIN GLARGINE, 100 UNIT/ML CARTRIDGE SQ SCH (21:03)
[2021-11-26] MEDS: TAMSULOSIN 0.4 MG CAP.SR.24H GT SCH (21:03)
--- NOTE | 2021-11-26 21:04 | NUR ---
Pt on 2nd day monitoring for a/r s/p Covid 19 booster - pt remains afebrile with stable v/s, no resp distress and no s/sx of pain observed. Will cont to monitor and anticipate needs.
--- NOTE | 2021-11-26 21:05 | NUR ---
Pt noted with L. thumb- fingernail fungal- photo taken, area cleaned with soap and water , pat dry. Will monitor at this time and notify provider in am.
[2021-11-27 00:35] VITALS: BP 113/76
[2021-11-27] MEDS: ALBUTEROL FS 2.5 MG/0.5 ML VIAL.NEB NEB SCH ×4 (01:58→19:52)
[2021-11-27] MEDS: IPRATROPIUM NEB FS 0.5 MG/2.5 ML AMPUL.NEB NEB SCH ×4 (01:58→19:52)
[2021-11-27] MEDS: BLOOD SUGAR DIAGNOSTIC 1 EACH STRIP IN SCH ×3 (05:23→20:38)
[2021-11-27] MEDS: LEVOTHYROXINE SODIUM 100 MCG TABLET GT SCH (05:23)
[2021-11-27] MEDS: INSULIN ASPART/LISPRO 100 UNIT/ML CARTRIDGE SQ PRN ×3 (05:24→21:02)
--- NOTE | 2021-11-27 06:03 | NUR ---
Pts latest temp this morning 98.7 ( axillary) last bs : 127- no coverage given, no significant change of condition during shift, tolerated meds/ txs, no s/sx of resp distress or discomfort. Kept clean and dry. Safety and comfort measures noted. Will endorse to am oncoming nurse continuation of care and monitoring any a/r from s/p covid 19 booster rcvd the other day.
--- NOTE | 2021-11-27 08:00 | NUR ---
Received resident asleep, resp even and unlabored, with low grade fever 99.4F, no s/s of distress. S/P COVID 19 vaccine booster dose. Cooling measures done. Will continue to monitor.
[2021-11-27 08:12] VITALS: BP_SYST 140; BP_SYST 154; BP_DIAS 71; BP_DIAS 88
[2021-11-27] MEDS: HYDROGEN PEROXIDE 480 ML BOTTLE TP SCH ×2 (09:07→19:52)
[2021-11-27] MEDS: CHOLESTYRAMINE/ASPARTAME 4 G/PKT PACKET GT SCH (09:25)
[2021-11-27] MEDS: SIROLIMUS 1 MG GT SCH (09:25)
[2021-11-27] MEDS: APIXABAN 2.5 MG TABLET GT SCH ×2 (09:25→17:01)
[2021-11-27] MEDS: FERROUS SULFATE - FOR SA ONLY 330 MG/7.5 ML UDC GT SCH ×3 (09:25→17:01)
[2021-11-27] MEDS: Z GUARD REMEDY 4 OZ OINT TP SCH ×6 (09:25→20:16)
[2021-11-27] MEDS: BACLOFEN 5 MG GT SCH ×2 (09:25→17:01)
[2021-11-27] MEDS: FAMOTIDINE (20 MG) 20 MG TABLET GT SCH (09:25)
[2021-11-27] MEDS: MULTIVIT W/MINERALS 1 TAB TABLET GT SCH (09:25)
[2021-11-27] MEDS: LEVETIRACETAM 500 MG GT SCH ×2 (09:25→20:15)
[2021-11-27] MEDS: JANUVIA 25 MG GT SCH (09:25)
[2021-11-27] MEDS: VITAMINS A AND D 56.7 GM TUBE TP SCH ×2 (09:26→20:16)
--- NOTE | 2021-11-27 12:30 | NUR ---
Temp. 98. 3F, asleep, resp. even and unlabored, no s/s of resp distress. Will continue to monitor.
[2021-11-27 12:33] VITALS: BP 148/82
[2021-11-27] MEDS: DIGOXIN 0.125 MG TABLET GT SCH (12:52)
[2021-11-27] MEDS: GLUCERNA 1.2 1,000 ML BOTTLE GT PRN (15:44)
--- NOTE | 2021-11-27 16:46 | NUR ---
INTERDISCIPLINARY PLAN OF CARE CONFERENCE took place today. The patients responsible constitution party, Trevon [phone] Alicea and Interdisciplinary team discussed the plan of care in detail. Current orders as well as treatments and medications were reviewed. See team conference notes for details.
[2021-11-27 19:55] VITALS: BP 130/60
[2021-11-27] MEDS: TAMSULOSIN 0.4 MG CAP.SR.24H GT SCH (21:01)
[2021-11-27] MEDS: INSULIN GLARGINE, 100 UNIT/ML CARTRIDGE SQ SCH (21:02)
[2021-11-27] MEDS: LATANOPROST EYE DROP 0.005% 2.5 ML BOTTLE EACHEYE SCH (21:02)
[2021-11-27 23:54] VITALS: BP 134/56
[2021-11-28] MEDS: IPRATROPIUM NEB FS 0.5 MG/2.5 ML AMPUL.NEB NEB SCH ×4 (02:12→19:58)
[2021-11-28] MEDS: ALBUTEROL FS 2.5 MG/0.5 ML VIAL.NEB NEB SCH ×4 (02:12→19:58)
[2021-11-28] MEDS: INSULIN ASPART/LISPRO 100 UNIT/ML CARTRIDGE SQ PRN ×3 (05:28→21:12)
[2021-11-28] MEDS: LEVOTHYROXINE SODIUM 100 MCG TABLET GT SCH (05:28)
[2021-11-28] MEDS: BLOOD SUGAR DIAGNOSTIC 1 EACH STRIP IN SCH ×3 (05:28→21:12)
--- NOTE | 2021-11-28 05:36 | NUR ---
PATIENT RECEIVED ON TRACH TO VENT WITH SETTINGS OF AC 12, 500 Vt, 30%, +5. SUCTIONED FOR MINIMAL, THICK, YELLOW-CREAM SECRETIONS. GIVEN IN-LINE TREATMENTS WITH NO ADVERSE REACTIONS. AMBU BAG AT BEDSIDE. VENT AND PULSE OXIMETER ALARMS AUDIBLE AND VISIBLE. TRACH CARE DONE. VENT PLUGGED INTO RED OUTLET. Addendum: 11/28/21 at 0538 by JAY OVALLES RT Amended: Links added.
--- NOTE | 2021-11-28 06:16 | NUR ---
Pt slept well during shift , temp 99.0 this am, bs 114, no s/sx of resp distress or discomfort, tolerated meds/ txs, no a/r to covid booster 19 . Pt kept clean and dry, repositioned Q 2 hrs. Will endorse continuation of care and monitoring to am oncoming nurse.
[2021-11-28 07:16] VITALS: BP 107/66
[2021-11-28] MEDS: HYDROGEN PEROXIDE 480 ML BOTTLE TP SCH ×2 (08:42→19:58)
[2021-11-28] MEDS: VITAMINS A AND D 56.7 GM TUBE TP SCH ×2 (08:47→20:34)
[2021-11-28] MEDS: APIXABAN 2.5 MG TABLET GT SCH ×2 (08:47→17:07)
[2021-11-28] MEDS: Z GUARD REMEDY 4 OZ OINT TP SCH ×4 (08:47→20:34)
[2021-11-28] MEDS: JANUVIA 25 MG GT SCH (08:47)
[2021-11-28] MEDS: FAMOTIDINE (20 MG) 20 MG TABLET GT SCH (08:47)
[2021-11-28] MEDS: CHOLESTYRAMINE/ASPARTAME 4 G/PKT PACKET GT SCH (08:47)
[2021-11-28] MEDS: BACLOFEN 5 MG GT SCH ×2 (08:47→17:07)
[2021-11-28] MEDS: FERROUS SULFATE - FOR SA ONLY 330 MG/7.5 ML UDC GT SCH ×3 (08:47→17:07)
[2021-11-28] MEDS: SIROLIMUS 1 MG GT SCH (08:47)
[2021-11-28] MEDS: MULTIVIT W/MINERALS 1 TAB TABLET GT SCH (08:47)
[2021-11-28] MEDS: LEVETIRACETAM 500 MG GT SCH ×2 (08:47→20:34)
[2021-11-28 11:54] VITALS: BP 97/76
[2021-11-28] MEDS: DIGOXIN 0.125 MG TABLET GT SCH (12:16)
[2021-11-28 20:59] VITALS: BP 137/61
[2021-11-28] MEDS: TAMSULOSIN 0.4 MG CAP.SR.24H GT SCH (21:12)
[2021-11-28] MEDS: INSULIN GLARGINE, 100 UNIT/ML CARTRIDGE SQ SCH (21:12)
[2021-11-28] MEDS: LATANOPROST EYE DROP 0.005% 2.5 ML BOTTLE EACHEYE SCH (21:12)
[2021-11-29 00:37] VITALS: BP 127/56
[2021-11-29] MEDS: IPRATROPIUM NEB FS 0.5 MG/2.5 ML AMPUL.NEB NEB SCH ×4 (02:22→19:45)
[2021-11-29] MEDS: ALBUTEROL FS 2.5 MG/0.5 ML VIAL.NEB NEB SCH ×4 (02:22→19:45)
[2021-11-29] MEDS: BLOOD SUGAR DIAGNOSTIC 1 EACH STRIP IN SCH ×3 (05:22→20:31)
[2021-11-29] MEDS: INSULIN ASPART/LISPRO 100 UNIT/ML CARTRIDGE SQ PRN ×3 (05:22→20:32)
[2021-11-29] MEDS: LEVOTHYROXINE SODIUM 100 MCG TABLET GT SCH (05:22)
[2021-11-29 07:53] VITALS: BP 135/70
[2021-11-29] MEDS: HYDROGEN PEROXIDE 480 ML BOTTLE TP SCH ×2 (07:59→19:45)
[2021-11-29] MEDS: JANUVIA 25 MG GT SCH (08:25)
[2021-11-29] MEDS: FERROUS SULFATE - FOR SA ONLY 330 MG/7.5 ML UDC GT SCH ×3 (08:25→16:08)
[2021-11-29] MEDS: SIROLIMUS 1 MG GT SCH (08:25)
[2021-11-29] MEDS: MULTIVIT W/MINERALS 1 TAB TABLET GT SCH (08:25)
[2021-11-29] MEDS: FAMOTIDINE (20 MG) 20 MG TABLET GT SCH (08:25)
[2021-11-29] MEDS: CHOLESTYRAMINE/ASPARTAME 4 G/PKT PACKET GT SCH (08:25)
[2021-11-29] MEDS: APIXABAN 2.5 MG TABLET GT SCH ×2 (08:25→16:08)
[2021-11-29] MEDS: BACLOFEN 5 MG GT SCH ×2 (08:25→16:08)
[2021-11-29] MEDS: LEVETIRACETAM 500 MG GT SCH ×2 (08:25→20:17)
[2021-11-29] MEDS: VITAMINS A AND D 56.7 GM TUBE TP SCH ×2 (08:26→20:18)
[2021-11-29] MEDS: Z GUARD REMEDY 4 OZ OINT TP SCH ×4 (08:26→20:18)
[2021-11-29] MEDS: GLUCERNA 1.2 1,000 ML BOTTLE GT PRN (08:27)
[2021-11-29 11:59] VITALS: BP 135/70
[2021-11-29] MEDS: DIGOXIN 0.125 MG TABLET GT SCH (12:06)
[2021-11-29 19:09] VITALS: BP 127/76
[2021-11-29] MEDS: INSULIN GLARGINE, 100 UNIT/ML CARTRIDGE SQ SCH (21:54)
[2021-11-29] MEDS: LATANOPROST EYE DROP 0.005% 2.5 ML BOTTLE EACHEYE SCH (21:54)
[2021-11-29] MEDS: TAMSULOSIN 0.4 MG CAP.SR.24H GT SCH (21:54)
[2021-11-29 23:57] VITALS: BP 122/65
[2021-11-30] MEDS: ALBUTEROL FS 2.5 MG/0.5 ML VIAL.NEB NEB SCH ×4 (02:11→20:17)
[2021-11-30] MEDS: IPRATROPIUM NEB FS 0.5 MG/2.5 ML AMPUL.NEB NEB SCH ×4 (02:11→20:17)
[2021-11-30] MEDS: INSULIN ASPART/LISPRO 100 UNIT/ML CARTRIDGE SQ PRN ×3 (05:45→20:20)
[2021-11-30] MEDS: LEVOTHYROXINE SODIUM 100 MCG TABLET GT SCH (05:45)
[2021-11-30] MEDS: BLOOD SUGAR DIAGNOSTIC 1 EACH STRIP IN SCH ×3 (05:45→20:13)
[2021-11-30 07:50] VITALS: BP 102/58
[2021-11-30] MEDS: HYDROGEN PEROXIDE 480 ML BOTTLE TP SCH ×2 (09:00→21:09)
[2021-11-30] MEDS: BACLOFEN 5 MG GT SCH ×2 (09:33→17:18)
[2021-11-30] MEDS: SIROLIMUS 1 MG GT SCH (09:33)
[2021-11-30] MEDS: LEVETIRACETAM 500 MG GT SCH ×2 (09:33→20:13)
[2021-11-30] MEDS: APIXABAN 2.5 MG TABLET GT SCH ×2 (09:33→17:18)
[2021-11-30] MEDS: FAMOTIDINE (20 MG) 20 MG TABLET GT SCH (09:33)
[2021-11-30] MEDS: JANUVIA 25 MG GT SCH (09:33)
[2021-11-30] MEDS: Z GUARD REMEDY 4 OZ OINT TP SCH ×4 (09:33→20:14)
[2021-11-30] MEDS: CHOLESTYRAMINE/ASPARTAME 4 G/PKT PACKET GT SCH (09:33)
[2021-11-30] MEDS: FERROUS SULFATE - FOR SA ONLY 330 MG/7.5 ML UDC GT SCH ×3 (09:33→17:18)
[2021-11-30] MEDS: MULTIVIT W/MINERALS 1 TAB TABLET GT SCH (09:33)
[2021-11-30] MEDS: VITAMINS A AND D 56.7 GM TUBE TP SCH ×2 (09:34→20:14)
[2021-11-30] MEDS: GLUCERNA 1.2 1,000 ML BOTTLE GT PRN (10:00)
[2021-11-30] MEDS: DIGOXIN 0.125 MG TABLET GT SCH (12:38)
[2021-11-30 13:17] VITALS: BP 122/46
[2021-11-30 19:58] VITALS: BP 130/68
[2021-11-30 20:00] VITALS: BP_SYST 130; BP_SYST 137; BP_DIAS 68; BP_DIAS 85
[2021-11-30] MEDS: LATANOPROST EYE DROP 0.005% 2.5 ML BOTTLE EACHEYE SCH (21:17)
[2021-11-30] MEDS: TAMSULOSIN 0.4 MG CAP.SR.24H GT SCH (21:17)
[2021-11-30] MEDS: INSULIN GLARGINE, 100 UNIT/ML CARTRIDGE SQ SCH (21:17)
[2021-12-01 00:53] VITALS: BP 129/63
[2021-12-01] MEDS: IPRATROPIUM NEB FS 0.5 MG/2.5 ML AMPUL.NEB NEB SCH ×4 (01:48→20:00)
[2021-12-01] MEDS: ALBUTEROL FS 2.5 MG/0.5 ML VIAL.NEB NEB SCH ×4 (01:48→20:00)
[2021-12-01] MEDS: INSULIN ASPART/LISPRO 100 UNIT/ML CARTRIDGE SQ PRN ×3 (05:46→20:22)
[2021-12-01] MEDS: BLOOD SUGAR DIAGNOSTIC 1 EACH STRIP IN SCH ×3 (05:46→20:13)
[2021-12-01] MEDS: LEVOTHYROXINE SODIUM 100 MCG TABLET GT SCH (05:46)
[2021-12-01] MEDS: GLUCERNA 1.2 1,000 ML BOTTLE GT PRN (06:20)
[2021-12-01 07:13] VITALS: BP 138/75
[2021-12-01] MEDS: HYDROGEN PEROXIDE 480 ML BOTTLE TP SCH ×2 (08:09→21:25)
[2021-12-01] MEDS: APIXABAN 2.5 MG TABLET GT SCH ×2 (08:48→17:25)
[2021-12-01] MEDS: SIROLIMUS 1 MG GT SCH (08:49)
[2021-12-01] MEDS: LEVETIRACETAM 500 MG GT SCH ×2 (08:49→20:12)
[2021-12-01] MEDS: FAMOTIDINE (20 MG) 20 MG TABLET GT SCH (08:49)
[2021-12-01] MEDS: CHOLESTYRAMINE/ASPARTAME 4 G/PKT PACKET GT SCH (08:49)
[2021-12-01] MEDS: BACLOFEN 5 MG GT SCH ×2 (08:49→17:25)
[2021-12-01] MEDS: MULTIVIT W/MINERALS 1 TAB TABLET GT SCH (08:49)
[2021-12-01] MEDS: FERROUS SULFATE - FOR SA ONLY 330 MG/7.5 ML UDC GT SCH ×3 (08:49→17:25)
[2021-12-01] MEDS: JANUVIA 25 MG GT SCH (08:49)
[2021-12-01] MEDS: Z GUARD REMEDY 4 OZ OINT TP SCH ×4 (08:50→20:13)
[2021-12-01] MEDS: VITAMINS A AND D 56.7 GM TUBE TP SCH ×2 (08:50→20:13)
[2021-12-01 12:00] VITALS: BP 127/64
[2021-12-01] MEDS: DIGOXIN 0.125 MG TABLET GT SCH (13:01)
--- NOTE | 2021-12-01 14:26 | NUR ---
Monthly progress notes.Resident is alert but unable to verbalize his needs. Engaged in watching Salvadorean programs and he seems to like it.He received daily visits for sensory stimulation, music, hand massage, reality orientation, audio tapes.These activities will be provided as needed.
[2021-12-01 20:10] VITALS: BP 150/68
[2021-12-01] MEDS: TAMSULOSIN 0.4 MG CAP.SR.24H GT SCH (22:15)
[2021-12-01] MEDS: LATANOPROST EYE DROP 0.005% 2.5 ML BOTTLE EACHEYE SCH (22:15)
[2021-12-01] MEDS: INSULIN GLARGINE, 100 UNIT/ML CARTRIDGE SQ SCH (22:16)
[2021-12-02] MEDS: IPRATROPIUM NEB FS 0.5 MG/2.5 ML AMPUL.NEB NEB SCH ×4 (01:47→19:41)
[2021-12-02] MEDS: ALBUTEROL FS 2.5 MG/0.5 ML VIAL.NEB NEB SCH ×4 (01:47→19:41)
[2021-12-02] MEDS: GLUCERNA 1.2 1,000 ML BOTTLE GT PRN (03:54)
[2021-12-02] MEDS: BLOOD SUGAR DIAGNOSTIC 1 EACH STRIP IN SCH ×3 (05:18→21:22)
[2021-12-02] MEDS: INSULIN ASPART/LISPRO 100 UNIT/ML CARTRIDGE SQ PRN ×3 (05:18→21:24)
[2021-12-02] MEDS: LEVOTHYROXINE SODIUM 100 MCG TABLET GT SCH (05:18)
[2021-12-02 08:00] VITALS: BP 121/51
[2021-12-02] MEDS: HYDROGEN PEROXIDE 480 ML BOTTLE TP SCH ×2 (09:26→21:23)
[2021-12-02] MEDS: FERROUS SULFATE - FOR SA ONLY 330 MG/7.5 ML UDC GT SCH ×3 (09:43→16:39)
[2021-12-02] MEDS: JANUVIA 25 MG GT SCH (09:43)
[2021-12-02] MEDS: APIXABAN 2.5 MG TABLET GT SCH ×2 (09:43→16:39)
[2021-12-02] MEDS: FAMOTIDINE (20 MG) 20 MG TABLET GT SCH (09:44)
[2021-12-02] MEDS: Z GUARD REMEDY 4 OZ OINT TP SCH ×4 (09:44→21:09)
[2021-12-02] MEDS: VITAMINS A AND D 56.7 GM TUBE TP SCH ×2 (09:44→21:09)
[2021-12-02] MEDS: CHOLESTYRAMINE/ASPARTAME 4 G/PKT PACKET GT SCH (09:44)
[2021-12-02] MEDS: LEVETIRACETAM 500 MG GT SCH ×2 (09:44→21:09)
[2021-12-02] MEDS: MULTIVIT W/MINERALS 1 TAB TABLET GT SCH (09:44)
[2021-12-02] MEDS: BACLOFEN 5 MG GT SCH ×2 (09:44→16:39)
[2021-12-02] MEDS: SIROLIMUS 1 MG GT SCH (09:44)
[2021-12-02 11:17] VITALS: BP 120/86
[2021-12-02] MEDS: DIGOXIN 0.125 MG TABLET GT SCH (13:40)
--- NOTE | 2021-12-02 16:48 | NUR ---
Facility Update: DELMI notified family that: "A [employer] employee tested positive for COVID today. Residents and staff will continue receiving response testing as outlined by [facility] Department of Public Health. [facility] will continue to implement [facility] infection control protocols and continue screening employees before every shift. [facility] continues to follow infection control protocols and screen our residents and staff daily for symptoms. It is anticipated that in the near future, visitors who show proof they are up to date (up to date means fully vaccinated an received a booster dose or fully vaccinated but not yet booster-eligible) on their COVID-19 vaccinations will not be required to provide proof of a negative test result prior to indoor visitation, because of this we are encouraging [employer] families to get vaccinated and receive a booster if eligible".
[2021-12-02 19:42] VITALS: BP 161/60
[2021-12-02] MEDS: TAMSULOSIN 0.4 MG CAP.SR.24H GT SCH (21:10)
[2021-12-02] MEDS: LATANOPROST EYE DROP 0.005% 2.5 ML BOTTLE EACHEYE SCH (21:10)
[2021-12-02] MEDS: INSULIN GLARGINE, 100 UNIT/ML CARTRIDGE SQ SCH (21:23)
[2021-12-03 00:06] VITALS: BP 153/69
[2021-12-03] MEDS: ALBUTEROL FS 2.5 MG/0.5 ML VIAL.NEB NEB SCH ×4 (01:40→19:35)
[2021-12-03] MEDS: IPRATROPIUM NEB FS 0.5 MG/2.5 ML AMPUL.NEB NEB SCH ×4 (01:40→19:35)
[2021-12-03] MEDS: GUAIFENESIN 300 MG/15 ML UDC GT PRN (01:57)
[2021-12-03] MEDS: BLOOD SUGAR DIAGNOSTIC 1 EACH STRIP IN SCH ×3 (05:31→21:05)
[2021-12-03] MEDS: LEVOTHYROXINE SODIUM 100 MCG TABLET GT SCH (05:31)
[2021-12-03] MEDS: INSULIN ASPART/LISPRO 100 UNIT/ML CARTRIDGE SQ PRN ×3 (05:32→21:06)
[2021-12-03 07:10] VITALS: BP 146/83
[2021-12-03 07:21] LABS: BASOPHILS % (AUTO) 0.3 % (0.0-2.0); EOSINOPHILS % (AUTO) 4.8 % (0.0-6.0); HEMATOCRIT 33 % (39-51); HEMOGLOBIN 10.8 g/dL (13.5-17.5); LYMPHOCYTES # (AUTO) 1.1 K/uL (0.8-4.8); LYMPHOCYTES % (AUTO) 16.9 % (20.0-44.0); MEAN CORPUSCULAR HGB CONC 32 g/dl (31.0-36.0); MEAN CORPUSCULAR VOLUME 93 fL (80-96); MONOCYTES # (AUTO) 0.5 K/uL (0.1-1.30); MONOCYTES % (AUTO) 7.5 % (2.0-12.0); NEUTROPHILS # (AUTO) 4.8 K/uL (1.8-8.9); NEUTROPHILS % (AUTO) 70.5 % (43.0-81.0); PLATELET COUNT (AUTO) 130 K/uL (150-450); RED BLOOD CELL COUNT(AUTO) 3.57 MIL/uL (4.5-6.0); WHITE BLOOD COUNT (AUTO) 6.8 K/uL (4.3-11.0)
[2021-12-03 08:01] LABS: CALCIUM, SERUM 9.6 mg/dL (8.5-10.1); CREATININE 1.2 mg/dL (0.6-1.3); MAGNESIUM 2.5 mg/dL (1.8-2.4); PHOSPHORUS 4.2 mg/dL (2.5-4.9); POTASSIUM 4.4 mmol/L (3.5-5.1)
[2021-12-03] MEDS: HYDROGEN PEROXIDE 480 ML BOTTLE TP SCH ×2 (08:27→19:35)
[2021-12-03] MEDS: Z GUARD REMEDY 4 OZ OINT TP SCH ×4 (09:00→21:05)
[2021-12-03] MEDS: JANUVIA 25 MG GT SCH (09:00)
[2021-12-03] MEDS: FAMOTIDINE (20 MG) 20 MG TABLET GT SCH (09:00)
[2021-12-03] MEDS: FERROUS SULFATE - FOR SA ONLY 330 MG/7.5 ML UDC GT SCH ×3 (09:00→17:18)
[2021-12-03] MEDS: CHOLESTYRAMINE/ASPARTAME 4 G/PKT PACKET GT SCH (09:00)
[2021-12-03] MEDS: APIXABAN 2.5 MG TABLET GT SCH ×2 (09:00→17:18)
[2021-12-03] MEDS: VITAMINS A AND D 56.7 GM TUBE TP SCH ×2 (09:00→21:06)
[2021-12-03] MEDS: BACLOFEN 5 MG GT SCH ×2 (09:00→17:18)
[2021-12-03] MEDS: LEVETIRACETAM 500 MG GT SCH ×2 (09:00→21:05)
[2021-12-03] MEDS: SIROLIMUS 1 MG GT SCH (09:00)
[2021-12-03] MEDS: MULTIVIT W/MINERALS 1 TAB TABLET GT SCH (09:00)
[2021-12-03 11:51] VITALS: BP 129/100
[2021-12-03] MEDS: DIGOXIN 0.125 MG TABLET GT SCH (12:29)
[2021-12-03] MEDS: GLUCERNA 1.2 1,000 ML BOTTLE GT PRN (17:20)
[2021-12-03 19:27] VITALS: BP 133/71
[2021-12-03] MEDS: LATANOPROST EYE DROP 0.005% 2.5 ML BOTTLE EACHEYE SCH (21:06)
[2021-12-03] MEDS: INSULIN GLARGINE, 100 UNIT/ML CARTRIDGE SQ SCH (21:06)
[2021-12-03] MEDS: TAMSULOSIN 0.4 MG CAP.SR.24H GT SCH (21:06)
[2021-12-04 00:04] VITALS: BP 155/86
[2021-12-04] MEDS: ALBUTEROL FS 2.5 MG/0.5 ML VIAL.NEB NEB SCH ×4 (02:02→20:05)
[2021-12-04] MEDS: IPRATROPIUM NEB FS 0.5 MG/2.5 ML AMPUL.NEB NEB SCH ×4 (02:02→20:05)
[2021-12-04] MEDS: BLOOD SUGAR DIAGNOSTIC 1 EACH STRIP IN SCH ×3 (05:12→20:20)
[2021-12-04] MEDS: LEVOTHYROXINE SODIUM 100 MCG TABLET GT SCH (05:12)
[2021-12-04] MEDS: INSULIN ASPART/LISPRO 100 UNIT/ML CARTRIDGE SQ PRN ×2 (05:13→12:39)
--- NOTE | 2021-12-04 05:32 | NUR ---
PATIENT RECEIVED ON TRACH TO VENT WITH SETTINGS OF AC 12, 500 Vt, 30%, +5. SUCTIONED FOR MINIMAL, THIN, WHITE-CREAM SECRETIONS. GIVEN IN-LINE TREATMENTS WITH NO ADVERSE REACTIONS. AMBU BAG AT BEDSIDE. VENT AND PULSE OXIMETER ALARMS AUDIBLE AND VISIBLE. TRACH CARE DONE Addendum: 12/04/21 at 0533 by JAY OVALLES RT Amended: Links added.
[2021-12-04 07:09] VITALS: BP 135/67
[2021-12-04] MEDS: HYDROGEN PEROXIDE 480 ML BOTTLE TP SCH ×2 (09:26→20:05)
[2021-12-04] MEDS: MULTIVIT W/MINERALS 1 TAB TABLET GT SCH (09:44)
[2021-12-04] MEDS: BACLOFEN 5 MG GT SCH ×2 (09:44→17:38)
[2021-12-04] MEDS: LEVETIRACETAM 500 MG GT SCH ×2 (09:44→20:14)
[2021-12-04] MEDS: FAMOTIDINE (20 MG) 20 MG TABLET GT SCH (09:44)
[2021-12-04] MEDS: APIXABAN 2.5 MG TABLET GT SCH ×2 (09:44→17:38)
[2021-12-04] MEDS: JANUVIA 25 MG GT SCH (09:44)
[2021-12-04] MEDS: FERROUS SULFATE - FOR SA ONLY 330 MG/7.5 ML UDC GT SCH ×3 (09:44→17:38)
[2021-12-04] MEDS: Z GUARD REMEDY 4 OZ OINT TP SCH ×4 (09:44→20:14)
[2021-12-04] MEDS: VITAMINS A AND D 56.7 GM TUBE TP SCH ×2 (09:44→20:15)
[2021-12-04] MEDS: CHOLESTYRAMINE/ASPARTAME 4 G/PKT PACKET GT SCH (09:44)
[2021-12-04] MEDS: SIROLIMUS 1 MG GT SCH (09:44)
[2021-12-04 11:55] VITALS: BP 138/93
[2021-12-04] MEDS: GLUCERNA 1.2 1,000 ML BOTTLE GT PRN (11:59)
[2021-12-04] MEDS: DIGOXIN 0.125 MG TABLET GT SCH (12:14)
[2021-12-04 19:07] VITALS: BP 147/60
[2021-12-04] MEDS: TAMSULOSIN 0.4 MG CAP.SR.24H GT SCH (21:04)
[2021-12-04] MEDS: LATANOPROST EYE DROP 0.005% 2.5 ML BOTTLE EACHEYE SCH (21:04)
[2021-12-04] MEDS: INSULIN GLARGINE, 100 UNIT/ML CARTRIDGE SQ SCH (21:05)
[2021-12-04 23:45] VITALS: BP 153/83
[2021-12-05] MEDS: IPRATROPIUM NEB FS 0.5 MG/2.5 ML AMPUL.NEB NEB SCH ×4 (00:44→18:57)
[2021-12-05] MEDS: ALBUTEROL FS 2.5 MG/0.5 ML VIAL.NEB NEB SCH ×4 (00:44→18:57)
[2021-12-05] MEDS: LEVOTHYROXINE SODIUM 100 MCG TABLET GT SCH (05:23)
[2021-12-05] MEDS: BLOOD SUGAR DIAGNOSTIC 1 EACH STRIP IN SCH ×3 (05:23→21:13)
[2021-12-05] MEDS: INSULIN ASPART/LISPRO 100 UNIT/ML CARTRIDGE SQ PRN ×2 (05:23→12:31)
[2021-12-05 07:18] VITALS: BP 129/73
[2021-12-05] MEDS: HYDROGEN PEROXIDE 480 ML BOTTLE TP SCH ×2 (07:58→20:02)
[2021-12-05] MEDS: FERROUS SULFATE - FOR SA ONLY 330 MG/7.5 ML UDC GT SCH ×3 (08:55→16:34)
[2021-12-05] MEDS: APIXABAN 2.5 MG TABLET GT SCH ×2 (08:55→16:34)
[2021-12-05] MEDS: FAMOTIDINE (20 MG) 20 MG TABLET GT SCH (08:56)
[2021-12-05] MEDS: JANUVIA 25 MG GT SCH (08:56)
[2021-12-05] MEDS: SIROLIMUS 1 MG GT SCH (08:56)
[2021-12-05] MEDS: LEVETIRACETAM 500 MG GT SCH ×2 (08:56→21:13)
[2021-12-05] MEDS: BACLOFEN 5 MG GT SCH ×2 (08:56→16:34)
[2021-12-05] MEDS: Z GUARD REMEDY 4 OZ OINT TP SCH ×4 (08:56→21:14)
[2021-12-05] MEDS: VITAMINS A AND D 56.7 GM TUBE TP SCH ×2 (08:56→21:13)
[2021-12-05] MEDS: CHOLESTYRAMINE/ASPARTAME 4 G/PKT PACKET GT SCH (08:56)
[2021-12-05] MEDS: MULTIVIT W/MINERALS 1 TAB TABLET GT SCH (08:56)
[2021-12-05] MEDS: GLUCERNA 1.2 1,000 ML BOTTLE GT PRN (11:41)
[2021-12-05 12:17] VITALS: BP 130/82
[2021-12-05] MEDS: DIGOXIN 0.125 MG TABLET GT SCH (12:29)
--- NOTE | 2021-12-05 12:31 | NUR ---
Virtual rounds done with Nadine Taylor GOVERNMENT INSTRUCTOR today. Pt had trach change done today. No additional order given.
[2021-12-05 19:11] VITALS: BP 145/78
--- NOTE | 2021-12-05 21:15 | NUR ---
RN NOTES: BS-121 NO INSULIN PER SLIDING SCALE
[2021-12-05 22:00] VITALS: BP 145/78
[2021-12-05] MEDS: LATANOPROST EYE DROP 0.005% 2.5 ML BOTTLE EACHEYE SCH (22:00)
[2021-12-05] MEDS: TAMSULOSIN 0.4 MG CAP.SR.24H GT SCH (22:00)
[2021-12-05] MEDS: INSULIN GLARGINE, 100 UNIT/ML CARTRIDGE SQ SCH (22:00)
[2021-12-05 23:50] VITALS: BP 152/89
[2021-12-06] MEDS: ALBUTEROL FS 2.5 MG/0.5 ML VIAL.NEB NEB SCH ×4 (01:22→19:46)
[2021-12-06] MEDS: IPRATROPIUM NEB FS 0.5 MG/2.5 ML AMPUL.NEB NEB SCH ×4 (01:22→19:46)
[2021-12-06] MEDS: BLOOD SUGAR DIAGNOSTIC 1 EACH STRIP IN SCH ×3 (05:00→21:32)
[2021-12-06] MEDS: GLUCERNA 1.2 1,000 ML BOTTLE GT PRN (05:19)
--- NOTE | 2021-12-06 05:36 | NUR ---
RN NOTES BS-124 NO INSULIN GIVEN OUT OF PARAMETER
[2021-12-06] MEDS: LEVOTHYROXINE SODIUM 100 MCG TABLET GT SCH (06:00)
[2021-12-06 07:45] VITALS: BP 125/85
[2021-12-06] MEDS: SIROLIMUS 1 MG GT SCH (09:00)
[2021-12-06] MEDS: HYDROGEN PEROXIDE 480 ML BOTTLE TP SCH ×2 (09:00→21:00)
[2021-12-06] MEDS: FAMOTIDINE (20 MG) 20 MG TABLET GT SCH (09:00)
[2021-12-06] MEDS: MULTIVIT W/MINERALS 1 TAB TABLET GT SCH (09:00)
[2021-12-06] MEDS: FERROUS SULFATE - FOR SA ONLY 330 MG/7.5 ML UDC GT SCH ×3 (09:00→16:49)
[2021-12-06] MEDS: APIXABAN 2.5 MG TABLET GT SCH ×2 (09:00→16:49)
[2021-12-06] MEDS: JANUVIA 25 MG GT SCH (09:00)
[2021-12-06] MEDS: LEVETIRACETAM 500 MG GT SCH ×2 (09:00→21:32)
[2021-12-06] MEDS: Z GUARD REMEDY 4 OZ OINT TP SCH ×2 (09:00→21:32)
[2021-12-06] MEDS: BACLOFEN 5 MG GT SCH ×2 (09:00→16:49)
[2021-12-06] MEDS: CHOLESTYRAMINE/ASPARTAME 4 G/PKT PACKET GT SCH (09:00)
[2021-12-06] MEDS: DIGOXIN 0.125 MG TABLET GT SCH (13:13)
[2021-12-06] MEDS ORDERED: TUBERCULIN,PURIF.PROT.DERIV. 5 TU/0.1 ML VIAL ID SCH (14:30)
[2021-12-06] MEDS: TAMSULOSIN 0.4 MG CAP.SR.24H GT SCH (21:32)
[2021-12-06] MEDS: LATANOPROST EYE DROP 0.005% 2.5 ML BOTTLE EACHEYE SCH (21:32)
[2021-12-06] MEDS: INSULIN GLARGINE, 100 UNIT/ML CARTRIDGE SQ SCH (21:33)
[2021-12-06 22:00] VITALS: BP_SYST 124; BP_SYST 134; BP_DIAS 71; BP_DIAS 77
[2021-12-07] MEDS: IPRATROPIUM NEB FS 0.5 MG/2.5 ML AMPUL.NEB NEB SCH ×4 (00:56→19:56)
[2021-12-07] MEDS: ALBUTEROL FS 2.5 MG/0.5 ML VIAL.NEB NEB SCH ×4 (00:56→19:56)
[2021-12-07 01:01] VITALS: BP 136/81
[2021-12-07] MEDS: BLOOD SUGAR DIAGNOSTIC 1 EACH STRIP IN SCH ×3 (05:32→20:14)
[2021-12-07] MEDS: LEVOTHYROXINE SODIUM 100 MCG TABLET GT SCH (05:32)
[2021-12-07 07:12] VITALS: BP 127/73
[2021-12-07] MEDS: HYDROGEN PEROXIDE 480 ML BOTTLE TP SCH ×2 (08:00→21:13)
[2021-12-07] MEDS: Z GUARD REMEDY 4 OZ OINT TP SCH ×2 (09:02→20:14)
[2021-12-07] MEDS: LEVETIRACETAM 500 MG GT SCH ×2 (09:02→20:14)
[2021-12-07] MEDS: CHOLESTYRAMINE/ASPARTAME 4 G/PKT PACKET GT SCH (09:02)
[2021-12-07] MEDS: FAMOTIDINE (20 MG) 20 MG TABLET GT SCH (09:02)
[2021-12-07] MEDS: FERROUS SULFATE - FOR SA ONLY 330 MG/7.5 ML UDC GT SCH ×3 (09:02→16:51)
[2021-12-07] MEDS: BACLOFEN 5 MG GT SCH ×2 (09:02→16:51)
[2021-12-07] MEDS: SIROLIMUS 1 MG GT SCH (09:02)
[2021-12-07] MEDS: MULTIVIT W/MINERALS 1 TAB TABLET GT SCH (09:02)
[2021-12-07] MEDS: JANUVIA 25 MG GT SCH (09:02)
[2021-12-07] MEDS: APIXABAN 2.5 MG TABLET GT SCH ×2 (09:02→16:51)
[2021-12-07 11:54] VITALS: BP 137/73
[2021-12-07] MEDS: DIGOXIN 0.125 MG TABLET GT SCH (12:54)
[2021-12-07] MEDS: INSULIN ASPART/LISPRO 100 UNIT/ML CARTRIDGE SQ PRN ×2 (13:15→20:15)
[2021-12-07 19:27] VITALS: BP 133/65
[2021-12-07] MEDS: TAMSULOSIN 0.4 MG CAP.SR.24H GT SCH (21:16)
[2021-12-07] MEDS: LATANOPROST EYE DROP 0.005% 2.5 ML BOTTLE EACHEYE SCH (21:16)
[2021-12-07] MEDS: INSULIN GLARGINE, 100 UNIT/ML CARTRIDGE SQ SCH (21:17)
[2021-12-07 23:47] VITALS: BP 119/60
[2021-12-08] MEDS: IPRATROPIUM NEB FS 0.5 MG/2.5 ML AMPUL.NEB NEB SCH ×4 (01:56→20:03)
[2021-12-08] MEDS: ALBUTEROL FS 2.5 MG/0.5 ML VIAL.NEB NEB SCH ×4 (01:56→20:03)
[2021-12-08] MEDS: GLUCERNA 1.2 1,000 ML BOTTLE GT PRN (03:51)
[2021-12-08] MEDS: INSULIN ASPART/LISPRO 100 UNIT/ML CARTRIDGE SQ PRN ×2 (05:18→12:18)
[2021-12-08] MEDS: LEVOTHYROXINE SODIUM 100 MCG TABLET GT SCH (05:18)
[2021-12-08] MEDS: BLOOD SUGAR DIAGNOSTIC 1 EACH STRIP IN SCH ×3 (05:18→21:40)
[2021-12-08 07:14] VITALS: BP 141/62
[2021-12-08] MEDS: JANUVIA 25 MG GT SCH (08:44)
[2021-12-08] MEDS: FERROUS SULFATE - FOR SA ONLY 330 MG/7.5 ML UDC GT SCH ×3 (08:44→16:16)
[2021-12-08] MEDS: MULTIVIT W/MINERALS 1 TAB TABLET GT SCH (08:45)
[2021-12-08] MEDS: LEVETIRACETAM 500 MG GT SCH ×2 (08:45→21:40)
[2021-12-08] MEDS: SIROLIMUS 1 MG GT SCH (08:45)
[2021-12-08] MEDS: Z GUARD REMEDY 4 OZ OINT TP SCH ×2 (08:45→21:40)
[2021-12-08] MEDS: CHOLESTYRAMINE/ASPARTAME 4 G/PKT PACKET GT SCH (08:45)
[2021-12-08] MEDS: HYDROGEN PEROXIDE 480 ML BOTTLE TP SCH ×2 (08:45→21:23)
[2021-12-08] MEDS: BACLOFEN 5 MG GT SCH ×2 (08:45→16:16)
[2021-12-08] MEDS: FAMOTIDINE (20 MG) 20 MG TABLET GT SCH (08:45)
[2021-12-08] MEDS: APIXABAN 2.5 MG TABLET GT SCH ×2 (08:58→16:16)
[2021-12-08 10:41] VITALS: BP 141/62
[2021-12-08] MEDS: DIGOXIN 0.125 MG TABLET GT SCH (12:07)
[2021-12-08 12:40] VITALS: BP 138/55
[2021-12-08 19:17] VITALS: BP 143/76
[2021-12-08] MEDS: TAMSULOSIN 0.4 MG CAP.SR.24H GT SCH (21:40)
[2021-12-08] MEDS: LATANOPROST EYE DROP 0.005% 2.5 ML BOTTLE EACHEYE SCH (21:40)
[2021-12-08] MEDS: INSULIN GLARGINE, 100 UNIT/ML CARTRIDGE SQ SCH (21:41)
[2021-12-09] MEDS: IPRATROPIUM NEB FS 0.5 MG/2.5 ML AMPUL.NEB NEB SCH ×4 (01:43→19:52)
[2021-12-09] MEDS: ALBUTEROL FS 2.5 MG/0.5 ML VIAL.NEB NEB SCH ×4 (01:43→19:52)
[2021-12-09] MEDS: BLOOD SUGAR DIAGNOSTIC 1 EACH STRIP IN SCH ×3 (05:00→21:13)
[2021-12-09] MEDS: LEVOTHYROXINE SODIUM 100 MCG TABLET GT SCH (06:07)
[2021-12-09] MEDS: INSULIN ASPART/LISPRO 100 UNIT/ML CARTRIDGE SQ PRN ×2 (06:08→21:15)
[2021-12-09 07:48] VITALS: BP 153/68
[2021-12-09] MEDS: HYDROGEN PEROXIDE 480 ML BOTTLE TP SCH ×2 (08:43→19:52)
[2021-12-09] MEDS: MULTIVIT W/MINERALS 1 TAB TABLET GT SCH (09:17)
[2021-12-09] MEDS: CHOLESTYRAMINE/ASPARTAME 4 G/PKT PACKET GT SCH (09:17)
[2021-12-09] MEDS: LEVETIRACETAM 500 MG GT SCH ×2 (09:17→21:13)
[2021-12-09] MEDS: APIXABAN 2.5 MG TABLET GT SCH ×2 (09:17→17:15)
[2021-12-09] MEDS: SIROLIMUS 1 MG GT SCH (09:17)
[2021-12-09] MEDS: BACLOFEN 5 MG GT SCH ×2 (09:17→17:16)
[2021-12-09] MEDS: FAMOTIDINE (20 MG) 20 MG TABLET GT SCH (09:17)
[2021-12-09] MEDS: FERROUS SULFATE - FOR SA ONLY 330 MG/7.5 ML UDC GT SCH ×3 (09:17→17:16)
[2021-12-09] MEDS: JANUVIA 25 MG GT SCH (09:17)
[2021-12-09] MEDS: Z GUARD REMEDY 4 OZ OINT TP SCH ×2 (09:46→21:13)
--- NOTE | 2021-12-09 11:09 | NUR ---
Dental Exam: Dr. Pizarro completed dental exam with pt. on 10/02/2021 and his notes state: a) Heavy plaque, calculus, b) Diagnosis: advanced gingivitis. c) Assessment: unable to provide safe dental treatment due to medical condition. Increased chance of aspiration following dental care.
[2021-12-09 12:21] VITALS: BP 158/75
[2021-12-09] MEDS: DIGOXIN 0.125 MG TABLET GT SCH (13:00)
[2021-12-09] MEDS: GLUCERNA 1.2 1,000 ML BOTTLE GT PRN (14:50)
[2021-12-09 20:10] VITALS: BP 141/82
[2021-12-09] MEDS: LATANOPROST EYE DROP 0.005% 2.5 ML BOTTLE EACHEYE SCH (21:13)
[2021-12-09] MEDS: TAMSULOSIN 0.4 MG CAP.SR.24H GT SCH (21:13)
[2021-12-09] MEDS: INSULIN GLARGINE, 100 UNIT/ML CARTRIDGE SQ SCH (21:14)
[2021-12-10] MEDS: ALBUTEROL FS 2.5 MG/0.5 ML VIAL.NEB NEB SCH ×4 (01:27→20:05)
[2021-12-10] MEDS: IPRATROPIUM NEB FS 0.5 MG/2.5 ML AMPUL.NEB NEB SCH ×4 (01:27→20:05)
[2021-12-10] MEDS: BLOOD SUGAR DIAGNOSTIC 1 EACH STRIP IN SCH ×3 (05:31→20:51)
[2021-12-10] MEDS: LEVOTHYROXINE SODIUM 100 MCG TABLET GT SCH (05:31)
[2021-12-10] MEDS: INSULIN ASPART/LISPRO 100 UNIT/ML CARTRIDGE SQ PRN ×3 (05:32→21:09)
[2021-12-10] MEDS: GLUCERNA 1.2 1,000 ML BOTTLE GT PRN (05:32)
[2021-12-10 07:34] VITALS: BP 148/80
[2021-12-10] MEDS: HYDROGEN PEROXIDE 480 ML BOTTLE TP SCH ×2 (09:00→20:05)
[2021-12-10] MEDS: SIROLIMUS 1 MG GT SCH (09:52)
[2021-12-10] MEDS: MULTIVIT W/MINERALS 1 TAB TABLET GT SCH (09:52)
[2021-12-10] MEDS: BACLOFEN 5 MG GT SCH ×2 (09:52→17:00)
[2021-12-10] MEDS: JANUVIA 25 MG GT SCH (09:52)
[2021-12-10] MEDS: FAMOTIDINE (20 MG) 20 MG TABLET GT SCH (09:52)
[2021-12-10] MEDS: CHOLESTYRAMINE/ASPARTAME 4 G/PKT PACKET GT SCH (09:52)
[2021-12-10] MEDS: APIXABAN 2.5 MG TABLET GT SCH ×2 (09:52→17:00)
[2021-12-10] MEDS: LEVETIRACETAM 500 MG GT SCH ×2 (09:52→20:51)
[2021-12-10] MEDS: FERROUS SULFATE - FOR SA ONLY 330 MG/7.5 ML UDC GT SCH ×3 (09:52→17:00)
[2021-12-10] MEDS: Z GUARD REMEDY 4 OZ OINT TP SCH ×2 (09:53→20:51)
[2021-12-10 12:14] VITALS: BP 135/77
[2021-12-10] MEDS: DIGOXIN 0.125 MG TABLET GT SCH (12:48)
[2021-12-10 19:07] VITALS: BP 152/62
[2021-12-10] MEDS: LATANOPROST EYE DROP 0.005% 2.5 ML BOTTLE EACHEYE SCH (21:08)
[2021-12-10] MEDS: INSULIN GLARGINE, 100 UNIT/ML CARTRIDGE SQ SCH (21:08)
[2021-12-10] MEDS: TAMSULOSIN 0.4 MG CAP.SR.24H GT SCH (21:08)
[2021-12-10 23:50] VITALS: BP 154/66
[2021-12-11] MEDS: ALBUTEROL FS 2.5 MG/0.5 ML VIAL.NEB NEB SCH ×4 (01:58→20:20)
[2021-12-11] MEDS: IPRATROPIUM NEB FS 0.5 MG/2.5 ML AMPUL.NEB NEB SCH ×4 (01:58→20:20)
[2021-12-11] MEDS: GLUCERNA 1.2 1,000 ML BOTTLE GT PRN (04:51)
[2021-12-11] MEDS: LEVOTHYROXINE SODIUM 100 MCG TABLET GT SCH (05:01)
[2021-12-11] MEDS: BLOOD SUGAR DIAGNOSTIC 1 EACH STRIP IN SCH ×3 (05:01→21:31)
[2021-12-11] MEDS: INSULIN ASPART/LISPRO 100 UNIT/ML CARTRIDGE SQ PRN ×3 (05:01→21:33)
[2021-12-11 07:19] LABS: BASOPHILS % (AUTO) 0.2 % (0.0-2.0); EOSINOPHILS % (AUTO) 3.3 % (0.0-6.0); HEMATOCRIT 33 % (39-51); HEMOGLOBIN 10.5 g/dL (13.5-17.5); LYMPHOCYTES % (AUTO) 13.8 % (20.0-44.0); MEAN CORPUSCULAR HGB CONC 32 g/dl (31.0-36.0); MEAN CORPUSCULAR VOLUME 94 fL (80-96); MONOCYTES # (AUTO) 0.6 K/uL (0.1-1.30); MONOCYTES % (AUTO) 8.7 % (2.0-12.0); NEUTROPHILS # (AUTO) 5.4 K/uL (1.8-8.9); PLATELET COUNT (AUTO) 144 K/uL (150-450); WHITE BLOOD COUNT (AUTO) 7.3 K/uL (4.3-11.0)
[2021-12-11 07:28] VITALS: BP 141/67
[2021-12-11 08:03] LABS: CALCIUM, SERUM 9.7 mg/dL (8.5-10.1); CREATININE 1.3 mg/dL (0.6-1.3); MAGNESIUM 2.5 mg/dL (1.8-2.4); PHOSPHORUS 4.7 mg/dL (2.5-4.9); POTASSIUM 4.6 mmol/L (3.5-5.1)
[2021-12-11] MEDS: PENLAC TP SCH (09:00)
[2021-12-11] MEDS: LEVETIRACETAM 500 MG GT SCH ×2 (09:09→21:30)
[2021-12-11] MEDS: BACLOFEN 5 MG GT SCH ×2 (09:09→17:02)
[2021-12-11] MEDS: FAMOTIDINE (20 MG) 20 MG TABLET GT SCH (09:09)
[2021-12-11] MEDS: CHOLESTYRAMINE/ASPARTAME 4 G/PKT PACKET GT SCH (09:09)
[2021-12-11] MEDS: MULTIVIT W/MINERALS 1 TAB TABLET GT SCH (09:09)
[2021-12-11] MEDS: Z GUARD REMEDY 4 OZ OINT TP SCH ×2 (09:10→21:31)
[2021-12-11] MEDS: SIROLIMUS 1 MG GT SCH (09:12)
[2021-12-11] MEDS: JANUVIA 25 MG GT SCH (09:12)
[2021-12-11] MEDS: APIXABAN 2.5 MG TABLET GT SCH ×2 (09:12→17:02)
[2021-12-11] MEDS: FERROUS SULFATE - FOR SA ONLY 330 MG/7.5 ML UDC GT SCH ×3 (09:12→17:02)
[2021-12-11] MEDS: HYDROGEN PEROXIDE 480 ML BOTTLE TP SCH ×2 (09:30→21:00)
[2021-12-11 11:35] VITALS: BP 136/68
[2021-12-11] MEDS: DIGOXIN 0.125 MG TABLET GT SCH (12:15)
--- NOTE | 2021-12-11 14:12 | NUR ---
Latest Visitation Guidelines & Facility Update: DELMI called the pt.'s responsible democrat, Trevon Reed via email that, " Facility Update: A [facility] employee tested positive for COVID-19 this week. Residents and staff will continue receiving response testing. We will continue to implement [facility] infection control protocols and continue screening employees before every shift. [facility] continues to follow infection control protocols and screen our residents and staff daily for symptoms". and updated family on the latest visitation guidelines and encouraged families to get COVID Booster. Addendum: 12/16/21 at 1246 by DOTTIE AWAD Correction: " Facility Update: No [facility] employee tested positive for COVID-19 this week. Residents and staff will continue receiving response testing. We will continue to implement [facility] infection control protocols and continue screening employees before every shift. [facility] continues to follow infection control protocols and screen our residents and staff daily for symptoms".
[2021-12-11 19:44] VITALS: BP 146/77
[2021-12-11] MEDS: LATANOPROST EYE DROP 0.005% 2.5 ML BOTTLE EACHEYE SCH (21:31)
[2021-12-11] MEDS: TAMSULOSIN 0.4 MG CAP.SR.24H GT SCH (21:31)
[2021-12-11] MEDS: INSULIN GLARGINE, 100 UNIT/ML CARTRIDGE SQ SCH (21:32)
[2021-12-12 00:02] VITALS: BP 123/62
[2021-12-12] MEDS: IPRATROPIUM NEB FS 0.5 MG/2.5 ML AMPUL.NEB NEB SCH ×4 (01:39→19:06)
[2021-12-12] MEDS: ALBUTEROL FS 2.5 MG/0.5 ML VIAL.NEB NEB SCH ×4 (01:39→19:06)
[2021-12-12] MEDS: BLOOD SUGAR DIAGNOSTIC 1 EACH STRIP IN SCH ×3 (05:25→21:35)
[2021-12-12] MEDS: GLUCERNA 1.2 1,000 ML BOTTLE GT PRN ×2 (05:25→15:30)
[2021-12-12] MEDS: LEVOTHYROXINE SODIUM 100 MCG TABLET GT SCH (05:25)
[2021-12-12] MEDS: INSULIN ASPART/LISPRO 100 UNIT/ML CARTRIDGE SQ PRN ×3 (05:26→21:36)
[2021-12-12 07:25] VITALS: BP 117/62
[2021-12-12] MEDS: HYDROGEN PEROXIDE 480 ML BOTTLE TP SCH ×2 (08:56→19:06)
[2021-12-12] MEDS: MULTIVIT W/MINERALS 1 TAB TABLET GT SCH (09:40)
[2021-12-12] MEDS: CHOLESTYRAMINE/ASPARTAME 4 G/PKT PACKET GT SCH (09:40)
[2021-12-12] MEDS: Z GUARD REMEDY 4 OZ OINT TP SCH ×2 (09:40→21:35)
[2021-12-12] MEDS: FERROUS SULFATE - FOR SA ONLY 330 MG/7.5 ML UDC GT SCH ×3 (09:40→17:08)
[2021-12-12] MEDS: PENLAC TP SCH (09:40)
[2021-12-12] MEDS: JANUVIA 25 MG GT SCH (09:40)
[2021-12-12] MEDS: BACLOFEN 5 MG GT SCH ×2 (09:40→17:08)
[2021-12-12] MEDS: SIROLIMUS 1 MG GT SCH (09:40)
[2021-12-12] MEDS: LEVETIRACETAM 500 MG GT SCH ×2 (09:40→21:35)
[2021-12-12] MEDS: APIXABAN 2.5 MG TABLET GT SCH ×2 (09:40→17:08)
[2021-12-12] MEDS: FAMOTIDINE (20 MG) 20 MG TABLET GT SCH (09:40)
[2021-12-12 11:06] VITALS: BP 128/90
[2021-12-12] MEDS: DIGOXIN 0.125 MG TABLET GT SCH (12:07)
[2021-12-12 20:37] VITALS: BP 129/96
[2021-12-12] MEDS: TAMSULOSIN 0.4 MG CAP.SR.24H GT SCH (21:36)
[2021-12-12] MEDS: LATANOPROST EYE DROP 0.005% 2.5 ML BOTTLE EACHEYE SCH (21:36)
[2021-12-12] MEDS: INSULIN GLARGINE, 100 UNIT/ML CARTRIDGE SQ SCH (21:36)
[2021-12-13 00:46] VITALS: BP 128/71
[2021-12-13] MEDS: ALBUTEROL FS 2.5 MG/0.5 ML VIAL.NEB NEB SCH ×4 (02:21→19:38)
[2021-12-13] MEDS: IPRATROPIUM NEB FS 0.5 MG/2.5 ML AMPUL.NEB NEB SCH ×4 (02:21→19:38)
[2021-12-13] MEDS: BLOOD SUGAR DIAGNOSTIC 1 EACH STRIP IN SCH ×3 (05:18→20:33)
[2021-12-13] MEDS: LEVOTHYROXINE SODIUM 100 MCG TABLET GT SCH (05:19)
[2021-12-13] MEDS: INSULIN ASPART/LISPRO 100 UNIT/ML CARTRIDGE SQ PRN ×2 (05:20→20:35)
[2021-12-13 07:15] VITALS: BP 113/72
[2021-12-13] MEDS: HYDROGEN PEROXIDE 480 ML BOTTLE TP SCH ×2 (08:50→19:38)
[2021-12-13] MEDS: MULTIVIT W/MINERALS 1 TAB TABLET GT SCH (09:53)
[2021-12-13] MEDS: FERROUS SULFATE - FOR SA ONLY 330 MG/7.5 ML UDC GT SCH ×3 (09:53→17:25)
[2021-12-13] MEDS: JANUVIA 25 MG GT SCH (09:53)
[2021-12-13] MEDS: BACLOFEN 5 MG GT SCH ×2 (09:53→17:25)
[2021-12-13] MEDS: APIXABAN 2.5 MG TABLET GT SCH ×2 (09:53→17:25)
[2021-12-13] MEDS: FAMOTIDINE (20 MG) 20 MG TABLET GT SCH (09:53)
[2021-12-13] MEDS: SIROLIMUS 1 MG GT SCH (09:53)
[2021-12-13] MEDS: LEVETIRACETAM 500 MG GT SCH ×2 (09:53→20:33)
[2021-12-13] MEDS: CHOLESTYRAMINE/ASPARTAME 4 G/PKT PACKET GT SCH (09:53)
[2021-12-13] MEDS: PENLAC TP SCH (09:54)
[2021-12-13] MEDS: Z GUARD REMEDY 4 OZ OINT TP SCH ×2 (09:54→20:34)
[2021-12-13 12:17] VITALS: BP 129/73
[2021-12-13] MEDS: DIGOXIN 0.125 MG TABLET GT SCH (12:53)
[2021-12-13] MEDS: GLUCERNA 1.2 1,000 ML BOTTLE GT PRN (17:23)
[2021-12-13 20:19] VITALS: BP 111/61
[2021-12-13] MEDS: LATANOPROST EYE DROP 0.005% 2.5 ML BOTTLE EACHEYE SCH (21:18)
[2021-12-13] MEDS: TAMSULOSIN 0.4 MG CAP.SR.24H GT SCH (21:19)
[2021-12-13] MEDS: INSULIN GLARGINE, 100 UNIT/ML CARTRIDGE SQ SCH (21:21)
[2021-12-14] MEDS: ALBUTEROL FS 2.5 MG/0.5 ML VIAL.NEB NEB SCH ×4 (02:12→14:23)
[2021-12-14] MEDS: IPRATROPIUM NEB FS 0.5 MG/2.5 ML AMPUL.NEB NEB SCH ×4 (02:12→14:23)
[2021-12-14] MEDS: LEVOTHYROXINE SODIUM 100 MCG TABLET GT SCH (05:29)
[2021-12-14] MEDS: INSULIN ASPART/LISPRO 100 UNIT/ML CARTRIDGE SQ PRN ×3 (05:29→20:42)
[2021-12-14] MEDS: BLOOD SUGAR DIAGNOSTIC 1 EACH STRIP IN SCH ×3 (05:29→20:34)
[2021-12-14 07:27] VITALS: BP 142/77
[2021-12-14] MEDS: CHOLESTYRAMINE/ASPARTAME 4 G/PKT PACKET GT SCH (08:48)
[2021-12-14] MEDS: FERROUS SULFATE - FOR SA ONLY 330 MG/7.5 ML UDC GT SCH ×3 (09:00→17:00)
[2021-12-14] MEDS: Z GUARD REMEDY 4 OZ OINT TP SCH ×2 (09:00→20:34)
[2021-12-14] MEDS: APIXABAN 2.5 MG TABLET GT SCH ×2 (09:00→17:00)
[2021-12-14] MEDS: MULTIVIT W/MINERALS 1 TAB TABLET GT SCH (09:00)
[2021-12-14] MEDS: LEVETIRACETAM 500 MG GT SCH ×2 (09:00→20:34)
[2021-12-14] MEDS: FAMOTIDINE (20 MG) 20 MG TABLET GT SCH (09:00)
[2021-12-14] MEDS: BACLOFEN 5 MG GT SCH ×2 (09:00→17:00)
[2021-12-14] MEDS: JANUVIA 25 MG GT SCH (09:00)
[2021-12-14] MEDS: SIROLIMUS 1 MG GT SCH (09:00)
[2021-12-14] MEDS: PENLAC TP SCH (09:00)
[2021-12-14] MEDS: HYDROGEN PEROXIDE 480 ML BOTTLE TP SCH ×2 (09:00→21:08)
[2021-12-14 12:25] VITALS: BP 124/66
[2021-12-14] MEDS: DIGOXIN 0.125 MG TABLET GT SCH (13:00)
[2021-12-14] MEDS: GLUCERNA 1.2 1,000 ML BOTTLE GT PRN (15:47)
[2021-12-14 20:30] VITALS: BP 141/68
[2021-12-14] MEDS: TAMSULOSIN 0.4 MG CAP.SR.24H GT SCH (21:19)
[2021-12-14] MEDS: LATANOPROST EYE DROP 0.005% 2.5 ML BOTTLE EACHEYE SCH (21:19)
[2021-12-14] MEDS: INSULIN GLARGINE, 100 UNIT/ML CARTRIDGE SQ SCH (21:20)
[2021-12-15] MEDS: IPRATROPIUM NEB FS 0.5 MG/2.5 ML AMPUL.NEB NEB SCH ×4 (01:40→20:12)
[2021-12-15] MEDS: ALBUTEROL FS 2.5 MG/0.5 ML VIAL.NEB NEB SCH ×4 (01:40→20:12)
[2021-12-15] MEDS: BLOOD SUGAR DIAGNOSTIC 1 EACH STRIP IN SCH ×3 (05:17→20:38)
[2021-12-15] MEDS: LEVOTHYROXINE SODIUM 100 MCG TABLET GT SCH (05:18)
[2021-12-15] MEDS: INSULIN ASPART/LISPRO 100 UNIT/ML CARTRIDGE SQ PRN ×3 (05:18→20:42)
[2021-12-15 07:44] VITALS: BP 127/70
[2021-12-15] MEDS: HYDROGEN PEROXIDE 480 ML BOTTLE TP SCH ×2 (08:30→21:31)
[2021-12-15] MEDS: BACLOFEN 5 MG GT SCH ×2 (09:42→17:01)
[2021-12-15] MEDS: LEVETIRACETAM 500 MG GT SCH ×2 (09:42→20:38)
[2021-12-15] MEDS: FAMOTIDINE (20 MG) 20 MG TABLET GT SCH (09:42)
[2021-12-15] MEDS: APIXABAN 2.5 MG TABLET GT SCH ×2 (09:42→17:01)
[2021-12-15] MEDS: SIROLIMUS 1 MG GT SCH (09:42)
[2021-12-15] MEDS: CHOLESTYRAMINE/ASPARTAME 4 G/PKT PACKET GT SCH (09:42)
[2021-12-15] MEDS: JANUVIA 25 MG GT SCH (09:42)
[2021-12-15] MEDS: FERROUS SULFATE - FOR SA ONLY 330 MG/7.5 ML UDC GT SCH ×3 (09:42→17:01)
[2021-12-15] MEDS: MULTIVIT W/MINERALS 1 TAB TABLET GT SCH (09:42)
[2021-12-15] MEDS: PENLAC TP SCH (09:43)
[2021-12-15] MEDS: Z GUARD REMEDY 4 OZ OINT TP SCH ×2 (09:43→20:38)
[2021-12-15] MEDS: DIGOXIN 0.125 MG TABLET GT SCH (13:21)
[2021-12-15 13:44] VITALS: BP 128/66
[2021-12-15] MEDS: GLUCERNA 1.2 1,000 ML BOTTLE GT PRN (17:03)
[2021-12-15 20:25] VITALS: BP 131/70
[2021-12-15] MEDS: TAMSULOSIN 0.4 MG CAP.SR.24H GT SCH (21:08)
[2021-12-15] MEDS: INSULIN GLARGINE, 100 UNIT/ML CARTRIDGE SQ SCH (21:08)
[2021-12-15] MEDS: LATANOPROST EYE DROP 0.005% 2.5 ML BOTTLE EACHEYE SCH (21:08)
[2021-12-16] MEDS: ALBUTEROL FS 2.5 MG/0.5 ML VIAL.NEB NEB SCH ×4 (01:49→19:42)
[2021-12-16] MEDS: IPRATROPIUM NEB FS 0.5 MG/2.5 ML AMPUL.NEB NEB SCH ×4 (01:49→19:42)
[2021-12-16] MEDS: LEVOTHYROXINE SODIUM 100 MCG TABLET GT SCH (05:41)
[2021-12-16] MEDS: INSULIN ASPART/LISPRO 100 UNIT/ML CARTRIDGE SQ PRN ×3 (05:41→21:31)
[2021-12-16] MEDS: BLOOD SUGAR DIAGNOSTIC 1 EACH STRIP IN SCH ×3 (05:41→21:30)
[2021-12-16] MEDS: HYDROGEN PEROXIDE 480 ML BOTTLE TP SCH ×2 (08:01→19:42)
[2021-12-16 08:07] VITALS: BP 154/60
[2021-12-16] MEDS: SIROLIMUS 1 MG GT SCH (09:24)
[2021-12-16] MEDS: LEVETIRACETAM 500 MG GT SCH ×2 (09:24→21:30)
[2021-12-16] MEDS: FERROUS SULFATE - FOR SA ONLY 330 MG/7.5 ML UDC GT SCH ×3 (09:24→17:00)
[2021-12-16] MEDS: Z GUARD REMEDY 4 OZ OINT TP SCH ×2 (09:24→21:30)
[2021-12-16] MEDS: BACLOFEN 5 MG GT SCH ×2 (09:24→17:00)
[2021-12-16] MEDS: FAMOTIDINE (20 MG) 20 MG TABLET GT SCH (09:24)
[2021-12-16] MEDS: APIXABAN 2.5 MG TABLET GT SCH ×2 (09:24→17:00)
[2021-12-16] MEDS: MULTIVIT W/MINERALS 1 TAB TABLET GT SCH (09:24)
[2021-12-16] MEDS: CHOLESTYRAMINE/ASPARTAME 4 G/PKT PACKET GT SCH (09:24)
[2021-12-16] MEDS: PENLAC TP SCH (09:24)
[2021-12-16] MEDS: JANUVIA 25 MG GT SCH (09:24)
[2021-12-16] MEDS: DIGOXIN 0.125 MG TABLET GT SCH (13:14)
[2021-12-16 13:44] VITALS: BP 154/66
[2021-12-16] MEDS: GLUCERNA 1.2 1,000 ML BOTTLE GT PRN (17:00)
[2021-12-16 20:34] VITALS: BP 130/65
[2021-12-16] MEDS: LATANOPROST EYE DROP 0.005% 2.5 ML BOTTLE EACHEYE SCH (21:30)
[2021-12-16] MEDS: TAMSULOSIN 0.4 MG CAP.SR.24H GT SCH (21:30)
[2021-12-16] MEDS: INSULIN GLARGINE, 100 UNIT/ML CARTRIDGE SQ SCH (21:31)
[2021-12-17] MEDS: IPRATROPIUM NEB FS 0.5 MG/2.5 ML AMPUL.NEB NEB SCH ×4 (02:05→19:50)
[2021-12-17] MEDS: ALBUTEROL FS 2.5 MG/0.5 ML VIAL.NEB NEB SCH ×4 (02:05→19:50)
[2021-12-17] MEDS: BLOOD SUGAR DIAGNOSTIC 1 EACH STRIP IN SCH ×3 (05:52→21:07)
[2021-12-17] MEDS: LEVOTHYROXINE SODIUM 100 MCG TABLET GT SCH (05:52)
[2021-12-17] MEDS: INSULIN ASPART/LISPRO 100 UNIT/ML CARTRIDGE SQ PRN ×2 (05:52→21:09)
[2021-12-17 08:00] VITALS: BP 143/71
[2021-12-17] MEDS: SIROLIMUS 1 MG GT SCH (08:27)
[2021-12-17] MEDS: MULTIVIT W/MINERALS 1 TAB TABLET GT SCH (08:27)
[2021-12-17] MEDS: FERROUS SULFATE - FOR SA ONLY 330 MG/7.5 ML UDC GT SCH ×3 (08:27→17:07)
[2021-12-17] MEDS: LEVETIRACETAM 500 MG GT SCH ×2 (08:27→21:07)
[2021-12-17] MEDS: JANUVIA 25 MG GT SCH (08:27)
[2021-12-17] MEDS: BACLOFEN 5 MG GT SCH ×2 (08:27→17:07)
[2021-12-17] MEDS: CHOLESTYRAMINE/ASPARTAME 4 G/PKT PACKET GT SCH (08:27)
[2021-12-17] MEDS: APIXABAN 2.5 MG TABLET GT SCH ×2 (08:27→17:07)
[2021-12-17] MEDS: PENLAC TP SCH (08:27)
[2021-12-17] MEDS: FAMOTIDINE (20 MG) 20 MG TABLET GT SCH (08:27)
[2021-12-17] MEDS: Z GUARD REMEDY 4 OZ OINT TP SCH ×2 (08:28→21:08)
[2021-12-17] MEDS: HYDROGEN PEROXIDE 480 ML BOTTLE TP SCH ×2 (09:29→19:51)
[2021-12-17] MEDS: DIGOXIN 0.125 MG TABLET GT SCH (12:36)
[2021-12-17] MEDS: GLUCERNA 1.2 1,000 ML BOTTLE GT PRN (12:36)
--- NOTE | 2021-12-17 14:36 | NUR ---
MDS: SW completed the SS portion of Annual MDS. The patients responsible republican is the son, Trevon Albrecht [phone]. The patient is lethargic, non-verbal and Full Code. 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 The pt.s last dental exam by Dr. Pizarro was on 10/02/2021. The pt.s last optometry apt. with Dr. Weeks was on 08/24/2021. The pt.s last podiatry apt. with Dr. Salcedo was on 12/10/2021.
--- NOTE | 2021-12-17 18:13 | NUR ---
ROUTE SALES TRAINEE notes: Blood sugar check at 12 noon done: BS result = 105
[2021-12-17 19:42] VITALS: BP 133/74
[2021-12-17] MEDS: LATANOPROST EYE DROP 0.005% 2.5 ML BOTTLE EACHEYE SCH (21:08)
[2021-12-17] MEDS: TAMSULOSIN 0.4 MG CAP.SR.24H GT SCH (21:08)
[2021-12-17] MEDS: INSULIN GLARGINE, 100 UNIT/ML CARTRIDGE SQ SCH (21:08)
[2021-12-18 00:15] VITALS: BP 139/76
[2021-12-18] MEDS: ALBUTEROL FS 2.5 MG/0.5 ML VIAL.NEB NEB SCH ×4 (02:00→20:45)
[2021-12-18] MEDS: IPRATROPIUM NEB FS 0.5 MG/2.5 ML AMPUL.NEB NEB SCH ×4 (02:00→20:45)
[2021-12-18] MEDS: BLOOD SUGAR DIAGNOSTIC 1 EACH STRIP IN SCH ×3 (05:42→21:27)
[2021-12-18] MEDS: LEVOTHYROXINE SODIUM 100 MCG TABLET GT SCH (05:42)
[2021-12-18] MEDS: GLUCERNA 1.2 1,000 ML BOTTLE GT PRN (05:43)
[2021-12-18 07:50] VITALS: BP 145/81
[2021-12-18] MEDS: HYDROGEN PEROXIDE 480 ML BOTTLE TP SCH ×2 (09:19→20:45)
[2021-12-18] MEDS: FERROUS SULFATE - FOR SA ONLY 330 MG/7.5 ML UDC GT SCH ×3 (09:20→17:21)
[2021-12-18] MEDS: BACLOFEN 5 MG GT SCH ×2 (09:20→17:21)
[2021-12-18] MEDS: APIXABAN 2.5 MG TABLET GT SCH ×2 (09:20→17:21)
[2021-12-18] MEDS: MULTIVIT W/MINERALS 1 TAB TABLET GT SCH (09:20)
[2021-12-18] MEDS: SIROLIMUS 1 MG GT SCH (09:20)
[2021-12-18] MEDS: Z GUARD REMEDY 4 OZ OINT TP SCH ×2 (09:20→21:27)
[2021-12-18] MEDS: PENLAC TP SCH (09:20)
[2021-12-18] MEDS: CHOLESTYRAMINE/ASPARTAME 4 G/PKT PACKET GT SCH (09:20)
[2021-12-18] MEDS: FAMOTIDINE (20 MG) 20 MG TABLET GT SCH (09:20)
[2021-12-18] MEDS: LEVETIRACETAM 500 MG GT SCH ×2 (09:20→21:27)
[2021-12-18] MEDS: JANUVIA 25 MG GT SCH (09:20)
[2021-12-18 12:29] VITALS: BP 132/71
[2021-12-18] MEDS: INSULIN ASPART/LISPRO 100 UNIT/ML CARTRIDGE SQ PRN ×2 (13:23→21:32)
[2021-12-18] MEDS: DIGOXIN 0.125 MG TABLET GT SCH (13:23)
--- NOTE | 2021-12-18 14:58 | NUR ---
INTERDISCIPLINARY PLAN OF CARE CONFERENCE took place today. The patients responsible republican, Trevon [phone] Alicea and Interdisciplinary team discussed the plan of care in detail. Current orders as well as treatments and medications were reviewed. See team conference notes for details.
[2021-12-18 19:49] VITALS: BP 132/63
[2021-12-18] MEDS: TAMSULOSIN 0.4 MG CAP.SR.24H GT SCH (21:27)
[2021-12-18] MEDS: LATANOPROST EYE DROP 0.005% 2.5 ML BOTTLE EACHEYE SCH (21:27)
[2021-12-18] MEDS: INSULIN GLARGINE, 100 UNIT/ML CARTRIDGE SQ SCH (21:28)
[2021-12-19 00:29] VITALS: BP 134/60
[2021-12-19] MEDS: IPRATROPIUM NEB FS 0.5 MG/2.5 ML AMPUL.NEB NEB SCH ×4 (02:59→20:07)
[2021-12-19] MEDS: ALBUTEROL FS 2.5 MG/0.5 ML VIAL.NEB NEB SCH ×4 (02:59→20:07)
[2021-12-19] MEDS: GLUCERNA 1.2 1,000 ML BOTTLE GT PRN (05:39)
[2021-12-19] MEDS: LEVOTHYROXINE SODIUM 100 MCG TABLET GT SCH (05:39)
[2021-12-19] MEDS: INSULIN ASPART/LISPRO 100 UNIT/ML CARTRIDGE SQ PRN ×3 (05:39→21:54)
[2021-12-19] MEDS: BLOOD SUGAR DIAGNOSTIC 1 EACH STRIP IN SCH ×3 (05:39→21:00)
[2021-12-19 07:22] VITALS: BP 132/79
[2021-12-19] MEDS: HYDROGEN PEROXIDE 480 ML BOTTLE TP PRN (08:13)
[2021-12-19] MEDS: HYDROGEN PEROXIDE 480 ML BOTTLE TP SCH ×2 (09:00→21:00)
[2021-12-19] MEDS: JANUVIA 25 MG GT SCH (09:32)
[2021-12-19] MEDS: SIROLIMUS 1 MG GT SCH (09:32)
[2021-12-19] MEDS: Z GUARD REMEDY 4 OZ OINT TP SCH ×2 (09:32→21:00)
[2021-12-19] MEDS: CHOLESTYRAMINE/ASPARTAME 4 G/PKT PACKET GT SCH (09:32)
[2021-12-19] MEDS: LEVETIRACETAM 500 MG GT SCH ×2 (09:32→21:00)
[2021-12-19] MEDS: FERROUS SULFATE - FOR SA ONLY 330 MG/7.5 ML UDC GT SCH ×3 (09:32→16:51)
[2021-12-19] MEDS: BACLOFEN 5 MG GT SCH ×2 (09:32→16:51)
[2021-12-19] MEDS: FAMOTIDINE (20 MG) 20 MG TABLET GT SCH (09:32)
[2021-12-19] MEDS: PENLAC TP SCH (09:32)
[2021-12-19] MEDS: MULTIVIT W/MINERALS 1 TAB TABLET GT SCH (09:32)
[2021-12-19] MEDS: APIXABAN 2.5 MG TABLET GT SCH ×2 (09:32→16:50)
[2021-12-19] MEDS: DIGOXIN 0.125 MG TABLET GT SCH (12:05)
[2021-12-19 12:19] VITALS: BP 121/62
[2021-12-19 20:04] VITALS: BP 143/70
--- NOTE | 2021-12-19 21:27 | NUR ---
G-TUBE FEEDING [id number], FEEDING HELD, CHARGE NURSE SOCORRO MORFIN.
[2021-12-19] MEDS: LATANOPROST EYE DROP 0.005% 2.5 ML BOTTLE EACHEYE SCH (22:15)
[2021-12-19] MEDS: TAMSULOSIN 0.4 MG CAP.SR.24H GT SCH (22:15)
[2021-12-19] MEDS: INSULIN GLARGINE, 100 UNIT/ML CARTRIDGE SQ SCH (22:23)
--- NOTE | 2021-12-20 00:32 | NUR ---
G-TUBE FEEDING RESIDUAL CHECKED= NONE, TUBE FEEDING RESUMED.
[2021-12-20] MEDS: ALBUTEROL FS 2.5 MG/0.5 ML VIAL.NEB NEB SCH ×4 (02:27→20:09)
[2021-12-20] MEDS: IPRATROPIUM NEB FS 0.5 MG/2.5 ML AMPUL.NEB NEB SCH ×4 (02:27→20:09)
[2021-12-20] MEDS: BLOOD SUGAR DIAGNOSTIC 1 EACH STRIP IN SCH ×3 (05:00→20:31)
[2021-12-20] MEDS: INSULIN ASPART/LISPRO 100 UNIT/ML CARTRIDGE SQ PRN ×3 (05:23→20:31)
[2021-12-20] MEDS: LEVOTHYROXINE SODIUM 100 MCG TABLET GT SCH (05:26)
[2021-12-20 07:16] LABS: BASOPHILS % (AUTO) 0.5 % (0.0-2.0); EOSINOPHILS % (AUTO) 3.3 % (0.0-6.0); HEMATOCRIT 32 % (39-51); HEMOGLOBIN 10.4 g/dL (13.5-17.5); LYMPHOCYTES # (AUTO) 0.9 K/uL (0.8-4.8); LYMPHOCYTES % (AUTO) 12.4 % (20.0-44.0); MEAN CORPUSCULAR HGB CONC 32 g/dl (31.0-36.0); MEAN CORPUSCULAR VOLUME 94 fL (80-96); MONOCYTES # (AUTO) 0.5 K/uL (0.1-1.30); MONOCYTES % (AUTO) 7.6 % (2.0-12.0); NEUTROPHILS # (AUTO) 5.3 K/uL (1.8-8.9); NEUTROPHILS % (AUTO) 76.2 % (43.0-81.0); PLATELET COUNT (AUTO) 114 K/uL (150-450); RED BLOOD CELL COUNT(AUTO) 3.44 MIL/uL (4.5-6.0); WHITE BLOOD COUNT (AUTO) 6.9 K/uL (4.3-11.0)
[2021-12-20 07:24] VITALS: BP 95/69
[2021-12-20 08:33] LABS: CALCIUM, SERUM 9.1 mg/dL (8.5-10.1); CREATININE 1.3 mg/dL (0.6-1.3); MAGNESIUM 2.4 mg/dL (1.8-2.4); PHOSPHORUS 3.9 mg/dL (2.5-4.9); POTASSIUM 4.4 mmol/L (3.5-5.1)
[2021-12-20] MEDS: JANUVIA 25 MG GT SCH (09:00)
[2021-12-20] MEDS: PENLAC TP SCH (09:00)
[2021-12-20] MEDS: BACLOFEN 5 MG GT SCH ×2 (09:00→17:34)
[2021-12-20] MEDS: LEVETIRACETAM 500 MG GT SCH ×2 (09:00→20:22)
[2021-12-20] MEDS: FAMOTIDINE (20 MG) 20 MG TABLET GT SCH (09:00)
[2021-12-20] MEDS: SIROLIMUS 1 MG GT SCH (09:00)
[2021-12-20] MEDS: Z GUARD REMEDY 4 OZ OINT TP SCH ×2 (09:00→20:22)
[2021-12-20] MEDS: CHOLESTYRAMINE/ASPARTAME 4 G/PKT PACKET GT SCH (09:00)
[2021-12-20] MEDS: APIXABAN 2.5 MG TABLET GT SCH ×2 (09:00→17:34)
[2021-12-20] MEDS: FERROUS SULFATE - FOR SA ONLY 330 MG/7.5 ML UDC GT SCH ×3 (09:00→17:34)
[2021-12-20] MEDS: MULTIVIT W/MINERALS 1 TAB TABLET GT SCH (09:00)
[2021-12-20] MEDS: HYDROGEN PEROXIDE 480 ML BOTTLE TP SCH ×2 (09:21→21:12)
[2021-12-20 12:17] VITALS: BP 158/97
[2021-12-20] MEDS: DIGOXIN 0.125 MG TABLET GT SCH (13:29)
[2021-12-20 20:29] VITALS: BP 131/74
[2021-12-20] MEDS: LATANOPROST EYE DROP 0.005% 2.5 ML BOTTLE EACHEYE SCH (21:32)
[2021-12-20] MEDS: TAMSULOSIN 0.4 MG CAP.SR.24H GT SCH (21:32)
[2021-12-20] MEDS: INSULIN GLARGINE, 100 UNIT/ML CARTRIDGE SQ SCH (21:33)
[2021-12-21] MEDS: IPRATROPIUM NEB FS 0.5 MG/2.5 ML AMPUL.NEB NEB SCH ×4 (01:39→20:03)
[2021-12-21] MEDS: ALBUTEROL FS 2.5 MG/0.5 ML VIAL.NEB NEB SCH ×4 (01:39→20:03)
[2021-12-21] MEDS: BLOOD SUGAR DIAGNOSTIC 1 EACH STRIP IN SCH ×3 (05:05→20:23)
[2021-12-21] MEDS: LEVOTHYROXINE SODIUM 100 MCG TABLET GT SCH (05:05)
[2021-12-21] MEDS: INSULIN ASPART/LISPRO 100 UNIT/ML CARTRIDGE SQ PRN ×3 (05:06→20:25)
[2021-12-21 07:33] VITALS: BP 146/89
[2021-12-21] MEDS: HYDROGEN PEROXIDE 480 ML BOTTLE TP SCH ×2 (08:26→21:08)
[2021-12-21] MEDS: FERROUS SULFATE - FOR SA ONLY 330 MG/7.5 ML UDC GT SCH ×3 (08:54→17:44)
[2021-12-21] MEDS: JANUVIA 25 MG GT SCH (08:54)
[2021-12-21] MEDS: APIXABAN 2.5 MG TABLET GT SCH ×2 (08:54→17:43)
[2021-12-21] MEDS: Z GUARD REMEDY 4 OZ OINT TP SCH ×2 (08:55→20:23)
[2021-12-21] MEDS: FAMOTIDINE (20 MG) 20 MG TABLET GT SCH (08:55)
[2021-12-21] MEDS: SIROLIMUS 1 MG GT SCH (08:55)
[2021-12-21] MEDS: MULTIVIT W/MINERALS 1 TAB TABLET GT SCH (08:55)
[2021-12-21] MEDS: LEVETIRACETAM 500 MG GT SCH ×2 (08:55→20:23)
[2021-12-21] MEDS: BACLOFEN 5 MG GT SCH ×2 (08:55→17:44)
[2021-12-21] MEDS: CHOLESTYRAMINE/ASPARTAME 4 G/PKT PACKET GT SCH (08:55)
[2021-12-21] MEDS: PENLAC TP SCH (09:00)
[2021-12-21] MEDS: DIGOXIN 0.125 MG TABLET GT SCH (12:49)
[2021-12-21 13:01] VITALS: BP_SYST 118; BP_SYST 155; BP_DIAS 72; BP_DIAS 87
[2021-12-21 20:16] VITALS: BP 142/67
[2021-12-21] MEDS: LATANOPROST EYE DROP 0.005% 2.5 ML BOTTLE EACHEYE SCH (21:27)
[2021-12-21] MEDS: TAMSULOSIN 0.4 MG CAP.SR.24H GT SCH (21:28)
[2021-12-21] MEDS: INSULIN GLARGINE, 100 UNIT/ML CARTRIDGE SQ SCH (21:31)
[2021-12-21] MEDS: GLUCERNA 1.2 1,000 ML BOTTLE GT PRN (22:39)
[2021-12-22] MEDS: ALBUTEROL FS 2.5 MG/0.5 ML VIAL.NEB NEB SCH ×4 (01:39→20:08)
[2021-12-22] MEDS: IPRATROPIUM NEB FS 0.5 MG/2.5 ML AMPUL.NEB NEB SCH ×4 (01:39→20:08)
[2021-12-22] MEDS: BLOOD SUGAR DIAGNOSTIC 1 EACH STRIP IN SCH ×3 (05:27→21:40)
[2021-12-22] MEDS: LEVOTHYROXINE SODIUM 125 MCG TABLET GT SCH (05:27)
[2021-12-22] MEDS: INSULIN ASPART/LISPRO 100 UNIT/ML CARTRIDGE SQ PRN ×2 (05:30→13:24)
[2021-12-22 07:16] VITALS: BP 133/70
--- NOTE | 2021-12-22 09:00 | NUR ---
Seen and examined by Dr. Alicea, no new order given.
[2021-12-22] MEDS: HYDROGEN PEROXIDE 480 ML BOTTLE TP SCH ×2 (09:14→21:21)
[2021-12-22] MEDS: APIXABAN 2.5 MG TABLET GT SCH ×2 (09:33→17:50)
[2021-12-22] MEDS: JANUVIA 25 MG GT SCH (09:34)
[2021-12-22] MEDS: FERROUS SULFATE - FOR SA ONLY 330 MG/7.5 ML UDC GT SCH ×3 (09:34→17:50)
[2021-12-22] MEDS: SIROLIMUS 1 MG GT SCH (09:35)
[2021-12-22] MEDS: PENLAC TP SCH (09:35)
[2021-12-22] MEDS: MULTIVIT W/MINERALS 1 TAB TABLET GT SCH (09:35)
[2021-12-22] MEDS: Z GUARD REMEDY 4 OZ OINT TP SCH ×2 (09:35→21:41)
[2021-12-22] MEDS: BACLOFEN 5 MG GT SCH ×2 (09:35→17:50)
[2021-12-22] MEDS: CHOLESTYRAMINE/ASPARTAME 4 G/PKT PACKET GT SCH (09:35)
[2021-12-22] MEDS: FAMOTIDINE (20 MG) 20 MG TABLET GT SCH (09:35)
[2021-12-22] MEDS: LEVETIRACETAM 500 MG GT SCH ×2 (09:35→21:37)
[2021-12-22 12:35] VITALS: BP 153/77
[2021-12-22] MEDS: DIGOXIN 0.125 MG TABLET GT SCH (13:19)
[2021-12-22 20:16] VITALS: BP 127/69
[2021-12-22] MEDS: INSULIN GLARGINE, 100 UNIT/ML CARTRIDGE SQ SCH (21:41)
[2021-12-22] MEDS: TAMSULOSIN 0.4 MG CAP.SR.24H GT SCH (21:41)
[2021-12-22] MEDS: LATANOPROST EYE DROP 0.005% 2.5 ML BOTTLE EACHEYE SCH (21:41)
[2021-12-22 22:00] VITALS: BP 127/69
[2021-12-23] MEDS: ALBUTEROL FS 2.5 MG/0.5 ML VIAL.NEB NEB SCH ×4 (01:39→20:02)
[2021-12-23] MEDS: IPRATROPIUM NEB FS 0.5 MG/2.5 ML AMPUL.NEB NEB SCH ×4 (01:39→20:02)
[2021-12-23] MEDS: BLOOD SUGAR DIAGNOSTIC 1 EACH STRIP IN SCH ×3 (04:29→21:35)
[2021-12-23] MEDS: LEVOTHYROXINE SODIUM 125 MCG TABLET GT SCH (05:08)
[2021-12-23 07:12] VITALS: BP 126/76
[2021-12-23] MEDS: HYDROGEN PEROXIDE 480 ML BOTTLE TP SCH ×2 (08:28→20:02)
[2021-12-23] MEDS: BACLOFEN 5 MG GT SCH ×2 (09:00→17:10)
[2021-12-23] MEDS: FERROUS SULFATE - FOR SA ONLY 330 MG/7.5 ML UDC GT SCH ×3 (09:00→17:10)
[2021-12-23] MEDS: FAMOTIDINE (20 MG) 20 MG TABLET GT SCH (09:00)
[2021-12-23] MEDS: LEVETIRACETAM 500 MG GT SCH ×2 (09:00→21:35)
[2021-12-23] MEDS: PENLAC TP SCH (09:00)
[2021-12-23] MEDS: CHOLESTYRAMINE/ASPARTAME 4 G/PKT PACKET GT SCH (09:00)
[2021-12-23] MEDS: SIROLIMUS 1 MG GT SCH (09:00)
[2021-12-23] MEDS: APIXABAN 2.5 MG TABLET GT SCH ×2 (09:00→17:10)
[2021-12-23] MEDS: JANUVIA 25 MG GT SCH (09:00)
[2021-12-23] MEDS: Z GUARD REMEDY 4 OZ OINT TP SCH ×2 (09:00→21:35)
[2021-12-23] MEDS: MULTIVIT W/MINERALS 1 TAB TABLET GT SCH (09:00)
[2021-12-23] MEDS: INSULIN ASPART/LISPRO 100 UNIT/ML CARTRIDGE SQ PRN ×2 (12:57→21:37)
[2021-12-23] MEDS: DIGOXIN 0.125 MG TABLET GT SCH (12:57)
[2021-12-23 13:50] VITALS: BP 166/83
[2021-12-23] MEDS: GLUCERNA 1.2 1,000 ML BOTTLE GT PRN (17:13)
[2021-12-23 20:11] VITALS: BP 154/79
[2021-12-23] MEDS: TAMSULOSIN 0.4 MG CAP.SR.24H GT SCH (21:35)
[2021-12-23] MEDS: LATANOPROST EYE DROP 0.005% 2.5 ML BOTTLE EACHEYE SCH (21:35)
[2021-12-23] MEDS: INSULIN GLARGINE, 100 UNIT/ML CARTRIDGE SQ SCH (21:36)
[2021-12-23] MEDS: GUAIFENESIN 300 MG/15 ML UDC GT PRN (22:36)
[2021-12-24] MEDS: ALBUTEROL FS 2.5 MG/0.5 ML VIAL.NEB NEB SCH ×4 (00:39→19:43)
[2021-12-24] MEDS: IPRATROPIUM NEB FS 0.5 MG/2.5 ML AMPUL.NEB NEB SCH ×4 (00:39→19:43)
[2021-12-24] MEDS: INSULIN ASPART/LISPRO 100 UNIT/ML CARTRIDGE SQ PRN ×3 (05:47→21:18)
[2021-12-24] MEDS: BLOOD SUGAR DIAGNOSTIC 1 EACH STRIP IN SCH ×3 (05:47→21:17)
[2021-12-24] MEDS: LEVOTHYROXINE SODIUM 125 MCG TABLET GT SCH (05:47)
[2021-12-24 07:34] VITALS: BP 135/81
[2021-12-24] MEDS: CHOLESTYRAMINE/ASPARTAME 4 G/PKT PACKET GT SCH (08:40)
[2021-12-24] MEDS: PENLAC TP SCH (09:00)
[2021-12-24] MEDS: APIXABAN 2.5 MG TABLET GT SCH ×2 (09:40→16:29)
[2021-12-24] MEDS: JANUVIA 25 MG GT SCH (09:40)
[2021-12-24] MEDS: FERROUS SULFATE - FOR SA ONLY 330 MG/7.5 ML UDC GT SCH ×3 (09:40→16:29)
[2021-12-24] MEDS: SIROLIMUS 1 MG GT SCH (09:40)
[2021-12-24] MEDS: BACLOFEN 5 MG GT SCH ×2 (09:41→16:30)
[2021-12-24] MEDS: FAMOTIDINE (20 MG) 20 MG TABLET GT SCH (09:41)
[2021-12-24] MEDS: LEVETIRACETAM 500 MG GT SCH ×2 (09:41→21:17)
[2021-12-24] MEDS: Z GUARD REMEDY 4 OZ OINT TP SCH ×2 (09:42→21:17)
[2021-12-24] MEDS: MULTIVIT W/MINERALS 1 TAB TABLET GT SCH (09:42)
[2021-12-24] MEDS: HYDROGEN PEROXIDE 480 ML BOTTLE TP SCH ×2 (10:30→19:43)
[2021-12-24 12:18] VITALS: BP 124/75
[2021-12-24] MEDS: DIGOXIN 0.125 MG TABLET GT SCH (12:42)
[2021-12-24] MEDS: GLUCERNA 1.2 1,000 ML BOTTLE GT PRN (12:47)
[2021-12-24 19:46] VITALS: BP 139/60
[2021-12-24] MEDS: LATANOPROST EYE DROP 0.005% 2.5 ML BOTTLE EACHEYE SCH (21:17)
[2021-12-24] MEDS: TAMSULOSIN 0.4 MG CAP.SR.24H GT SCH (21:17)
[2021-12-24] MEDS: INSULIN GLARGINE, 100 UNIT/ML CARTRIDGE SQ SCH (21:18)
[2021-12-25 00:16] VITALS: BP 143/69
[2021-12-25] MEDS: IPRATROPIUM NEB FS 0.5 MG/2.5 ML AMPUL.NEB NEB SCH ×4 (02:14→20:08)
[2021-12-25] MEDS: ALBUTEROL FS 2.5 MG/0.5 ML VIAL.NEB NEB SCH ×4 (02:14→20:08)
[2021-12-25] MEDS: BLOOD SUGAR DIAGNOSTIC 1 EACH STRIP IN SCH ×3 (05:37→21:02)
[2021-12-25] MEDS: LEVOTHYROXINE SODIUM 125 MCG TABLET GT SCH (05:37)
[2021-12-25] MEDS: INSULIN ASPART/LISPRO 100 UNIT/ML CARTRIDGE SQ PRN ×3 (05:39→21:03)
[2021-12-25] MEDS: GLUCERNA 1.2 1,000 ML BOTTLE GT PRN (05:39)
[2021-12-25 07:23] VITALS: BP 145/79
[2021-12-25] MEDS: CHOLESTYRAMINE/ASPARTAME 4 G/PKT PACKET GT SCH (08:30)
[2021-12-25] MEDS: APIXABAN 2.5 MG TABLET GT SCH ×2 (09:20→16:21)
[2021-12-25] MEDS: FERROUS SULFATE - FOR SA ONLY 330 MG/7.5 ML UDC GT SCH ×3 (09:20→16:23)
[2021-12-25] MEDS: LEVETIRACETAM 500 MG GT SCH ×2 (09:21→21:02)
[2021-12-25] MEDS: JANUVIA 25 MG GT SCH (09:21)
[2021-12-25] MEDS: BACLOFEN 5 MG GT SCH ×2 (09:21→16:23)
[2021-12-25] MEDS: FAMOTIDINE (20 MG) 20 MG TABLET GT SCH (09:21)
[2021-12-25] MEDS: SIROLIMUS 1 MG GT SCH (09:21)
[2021-12-25] MEDS: Z GUARD REMEDY 4 OZ OINT TP SCH ×2 (09:22→21:02)
[2021-12-25] MEDS: MULTIVIT W/MINERALS 1 TAB TABLET GT SCH (09:22)
[2021-12-25] MEDS: PENLAC TP SCH (09:22)
[2021-12-25] MEDS: HYDROGEN PEROXIDE 480 ML BOTTLE TP SCH ×2 (09:37→20:08)
[2021-12-25 12:16] VITALS: BP 139/73
[2021-12-25] MEDS: DIGOXIN 0.125 MG TABLET GT SCH (12:19)
--- NOTE | 2021-12-25 15:31 | NUR ---
Latest Visitation Guidelines & Facility Update: DELMI informed pt.'s responsible libertarian, NANETTE via email that, "DELMI Facility Update: No [facility] employee tested positive for COVID-19 this week. Residents and staff will continue receiving routine testing. We will continue to implement [facility] infection control protocols and continue screening employees before every shift. [facility] continues to follow infection control protocols and screen our residents and staff daily for symptoms". DELMI also informed family that the visitation guidelines have not changed at this time.
[2021-12-25 19:19] VITALS: BP 157/72
[2021-12-25] MEDS: INSULIN GLARGINE, 100 UNIT/ML CARTRIDGE SQ SCH (21:02)
[2021-12-25] MEDS: TAMSULOSIN 0.4 MG CAP.SR.24H GT SCH (21:02)
[2021-12-25] MEDS: LATANOPROST EYE DROP 0.005% 2.5 ML BOTTLE EACHEYE SCH (21:02)
[2021-12-25 23:53] VITALS: BP 144/71
[2021-12-26] MEDS: ALBUTEROL FS 2.5 MG/0.5 ML VIAL.NEB NEB SCH ×4 (01:37→19:47)
[2021-12-26] MEDS: IPRATROPIUM NEB FS 0.5 MG/2.5 ML AMPUL.NEB NEB SCH ×4 (01:37→19:47)
[2021-12-26] MEDS: BLOOD SUGAR DIAGNOSTIC 1 EACH STRIP IN SCH ×3 (05:07→21:11)
[2021-12-26] MEDS: LEVOTHYROXINE SODIUM 125 MCG TABLET GT SCH (05:07)
[2021-12-26] MEDS: INSULIN ASPART/LISPRO 100 UNIT/ML CARTRIDGE SQ PRN ×3 (05:07→21:11)
[2021-12-26 07:10] VITALS: BP 118/65
[2021-12-26] MEDS: JANUVIA 25 MG GT SCH (09:15)
[2021-12-26] MEDS: SIROLIMUS 1 MG GT SCH (09:15)
[2021-12-26] MEDS: FAMOTIDINE (20 MG) 20 MG TABLET GT SCH (09:15)
[2021-12-26] MEDS: BACLOFEN 5 MG GT SCH ×2 (09:15→16:32)
[2021-12-26] MEDS: APIXABAN 2.5 MG TABLET GT SCH ×2 (09:15→16:32)
[2021-12-26] MEDS: LEVETIRACETAM 500 MG GT SCH ×2 (09:15→20:40)
[2021-12-26] MEDS: MULTIVIT W/MINERALS 1 TAB TABLET GT SCH (09:15)
[2021-12-26] MEDS: FERROUS SULFATE - FOR SA ONLY 330 MG/7.5 ML UDC GT SCH ×3 (09:15→16:32)
[2021-12-26] MEDS: CHOLESTYRAMINE/ASPARTAME 4 G/PKT PACKET GT SCH (09:15)
[2021-12-26] MEDS: Z GUARD REMEDY 4 OZ OINT TP SCH ×2 (09:16→20:40)
[2021-12-26] MEDS: HYDROGEN PEROXIDE 480 ML BOTTLE TP SCH ×2 (09:16→19:47)
[2021-12-26] MEDS: PENLAC TP SCH (09:27)
[2021-12-26] MEDS: DIGOXIN 0.125 MG TABLET GT SCH (12:33)
[2021-12-26 12:35] VITALS: BP 122/71
[2021-12-26 19:17] VITALS: BP 140/73
[2021-12-26] MEDS: LATANOPROST EYE DROP 0.005% 2.5 ML BOTTLE EACHEYE SCH (21:11)
[2021-12-26] MEDS: INSULIN GLARGINE, 100 UNIT/ML CARTRIDGE SQ SCH (21:11)
[2021-12-26] MEDS: TAMSULOSIN 0.4 MG CAP.SR.24H GT SCH (21:11)
[2021-12-27 00:05] VITALS: BP 127/65
[2021-12-27] MEDS: IPRATROPIUM NEB FS 0.5 MG/2.5 ML AMPUL.NEB NEB SCH ×4 (01:42→20:07)
[2021-12-27] MEDS: ALBUTEROL FS 2.5 MG/0.5 ML VIAL.NEB NEB SCH ×4 (01:42→20:07)
[2021-12-27] MEDS: LEVOTHYROXINE SODIUM 125 MCG TABLET GT SCH (05:15)
[2021-12-27] MEDS: BLOOD SUGAR DIAGNOSTIC 1 EACH STRIP IN SCH ×3 (05:15→21:57)
[2021-12-27] MEDS: INSULIN ASPART/LISPRO 100 UNIT/ML CARTRIDGE SQ PRN ×2 (05:16→12:46)
[2021-12-27 07:41] VITALS: BP 125/77
[2021-12-27] MEDS: HYDROGEN PEROXIDE 480 ML BOTTLE TP SCH ×2 (09:00→20:07)
[2021-12-27] MEDS: FERROUS SULFATE - FOR SA ONLY 330 MG/7.5 ML UDC GT SCH ×3 (09:04→16:38)
[2021-12-27] MEDS: APIXABAN 2.5 MG TABLET GT SCH ×2 (09:04→16:38)
[2021-12-27] MEDS: MULTIVIT W/MINERALS 1 TAB TABLET GT SCH (09:05)
[2021-12-27] MEDS: FAMOTIDINE (20 MG) 20 MG TABLET GT SCH (09:05)
[2021-12-27] MEDS: LEVETIRACETAM 500 MG GT SCH ×2 (09:05→21:57)
[2021-12-27] MEDS: BACLOFEN 5 MG GT SCH ×2 (09:05→16:38)
[2021-12-27] MEDS: JANUVIA 25 MG GT SCH (09:05)
[2021-12-27] MEDS: CHOLESTYRAMINE/ASPARTAME 4 G/PKT PACKET GT SCH (09:05)
[2021-12-27] MEDS: SIROLIMUS 1 MG GT SCH (09:05)
[2021-12-27] MEDS: Z GUARD REMEDY 4 OZ OINT TP SCH ×2 (09:06→21:57)
[2021-12-27] MEDS: PENLAC TP SCH (09:06)
[2021-12-27 12:15] VITALS: BP 122/71
[2021-12-27] MEDS: DIGOXIN 0.125 MG TABLET GT SCH (12:45)
[2021-12-27] MEDS: GLUCERNA 1.2 1,000 ML BOTTLE GT PRN (17:16)
[2021-12-27 19:57] VITALS: BP 140/69
[2021-12-27] MEDS: LATANOPROST EYE DROP 0.005% 2.5 ML BOTTLE EACHEYE SCH (21:57)
[2021-12-27] MEDS: TAMSULOSIN 0.4 MG CAP.SR.24H GT SCH (21:57)
[2021-12-27] MEDS: INSULIN GLARGINE, 100 UNIT/ML CARTRIDGE SQ SCH (21:58)
[2021-12-28 00:31] VITALS: BP 140/51
[2021-12-28] MEDS: ALBUTEROL FS 2.5 MG/0.5 ML VIAL.NEB NEB SCH ×4 (02:01→20:24)
[2021-12-28] MEDS: IPRATROPIUM NEB FS 0.5 MG/2.5 ML AMPUL.NEB NEB SCH ×4 (02:01→20:24)
[2021-12-28] MEDS: LEVOTHYROXINE SODIUM 125 MCG TABLET GT SCH (05:42)
[2021-12-28] MEDS: BLOOD SUGAR DIAGNOSTIC 1 EACH STRIP IN SCH ×3 (05:42→21:39)
[2021-12-28 08:04] VITALS: BP 138/64
[2021-12-28] MEDS: CHOLESTYRAMINE/ASPARTAME 4 G/PKT PACKET GT SCH (08:50)
[2021-12-28] MEDS: HYDROGEN PEROXIDE 480 ML BOTTLE TP SCH ×2 (09:13→21:11)
[2021-12-28] MEDS: FERROUS SULFATE - FOR SA ONLY 330 MG/7.5 ML UDC GT SCH ×3 (09:53→16:40)
[2021-12-28] MEDS: APIXABAN 2.5 MG TABLET GT SCH ×2 (09:53→16:40)
[2021-12-28] MEDS: SIROLIMUS 1 MG GT SCH (09:54)
[2021-12-28] MEDS: JANUVIA 25 MG GT SCH (09:54)
[2021-12-28] MEDS: LEVETIRACETAM 500 MG GT SCH ×2 (09:54→21:39)
[2021-12-28] MEDS: BACLOFEN 5 MG GT SCH ×2 (09:54→16:40)
[2021-12-28] MEDS: PENLAC TP SCH (09:55)
[2021-12-28] MEDS: FAMOTIDINE (20 MG) 20 MG TABLET GT SCH (09:55)
[2021-12-28] MEDS: MULTIVIT W/MINERALS 1 TAB TABLET GT SCH (09:55)
[2021-12-28] MEDS: Z GUARD REMEDY 4 OZ OINT TP SCH ×2 (09:55→21:39)
[2021-12-28 12:00] VITALS: BP 145/80
[2021-12-28] MEDS: DIGOXIN 0.125 MG TABLET GT SCH (13:00)
[2021-12-28] MEDS: INSULIN ASPART/LISPRO 100 UNIT/ML CARTRIDGE SQ PRN ×2 (13:01→21:41)
[2021-12-28] MEDS: GLUCERNA 1.2 1,000 ML BOTTLE GT PRN (13:02)
[2021-12-28 20:00] VITALS: BP 139/74
[2021-12-28] MEDS: LATANOPROST EYE DROP 0.005% 2.5 ML BOTTLE EACHEYE SCH (21:39)
[2021-12-28] MEDS: TAMSULOSIN 0.4 MG CAP.SR.24H GT SCH (21:39)
[2021-12-28] MEDS: INSULIN GLARGINE, 100 UNIT/ML CARTRIDGE SQ SCH (21:40)
[2021-12-29 01:25] VITALS: BP 130/72
[2021-12-29] MEDS: ALBUTEROL FS 2.5 MG/0.5 ML VIAL.NEB NEB SCH ×4 (01:47→20:05)
[2021-12-29] MEDS: IPRATROPIUM NEB FS 0.5 MG/2.5 ML AMPUL.NEB NEB SCH ×4 (01:47→20:05)
[2021-12-29] MEDS: BLOOD SUGAR DIAGNOSTIC 1 EACH STRIP IN SCH ×3 (05:51→21:44)
[2021-12-29] MEDS: LEVOTHYROXINE SODIUM 125 MCG TABLET GT SCH (05:51)
[2021-12-29] MEDS: INSULIN ASPART/LISPRO 100 UNIT/ML CARTRIDGE SQ PRN ×3 (06:04→21:46)
[2021-12-29 07:16] VITALS: BP 140/69
[2021-12-29] MEDS: CHOLESTYRAMINE/ASPARTAME 4 G/PKT PACKET GT SCH (08:38)
[2021-12-29] MEDS: HYDROGEN PEROXIDE 480 ML BOTTLE TP SCH ×2 (09:05→21:15)
[2021-12-29] MEDS: APIXABAN 2.5 MG TABLET GT SCH ×2 (09:42→17:12)
[2021-12-29] MEDS: SIROLIMUS 1 MG GT SCH (09:43)
[2021-12-29] MEDS: LEVETIRACETAM 500 MG GT SCH ×2 (09:43→21:44)
[2021-12-29] MEDS: FAMOTIDINE (20 MG) 20 MG TABLET GT SCH (09:43)
[2021-12-29] MEDS: FERROUS SULFATE - FOR SA ONLY 330 MG/7.5 ML UDC GT SCH ×3 (09:43→17:13)
[2021-12-29] MEDS: BACLOFEN 5 MG GT SCH ×2 (09:43→17:13)
[2021-12-29] MEDS: JANUVIA 25 MG GT SCH (09:43)
[2021-12-29] MEDS: Z GUARD REMEDY 4 OZ OINT TP SCH ×2 (09:44→21:44)
[2021-12-29] MEDS: MULTIVIT W/MINERALS 1 TAB TABLET GT SCH (09:44)
[2021-12-29] MEDS: PENLAC TP SCH (09:44)
[2021-12-29] MEDS: GLUCERNA 1.2 1,000 ML BOTTLE GT PRN (10:24)
[2021-12-29 12:03] VITALS: BP 141/80
[2021-12-29] MEDS: DIGOXIN 0.125 MG TABLET GT SCH (13:01)
[2021-12-29 20:10] VITALS: BP 114/59
[2021-12-29] MEDS: LATANOPROST EYE DROP 0.005% 2.5 ML BOTTLE EACHEYE SCH (21:44)
[2021-12-29] MEDS: TAMSULOSIN 0.4 MG CAP.SR.24H GT SCH (21:44)
[2021-12-29] MEDS: INSULIN GLARGINE, 100 UNIT/ML CARTRIDGE SQ SCH (21:45)
[2021-12-30] MEDS: ALBUTEROL FS 2.5 MG/0.5 ML VIAL.NEB NEB SCH ×4 (01:46→14:43)
[2021-12-30] MEDS: IPRATROPIUM NEB FS 0.5 MG/2.5 ML AMPUL.NEB NEB SCH ×4 (01:46→14:43)
[2021-12-30] MEDS: INSULIN ASPART/LISPRO 100 UNIT/ML CARTRIDGE SQ PRN ×2 (05:56→13:11)
[2021-12-30] MEDS: LEVOTHYROXINE SODIUM 125 MCG TABLET GT SCH (05:56)
[2021-12-30] MEDS: BLOOD SUGAR DIAGNOSTIC 1 EACH STRIP IN SCH ×3 (05:56→21:28)
[2021-12-30] MEDS: GLUCERNA 1.2 1,000 ML BOTTLE GT PRN (06:12)
[2021-12-30 07:34] VITALS: BP 103/60
[2021-12-30] MEDS: HYDROGEN PEROXIDE 480 ML BOTTLE TP SCH ×2 (09:18→20:04)
[2021-12-30] MEDS: FERROUS SULFATE - FOR SA ONLY 330 MG/7.5 ML UDC GT SCH ×3 (09:39→17:14)
[2021-12-30] MEDS: SIROLIMUS 1 MG GT SCH (09:39)
[2021-12-30] MEDS: BACLOFEN 5 MG GT SCH ×2 (09:39→17:14)
[2021-12-30] MEDS: MULTIVIT W/MINERALS 1 TAB TABLET GT SCH (09:39)
[2021-12-30] MEDS: PENLAC TP SCH (09:39)
[2021-12-30] MEDS: APIXABAN 2.5 MG TABLET GT SCH ×2 (09:39→17:14)
[2021-12-30] MEDS: JANUVIA 25 MG GT SCH (09:39)
[2021-12-30] MEDS: LEVETIRACETAM 500 MG GT SCH ×2 (09:39→21:28)
[2021-12-30] MEDS: FAMOTIDINE (20 MG) 20 MG TABLET GT SCH (09:39)
[2021-12-30] MEDS: Z GUARD REMEDY 4 OZ OINT TP SCH ×2 (09:39→21:28)
[2021-12-30] MEDS: CHOLESTYRAMINE/ASPARTAME 4 G/PKT PACKET GT SCH (09:39)
[2021-12-30 13:11] VITALS: BP 148/79
[2021-12-30] MEDS: DIGOXIN 0.125 MG TABLET GT SCH (13:11)
[2021-12-30 19:43] VITALS: BP 141/70
[2021-12-30] MEDS: TAMSULOSIN 0.4 MG CAP.SR.24H GT SCH (21:28)
[2021-12-30] MEDS: LATANOPROST EYE DROP 0.005% 2.5 ML BOTTLE EACHEYE SCH (21:28)
[2021-12-30] MEDS: INSULIN GLARGINE, 100 UNIT/ML CARTRIDGE SQ SCH (21:29)
[2021-12-31 00:21] VITALS: BP 136/65
[2021-12-31] MEDS: GLUCERNA 1.2 1,000 ML BOTTLE GT PRN ×2 (00:45→16:42)
[2021-12-31] MEDS: ALBUTEROL FS 2.5 MG/0.5 ML VIAL.NEB NEB SCH ×4 (01:40→20:23)
[2021-12-31] MEDS: IPRATROPIUM NEB FS 0.5 MG/2.5 ML AMPUL.NEB NEB SCH ×4 (01:40→20:23)
[2021-12-31] MEDS: BLOOD SUGAR DIAGNOSTIC 1 EACH STRIP IN SCH ×3 (05:55→20:50)
[2021-12-31] MEDS: LEVOTHYROXINE SODIUM 125 MCG TABLET GT SCH (05:55)
[2021-12-31] MEDS: INSULIN ASPART/LISPRO 100 UNIT/ML CARTRIDGE SQ PRN ×2 (05:55→20:50)
[2021-12-31 07:17] LABS: BASOPHILS % (AUTO) 0.2 % (0.0-2.0); HEMATOCRIT 31 % (39-51); LYMPHOCYTES % (AUTO) 15.7 % (20.0-44.0); MEAN CORPUSCULAR HGB CONC 32 g/dl (31.0-36.0); MEAN CORPUSCULAR VOLUME 95 fL (80-96); MONOCYTES # (AUTO) 0.6 K/uL (0.1-1.30); NEUTROPHILS # (AUTO) 4.5 K/uL (1.8-8.9); NEUTROPHILS % (AUTO) 70.1 % (43.0-81.0); PLATELET COUNT (AUTO) 129 K/uL (150-450); RED BLOOD CELL COUNT(AUTO) 3.29 MIL/uL (4.5-6.0); WHITE BLOOD COUNT (AUTO) 6.5 K/uL (4.3-11.0)
[2021-12-31 07:21] VITALS: BP 134/77
[2021-12-31 07:24] LABS: CALCIUM, SERUM 9.2 mg/dL (8.5-10.1); CARBON DIOXIDE 30 mmol/L (21-32); CHLORIDE 97 mmol/L (98-107); CREATININE 1.4 mg/dL (0.6-1.3); GLUCOSE 120 mg/dL (74-106); MAGNESIUM 2.4 mg/dL (1.8-2.4); PHOSPHORUS 4.1 mg/dL (2.5-4.9); POTASSIUM 4.1 mmol/L (3.5-5.1); SODIUM SERUM 132 mmol/L (136-145); UREA NITROGEN, BLOOD 29 mg/dL (7-18)
[2021-12-31] MEDS: HYDROGEN PEROXIDE 480 ML BOTTLE TP SCH ×2 (08:02→20:42)
[2021-12-31] MEDS: SIROLIMUS 1 MG GT SCH (09:07)
[2021-12-31] MEDS: JANUVIA 25 MG GT SCH (09:07)
[2021-12-31] MEDS: FERROUS SULFATE - FOR SA ONLY 330 MG/7.5 ML UDC GT SCH ×3 (09:07→16:35)
[2021-12-31] MEDS: FAMOTIDINE (20 MG) 20 MG TABLET GT SCH (09:07)
[2021-12-31] MEDS: LEVETIRACETAM 500 MG GT SCH ×2 (09:07→20:45)
[2021-12-31] MEDS: PENLAC TP SCH (09:07)
[2021-12-31] MEDS: CHOLESTYRAMINE/ASPARTAME 4 G/PKT PACKET GT SCH (09:07)
[2021-12-31] MEDS: MULTIVIT W/MINERALS 1 TAB TABLET GT SCH (09:07)
[2021-12-31] MEDS: Z GUARD REMEDY 4 OZ OINT TP SCH ×2 (09:07→20:45)
[2021-12-31] MEDS: BACLOFEN 5 MG GT SCH ×2 (09:07→16:36)
[2021-12-31] MEDS: APIXABAN 2.5 MG TABLET GT SCH ×2 (09:07→16:35)
[2021-12-31 12:14] VITALS: BP 124/73
[2021-12-31] MEDS: DIGOXIN 0.125 MG TABLET GT SCH (12:24)
[2021-12-31 20:25] VITALS: BP 131/64
--- NOTE | 2021-12-31 20:35 | NUR ---
Patient seen by LENKA Taylor. No new orders at this time.
[2021-12-31] MEDS: TAMSULOSIN 0.4 MG CAP.SR.24H GT SCH (21:08)
[2021-12-31] MEDS: LATANOPROST EYE DROP 0.005% 2.5 ML BOTTLE EACHEYE SCH (21:08)
[2021-12-31] MEDS: INSULIN GLARGINE, 100 UNIT/ML CARTRIDGE SQ SCH (21:08)
[2022-01-01 00:45] VITALS: BP 152/74
[2022-01-01] MEDS: ALBUTEROL FS 2.5 MG/0.5 ML VIAL.NEB NEB SCH ×4 (01:48→20:19)
[2022-01-01] MEDS: IPRATROPIUM NEB FS 0.5 MG/2.5 ML AMPUL.NEB NEB SCH ×4 (01:48→20:19)
[2022-01-01] MEDS: INSULIN ASPART/LISPRO 100 UNIT/ML CARTRIDGE SQ PRN ×3 (05:21→21:11)
[2022-01-01] MEDS: LEVOTHYROXINE SODIUM 125 MCG TABLET GT SCH (05:21)
[2022-01-01] MEDS: BLOOD SUGAR DIAGNOSTIC 1 EACH STRIP IN SCH ×3 (05:21→21:11)
[2022-01-01 07:34] VITALS: BP 147/68
[2022-01-01] MEDS: HYDROGEN PEROXIDE 480 ML BOTTLE TP SCH ×2 (08:15→20:19)
[2022-01-01] MEDS: MULTIVIT W/MINERALS 1 TAB TABLET GT SCH (09:08)
[2022-01-01] MEDS: JANUVIA 25 MG GT SCH (09:08)
[2022-01-01] MEDS: LEVETIRACETAM 500 MG GT SCH ×2 (09:08→20:37)
[2022-01-01] MEDS: FAMOTIDINE (20 MG) 20 MG TABLET GT SCH (09:08)
[2022-01-01] MEDS: PENLAC TP SCH (09:08)
[2022-01-01] MEDS: CHOLESTYRAMINE/ASPARTAME 4 G/PKT PACKET GT SCH (09:08)
[2022-01-01] MEDS: FERROUS SULFATE - FOR SA ONLY 330 MG/7.5 ML UDC GT SCH ×3 (09:08→17:49)
[2022-01-01] MEDS: BACLOFEN 5 MG GT SCH ×2 (09:08→17:49)
[2022-01-01] MEDS: SIROLIMUS 1 MG GT SCH (09:08)
[2022-01-01] MEDS: Z GUARD REMEDY 4 OZ OINT TP SCH ×2 (09:08→20:37)
[2022-01-01] MEDS: APIXABAN 2.5 MG TABLET GT SCH ×2 (09:51→17:48)
[2022-01-01 11:28] VITALS: BP 136/68
[2022-01-01] MEDS: DIGOXIN 0.125 MG TABLET GT SCH (12:40)
[2022-01-01] MEDS: GLUCERNA 1.2 1,000 ML BOTTLE GT PRN ×2 (12:40→20:37)
[2022-01-01 20:24] VITALS: BP 143/70
[2022-01-01] MEDS: INSULIN GLARGINE, 100 UNIT/ML CARTRIDGE SQ SCH (21:11)
[2022-01-01] MEDS: TAMSULOSIN 0.4 MG CAP.SR.24H GT SCH (21:11)
[2022-01-01] MEDS: LATANOPROST EYE DROP 0.005% 2.5 ML BOTTLE EACHEYE SCH (21:11)
[2022-01-02 01:27] VITALS: BP 124/62
[2022-01-02] MEDS: IPRATROPIUM NEB FS 0.5 MG/2.5 ML AMPUL.NEB NEB SCH ×4 (01:53→19:06)
[2022-01-02] MEDS: ALBUTEROL FS 2.5 MG/0.5 ML VIAL.NEB NEB SCH ×4 (01:53→19:06)
[2022-01-02] MEDS: LEVOTHYROXINE SODIUM 125 MCG TABLET GT SCH (05:29)
[2022-01-02] MEDS: INSULIN ASPART/LISPRO 100 UNIT/ML CARTRIDGE SQ PRN ×3 (05:29→21:09)
[2022-01-02] MEDS: BLOOD SUGAR DIAGNOSTIC 1 EACH STRIP IN SCH ×3 (05:29→21:08)
[2022-01-02] MEDS: GLUCERNA 1.2 1,000 ML BOTTLE GT PRN (05:29)
[2022-01-02 07:36] VITALS: BP 123/57
[2022-01-02] MEDS: HYDROGEN PEROXIDE 480 ML BOTTLE TP SCH ×2 (09:09→20:21)
[2022-01-02] MEDS: CHOLESTYRAMINE/ASPARTAME 4 G/PKT PACKET GT SCH (09:23)
[2022-01-02] MEDS: FERROUS SULFATE - FOR SA ONLY 330 MG/7.5 ML UDC GT SCH ×3 (09:23→16:53)
[2022-01-02] MEDS: FAMOTIDINE (20 MG) 20 MG TABLET GT SCH (09:23)
[2022-01-02] MEDS: LEVETIRACETAM 500 MG GT SCH ×2 (09:23→20:38)
[2022-01-02] MEDS: APIXABAN 2.5 MG TABLET GT SCH ×2 (09:23→16:53)
[2022-01-02] MEDS: Z GUARD REMEDY 4 OZ OINT TP SCH ×2 (09:23→20:38)
[2022-01-02] MEDS: PENLAC TP SCH (09:23)
[2022-01-02] MEDS: MULTIVIT W/MINERALS 1 TAB TABLET GT SCH (09:23)
[2022-01-02] MEDS: SIROLIMUS 1 MG GT SCH (09:23)
[2022-01-02] MEDS: BACLOFEN 5 MG GT SCH ×2 (09:23→16:53)
[2022-01-02] MEDS: JANUVIA 25 MG GT SCH (09:23)
[2022-01-02 11:47] VITALS: BP 138/72
[2022-01-02] MEDS: DIGOXIN 0.125 MG TABLET GT SCH (13:04)
[2022-01-02] MEDS: ACETAMINOPHEN 650 MG/20 ML UDC- SA PATIENTS-PAIN ONLY GT PRN (15:50)
[2022-01-02 19:47] VITALS: BP 137/57
[2022-01-02] MEDS: TAMSULOSIN 0.4 MG CAP.SR.24H GT SCH (21:08)
[2022-01-02] MEDS: INSULIN GLARGINE, 100 UNIT/ML CARTRIDGE SQ SCH (21:08)
[2022-01-02] MEDS: LATANOPROST EYE DROP 0.005% 2.5 ML BOTTLE EACHEYE SCH (21:08)
[2022-01-03] MEDS: IPRATROPIUM NEB FS 0.5 MG/2.5 ML AMPUL.NEB NEB SCH ×4 (00:35→20:13)
[2022-01-03] MEDS: ALBUTEROL FS 2.5 MG/0.5 ML VIAL.NEB NEB SCH ×4 (00:35→20:13)
[2022-01-03 01:33] VITALS: BP 129/80
[2022-01-03] MEDS: LEVOTHYROXINE SODIUM 125 MCG TABLET GT SCH (05:13)
[2022-01-03] MEDS: GLUCERNA 1.2 1,000 ML BOTTLE GT PRN (05:14)
[2022-01-03] MEDS: INSULIN ASPART/LISPRO 100 UNIT/ML CARTRIDGE SQ PRN ×3 (05:38→21:31)
[2022-01-03] MEDS: BLOOD SUGAR DIAGNOSTIC 1 EACH STRIP IN SCH ×3 (05:38→21:30)
[2022-01-03 07:24] VITALS: BP 158/67
[2022-01-03] MEDS: HYDROGEN PEROXIDE 480 ML BOTTLE TP SCH ×2 (09:27→23:24)
[2022-01-03] MEDS: CHOLESTYRAMINE/ASPARTAME 4 G/PKT PACKET GT SCH (09:33)
[2022-01-03] MEDS: MULTIVIT W/MINERALS 1 TAB TABLET GT SCH (09:33)
[2022-01-03] MEDS: BACLOFEN 5 MG GT SCH ×2 (09:33→17:28)
[2022-01-03] MEDS: APIXABAN 2.5 MG TABLET GT SCH ×2 (09:33→17:28)
[2022-01-03] MEDS: PENLAC TP SCH (09:33)
[2022-01-03] MEDS: Z GUARD REMEDY 4 OZ OINT TP SCH ×2 (09:33→21:30)
[2022-01-03] MEDS: SIROLIMUS 1 MG GT SCH (09:33)
[2022-01-03] MEDS: LEVETIRACETAM 500 MG GT SCH ×2 (09:33→21:30)
[2022-01-03] MEDS: FERROUS SULFATE - FOR SA ONLY 330 MG/7.5 ML UDC GT SCH ×3 (09:33→17:28)
[2022-01-03] MEDS: FAMOTIDINE (20 MG) 20 MG TABLET GT SCH (09:33)
[2022-01-03] MEDS: JANUVIA 25 MG GT SCH (09:33)
[2022-01-03 12:24] VITALS: BP 154/72
[2022-01-03] MEDS: DIGOXIN 0.125 MG TABLET GT SCH (13:57)
[2022-01-03 19:35] VITALS: BP 158/76
[2022-01-03] MEDS: LATANOPROST EYE DROP 0.005% 2.5 ML BOTTLE EACHEYE SCH (21:30)
[2022-01-03] MEDS: TAMSULOSIN 0.4 MG CAP.SR.24H GT SCH (21:30)
[2022-01-03] MEDS: INSULIN GLARGINE, 100 UNIT/ML CARTRIDGE SQ SCH (21:31)
[2022-01-04] MEDS: GLUCERNA 1.2 1,000 ML BOTTLE GT PRN ×2 (00:22→17:39)
[2022-01-04] MEDS: IPRATROPIUM NEB FS 0.5 MG/2.5 ML AMPUL.NEB NEB SCH ×4 (02:08→19:13)
[2022-01-04] MEDS: ALBUTEROL FS 2.5 MG/0.5 ML VIAL.NEB NEB SCH ×4 (02:08→19:13)
[2022-01-04] MEDS: BLOOD SUGAR DIAGNOSTIC 1 EACH STRIP IN SCH ×3 (05:33→21:46)
[2022-01-04] MEDS: LEVOTHYROXINE SODIUM 125 MCG TABLET GT SCH (05:33)
[2022-01-04] MEDS: INSULIN ASPART/LISPRO 100 UNIT/ML CARTRIDGE SQ PRN ×2 (05:34→12:26)
[2022-01-04 07:29] VITALS: BP 147/74
[2022-01-04] MEDS: HYDROGEN PEROXIDE 480 ML BOTTLE TP SCH ×2 (08:34→20:06)
[2022-01-04] MEDS: LEVETIRACETAM 500 MG GT SCH ×2 (09:00→21:46)
[2022-01-04] MEDS: JANUVIA 25 MG GT SCH (09:00)
[2022-01-04] MEDS: FAMOTIDINE (20 MG) 20 MG TABLET GT SCH (09:00)
[2022-01-04] MEDS: CHOLESTYRAMINE/ASPARTAME 4 G/PKT PACKET GT SCH (09:00)
[2022-01-04] MEDS: MULTIVIT W/MINERALS 1 TAB TABLET GT SCH (09:00)
[2022-01-04] MEDS: BACLOFEN 5 MG GT SCH ×2 (09:00→17:11)
[2022-01-04] MEDS: SIROLIMUS 1 MG GT SCH (09:00)
[2022-01-04] MEDS: APIXABAN 2.5 MG TABLET GT SCH ×2 (09:00→17:11)
[2022-01-04] MEDS: Z GUARD REMEDY 4 OZ OINT TP SCH ×2 (09:00→21:46)
[2022-01-04] MEDS: PENLAC TP SCH (09:00)
[2022-01-04] MEDS: FERROUS SULFATE - FOR SA ONLY 330 MG/7.5 ML UDC GT SCH ×3 (09:00→17:11)
[2022-01-04 12:06] VITALS: BP 157/86
[2022-01-04] MEDS: DIGOXIN 0.125 MG TABLET GT SCH (12:18)
[2022-01-04 19:38] VITALS: BP 138/75
[2022-01-04] MEDS: TAMSULOSIN 0.4 MG CAP.SR.24H GT SCH (21:46)
[2022-01-04] MEDS: LATANOPROST EYE DROP 0.005% 2.5 ML BOTTLE EACHEYE SCH (21:46)
[2022-01-04] MEDS: INSULIN GLARGINE, 100 UNIT/ML CARTRIDGE SQ SCH (21:46)
[2022-01-05] MEDS: ALBUTEROL FS 2.5 MG/0.5 ML VIAL.NEB NEB SCH ×4 (00:37→19:47)
[2022-01-05] MEDS: IPRATROPIUM NEB FS 0.5 MG/2.5 ML AMPUL.NEB NEB SCH ×4 (00:37→19:47)
[2022-01-05] MEDS: BLOOD SUGAR DIAGNOSTIC 1 EACH STRIP IN SCH ×3 (05:00→21:54)
[2022-01-05] MEDS: LEVOTHYROXINE SODIUM 125 MCG TABLET GT SCH (06:17)
[2022-01-05 07:29] VITALS: BP 110/65
[2022-01-05] MEDS: CHOLESTYRAMINE/ASPARTAME 4 G/PKT PACKET GT SCH (08:45)
[2022-01-05] MEDS: MULTIVIT W/MINERALS 1 TAB TABLET GT SCH (08:45)
[2022-01-05] MEDS: FERROUS SULFATE - FOR SA ONLY 330 MG/7.5 ML UDC GT SCH ×3 (08:45→16:55)
[2022-01-05] MEDS: LEVETIRACETAM 500 MG GT SCH ×2 (08:45→21:54)
[2022-01-05] MEDS: FAMOTIDINE (20 MG) 20 MG TABLET GT SCH (08:45)
[2022-01-05] MEDS: BACLOFEN 5 MG GT SCH ×2 (08:45→16:55)
[2022-01-05] MEDS: APIXABAN 2.5 MG TABLET GT SCH ×2 (08:45→16:55)
[2022-01-05] MEDS: JANUVIA 25 MG GT SCH (08:45)
[2022-01-05] MEDS: SIROLIMUS 1 MG GT SCH (08:45)
[2022-01-05] MEDS: PENLAC TP SCH (08:46)
[2022-01-05] MEDS: Z GUARD REMEDY 4 OZ OINT TP SCH ×2 (08:46→21:54)
[2022-01-05] MEDS: HYDROGEN PEROXIDE 480 ML BOTTLE TP SCH ×2 (09:20→21:00)
[2022-01-05 11:19] VITALS: BP 128/73
[2022-01-05] MEDS: GLUCERNA 1.2 1,000 ML BOTTLE GT PRN (12:00)
[2022-01-05] MEDS: DIGOXIN 0.125 MG TABLET GT SCH (12:11)
[2022-01-05 20:24] VITALS: BP 143/51
[2022-01-05] MEDS: TAMSULOSIN 0.4 MG CAP.SR.24H GT SCH (21:54)
[2022-01-05] MEDS: LATANOPROST EYE DROP 0.005% 2.5 ML BOTTLE EACHEYE SCH (21:54)
[2022-01-05] MEDS: INSULIN GLARGINE, 100 UNIT/ML CARTRIDGE SQ SCH (21:55)
[2022-01-06] MEDS: IPRATROPIUM NEB FS 0.5 MG/2.5 ML AMPUL.NEB NEB SCH ×4 (01:30→19:38)
[2022-01-06] MEDS: ALBUTEROL FS 2.5 MG/0.5 ML VIAL.NEB NEB SCH ×4 (01:30→19:38)
[2022-01-06] MEDS: BLOOD SUGAR DIAGNOSTIC 1 EACH STRIP IN SCH ×3 (05:55→21:42)
[2022-01-06] MEDS: LEVOTHYROXINE SODIUM 125 MCG TABLET GT SCH (06:05)
[2022-01-06] MEDS: INSULIN ASPART/LISPRO 100 UNIT/ML CARTRIDGE SQ PRN (06:06)
[2022-01-06] MEDS: GLUCERNA 1.2 1,000 ML BOTTLE GT PRN ×2 (06:17→21:43)
[2022-01-06 07:42] VITALS: BP_SYST 111; BP_SYST 144; BP_DIAS 60; BP_DIAS 69
[2022-01-06] MEDS: JANUVIA 25 MG GT SCH (09:36)
[2022-01-06] MEDS: LEVETIRACETAM 500 MG GT SCH ×2 (09:36→21:42)
[2022-01-06] MEDS: PENLAC TP SCH (09:36)
[2022-01-06] MEDS: FERROUS SULFATE - FOR SA ONLY 330 MG/7.5 ML UDC GT SCH ×3 (09:36→17:11)
[2022-01-06] MEDS: BACLOFEN 5 MG GT SCH ×2 (09:36→17:11)
[2022-01-06] MEDS: SIROLIMUS 1 MG GT SCH (09:36)
[2022-01-06] MEDS: Z GUARD REMEDY 4 OZ OINT TP SCH ×2 (09:36→21:42)
[2022-01-06] MEDS: CHOLESTYRAMINE/ASPARTAME 4 G/PKT PACKET GT SCH (09:36)
[2022-01-06] MEDS: APIXABAN 2.5 MG TABLET GT SCH ×2 (09:36→17:11)
[2022-01-06] MEDS: FAMOTIDINE (20 MG) 20 MG TABLET GT SCH (09:36)
[2022-01-06] MEDS: MULTIVIT W/MINERALS 1 TAB TABLET GT SCH (09:36)
[2022-01-06] MEDS: HYDROGEN PEROXIDE 480 ML BOTTLE TP SCH ×2 (10:05→19:39)
[2022-01-06 12:23] VITALS: BP 132/75
[2022-01-06] MEDS: DIGOXIN 0.125 MG TABLET GT SCH (12:25)
[2022-01-06 20:48] VITALS: BP 140/67
[2022-01-06] MEDS: TAMSULOSIN 0.4 MG CAP.SR.24H GT SCH (21:42)
[2022-01-06] MEDS: LATANOPROST EYE DROP 0.005% 2.5 ML BOTTLE EACHEYE SCH (21:42)
[2022-01-06] MEDS: INSULIN GLARGINE, 100 UNIT/ML CARTRIDGE SQ SCH (21:43)
[2022-01-07 01:03] VITALS: BP 118/65
[2022-01-07] MEDS: ALBUTEROL FS 2.5 MG/0.5 ML VIAL.NEB NEB SCH ×4 (01:58→20:08)
[2022-01-07] MEDS: IPRATROPIUM NEB FS 0.5 MG/2.5 ML AMPUL.NEB NEB SCH ×4 (01:58→20:08)
[2022-01-07] MEDS: LEVOTHYROXINE SODIUM 125 MCG TABLET GT SCH (05:55)
[2022-01-07] MEDS: BLOOD SUGAR DIAGNOSTIC 1 EACH STRIP IN SCH ×3 (05:55→21:21)
[2022-01-07] MEDS: INSULIN ASPART/LISPRO 100 UNIT/ML CARTRIDGE SQ PRN ×3 (05:56→21:24)
[2022-01-07 07:33] VITALS: BP 149/67
[2022-01-07] MEDS: CHOLESTYRAMINE/ASPARTAME 4 G/PKT PACKET GT SCH (08:10)
[2022-01-07] MEDS: HYDROGEN PEROXIDE 480 ML BOTTLE TP SCH ×2 (08:17→20:08)
[2022-01-07] MEDS: JANUVIA 25 MG GT SCH (09:44)
[2022-01-07] MEDS: APIXABAN 2.5 MG TABLET GT SCH ×2 (09:44→17:55)
[2022-01-07] MEDS: FERROUS SULFATE - FOR SA ONLY 330 MG/7.5 ML UDC GT SCH ×3 (09:44→17:55)
[2022-01-07] MEDS: SIROLIMUS 1 MG GT SCH (09:44)
[2022-01-07] MEDS: FAMOTIDINE (20 MG) 20 MG TABLET GT SCH (09:45)
[2022-01-07] MEDS: LEVETIRACETAM 500 MG GT SCH ×2 (09:45→21:21)
[2022-01-07] MEDS: BACLOFEN 5 MG GT SCH ×2 (09:45→17:55)
[2022-01-07] MEDS: MULTIVIT W/MINERALS 1 TAB TABLET GT SCH (09:45)
[2022-01-07] MEDS: Z GUARD REMEDY 4 OZ OINT TP SCH ×2 (09:46→21:21)
[2022-01-07] MEDS: PENLAC TP SCH (09:46)
[2022-01-07 12:18] VITALS: BP 136/60
[2022-01-07] MEDS: DIGOXIN 0.125 MG TABLET GT SCH (13:32)
[2022-01-07] MEDS: GLUCERNA 1.2 1,000 ML BOTTLE GT PRN (17:56)
[2022-01-07 19:50] VITALS: BP 142/74
[2022-01-07] MEDS: LATANOPROST EYE DROP 0.005% 2.5 ML BOTTLE EACHEYE SCH (21:21)
[2022-01-07] MEDS: TAMSULOSIN 0.4 MG CAP.SR.24H GT SCH (21:21)
[2022-01-07] MEDS: INSULIN GLARGINE, 100 UNIT/ML CARTRIDGE SQ SCH (21:22)
[2022-01-08 00:09] VITALS: BP 136/68
[2022-01-08] MEDS: IPRATROPIUM NEB FS 0.5 MG/2.5 ML AMPUL.NEB NEB SCH ×4 (01:47→20:05)
[2022-01-08] MEDS: ALBUTEROL FS 2.5 MG/0.5 ML VIAL.NEB NEB SCH ×4 (01:47→20:05)
[2022-01-08] MEDS: BLOOD SUGAR DIAGNOSTIC 1 EACH STRIP IN SCH ×3 (05:55→21:17)
[2022-01-08] MEDS: LEVOTHYROXINE SODIUM 125 MCG TABLET GT SCH (05:55)
[2022-01-08] MEDS: INSULIN ASPART/LISPRO 100 UNIT/ML CARTRIDGE SQ PRN ×3 (05:56→21:19)
[2022-01-08 07:37] VITALS: BP 145/68
[2022-01-08] MEDS: HYDROGEN PEROXIDE 480 ML BOTTLE TP SCH ×2 (08:51→20:05)
[2022-01-08] MEDS: APIXABAN 2.5 MG TABLET GT SCH ×2 (09:00→17:14)
[2022-01-08] MEDS: LEVETIRACETAM 500 MG GT SCH ×2 (09:22→21:17)
[2022-01-08] MEDS: SIROLIMUS 1 MG GT SCH (09:22)
[2022-01-08] MEDS: FERROUS SULFATE - FOR SA ONLY 330 MG/7.5 ML UDC GT SCH ×3 (09:22→17:15)
[2022-01-08] MEDS: JANUVIA 25 MG GT SCH (09:22)
[2022-01-08] MEDS: MULTIVIT W/MINERALS 1 TAB TABLET GT SCH (09:23)
[2022-01-08] MEDS: Z GUARD REMEDY 4 OZ OINT TP SCH ×2 (09:23→21:17)
[2022-01-08] MEDS: PENLAC TP SCH (09:23)
[2022-01-08] MEDS: BACLOFEN 5 MG GT SCH ×2 (09:23→17:15)
[2022-01-08] MEDS: FAMOTIDINE (20 MG) 20 MG TABLET GT SCH (09:23)
[2022-01-08] MEDS: CHOLESTYRAMINE/ASPARTAME 4 G/PKT PACKET GT SCH (09:23)
[2022-01-08 12:26] VITALS: BP 156/89
[2022-01-08] MEDS: DIGOXIN 0.125 MG TABLET GT SCH (13:03)
--- NOTE | 2022-01-08 17:05 | NUR ---
Latest Visitation Guidelines & Facility Update: DELMI informed pt.'s responsible democrat, Trevon via email that, "SW Facility Update: No [facility] employee tested positive for COVID-19 this week. Residents and staff will continue receiving routine testing. We will continue to implement [facility] infection control protocols and continue screening employees before every shift. [facility] continues to follow infection control protocols and screen our residents and staff daily for symptoms". DELMI also informed family that the visitation guidelines have not changed at this time and notified them that per [facility], when transmission rate lowers to moderate, fully vaccinated and boosted visitors will not need to show proof of negative COVID test.
[2022-01-08] MEDS: GLUCERNA 1.2 1,000 ML BOTTLE GT PRN (17:15)
[2022-01-08 19:32] VITALS: BP 154/72
[2022-01-08] MEDS: TAMSULOSIN 0.4 MG CAP.SR.24H GT SCH (21:17)
[2022-01-08] MEDS: LATANOPROST EYE DROP 0.005% 2.5 ML BOTTLE EACHEYE SCH (21:17)
[2022-01-08] MEDS: INSULIN GLARGINE, 100 UNIT/ML CARTRIDGE SQ SCH (21:18)
[2022-01-08 23:57] VITALS: BP 124/71
[2022-01-09] MEDS: IPRATROPIUM NEB FS 0.5 MG/2.5 ML AMPUL.NEB NEB SCH ×4 (00:40→19:34)
[2022-01-09] MEDS: ALBUTEROL FS 2.5 MG/0.5 ML VIAL.NEB NEB SCH ×4 (00:40→19:34)
[2022-01-09] MEDS: BLOOD SUGAR DIAGNOSTIC 1 EACH STRIP IN SCH ×3 (05:57→21:20)
[2022-01-09] MEDS: LEVOTHYROXINE SODIUM 125 MCG TABLET GT SCH (05:57)
[2022-01-09] MEDS: INSULIN ASPART/LISPRO 100 UNIT/ML CARTRIDGE SQ PRN ×3 (06:07→21:21)
[2022-01-09 07:35] VITALS: BP 127/64
[2022-01-09] MEDS: APIXABAN 2.5 MG TABLET GT SCH ×2 (09:30→17:23)
[2022-01-09] MEDS: FAMOTIDINE (20 MG) 20 MG TABLET GT SCH (09:30)
[2022-01-09] MEDS: JANUVIA 25 MG GT SCH (09:30)
[2022-01-09] MEDS: FERROUS SULFATE - FOR SA ONLY 330 MG/7.5 ML UDC GT SCH ×3 (09:30→17:23)
[2022-01-09] MEDS: BACLOFEN 5 MG GT SCH ×2 (09:30→17:23)
[2022-01-09] MEDS: MULTIVIT W/MINERALS 1 TAB TABLET GT SCH (09:30)
[2022-01-09] MEDS: SIROLIMUS 1 MG GT SCH (09:30)
[2022-01-09] MEDS: LEVETIRACETAM 500 MG GT SCH ×2 (09:30→21:20)
[2022-01-09] MEDS: CHOLESTYRAMINE/ASPARTAME 4 G/PKT PACKET GT SCH (09:30)
[2022-01-09] MEDS: HYDROGEN PEROXIDE 480 ML BOTTLE TP SCH ×2 (09:31→19:34)
[2022-01-09] MEDS: PENLAC TP SCH (09:31)
[2022-01-09] MEDS: Z GUARD REMEDY 4 OZ OINT TP SCH ×2 (09:31→21:20)
[2022-01-09] MEDS: GLUCERNA 1.2 1,000 ML BOTTLE GT PRN (10:35)
[2022-01-09 12:22] VITALS: BP 128/63
[2022-01-09] MEDS: DIGOXIN 0.125 MG TABLET GT SCH (12:39)
[2022-01-09 19:49] VITALS: BP 123/55
[2022-01-09] MEDS: TAMSULOSIN 0.4 MG CAP.SR.24H GT SCH (21:20)
[2022-01-09] MEDS: LATANOPROST EYE DROP 0.005% 2.5 ML BOTTLE EACHEYE SCH (21:20)
[2022-01-09] MEDS: INSULIN GLARGINE, 100 UNIT/ML CARTRIDGE SQ SCH (21:21)
[2022-01-09 23:31] VITALS: BP 137/71
[2022-01-10] MEDS: IPRATROPIUM NEB FS 0.5 MG/2.5 ML AMPUL.NEB NEB SCH ×4 (02:03→19:41)
[2022-01-10] MEDS: ALBUTEROL FS 2.5 MG/0.5 ML VIAL.NEB NEB SCH ×4 (02:03→19:41)
[2022-01-10] MEDS: LEVOTHYROXINE SODIUM 125 MCG TABLET GT SCH (05:22)
[2022-01-10] MEDS: BLOOD SUGAR DIAGNOSTIC 1 EACH STRIP IN SCH ×3 (05:22→20:48)
[2022-01-10] MEDS: INSULIN ASPART/LISPRO 100 UNIT/ML CARTRIDGE SQ PRN ×2 (05:23→20:51)
[2022-01-10] MEDS: GLUCERNA 1.2 1,000 ML BOTTLE GT PRN (05:23)
[2022-01-10 07:35] VITALS: BP 142/70
[2022-01-10] MEDS: HYDROGEN PEROXIDE 480 ML BOTTLE TP SCH ×2 (08:52→19:41)
[2022-01-10] MEDS: LEVETIRACETAM 500 MG GT SCH ×2 (09:00→20:48)
[2022-01-10] MEDS: FAMOTIDINE (20 MG) 20 MG TABLET GT SCH (09:00)
[2022-01-10] MEDS: FERROUS SULFATE - FOR SA ONLY 330 MG/7.5 ML UDC GT SCH ×3 (09:00→17:41)
[2022-01-10] MEDS: Z GUARD REMEDY 4 OZ OINT TP SCH ×2 (09:00→20:48)
[2022-01-10] MEDS: BACLOFEN 5 MG GT SCH ×2 (09:00→17:41)
[2022-01-10] MEDS: SIROLIMUS 1 MG GT SCH (09:00)
[2022-01-10] MEDS: JANUVIA 25 MG GT SCH (09:00)
[2022-01-10] MEDS: PENLAC TP SCH (09:00)
[2022-01-10] MEDS: APIXABAN 2.5 MG TABLET GT SCH ×2 (09:00→17:41)
[2022-01-10] MEDS: CHOLESTYRAMINE/ASPARTAME 4 G/PKT PACKET GT SCH (09:00)
[2022-01-10] MEDS: MULTIVIT W/MINERALS 1 TAB TABLET GT SCH (09:00)
[2022-01-10] MEDS: DIGOXIN 0.125 MG TABLET GT SCH (12:24)
[2022-01-10 12:33] VITALS: BP 130/67
[2022-01-10 19:45] VITALS: BP 135/80
[2022-01-10] MEDS: LATANOPROST EYE DROP 0.005% 2.5 ML BOTTLE EACHEYE SCH (21:31)
[2022-01-10] MEDS: TAMSULOSIN 0.4 MG CAP.SR.24H GT SCH (21:31)
[2022-01-10] MEDS: INSULIN GLARGINE, 100 UNIT/ML CARTRIDGE SQ SCH (21:32)
[2022-01-11] MEDS: IPRATROPIUM NEB FS 0.5 MG/2.5 ML AMPUL.NEB NEB SCH ×4 (02:11→19:53)
[2022-01-11] MEDS: ALBUTEROL FS 2.5 MG/0.5 ML VIAL.NEB NEB SCH ×4 (02:11→19:53)
[2022-01-11] MEDS: GLUCERNA 1.2 1,000 ML BOTTLE GT PRN ×2 (04:18→21:43)
[2022-01-11] MEDS: INSULIN ASPART/LISPRO 100 UNIT/ML CARTRIDGE SQ PRN ×3 (04:30→20:39)
[2022-01-11] MEDS: BLOOD SUGAR DIAGNOSTIC 1 EACH STRIP IN SCH ×3 (04:30→20:32)
[2022-01-11] MEDS: LEVOTHYROXINE SODIUM 125 MCG TABLET GT SCH (05:26)
[2022-01-11 07:18] VITALS: BP 149/68
[2022-01-11] MEDS: HYDROGEN PEROXIDE 480 ML BOTTLE TP SCH ×2 (09:00→20:10)
[2022-01-11] MEDS: MULTIVIT W/MINERALS 1 TAB TABLET GT SCH (09:20)
[2022-01-11] MEDS: FERROUS SULFATE - FOR SA ONLY 330 MG/7.5 ML UDC GT SCH ×3 (09:20→16:42)
[2022-01-11] MEDS: SIROLIMUS 1 MG GT SCH (09:20)
[2022-01-11] MEDS: FAMOTIDINE (20 MG) 20 MG TABLET GT SCH (09:20)
[2022-01-11] MEDS: LEVETIRACETAM 500 MG GT SCH ×2 (09:20→20:32)
[2022-01-11] MEDS: BACLOFEN 5 MG GT SCH ×2 (09:20→16:42)
[2022-01-11] MEDS: CHOLESTYRAMINE/ASPARTAME 4 G/PKT PACKET GT SCH (09:20)
[2022-01-11] MEDS: JANUVIA 25 MG GT SCH (09:20)
[2022-01-11] MEDS: APIXABAN 2.5 MG TABLET GT SCH ×2 (09:20→16:41)
[2022-01-11] MEDS: Z GUARD REMEDY 4 OZ OINT TP SCH ×2 (09:21→20:32)
[2022-01-11] MEDS: PENLAC TP SCH (09:21)
[2022-01-11 12:18] VITALS: BP 155/93
[2022-01-11] MEDS: DIGOXIN 0.125 MG TABLET GT SCH (12:25)
--- NOTE | 2022-01-11 13:00 | NUR ---
Seen and examined by Dr. Fritz, no new order given.
[2022-01-11 20:31] VITALS: BP 126/65
[2022-01-11] MEDS: LATANOPROST EYE DROP 0.005% 2.5 ML BOTTLE EACHEYE SCH (21:21)
[2022-01-11] MEDS: TAMSULOSIN 0.4 MG CAP.SR.24H GT SCH (21:21)
[2022-01-11] MEDS: INSULIN GLARGINE, 100 UNIT/ML CARTRIDGE SQ SCH (21:21)
[2022-01-12] MEDS: IPRATROPIUM NEB FS 0.5 MG/2.5 ML AMPUL.NEB NEB SCH ×4 (00:34→19:26)
[2022-01-12] MEDS: ALBUTEROL FS 2.5 MG/0.5 ML VIAL.NEB NEB SCH ×4 (00:34→19:26)
[2022-01-12] MEDS: LEVOTHYROXINE SODIUM 125 MCG TABLET GT SCH (05:46)
[2022-01-12] MEDS: BLOOD SUGAR DIAGNOSTIC 1 EACH STRIP IN SCH ×3 (05:46→21:29)
[2022-01-12] MEDS: INSULIN ASPART/LISPRO 100 UNIT/ML CARTRIDGE SQ PRN ×3 (05:47→22:09)
[2022-01-12 07:26] VITALS: BP 139/82
[2022-01-12] MEDS: JANUVIA 25 MG GT SCH (08:59)
[2022-01-12] MEDS: FERROUS SULFATE - FOR SA ONLY 330 MG/7.5 ML UDC GT SCH ×3 (08:59→17:02)
[2022-01-12] MEDS: SIROLIMUS 1 MG GT SCH (08:59)
[2022-01-12] MEDS: LEVETIRACETAM 500 MG GT SCH ×2 (08:59→21:15)
[2022-01-12] MEDS: APIXABAN 2.5 MG TABLET GT SCH ×2 (08:59→17:02)
[2022-01-12] MEDS: CHOLESTYRAMINE/ASPARTAME 4 G/PKT PACKET GT SCH (09:00)
[2022-01-12] MEDS: FAMOTIDINE (20 MG) 20 MG TABLET GT SCH (09:00)
[2022-01-12] MEDS: BACLOFEN 5 MG GT SCH ×2 (09:00→17:02)
[2022-01-12] MEDS: MULTIVIT W/MINERALS 1 TAB TABLET GT SCH (09:00)
[2022-01-12] MEDS: Z GUARD REMEDY 4 OZ OINT TP SCH ×2 (09:01→21:16)
[2022-01-12] MEDS: PENLAC TP SCH (09:01)
[2022-01-12] MEDS: HYDROGEN PEROXIDE 480 ML BOTTLE TP SCH ×2 (09:06→19:26)
[2022-01-12] MEDS: DIGOXIN 0.125 MG TABLET GT SCH (12:28)
[2022-01-12 12:29] VITALS: BP 145/80
[2022-01-12 19:30] VITALS: BP 140/60
[2022-01-12] MEDS: LATANOPROST EYE DROP 0.005% 2.5 ML BOTTLE EACHEYE SCH (21:16)
[2022-01-12] MEDS: TAMSULOSIN 0.4 MG CAP.SR.24H GT SCH (21:16)
[2022-01-12] MEDS: INSULIN GLARGINE, 100 UNIT/ML CARTRIDGE SQ SCH (22:11)
[2022-01-12 22:56] VITALS: BP 140/60
[2022-01-12] MEDS: GLUCERNA 1.2 1,000 ML BOTTLE GT PRN (23:30)
[2022-01-13] MEDS: ALBUTEROL FS 2.5 MG/0.5 ML VIAL.NEB NEB SCH ×4 (02:06→20:07)
[2022-01-13] MEDS: IPRATROPIUM NEB FS 0.5 MG/2.5 ML AMPUL.NEB NEB SCH ×4 (02:06→20:07)
[2022-01-13] MEDS: BLOOD SUGAR DIAGNOSTIC 1 EACH STRIP IN SCH ×3 (05:25→21:22)
[2022-01-13] MEDS: INSULIN ASPART/LISPRO 100 UNIT/ML CARTRIDGE SQ PRN ×3 (05:26→21:24)
[2022-01-13] MEDS: LEVOTHYROXINE SODIUM 125 MCG TABLET GT SCH (05:27)
[2022-01-13 07:36] VITALS: BP 124/91
[2022-01-13] MEDS: APIXABAN 2.5 MG TABLET GT SCH ×2 (09:18→17:23)
[2022-01-13] MEDS: FERROUS SULFATE - FOR SA ONLY 330 MG/7.5 ML UDC GT SCH ×3 (09:18→17:23)
[2022-01-13] MEDS: JANUVIA 25 MG GT SCH (09:18)
[2022-01-13] MEDS: MULTIVIT W/MINERALS 1 TAB TABLET GT SCH (09:19)
[2022-01-13] MEDS: SIROLIMUS 1 MG GT SCH (09:19)
[2022-01-13] MEDS: BACLOFEN 5 MG GT SCH ×2 (09:19→17:23)
[2022-01-13] MEDS: FAMOTIDINE (20 MG) 20 MG TABLET GT SCH (09:19)
[2022-01-13] MEDS: CHOLESTYRAMINE/ASPARTAME 4 G/PKT PACKET GT SCH (09:19)
[2022-01-13] MEDS: LEVETIRACETAM 500 MG GT SCH ×2 (09:19→21:22)
[2022-01-13] MEDS: PENLAC TP SCH (09:19)
[2022-01-13] MEDS: Z GUARD REMEDY 4 OZ OINT TP SCH ×2 (09:20→21:23)
[2022-01-13] MEDS: HYDROGEN PEROXIDE 480 ML BOTTLE TP SCH ×2 (09:35→20:07)
[2022-01-13] MEDS: DIGOXIN 0.125 MG TABLET GT SCH (12:38)
[2022-01-13] MEDS: GLUCERNA 1.2 1,000 ML BOTTLE GT PRN (17:23)
[2022-01-13 20:22] VITALS: BP 150/76
[2022-01-13] MEDS: LATANOPROST EYE DROP 0.005% 2.5 ML BOTTLE EACHEYE SCH (21:23)
[2022-01-13] MEDS: TAMSULOSIN 0.4 MG CAP.SR.24H GT SCH (21:23)
[2022-01-13] MEDS: INSULIN GLARGINE, 100 UNIT/ML CARTRIDGE SQ SCH (21:23)
[2022-01-14] MEDS: IPRATROPIUM NEB FS 0.5 MG/2.5 ML AMPUL.NEB NEB SCH ×4 (01:53→19:52)
[2022-01-14] MEDS: ALBUTEROL FS 2.5 MG/0.5 ML VIAL.NEB NEB SCH ×4 (01:53→19:52)
[2022-01-14] MEDS: BLOOD SUGAR DIAGNOSTIC 1 EACH STRIP IN SCH ×3 (05:21→21:16)
[2022-01-14] MEDS: LEVOTHYROXINE SODIUM 125 MCG TABLET GT SCH (05:21)
[2022-01-14 07:23] VITALS: BP 145/63
[2022-01-14] MEDS: HYDROGEN PEROXIDE 480 ML BOTTLE TP SCH ×2 (09:25→19:52)
[2022-01-14] MEDS: JANUVIA 25 MG GT SCH (09:36)
[2022-01-14] MEDS: APIXABAN 2.5 MG TABLET GT SCH ×2 (09:36→16:55)
[2022-01-14] MEDS: FERROUS SULFATE - FOR SA ONLY 330 MG/7.5 ML UDC GT SCH ×3 (09:36→16:55)
[2022-01-14] MEDS: MULTIVIT W/MINERALS 1 TAB TABLET GT SCH (09:36)
[2022-01-14] MEDS: Z GUARD REMEDY 4 OZ OINT TP SCH ×2 (09:36→21:13)
[2022-01-14] MEDS: BACLOFEN 5 MG GT SCH ×2 (09:36→16:55)
[2022-01-14] MEDS: LEVETIRACETAM 500 MG GT SCH ×2 (09:36→21:13)
[2022-01-14] MEDS: FAMOTIDINE (20 MG) 20 MG TABLET GT SCH (09:36)
[2022-01-14] MEDS: SIROLIMUS 1 MG GT SCH (09:36)
[2022-01-14] MEDS: CHOLESTYRAMINE/ASPARTAME 4 G/PKT PACKET GT SCH (09:36)
[2022-01-14] MEDS: PENLAC TP SCH (09:36)
[2022-01-14 13:10] VITALS: BP 149/74
[2022-01-14] MEDS: DIGOXIN 0.125 MG TABLET GT SCH (13:25)
[2022-01-14] MEDS: INSULIN ASPART/LISPRO 100 UNIT/ML CARTRIDGE SQ PRN ×2 (13:26→21:18)
[2022-01-14] MEDS: GLUCERNA 1.2 1,000 ML BOTTLE GT PRN (13:26)
[2022-01-14 19:38] VITALS: BP 148/69
[2022-01-14] MEDS: LATANOPROST EYE DROP 0.005% 2.5 ML BOTTLE EACHEYE SCH (21:13)
[2022-01-14] MEDS: TAMSULOSIN 0.4 MG CAP.SR.24H GT SCH (21:13)
[2022-01-14] MEDS: INSULIN GLARGINE, 100 UNIT/ML CARTRIDGE SQ SCH (21:18)
[2022-01-15 00:19] VITALS: BP 128/74
[2022-01-15] MEDS: IPRATROPIUM NEB FS 0.5 MG/2.5 ML AMPUL.NEB NEB SCH ×4 (02:14→20:24)
[2022-01-15] MEDS: ALBUTEROL FS 2.5 MG/0.5 ML VIAL.NEB NEB SCH ×4 (02:14→20:24)
[2022-01-15] MEDS: LEVOTHYROXINE SODIUM 125 MCG TABLET GT SCH (05:40)
[2022-01-15] MEDS: BLOOD SUGAR DIAGNOSTIC 1 EACH STRIP IN SCH ×3 (05:40→21:12)
[2022-01-15] MEDS: INSULIN ASPART/LISPRO 100 UNIT/ML CARTRIDGE SQ PRN ×3 (05:40→21:14)
[2022-01-15 07:46] VITALS: BP 116/74
[2022-01-15] MEDS: HYDROGEN PEROXIDE 480 ML BOTTLE TP SCH ×2 (09:28→20:24)
[2022-01-15] MEDS: SIROLIMUS 1 MG GT SCH (09:39)
[2022-01-15] MEDS: FAMOTIDINE (20 MG) 20 MG TABLET GT SCH (09:39)
[2022-01-15] MEDS: LEVETIRACETAM 500 MG GT SCH ×2 (09:39→21:12)
[2022-01-15] MEDS: APIXABAN 2.5 MG TABLET GT SCH ×2 (09:39→17:55)
[2022-01-15] MEDS: BACLOFEN 5 MG GT SCH ×2 (09:39→17:56)
[2022-01-15] MEDS: FERROUS SULFATE - FOR SA ONLY 330 MG/7.5 ML UDC GT SCH ×3 (09:39→17:56)
[2022-01-15] MEDS: JANUVIA 25 MG GT SCH (09:39)
[2022-01-15] MEDS: CHOLESTYRAMINE/ASPARTAME 4 G/PKT PACKET GT SCH (09:39)
[2022-01-15] MEDS: MULTIVIT W/MINERALS 1 TAB TABLET GT SCH (09:39)
[2022-01-15] MEDS: Z GUARD REMEDY 4 OZ OINT TP SCH ×2 (09:40→21:12)
[2022-01-15] MEDS: PENLAC TP SCH (09:40)
[2022-01-15 12:01] VITALS: BP 140/89
[2022-01-15] MEDS: GLUCERNA 1.2 1,000 ML BOTTLE GT PRN (13:16)
[2022-01-15] MEDS: DIGOXIN 0.125 MG TABLET GT SCH (13:16)
--- NOTE | 2022-01-15 14:33 | NUR ---
INTERDISCIPLINARY PLAN OF CARE CONFERENCE took place today. The patients responsible libertarian, Trevon [phone] Alicea and Interdisciplinary team discussed the plan of care in detail. Current orders as well as treatments and medications were reviewed.
[2022-01-15 19:09] VITALS: BP 156/73
[2022-01-15] MEDS: LATANOPROST EYE DROP 0.005% 2.5 ML BOTTLE EACHEYE SCH (21:12)
[2022-01-15] MEDS: TAMSULOSIN 0.4 MG CAP.SR.24H GT SCH (21:12)
[2022-01-15] MEDS: INSULIN GLARGINE, 100 UNIT/ML CARTRIDGE SQ SCH (21:13)
[2022-01-16 00:03] VITALS: BP 140/72
[2022-01-16] MEDS: IPRATROPIUM NEB FS 0.5 MG/2.5 ML AMPUL.NEB NEB SCH ×4 (02:25→20:27)
[2022-01-16] MEDS: ALBUTEROL FS 2.5 MG/0.5 ML VIAL.NEB NEB SCH ×4 (02:25→20:27)
[2022-01-16] MEDS: GLUCERNA 1.2 1,000 ML BOTTLE GT PRN (05:19)
[2022-01-16] MEDS: BLOOD SUGAR DIAGNOSTIC 1 EACH STRIP IN SCH ×3 (05:19→21:17)
[2022-01-16] MEDS: LEVOTHYROXINE SODIUM 125 MCG TABLET GT SCH (05:19)
[2022-01-16] MEDS: INSULIN ASPART/LISPRO 100 UNIT/ML CARTRIDGE SQ PRN ×3 (05:20→21:18)
[2022-01-16 07:25] VITALS: BP 111/89
[2022-01-16] MEDS: HYDROGEN PEROXIDE 480 ML BOTTLE TP SCH ×2 (09:00→20:27)
[2022-01-16] MEDS: FERROUS SULFATE - FOR SA ONLY 330 MG/7.5 ML UDC GT SCH ×3 (09:25→16:52)
[2022-01-16] MEDS: LEVETIRACETAM 500 MG GT SCH ×2 (09:25→21:17)
[2022-01-16] MEDS: JANUVIA 25 MG GT SCH (09:26)
[2022-01-16] MEDS: APIXABAN 2.5 MG TABLET GT SCH ×2 (09:26→16:52)
[2022-01-16] MEDS: PENLAC TP SCH (09:27)
[2022-01-16] MEDS: BACLOFEN 5 MG GT SCH ×2 (09:27→16:53)
[2022-01-16] MEDS: CHOLESTYRAMINE/ASPARTAME 4 G/PKT PACKET GT SCH (09:27)
[2022-01-16] MEDS: FAMOTIDINE (20 MG) 20 MG TABLET GT SCH (09:27)
[2022-01-16] MEDS: MULTIVIT W/MINERALS 1 TAB TABLET GT SCH (09:27)
[2022-01-16] MEDS: SIROLIMUS 1 MG GT SCH (09:27)
[2022-01-16] MEDS: Z GUARD REMEDY 4 OZ OINT TP SCH ×2 (09:27→21:17)
[2022-01-16 12:07] VITALS: BP 137/78
[2022-01-16] MEDS: DIGOXIN 0.125 MG TABLET GT SCH (13:15)
[2022-01-16 19:57] VITALS: BP 115/65
[2022-01-16] MEDS: LATANOPROST EYE DROP 0.005% 2.5 ML BOTTLE EACHEYE SCH (21:17)
[2022-01-16] MEDS: TAMSULOSIN 0.4 MG CAP.SR.24H GT SCH (21:17)
[2022-01-16] MEDS: INSULIN GLARGINE, 100 UNIT/ML CARTRIDGE SQ SCH (21:18)
[2022-01-17] MEDS: IPRATROPIUM NEB FS 0.5 MG/2.5 ML AMPUL.NEB NEB SCH ×4 (01:03→19:40)
[2022-01-17] MEDS: ALBUTEROL FS 2.5 MG/0.5 ML VIAL.NEB NEB SCH ×4 (01:03→19:40)
[2022-01-17] MEDS: GLUCERNA 1.2 1,000 ML BOTTLE GT PRN (05:35)
[2022-01-17] MEDS: BLOOD SUGAR DIAGNOSTIC 1 EACH STRIP IN SCH ×3 (05:35→21:24)
[2022-01-17] MEDS: LEVOTHYROXINE SODIUM 125 MCG TABLET GT SCH (05:35)
[2022-01-17] MEDS: INSULIN ASPART/LISPRO 100 UNIT/ML CARTRIDGE SQ PRN ×3 (05:38→21:27)
[2022-01-17 07:45] VITALS: BP 135/75
[2022-01-17] MEDS: HYDROGEN PEROXIDE 480 ML BOTTLE TP SCH ×2 (09:07→20:35)
[2022-01-17] MEDS: MULTIVIT W/MINERALS 1 TAB TABLET GT SCH (09:44)
[2022-01-17] MEDS: APIXABAN 2.5 MG TABLET GT SCH ×2 (09:44→17:00)
[2022-01-17] MEDS: JANUVIA 25 MG GT SCH (09:44)
[2022-01-17] MEDS: FERROUS SULFATE - FOR SA ONLY 330 MG/7.5 ML UDC GT SCH ×3 (09:44→17:00)
[2022-01-17] MEDS: LEVETIRACETAM 500 MG GT SCH ×2 (09:44→21:24)
[2022-01-17] MEDS: BACLOFEN 5 MG GT SCH ×2 (09:44→17:00)
[2022-01-17] MEDS: CHOLESTYRAMINE/ASPARTAME 4 G/PKT PACKET GT SCH (09:44)
[2022-01-17] MEDS: PENLAC TP SCH (09:44)
[2022-01-17] MEDS: SIROLIMUS 1 MG GT SCH (09:44)
[2022-01-17] MEDS: FAMOTIDINE (20 MG) 20 MG TABLET GT SCH (09:44)
[2022-01-17] MEDS: Z GUARD REMEDY 4 OZ OINT TP SCH ×2 (09:45→21:24)
[2022-01-17] MEDS: DIGOXIN 0.125 MG TABLET GT SCH (13:09)
[2022-01-17 13:21] VITALS: BP 105/54
[2022-01-17 20:02] VITALS: BP 154/82
[2022-01-17] MEDS: TAMSULOSIN 0.4 MG CAP.SR.24H GT SCH (21:25)
[2022-01-17] MEDS: LATANOPROST EYE DROP 0.005% 2.5 ML BOTTLE EACHEYE SCH (21:25)
[2022-01-17] MEDS: INSULIN GLARGINE, 100 UNIT/ML CARTRIDGE SQ SCH (21:26)
[2022-01-18] MEDS: GLUCERNA 1.2 1,000 ML BOTTLE GT PRN ×2 (00:06→16:42)
[2022-01-18] MEDS: IPRATROPIUM NEB FS 0.5 MG/2.5 ML AMPUL.NEB NEB SCH ×4 (00:34→19:30)
[2022-01-18] MEDS: ALBUTEROL FS 2.5 MG/0.5 ML VIAL.NEB NEB SCH ×4 (00:34→19:30)
[2022-01-18] MEDS: BLOOD SUGAR DIAGNOSTIC 1 EACH STRIP IN SCH ×3 (05:49→21:39)
[2022-01-18] MEDS: INSULIN ASPART/LISPRO 100 UNIT/ML CARTRIDGE SQ PRN ×3 (05:49→21:41)
[2022-01-18] MEDS: LEVOTHYROXINE SODIUM 125 MCG TABLET GT SCH (05:49)
[2022-01-18 07:45] VITALS: BP 145/89
[2022-01-18] MEDS: HYDROGEN PEROXIDE 480 ML BOTTLE TP SCH ×2 (09:00→21:18)
[2022-01-18] MEDS: SIROLIMUS 1 MG GT SCH (09:04)
[2022-01-18] MEDS: FERROUS SULFATE - FOR SA ONLY 330 MG/7.5 ML UDC GT SCH ×3 (09:04→16:30)
[2022-01-18] MEDS: JANUVIA 25 MG GT SCH (09:04)
[2022-01-18] MEDS: FAMOTIDINE (20 MG) 20 MG TABLET GT SCH (09:04)
[2022-01-18] MEDS: LEVETIRACETAM 500 MG GT SCH ×2 (09:04→21:39)
[2022-01-18] MEDS: BACLOFEN 5 MG GT SCH ×2 (09:04→16:30)
[2022-01-18] MEDS: MULTIVIT W/MINERALS 1 TAB TABLET GT SCH (09:04)
[2022-01-18] MEDS: CHOLESTYRAMINE/ASPARTAME 4 G/PKT PACKET GT SCH (09:04)
[2022-01-18] MEDS: APIXABAN 2.5 MG TABLET GT SCH ×2 (09:04→16:30)
[2022-01-18] MEDS: Z GUARD REMEDY 4 OZ OINT TP SCH ×2 (09:06→21:39)
[2022-01-18] MEDS: PENLAC TP SCH (09:07)
[2022-01-18] MEDS: DIGOXIN 0.125 MG TABLET GT SCH (12:52)
[2022-01-18 13:58] VITALS: BP 158/75
[2022-01-18 19:36] VITALS: BP 143/64
[2022-01-18] MEDS: INSULIN GLARGINE, 100 UNIT/ML CARTRIDGE SQ SCH (21:40)
[2022-01-18] MEDS: LATANOPROST EYE DROP 0.005% 2.5 ML BOTTLE EACHEYE SCH (21:40)
[2022-01-18] MEDS: TAMSULOSIN 0.4 MG CAP.SR.24H GT SCH (21:40)
[2022-01-18 23:41] VITALS: BP 144/60
[2022-01-19] MEDS: ALBUTEROL FS 2.5 MG/0.5 ML VIAL.NEB NEB SCH ×4 (01:57→20:06)
[2022-01-19] MEDS: IPRATROPIUM NEB FS 0.5 MG/2.5 ML AMPUL.NEB NEB SCH ×4 (01:57→20:06)
[2022-01-19] MEDS: BLOOD SUGAR DIAGNOSTIC 1 EACH STRIP IN SCH ×3 (05:26→21:31)
[2022-01-19] MEDS: LEVOTHYROXINE SODIUM 125 MCG TABLET GT SCH (05:26)
[2022-01-19] MEDS: INSULIN ASPART/LISPRO 100 UNIT/ML CARTRIDGE SQ PRN ×2 (05:27→13:09)
[2022-01-19 07:33] VITALS: BP 128/59
--- NOTE | 2022-01-19 09:00 | NUR ---
Seen and examined by Dr. Alicea no new orders.
[2022-01-19] MEDS: HYDROGEN PEROXIDE 480 ML BOTTLE TP SCH ×2 (09:09→21:38)
[2022-01-19] MEDS: FERROUS SULFATE - FOR SA ONLY 330 MG/7.5 ML UDC GT SCH ×3 (09:35→17:09)
[2022-01-19] MEDS: APIXABAN 2.5 MG TABLET GT SCH ×2 (09:35→17:09)
[2022-01-19] MEDS: SIROLIMUS 1 MG GT SCH (09:35)
[2022-01-19] MEDS: CHOLESTYRAMINE/ASPARTAME 4 G/PKT PACKET GT SCH (09:35)
[2022-01-19] MEDS: JANUVIA 25 MG GT SCH (09:35)
[2022-01-19] MEDS: FAMOTIDINE (20 MG) 20 MG TABLET GT SCH (09:35)
[2022-01-19] MEDS: BACLOFEN 5 MG GT SCH ×2 (09:35→17:09)
[2022-01-19] MEDS: LEVETIRACETAM 500 MG GT SCH ×2 (09:35→21:31)
[2022-01-19] MEDS: PENLAC TP SCH (09:36)
[2022-01-19] MEDS: Z GUARD REMEDY 4 OZ OINT TP SCH ×2 (09:36→21:31)
[2022-01-19] MEDS: MULTIVIT W/MINERALS 1 TAB TABLET GT SCH (09:36)
[2022-01-19 12:26] VITALS: BP 127/62
[2022-01-19] MEDS: DIGOXIN 0.125 MG TABLET GT SCH (13:09)
[2022-01-19] MEDS: GLUCERNA 1.2 1,000 ML BOTTLE GT PRN (17:09)
[2022-01-19 19:47] VITALS: BP 145/72
[2022-01-19] MEDS: LATANOPROST EYE DROP 0.005% 2.5 ML BOTTLE EACHEYE SCH (21:31)
[2022-01-19] MEDS: TAMSULOSIN 0.4 MG CAP.SR.24H GT SCH (21:31)
[2022-01-19] MEDS: INSULIN GLARGINE, 100 UNIT/ML CARTRIDGE SQ SCH (21:32)
[2022-01-20] MEDS: ALBUTEROL FS 2.5 MG/0.5 ML VIAL.NEB NEB SCH ×4 (01:46→19:18)
[2022-01-20] MEDS: IPRATROPIUM NEB FS 0.5 MG/2.5 ML AMPUL.NEB NEB SCH ×4 (01:46→19:18)
[2022-01-20] MEDS: BLOOD SUGAR DIAGNOSTIC 1 EACH STRIP IN SCH ×3 (05:39→20:59)
[2022-01-20] MEDS: LEVOTHYROXINE SODIUM 125 MCG TABLET GT SCH (05:39)
[2022-01-20] MEDS: INSULIN ASPART/LISPRO 100 UNIT/ML CARTRIDGE SQ PRN ×3 (05:39→21:01)
[2022-01-20 07:47] VITALS: BP 108/58
--- NOTE | 2022-01-20 08:15 | NUR ---
PATIENT CHARGE NURSE PERNELL WAS NOTIFIED OF LOW HR 40-50 WAS OBSERVED. Addendum: 01/20/22 at 0847 by ANDREE DELGADO RT Amended: Links added.
[2022-01-20] MEDS: HYDROGEN PEROXIDE 480 ML BOTTLE TP SCH ×2 (09:00→19:18)
[2022-01-20] MEDS: Z GUARD REMEDY 4 OZ OINT TP SCH ×2 (09:21→20:59)
[2022-01-20] MEDS: PENLAC TP SCH (09:21)
[2022-01-20] MEDS: FAMOTIDINE (20 MG) 20 MG TABLET GT SCH (09:21)
[2022-01-20] MEDS: BACLOFEN 5 MG GT SCH ×2 (09:21→17:40)
[2022-01-20] MEDS: LEVETIRACETAM 500 MG GT SCH ×2 (09:21→20:59)
[2022-01-20] MEDS: MULTIVIT W/MINERALS 1 TAB TABLET GT SCH (09:21)
[2022-01-20] MEDS: APIXABAN 2.5 MG TABLET GT SCH ×2 (09:21→17:40)
[2022-01-20] MEDS: CHOLESTYRAMINE/ASPARTAME 4 G/PKT PACKET GT SCH (09:21)
[2022-01-20] MEDS: FERROUS SULFATE - FOR SA ONLY 330 MG/7.5 ML UDC GT SCH ×3 (09:21→17:40)
[2022-01-20] MEDS: SIROLIMUS 1 MG GT SCH (09:21)
[2022-01-20] MEDS: JANUVIA 25 MG GT SCH (09:21)
[2022-01-20] MEDS: DIGOXIN 0.125 MG TABLET GT SCH (12:40)
[2022-01-20] MEDS: GLUCERNA 1.2 1,000 ML BOTTLE GT PRN (12:41)
[2022-01-20 13:34] VITALS: BP 150/68
[2022-01-20 20:40] VITALS: BP 128/67
[2022-01-20] MEDS: TAMSULOSIN 0.4 MG CAP.SR.24H GT SCH (21:00)
[2022-01-20] MEDS: LATANOPROST EYE DROP 0.005% 2.5 ML BOTTLE EACHEYE SCH (21:00)
[2022-01-20] MEDS: INSULIN GLARGINE, 100 UNIT/ML CARTRIDGE SQ SCH (21:00)
[2022-01-21] MEDS: IPRATROPIUM NEB FS 0.5 MG/2.5 ML AMPUL.NEB NEB SCH ×4 (01:51→19:57)
[2022-01-21] MEDS: ALBUTEROL FS 2.5 MG/0.5 ML VIAL.NEB NEB SCH ×4 (01:51→19:57)
[2022-01-21] MEDS: LEVOTHYROXINE SODIUM 125 MCG TABLET GT SCH (05:52)
[2022-01-21] MEDS: BLOOD SUGAR DIAGNOSTIC 1 EACH STRIP IN SCH ×3 (05:52→21:43)
[2022-01-21] MEDS: INSULIN ASPART/LISPRO 100 UNIT/ML CARTRIDGE SQ PRN ×2 (05:53→12:56)
[2022-01-21 07:26] LABS: BASOPHILS % (AUTO) 0.1 % (0.0-2.0); HEMATOCRIT 32 % (39-51); LYMPHOCYTES # (AUTO) 1.1 K/uL (0.8-4.8); LYMPHOCYTES % (AUTO) 15.4 % (20.0-44.0); MEAN CORPUSCULAR HGB CONC 32 g/dl (31.0-36.0); MEAN CORPUSCULAR VOLUME 94 fL (80-96); MONOCYTES # (AUTO) 0.6 K/uL (0.1-1.30); MONOCYTES % (AUTO) 8.4 % (2.0-12.0); NEUTROPHILS # (AUTO) 5.3 K/uL (1.8-8.9); NEUTROPHILS % (AUTO) 73.1 % (43.0-81.0); PLATELET COUNT (AUTO) 128 K/uL (150-450); RED BLOOD CELL COUNT(AUTO) 3.34 MIL/uL (4.5-6.0); WHITE BLOOD COUNT (AUTO) 7.2 K/uL (4.3-11.0)
[2022-01-21 07:27] VITALS: BP 138/72
[2022-01-21 07:50] LABS: CALCIUM, SERUM 9.2 mg/dL (8.5-10.1); CREATININE 1.3 mg/dL (0.6-1.3); MAGNESIUM 2.2 mg/dL (1.8-2.4); PHOSPHORUS 3.8 mg/dL (2.5-4.9); POTASSIUM 4.6 mmol/L (3.5-5.1)
[2022-01-21] MEDS: JANUVIA 25 MG GT SCH (08:54)
[2022-01-21] MEDS: LEVETIRACETAM 500 MG GT SCH ×2 (08:54→20:56)
[2022-01-21] MEDS: CHOLESTYRAMINE/ASPARTAME 4 G/PKT PACKET GT SCH (08:54)
[2022-01-21] MEDS: BACLOFEN 5 MG GT SCH ×2 (08:54→17:17)
[2022-01-21] MEDS: SIROLIMUS 1 MG GT SCH (08:54)
[2022-01-21] MEDS: PENLAC TP SCH (08:54)
[2022-01-21] MEDS: MULTIVIT W/MINERALS 1 TAB TABLET GT SCH (08:54)
[2022-01-21] MEDS: FAMOTIDINE (20 MG) 20 MG TABLET GT SCH (08:54)
[2022-01-21] MEDS: FERROUS SULFATE - FOR SA ONLY 330 MG/7.5 ML UDC GT SCH ×3 (08:54→17:16)
[2022-01-21] MEDS: APIXABAN 2.5 MG TABLET GT SCH ×2 (08:54→17:16)
[2022-01-21] MEDS: Z GUARD REMEDY 4 OZ OINT TP SCH ×2 (08:55→20:56)
[2022-01-21] MEDS: HYDROGEN PEROXIDE 480 ML BOTTLE TP SCH ×2 (09:18→19:57)
[2022-01-21] MEDS: DIGOXIN 0.125 MG TABLET GT SCH (12:55)
[2022-01-21] MEDS: GLUCERNA 1.2 1,000 ML BOTTLE GT PRN (12:56)
[2022-01-21 14:07] VITALS: BP 132/69
[2022-01-21 19:01] VITALS: BP 133/70
[2022-01-21] MEDS: INSULIN GLARGINE, 100 UNIT/ML CARTRIDGE SQ SCH (21:43)
[2022-01-21] MEDS: TAMSULOSIN 0.4 MG CAP.SR.24H GT SCH (21:43)
[2022-01-21] MEDS: LATANOPROST EYE DROP 0.005% 2.5 ML BOTTLE EACHEYE SCH (21:43)
[2022-01-22 00:03] VITALS: BP 141/60
[2022-01-22] MEDS: ALBUTEROL FS 2.5 MG/0.5 ML VIAL.NEB NEB SCH ×4 (01:23→19:39)
[2022-01-22] MEDS: IPRATROPIUM NEB FS 0.5 MG/2.5 ML AMPUL.NEB NEB SCH ×4 (01:23→19:39)
[2022-01-22] MEDS: BLOOD SUGAR DIAGNOSTIC 1 EACH STRIP IN SCH ×3 (05:36→21:23)
[2022-01-22] MEDS: LEVOTHYROXINE SODIUM 125 MCG TABLET GT SCH (05:36)
[2022-01-22] MEDS: GLUCERNA 1.2 1,000 ML BOTTLE GT PRN (05:37)
[2022-01-22] MEDS: INSULIN ASPART/LISPRO 100 UNIT/ML CARTRIDGE SQ PRN ×3 (05:45→21:26)
[2022-01-22 07:29] VITALS: BP 116/65
[2022-01-22] MEDS: HYDROGEN PEROXIDE 480 ML BOTTLE TP SCH ×2 (09:46→20:05)
[2022-01-22] MEDS: APIXABAN 2.5 MG TABLET GT SCH ×2 (09:46→17:51)
[2022-01-22] MEDS: SIROLIMUS 1 MG GT SCH (09:47)
[2022-01-22] MEDS: FAMOTIDINE (20 MG) 20 MG TABLET GT SCH (09:47)
[2022-01-22] MEDS: LEVETIRACETAM 500 MG GT SCH ×2 (09:47→20:52)
[2022-01-22] MEDS: MULTIVIT W/MINERALS 1 TAB TABLET GT SCH (09:47)
[2022-01-22] MEDS: PENLAC TP SCH (09:47)
[2022-01-22] MEDS: JANUVIA 25 MG GT SCH (09:47)
[2022-01-22] MEDS: BACLOFEN 5 MG GT SCH ×2 (09:47→17:51)
[2022-01-22] MEDS: Z GUARD REMEDY 4 OZ OINT TP SCH ×2 (09:47→20:52)
[2022-01-22] MEDS: CHOLESTYRAMINE/ASPARTAME 4 G/PKT PACKET GT SCH (09:47)
[2022-01-22] MEDS: FERROUS SULFATE - FOR SA ONLY 330 MG/7.5 ML UDC GT SCH ×3 (09:47→17:51)
--- NOTE | 2022-01-22 12:05 | NUR ---
Latest Visitation Guidelines & Facility Update: DELMI informed pt.'s responsible constitution party, Trevon via email that, "SW Facility Update: No [facility] employee tested positive for COVID-19 this week. Residents and staff will continue receiving routine testing. We will continue to implement [facility] infection control protocols and continue screening employees before every shift. [facility] continues to follow infection control protocols and screen our residents and staff daily for symptoms". DELMI also informed family that the visitation guidelines have not changed at this time and notified them that per [facility], when transmission rate lowers to moderate, fully vaccinated and boosted visitors will not need to show proof of negative COVID test.
[2022-01-22 12:20] VITALS: BP 136/83
[2022-01-22] MEDS: DIGOXIN 0.125 MG TABLET GT SCH (13:00)
[2022-01-22 19:27] VITALS: BP 137/78
[2022-01-22] MEDS: LATANOPROST EYE DROP 0.005% 2.5 ML BOTTLE EACHEYE SCH (21:23)
[2022-01-22] MEDS: TAMSULOSIN 0.4 MG CAP.SR.24H GT SCH (21:24)
[2022-01-22] MEDS: INSULIN GLARGINE, 100 UNIT/ML CARTRIDGE SQ SCH (21:25)
[2022-01-23 00:13] VITALS: BP 133/66
[2022-01-23] MEDS: ALBUTEROL FS 2.5 MG/0.5 ML VIAL.NEB NEB SCH ×4 (01:08→20:05)
[2022-01-23] MEDS: IPRATROPIUM NEB FS 0.5 MG/2.5 ML AMPUL.NEB NEB SCH ×4 (01:08→20:05)
[2022-01-23] MEDS: LEVOTHYROXINE SODIUM 125 MCG TABLET GT SCH (05:43)
[2022-01-23] MEDS: BLOOD SUGAR DIAGNOSTIC 1 EACH STRIP IN SCH ×3 (05:44→21:00)
[2022-01-23] MEDS: INSULIN ASPART/LISPRO 100 UNIT/ML CARTRIDGE SQ PRN ×3 (05:46→17:53)
[2022-01-23 07:24] VITALS: BP 128/70
[2022-01-23] MEDS: HYDROGEN PEROXIDE 480 ML BOTTLE TP PRN (08:26)
[2022-01-23] MEDS: MULTIVIT W/MINERALS 1 TAB TABLET GT SCH (08:56)
[2022-01-23] MEDS: JANUVIA 25 MG GT SCH (08:56)
[2022-01-23] MEDS: CHOLESTYRAMINE/ASPARTAME 4 G/PKT PACKET GT SCH (08:56)
[2022-01-23] MEDS: FERROUS SULFATE - FOR SA ONLY 330 MG/7.5 ML UDC GT SCH ×3 (08:56→17:52)
[2022-01-23] MEDS: SIROLIMUS 1 MG GT SCH (08:56)
[2022-01-23] MEDS: FAMOTIDINE (20 MG) 20 MG TABLET GT SCH (08:56)
[2022-01-23] MEDS: LEVETIRACETAM 500 MG GT SCH ×2 (08:56→21:00)
[2022-01-23] MEDS: BACLOFEN 5 MG GT SCH ×2 (08:56→17:52)
[2022-01-23] MEDS: PENLAC TP SCH (08:56)
[2022-01-23] MEDS: Z GUARD REMEDY 4 OZ OINT TP SCH ×2 (08:57→21:00)
[2022-01-23] MEDS: APIXABAN 2.5 MG TABLET GT SCH ×2 (09:03→17:52)
[2022-01-23] MEDS: HYDROGEN PEROXIDE 480 ML BOTTLE TP SCH ×2 (09:22→20:05)
[2022-01-23] MEDS: GLUCERNA 1.2 1,000 ML BOTTLE GT PRN (11:24)
[2022-01-23 12:24] VITALS: BP 144/68
[2022-01-23] MEDS: DIGOXIN 0.125 MG TABLET GT SCH (12:27)
[2022-01-23 19:31] VITALS: BP 145/62
[2022-01-23] MEDS: INSULIN GLARGINE, 100 UNIT/ML CARTRIDGE SQ SCH (22:00)
[2022-01-23] MEDS: LATANOPROST EYE DROP 0.005% 2.5 ML BOTTLE EACHEYE SCH (22:55)
[2022-01-23] MEDS: TAMSULOSIN 0.4 MG CAP.SR.24H GT SCH (22:55)
[2022-01-24] MEDS: INSULIN ASPART/LISPRO 100 UNIT/ML CARTRIDGE SQ PRN ×2 (00:05→13:35)
[2022-01-24 00:13] VITALS: BP 138/68
[2022-01-24] MEDS: IPRATROPIUM NEB FS 0.5 MG/2.5 ML AMPUL.NEB NEB SCH ×4 (01:35→19:57)
[2022-01-24] MEDS: ALBUTEROL FS 2.5 MG/0.5 ML VIAL.NEB NEB SCH ×4 (01:35→19:57)
[2022-01-24] MEDS: BLOOD SUGAR DIAGNOSTIC 1 EACH STRIP IN SCH ×3 (05:00→20:53)
[2022-01-24] MEDS: LEVOTHYROXINE SODIUM 125 MCG TABLET GT SCH (06:23)
[2022-01-24 07:31] VITALS: BP 156/85
[2022-01-24] MEDS: HYDROGEN PEROXIDE 480 ML BOTTLE TP SCH ×2 (08:53→19:57)
[2022-01-24] MEDS: APIXABAN 2.5 MG TABLET GT SCH ×2 (09:49→17:00)
[2022-01-24] MEDS: SIROLIMUS 1 MG GT SCH (09:49)
[2022-01-24] MEDS: JANUVIA 25 MG GT SCH (09:49)
[2022-01-24] MEDS: FERROUS SULFATE - FOR SA ONLY 330 MG/7.5 ML UDC GT SCH ×3 (09:49→17:00)
[2022-01-24] MEDS: LEVETIRACETAM 500 MG GT SCH ×2 (09:52→20:53)
[2022-01-24] MEDS: BACLOFEN 5 MG GT SCH ×2 (09:52→17:00)
[2022-01-24] MEDS: CHOLESTYRAMINE/ASPARTAME 4 G/PKT PACKET GT SCH (09:52)
[2022-01-24] MEDS: PENLAC TP SCH (09:52)
[2022-01-24] MEDS: FAMOTIDINE (20 MG) 20 MG TABLET GT SCH (09:52)
[2022-01-24] MEDS: MULTIVIT W/MINERALS 1 TAB TABLET GT SCH (09:52)
[2022-01-24] MEDS: Z GUARD REMEDY 4 OZ OINT TP SCH ×2 (09:53→20:53)
[2022-01-24 13:19] VITALS: BP 144/77
[2022-01-24] MEDS: DIGOXIN 0.125 MG TABLET GT SCH (13:24)
--- NOTE | 2022-01-24 15:33 | NUR ---
Resident Progress Notes: Resident on activity program was seen and activities was provided. Sensory Stimulation was provided . Sense of touch, sweet aroma, hand massage, soft music and Russian program on tv was provided, pt received daily room visits. This program will continue as current.
[2022-01-24 19:39] VITALS: BP 140/66
[2022-01-24] MEDS: LATANOPROST EYE DROP 0.005% 2.5 ML BOTTLE EACHEYE SCH (21:03)
[2022-01-24] MEDS: TAMSULOSIN 0.4 MG CAP.SR.24H GT SCH (21:03)
[2022-01-24] MEDS: INSULIN GLARGINE, 100 UNIT/ML CARTRIDGE SQ SCH (21:05)
[2022-01-25] MEDS: IPRATROPIUM NEB FS 0.5 MG/2.5 ML AMPUL.NEB NEB SCH ×4 (01:31→19:34)
[2022-01-25] MEDS: ALBUTEROL FS 2.5 MG/0.5 ML VIAL.NEB NEB SCH ×4 (01:31→19:34)
[2022-01-25] MEDS: LEVOTHYROXINE SODIUM 125 MCG TABLET GT SCH (05:22)
[2022-01-25] MEDS: BLOOD SUGAR DIAGNOSTIC 1 EACH STRIP IN SCH ×3 (05:22→20:36)
[2022-01-25] MEDS: INSULIN ASPART/LISPRO 100 UNIT/ML CARTRIDGE SQ PRN ×3 (05:24→20:43)
[2022-01-25] MEDS: GLUCERNA 1.2 1,000 ML BOTTLE GT PRN ×2 (05:47→18:23)
[2022-01-25 07:26] VITALS: BP 147/56
[2022-01-25] MEDS: HYDROGEN PEROXIDE 480 ML BOTTLE TP SCH ×2 (08:57→19:34)
[2022-01-25] MEDS: APIXABAN 2.5 MG TABLET GT SCH ×2 (09:00→17:18)
[2022-01-25] MEDS: SIROLIMUS 1 MG GT SCH (09:00)
[2022-01-25] MEDS: LEVETIRACETAM 500 MG GT SCH ×2 (09:00→20:33)
[2022-01-25] MEDS: CHOLESTYRAMINE/ASPARTAME 4 G/PKT PACKET GT SCH (09:00)
[2022-01-25] MEDS: BACLOFEN 5 MG GT SCH ×2 (09:00→17:18)
[2022-01-25] MEDS: Z GUARD REMEDY 4 OZ OINT TP SCH ×2 (09:00→20:36)
[2022-01-25] MEDS: FERROUS SULFATE - FOR SA ONLY 330 MG/7.5 ML UDC GT SCH ×3 (09:00→17:18)
[2022-01-25] MEDS: FAMOTIDINE (20 MG) 20 MG TABLET GT SCH (09:00)
[2022-01-25] MEDS: PENLAC TP SCH (09:00)
[2022-01-25] MEDS: JANUVIA 25 MG GT SCH (09:00)
[2022-01-25] MEDS: MULTIVIT W/MINERALS 1 TAB TABLET GT SCH (09:00)
[2022-01-25 12:49] VITALS: BP 147/81
[2022-01-25] MEDS: DIGOXIN 0.125 MG TABLET GT SCH (13:35)
[2022-01-25 20:36] VITALS: BP 143/70
[2022-01-25] MEDS: LATANOPROST EYE DROP 0.005% 2.5 ML BOTTLE EACHEYE SCH (21:22)
[2022-01-25] MEDS: TAMSULOSIN 0.4 MG CAP.SR.24H GT SCH (21:22)
[2022-01-25] MEDS: INSULIN GLARGINE, 100 UNIT/ML CARTRIDGE SQ SCH (21:23)
[2022-01-26] MEDS: IPRATROPIUM NEB FS 0.5 MG/2.5 ML AMPUL.NEB NEB SCH ×4 (02:05→19:57)
[2022-01-26] MEDS: ALBUTEROL FS 2.5 MG/0.5 ML VIAL.NEB NEB SCH ×4 (02:05→19:57)
[2022-01-26] MEDS: BLOOD SUGAR DIAGNOSTIC 1 EACH STRIP IN SCH ×3 (05:27→20:43)
[2022-01-26] MEDS: LEVOTHYROXINE SODIUM 125 MCG TABLET GT SCH (05:27)
[2022-01-26] MEDS: INSULIN ASPART/LISPRO 100 UNIT/ML CARTRIDGE SQ PRN ×3 (05:27→20:57)
[2022-01-26 07:37] VITALS: BP 133/56
[2022-01-26] MEDS: HYDROGEN PEROXIDE 480 ML BOTTLE TP SCH ×2 (09:08→09:24)
[2022-01-26] MEDS: JANUVIA 25 MG GT SCH (09:44)
[2022-01-26] MEDS: FERROUS SULFATE - FOR SA ONLY 330 MG/7.5 ML UDC GT SCH ×3 (09:44→17:15)
[2022-01-26] MEDS: SIROLIMUS 1 MG GT SCH (09:45)
[2022-01-26] MEDS: MULTIVIT W/MINERALS 1 TAB TABLET GT SCH (09:46)
[2022-01-26] MEDS: Z GUARD REMEDY 4 OZ OINT TP SCH ×2 (09:46→20:43)
[2022-01-26] MEDS: LEVETIRACETAM 500 MG GT SCH ×2 (09:46→20:43)
[2022-01-26] MEDS: BACLOFEN 5 MG GT SCH ×2 (09:46→17:15)
[2022-01-26] MEDS: PENLAC TP SCH (09:46)
[2022-01-26] MEDS: CHOLESTYRAMINE/ASPARTAME 4 G/PKT PACKET GT SCH (09:46)
[2022-01-26] MEDS: FAMOTIDINE (20 MG) 20 MG TABLET GT SCH (09:46)
[2022-01-26] MEDS: APIXABAN 2.5 MG TABLET GT SCH ×2 (09:50→17:28)
[2022-01-26] MEDS: DIGOXIN 0.125 MG TABLET GT SCH (13:36)
[2022-01-26 13:41] VITALS: BP 158/77
[2022-01-26 20:28] VITALS: BP 141/62
[2022-01-26] MEDS: LATANOPROST EYE DROP 0.005% 2.5 ML BOTTLE EACHEYE SCH (21:34)
[2022-01-26] MEDS: TAMSULOSIN 0.4 MG CAP.SR.24H GT SCH (21:35)
[2022-01-26] MEDS: INSULIN GLARGINE, 100 UNIT/ML CARTRIDGE SQ SCH (21:36)
[2022-01-27] MEDS: ALBUTEROL FS 2.5 MG/0.5 ML VIAL.NEB NEB SCH ×4 (02:02→20:06)
[2022-01-27] MEDS: IPRATROPIUM NEB FS 0.5 MG/2.5 ML AMPUL.NEB NEB SCH ×4 (02:02→20:06)
[2022-01-27] MEDS: GLUCERNA 1.2 1,000 ML BOTTLE GT PRN (05:16)
[2022-01-27] MEDS: BLOOD SUGAR DIAGNOSTIC 1 EACH STRIP IN SCH ×3 (05:16→21:54)
[2022-01-27] MEDS: LEVOTHYROXINE SODIUM 125 MCG TABLET GT SCH (05:16)
[2022-01-27] MEDS: INSULIN ASPART/LISPRO 100 UNIT/ML CARTRIDGE SQ PRN ×3 (05:17→21:55)
[2022-01-27 07:26] VITALS: BP 135/68
[2022-01-27] MEDS: HYDROGEN PEROXIDE 480 ML BOTTLE TP SCH ×2 (09:16→20:06)
[2022-01-27] MEDS: APIXABAN 2.5 MG TABLET GT SCH ×2 (09:26→17:00)
[2022-01-27] MEDS: FERROUS SULFATE - FOR SA ONLY 330 MG/7.5 ML UDC GT SCH ×3 (09:26→17:00)
[2022-01-27] MEDS: LEVETIRACETAM 500 MG GT SCH ×2 (09:26→21:25)
[2022-01-27] MEDS: SIROLIMUS 1 MG GT SCH (09:26)
[2022-01-27] MEDS: JANUVIA 25 MG GT SCH (09:26)
[2022-01-27] MEDS: CHOLESTYRAMINE/ASPARTAME 4 G/PKT PACKET GT SCH (09:27)
[2022-01-27] MEDS: FAMOTIDINE (20 MG) 20 MG TABLET GT SCH (09:27)
[2022-01-27] MEDS: MULTIVIT W/MINERALS 1 TAB TABLET GT SCH (09:27)
[2022-01-27] MEDS: PENLAC TP SCH (09:27)
[2022-01-27] MEDS: BACLOFEN 5 MG GT SCH ×2 (09:27→17:00)
[2022-01-27] MEDS: Z GUARD REMEDY 4 OZ OINT TP SCH ×2 (09:27→21:26)
[2022-01-27 11:51] VITALS: BP 131/76
[2022-01-27] MEDS: DIGOXIN 0.125 MG TABLET GT SCH (13:06)
[2022-01-27 20:38] VITALS: BP 143/70
--- NOTE | 2022-01-27 21:15 | NUR ---
200ml gastric residual noted. No N/V. no s/s of distress noted. Feeding held. will re-evaluate after an hour. aspiration precaution in place. will continue to monitor closely. charge nurse aware.
[2022-01-27] MEDS: LATANOPROST EYE DROP 0.005% 2.5 ML BOTTLE EACHEYE SCH (21:26)
[2022-01-27] MEDS: TAMSULOSIN 0.4 MG CAP.SR.24H GT SCH (21:26)
[2022-01-27] MEDS: INSULIN GLARGINE, 100 UNIT/ML CARTRIDGE SQ SCH (21:55)
--- NOTE | 2022-01-27 22:30 | NUR ---
Gastric residual re-checked, noted 30 ml. pt calm. no s/s of distress. GTF resumed. Aspiration precaution observed. will monitor closely. charge nurse aware.
[2022-01-28] MEDS: GLUCERNA 1.2 1,000 ML BOTTLE GT PRN ×2 (00:53→17:15)
[2022-01-28] MEDS: IPRATROPIUM NEB FS 0.5 MG/2.5 ML AMPUL.NEB NEB SCH ×4 (01:38→20:17)
[2022-01-28] MEDS: ALBUTEROL FS 2.5 MG/0.5 ML VIAL.NEB NEB SCH ×4 (01:38→20:17)
[2022-01-28] MEDS: BLOOD SUGAR DIAGNOSTIC 1 EACH STRIP IN SCH ×3 (05:57→21:32)
[2022-01-28] MEDS: LEVOTHYROXINE SODIUM 125 MCG TABLET GT SCH (05:57)
[2022-01-28] MEDS: INSULIN ASPART/LISPRO 100 UNIT/ML CARTRIDGE SQ PRN ×3 (05:58→21:34)
[2022-01-28 07:14] LABS: BASOPHILS % (AUTO) 0.3 % (0.0-2.0); CALCIUM, SERUM 9.5 mg/dL (8.5-10.1); CARBON DIOXIDE 29 mmol/L (21-32); CHLORIDE 101 mmol/L (98-107); CREATININE 1.5 mg/dL (0.6-1.3); EOSINOPHILS % (AUTO) 4.5 % (0.0-6.0); GLUCOSE 128 mg/dL (74-106); HEMATOCRIT 32 % (39-51); HEMOGLOBIN 10.2 g/dL (13.5-17.5); LYMPHOCYTES # (AUTO) 1.3 K/uL (0.8-4.8); LYMPHOCYTES % (AUTO) 16.2 % (20.0-44.0); MAGNESIUM 2.5 mg/dL (1.8-2.4); MEAN CORPUSCULAR HGB CONC 32 g/dl (31.0-36.0); MEAN CORPUSCULAR VOLUME 95 fL (80-96); MONOCYTES # (AUTO) 0.8 K/uL (0.1-1.30); MONOCYTES % (AUTO) 10.4 % (2.0-12.0); NEUTROPHILS # (AUTO) 5.6 K/uL (1.8-8.9); NEUTROPHILS % (AUTO) 68.6 % (43.0-81.0); PHOSPHORUS 4.5 mg/dL (2.5-4.9); PLATELET COUNT (AUTO) 114 K/uL (150-450); POTASSIUM 4.7 mmol/L (3.5-5.1); RED BLOOD CELL COUNT(AUTO) 3.37 MIL/uL (4.5-6.0); SODIUM SERUM 138 mmol/L (136-145); UREA NITROGEN, BLOOD 36 mg/dL (7-18); WHITE BLOOD COUNT (AUTO) 8.2 K/uL (4.3-11.0)
[2022-01-28 07:17] VITALS: BP 114/63
[2022-01-28] MEDS: CHOLESTYRAMINE/ASPARTAME 4 G/PKT PACKET GT SCH (08:39)
[2022-01-28] MEDS: APIXABAN 2.5 MG TABLET GT SCH ×2 (09:39→17:15)
[2022-01-28] MEDS: SIROLIMUS 1 MG GT SCH (09:40)
[2022-01-28] MEDS: JANUVIA 25 MG GT SCH (09:40)
[2022-01-28] MEDS: FERROUS SULFATE - FOR SA ONLY 330 MG/7.5 ML UDC GT SCH ×3 (09:40→17:15)
[2022-01-28] MEDS: LEVETIRACETAM 500 MG GT SCH ×2 (09:40→21:32)
[2022-01-28] MEDS: BACLOFEN 5 MG GT SCH ×2 (09:41→17:15)
[2022-01-28] MEDS: FAMOTIDINE (20 MG) 20 MG TABLET GT SCH (09:41)
[2022-01-28] MEDS: MULTIVIT W/MINERALS 1 TAB TABLET GT SCH (09:41)
[2022-01-28] MEDS: Z GUARD REMEDY 4 OZ OINT TP SCH ×2 (09:42→21:32)
[2022-01-28] MEDS: PENLAC TP SCH (09:42)
[2022-01-28] MEDS: HYDROGEN PEROXIDE 480 ML BOTTLE TP SCH ×2 (10:35→23:30)
[2022-01-28 12:27] VITALS: BP 115/73
[2022-01-28] MEDS: DIGOXIN 0.125 MG TABLET GT SCH (13:10)
[2022-01-28 19:47] VITALS: BP 133/64
[2022-01-28] MEDS: LATANOPROST EYE DROP 0.005% 2.5 ML BOTTLE EACHEYE SCH (21:32)
[2022-01-28] MEDS: TAMSULOSIN 0.4 MG CAP.SR.24H GT SCH (21:32)
[2022-01-28] MEDS: INSULIN GLARGINE, 100 UNIT/ML CARTRIDGE SQ SCH (21:33)
--- NOTE | 2022-01-28 21:37 | NUR ---
BS 84 mg/dl, held Lantus 50 units. pt awake. calm. no s/s of distress or discomfort noted. vital signs WNL. all needs rendered. will monitor closely. cn aware.
[2022-01-29] MEDS: IPRATROPIUM NEB FS 0.5 MG/2.5 ML AMPUL.NEB NEB SCH ×4 (02:02→20:06)
[2022-01-29] MEDS: ALBUTEROL FS 2.5 MG/0.5 ML VIAL.NEB NEB SCH ×4 (02:02→20:06)
[2022-01-29] MEDS: LEVOTHYROXINE SODIUM 125 MCG TABLET GT SCH (05:49)
[2022-01-29] MEDS: BLOOD SUGAR DIAGNOSTIC 1 EACH STRIP IN SCH ×3 (05:49→21:22)
[2022-01-29] MEDS: INSULIN ASPART/LISPRO 100 UNIT/ML CARTRIDGE SQ PRN ×2 (05:52→12:25)
--- NOTE | 2022-01-29 07:05 | NUR ---
150 ml gastric residual noted during beginning of shift. feeding held. re-evaluated after an hour noted 80 ml residual. feeding resumed. No N/V. no s/s of distress during shift. aspiration precaution observed at all times. charge nurse aware. will endorse to oncoming shift.
[2022-01-29 07:37] VITALS: BP 137/58
[2022-01-29] MEDS: CHOLESTYRAMINE/ASPARTAME 4 G/PKT PACKET GT SCH (08:04)
[2022-01-29] MEDS: JANUVIA 25 MG GT SCH (09:16)
[2022-01-29] MEDS: FERROUS SULFATE - FOR SA ONLY 330 MG/7.5 ML UDC GT SCH ×3 (09:16→16:03)
[2022-01-29] MEDS: APIXABAN 2.5 MG TABLET GT SCH ×2 (09:16→16:03)
[2022-01-29] MEDS: SIROLIMUS 1 MG GT SCH (09:16)
[2022-01-29] MEDS: BACLOFEN 5 MG GT SCH ×2 (09:16→16:03)
[2022-01-29] MEDS: LEVETIRACETAM 500 MG GT SCH ×2 (09:16→21:22)
[2022-01-29] MEDS: FAMOTIDINE (20 MG) 20 MG TABLET GT SCH (09:17)
[2022-01-29] MEDS: MULTIVIT W/MINERALS 1 TAB TABLET GT SCH (09:17)
[2022-01-29] MEDS: PENLAC TP SCH (09:17)
[2022-01-29] MEDS: Z GUARD REMEDY 4 OZ OINT TP SCH ×2 (09:18→21:22)
[2022-01-29] MEDS: HYDROGEN PEROXIDE 480 ML BOTTLE TP SCH ×2 (09:20→20:06)
--- NOTE | 2022-01-29 09:34 | NUR ---
Notified Dr. Fritz that patient is having high gastric residual >150 ml., with order to start Reglan 10 mg. IV Q 8 hours for gastroparesis. Order faxed to [facility] and [facility] pharmacy.
[2022-01-29] MEDS ORDERED: METOCLOPRAMIDE HCL 10 MG/2 ML VIAL IV SCH (10:30)
--- NOTE | 2022-01-29 10:48 | NUR ---
Spoke with [facility] pharmacist Hanane to find out if Reglan IVP is covered or not. Awaiting for call back. Addendum: 01/29/22 at 1150 by PERNELL CONNER RN Patient's son Trevon notified of new order.
[2022-01-29 12:17] VITALS: BP 113/64
[2022-01-29] MEDS: DIGOXIN 0.125 MG TABLET GT SCH (12:25)
[2022-01-29] MEDS: METOCLOPRAMIDE HCL 10 MG/2 ML VIAL IV SCH ×2 (14:28→20:33)
[2022-01-29] MEDS: GLUCERNA 1.2 1,000 ML BOTTLE GT PRN (16:00)
[2022-01-29 20:07] VITALS: BP 146/75
[2022-01-29] MEDS: LATANOPROST EYE DROP 0.005% 2.5 ML BOTTLE EACHEYE SCH (21:22)
[2022-01-29] MEDS: TAMSULOSIN 0.4 MG CAP.SR.24H GT SCH (21:22)
[2022-01-29] MEDS: INSULIN GLARGINE, 100 UNIT/ML CARTRIDGE SQ SCH (21:23)
[2022-01-30] MEDS: IPRATROPIUM NEB FS 0.5 MG/2.5 ML AMPUL.NEB NEB SCH ×4 (01:21→19:22)
[2022-01-30] MEDS: ALBUTEROL FS 2.5 MG/0.5 ML VIAL.NEB NEB SCH ×4 (01:21→19:22)
[2022-01-30 02:15] VITALS: BP 120/61
[2022-01-30] MEDS: BLOOD SUGAR DIAGNOSTIC 1 EACH STRIP IN SCH ×3 (05:25→21:08)
[2022-01-30] MEDS: LEVOTHYROXINE SODIUM 125 MCG TABLET GT SCH (05:25)
[2022-01-30] MEDS: INSULIN ASPART/LISPRO 100 UNIT/ML CARTRIDGE SQ PRN ×3 (05:26→21:09)
[2022-01-30] MEDS: METOCLOPRAMIDE HCL 10 MG/2 ML VIAL IV SCH ×3 (05:32→21:41)
--- NOTE | 2022-01-30 06:16 | NUR ---
Reglan 10 mg IV administered 2x as ordered during the shift. Gastric residual minimal amount. Will continue to monitor.
[2022-01-30 07:28] VITALS: BP 115/76
[2022-01-30] MEDS: MULTIVIT W/MINERALS 1 TAB TABLET GT SCH (09:00)
[2022-01-30] MEDS: SIROLIMUS 1 MG GT SCH (09:00)
[2022-01-30] MEDS: Z GUARD REMEDY 4 OZ OINT TP SCH ×2 (09:00→21:08)
[2022-01-30] MEDS: BACLOFEN 5 MG GT SCH ×2 (09:00→17:00)
[2022-01-30] MEDS: PENLAC TP SCH (09:00)
[2022-01-30] MEDS: FERROUS SULFATE - FOR SA ONLY 330 MG/7.5 ML UDC GT SCH ×3 (09:00→17:00)
[2022-01-30] MEDS: JANUVIA 25 MG GT SCH (09:00)
[2022-01-30] MEDS: LEVETIRACETAM 500 MG GT SCH ×2 (09:00→21:08)
[2022-01-30] MEDS: CHOLESTYRAMINE/ASPARTAME 4 G/PKT PACKET GT SCH (09:00)
[2022-01-30] MEDS: FAMOTIDINE (20 MG) 20 MG TABLET GT SCH (09:00)
[2022-01-30] MEDS: APIXABAN 2.5 MG TABLET GT SCH ×2 (09:00→17:00)
[2022-01-30] MEDS: HYDROGEN PEROXIDE 480 ML BOTTLE TP SCH ×2 (09:25→19:22)
[2022-01-30 12:05] VITALS: BP 138/62
[2022-01-30] MEDS: DIGOXIN 0.125 MG TABLET GT SCH (12:09)
[2022-01-30 19:40] VITALS: BP 134/92
[2022-01-30] MEDS: LATANOPROST EYE DROP 0.005% 2.5 ML BOTTLE EACHEYE SCH (21:08)
[2022-01-30] MEDS: TAMSULOSIN 0.4 MG CAP.SR.24H GT SCH (21:08)
[2022-01-30] MEDS: INSULIN GLARGINE, 100 UNIT/ML CARTRIDGE SQ SCH (21:09)
[2022-01-31] MEDS: GUAIFENESIN 300 MG/15 ML UDC GT PRN (00:29)
[2022-01-31 01:23] VITALS: BP 138/83
[2022-01-31] MEDS: ALBUTEROL FS 2.5 MG/0.5 ML VIAL.NEB NEB SCH ×4 (01:24→18:58)
[2022-01-31] MEDS: IPRATROPIUM NEB FS 0.5 MG/2.5 ML AMPUL.NEB NEB SCH ×4 (01:24→18:58)
[2022-01-31] MEDS: LEVOTHYROXINE SODIUM 125 MCG TABLET GT SCH (05:33)
[2022-01-31] MEDS: BLOOD SUGAR DIAGNOSTIC 1 EACH STRIP IN SCH ×3 (05:33→20:42)
[2022-01-31] MEDS: INSULIN ASPART/LISPRO 100 UNIT/ML CARTRIDGE SQ PRN ×3 (05:34→20:53)
[2022-01-31] MEDS: METOCLOPRAMIDE HCL 10 MG/2 ML VIAL IV SCH ×3 (05:39→21:00)
--- NOTE | 2022-01-31 06:34 | NUR ---
Given prn Robitussin 300 mg for cough x1. effective. pt sleeping at this time. calm. no s/s of distress noted. all comfort measures rendered. cn aware. will endorse to oncoming shift.
[2022-01-31 06:55] LABS: BASOPHILS % (AUTO) 0.1 % (0.0-2.0); EOSINOPHILS % (AUTO) 2.8 % (0.0-6.0); HEMATOCRIT 32 % (39-51); HEMOGLOBIN 10.4 g/dL (13.5-17.5); LYMPHOCYTES # (AUTO) 1.1 K/uL (0.8-4.8); LYMPHOCYTES % (AUTO) 12.7 % (20.0-44.0); MEAN CORPUSCULAR HGB CONC 32 g/dl (31.0-36.0); MEAN CORPUSCULAR VOLUME 94 fL (80-96); MONOCYTES # (AUTO) 0.9 K/uL (0.1-1.30); MONOCYTES % (AUTO) 10.2 % (2.0-12.0); NEUTROPHILS # (AUTO) 6.7 K/uL (1.8-8.9); NEUTROPHILS % (AUTO) 74.2 % (43.0-81.0); PLATELET COUNT (AUTO) 107 K/uL (150-450); RED BLOOD CELL COUNT(AUTO) 3.41 MIL/uL (4.5-6.0); WHITE BLOOD COUNT (AUTO) 9.1 K/uL (4.3-11.0)
[2022-01-31 07:13] LABS: CALCIUM, SERUM 9.3 mg/dL (8.5-10.1); CARBON DIOXIDE 31 mmol/L (21-32); CHLORIDE 98 mmol/L (98-107); CREATININE 1.5 mg/dL (0.6-1.3); GLUCOSE 126 mg/dL (74-106); MAGNESIUM 2.6 mg/dL (1.8-2.4); PHOSPHORUS 4.2 mg/dL (2.5-4.9); POTASSIUM 4.2 mmol/L (3.5-5.1); SODIUM SERUM 134 mmol/L (136-145); UREA NITROGEN, BLOOD 32 mg/dL (7-18)
[2022-01-31 07:18] VITALS: BP 110/69
[2022-01-31] MEDS: HYDROGEN PEROXIDE 480 ML BOTTLE TP SCH ×2 (09:04→20:19)
[2022-01-31] MEDS: SIROLIMUS 1 MG GT SCH (09:25)
[2022-01-31] MEDS: FAMOTIDINE (20 MG) 20 MG TABLET GT SCH (09:25)
[2022-01-31] MEDS: MULTIVIT W/MINERALS 1 TAB TABLET GT SCH (09:25)
[2022-01-31] MEDS: JANUVIA 25 MG GT SCH (09:25)
[2022-01-31] MEDS: BACLOFEN 5 MG GT SCH ×2 (09:25→17:00)
[2022-01-31] MEDS: APIXABAN 2.5 MG TABLET GT SCH ×2 (09:25→17:00)
[2022-01-31] MEDS: CHOLESTYRAMINE/ASPARTAME 4 G/PKT PACKET GT SCH (09:25)
[2022-01-31] MEDS: FERROUS SULFATE - FOR SA ONLY 330 MG/7.5 ML UDC GT SCH ×3 (09:25→17:00)
[2022-01-31] MEDS: LEVETIRACETAM 500 MG GT SCH ×2 (09:25→20:41)
[2022-01-31] MEDS: PENLAC TP SCH (09:26)
[2022-01-31] MEDS: Z GUARD REMEDY 4 OZ OINT TP SCH ×2 (09:26→20:42)
[2022-01-31] MEDS: GLUCERNA 1.2 1,000 ML BOTTLE GT PRN (11:55)
[2022-01-31 12:00] VITALS: BP 144/59
[2022-01-31] MEDS: DIGOXIN 0.125 MG TABLET GT SCH (12:32)
[2022-01-31 20:00] VITALS: BP 144/68
[2022-01-31] MEDS: TAMSULOSIN 0.4 MG CAP.SR.24H GT SCH (21:11)
[2022-01-31] MEDS: INSULIN GLARGINE, 100 UNIT/ML CARTRIDGE SQ SCH (21:11)
[2022-01-31] MEDS: LATANOPROST EYE DROP 0.005% 2.5 ML BOTTLE EACHEYE SCH (21:11)
[2022-02-01] MEDS: IPRATROPIUM NEB FS 0.5 MG/2.5 ML AMPUL.NEB NEB SCH ×4 (00:33→18:56)
[2022-02-01] MEDS: ALBUTEROL FS 2.5 MG/0.5 ML VIAL.NEB NEB SCH ×4 (00:33→18:56)
[2022-02-01] MEDS: BLOOD SUGAR DIAGNOSTIC 1 EACH STRIP IN SCH ×3 (05:27→20:52)
[2022-02-01] MEDS: INSULIN ASPART/LISPRO 100 UNIT/ML CARTRIDGE SQ PRN ×3 (05:29→21:13)
[2022-02-01] MEDS: LEVOTHYROXINE SODIUM 125 MCG TABLET GT SCH (05:29)
[2022-02-01] MEDS: METOCLOPRAMIDE HCL 10 MG/2 ML VIAL IV SCH ×3 (05:50→21:00)
[2022-02-01 07:24] VITALS: BP 136/73
[2022-02-01] MEDS: HYDROGEN PEROXIDE 480 ML BOTTLE TP SCH ×2 (09:04→20:09)
[2022-02-01] MEDS: BACLOFEN 5 MG GT SCH ×2 (09:11→17:49)
[2022-02-01] MEDS: JANUVIA 25 MG GT SCH (09:11)
[2022-02-01] MEDS: APIXABAN 2.5 MG TABLET GT SCH ×2 (09:11→17:49)
[2022-02-01] MEDS: FERROUS SULFATE - FOR SA ONLY 330 MG/7.5 ML UDC GT SCH ×3 (09:11→17:49)
[2022-02-01] MEDS: LEVETIRACETAM 500 MG GT SCH ×2 (09:11→20:52)
[2022-02-01] MEDS: SIROLIMUS 1 MG GT SCH (09:11)
[2022-02-01] MEDS: Z GUARD REMEDY 4 OZ OINT TP SCH ×2 (09:12→20:52)
[2022-02-01] MEDS: MULTIVIT W/MINERALS 1 TAB TABLET GT SCH (09:12)
[2022-02-01] MEDS: CHOLESTYRAMINE/ASPARTAME 4 G/PKT PACKET GT SCH (09:12)
[2022-02-01] MEDS: PENLAC TP SCH (09:12)
[2022-02-01] MEDS: FAMOTIDINE (20 MG) 20 MG TABLET GT SCH (09:12)
[2022-02-01] MEDS: GLUCERNA 1.2 1,000 ML BOTTLE GT PRN (09:58)
[2022-02-01] MEDS: DIGOXIN 0.125 MG TABLET GT SCH (12:23)
[2022-02-01 12:41] VITALS: BP 143/82
[2022-02-01 20:00] VITALS: BP 144/69
[2022-02-01] MEDS: TAMSULOSIN 0.4 MG CAP.SR.24H GT SCH (21:11)
[2022-02-01] MEDS: LATANOPROST EYE DROP 0.005% 2.5 ML BOTTLE EACHEYE SCH (21:11)
[2022-02-01] MEDS: INSULIN GLARGINE, 100 UNIT/ML CARTRIDGE SQ SCH (21:12)
[2022-02-02] MEDS: IPRATROPIUM NEB FS 0.5 MG/2.5 ML AMPUL.NEB NEB SCH ×4 (00:39→20:15)
[2022-02-02] MEDS: ALBUTEROL FS 2.5 MG/0.5 ML VIAL.NEB NEB SCH ×4 (00:39→20:15)
[2022-02-02] MEDS: METOCLOPRAMIDE HCL 10 MG/2 ML VIAL IV SCH ×3 (05:00→21:00)
[2022-02-02] MEDS: LEVOTHYROXINE SODIUM 125 MCG TABLET GT SCH (05:39)
[2022-02-02] MEDS: GLUCERNA 1.2 1,000 ML BOTTLE GT PRN (05:39)
[2022-02-02] MEDS: BLOOD SUGAR DIAGNOSTIC 1 EACH STRIP IN SCH ×3 (05:39→20:58)
[2022-02-02] MEDS: INSULIN ASPART/LISPRO 100 UNIT/ML CARTRIDGE SQ PRN ×2 (05:40→21:04)
[2022-02-02 07:29] VITALS: BP 144/70
[2022-02-02] MEDS: FERROUS SULFATE - FOR SA ONLY 330 MG/7.5 ML UDC GT SCH ×3 (09:24→17:21)
[2022-02-02] MEDS: JANUVIA 25 MG GT SCH (09:26)
[2022-02-02] MEDS: BACLOFEN 5 MG GT SCH ×2 (09:27→17:21)
[2022-02-02] MEDS: FAMOTIDINE (20 MG) 20 MG TABLET GT SCH (09:27)
[2022-02-02] MEDS: LEVETIRACETAM 500 MG GT SCH ×2 (09:27→20:58)
[2022-02-02] MEDS: CHOLESTYRAMINE/ASPARTAME 4 G/PKT PACKET GT SCH (09:28)
[2022-02-02] MEDS: Z GUARD REMEDY 4 OZ OINT TP SCH ×2 (09:29→20:59)
[2022-02-02] MEDS: MULTIVIT W/MINERALS 1 TAB TABLET GT SCH (09:29)
[2022-02-02] MEDS: HYDROGEN PEROXIDE 480 ML BOTTLE TP SCH ×2 (09:29→21:23)
[2022-02-02] MEDS: PENLAC TP SCH (09:30)
[2022-02-02] MEDS: SIROLIMUS 1 MG GT SCH (09:33)
--- NOTE | 2022-02-02 09:43 | NUR ---
Seen and examined by Dr. Alicea, no new order given. Gastric residual last night >150 ml. but with minimal residual this AM. Patient still receiving Reglan 10mg IVP for gastroparesis.
[2022-02-02] MEDS: APIXABAN 2.5 MG TABLET GT SCH ×2 (09:52→17:27)
[2022-02-02 10:00] VITALS: BP 144/70
[2022-02-02] MEDS: DIGOXIN 0.125 MG TABLET GT SCH (12:49)
[2022-02-02 13:03] VITALS: BP 169/90
[2022-02-02 20:26] VITALS: BP 135/70
[2022-02-02] MEDS: TAMSULOSIN 0.4 MG CAP.SR.24H GT SCH (21:00)
[2022-02-02] MEDS: INSULIN GLARGINE, 100 UNIT/ML CARTRIDGE SQ SCH (21:03)
[2022-02-02] MEDS: LATANOPROST EYE DROP 0.005% 2.5 ML BOTTLE EACHEYE SCH (21:41)
[2022-02-03] MEDS: IPRATROPIUM NEB FS 0.5 MG/2.5 ML AMPUL.NEB NEB SCH ×4 (01:50→20:08)
[2022-02-03] MEDS: ALBUTEROL FS 2.5 MG/0.5 ML VIAL.NEB NEB SCH ×4 (01:50→20:08)
[2022-02-03] MEDS: BLOOD SUGAR DIAGNOSTIC 1 EACH STRIP IN SCH ×3 (05:23→21:25)
[2022-02-03] MEDS: LEVOTHYROXINE SODIUM 125 MCG TABLET GT SCH (05:23)
[2022-02-03] MEDS: INSULIN ASPART/LISPRO 100 UNIT/ML CARTRIDGE SQ PRN ×3 (05:23→21:27)
[2022-02-03] MEDS: GLUCERNA 1.2 1,000 ML BOTTLE GT PRN (05:24)
[2022-02-03 07:58] VITALS: BP 108/60
[2022-02-03] MEDS: Z GUARD REMEDY 4 OZ OINT TP SCH ×2 (09:00→21:25)
[2022-02-03] MEDS: PENLAC TP SCH (09:00)
[2022-02-03] MEDS: MULTIVIT W/MINERALS 1 TAB TABLET GT SCH (09:00)
[2022-02-03] MEDS: APIXABAN 2.5 MG TABLET GT SCH ×2 (09:00→17:00)
[2022-02-03] MEDS: JANUVIA 25 MG GT SCH (09:00)
[2022-02-03] MEDS: FERROUS SULFATE - FOR SA ONLY 330 MG/7.5 ML UDC GT SCH ×3 (09:00→17:00)
[2022-02-03] MEDS: FAMOTIDINE (20 MG) 20 MG TABLET GT SCH (09:00)
[2022-02-03] MEDS: CHOLESTYRAMINE/ASPARTAME 4 G/PKT PACKET GT SCH (09:00)
[2022-02-03] MEDS: BACLOFEN 5 MG GT SCH ×2 (09:00→17:00)
[2022-02-03] MEDS: LEVETIRACETAM 500 MG GT SCH ×2 (09:00→21:25)
[2022-02-03] MEDS: SIROLIMUS 1 MG GT SCH (09:00)
[2022-02-03] MEDS: HYDROGEN PEROXIDE 480 ML BOTTLE TP SCH ×2 (09:16→20:08)
[2022-02-03 12:21] VITALS: BP 115/66
[2022-02-03] MEDS: DIGOXIN 0.125 MG TABLET GT SCH (13:00)
[2022-02-03] MEDS: METOCLOPRAMIDE HCL 10 MG/2 ML VIAL IV SCH ×3 (13:30→21:18)
[2022-02-03 19:52] VITALS: BP 117/69
[2022-02-03] MEDS: TAMSULOSIN 0.4 MG CAP.SR.24H GT SCH (21:26)
[2022-02-03] MEDS: INSULIN GLARGINE, 100 UNIT/ML CARTRIDGE SQ SCH (21:26)
[2022-02-03] MEDS: LATANOPROST EYE DROP 0.005% 2.5 ML BOTTLE EACHEYE SCH (21:26)
[2022-02-04 00:33] VITALS: BP 125/70
[2022-02-04] MEDS: ALBUTEROL FS 2.5 MG/0.5 ML VIAL.NEB NEB SCH ×4 (01:43→20:06)
[2022-02-04] MEDS: IPRATROPIUM NEB FS 0.5 MG/2.5 ML AMPUL.NEB NEB SCH ×4 (01:43→20:06)
[2022-02-04] MEDS: LEVOTHYROXINE SODIUM 125 MCG TABLET GT SCH (05:23)
[2022-02-04] MEDS: BLOOD SUGAR DIAGNOSTIC 1 EACH STRIP IN SCH ×3 (05:23→21:09)
[2022-02-04] MEDS: INSULIN ASPART/LISPRO 100 UNIT/ML CARTRIDGE SQ PRN ×2 (05:23→12:45)
[2022-02-04] MEDS: GLUCERNA 1.2 1,000 ML BOTTLE GT PRN (05:23)
[2022-02-04] MEDS: METOCLOPRAMIDE HCL 10 MG/2 ML VIAL IV SCH ×3 (05:41→21:07)
[2022-02-04 06:49] LABS: BASOPHILS % (AUTO) 0.1 % (0.0-2.0); EOSINOPHILS % (AUTO) 2.9 % (0.0-6.0); HEMATOCRIT 29 % (39-51); HEMOGLOBIN 9.4 g/dL (13.5-17.5); LYMPHOCYTES % (AUTO) 12.1 % (20.0-44.0); MEAN CORPUSCULAR HGB CONC 32 g/dl (31.0-36.0); MEAN CORPUSCULAR VOLUME 93 fL (80-96); MONOCYTES # (AUTO) 0.9 K/uL (0.1-1.30); MONOCYTES % (AUTO) 10.5 % (2.0-12.0); NEUTROPHILS # (AUTO) 6.4 K/uL (1.8-8.9); NEUTROPHILS % (AUTO) 74.4 % (43.0-81.0); PLATELET COUNT (AUTO) 109 K/uL (150-450); RED BLOOD CELL COUNT(AUTO) 3.11 MIL/uL (4.5-6.0); WHITE BLOOD COUNT (AUTO) 8.5 K/uL (4.3-11.0)
[2022-02-04 07:37] VITALS: BP 124/69
[2022-02-04 07:57] LABS: CALCIUM, SERUM 9.9 mg/dL (8.5-10.1); CARBON DIOXIDE 28 mmol/L (21-32); CHLORIDE 98 mmol/L (98-107); CREATININE 1.7 mg/dL (0.6-1.3); GLUCOSE 119 mg/dL (74-106); MAGNESIUM 3.2 mg/dL (1.8-2.4); PHOSPHORUS 5.2 mg/dL (2.5-4.9); POTASSIUM 4.4 mmol/L (3.5-5.1); SODIUM SERUM 135 mmol/L (136-145); UREA NITROGEN, BLOOD 43 mg/dL (7-18)
[2022-02-04] MEDS: FERROUS SULFATE - FOR SA ONLY 330 MG/7.5 ML UDC GT SCH ×3 (08:52→17:08)
[2022-02-04] MEDS: CHOLESTYRAMINE/ASPARTAME 4 G/PKT PACKET GT SCH (08:52)
[2022-02-04] MEDS: MULTIVIT W/MINERALS 1 TAB TABLET GT SCH (08:52)
[2022-02-04] MEDS: JANUVIA 25 MG GT SCH (08:52)
[2022-02-04] MEDS: FAMOTIDINE (20 MG) 20 MG TABLET GT SCH (08:52)
[2022-02-04] MEDS: PENLAC TP SCH (08:52)
[2022-02-04] MEDS: Z GUARD REMEDY 4 OZ OINT TP SCH ×2 (08:52→20:28)
[2022-02-04] MEDS: SIROLIMUS 1 MG GT SCH (08:52)
[2022-02-04] MEDS: BACLOFEN 5 MG GT SCH ×2 (08:52→17:08)
[2022-02-04] MEDS: LEVETIRACETAM 500 MG GT SCH ×2 (08:52→20:28)
[2022-02-04] MEDS: APIXABAN 2.5 MG TABLET GT SCH ×2 (08:52→17:08)
[2022-02-04] MEDS: HYDROGEN PEROXIDE 480 ML BOTTLE TP SCH ×2 (09:04→23:26)
[2022-02-04 12:30] VITALS: BP 127/66
[2022-02-04] MEDS: DIGOXIN 0.125 MG TABLET GT SCH (12:45)
[2022-02-04] MEDS: ACETAMINOPHEN 650 MG/20 ML UDC- SA PATIENTS-PAIN ONLY GT PRN (18:00)
[2022-02-04 19:50] VITALS: BP 123/64
[2022-02-04] MEDS: IV D5/0.45 NACL 1,000 ML IV PRN (21:08)
[2022-02-04] MEDS: TAMSULOSIN 0.4 MG CAP.SR.24H GT SCH (21:09)
[2022-02-04] MEDS: INSULIN GLARGINE, 100 UNIT/ML CARTRIDGE SQ SCH (21:09)
[2022-02-04] MEDS: LATANOPROST EYE DROP 0.005% 2.5 ML BOTTLE EACHEYE SCH (21:09)
--- NOTE | 2022-02-04 21:10 | NUR ---
Rcvd report from previous shift that pt had gastric residual of 300 cc @ 1800, with episode of increased HR 100's, PRN Tylenol was given @ 1800. 1999: Pt with lw grade temp of 100.8, gastric residual 60 cc's HR 94, cooling measures provided, leather products supervisor nurse to notify and update Dr. Fritz. 2111: Pt's BS 92, GTF hold for 12 hrs per MD's order, Insulin lantus 50 units not given due to NPO . Will cont to monitor.
--- NOTE | 2022-02-04 21:11 | NUR ---
Reported by AM nurse patient with gastric residual 300 ml\hr and episodes of increased HR they hold feeding and Tylenol was given for discomfort. Notified regarding residual of 300ml,patient also on Reglan 10 mg IV q 8 hours. Bp 123\64 HR 94,RR 12 Temp 100.8 he ordered to hold GT feeding for 12 hours and start gt feeding tomorrow @ 0900am 20 ml\hr and increase as tolerated and until desire dose met. Also to start D5 1\2 NS 80 ml\hr for hydration while feeding on hold. Will carry pout orders. Son Trevon notified of change of condition. Will continue to monitor.
[2022-02-05 00:05] VITALS: BP 133/46
[2022-02-05] MEDS: ALBUTEROL FS 2.5 MG/0.5 ML VIAL.NEB NEB SCH ×4 (02:00→20:03)
[2022-02-05] MEDS: IPRATROPIUM NEB FS 0.5 MG/2.5 ML AMPUL.NEB NEB SCH ×4 (02:00→20:03)
[2022-02-05] MEDS: METOCLOPRAMIDE HCL 10 MG/2 ML VIAL IV SCH ×3 (05:05→21:07)
[2022-02-05] MEDS: INSULIN ASPART/LISPRO 100 UNIT/ML CARTRIDGE SQ PRN ×2 (05:30→13:47)
[2022-02-05] MEDS: LEVOTHYROXINE SODIUM 125 MCG TABLET GT SCH (05:30)
[2022-02-05] MEDS: BLOOD SUGAR DIAGNOSTIC 1 EACH STRIP IN SCH ×3 (05:30→21:03)
[2022-02-05] MEDS: IV D5/0.45 NACL 1,000 ML IV PRN ×2 (08:00→21:08)
[2022-02-05] MEDS: PENLAC TP SCH (09:00)
[2022-02-05] MEDS: HYDROGEN PEROXIDE 480 ML BOTTLE TP SCH ×2 (09:02→20:03)
[2022-02-05] MEDS: FAMOTIDINE (20 MG) 20 MG TABLET GT SCH (09:19)
[2022-02-05] MEDS: JANUVIA 25 MG GT SCH (09:19)
[2022-02-05] MEDS: FERROUS SULFATE - FOR SA ONLY 330 MG/7.5 ML UDC GT SCH ×3 (09:19→16:59)
[2022-02-05] MEDS: APIXABAN 2.5 MG TABLET GT SCH ×2 (09:19→16:59)
[2022-02-05] MEDS: LEVETIRACETAM 500 MG GT SCH ×2 (09:19→20:34)
[2022-02-05] MEDS: CHOLESTYRAMINE/ASPARTAME 4 G/PKT PACKET GT SCH (09:19)
[2022-02-05] MEDS: BACLOFEN 5 MG GT SCH ×2 (09:19→16:59)
[2022-02-05] MEDS: MULTIVIT W/MINERALS 1 TAB TABLET GT SCH (09:19)
[2022-02-05] MEDS: Z GUARD REMEDY 4 OZ OINT TP SCH ×2 (09:19→20:34)
[2022-02-05] MEDS: SIROLIMUS 1 MG GT SCH (09:19)
[2022-02-05] MEDS: GLUCERNA 1.2 1,000 ML BOTTLE GT PRN (09:37)
[2022-02-05] MEDS: DIGOXIN 0.125 MG TABLET GT SCH (13:44)
[2022-02-05 19:43] VITALS: BP 127/103
[2022-02-05] MEDS: LATANOPROST EYE DROP 0.005% 2.5 ML BOTTLE EACHEYE SCH (21:03)
[2022-02-05] MEDS: TAMSULOSIN 0.4 MG CAP.SR.24H GT SCH (21:03)
[2022-02-05] MEDS: INSULIN GLARGINE, 100 UNIT/ML CARTRIDGE SQ SCH (21:03)
--- NOTE | 2022-02-05 21:05 | NUR ---
Rcvd report from Am nurse that pt tolerating feeding @ 30 cc/ hr during day shift, with gastric residual noted 20 cc only. Increased GTF rate to 40 cc/ hr at this time. Will cont to monitor. Pt still on IV Fluid hydration D5 1/2 NS. BS for tonight is 133, insulin lantus per ordered given. Cont to monitor.
[2022-02-06 00:38] VITALS: BP 131/75
[2022-02-06] MEDS: IPRATROPIUM NEB FS 0.5 MG/2.5 ML AMPUL.NEB NEB SCH ×4 (01:52→20:13)
[2022-02-06] MEDS: ALBUTEROL FS 2.5 MG/0.5 ML VIAL.NEB NEB SCH ×4 (01:52→20:13)
[2022-02-06] MEDS: LEVOTHYROXINE SODIUM 125 MCG TABLET GT SCH (05:11)
[2022-02-06] MEDS: METOCLOPRAMIDE HCL 10 MG/2 ML VIAL IV SCH ×3 (05:24→21:07)
[2022-02-06] MEDS: BLOOD SUGAR DIAGNOSTIC 1 EACH STRIP IN SCH ×3 (05:27→21:15)
[2022-02-06] MEDS: INSULIN ASPART/LISPRO 100 UNIT/ML CARTRIDGE SQ PRN ×2 (05:27→14:40)
--- NOTE | 2022-02-06 06:20 | NUR ---
PATIENT RECEIVED ON TRACH TO VENT WITH SETTINGS OF AC 12, 500 Vt, 30%, +5. SUCTIONED WITH LAVAGE FOR MODERATE, THICK, YELLOW SECRETIONS. GIVEN IN-LINE TREATMENTS WITH NO ADVERSE REACTIONS. AMBU BAG AT BEDSIDE. VENT AND PULSE OXIMETER ALARMS AUDIBLE AND VISIBLE. TRACH CARE DONE. VENT PLUGGED INTO RED OUTLET. Addendum: 02/06/22 at 0621 by JAY OVALLES RT Amended: Links added.
[2022-02-06 07:28] VITALS: BP 144/73
[2022-02-06] MEDS: HYDROGEN PEROXIDE 480 ML BOTTLE TP SCH ×2 (09:08→20:13)
[2022-02-06] MEDS: JANUVIA 25 MG GT SCH (09:41)
[2022-02-06] MEDS: FERROUS SULFATE - FOR SA ONLY 330 MG/7.5 ML UDC GT SCH ×3 (09:41→17:22)
[2022-02-06] MEDS: APIXABAN 2.5 MG TABLET GT SCH ×2 (09:41→17:23)
[2022-02-06] MEDS: BACLOFEN 5 MG GT SCH ×2 (09:42→17:22)
[2022-02-06] MEDS: CHOLESTYRAMINE/ASPARTAME 4 G/PKT PACKET GT SCH (09:42)
[2022-02-06] MEDS: MULTIVIT W/MINERALS 1 TAB TABLET GT SCH (09:42)
[2022-02-06] MEDS: FAMOTIDINE (20 MG) 20 MG TABLET GT SCH (09:42)
[2022-02-06] MEDS: LEVETIRACETAM 500 MG GT SCH ×2 (09:42→20:17)
[2022-02-06] MEDS: SIROLIMUS 1 MG GT SCH (09:42)
[2022-02-06] MEDS: PENLAC TP SCH (09:45)
[2022-02-06] MEDS: Z GUARD REMEDY 4 OZ OINT TP SCH ×2 (09:45→20:17)
--- NOTE | 2022-02-06 10:00 | NUR ---
Residual checked 80 ml, increased GT feeding 50 ml/hr, abdomen soft to touch and not distended. No nausea and vomiting at this time. Kept HOB elevated to prevent aspiration. Patient not tachycardic at this time, on cont. 02 SAT monitoring. No resp. distress. Closely monitored.
[2022-02-06 12:47] VITALS: BP 136/72
[2022-02-06] MEDS: DIGOXIN 0.125 MG TABLET GT SCH (13:00)
[2022-02-06] MEDS: GLUCERNA 1.2 1,000 ML BOTTLE GT PRN (14:51)
--- NOTE | 2022-02-06 15:00 | NUR ---
Patients' gastric residual 300ml, feeding stopped, abdomen soft to touch and not distended, patient had BM today, voiding freely. No nausea and vomiting noted. HR 90, temp. 99. Patient calm, no resp. distress. Continue with IV Fluid of D 5 1/2 NS at 80 ml/hr for hydration. Reglan 10 mg IV push given routinely (1 pm) for gastroparesis. Patient closely monitored.
--- NOTE | 2022-02-06 18:00 | NUR ---
Rechecked patients' gastric residual 280 ml, continue to hold feeding due to high residual. Abdomen remain not distended, no nausea and vomiting, HR 80, TEMP. 99. Patient kept on continuous IV Fluid of D 5 1/2 NS at 80 ml/hr. Left message to Dr. Fritz regarding high residual. Patient not in distress. Closely monitored.
[2022-02-06 19:28] VITALS: BP 131/68
[2022-02-06] MEDS: LATANOPROST EYE DROP 0.005% 2.5 ML BOTTLE EACHEYE SCH (21:15)
[2022-02-06] MEDS: TAMSULOSIN 0.4 MG CAP.SR.24H GT SCH (21:15)
[2022-02-06] MEDS: INSULIN GLARGINE, 100 UNIT/ML CARTRIDGE SQ SCH (21:15)
--- NOTE | 2022-02-06 21:16 | NUR ---
Checked pt's gastric residual : 60 cc obtained - gtf feeding color. Pt 's vs wnl , afebrile, no ss/x of distress, GTf cont to hold until further order from MD, pt on cont IV Fluid hydration D5 1/2 NS @ 80 cc/hr, also pt on routine IV Reglan- given by RN. Lantus due @ 2100 not given due to NPO status, BS : 121. Will cont to monitor and anticipate pt's needs.
[2022-02-07 00:17] VITALS: BP 108/54
[2022-02-07] MEDS: IPRATROPIUM NEB FS 0.5 MG/2.5 ML AMPUL.NEB NEB SCH ×4 (01:53→20:10)
[2022-02-07] MEDS: ALBUTEROL FS 2.5 MG/0.5 ML VIAL.NEB NEB SCH ×4 (01:53→20:10)
[2022-02-07] MEDS: LEVOTHYROXINE SODIUM 125 MCG TABLET GT SCH (05:02)
[2022-02-07] MEDS: METOCLOPRAMIDE HCL 10 MG/2 ML VIAL IV SCH ×3 (05:07→21:11)
[2022-02-07] MEDS: BLOOD SUGAR DIAGNOSTIC 1 EACH STRIP IN SCH ×3 (05:20→21:33)
[2022-02-07] MEDS: INSULIN ASPART/LISPRO 100 UNIT/ML CARTRIDGE SQ PRN ×2 (05:21→12:45)
--- NOTE | 2022-02-07 05:21 | NUR ---
Pt slept well during shift, remain afebrile, no s/sx of resp distress. Gastric residua rechecked this am- NO residual noted, will restart gtf @ lower rate.
[2022-02-07 07:39] VITALS: BP 136/65
[2022-02-07] MEDS: FAMOTIDINE (20 MG) 20 MG TABLET GT SCH (09:00)
[2022-02-07] MEDS: CHOLESTYRAMINE/ASPARTAME 4 G/PKT PACKET GT SCH (09:38)
[2022-02-07] MEDS: MULTIVIT W/MINERALS 1 TAB TABLET GT SCH (09:38)
[2022-02-07] MEDS: JANUVIA 25 MG GT SCH (09:38)
[2022-02-07] MEDS: BACLOFEN 5 MG GT SCH ×2 (09:38→17:51)
[2022-02-07] MEDS: LEVETIRACETAM 500 MG GT SCH ×2 (09:38→21:33)
[2022-02-07] MEDS: APIXABAN 2.5 MG TABLET GT SCH ×2 (09:38→17:51)
[2022-02-07] MEDS: SIROLIMUS 1 MG GT SCH (09:38)
[2022-02-07] MEDS: FERROUS SULFATE - FOR SA ONLY 330 MG/7.5 ML UDC GT SCH ×3 (09:38→17:51)
[2022-02-07] MEDS: PENLAC TP SCH (09:39)
[2022-02-07] MEDS: Z GUARD REMEDY 4 OZ OINT TP SCH ×2 (09:39→21:34)
[2022-02-07] MEDS: HYDROGEN PEROXIDE 480 ML BOTTLE TP SCH ×2 (09:44→20:10)
[2022-02-07] MEDS: DIGOXIN 0.125 MG TABLET GT SCH (13:00)
[2022-02-07 13:37] VITALS: BP 133/73
--- NOTE | 2022-02-07 17:47 | NUR ---
gtube intact and patent. gastric residual at 9am - 30cc, 12noon at 60cc and at 530pm, no gastric residual noted. abdomen soft and not distended. will continue to monitor any untoward changes. endorsed.
[2022-02-07 20:25] VITALS: BP 146/78
[2022-02-07] MEDS: LATANOPROST EYE DROP 0.005% 2.5 ML BOTTLE EACHEYE SCH (21:34)
[2022-02-07] MEDS: TAMSULOSIN 0.4 MG CAP.SR.24H GT SCH (21:34)
[2022-02-07] MEDS: INSULIN GLARGINE, 100 UNIT/ML CARTRIDGE SQ SCH (21:35)
[2022-02-08 01:06] VITALS: BP 122/53
[2022-02-08] MEDS: IPRATROPIUM NEB FS 0.5 MG/2.5 ML AMPUL.NEB NEB SCH ×4 (01:44→19:46)
[2022-02-08] MEDS: ALBUTEROL FS 2.5 MG/0.5 ML VIAL.NEB NEB SCH ×4 (01:44→19:46)
[2022-02-08] MEDS: BLOOD SUGAR DIAGNOSTIC 1 EACH STRIP IN SCH ×3 (05:44→21:46)
[2022-02-08] MEDS: INSULIN ASPART/LISPRO 100 UNIT/ML CARTRIDGE SQ PRN ×3 (05:45→21:48)
[2022-02-08] MEDS: LEVOTHYROXINE SODIUM 125 MCG TABLET GT SCH (05:45)
--- NOTE | 2022-02-08 06:49 | NUR ---
Noticeable redness at the IV site (R forearm), (-) backflow, possible infiltration at the site. Spoked with the nursing supervisor logging for vein finder since the Pt is considered hard stick. She called ICU staff to do the insertion but unsuccessful after one attempt. Reglan not given since Pt has no IV site.
[2022-02-08 07:27] VITALS: BP 155/76
--- NOTE | 2022-02-08 08:45 | NUR ---
Inserted peripheral IV line on right forearm with good blood return. Restarted D5 1/2 NS at 80 mL/hr.
[2022-02-08] MEDS: HYDROGEN PEROXIDE 480 ML BOTTLE TP SCH ×2 (09:16→19:46)
[2022-02-08] MEDS: FERROUS SULFATE - FOR SA ONLY 330 MG/7.5 ML UDC GT SCH ×3 (09:28→17:09)
[2022-02-08] MEDS: APIXABAN 2.5 MG TABLET GT SCH ×2 (09:28→17:09)
[2022-02-08] MEDS: SIROLIMUS 1 MG GT SCH (09:28)
[2022-02-08] MEDS: LEVETIRACETAM 500 MG GT SCH ×2 (09:28→21:45)
[2022-02-08] MEDS: JANUVIA 25 MG GT SCH (09:28)
[2022-02-08] MEDS: PENLAC TP SCH (09:29)
[2022-02-08] MEDS: MULTIVIT W/MINERALS 1 TAB TABLET GT SCH (09:29)
[2022-02-08] MEDS: CHOLESTYRAMINE/ASPARTAME 4 G/PKT PACKET GT SCH (09:29)
[2022-02-08] MEDS: FAMOTIDINE (20 MG) 20 MG TABLET GT SCH (09:29)
[2022-02-08] MEDS: BACLOFEN 5 MG GT SCH ×2 (09:29→17:09)
[2022-02-08] MEDS: Z GUARD REMEDY 4 OZ OINT TP SCH ×2 (09:29→21:46)
[2022-02-08 12:07] VITALS: BP 139/76
[2022-02-08] MEDS: METOCLOPRAMIDE HCL 10 MG/2 ML VIAL IV SCH ×2 (12:25→21:00)
[2022-02-08] MEDS: DIGOXIN 0.125 MG TABLET GT SCH (12:39)
[2022-02-08] MEDS: IV D5/0.45 NACL 1,000 ML IV PRN (15:54)
--- NOTE | 2022-02-08 15:57 | NUR ---
Pt had no gastric residual at noon. Rechecked for gastric residual at this time and still none noted. Received pt on GT feeding Glucerna at 40 mL/hr this morning and increased it at the start of the shift to 50 mL/hr. Pt tolerating feeding at this time.
[2022-02-08] MEDS: GLUCERNA 1.2 1,000 ML BOTTLE GT PRN (16:22)
[2022-02-08 20:15] VITALS: BP 127/54
[2022-02-08] MEDS: TAMSULOSIN 0.4 MG CAP.SR.24H GT SCH (21:46)
[2022-02-08] MEDS: LATANOPROST EYE DROP 0.005% 2.5 ML BOTTLE EACHEYE SCH (21:46)
[2022-02-08] MEDS: INSULIN GLARGINE, 100 UNIT/ML CARTRIDGE SQ SCH (21:47)
--- NOTE | 2022-02-08 21:49 | NUR ---
Prior to med pass GT residual checked. Residual 140 cc. GTF @ 50 ml/hr held. No s/s of any kind of distress. Respiration even and unlabored. Vital signs WNL. No s/s of hypo/hyperglycemia. Abdomen soft to touch without abdominal or bladder distention. HOB elevated at all times. Aspiration precaution observed at all times. No vomiting or nausea noted. Charge nurse aware. Will continue to monitor.
--- NOTE | 2022-02-08 23:04 | NUR ---
GT residual rechecked. Residual is 10 ml. GTF resumed at 50 ml hr. HOB elevated at all times while feeding is on. Aspiration precaution observed at all times. No s/s of any kind of distress. No s/s of hypo/hyperglycemia. Will continue to monitor.
[2022-02-09 01:22] VITALS: BP 144/68
[2022-02-09] MEDS: IPRATROPIUM NEB FS 0.5 MG/2.5 ML AMPUL.NEB NEB SCH ×4 (02:04→20:03)
[2022-02-09] MEDS: ALBUTEROL FS 2.5 MG/0.5 ML VIAL.NEB NEB SCH ×4 (02:04→20:03)
--- NOTE | 2022-02-09 03:53 | NUR ---
Gt residual rechecked. Residual is 5 ml. No s/s of any kind of distress. No nausea or vomiting noted. HOB elevated and aspiration precaution observed at all times. Will continue to monitor and will endorse to next shift.
[2022-02-09] MEDS: METOCLOPRAMIDE HCL 10 MG/2 ML VIAL IV SCH ×3 (05:00→21:00)
[2022-02-09] MEDS: BLOOD SUGAR DIAGNOSTIC 1 EACH STRIP IN SCH ×3 (05:37→21:46)
[2022-02-09] MEDS: LEVOTHYROXINE SODIUM 125 MCG TABLET GT SCH (05:37)
[2022-02-09] MEDS: INSULIN ASPART/LISPRO 100 UNIT/ML CARTRIDGE SQ PRN ×3 (05:38→21:48)
[2022-02-09 08:02] VITALS: BP 112/64
[2022-02-09] MEDS: APIXABAN 2.5 MG TABLET GT SCH ×2 (09:07→17:36)
[2022-02-09] MEDS: JANUVIA 25 MG GT SCH (09:08)
[2022-02-09] MEDS: CHOLESTYRAMINE/ASPARTAME 4 G/PKT PACKET GT SCH (09:08)
[2022-02-09] MEDS: Z GUARD REMEDY 4 OZ OINT TP SCH ×2 (09:08→21:46)
[2022-02-09] MEDS: FERROUS SULFATE - FOR SA ONLY 330 MG/7.5 ML UDC GT SCH ×3 (09:08→17:36)
[2022-02-09] MEDS: SIROLIMUS 1 MG GT SCH (09:08)
[2022-02-09] MEDS: LEVETIRACETAM 500 MG GT SCH ×2 (09:08→21:46)
[2022-02-09] MEDS: PENLAC TP SCH (09:08)
[2022-02-09] MEDS: FAMOTIDINE (20 MG) 20 MG TABLET GT SCH (09:08)
[2022-02-09] MEDS: MULTIVIT W/MINERALS 1 TAB TABLET GT SCH (09:08)
[2022-02-09] MEDS: BACLOFEN 5 MG GT SCH ×2 (09:08→17:37)
[2022-02-09] MEDS: HYDROGEN PEROXIDE 480 ML BOTTLE TP SCH ×2 (09:25→20:03)
[2022-02-09] MEDS: DIGOXIN 0.125 MG TABLET GT SCH (12:35)
[2022-02-09] MEDS: IV D5/0.45 NACL 1,000 ML IV PRN (17:30)
--- NOTE | 2022-02-09 19:00 | NUR ---
Pt tolerating GT feeding well, no gastric residuals noted. Increased GT feeding from 50 to 60 mL/hr. Pt still on D5 1/2 NS at 80 mL/hr and receiving Reglan 10 mg IV q [address] Fritz aware.
[2022-02-09] MEDS: GLUCERNA 1.2 1,000 ML BOTTLE GT PRN (19:03)
[2022-02-09 20:14] VITALS: BP 135/65
[2022-02-09] MEDS: LATANOPROST EYE DROP 0.005% 2.5 ML BOTTLE EACHEYE SCH (21:46)
[2022-02-09] MEDS: TAMSULOSIN 0.4 MG CAP.SR.24H GT SCH (21:46)
[2022-02-09] MEDS: INSULIN GLARGINE, 100 UNIT/ML CARTRIDGE SQ SCH (21:47)
--- NOTE | 2022-02-09 21:48 | NUR ---
GT residual checked prior to med pass. Residual is 30 ml and tolerating GTF well. No s/s of any kind of distress. HOB elevated and aspiration precaution observed at all times. Will continue to monitor.
[2022-02-10] MEDS: IPRATROPIUM NEB FS 0.5 MG/2.5 ML AMPUL.NEB NEB SCH ×4 (02:13→19:58)
[2022-02-10] MEDS: ALBUTEROL FS 2.5 MG/0.5 ML VIAL.NEB NEB SCH ×4 (02:13→19:58)
[2022-02-10 05:26] VITALS: BP 134/59
[2022-02-10] MEDS: METOCLOPRAMIDE HCL 10 MG/2 ML VIAL IV SCH ×3 (05:30→21:01)
--- NOTE | 2022-02-10 05:35 | NUR ---
PATIENT RECEIVED ON TRACH TO VENT WITH SETTINGS OF AC 12, 500 Vt, 30%, +5. SUCTIONED FOR MINIMAL, THICK, YELLOW SECRETIONS. GIVEN IN-LINE TREATMENTS WITH NO ADVERSE REACTIONS. AMBU BAG AT BEDSIDE. VENT AND PULSE OXIMETER ALARMS AUDIBLE AND VISIBLE. TRACH CARE DONE. VENT PLUGGED INTO RED OUTLET. Addendum: 02/10/22 at 0536 by JAY OVALLES RT Amended: Links added.
[2022-02-10] MEDS: BLOOD SUGAR DIAGNOSTIC 1 EACH STRIP IN SCH ×3 (05:51→21:32)
[2022-02-10] MEDS: LEVOTHYROXINE SODIUM 125 MCG TABLET GT SCH (05:51)
[2022-02-10] MEDS: INSULIN ASPART/LISPRO 100 UNIT/ML CARTRIDGE SQ PRN ×3 (05:51→21:33)
[2022-02-10 07:39] VITALS: BP 118/60
[2022-02-10 08:10] LABS: BASOPHILS % (AUTO) 0.2 % (0.0-2.0); EOSINOPHILS % (AUTO) 4.6 % (0.0-6.0); HEMATOCRIT 23 % (39-51); LYMPHOCYTES # (AUTO) 0.7 K/uL (0.8-4.8); LYMPHOCYTES % (AUTO) 14.9 % (20.0-44.0); MEAN CORPUSCULAR HGB CONC 30 g/dl (31.0-36.0); MEAN CORPUSCULAR VOLUME 99 fL (80-96); MONOCYTES # (AUTO) 0.5 K/uL (0.1-1.30); MONOCYTES % (AUTO) 9.5 % (2.0-12.0); NEUTROPHILS # (AUTO) 3.4 K/uL (1.8-8.9); NEUTROPHILS % (AUTO) 70.8 % (43.0-81.0); PLATELET COUNT (AUTO) 121 K/uL (150-450); RED BLOOD CELL COUNT(AUTO) 2.31 MIL/uL (4.5-6.0); WHITE BLOOD COUNT (AUTO) 4.8 K/uL (4.3-11.0)
[2022-02-10 08:32] LABS: HEMOGLOBIN 6.9 g/dL (13.5-17.5)
[2022-02-10] MEDS: HYDROGEN PEROXIDE 480 ML BOTTLE TP SCH ×2 (08:59→21:45)
--- NOTE | 2022-02-10 09:00 | NUR ---
Received a critical lab value, Hbg 6.9, relayed CBC result to Dr. Fritz. Asked MD for stop date of IVF, patient is on D5 1/2 NS at 80cc/hr., with gastric residual varies 10 ml to 150 ml according to retail shift leader report. Asked lab for BMP result, this nurse was told that they will repeat the test as results are erroneous, (i.e. glucose 1000 mg/dl), it could have been that lab draw was done in the same arm where IVF is connected. Dr. Fritz ordered to repeat CBC and BMP.
[2022-02-10 09:44] LABS: BASOPHILS % (AUTO) 0.2 % (0.0-2.0); EOSINOPHILS % (AUTO) 4.4 % (0.0-6.0); HEMATOCRIT 28 % (39-51); HEMOGLOBIN 9.1 g/dL (13.5-17.5); LYMPHOCYTES % (AUTO) 16.4 % (20.0-44.0); MEAN CORPUSCULAR HGB CONC 32 g/dl (31.0-36.0); MEAN CORPUSCULAR VOLUME 93 fL (80-96); MONOCYTES # (AUTO) 0.6 K/uL (0.1-1.30); MONOCYTES % (AUTO) 10.1 % (2.0-12.0); NEUTROPHILS # (AUTO) 4.4 K/uL (1.8-8.9); NEUTROPHILS % (AUTO) 68.9 % (43.0-81.0); PLATELET COUNT (AUTO) 162 K/uL (150-450); RED BLOOD CELL COUNT(AUTO) 3.05 MIL/uL (4.5-6.0); WHITE BLOOD COUNT (AUTO) 6.3 K/uL (4.3-11.0)
[2022-02-10 09:56] LABS: CALCIUM, SERUM 8.4 mg/dL (8.5-10.1); CREATININE 1.3 mg/dL (0.6-1.3); MAGNESIUM 2.1 mg/dL (1.8-2.4); PHOSPHORUS 2.7 mg/dL (2.5-4.9)
[2022-02-10] MEDS: SIROLIMUS 1 MG GT SCH (09:58)
[2022-02-10] MEDS: FAMOTIDINE (20 MG) 20 MG TABLET GT SCH (09:58)
[2022-02-10] MEDS: LEVETIRACETAM 500 MG GT SCH ×2 (09:58→21:03)
[2022-02-10] MEDS: MULTIVIT W/MINERALS 1 TAB TABLET GT SCH (09:58)
[2022-02-10] MEDS: CHOLESTYRAMINE/ASPARTAME 4 G/PKT PACKET GT SCH (09:58)
[2022-02-10] MEDS: JANUVIA 25 MG GT SCH (09:58)
[2022-02-10] MEDS: BACLOFEN 5 MG GT SCH ×2 (09:58→17:27)
[2022-02-10] MEDS: Z GUARD REMEDY 4 OZ OINT TP SCH ×2 (09:58→21:03)
[2022-02-10] MEDS: APIXABAN 2.5 MG TABLET GT SCH ×2 (09:58→17:27)
[2022-02-10] MEDS: FERROUS SULFATE - FOR SA ONLY 330 MG/7.5 ML UDC GT SCH ×3 (09:58→17:27)
[2022-02-10] MEDS: PENLAC TP SCH (09:58)
--- NOTE | 2022-02-10 10:40 | NUR ---
Redrawn CBC and BMP result relayed to Dr. Fritz , Hbg 9.1, no new order given at this time.
[2022-02-10] MEDS: DIGOXIN 0.125 MG TABLET GT SCH (12:16)
[2022-02-10 12:42] VITALS: BP 141/76
--- NOTE | 2022-02-10 15:04 | NUR ---
Spoke with Rebecca insurance investigator to evaluate patient's tube feeding. Patient still having high gastric residual, obtained 200 ml this shift, according to insurance investigator, patient is receiving the minimum required calorie but she will refer it to senior insurance investigator to further evaluate patient's nutritional needs. Endorsed.
[2022-02-10] MEDS: GLUCERNA 1.2 1,000 ML BOTTLE GT PRN (17:29)
[2022-02-10 20:16] VITALS: BP 147/63
[2022-02-10] MEDS: TAMSULOSIN 0.4 MG CAP.SR.24H GT SCH (21:03)
[2022-02-10] MEDS: LATANOPROST EYE DROP 0.005% 2.5 ML BOTTLE EACHEYE SCH (21:03)
--- NOTE | 2022-02-10 21:06 | NUR ---
Prior to med pass GT residual checked. Residual is 160 cc. GTF held. No s/s of any kind of distress. Respiration even and unlabored without SOB noted. Vital signs WNL. No s/s of hypo/hyperglycemia. Abdomen soft to touch without abdominal or bladder distention. HOB elevated. Aspiration precaution observed at all times. No vomiting or nausea noted. Charge nurse aware. Will continue to monitor.
[2022-02-10] MEDS: INSULIN GLARGINE, 100 UNIT/ML CARTRIDGE SQ SCH (21:32)
--- NOTE | 2022-02-10 23:02 | NUR ---
GT residual rechecked. Residual is 130 ml. Continue to hold GTF. No s/s of any kind of distress. No s/s of hypo/hyperglycemia. Charge nurse aware. Will continue to monitor.
--- NOTE | 2022-02-11 00:42 | NUR ---
Gastric residual rechecked. Residual is 35 ml. GTF resumed as ordered. HOB elevated while feeding is on. Aspiration precaution observed at all times. No s/s of any kind of distress. Respiration even and unlabored without SOB noted. No s/s of hypo/hyperglycemia. No s/s of discomfort. Charge nurse aware. Will continue to monitor. Will endorse to next shift.
[2022-02-11 01:27] VITALS: BP 135/67
[2022-02-11] MEDS: ALBUTEROL FS 2.5 MG/0.5 ML VIAL.NEB NEB SCH ×4 (02:06→19:44)
[2022-02-11] MEDS: IPRATROPIUM NEB FS 0.5 MG/2.5 ML AMPUL.NEB NEB SCH ×4 (02:06→19:44)
[2022-02-11] MEDS: METOCLOPRAMIDE HCL 10 MG/2 ML VIAL IV SCH ×3 (05:20→20:49)
[2022-02-11] MEDS: LEVOTHYROXINE SODIUM 125 MCG TABLET GT SCH (05:39)
[2022-02-11] MEDS: BLOOD SUGAR DIAGNOSTIC 1 EACH STRIP IN SCH ×3 (05:39→21:26)
[2022-02-11] MEDS: INSULIN ASPART/LISPRO 100 UNIT/ML CARTRIDGE SQ PRN ×3 (05:40→21:26)
[2022-02-11 07:32] VITALS: BP 135/86
[2022-02-11 07:42] LABS: CALCIUM, SERUM 8.4 mg/dL (8.5-10.1); CREATININE 1.3 mg/dL (0.6-1.3); MAGNESIUM 2.2 mg/dL (1.8-2.4); POTASSIUM 3.9 mmol/L (3.5-5.1)
[2022-02-11 07:50] LABS: BASOPHILS % (AUTO) 0.3 % (0.0-2.0); EOSINOPHILS % (AUTO) 4.9 % (0.0-6.0); HEMATOCRIT 26 % (39-51); HEMOGLOBIN 8.3 g/dL (13.5-17.5); LYMPHOCYTES # (AUTO) 0.8 K/uL (0.8-4.8); LYMPHOCYTES % (AUTO) 12.1 % (20.0-44.0); MEAN CORPUSCULAR HGB CONC 32 g/dl (31.0-36.0); MEAN CORPUSCULAR VOLUME 93 fL (80-96); MONOCYTES # (AUTO) 0.7 K/uL (0.1-1.30); MONOCYTES % (AUTO) 10.9 % (2.0-12.0); NEUTROPHILS # (AUTO) 4.7 K/uL (1.8-8.9); NEUTROPHILS % (AUTO) 71.8 % (43.0-81.0); PLATELET COUNT (AUTO) 164 K/uL (150-450); RED BLOOD CELL COUNT(AUTO) 2.78 MIL/uL (4.5-6.0); WHITE BLOOD COUNT (AUTO) 6.6 K/uL (4.3-11.0)
[2022-02-11] MEDS: BACLOFEN 5 MG GT SCH ×2 (09:25→17:33)
[2022-02-11] MEDS: LEVETIRACETAM 500 MG GT SCH ×2 (09:25→20:52)
[2022-02-11] MEDS: FAMOTIDINE (20 MG) 20 MG TABLET GT SCH (09:25)
[2022-02-11] MEDS: APIXABAN 2.5 MG TABLET GT SCH ×2 (09:25→17:33)
[2022-02-11] MEDS: Z GUARD REMEDY 4 OZ OINT TP SCH ×2 (09:25→20:52)
[2022-02-11] MEDS: JANUVIA 25 MG GT SCH (09:25)
[2022-02-11] MEDS: SIROLIMUS 1 MG GT SCH (09:25)
[2022-02-11] MEDS: MULTIVIT W/MINERALS 1 TAB TABLET GT SCH (09:25)
[2022-02-11] MEDS: CHOLESTYRAMINE/ASPARTAME 4 G/PKT PACKET GT SCH (09:25)
[2022-02-11] MEDS: PENLAC TP SCH (09:25)
[2022-02-11] MEDS: FERROUS SULFATE - FOR SA ONLY 330 MG/7.5 ML UDC GT SCH ×3 (09:25→17:33)
[2022-02-11] MEDS: HYDROGEN PEROXIDE 480 ML BOTTLE TP SCH ×2 (09:48→21:30)
[2022-02-11] MEDS: DIGOXIN 0.125 MG TABLET GT SCH (12:01)
[2022-02-11 12:12] VITALS: BP 164/91
--- NOTE | 2022-02-11 14:41 | NUR ---
Facility Update: [facility] notified pt.'s Son, Trevon via email that, "A [employer] employee tested positive for COVID-19 this week. There was no resident exposure. Residents and staff will continue receiving routine testing as outlined by [facility] of Public Health. [facility] will continue to implement [facility] infection control protocols and continue screening employees before every shift. [facility] continues to follow infection control protocols and screen our residents and staff daily for symptoms".
[2022-02-11] MEDS: GLUCERNA 1.2 1,000 ML BOTTLE GT PRN (17:34)
--- NOTE | 2022-02-11 18:43 | NUR ---
No gastric residuals noted during this shift. Increased GT feeding Glucerna from 60 to 65 mL/hr. Dr Fritz ordered to DC D5 1/2 NS at 80 mL/hr. Notified son.
[2022-02-11 19:21] VITALS: BP 158/85
[2022-02-11] MEDS: LATANOPROST EYE DROP 0.005% 2.5 ML BOTTLE EACHEYE SCH (21:26)
[2022-02-11] MEDS: TAMSULOSIN 0.4 MG CAP.SR.24H GT SCH (21:26)
[2022-02-11] MEDS: INSULIN GLARGINE, 100 UNIT/ML CARTRIDGE SQ SCH (21:26)
[2022-02-12 01:40] VITALS: BP 115/55
[2022-02-12] MEDS: IPRATROPIUM NEB FS 0.5 MG/2.5 ML AMPUL.NEB NEB SCH ×3 (01:48→13:30)
[2022-02-12] MEDS: ALBUTEROL FS 2.5 MG/0.5 ML VIAL.NEB NEB SCH ×3 (01:48→13:30)
[2022-02-12] MEDS: LEVOTHYROXINE SODIUM 125 MCG TABLET GT SCH (05:21)
[2022-02-12] MEDS: BLOOD SUGAR DIAGNOSTIC 1 EACH STRIP IN SCH (05:21)
[2022-02-12] MEDS: METOCLOPRAMIDE HCL 10 MG/2 ML VIAL IV SCH (05:25)
--- NOTE | 2022-02-12 06:36 | NUR ---
"Patient with episodes of low BS 45mg|dl ,D50 given IV, also HR is between 40-45 bpm, arousable with deep pain.Temp 96.0 warming blanket provided. Re checked BS is up to 157mg|dl. Notified Dr. Fritz with orders to hold insulin. Son Trevon notified.Will continue to monitor and will endorse to AM shift."
--- NOTE | 2022-02-12 06:49 | NUR ---
Re-checked pt's temperature, obtained 97.6 ( Oral) cont with warming measures, HR still at 45-50's, SP02 98%, pt is arousable to deep tactile stimuli. MD aware re: Pt's condition. To endorse continuation of care and close monitoring to am oncoming nurse.
[2022-02-12 07:28] VITALS: BP 156/48
[2022-02-12] MEDS: HYDROGEN PEROXIDE 480 ML BOTTLE TP SCH (07:45)
--- NOTE | 2022-02-12 07:52 | NUR ---
Dr. Fritz notified patient's level on consciousness is altered, not responsive to stimulation and HR ranges between 37-40 bpm, looks pale, but not in any form of respiratory distress, O2 saturation 100%,T 97.6, B/P 156/48. Dr. Fritz ordered to transfer patient to ER for evaluation. Patient's son Trevon notified of transfer due to change in LOC and bradycardia. Nursing supervisor insulation informed.
--- NOTE | 2022-02-12 08:15 | NUR ---
Verbal report given to ANNI Corbin in ER regarding patient's condition and reason for transfer. ER Admitting notified of transfer for new account.
--- NOTE | 2022-02-12 08:40 | NUR ---
Resident transferred to ER for evaluation accompanied by 2 LN and RT, Patient on ventilator with current vent setting AC 12, TV 500, F102 30%, Peep +5, Report given to admitting ER physician Dr. Ji regarding patient's current and baseline condition. Copies of physician's orders, progress notes, list of medications, labs, preferred intensity of care, Covid-19 vaccination and flu vaccine information given to MD. Patient stable upon transfer, not in distress, O2 sat 100%, HR 48.
[2022-02-12] MEDS ORDERED: INSU100V7 SQ (09:14)
[2022-02-12] MEDS ORDERED: DIGO125T GT (09:14)
[2022-02-12] MEDS ORDERED: HYDR1TOW4 TP (09:14)
[2022-02-12] MEDS ORDERED: FAMO-131 GT (09:14)
[2022-02-12] MEDS ORDERED: BISA10SU11 RC (09:14)
[2022-02-12] MEDS ORDERED: GUAI-671 GT (09:14)
[2022-02-12] MEDS ORDERED: POLY17PO4 GT (09:14)
[2022-02-12] MEDS ORDERED: CHOL4PAC2 GT (09:14)
[2022-02-12] MEDS ORDERED: FERR325T23 GT (10:58)
[2022-02-12] MEDS ORDERED: SITA50TA GT (10:58)
[2022-02-12] MEDS ORDERED: SIRO1SOL GT (10:58)
[2022-02-12] MEDS ORDERED: LEVE250T2 GT (10:58)
[2022-02-12] MEDS ORDERED: BACL10TA GT (10:58)
--- NOTE | 2022-02-15 10:00 | NUR ---
Dr Mak called to ask for pt's supply of Sirolimus. Sent pt's Sirolimus bottle to [facility] for his use while he is there.
[2022-02-22] MEDS ORDERED: VANC125C11 PO (18:19)
== END 2022-02-12 18:00 | disposition short-term general hospital (02) | DRG 207 ==
LOC: SA 00:01 → UNDOLOA 02-12 09:00 → UNDODISIN 02-22 20:46
PROVIDERS: ADMIT Internal Medicine; ATTEND Internal Medicine
PROC: 5A1955Z Respiratory Ventilation, Greater than 96 Consecutive Hours (ICD-10-PCS; principal; 2021-10-17)
DX: J96.11 Chronic respiratory failure with hypoxia (principal); G92.8 Other toxic encephalopathy; N17.0 Acute kidney failure with tubular necrosis; D84.9 Immunodeficiency, unspecified; I50.32 Chronic diastolic (congestive) heart failure; T86.12 Kidney transplant failure; D68.59 Other primary thrombophilia; E44.0 Moderate protein-calorie malnutrition; I48.20 Chronic atrial fibrillation, unspecified; E87.1 Hypo-osmolality and hyponatremia; D69.6 Thrombocytopenia, unspecified; E03.9 Hypothyroidism, unspecified; E11.65 Type 2 diabetes mellitus with hyperglycemia; Z93.1 Gastrostomy status; Z90.5 Acquired absence of kidney; Z86.73 Personal history of transient ischemic attack (TIA), and cerebral infarction without residual deficits; Z93.0 Tracheostomy status; I11.0 Hypertensive heart disease with heart failure; D63.8 Anemia in other chronic diseases classified elsewhere; G40.909 Epilepsy, unspecified, not intractable, without status epilepticus; I70.0 Atherosclerosis of aorta; L60.3 Nail dystrophy; N40.0 Benign prostatic hyperplasia without lower urinary tract symptoms; Z74.01 Bed confinement status; E11.43 Type 2 diabetes mellitus with diabetic autonomic (poly)neuropathy; E78.5 Hyperlipidemia, unspecified; F41.9 Anxiety disorder, unspecified; I25.2 Old myocardial infarction; J44.9 Chronic obstructive pulmonary disease, unspecified; K31.84 Gastroparesis; K80.20 Calculus of gallbladder without cholecystitis without obstruction; M89.9 Disorder of bone, unspecified; N26.1 Atrophy of kidney (terminal); R13.10 Dysphagia, unspecified; Z20.822 Contact with and (suspected) exposure to COVID-19; Z87.440 Personal history of urinary (tract) infections
CPT/HCPCS: 31720; 36415; 80048-TC; 80162-TC; 82962-TC; 83735-TC; 84100-TC; 84443-TC; 85025-TC; 86580-TC; 94003-TC; 94760-TC; 94762-TC; 94799-TC; A4623; A7526; J1815; J2765; U0003

== ENCOUNTER 2022-02-12 08:46 | Inpatient (IN) | payer MEDICARE, OTHER ==
[~2022-02-12] VITALS: Ht 165.1 cm; Wt 55.3 kg
--- NOTE | 2022-02-12 08:58 | NUR ---
PT TAKENT TO CT VIA GURNERY WITH ACLS PROTOCOLS IN PLACE
[2022-02-12] MEDS ORDERED: IV NS 0.9% 1,000 ML BAG IV ONE (09:00)
--- NOTE | 2022-02-12 09:04 | NUR ---
MOVE SHEET SUBMITTED AND CALLED FOR ICU BED.
[2022-02-12] MEDS ORDERED: INSU100V7 SQ (09:14)
[2022-02-12] MEDS ORDERED: FAMO-131 GT (09:14)
[2022-02-12] MEDS ORDERED: CHOL4PAC2 GT (09:14)
[2022-02-12] MEDS ORDERED: GUAI-671 GT (09:14)
[2022-02-12] MEDS ORDERED: BISA10SU11 RC (09:14)
[2022-02-12] MEDS ORDERED: HYDR1TOW4 TP (09:14)
[2022-02-12] MEDS ORDERED: POLY17PO4 GT (09:14)
[2022-02-12] MEDS ORDERED: DIGO125T GT (09:14)
[2022-02-12] MEDS ORDERED: LEVETIRACETAM (500MG) 1,000 MG in IV NS 0.9% 100 ML IV STA (09:21)
--- NOTE | 2022-02-12 09:25 | NUR ---
IV ESTABLISHED L HAND 20G. LABS DRAWN AND COLLECTED AT BEDSIDE.
--- NOTE | 2022-02-12 09:26 | NUR ---
COVID ANTIGEN COLLECTED AND SENT
--- NOTE | 2022-02-12 09:29 | NUR ---
X RAY AT BEDSIDE
--- NOTE | 2022-02-12 09:31 | NUR ---
unresponsive genralized staffe accucheck done 117mg/ld with trach vent sitting tv 500 ac 12 peep 5 ps 10 fio2 30% o2 sat 100%
--- NOTE | 2022-02-12 09:33 | NUR ---
IV ESTABLIHSED L FOREARM 20G AND L WRIST 20G.
[2022-02-12 09:40] LABS: BASOPHILS % (AUTO) 0.1 % (0.0-2.0); CALCIUM, SERUM 9.2 mg/dL (8.5-10.1); CARBON DIOXIDE 28 mmol/L (21-32); CHLORIDE 101 mmol/L (98-107); CREATININE 1.2 mg/dL (0.6-1.3); EOSINOPHILS % (AUTO) 0.2 % (0.0-6.0); GLUCOSE 126 mg/dL (74-106); HEMATOCRIT 30 % (39-51); HEMOGLOBIN 9.5 g/dL (13.5-17.5); LYMPHOCYTES # (AUTO) 0.8 K/uL (0.8-4.8); LYMPHOCYTES % (AUTO) 10.8 % (20.0-44.0); MEAN CORPUSCULAR HGB CONC 32 g/dl (31.0-36.0); MEAN CORPUSCULAR VOLUME 93 fL (80-96); MONOCYTES # (AUTO) 0.3 K/uL (0.1-1.30); MONOCYTES % (AUTO) 4.5 % (2.0-12.0); NEUTROPHILS # (AUTO) 6.1 K/uL (1.8-8.9); NEUTROPHILS % (AUTO) 84.4 % (43.0-81.0); PLATELET COUNT (AUTO) 203 K/uL (150-450); POTASSIUM 4.7 mmol/L (3.5-5.1); SODIUM SERUM 137 mmol/L (136-145); UREA NITROGEN, BLOOD 20 mg/dL (7-18); WHITE BLOOD COUNT (AUTO) 7.3 K/uL (4.3-11.0)
[2022-02-12 09:46] LABS: ALANINE AMINOTRANSFERASE 19 U/L (12-78); ALBUMIN 2.9 g/dL (3.4-5.0); ALKALINE PHOSPHATASE 99 U/L (46-116); ASPARTATE AMINOTRANSFERASE 43 U/L (15-37); BILIRUBIN,DIRECT 0.2 mg/dL (0.0-0.2); BILIRUBIN,TOTAL 0.6 mg/dL (0.2-1.0); TOTAL PROTEIN, SERUM 8.9 g/dL (6.4-8.2)
[2022-02-12 09:52] LABS: ACETAMINOPHEN 0 ug/ml (10-30)
--- NOTE | 2022-02-12 09:53 | NUR ---
[address], 200CC URINE OUTPUT AFTER INSERTION. URINE COLLECTED AND SENT TO LAB.
[2022-02-12 09:54] LABS: SERUM AMMONIA 27 umol/L (11-32)
--- NOTE | 2022-02-12 10:05 | NUR ---
son at bed side condition up date wating for icu bed
[2022-02-12 10:16] LABS: BILIRUBIN,URINE NEGATIVE (NEGATIVE); COLOR,URINE YELLOW (YELLOW); LEUKOCYTE ESTERASE ,URINE NEGATIVE (NEGATIVE); NITRITE, URINE NEGATIVE (NEGATIVE); PROTEIN,URINE >=300 mg/dl (NEGATIVE); UGLUCOSE NEGATIVE (NEGATIVE); UROBILINOGEN,URINE 0.2 EU/dL (0.2)
[2022-02-12] MEDS ORDERED: BISACODYL SUPP (10 MG) 10 MG/SUPP.RECT SUPP.RECT RC PRN (10:30)
[2022-02-12] MEDS ORDERED: DEXTROSE 50%-WATER 50 ML DISP.SYRIN IV PRN ×2 (10:30)
[2022-02-12] MEDS ORDERED: GLUCERNA 1.2 1,000 ML BOTTLE NG PRN (10:30)
[2022-02-12] MEDS ORDERED: MAG HYDROX/AL HYDROX/SIMETH 30 ML UDC PO PRN (10:30)
[2022-02-12] MEDS ORDERED: *INSULIN REGULAR(HUMULIN R)HUM 100 UNIT/ML VIAL SQ PRN (10:30)
[2022-02-12] MEDS ORDERED: MAGNESIUM HYDROXIDE 30 ML UDC PO PRN (10:30)
[2022-02-12] MEDS ORDERED: POLYETHYLENE GLYCOL 3350 17 GM POWD.PACK GT PRN (10:30)
[2022-02-12] MEDS ORDERED: Z GUARD REMEDY 4 OZ OINT TP PRN (10:30)
[2022-02-12] MEDS ORDERED: INSULIN REGULAR, HUMAN 100 UNIT/ML 3 ML VIAL SQ PRN (10:30)
[2022-02-12] MEDS ORDERED: ONDANSETRON HCL/PF 4 MG/2 ML VIAL IVP PRN (10:30)
[2022-02-12 10:32] LABS: THYROID STIMULATING HORMONE 0.988 uIU/mL (0.358-3.74)
[2022-02-12] MEDS ORDERED: SIRO1SOL GT (10:58)
[2022-02-12] MEDS ORDERED: SITA50TA GT (10:58)
[2022-02-12] MEDS ORDERED: BACL10TA GT (10:58)
[2022-02-12] MEDS ORDERED: FERR325T23 GT (10:58)
[2022-02-12] MEDS ORDERED: LEVE250T2 GT (10:58)
--- NOTE | 2022-02-12 11:07 | NUR ---
GOT BED 108
--- NOTE | 2022-02-12 11:07 | NUR ---
bed MONITER PT therese ordonez for icu
[2022-02-12 11:25] LABS: BACTERIA,URINE Moderate /HPF (None Seen); CALCIUM CARBONATE CRYSTALS,UR None Seen /HPF (None Seen); CALCIUM OXALATE CRYSTALS,UR None Seen /HPF (None Seen); CALCIUM PHOSPHATE CRYSTALS,UR None Seen /HPF (None Seen); COARSE GRANULAR CASTS,URINE None Seen /LPF (None Seen); CYSTINE CRYSTALS,URINE None Seen /HPF (None Seen); FATTY CASTS,URINE None Seen /LPF (None Seen); FINE GRANULAR CASTS,URINE None Seen /LPF (None Seen); HYALINE CASTS, URINE None Seen /LPF (None Seen); MUCUS,URINE None Seen /LPF (None Seen); OTHER CRYSTALS,URINE None Seen /HPF (None Seen); RED BLOOD CELL CASTS,URINE None Seen /LPF (None Seen); SPERM,URINE None Seen /HPF (None Seen); SQUAMOUS EPITHELIAL CELL,UR 0-2 /HPF (None Seen); TRICHOMONAS,URINE None Seen /HPF (None Seen); TRIPLE PHOSPHATE CRYSTAL,UR None Seen /HPF (None Seen); TYROSINE CRYSTAL,URINE None seen /HPF (None Seen); URIC ACID CRYSTALS,URINE None Seen /HPF (None Seen); URINE AMORPHOUS PHOSPHATES None Seen /HPF (None Seen); URINE AMORPHOUS URATE None Seen /HPF (None Seen); WAXY CASTS,URINE None Seen /LPF (None Seen); WBC,URINE 0-2 /HPF (0-3); YEAST,URINE None Seen /HPF (None Seen)
[2022-02-12] MEDS ORDERED: ONDANSETRON 4 MG TAB.RAPDIS GT PRN (11:30)
[2022-02-12] MEDS ORDERED: BLOOD SUGAR DIAGNOSTIC 1 EACH STRIP VI SCH (12:00)
--- NOTE | 2022-02-12 12:00 | NUR ---
plan to admite pt on [facility] ROOM 108 HAND OFF TO ZE RN VS NO CHANGE
--- NOTE | 2022-02-12 12:30 | NUR ---
SALES PROJECT ADMINISTRATOR NOTE PATIENT TRANSFERRED TO UNIT FROM ER, TRANSFERRED TO BED WITHOUT INCIDENT. PATIENT LAYING IN BED, A/O X 1, OBTUNDED. PATIENT TOLERATING WELL ON MECHANICAL VENT. GLUCERNA 1.2 HORTENCIA RUNNING VIA G-TUBE @ 65 ML/HR. KNOX CATHETER IN PLACE DRAINING CLEAR YELLOW URINE TO GRAVITY. L HAND # 20 G AND R HAND HEP LOCK IN PLACE, CLEAN, AND FLUSHING WELL. L AC # 20 G CLEAN, INTACT, AND FLUSHING WELL WITH NS RUNNING @ 75 ML/HR. TELE MONITOR IN PLACE READING NSR 84. SAFETY PRECAUTIONS IN PLACE: BED IN LOWEST LOCKED POSITION, SIDERAILS UP x 2, AND BRAKES ON. TABLE AND CALL LIGHT WITHIN REACH. WILL CONTINUE TO MONITOR.
[2022-02-12] MEDS: LEVETIRACETAM (500MG) 500 MG in IV NS 0.9% 100 ML IV SCH ×2 (12:44→23:48)
[2022-02-12] MEDS: APIXABAN 2.5 MG TABLET GT SCH ×2 (12:47→21:07)
--- NOTE | 2022-02-12 12:49 | NUR ---
TRANSFERED PT WITH EMT AND RT TO [facility]
[2022-02-12 13:00] VITALS: BP 166/74
[2022-02-12] MEDS: BLOOD SUGAR DIAGNOSTIC 1 EACH STRIP IN SCH ×2 (13:00→22:57)
[2022-02-12] MEDS: DIGOXIN 0.125 MG TABLET GT SCH (13:00)
--- NOTE | 2022-02-12 13:44 | NUR ---
telescope repairer note heart rate 60 hold digoxin at this time
[2022-02-12] MEDS: ALBUTEROL FS 2.5 MG/0.5 ML VIAL.NEB NEB SCH ×2 (14:01→19:47)
[2022-02-12] MEDS: IPRATROPIUM NEB FS 0.5 MG/2.5 ML AMPUL.NEB NEB SCH ×2 (14:02→19:47)
[2022-02-12] MEDS: IV NS 0.9% 1,000 ML IV PRN (14:55)
[2022-02-12] MEDS: GLUCERNA 1.2 1,000 ML BOTTLE NG PRN (15:31)
[2022-02-12 16:00] VITALS: BP 160/76
--- NOTE | 2022-02-12 19:00 | NUR ---
RN CLOSING NOTES PATIENT LAYING IN BED, A/O X 1, OBTUNDED. PATIENT TOLERATING WELL ON MECHANICAL VENT. GLUCERNA 1.2 HORTENCIA RUNNING VIA G-TUBE @ 45 ML/HR TOLERATED. KNOX CATHETER IN PLACE DRAINING CLEAR YELLOW URINE TO GRAVITY. L HAND # 20 G AND R HAND HEP LOCK IN PLACE, CLEAN, AND FLUSHING WELL. L AC # 20 G CLEAN, INTACT, AND FLUSHING WELL WITH NS RUNNING @ 75 ML/HR. TELE MONITOR IN PLACE READING NSR 80. SAFETY PRECAUTIONS IN PLACE: BED IN LOWEST LOCKED POSITION, SIDERAILS UP x 2, AND BRAKES ON. TABLE AND CALL LIGHT WITHIN REACH. WILL ENDORSE TO CHICLE GRINDER FEEDER FOR LOU.
--- NOTE | 2022-02-12 19:31 | NUR ---
RN OPENING NOTES RECEIVED PT IN BED, WITH EYES OPEN. AOx1, OBTUNDED. ON MECHANICAL VENT AND TOLERATING WELL. NO SOB NOTED. NO S/SX OF RESPIRATORY DISTRESS NOTED. TELE MONITOR DETECTS SINUS RHYTHM. IV ACCESS IN L HAND #20G AND L AC #20G RUNNING NS @ 75 ML/HR. SAFETY PRECAUTIONS IN PLACE: BED IN LOWEST, LOCKED POSITION, SIDERAILS UPx2, AND BRAKES ON. TABLE AND CALL LIGHT WITHIN REACH. WILL CONTINUE TO MONITOR.
[2022-02-12 20:00] VITALS: BP 176/62
[2022-02-12] MEDS: TAMSULOSIN 0.4 MG CAP.SR.24H GT SCH (21:08)
[2022-02-12] MEDS: ACETAMINOPHEN 650 MG/20.3 ML UDC GT PRN (21:08)
[2022-02-12] MEDS: LATANOPROST EYE DROP 0.005% 2.5 ML BOTTLE EACHEYE SCH (21:08)
[2022-02-12] MEDS: HYDROGEN PEROXIDE 480 ML BOTTLE TP SCH (21:09)
[2022-02-12] MEDS: hydrALAZINE HCL 10 MG TABLET PO PRN (21:11)
[2022-02-13] VITALS (7 sets, daily range): BP systolic 134–199; BP diastolic 67–101
[2022-02-13] MEDS: ALBUTEROL FS 2.5 MG/0.5 ML VIAL.NEB NEB SCH ×4 (01:23→19:22)
[2022-02-13] MEDS: IPRATROPIUM NEB FS 0.5 MG/2.5 ML AMPUL.NEB NEB SCH ×4 (01:23→19:22)
[2022-02-13] MEDS: hydrALAZINE HCL 10 MG TABLET PO PRN ×3 (04:03→19:53)
--- NOTE | 2022-02-13 04:57 | NUR ---
ADMINISTERED HYDRALAZINE PO FOR HYPERTENSION. WILL CONTINUE TO MONITOR.
[2022-02-13] MEDS: IV NS 0.9% 1,000 ML IV PRN (06:24)
[2022-02-13] MEDS: LEVOTHYROXINE SODIUM 125 MCG TABLET GT SCH (06:24)
[2022-02-13] MEDS: BLOOD SUGAR DIAGNOSTIC 1 EACH STRIP IN SCH ×3 (06:24→21:55)
[2022-02-13 07:20] LABS: BASOPHILS % (AUTO) 0.1 % (0.0-2.0); EOSINOPHILS % (AUTO) 3.3 % (0.0-6.0); HEMATOCRIT 31 % (39-51); HEMOGLOBIN 9.8 g/dL (13.5-17.5); LYMPHOCYTES # (AUTO) 0.8 K/uL (0.8-4.8); LYMPHOCYTES % (AUTO) 8.7 % (20.0-44.0); MEAN CORPUSCULAR HGB CONC 32 g/dl (31.0-36.0); MEAN CORPUSCULAR VOLUME 93 fL (80-96); MONOCYTES # (AUTO) 0.7 K/uL (0.1-1.30); MONOCYTES % (AUTO) 7.9 % (2.0-12.0); PLATELET COUNT (AUTO) 198 K/uL (150-450); WHITE BLOOD COUNT (AUTO) 8.7 K/uL (4.3-11.0)
[2022-02-13 07:24] LABS: CALCIUM, SERUM 9.1 mg/dL (8.5-10.1); CREATININE 1.2 mg/dL (0.6-1.3); MAGNESIUM 1.9 mg/dL (1.8-2.4); PHOSPHORUS 3.1 mg/dL (2.5-4.9); POTASSIUM 3.7 mmol/L (3.5-5.1)
--- NOTE | 2022-02-13 07:42 | NUR ---
SALES COUNSELOR OPENING NOTES: RECEIVED PT IN BED, WITH EYES OPEN. AOx1, OBTUNDED. ON MECHANICAL VENT ORDERED TOLERATING WELL. NO SOB NOTED. NO S/SX OF RESPIRATORY DISTRESS NOTED. TELE MONITOR DETECTS SINUS RHYTHM. IV ACCESS IN L HAND #20G RUNNING NS @ 75 ML/HR. SAFETY PRECAUTIONS IN PLACE: BED IN LOWEST, LOCKED POSITION, SIDERAILS UPx2, AND BRAKES ON. TABLE AND CALL LIGHT WITHIN REACH. WILL CONTINUE TO MONITOR.
[2022-02-13] MEDS: FAMOTIDINE (20 MG) 20 MG TABLET GT SCH (08:46)
[2022-02-13] MEDS: HYDROGEN PEROXIDE 480 ML BOTTLE TP SCH ×2 (08:46→21:57)
[2022-02-13] MEDS: CHOLESTYRAMINE/ASPARTAME 4 G/PKT PACKET GT SCH (08:46)
[2022-02-13] MEDS: APIXABAN 2.5 MG TABLET GT SCH ×2 (08:48→17:24)
--- NOTE | 2022-02-13 10:07 | NUR ---
rn notes: rechecked BP 169/86, HR 102
[2022-02-13] MEDS: LEVETIRACETAM (500MG) 500 MG in IV NS 0.9% 100 ML IV SCH ×2 (11:40→23:17)
[2022-02-13] MEDS: ACETAMINOPHEN 325 MG TABLET PO PRN ×2 (11:41→23:23)
[2022-02-13] MEDS: GUAIFENESIN 300 MG/15 ML UDC GT PRN (11:41)
[2022-02-13] MEDS: DIGOXIN 0.125 MG TABLET GT SCH (13:11)
[2022-02-13] MEDS ORDERED: VANCOMYCIN 1.25 GM in IV D5W 250 ML IV SCH (14:00)
[2022-02-13] MEDS: GLUCERNA 1.2 1,000 ML BOTTLE NG PRN (15:55)
--- NOTE | 2022-02-13 19:00 | NUR ---
RN NOTE RECEIVED PATIENT IN BED, OBTUNDED, IN NO ACUTE DISTRESS AT THIS TIME. ON TRACH TO MECHANICAL VENT WITH SETTINGS PRESCRIBED, SATURATION AT 100%, SR ON THE MONITOR, HR IS 74. NOTED IV SITE AT R HAND 22G, L HAND 20G, AND L WRIST 20G, ALL HUBS PATENT AND FLUSHING WELL, NO S/S OF INFECTION OR INFILTRATION. NOTED GTUBE INTACT POSITIVE PLACEMENT NOTED, 40 ML RESIDUAL, WITH TUBE FEEDING OF GLUCERNA AT 65 ML/HR. KNOX CATHETER CONNECTED TO URINE BAG IN PLACE DRAINING TO A CLEAR, YELLOW OUTPUT. SAFETY MEASURES IMPLEMENTED. PATIENT BED ALARM IS ON. HEAD OF BED ELEVATED. BED IS LOCKED, IN LOWEST POSITION AND SIDE RAILS UP. WILL CONTINUE TO MONITOR AND REASSESS FOR ANY CHANGES.
--- NOTE | 2022-02-13 19:36 | NUR ---
RN CLOSING NOTES: PT IN BED, AWAKE, WITH EYES OPEN. AOx1, OBTUNDED. ON MECHANICAL VENT AND TOLERATING WELL. NO SOB NOTED. NO S/SX OF RESPIRATORY DISTRESS NOTED. TELE MONITOR DETECTS SINUS RHYTHM. IV ACCESS IN R HAND #20G AND R HAND #20 G RUNNING NS @ 75 ML/HR. ALL NEEDS MET. PT KEPT CLEAN AND DRY. SAFETY PRECAUTIONS IN PLACE: BED IN LOWEST, LOCKED POSITION, SIDERAILS UPx2, AND BRAKES ON. TABLE AND CALL LIGHT WITHIN REACH. WILL ENDORSE TO ONCOMING SHIFT FOR LOU.
[2022-02-13] MEDS: ACETAMINOPHEN 650 MG/20.3 ML UDC GT PRN (19:54)
--- NOTE | 2022-02-13 21:50 | NUR ---
RN NOTE BP AND TEMP RECHECKED, RESULTED 171/100, AND 99.6 RESPECTIVELY. WILL CONTINUE TO MONITOR.
[2022-02-13] MEDS: LATANOPROST EYE DROP 0.005% 2.5 ML BOTTLE EACHEYE SCH (21:55)
[2022-02-13] MEDS: TAMSULOSIN 0.4 MG CAP.SR.24H GT SCH (21:55)
--- NOTE | 2022-02-13 22:00 | NUR ---
RN NOTE REPORT GIVEN TO MARYAM HUTTON FOR CONTINUATION OF CARE
[2022-02-13] MEDS: INSULIN GLARGINE, 100 UNIT/ML CARTRIDGE SQ SCH ×2 (22:02→22:05)
[2022-02-14] VITALS (7 sets, daily range): BP systolic 139–175; BP diastolic 70–93
[2022-02-14] MEDS ORDERED: hydrALAZINE HCL IV 20 MG VIAL IV ONE
--- NOTE | 2022-02-14 | NUR ---
RN NOTES COMMUNICATED WITH MAHENDRA ROSALES (LINDSEY,LENKA) REGARIDNG PT'S CONDITION, SBP >160, SECURED PRN ORDER FOR THE FOLLOWING: HYDRALAZINE 10MG IV ONE TIME ORDER AND MORPHINE 1MG Q6H PRN. WILL CARRY OUT NEEDED. MARKETING RESEARCH INTERN MADE AWARE.
[2022-02-14] MEDS ORDERED: MORPHINE SULFATE INJ 2 MG/ML DISP.SYRIN IVP PRN (01:00)
[2022-02-14] MEDS: ALBUTEROL FS 2.5 MG/0.5 ML VIAL.NEB NEB SCH ×4 (02:05→19:56)
[2022-02-14] MEDS: IPRATROPIUM NEB FS 0.5 MG/2.5 ML AMPUL.NEB NEB SCH ×4 (02:05→19:56)
--- NOTE | 2022-02-14 04:00 | NUR ---
RN NOTES PATIENT REMAINED TO BE IN NO SIGNS OF ACUTE RESPIRATORY DISTRESS , VITAL SIGNS STABLE AT THIS TIME. REGULAR TURNING AND REPOSITIONING DONE Q2H AND SUCTIONING RENDERED. WILL CONTINUE TO MONITOR AND REASSESS FOR ANY CHANGES THROUGHOUT THE SHIFT.
[2022-02-14] MEDS: LEVOTHYROXINE SODIUM 125 MCG TABLET GT SCH (05:18)
[2022-02-14] MEDS: BLOOD SUGAR DIAGNOSTIC 1 EACH STRIP IN SCH ×3 (05:27→22:23)
--- NOTE | 2022-02-14 06:32 | NUR ---
RN CLOSING NOTE: PATIENT REMAINS IN ROOM IN NO SIGNS OF RESPIRATORY DISTRESS, PATIENT STILL ON MECH VENT; SETTINGS PRESCRIBED;TOLERATING WELL SATURATING @ >95% SP02. SAFETY MEASURES IMPLEMENTED, BED IN LOWEST POSITION, LOCKED, SIDE RAILS UP, CALL LIGHT WITHIN REACH. ALL NEEDS AND ORDERS ADDRESSED DURING THE SHIFT. IV ACCESS MAINTAINED INTACT, SECURED AND FLUSHING WELL. ALL DUE MEDS GIVEN ORDERED & SCHEDULED. PATIENT KEPT CLEAN AND COMFORTABLE WITHIN THE SHIFT. PATIENT ENDORSED TO INCOMING SHIFT RN WITH STABLE VITAL SIGN AND FOR CONTINUITY OF CARE.
[2022-02-14 06:38] LABS: CALCIUM, SERUM 8.9 mg/dL (8.5-10.1); CREATININE 1.2 mg/dL (0.6-1.3); POTASSIUM 3.8 mmol/L (3.5-5.1)
[2022-02-14 06:50] LABS: EOSINOPHILS % (AUTO) 0.6 % (0.0-6.0); HEMATOCRIT 32 % (39-51); HEMOGLOBIN 10.2 g/dL (13.5-17.5); LYMPHOCYTES # (AUTO) 0.5 K/uL (0.8-4.8); MEAN CORPUSCULAR HGB CONC 32 g/dl (31.0-36.0); MEAN CORPUSCULAR VOLUME 92 fL (80-96); MONOCYTES # (AUTO) 0.7 K/uL (0.1-1.30)
--- NOTE | 2022-02-14 07:15 | NUR ---
RN OPENING NOTE RECEIVED PATIENT IN BED, EYES OPEN, OBTUNDED, ON TRACH TO MECHANICAL VENT WITH SETTINGS PRESCRIBED, SATURATION AT 100%, BREATHING EVEN AND UNLABORED. NO SIGNS OF ANY ACUTE DISTRESS NOTED AT THE TIME. NOTED IV SITE AT R HAND 22G, L HAND 20G, AND L WRIST 20G, PATENT AND FLUSHING WELL, NO S/S OF INFECTION OR INFILTRATION ON SITE. NOTED GTUBE INTACT POSITIVE PLACEMENT NOTED, 25 ML RESIDUAL, WITH TUBE FEEDING OF GLUCERNA AT 65 ML/HR. KNOX CATHETER CONNECTED TO URINE BAG IN PLACE DRAINING TO A CLEAR, YELLOW OUTPUT. SAFETY MEASURES IMPLEMENTED. PATIENT BED ALARM IS ON. HEAD OF BED ELEVATED. BED IS LOCKED, IN LOWEST POSITION AND SIDE RAILS UP. WILL CONTINUE TO MONITOR THROUGHOUT SHIFT AND REASSESS FOR ANY CHANGES.
[2022-02-14 08:36] LABS: BASOPHILS % (AUTO) 0.1 % (0.0-2.0); WHITE BLOOD COUNT (AUTO) 11.6 K/uL (4.3-11.0)
[2022-02-14 08:40] LABS: LYMPHOCYTES % (AUTO) 4.7 % (20.0-44.0); MONOCYTES % (AUTO) 6.3 % (2.0-12.0); NEUTROPHILS # (AUTO) 10.3 K/uL (1.8-8.9); NEUTROPHILS % (AUTO) 88.3 % (43.0-81.0); PLATELET COUNT (AUTO) 226 K/uL (150-450)
[2022-02-14 08:43] LABS: RED BLOOD CELL COUNT(AUTO) 3.49 MIL/uL (4.5-6.0)
[2022-02-14] MEDS: APIXABAN 2.5 MG TABLET GT SCH ×2 (08:46→16:01)
[2022-02-14] MEDS: LEVETIRACETAM SOL (5 ML) 100 MG/ML UDC GT SCH ×2 (08:47→22:22)
[2022-02-14] MEDS: CHOLESTYRAMINE/ASPARTAME 4 G/PKT PACKET GT SCH (08:47)
[2022-02-14] MEDS: FAMOTIDINE (20 MG) 20 MG TABLET GT SCH (08:47)
[2022-02-14] MEDS: HYDROGEN PEROXIDE 480 ML BOTTLE TP SCH ×2 (08:48→22:22)
[2022-02-14] MEDS: DIGOXIN 0.125 MG TABLET GT SCH (12:18)
[2022-02-14] MEDS: ACETAMINOPHEN 325 MG TABLET PO PRN (12:18)
--- NOTE | 2022-02-14 12:50 | NUR ---
RN NOTE REPORT GIVEN TO JANE FOR CONTINUITY OF CARE.
--- NOTE | 2022-02-14 12:51 | NUR ---
RN NOTE RECEIVED PATIENT FOR LOU
[2022-02-14] MEDS: VANCOMYCIN 1 GM in IV D5W 250 ML IV SCH (13:28)
[2022-02-14] MEDS: GLUCERNA 1.2 1,000 ML BOTTLE NG PRN (15:46)
[2022-02-14] MEDS: hydrALAZINE HCL 10 MG TABLET PO PRN (16:28)
--- NOTE | 2022-02-14 16:28 | NUR ---
RN NOTE PATIENTS BLOOD PRESSURE NOTED TO BE 160/90. PRN HYDRALAZINE ADMINISTERED. TEMP NOTED TO NE 99.2 PATINET WAS ADMINISTERED TYLENOL Q6HR AT 1200 COOLING MEASURE IMPLEMENTED.
--- NOTE | 2022-02-14 17:36 | NUR ---
RN NOTE POST COOLING MEASURES PATIENT TEMP HAS DECREASED TO 98.0 F NO FURTHER ACTION
--- NOTE | 2022-02-14 18:27 | NUR ---
RN CLOSING NOTE: PATIENT REMAINS IN ROOM A/O X1 OBTUNDED, NO SIGNS OF RESPIRATORY DISTRESS, PATIENT STILL ON MECH VENT; SETTINGS PRESCRIBED;TOLERATING WELL SATURATING @ >95% SP02. SAFETY MEASURES IMPLEMENTED, BED IN LOWEST POSITION, LOCKED, SIDE RAILS UP, CALL LIGHT WITHIN REACH. ALL NEEDS AND ORDERS ADDRESSED DURING THE SHIFT. IV ACCESS MAINTAINED INTACT, SECURED AND FLUSHING WELL. ALL DUE MEDS GIVEN ORDERED & SCHEDULED. PATIENT KEPT CLEAN AND COMFORTABLE WITHIN THE SHIFT. PATIENT ENDORSED TO INCOMING SHIFT RN FOR CONTINUITY OF CARE.
[2022-02-14] MEDS: LATANOPROST EYE DROP 0.005% 2.5 ML BOTTLE EACHEYE SCH (22:22)
[2022-02-14] MEDS: TAMSULOSIN 0.4 MG CAP.SR.24H GT SCH (22:22)
[2022-02-14] MEDS: INSULIN GLARGINE, 100 UNIT/ML CARTRIDGE SQ SCH (22:24)
[2022-02-14] MEDS: ACETAMINOPHEN 650 MG/20.3 ML UDC GT PRN (22:25)
[2022-02-15] VITALS: BP 157/80
[2022-02-15] MEDS: IPRATROPIUM NEB FS 0.5 MG/2.5 ML AMPUL.NEB NEB SCH ×4 (01:38→19:52)
[2022-02-15] MEDS: ALBUTEROL FS 2.5 MG/0.5 ML VIAL.NEB NEB SCH ×4 (01:38→19:52)
[2022-02-15 04:00] VITALS: BP 169/80
[2022-02-15] MEDS: hydrALAZINE HCL 10 MG TABLET PO PRN (04:16)
--- NOTE | 2022-02-15 04:16 | NUR ---
RN NOTE PATIENT NOTED WITH ELEVATED BP, HYDRALAZINE PRN GIVEN ORDERED. WILL CONTINUE TO MONITOR. TEMP AT THIS TIME 99.5. CONTINUE COOLING MEASURES.
[2022-02-15] MEDS: LEVOTHYROXINE SODIUM 125 MCG TABLET GT SCH (05:11)
--- NOTE | 2022-02-15 05:12 | NUR ---
RN NOTE PATIENT NOTED WITH X1 EMESIS, (FEEDING). NO RESIDUAL NOTED ON G-TUBE SITE. ADMINISTERED ZOFRAN PRN ORDERED. KEPT CLEAN AND DRY.
[2022-02-15] MEDS: BLOOD SUGAR DIAGNOSTIC 1 EACH STRIP IN SCH ×3 (05:24→21:51)
--- NOTE | 2022-02-15 06:32 | NUR ---
RN NOTE PATIENT NOTED WITH ELEVATED TEMP 100.5. ADMINISTERED TYLENOL PRN. COOLING MEASURES PROVIDED. Addendum: 02/15/22 at 0635 by JEAN URIBE RN WRONG TIME DOCUMENTED. NOTE FOR 2225 02/14/22
[2022-02-15 07:11] LABS: BASOPHILS % (AUTO) 0.1 % (0.0-2.0); EOSINOPHILS % (AUTO) 2.2 % (0.0-6.0); HEMATOCRIT 30 % (39-51); HEMOGLOBIN 9.7 g/dL (13.5-17.5); LYMPHOCYTES # (AUTO) 0.7 K/uL (0.8-4.8); LYMPHOCYTES % (AUTO) 8.9 % (20.0-44.0); MEAN CORPUSCULAR HGB CONC 33 g/dl (31.0-36.0); MEAN CORPUSCULAR VOLUME 93 fL (80-96); MONOCYTES # (AUTO) 0.5 K/uL (0.1-1.30); MONOCYTES % (AUTO) 6.1 % (2.0-12.0); NEUTROPHILS # (AUTO) 6.9 K/uL (1.8-8.9); NEUTROPHILS % (AUTO) 82.7 % (43.0-81.0); PLATELET COUNT (AUTO) 201 K/uL (150-450); RED BLOOD CELL COUNT(AUTO) 3.19 MIL/uL (4.5-6.0); WHITE BLOOD COUNT (AUTO) 8.3 K/uL (4.3-11.0)
[2022-02-15 07:15] LABS: CALCIUM, SERUM 8.8 mg/dL (8.5-10.1); CREATININE 1.3 mg/dL (0.6-1.3); POTASSIUM 3.5 mmol/L (3.5-5.1)
--- NOTE | 2022-02-15 07:20 | NUR ---
RN OPENING NOTES: RECEIVED PT IN BED, WITH EYES OPEN. AOx1, OBTUNDED. ON MECHANICAL VENT ORDERED TOLERATING WELL. NO SOB NOTED. NO S/SX OF RESPIRATORY DISTRESS NOTED. TELE MONITOR DETECTS SINUS RHYTHM. IV ACCESS IN R HAND #20G . SAFETY PRECAUTIONS IN PLACE: BED IN LOWEST, LOCKED POSITION, SIDERAILS UPx2, AND BRAKES ON. CALL LIGHT WITHIN REACH. WILL CONTINUE TO MONITOR.
[2022-02-15 08:00] VITALS: BP 131/79
[2022-02-15] MEDS: CHOLESTYRAMINE/ASPARTAME 4 G/PKT PACKET GT SCH (08:35)
[2022-02-15] MEDS: LEVETIRACETAM SOL (5 ML) 100 MG/ML UDC GT SCH ×2 (08:35→22:03)
[2022-02-15] MEDS: APIXABAN 2.5 MG TABLET GT SCH ×2 (08:37→17:25)
[2022-02-15] MEDS: FAMOTIDINE (20 MG) 20 MG TABLET GT SCH (08:37)
[2022-02-15] MEDS: HYDROGEN PEROXIDE 480 ML BOTTLE TP SCH ×2 (08:39→22:05)
[2022-02-15] MEDS: SIROLIMUS GT SCH (10:44)
[2022-02-15 12:00] VITALS: BP 108/67
[2022-02-15] MEDS: DIGOXIN 0.125 MG TABLET GT SCH (12:57)
[2022-02-15] MEDS: VANCOMYCIN 1 GM in IV D5W 250 ML IV SCH (13:07)
[2022-02-15 16:00] VITALS: BP 143/79
[2022-02-15] MEDS: ACETAMINOPHEN 325 MG TABLET PO PRN (17:25)
[2022-02-15] MEDS: GLUCERNA 1.2 1,000 ML BOTTLE NG PRN (18:46)
--- NOTE | 2022-02-15 19:14 | NUR ---
RN notes: PATIENT REMAINS IN ROOM A/O X1 OBTUNDED, NO SIGNS OF RESPIRATORY DISTRESS, PATIENT STILL ON MECH VENT; SETTINGS PRESCRIBED;TOLERATING WELL SATURATING 97% SP02. SAFETY MEASURES IMPLEMENTED, BED IN LOWEST POSITION, LOCKED, SIDE RAILS UP, CALL LIGHT WITHIN REACH. ALL NEEDS AND ORDERS ADDRESSED DURING THE SHIFT. IV ACCESS MAINTAINED INTACT, SECURED AND FLUSHING WELL. ALL DUE MEDS GIVEN ORDERED & SCHEDULED. PATIENT KEPT CLEAN AND COMFORTABLE WITHIN THE SHIFT. PATIENT ENDORSED TO INCOMING SHIFT RN FOR CONTINUITY OF CARE.
[2022-02-15 20:00] VITALS: BP 111/58
--- NOTE | 2022-02-15 20:43 | NUR ---
fur remodeler Opening Note Pt received laying in bed obtunded with eyes open. Pt attached to vent with trach; tolerating vent settings well, no s/s of resp distress or discomfort, non-labored breathing. Trach dressing C/D/I. Pt receiving GTF glucerna at 60 ml/hr; GT dressing C/D/I; no residual noted. Pt attached to tele monitor; SR, VSS. Jones patent and intact, draining clear and yellow urine. IV right hand #20 G intact and patent. Bed in lowest position, side rails up x3, call light within reach. Will continue to monitor throughout the night.
[2022-02-15] MEDS: TAMSULOSIN 0.4 MG CAP.SR.24H GT SCH (22:03)
[2022-02-15] MEDS: INSULIN GLARGINE, 100 UNIT/ML CARTRIDGE SQ SCH (22:04)
[2022-02-15] MEDS: LATANOPROST EYE DROP 0.005% 2.5 ML BOTTLE EACHEYE SCH (22:04)
[2022-02-16] VITALS: BP 122/54
[2022-02-16] MEDS: ALBUTEROL FS 2.5 MG/0.5 ML VIAL.NEB NEB SCH ×4 (01:20→20:02)
[2022-02-16] MEDS: IPRATROPIUM NEB FS 0.5 MG/2.5 ML AMPUL.NEB NEB SCH ×4 (01:20→20:02)
[2022-02-16 04:00] VITALS: BP 123/50
[2022-02-16] MEDS: BLOOD SUGAR DIAGNOSTIC 1 EACH STRIP IN SCH ×3 (05:07→21:24)
[2022-02-16] MEDS: LEVOTHYROXINE SODIUM 125 MCG TABLET GT SCH (05:15)
[2022-02-16 06:53] LABS: BASOPHILS % (AUTO) 0.3 % (0.0-2.0); EOSINOPHILS % (AUTO) 2.5 % (0.0-6.0); HEMATOCRIT 27 % (39-51); HEMOGLOBIN 8.8 g/dL (13.5-17.5); LYMPHOCYTES # (AUTO) 0.8 K/uL (0.8-4.8); LYMPHOCYTES % (AUTO) 10.9 % (20.0-44.0); MEAN CORPUSCULAR HGB CONC 32 g/dl (31.0-36.0); MEAN CORPUSCULAR VOLUME 93 fL (80-96); MONOCYTES # (AUTO) 0.6 K/uL (0.1-1.30); MONOCYTES % (AUTO) 7.7 % (2.0-12.0); NEUTROPHILS # (AUTO) 5.7 K/uL (1.8-8.9); NEUTROPHILS % (AUTO) 78.6 % (43.0-81.0); PLATELET COUNT (AUTO) 173 K/uL (150-450); RED BLOOD CELL COUNT(AUTO) 2.93 MIL/uL (4.5-6.0); WHITE BLOOD COUNT (AUTO) 7.2 K/uL (4.3-11.0)
--- NOTE | 2022-02-16 06:53 | NUR ---
resource analyst Closing Notes Pt in bed, non-verbal, obtunded, eyes open; closes eyes occasionally. Pt continues with current vent settings and is tolerating well; no s/s of resp distress and discomfort, non-labored breathing; O2sat 100% throughout the night. Pt attached to external monitor; SR, VSS. ARELIS midline 18G inserted by Komal at 2230 on 02/15/22; midline intact and patent; KVO with NS running at 10 ml/hr. All other IVs patent and intact. GT dressing C/D/I. Bed in lowest position, call light within reach, side rails up x3. Will endorse to dayshift nurse to continue care.
[2022-02-16 07:25] LABS: IRON, SERUM 31 ug/dl (50-175); TOTAL IRON BINDING CAPACITY 146 ug/dl (250-450)
[2022-02-16 08:00] VITALS: BP 112/52
[2022-02-16 08:06] LABS: FERRITIN 1437 ng/mL (8-388)
[2022-02-16] MEDS: FAMOTIDINE (20 MG) 20 MG TABLET GT SCH (08:35)
[2022-02-16] MEDS: HYDROGEN PEROXIDE 480 ML BOTTLE TP SCH ×2 (08:36→21:36)
[2022-02-16] MEDS: LEVETIRACETAM SOL (5 ML) 100 MG/ML UDC GT SCH ×2 (08:36→20:57)
[2022-02-16] MEDS: SIROLIMUS GT SCH (08:37)
[2022-02-16] MEDS: APIXABAN 2.5 MG TABLET GT SCH ×2 (08:38→17:02)
[2022-02-16] MEDS: CHOLESTYRAMINE/ASPARTAME 4 G/PKT PACKET GT SCH (08:39)
--- NOTE | 2022-02-16 09:28 | NUR ---
RN OPENING NOTES RECEIVED PT IN BED, WITH EYES OPEN. AOx1, OBTUNDED. ON MECHANICAL VENT ORDERED TOLERATING WELL. NO SOB NOTED. NO S/SX OF RESPIRATORY DISTRESS NOTED. TELE MONITOR DETECTS SINUS RHYTHM. IV ACCESS IN R HAND #20G, L HAND 20 G, ARELIS MIDLINE 18G. SAFETY PRECAUTIONS IN PLACE: BED IN LOWEST, LOCKED POSITION, SIDERAILS UPx2, AND BRAKES ON. CALL LIGHT WITHIN REACH. WILL CONTINUE TO MONITOR THROUGHOUT SHIFT.
[2022-02-16 11:39] LABS: CALCIUM, SERUM 8.2 mg/dL (8.5-10.1); CREATININE 1.5 mg/dL (0.6-1.3); GLUCOSE 118 mg/dL (74-106); MAGNESIUM 2.4 mg/dL (1.8-2.4); PHOSPHORUS 4.5 mg/dL (2.5-4.9); UREA NITROGEN, BLOOD 25 mg/dL (7-18)
[2022-02-16 11:47] LABS: CARBON DIOXIDE 24 mmol/L (21-32); CHLORIDE 100 mmol/L (98-107); POTASSIUM 3.8 mmol/L (3.5-5.1); SODIUM SERUM 138 mmol/L (136-145)
[2022-02-16 12:00] VITALS: BP 96/49
[2022-02-16] MEDS: DIGOXIN 0.125 MG TABLET GT SCH (12:08)
[2022-02-16] MEDS: IV NS 0.9% 1,000 ML IV SCH (12:16)
[2022-02-16] MEDS: VANCOMYCIN 1 GM in IV D5W 250 ML IV SCH (13:01)
--- NOTE | 2022-02-16 15:34 | NUR ---
RN NOTES VANCO TROUGH IS 19. WILL START VANCOMYCIN IV NOW 1534.
[2022-02-16 16:00] VITALS: BP 110/58
--- NOTE | 2022-02-16 19:25 | NUR ---
RN CLOSING NOTES RECEIVED PT IN BED, WITH EYES OPEN. AOx1, OBTUNDED. ON MECHANICAL VENT ORDERED TOLERATING WELL. NO SOB NOTED. NO S/SX OF RESPIRATORY DISTRESS NOTED. TELE MONITOR DETECTS SINUS RHYTHM. IV ACCESS IN R HAND #20G, L HAND 20 G, ARELIS MIDLINE 18G. SAFETY PRECAUTIONS IN PLACE: BED IN LOWEST, LOCKED POSITION, SIDERAILS UPx2, AND BRAKES ON. CALL LIGHT WITHIN REACH. PT ENDORSED TO KIER HAND NURSE FOR LOU.
[2022-02-16 20:00] VITALS: BP 134/70
[2022-02-16] MEDS: TAMSULOSIN 0.4 MG CAP.SR.24H GT SCH (21:28)
[2022-02-16] MEDS: INSULIN GLARGINE, 100 UNIT/ML CARTRIDGE SQ SCH (21:30)
[2022-02-16] MEDS: LATANOPROST EYE DROP 0.005% 2.5 ML BOTTLE EACHEYE SCH (21:35)
[2022-02-17] VITALS: BP 112/76
[2022-02-17] MEDS: IV NS 0.9% 1,000 ML IV SCH (00:16)
[2022-02-17] MEDS: ALBUTEROL FS 2.5 MG/0.5 ML VIAL.NEB NEB SCH ×4 (01:01→19:54)
[2022-02-17] MEDS: IPRATROPIUM NEB FS 0.5 MG/2.5 ML AMPUL.NEB NEB SCH ×4 (01:01→19:54)
[2022-02-17 04:00] VITALS: BP 127/60
[2022-02-17] MEDS: ACETAMINOPHEN 325 MG TABLET PO PRN (05:03)
[2022-02-17] MEDS: BLOOD SUGAR DIAGNOSTIC 1 EACH STRIP IN SCH ×3 (05:12→20:23)
[2022-02-17] MEDS: LEVOTHYROXINE SODIUM 125 MCG TABLET GT SCH (06:11)
--- NOTE | 2022-02-17 06:50 | NUR ---
oracle manager Closing Note Pt in bed obtunded with eyes open, slept intermittently throughout the night. Pt non-verbal and withdraws from localized pain. Pt remains on current vent settings and is tolerated well; no s/s of resp distress, no SOB noted, O2sat 100%. Pt attached to monitor and was SR throughout the night with HR in mid 60s. GT dressing C/D/I; no residual noted, no vomiting noted, and is tolerating feeding well. No seizures noted during shift. ARELIS midline intact and patent. Pt noted to have bleeding in scrotum, pic placed in chart, and wound consult ordered. Bed in lowest position, call light within reach, side rails up x3. Will endorse to dayshift nurse to continue care.
[2022-02-17 07:18] LABS: BASOPHILS % (AUTO) 0.2 % (0.0-2.0); EOSINOPHILS % (AUTO) 2.5 % (0.0-6.0); HEMATOCRIT 27 % (39-51); HEMOGLOBIN 8.7 g/dL (13.5-17.5); LYMPHOCYTES % (AUTO) 14.6 % (20.0-44.0); MEAN CORPUSCULAR HGB CONC 32 g/dl (31.0-36.0); MEAN CORPUSCULAR VOLUME 94 fL (80-96); MONOCYTES # (AUTO) 0.5 K/uL (0.1-1.30); MONOCYTES % (AUTO) 7.6 % (2.0-12.0); NEUTROPHILS # (AUTO) 5.2 K/uL (1.8-8.9); NEUTROPHILS % (AUTO) 75.1 % (43.0-81.0); PLATELET COUNT (AUTO) 178 K/uL (150-450); WHITE BLOOD COUNT (AUTO) 6.9 K/uL (4.3-11.0)
[2022-02-17 07:56] LABS: CALCIUM, SERUM 8.6 mg/dL (8.5-10.1); CARBON DIOXIDE 29 mmol/L (21-32); CHLORIDE 102 mmol/L (98-107); CREATININE 1.4 mg/dL (0.6-1.3); GLUCOSE 104 mg/dL (74-106); MAGNESIUM 2.3 mg/dL (1.8-2.4); PHOSPHORUS 3.4 mg/dL (2.5-4.9); POTASSIUM 3.7 mmol/L (3.5-5.1); SODIUM SERUM 138 mmol/L (136-145); UREA NITROGEN, BLOOD 24 mg/dL (7-18)
[2022-02-17 08:00] VITALS: BP 150/80
[2022-02-17] MEDS: LEVETIRACETAM SOL (5 ML) 100 MG/ML UDC GT SCH ×2 (08:43→20:13)
[2022-02-17] MEDS: FAMOTIDINE (20 MG) 20 MG TABLET GT SCH (08:43)
[2022-02-17] MEDS: CHOLESTYRAMINE/ASPARTAME 4 G/PKT PACKET GT SCH (08:43)
[2022-02-17] MEDS: APIXABAN 2.5 MG TABLET GT SCH ×2 (08:45→16:12)
[2022-02-17] MEDS: SIROLIMUS GT SCH (08:46)
[2022-02-17] MEDS: HYDROGEN PEROXIDE 480 ML BOTTLE TP SCH ×2 (09:03→20:15)
[2022-02-17] MEDS ORDERED: IV NS 0.9% 1,000 ML IV PRN ×2 (09:32→13:29)
[2022-02-17] MEDS: GLUCERNA 1.2 1,000 ML BOTTLE NG PRN (10:59)
--- NOTE | 2022-02-17 11:21 | NUR ---
WOUND CARE CONSULT: PT FOLLOWED PREVIOUSLY BY SURGICAL TEAM FOR WOUND CARE. DR GONZALES NOTIFIED OF ADMISSION. RECOMMENDATIONS MADE FOR SKIN PROTECTION. PT NOTED TO H AVE SACRAL SCARRING AND SCROTAL INCONTINENCE ASSOCIATED SKIN DAMAGE, PRESENT ON ADMISSION. PT STOOLING FREQUENTLY. PT IS ON FIRST STEP LOW AIRLOSS MATTRESS. MD IN AGREEMENT WITH PLAN OF CARE.
[2022-02-17 12:00] VITALS: BP 102/56
[2022-02-17] MEDS: DIGOXIN 0.125 MG TABLET GT SCH (12:35)
--- NOTE | 2022-02-17 13:03 | NUR ---
RN NOTE URINE SPECIMEN COLLECTED FOR U/A C&S.
[2022-02-17 13:33] LABS: BILIRUBIN,URINE NEGATIVE (NEGATIVE); COLOR,URINE YELLOW (YELLOW); LEUKOCYTE ESTERASE ,URINE NEGATIVE (NEGATIVE); NITRITE, URINE NEGATIVE (NEGATIVE); PROTEIN,URINE 100 mg/dl (NEGATIVE); UGLUCOSE NEGATIVE (NEGATIVE); UROBILINOGEN,URINE 0.2 EU/dL (0.2)
[2022-02-17 13:56] LABS: BACTERIA,URINE Rare /HPF (None Seen); SQUAMOUS EPITHELIAL CELL,UR Few /HPF (None Seen); WBC,URINE 0-2 /HPF (0-3)
[2022-02-17 16:00] VITALS: BP 149/81
--- NOTE | 2022-02-17 17:30 | NUR ---
RN NOTE PT IN BED, NOT IN DISTRESS. TRACH P8 IN PLACE, WITH VENT SETTINGS TOLERATED WELL. PT REMAINS OBTUNDED. ON TELE MONITOR SHOWS CONTROLLED AFIB WITH HR OF 75. KNOX IN PLACE AND DRAINING WELL. ARELIS MIDLINE IN PLACE WITH IVF NS RUNNING @85. WOUND CARE DONE ON SCROTUM.AND SACRAL REDNESS. DUE MEDS GIVEN,GT FEEDING GLUCERNA @60CC.HR, HOB ELEVATED, ASPIRATION PREC MAINTAINED. MORNING CARE DONE. SAFETY MEASURES FOLLOWED. WILL CONTINUE TO MONITOR.
--- NOTE | 2022-02-17 19:30 | NUR ---
RN OPENING NOTES RECEIVED PT IN BED, OBTUNDED WITH EYES OPEN, A/O X 1. ON MECHANICAL VENT ORDERED TOLERATING WELL. NO SOB NOTED. NO S/SX OF RESPIRATORY DISTRESS NOTED. TELE MONITOR DETECTS AFIB CONTROLLED. IV ACCESS IN R HAND #20G, L HAND 20 G, AND ARELIS MIDLINE 18G. INTACT AND PATENT. RUNNING NS AT 85 CC/JHR. ON GTUBE FEEDING, RUNNING GLUCERNA AT 60 CC/HR. FLUSHES WELL. PT HAS KNOX DRAINING YELLOW COLORED URINE BY GRAVITY. ALL SAFETY PRECAUTIONS IN PLACE: BED IN LOWEST, LOCKED POSITION, SIDE RAILS UPx2, AND BRAKES ON. CALL LIGHT WITHIN REACH. WILL CONTINUE TO MONITOR.
[2022-02-17 20:00] VITALS: BP 150/77
[2022-02-17] MEDS: INSULIN GLARGINE, 100 UNIT/ML CARTRIDGE SQ SCH (22:00)
[2022-02-17] MEDS: TAMSULOSIN 0.4 MG CAP.SR.24H GT SCH (22:18)
[2022-02-17] MEDS: LATANOPROST EYE DROP 0.005% 2.5 ML BOTTLE EACHEYE SCH (22:19)
--- NOTE | 2022-02-17 22:44 | NUR ---
RN NOTE PT BS 83. WITHHELD LANTUS. CHARGE NURSE INFORMED AND AWARE.
[2022-02-18] VITALS: BP 167/97
[2022-02-18] MEDS: hydrALAZINE HCL 10 MG TABLET PO PRN (00:40)
[2022-02-18] MEDS: ALBUTEROL FS 2.5 MG/0.5 ML VIAL.NEB NEB SCH ×4 (01:17→19:46)
[2022-02-18] MEDS: IPRATROPIUM NEB FS 0.5 MG/2.5 ML AMPUL.NEB NEB SCH ×4 (01:17→19:46)
[2022-02-18 04:00] VITALS: BP 142/75
[2022-02-18] MEDS: BLOOD SUGAR DIAGNOSTIC 1 EACH STRIP IN SCH ×3 (04:17→21:16)
[2022-02-18] MEDS: LEVOTHYROXINE SODIUM 125 MCG TABLET GT SCH (05:09)
--- NOTE | 2022-02-18 06:50 | NUR ---
director learning and development Closing Note Pt in bed obtunded with eyes open, slept intermittently throughout the night. Pt non-verbal and withdraws from localized pain. Pt remains on current vent settings and is tolerated well; no s/s of respiratory distress, no SOB noted, sating at 100%. Pt attached to monitor and shows A flutter with HR in the 80s. GT running Glucerna at 60 cc/hr, no vomiting noted, and is tolerating the feeding well. No seizures noted during shift. ARELIS midline intact and patent. No signs of infiltration noted. on FC draining by gravity. Pt noted to have bleeding in scrotum, cleaned with NS, pat dried. Z guard applied liberally. Kept pt clean and dry. All due meds given. All needs attended to. Safety measures implemented. Bed in lowest position, call light within reach, side rails up x3. Will endorse to AM shift nurse to continue care.
[2022-02-18 06:59] LABS: BASOPHILS % (AUTO) 0.2 % (0.0-2.0); EOSINOPHILS % (AUTO) 2.4 % (0.0-6.0); HEMATOCRIT 27 % (39-51); HEMOGLOBIN 8.6 g/dL (13.5-17.5); LYMPHOCYTES # (AUTO) 0.9 K/uL (0.8-4.8); LYMPHOCYTES % (AUTO) 11.7 % (20.0-44.0); MEAN CORPUSCULAR HGB CONC 32 g/dl (31.0-36.0); MEAN CORPUSCULAR VOLUME 94 fL (80-96); MONOCYTES # (AUTO) 0.6 K/uL (0.1-1.30); MONOCYTES % (AUTO) 7.6 % (2.0-12.0); NEUTROPHILS # (AUTO) 5.8 K/uL (1.8-8.9); NEUTROPHILS % (AUTO) 78.1 % (43.0-81.0); PLATELET COUNT (AUTO) 172 K/uL (150-450); RED BLOOD CELL COUNT(AUTO) 2.85 MIL/uL (4.5-6.0); WHITE BLOOD COUNT (AUTO) 7.4 K/uL (4.3-11.0)
[2022-02-18 07:18] LABS: CALCIUM, SERUM 8.4 mg/dL (8.5-10.1); CREATININE 1.2 mg/dL (0.6-1.3); POTASSIUM 3.6 mmol/L (3.5-5.1)
--- NOTE | 2022-02-18 07:24 | NUR ---
english drawer Note Pt in bed with trach to vent setting with eyes open, Pt remains on current vent settings and is tolerated well; no s/s of respiratory distress, no SOB noted, sating at 98%. Pt attached to monitor and shows A flutter with HR in the 80s. GT running Glucerna at 60 cc/hr, no vomiting noted, and is tolerating the feeding well. No seizures noted during shift. ARELIS midline intact and patent. No signs of infiltration noted. on FC draining by gravity. . Kept pt clean and dry. All needs attended to. Safety measures implemented. Bed in lowest
[2022-02-18 08:00] VITALS: BP 149/80
[2022-02-18] MEDS: CHOLESTYRAMINE/ASPARTAME 4 G/PKT PACKET GT SCH (08:52)
[2022-02-18] MEDS: LEVETIRACETAM SOL (5 ML) 100 MG/ML UDC GT SCH ×2 (08:52→20:15)
[2022-02-18] MEDS: APIXABAN 2.5 MG TABLET GT SCH ×2 (08:53→16:08)
[2022-02-18] MEDS: SIROLIMUS GT SCH (08:59)
[2022-02-18] MEDS: HYDROGEN PEROXIDE 480 ML BOTTLE TP SCH ×2 (09:00→21:16)
[2022-02-18] MEDS: FAMOTIDINE (20 MG) 20 MG TABLET GT SCH (09:12)
[2022-02-18] MEDS: GLUCERNA 1.2 1,000 ML BOTTLE NG PRN (09:39)
--- NOTE | 2022-02-18 10:34 | NUR ---
MOTOR VEHICLE LECTURER NOTE SEEN BY JOSE FRANCISCO PAULSON UPDATED PATIENT CONDITION, WILL F\U
[2022-02-18 12:00] VITALS: BP 133/82
[2022-02-18] MEDS: DIGOXIN 0.125 MG TABLET GT SCH (12:46)
--- NOTE | 2022-02-18 13:54 | NUR ---
telescope operator note rounds made, all needs attended, turn reposition done ,keep clean dry , will cont to monitor closely
[2022-02-18] MEDS ORDERED: EPOETIN ALFA-EPBX 20,000 UNIT/ML VIAL SQ ONE (15:00)
[2022-02-18 16:00] VITALS: BP 134/66
--- NOTE | 2022-02-18 16:00 | NUR ---
telephone cleaner note suction done , trach care done , keep clean dry , turn reposition q2 hour ,will cont to monitor
--- NOTE | 2022-02-18 19:03 | NUR ---
telemarketing sales representative note patient in bed ,awake with trach to vent setting as ordered with g tube feeding as ordered no residual noted, bed in lowest and locked position , will cont to monitor closely
--- NOTE | 2022-02-18 19:21 | NUR ---
ryan guerra note per nitin arellano ok to ursula petty , order carried out Addendum: 02/18/22 at 1921 by ZHEN DINH RN nitin owens
[2022-02-18 20:00] VITALS: BP 133/80
--- NOTE | 2022-02-18 20:00 | NUR ---
telephone coin box collector Note Received Pt in bed with eye open .nonverbal ,Remains on current vent settings as ordered well tolerated by pts. no s/s of respiratory distress, no SOB noted, sating 100%. Pt attached to monitor and shows Afib, flutter with HR in the 60s. GT running Glucerna at 60 cc/hr, no vomiting noted, feeding well tolerated no residual noted ,hob elevated at all times . No seizures activity noted during shift. ARELIS midline intact and patent.Right hand g#22 left hand g#20 intact and patent . No signs of infiltration noted. on FC draining by gravity. all due meds given as ordered no ase noted .turned and reposition q 2 hrs , suction secretion q 2 hrs and prn, Kept pt clean and dry. All needs attended to. Safety measures implemented. Bed in [facility] will continue to monitor pts.
[2022-02-18] MEDS: GUAIFENESIN 300 MG/15 ML UDC GT PRN (20:15)
--- NOTE | 2022-02-18 21:00 | NUR ---
teletype operator notes Blood sugar at 9pm is 102 lantus 30 units given at 10pm as order pts on gt feeding will continue to monitor pts.
[2022-02-18] MEDS: LATANOPROST EYE DROP 0.005% 2.5 ML BOTTLE EACHEYE SCH (21:15)
[2022-02-18] MEDS: TAMSULOSIN 0.4 MG CAP.SR.24H GT SCH (21:18)
[2022-02-18] MEDS: INSULIN GLARGINE, 100 UNIT/ML CARTRIDGE SQ SCH (21:20)
[2022-02-19] VITALS: BP 160/75
[2022-02-19] MEDS: ACETAMINOPHEN 325 MG TABLET PO PRN ×2 (00:09→20:18)
[2022-02-19] MEDS: IPRATROPIUM NEB FS 0.5 MG/2.5 ML AMPUL.NEB NEB SCH ×4 (01:11→19:56)
[2022-02-19] MEDS: ALBUTEROL FS 2.5 MG/0.5 ML VIAL.NEB NEB SCH ×4 (01:11→19:56)
[2022-02-19 04:00] VITALS: BP 161/96
[2022-02-19] MEDS: BLOOD SUGAR DIAGNOSTIC 1 EACH STRIP IN SCH ×3 (04:49→20:59)
--- NOTE | 2022-02-19 04:51 | NUR ---
television audio engineer notes Blood sugar for 5am is 77 mg/dl no insulin coverage is given .pts on gt feeding.will continue to monitor.
[2022-02-19] MEDS: GLUCERNA 1.2 1,000 ML BOTTLE NG PRN (05:36)
[2022-02-19] MEDS: hydrALAZINE HCL 10 MG TABLET PO PRN ×2 (06:38→23:30)
[2022-02-19] MEDS: LEVOTHYROXINE SODIUM 125 MCG TABLET GT SCH (06:38)
--- NOTE | 2022-02-19 06:46 | NUR ---
television operator notes Blood pressure at 5am is 167/90 hydralazine given prn as order . will endorse pts to rn day shift for continuity of care ,pts remains on vent tolerating well .
[2022-02-19 06:57] LABS: CALCIUM, SERUM 8.2 mg/dL (8.5-10.1); CREATININE 1.3 mg/dL (0.6-1.3); POTASSIUM 3.5 mmol/L (3.5-5.1)
--- NOTE | 2022-02-19 07:35 | NUR ---
RN OPENING NOTES RECEIVED PT IN BED, OBTUNDED WITH EYES OPEN, A/O X 1. ON MECHANICAL VENT TOLERATING CURRENT SETTINGS WELL. NO S/SX OF RESPIRATORY DISTRESS NOTED. TELE MONITOR SHOWS A-FIB CONTROLLED. R HAND G#20, L HAND 20 G, AND ARELIS MIDLINE 18G INTACT AND PATENT. G-TUBE IN PLACE AND PATENT RUNNING GLUCERNA AT 65 ML/HR. MINIMAL RESIDUAL NOTED. KNOX CATH IN PLACE DRAINING YELLOW URINE. ALL SAFETY PRECAUTIONS IN PLACE: BED IN LOWEST AND LOCKED POSITION, SIDE RAILS UPX2, CALL LIGHT WITHIN REACH. WILL CONTINUE TO MONITOR.
[2022-02-19 08:00] VITALS: BP 122/54
[2022-02-19] MEDS: LEVETIRACETAM SOL (5 ML) 100 MG/ML UDC GT SCH ×2 (08:57→21:04)
[2022-02-19] MEDS: FAMOTIDINE (20 MG) 20 MG TABLET GT SCH (08:58)
[2022-02-19] MEDS: CHOLESTYRAMINE/ASPARTAME 4 G/PKT PACKET GT SCH (08:58)
[2022-02-19] MEDS: HYDROGEN PEROXIDE 480 ML BOTTLE TP SCH ×2 (08:58→21:07)
[2022-02-19] MEDS: APIXABAN 2.5 MG TABLET GT SCH ×2 (08:59→17:31)
[2022-02-19] MEDS: SIROLIMUS GT SCH (09:03)
[2022-02-19 12:00] VITALS: BP 120/64
[2022-02-19] MEDS: DIGOXIN 0.125 MG TABLET GT SCH (13:00)
[2022-02-19 16:00] VITALS: BP 144/49
--- NOTE | 2022-02-19 18:35 | NUR ---
RN CLOSING NOTES PATIENT REMAINED IN STABLE CONDITION THROUGH OUT SHIFT. TOLERATING CURRENT VENT SETTINGS WELL. TELE MONITOR READS CONTROLLED A-FIB WITH HR 50-70'S. VSS. AFEBRILE THROUGH SHIFT WITH NO S/SX OF DISTRESS NOTED. KNOX CATH IN PLACE DRAINING YELLOW URINE. ALL MEDS GIVEN ORDERED. SAFETY AND ASPIRATION PRECAUTIONS MAINTAINED. WILL ENDORSE TO THE MEDICAL REIMBURSEMENT SPECIALIST NURSE FOR LOU
--- NOTE | 2022-02-19 19:50 | NUR ---
RN NOTE RECEIVED PATIENT IN BED, NON-VERBAL. TRACH WITH MECHANICAL VENT. PORTEX 8, VENT SETTINGS ARE FOLLOWS, AC 12, VT 500, FIO2 30%, PEEP 10. TOLERATING VENT SETTINGS, OXYGEN SATURATION OF 100 PERCENT. HR OF 75 BPM. PATIENT SUCTIONED VIA TRACH, SMALL AMOUNT OF THICK WHITE SECRETIONS. TRACH SITE CLEAN AND DRY. ORAL CARE PROVIDED. SKIN WARM AND DRY. NOTED WITH LEFT HANF 20G AND RIGHT UPPER ARM MID LINE, NO IVF INFUSING. NOTED WITH G-TUBE, INFUSING CLUCERNA AT 65 CC/HR. NO RESIDUAL, HOB ELEVATED 40 DEGREES. KNOX CATHETER INTACT, NO HEMATURIA NOTED, DRAINING YELLOW URINE. NOTED WITH BILATERAL ARM ABNORMAL EXTENSION. BED ASSISTED WITH TURNING AND REPOSITIONING, BED LOW, IN LOCKED POSITION, CALL LIGHT WITHIN REACH, WILL CONTINUE TO MONITOR.
[2022-02-19 20:00] VITALS: BP 150/81
[2022-02-19] MEDS: TAMSULOSIN 0.4 MG CAP.SR.24H GT SCH (21:04)
[2022-02-19] MEDS: INSULIN GLARGINE, 100 UNIT/ML CARTRIDGE SQ SCH (21:06)
[2022-02-19] MEDS: LATANOPROST EYE DROP 0.005% 2.5 ML BOTTLE EACHEYE SCH (21:09)
[2022-02-20] VITALS: BP 180/91
[2022-02-20] MEDS: IPRATROPIUM NEB FS 0.5 MG/2.5 ML AMPUL.NEB NEB SCH ×4 (01:13→19:48)
[2022-02-20] MEDS: ALBUTEROL FS 2.5 MG/0.5 ML VIAL.NEB NEB SCH ×4 (01:13→19:48)
[2022-02-20] MEDS: GLUCERNA 1.2 1,000 ML BOTTLE NG PRN ×2 (02:06→20:38)
[2022-02-20 04:00] VITALS: BP 158/77
[2022-02-20] MEDS: BLOOD SUGAR DIAGNOSTIC 1 EACH STRIP IN SCH ×3 (05:21→21:04)
[2022-02-20] MEDS: LEVOTHYROXINE SODIUM 125 MCG TABLET GT SCH (05:21)
[2022-02-20 06:22] LABS: BASOPHILS % (AUTO) 0.2 % (0.0-2.0); EOSINOPHILS % (AUTO) 3.2 % (0.0-6.0); HEMATOCRIT 26 % (39-51); HEMOGLOBIN 8.5 g/dL (13.5-17.5); LYMPHOCYTES % (AUTO) 13.3 % (20.0-44.0); MEAN CORPUSCULAR HGB CONC 33 g/dl (31.0-36.0); MEAN CORPUSCULAR VOLUME 94 fL (80-96); MONOCYTES # (AUTO) 0.5 K/uL (0.1-1.30); MONOCYTES % (AUTO) 7.3 % (2.0-12.0); NEUTROPHILS # (AUTO) 5.7 K/uL (1.8-8.9); PLATELET COUNT (AUTO) 153 K/uL (150-450); RED BLOOD CELL COUNT(AUTO) 2.79 MIL/uL (4.5-6.0); WHITE BLOOD COUNT (AUTO) 7.4 K/uL (4.3-11.0)
[2022-02-20 06:37] LABS: CALCIUM, SERUM 8.5 mg/dL (8.5-10.1); CREATININE 1.3 mg/dL (0.6-1.3); MAGNESIUM 2.2 mg/dL (1.8-2.4); PHOSPHORUS 3.7 mg/dL (2.5-4.9); POTASSIUM 3.8 mmol/L (3.5-5.1)
--- NOTE | 2022-02-20 07:10 | NUR ---
RN NOTE RECEIVED PATIENT IN BED, NON-VERBAL. TRACH WITH MECHANICAL VENT. PORTEX 8, VENT SETTINGS ARE FOLLOWS, AC 12, VT 500, FIO2 30%, PEEP 10. TOLERATING VENT SETTINGS, O2 SAT WNL, ON TELE SR HR IN 70'S , PATIENT SUCTIONED VIA TRACH, SMALL AMOUNT OF THICK WHITE SECRETIONS. TRACH SITE CLEAN AND DRY. ORAL CARE PROVIDED. SKIN WARM AND DRY. NOTED WITH LEFT HAND 20G AND RIGHT UPPER ARM MID LINE, NOTED WITH G-TUBE, INFUSING CLUCERNA AT 65 CC/HR. NO RESIDUAL, HOB ELEVATED 40 DEGREES. KNOX CATHETER INTACT, DRAINING YELLOW URINE. NOTED WITH BILATERAL ARM ABNORMAL EXTENSION. BED ASSISTED WITH TURNING AND REPOSITIONING, BED LOW, IN LOCKED POSITION, CALL LIGHT WITHIN REACH, WILL CONTINUE TO MONITOR.
[2022-02-20 08:00] VITALS: BP 145/86
[2022-02-20] MEDS: LEVETIRACETAM SOL (5 ML) 100 MG/ML UDC GT SCH ×2 (08:18→21:01)
[2022-02-20] MEDS: CHOLESTYRAMINE/ASPARTAME 4 G/PKT PACKET GT SCH (08:18)
[2022-02-20] MEDS: FAMOTIDINE (20 MG) 20 MG TABLET GT SCH (08:18)
[2022-02-20] MEDS: HYDROGEN PEROXIDE 480 ML BOTTLE TP SCH ×2 (08:20→21:05)
[2022-02-20] MEDS: APIXABAN 2.5 MG TABLET GT SCH ×2 (08:23→16:31)
[2022-02-20] MEDS: SIROLIMUS GT SCH (08:24)
[2022-02-20 12:00] VITALS: BP 143/81
[2022-02-20] MEDS: DIGOXIN 0.125 MG TABLET GT SCH (12:33)
[2022-02-20 16:00] VITALS: BP 131/75
--- NOTE | 2022-02-20 18:00 | NUR ---
RN NOTES NO SIGNIFICANT CHANGES NOTED ON THIS SHIFT, TRACH SUCTIONING DONE NEEDED, TOLERATING CURRENT VENT SETTINGS WELL. TELE MONITOR READS CONTROLLED A-FIB WITH HR 50-70'S. VSS. AFEBRILE THROUGH SHIFT WITH NO S/SX OF DISTRESS NOTED. KNOX CATH IN PLACE DRAINING YELLOW URINE. SR UP x3, CALL LIGHT WITHIN EASY REACH, SAFETY AND ASPIRATION PRECAUTIONS MAINTAINED. WILL ENDORSE TO THE SENIOR SQL DBA NURSE FOR CONTINUITY OF CARE .
--- NOTE | 2022-02-20 19:40 | NUR ---
RN NOTE RECEIVED PATIENT IN BED, NON-VERBAL, OPENS EYES. UNABLE TO FOLLOW COMMANDS. BREATHING EVEN AND UNLABORED. ON TRACH WITH VENT, PORTEX 8, VENT SETTINGS ARE FOLLOWS, AC 12, TV 500, FIO2, 30%, PEEP 10. TOLERATING WELL, SATURATION OF100 PERCENT WITH 78 BPM. HOB ELEVATED 40 DEGREES. TRACH SITE CLEAN, NO DRAINAGE. PATIENT SUCTIONED, SMALL AMOUNT OF THIN WHITE FLUIDS. SKIN WARM AND DRY. ARELIS MID AND LEFT ARM 20G, FLUSHES WELL. G-TUBE NOTED, INFUSING GLUCERNA AT 65 CC/HR, NO RESIDUAL. KNOX CATHETER INTACT, DRAINING YELLOW URINE BY GRAVITY. NO HEMATURIA NOTED. ASSISTED WITH TURNING AND REPOSITIONING BED LOW, IN LOCKED POSITION, CALL LIGHT WITHIN REACH, WILL CONTINUE TO MONITOR.
[2022-02-20 20:00] VITALS: BP 157/71
[2022-02-20] MEDS: ACETAMINOPHEN 650 MG/20.3 ML UDC GT PRN (20:46)
--- NOTE | 2022-02-20 21:00 | NUR ---
RN NOTE PATIENT WAS NOTED WITH AXILLARY TEMPERATURE OF 100.5. COOLING MEASURES INITIATED. ADMINISTERED TYLENOL 650 MG VIA G-TUBE. TURNED AND REPOSITIONED. WILL CONTINUE TO MONITOR.
[2022-02-20] MEDS: TAMSULOSIN 0.4 MG CAP.SR.24H GT SCH (21:01)
[2022-02-20] MEDS: INSULIN GLARGINE, 100 UNIT/ML CARTRIDGE SQ SCH (21:05)
[2022-02-20] MEDS: LATANOPROST EYE DROP 0.005% 2.5 ML BOTTLE EACHEYE SCH (21:06)
[2022-02-21] VITALS: BP 157/58
[2022-02-21] MEDS: ALBUTEROL FS 2.5 MG/0.5 ML VIAL.NEB NEB SCH ×4 (01:50→19:20)
[2022-02-21] MEDS: IPRATROPIUM NEB FS 0.5 MG/2.5 ML AMPUL.NEB NEB SCH ×4 (01:50→19:20)
[2022-02-21 04:00] VITALS: BP 155/58
[2022-02-21] MEDS: BLOOD SUGAR DIAGNOSTIC 1 EACH STRIP IN SCH ×3 (05:14→21:55)
[2022-02-21] MEDS: LEVOTHYROXINE SODIUM 125 MCG TABLET GT SCH (05:15)
--- NOTE | 2022-02-21 06:23 | NUR ---
RN NOTE NO SIGNIFICANT CHANGES. ALL DUE MEDICATIONS ADMINISTERED. PATIENT KEPT CLEAN AND DRY. TURNED AND REPOSITIONED.
--- NOTE | 2022-02-21 07:38 | NUR ---
RN OPENING NOTE PATIENT RECEIVED IN BED, OBTUNDED, EYES OPEN. PATIENT ON MECHANICAL VENTILATOR WITH FIO2 30% SAT 100% ON BEDSIDE MONITOR, NO SIGNS OF LABORED BREATHING NOTED. KNOX CATH IN PLACE, PATENT AND DRAINING. GTUBE IN PLACE RUNNING GLUCERNA AT 65CC/HR. LEFT HAND 20G AND RIGHT UA MIDLINE IN PLACE. BED LOCKED AND IN LOWEST POSITION, CALL LIGHT WITHIN REACH, 3 SIDE RAILS UP.
[2022-02-21 08:00] VITALS: BP 150/73
[2022-02-21] MEDS: CHOLESTYRAMINE/ASPARTAME 4 G/PKT PACKET GT SCH (09:11)
[2022-02-21] MEDS: HYDROGEN PEROXIDE 480 ML BOTTLE TP SCH ×2 (09:12→21:58)
[2022-02-21] MEDS: SIROLIMUS GT SCH (09:12)
[2022-02-21] MEDS: FAMOTIDINE (20 MG) 20 MG TABLET GT SCH (09:12)
[2022-02-21] MEDS: LEVETIRACETAM SOL (5 ML) 100 MG/ML UDC GT SCH ×2 (09:12→21:53)
[2022-02-21] MEDS: APIXABAN 2.5 MG TABLET GT SCH ×2 (09:13→16:34)
[2022-02-21 12:00] VITALS: BP 135/66
[2022-02-21] MEDS: DIGOXIN 0.125 MG TABLET GT SCH (12:34)
[2022-02-21] MEDS: GLUCERNA 1.2 1,000 ML BOTTLE NG PRN (14:36)
[2022-02-21 16:00] VITALS: BP 136/56
--- NOTE | 2022-02-21 18:44 | NUR ---
RN CLOSING NOTE PATIENT REMAINS IN BED, OBTUNDED, EYES OPEN. PATIENT ON MECHANICAL VENTILATOR WITH FIO2 30% SAT 100% ON BEDSIDE MONITOR, NO SIGNS OF LABORED BREATHING NOTED. KNOX CATH IN PLACE, PATENT AND DRAINING. GTUBE IN PLACE RUNNING GLUCERNA AT 65CC/HR. LEFT HAND 20G AND RIGHT UA MIDLINE IN PLACE. BED LOCKED AND IN LOWEST POSITION, CALL LIGHT WITHIN REACH, 3 SIDE RAILS UP. ALL NEEDS ATTENDED DURING SHIFT. WILL ENDORSE TO CELL REPAIRER NURSE.
[2022-02-21 20:00] VITALS: BP 136/96
--- NOTE | 2022-02-21 20:00 | NUR ---
RN NOTE RECEIVED PT WITH TRACH ON VENT, NO SIGNS OF DISTRESS NOTED. WITH OR SAT OF 99%. CONTROLLED AFIB ON TELE MONITOR WITH HR OF 93. NO SIGNS OF PAIN NOTED. GT PATENT AND IN PLACE, GT FEEDING OF GLUCERNA, NO RESIDUALS NOTED. KEPT HOB ELEVATED. ARELIS ML AND LHAND IV SITE INTACT AND PATENT, FLUSHES WELL. KNOX CATH IN PLACE, DRAINING CLEAR YELLOW URINE. WILL CONTINUE TO MONITOR.
--- NOTE | 2022-02-21 20:30 | NUR ---
RN NOTE T 100.0. COOLING MEASURES APPLIED. WILL MONITOR.
[2022-02-21] MEDS: TAMSULOSIN 0.4 MG CAP.SR.24H GT SCH (21:54)
[2022-02-21] MEDS: INSULIN GLARGINE, 100 UNIT/ML CARTRIDGE SQ SCH (21:59)
[2022-02-21] MEDS: LATANOPROST EYE DROP 0.005% 2.5 ML BOTTLE EACHEYE SCH (22:02)
[2022-02-22] VITALS: BP 157/78
[2022-02-22] MEDS: ACETAMINOPHEN 650 MG/20.3 ML UDC GT PRN (00:28)
--- NOTE | 2022-02-22 00:28 | NUR ---
RN NOTE T 100.8. TYLENOL 650MG GIVEN VIA GT. WILL CONTINUE TO MONITOR
[2022-02-22] MEDS: ALBUTEROL FS 2.5 MG/0.5 ML VIAL.NEB NEB SCH ×4 (01:21→19:22)
[2022-02-22] MEDS: IPRATROPIUM NEB FS 0.5 MG/2.5 ML AMPUL.NEB NEB SCH ×4 (01:21→19:22)
[2022-02-22 04:00] VITALS: BP 156/78
[2022-02-22] MEDS: BLOOD SUGAR DIAGNOSTIC 1 EACH STRIP IN SCH ×2 (05:10→13:12)
[2022-02-22] MEDS: LEVOTHYROXINE SODIUM 125 MCG TABLET GT SCH (05:14)
[2022-02-22 06:23] LABS: BASOPHILS % (AUTO) 0.1 % (0.0-2.0); EOSINOPHILS % (AUTO) 2.7 % (0.0-6.0); HEMATOCRIT 27 % (39-51); HEMOGLOBIN 8.8 g/dL (13.5-17.5); LYMPHOCYTES # (AUTO) 0.9 K/uL (0.8-4.8); LYMPHOCYTES % (AUTO) 11.2 % (20.0-44.0); MEAN CORPUSCULAR HGB CONC 32 g/dl (31.0-36.0); MEAN CORPUSCULAR VOLUME 93 fL (80-96); MONOCYTES # (AUTO) 0.6 K/uL (0.1-1.30); MONOCYTES % (AUTO) 7.8 % (2.0-12.0); NEUTROPHILS # (AUTO) 6.3 K/uL (1.8-8.9); NEUTROPHILS % (AUTO) 78.2 % (43.0-81.0); PLATELET COUNT (AUTO) 153 K/uL (150-450); RED BLOOD CELL COUNT(AUTO) 2.91 MIL/uL (4.5-6.0); WHITE BLOOD COUNT (AUTO) 8.1 K/uL (4.3-11.0)
[2022-02-22 06:52] LABS: CALCIUM, SERUM 8.7 mg/dL (8.5-10.1); CREATININE 1.3 mg/dL (0.6-1.3); PHOSPHORUS 3.9 mg/dL (2.5-4.9); POTASSIUM 3.8 mmol/L (3.5-5.1)
--- NOTE | 2022-02-22 07:11 | NUR ---
RN NOTE PT TOLERATING VENT SETTINGS, NO RESP DISTRESS NOTED. TOLERATED GT FEEDING WITH NO RESIDUALS. LATEST BODY TEMP 99.4. KNOX DRAINING WELL. TURNED AND REPOSITIONED. PT HAD 2 WATERY STOOL DURING SHIFT AND 2 REPORTED FROM 7AM SHIFT, COLLECTED STOOL SAMPLE FOR CDIFF SENT TO LAB. ENDORSED TO NEXT SHIFT NURSE FOR LOU.
--- NOTE | 2022-02-22 07:31 | NUR ---
telecommunication engineer note patient in bed , with trach to vent setting as ordered, with g tube feeding as ordered keep hob elevated at all time , on tele monitor afib hr 77 , with Jones cath to gravity, bed in lowest and locked position , will cont to monitor
[2022-02-22 08:00] VITALS: BP 135/80
[2022-02-22] MEDS: SIROLIMUS GT SCH (08:37)
[2022-02-22] MEDS: LEVETIRACETAM SOL (5 ML) 100 MG/ML UDC GT SCH (08:37)
[2022-02-22] MEDS: FAMOTIDINE (20 MG) 20 MG TABLET GT SCH (08:37)
[2022-02-22] MEDS: APIXABAN 2.5 MG TABLET GT SCH ×2 (08:41→16:23)
[2022-02-22] MEDS: HYDROGEN PEROXIDE 480 ML BOTTLE TP SCH (08:47)
[2022-02-22] MEDS: CHOLESTYRAMINE/ASPARTAME 4 G/PKT PACKET GT SCH (08:49)
[2022-02-22] MEDS: GLUCERNA 1.2 1,000 ML BOTTLE NG PRN (10:54)
--- NOTE | 2022-02-22 11:14 | NUR ---
telephone betting clerk note family at bedside ,trach care done , all needs attended
--- NOTE | 2022-02-22 11:21 | NUR ---
television news video editor note dr sheppard id doctor at bedside aware that last night t 100.8 today is 99.0 stated ok to go to snf family at bedside
[2022-02-22 12:00] VITALS: BP 141/70
[2022-02-22] MEDS: DIGOXIN 0.125 MG TABLET GT SCH (13:13)
--- NOTE | 2022-02-22 15:12 | NUR ---
telephoto engineer note per nitin rn water resource consultant ok to discharge to subacute notified that per [facility] patient has c dif ,ordered vancomycin via g tube q 6 hour , still ok to discharge to subacute
[2022-02-22 16:00] VITALS: BP 117/62
--- NOTE | 2022-02-22 17:00 | NUR ---
telephone maintainer note spoke with josefina guerra from subacute report given , stated that bed will be ready latter on after 1899 will f\u
[2022-02-22] MEDS ORDERED: VANCOMYCIN HCL 125 MG/2.5 ML ORAL.SUSP PEG SCH (18:00)
[2022-02-22] MEDS ORDERED: VANC125C11 PO (18:19)
--- NOTE | 2022-02-22 18:51 | NUR ---
telecasting engineer note all needs attended, with trach to vent setting keep hob elelvated , not in distress
--- NOTE | 2022-02-22 19:08 | NUR ---
television production assistant note called to subacute, report given to josefina ,will go room 278
--- NOTE | 2022-02-22 21:00 | NUR ---
RN NOTE DISCHARGE TO [facility] IN STABLE CONDITION. REPORT GIVEN TO PARVEEN HUTTON.
== END 2022-02-22 20:52 | DRG 870 ==
LOC: ER 08:49 → TELE1 11:14
PROVIDERS: ADMIT Internal Medicine; ATTEND Nurse Practitioner Acute Care
PROC: 5A1955Z Respiratory Ventilation, Greater than 96 Consecutive Hours (ICD-10-PCS; principal; 2022-02-12)
PROC: 05H533Z Insertion of Infusion Device into Right Subclavian Vein, Percutaneous Approach (ICD-10-PCS; 2022-02-15)
PROC: B546ZZA Ultrasonography of Right Subclavian Vein, Guidance (ICD-10-PCS; 2022-02-15)
DX: A41.9 Sepsis, unspecified organism (principal); G92.8 Other toxic encephalopathy; R65.21 Severe sepsis with septic shock; J18.9 Pneumonia, unspecified organism; I13.2 Hypertensive heart and chronic kidney disease with heart failure and with stage 5 chronic kidney disease, or end stage renal disease; J96.10 Chronic respiratory failure, unspecified whether with hypoxia or hypercapnia; D68.59 Other primary thrombophilia; E44.0 Moderate protein-calorie malnutrition; E87.2 Acidosis; I48.20 Chronic atrial fibrillation, unspecified; I50.32 Chronic diastolic (congestive) heart failure; Z99.11 Dependence on respirator [ventilator] status; Z94.0 Kidney transplant status; J90 Pleural effusion, not elsewhere classified; J98.11 Atelectasis; A04.72 Enterocolitis due to Clostridium difficile, not specified as recurrent; E11.649 Type 2 diabetes mellitus with hypoglycemia without coma; E11.22 Type 2 diabetes mellitus with diabetic chronic kidney disease; G40.909 Epilepsy, unspecified, not intractable, without status epilepticus; D63.8 Anemia in other chronic diseases classified elsewhere; D69.6 Thrombocytopenia, unspecified; E03.9 Hypothyroidism, unspecified; E11.43 Type 2 diabetes mellitus with diabetic autonomic (poly)neuropathy; E78.5 Hyperlipidemia, unspecified; H40.9 Unspecified glaucoma; I25.2 Old myocardial infarction; J44.9 Chronic obstructive pulmonary disease, unspecified; K80.20 Calculus of gallbladder without cholecystitis without obstruction; N40.0 Benign prostatic hyperplasia without lower urinary tract symptoms; R13.10 Dysphagia, unspecified; M81.0 Age-related osteoporosis without current pathological fracture; Z86.73 Personal history of transient ischemic attack (TIA), and cerebral infarction without residual deficits; Z87.440 Personal history of urinary (tract) infections; Z93.1 Gastrostomy status; Z90.5 Acquired absence of kidney; Z79.01 Long term (current) use of anticoagulants; Z79.4 Long term (current) use of insulin; Z20.822 Contact with and (suspected) exposure to COVID-19; Z79.899 Other long term (current) drug therapy; L30.8 Other specified dermatitis; K31.84 Gastroparesis; D32.0 Benign neoplasm of cerebral meninges; Z68.20 Body mass index [BMI] 20.0-20.9, adult; Z74.01 Bed confinement status
CPT/HCPCS: 31720; 36415; 70450-TC; 71045-TC; 80048-TC; 80076-TC; 80177; 80202-TC; 81001; 82140-TC; 82607-TC; 82728-TC; 82962-TC; 83540-TC; 83605-TC; 83735-TC; 83880; 84100-TC; 84443-TC; 84484-TC; 85025-TC; 85730-TC; 87040-TC; 87086-TC; 94003-TC; 94760-TC; 94762-TC; 94799-TC; A4623; A6253; A6403; A7526; C9803; G0378; J0360; J0885; J1815; J1953; J2270; J2405; J3370; J7030; J7050; J7060; J7070

== ENCOUNTER 2022-10-17 | Inpatient (IN) | payer MEDICARE, OTHER ==
[~2022-10-17] VITALS: Ht 165.1 cm; Wt 64.9 kg
[~2022-10-17] MED LIST changes: +BACL10TA GT; +BISA10SU11 RC; +CHOL4PAC2 GT; +DIGO125T GT; +FAMO-131 GT; +FERR325T23 GT; +GUAI-671 GT; +HYDR1TOW4 TP; +INSU100V7 SQ; -MAG30ORA GT; -MAGN400O6 GT; -PANT40SU2 GT; -PIPE3.376 IV; +POLY17PO4 GT; +SITA50TA GT; +VANC125C11 PO; -VANC1VIA34 XX
[2022-10-18 07:29] LABS: HEMOGLOBIN 8.5 g/dL (13.5-17.5)
[2022-10-19] MEDS ORDERED: TUBERCULIN,PURIF.PROT.DERIV. 5 TU/0.1 ML VIAL ID SCH (05:52)
[2022-10-19] MEDS ORDERED: DEXTROSE 50%-WATER 50 ML DISP.SYRIN IV PRN (05:52)
[2022-10-19] MEDS ORDERED: CEFEPIME 2 GM in IV D5W 100 ML IV SCH (05:52)
[2022-10-19] MEDS ORDERED: CEFEPIME 1 GM in IV D5W 50 ML IV SCH ×6 (05:52)
[2022-10-19] MEDS ORDERED: POLYETHYLENE GLYCOL 3350 17 GM POWD.PACK GT PRN (05:52)
[2022-10-19] MEDS ORDERED: ONDANSETRON 4 MG TAB.RAPDIS GT PRN (05:52)
[2022-10-19] MEDS ORDERED: ACETAMINOPHEN 650 MG/20 ML UDC- SA PATIENTS-FEVER ONLY GT PRN (05:52)
[2022-10-19] MEDS ORDERED: ALBUTEROL HALF STRENGTH 1.25 MG/3 ML VIAL.NEB NEB PRN (05:52)
[2022-10-19] MEDS ORDERED: CLOTRIMAZOLE 1% 15 GM TUBE TP PRN (05:52)
[2022-10-19] MEDS ORDERED: CEFTRIAXONE 2 G in IV D5W 100 ML IV SCH (05:52)
[2022-10-19] MEDS ORDERED: BISACODYL SUPP (10 MG) 10 MG/SUPP.RECT SUPP.RECT RC PRN (05:52)
[2022-10-19] MEDS: LEVOTHYROXINE SODIUM 125 MCG TABLET GT SCH (06:10)
[2022-10-19] MEDS: ALBUTEROL FS 2.5 MG/0.5 ML VIAL.NEB NEB SCH ×3 (07:35→18:37)
[2022-10-19] MEDS: IPRATROPIUM NEB FS 0.5 MG/2.5 ML AMPUL.NEB NEB SCH ×3 (07:35→18:37)
[2022-10-19 07:44] VITALS: BP 142/78
[2022-10-19] MEDS: CHOLESTYRAMINE/ASPARTAME 4 G/PKT PACKET GT SCH (09:00)
[2022-10-19] MEDS: LEVETIRACETAM 500 MG/5 ML GT SCH ×2 (09:00→21:28)
[2022-10-19] MEDS: VITAMINS A AND D 56.7 GM TUBE TP SCH ×2 (09:00→21:28)
[2022-10-19] MEDS: FAMOTIDINE (20 MG) 20 MG TABLET GT SCH (09:00)
[2022-10-19] MEDS: HYDROGEN PEROXIDE 480 ML BOTTLE TP SCH ×2 (09:00→20:05)
[2022-10-19] MEDS: CICLOPIROX 8% TP SCH (09:00)
[2022-10-19] MEDS: BACLOFEN 5 MG GT SCH ×2 (09:00→17:01)
[2022-10-19] MEDS: Z GUARD REMEDY 4 OZ OINT TP SCH ×2 (09:00→21:28)
[2022-10-19] MEDS: APIXABAN 2.5 MG TABLET GT SCH ×2 (09:00→17:01)
[2022-10-19] MEDS: JANUVIA 25 MG GT SCH (09:00)
[2022-10-19] MEDS: FERROUS SULFATE - FOR SA ONLY 330 MG/7.5 ML UDC GT SCH ×3 (09:00→17:01)
[2022-10-19] MEDS: VIT B CMPLX 3/FA/VIT C/BIOTIN 1 TAB TABLET GT SCH (09:00)
[2022-10-19] MEDS: ACIDOPHILUS/BULGARICUS 1 EACH TAB.CHEW GT SCH ×2 (09:00→17:01)
[2022-10-19] MEDS: SIROLIMUS 1 MG GT SCH (09:00)
--- NOTE | 2022-10-19 09:07 | NUR ---
Monthly Progress Note: Resident on activity program was seen and sensory stimulation activities was provided. Room Visit, 1:1 Social, Grooming, Soothing Sounds, News in Review and P.M movie. game show like the Pereira is Right, Who wants to be a Millionaire on TV. Book on Tape. These activities will continue as current as per order.
[2022-10-19] MEDS: GLUCERNA 1.2 1,000 ML BOTTLE GT PRN (13:00)
[2022-10-19] MEDS: INSULIN ASPART/LISPRO 100 UNIT/ML CARTRIDGE SQ PRN ×2 (13:00→21:29)
[2022-10-19] MEDS: DIGOXIN 0.125 MG TABLET GT SCH (13:34)
[2022-10-19] MEDS: METOCLOPRAMIDE HCL 10 MG TABLET GT SCH ×2 (13:34→21:28)
[2022-10-19] MEDS: BLOOD SUGAR DIAGNOSTIC 1 EACH STRIP IN SCH ×2 (13:34→21:28)
[2022-10-19 19:31] VITALS: BP 125/76
--- NOTE | 2022-10-19 20:50 | NUR ---
RT NOTE RECEIVED PT ON CURRENT MD ORDERED VENT SETTINGS OF AC 12 500 40% +5. B/U TRACH AT BEDSIDE. AMBU BAG AT BEDSIDE. SX'ED PRN. TX GIVEN. NO ADVERSE REACTIONS NOTED. ALARMS ON AND AUDIBLE
[2022-10-19] MEDS: TAMSULOSIN 0.4 MG CAP.SR.24H GT SCH (21:28)
[2022-10-19] MEDS: LATANOPROST EYE DROP 0.005% 2.5 ML BOTTLE EACHEYE SCH (21:28)
[2022-10-19] MEDS: INSULIN GLARGINE, 100 UNIT/ML CARTRIDGE SQ SCH (21:29)
[2022-10-20] MEDS: ALBUTEROL FS 2.5 MG/0.5 ML VIAL.NEB NEB SCH ×4 (00:57→20:06)
[2022-10-20] MEDS: IPRATROPIUM NEB FS 0.5 MG/2.5 ML AMPUL.NEB NEB SCH ×4 (00:57→20:06)
[2022-10-20] MEDS: METOCLOPRAMIDE HCL 10 MG TABLET GT SCH ×3 (05:49→21:00)
[2022-10-20] MEDS: LEVOTHYROXINE SODIUM 125 MCG TABLET GT SCH (05:49)
[2022-10-20] MEDS: BLOOD SUGAR DIAGNOSTIC 1 EACH STRIP IN SCH ×3 (05:49→21:34)
[2022-10-20] MEDS: INSULIN ASPART/LISPRO 100 UNIT/ML CARTRIDGE SQ PRN ×3 (05:50→21:36)
[2022-10-20 06:47] LABS: HEMOGLOBIN 8.2 g/dL (13.5-17.5)
[2022-10-20 07:29] VITALS: BP 148/77
[2022-10-20] MEDS: FERROUS SULFATE - FOR SA ONLY 330 MG/7.5 ML UDC GT SCH ×3 (09:37→17:00)
[2022-10-20] MEDS: SIROLIMUS 1 MG GT SCH (09:37)
[2022-10-20] MEDS: GLUCERNA 1.2 1,000 ML BOTTLE GT PRN (09:37)
[2022-10-20] MEDS: JANUVIA 25 MG GT SCH (09:37)
[2022-10-20] MEDS: APIXABAN 2.5 MG TABLET GT SCH ×2 (09:37→17:00)
[2022-10-20] MEDS: VITAMINS A AND D 56.7 GM TUBE TP SCH ×2 (09:38→21:00)
[2022-10-20] MEDS: FAMOTIDINE (20 MG) 20 MG TABLET GT SCH (09:38)
[2022-10-20] MEDS: VIT B CMPLX 3/FA/VIT C/BIOTIN 1 TAB TABLET GT SCH (09:38)
[2022-10-20] MEDS: Z GUARD REMEDY 4 OZ OINT TP SCH ×2 (09:38→21:00)
[2022-10-20] MEDS: BACLOFEN 5 MG GT SCH ×2 (09:38→17:00)
[2022-10-20] MEDS: LEVETIRACETAM 500 MG/5 ML GT SCH ×2 (09:38→21:00)
[2022-10-20] MEDS: CICLOPIROX 8% TP SCH (09:38)
[2022-10-20] MEDS: ACIDOPHILUS/BULGARICUS 1 EACH TAB.CHEW GT SCH ×2 (09:38→17:00)
[2022-10-20] MEDS: CHOLESTYRAMINE/ASPARTAME 4 G/PKT PACKET GT SCH (09:38)
[2022-10-20] MEDS: HYDROGEN PEROXIDE 480 ML BOTTLE TP SCH ×2 (09:40→20:06)
--- NOTE | 2022-10-20 11:19 | NUR ---
Family Invite to IDT Meeting: DELMI emailed the pt.'s Adrian casper at [email or web address] to invite family to participate in 10/22/2022 IDT meeting between 12:30pm-1:30pm. DELMI will follow up at a later time.
[2022-10-20 12:13] VITALS: BP 136/62
[2022-10-20] MEDS: DIGOXIN 0.125 MG TABLET GT SCH (13:01)
[2022-10-20 20:29] VITALS: BP 164/74
[2022-10-20] MEDS: TAMSULOSIN 0.4 MG CAP.SR.24H GT SCH (21:00)
[2022-10-20] MEDS: LATANOPROST EYE DROP 0.005% 2.5 ML BOTTLE EACHEYE SCH (21:00)
[2022-10-20] MEDS: EPOETIN ALFA-EPBX 10,000 UNIT/ML VIAL SQ SCH (21:00)
[2022-10-20] MEDS: INSULIN GLARGINE, 100 UNIT/ML CARTRIDGE SQ SCH (21:35)
[2022-10-21 00:11] VITALS: BP 111/60
[2022-10-21] MEDS: ALBUTEROL FS 2.5 MG/0.5 ML VIAL.NEB NEB SCH ×4 (01:46→20:15)
[2022-10-21] MEDS: IPRATROPIUM NEB FS 0.5 MG/2.5 ML AMPUL.NEB NEB SCH ×4 (01:46→20:15)
[2022-10-21] MEDS: METOCLOPRAMIDE HCL 10 MG TABLET GT SCH ×3 (05:48→21:11)
[2022-10-21] MEDS: LEVOTHYROXINE SODIUM 125 MCG TABLET GT SCH (05:48)
[2022-10-21] MEDS: GLUCERNA 1.2 1,000 ML BOTTLE GT PRN ×2 (05:48→16:52)
[2022-10-21] MEDS: BLOOD SUGAR DIAGNOSTIC 1 EACH STRIP IN SCH ×3 (05:48→21:11)
[2022-10-21] MEDS: INSULIN ASPART/LISPRO 100 UNIT/ML CARTRIDGE SQ PRN ×2 (05:48→13:57)
[2022-10-21 07:41] VITALS: BP 132/54
[2022-10-21] MEDS: CHOLESTYRAMINE/ASPARTAME 4 G/PKT PACKET GT SCH (08:32)
[2022-10-21] MEDS: HYDROGEN PEROXIDE 480 ML BOTTLE TP PRN (08:48)
[2022-10-21] MEDS: HYDROGEN PEROXIDE 480 ML BOTTLE TP SCH ×2 (09:00→20:16)
[2022-10-21] MEDS: APIXABAN 2.5 MG TABLET GT SCH ×2 (09:53→16:51)
[2022-10-21] MEDS: ACIDOPHILUS/BULGARICUS 1 EACH TAB.CHEW GT SCH ×2 (09:54→16:51)
[2022-10-21] MEDS: JANUVIA 25 MG GT SCH (09:54)
[2022-10-21] MEDS: SIROLIMUS 1 MG GT SCH (09:54)
[2022-10-21] MEDS: FERROUS SULFATE - FOR SA ONLY 330 MG/7.5 ML UDC GT SCH ×3 (09:54→16:51)
[2022-10-21] MEDS: VIT B CMPLX 3/FA/VIT C/BIOTIN 1 TAB TABLET GT SCH (09:54)
[2022-10-21] MEDS: BACLOFEN 5 MG GT SCH ×2 (09:55→16:51)
[2022-10-21] MEDS: LEVETIRACETAM 500 MG/5 ML GT SCH ×2 (09:55→21:11)
[2022-10-21] MEDS: FAMOTIDINE (20 MG) 20 MG TABLET GT SCH (09:56)
[2022-10-21] MEDS: CICLOPIROX 8% TP SCH (09:57)
[2022-10-21] MEDS: Z GUARD REMEDY 4 OZ OINT TP SCH ×2 (09:57→21:11)
[2022-10-21] MEDS: VITAMINS A AND D 56.7 GM TUBE TP SCH ×2 (09:57→21:12)
--- NOTE | 2022-10-21 11:42 | NUR ---
Please see resident's previous account [id number] for all assessments and nurses notes.
[2022-10-21 12:17] VITALS: BP 130/58
[2022-10-21] MEDS: DIGOXIN 0.125 MG TABLET GT SCH (13:50)
[2022-10-21 19:41] VITALS: BP 153/87
[2022-10-21] MEDS: LATANOPROST EYE DROP 0.005% 2.5 ML BOTTLE EACHEYE SCH (21:12)
[2022-10-21] MEDS: TAMSULOSIN 0.4 MG CAP.SR.24H GT SCH (21:12)
[2022-10-21] MEDS: INSULIN GLARGINE, 100 UNIT/ML CARTRIDGE SQ SCH (21:13)
[2022-10-22 00:09] VITALS: BP 130/58
[2022-10-22] MEDS: ALBUTEROL FS 2.5 MG/0.5 ML VIAL.NEB NEB SCH ×4 (01:57→19:08)
[2022-10-22] MEDS: IPRATROPIUM NEB FS 0.5 MG/2.5 ML AMPUL.NEB NEB SCH ×4 (01:57→19:08)
[2022-10-22] MEDS: METOCLOPRAMIDE HCL 10 MG TABLET GT SCH ×3 (05:13→21:36)
[2022-10-22] MEDS: INSULIN ASPART/LISPRO 100 UNIT/ML CARTRIDGE SQ PRN ×3 (05:22→21:39)
[2022-10-22] MEDS: BLOOD SUGAR DIAGNOSTIC 1 EACH STRIP IN SCH ×3 (05:22→21:36)
[2022-10-22] MEDS: LEVOTHYROXINE SODIUM 125 MCG TABLET GT SCH (05:49)
[2022-10-22 07:41] VITALS: BP 137/72
[2022-10-22 07:58] LABS: BASOPHILS % (AUTO) 0.1 % (0.0-2.0); EOSINOPHILS % (AUTO) 1.9 % (0.0-6.0); HEMATOCRIT 28 % (39-51); HEMOGLOBIN 8.5 g/dL (13.5-17.5); LYMPHOCYTES # (AUTO) 0.5 K/uL (0.8-4.8); LYMPHOCYTES % (AUTO) 8.2 % (20.0-44.0); MEAN CORPUSCULAR HGB CONC 31 g/dl (31.0-36.0); MEAN CORPUSCULAR VOLUME 92 fL (80-96); MONOCYTES # (AUTO) 0.9 K/uL (0.1-1.30); MONOCYTES % (AUTO) 13.4 % (2.0-12.0); NEUTROPHILS # (AUTO) 4.9 K/uL (1.8-8.9); NEUTROPHILS % (AUTO) 76.4 % (43.0-81.0); PLATELET COUNT (AUTO) 146 K/uL (150-450); RED BLOOD CELL COUNT(AUTO) 3.05 MIL/uL (4.5-6.0); WHITE BLOOD COUNT (AUTO) 6.5 K/uL (4.3-11.0)
[2022-10-22] MEDS: CHOLESTYRAMINE/ASPARTAME 4 G/PKT PACKET GT SCH (08:29)
[2022-10-22 08:46] LABS: CALCIUM, SERUM 10.2 mg/dL (8.5-10.1); CARBON DIOXIDE 30 mmol/L (21-32); CHLORIDE 92 mmol/L (98-107); CREATININE 1.8 mg/dL (0.6-1.3); GLUCOSE 112 mg/dL (74-106); MAGNESIUM 2.6 mg/dL (1.8-2.4); POTASSIUM 4.7 mmol/L (3.5-5.1); SODIUM SERUM 128 mmol/L (136-145); UREA NITROGEN, BLOOD 48 mg/dL (7-18)
[2022-10-22] MEDS: HYDROGEN PEROXIDE 480 ML BOTTLE TP SCH ×2 (09:00→21:17)
[2022-10-22] MEDS: APIXABAN 2.5 MG TABLET GT SCH ×2 (09:45→17:07)
[2022-10-22] MEDS: VIT B CMPLX 3/FA/VIT C/BIOTIN 1 TAB TABLET GT SCH (09:46)
[2022-10-22] MEDS: JANUVIA 25 MG GT SCH (09:46)
[2022-10-22] MEDS: ACIDOPHILUS/BULGARICUS 1 EACH TAB.CHEW GT SCH ×2 (09:46→17:08)
[2022-10-22] MEDS: SIROLIMUS 1 MG GT SCH (09:46)
[2022-10-22] MEDS: FERROUS SULFATE - FOR SA ONLY 330 MG/7.5 ML UDC GT SCH ×3 (09:46→17:08)
[2022-10-22] MEDS: BACLOFEN 5 MG GT SCH ×2 (09:47→17:08)
[2022-10-22] MEDS: FAMOTIDINE (20 MG) 20 MG TABLET GT SCH (09:47)
[2022-10-22] MEDS: LEVETIRACETAM 500 MG/5 ML GT SCH ×2 (09:47→21:36)
[2022-10-22] MEDS: VITAMINS A AND D 56.7 GM TUBE TP SCH ×2 (09:48→21:36)
[2022-10-22] MEDS: CICLOPIROX 8% TP SCH (09:48)
[2022-10-22] MEDS: Z GUARD REMEDY 4 OZ OINT TP SCH ×2 (09:48→21:36)
--- NOTE | 2022-10-22 11:00 | NUR ---
Patient's son Trevon at bedside visiting. Notified that Dr. Mak ordered labs this AM however awaiting for Dr. Mak to review the labs.
[2022-10-22] MEDS: DIGOXIN 0.125 MG TABLET GT SCH (13:38)
--- NOTE | 2022-10-22 15:32 | NUR ---
INTERDISCIPLINARY PLAN OF CARE CONFERENCE took place today. The patient's son, Trevon [phone] Alicea and Interdisciplinary team discussed the plan of care in detail. Current orders as well as treatments and medications were reviewed. Addendum: 10/22/22 at 1534 by DOTTIE AWAD Pr pharmacy recommendation, DIGOXIN level to be completed Tuesday.
[2022-10-22] MEDS: GLUCERNA 1.2 1,000 ML BOTTLE GT PRN (17:37)
--- NOTE | 2022-10-22 18:03 | NUR ---
Called Dr. Mak's exchange and spoke with and relayed CBC and BMP with the following results; BUN 48, Creat 1.8 Na 128, Mg. 2.6, Phos 5.0 and Ca+ 10.2. Hbg 8.5, Hct 28. New order to start NS at 100cc/hr. until further order and BMP in AM. Patient's son Trevon informed.
[2022-10-22 19:08] VITALS: BP 161/88
[2022-10-22] MEDS: IV NS 0.9% 1,000 ML IV PRN (20:53)
--- NOTE | 2022-10-22 21:01 | NUR ---
Started IV hydration of NS 100 ml\hr on right hand peripheral IV. Son Trevon notified. will continue to monitor.
[2022-10-22] MEDS: LATANOPROST EYE DROP 0.005% 2.5 ML BOTTLE EACHEYE SCH (21:36)
[2022-10-22] MEDS: TAMSULOSIN 0.4 MG CAP.SR.24H GT SCH (21:36)
[2022-10-22] MEDS: INSULIN GLARGINE, 100 UNIT/ML CARTRIDGE SQ SCH (21:37)
[2022-10-22] MEDS: EPOETIN ALFA-EPBX 10,000 UNIT/ML VIAL SQ SCH (21:51)
[2022-10-22 23:51] VITALS: BP 143/59
[2022-10-23] MEDS: GUAIFENESIN 300 MG/15 ML UDC GT PRN (00:18)
[2022-10-23] MEDS: ALBUTEROL FS 2.5 MG/0.5 ML VIAL.NEB NEB SCH ×4 (00:49→19:18)
[2022-10-23] MEDS: IPRATROPIUM NEB FS 0.5 MG/2.5 ML AMPUL.NEB NEB SCH ×4 (00:49→19:18)
[2022-10-23] MEDS: INSULIN ASPART/LISPRO 100 UNIT/ML CARTRIDGE SQ PRN ×3 (05:37→21:21)
[2022-10-23] MEDS: BLOOD SUGAR DIAGNOSTIC 1 EACH STRIP IN SCH ×3 (05:37→21:18)
[2022-10-23] MEDS: METOCLOPRAMIDE HCL 10 MG TABLET GT SCH ×3 (05:37→21:18)
[2022-10-23] MEDS: LEVOTHYROXINE SODIUM 125 MCG TABLET GT SCH (05:37)
[2022-10-23] MEDS: IV NS 0.9% 1,000 ML IV PRN (06:33)
[2022-10-23 07:33] VITALS: BP 102/61
[2022-10-23 07:50] LABS: CALCIUM, SERUM 7.1 mg/dL (8.5-10.1); CREATININE 1.2 mg/dL (0.6-1.3); POTASSIUM 3.3 mmol/L (3.5-5.1)
[2022-10-23] MEDS: LEVETIRACETAM 500 MG/5 ML GT SCH ×2 (08:38→21:18)
[2022-10-23] MEDS: SIROLIMUS 1 MG GT SCH (08:38)
[2022-10-23] MEDS: BACLOFEN 5 MG GT SCH ×2 (08:38→17:07)
[2022-10-23] MEDS: JANUVIA 25 MG GT SCH (08:38)
[2022-10-23] MEDS: ACIDOPHILUS/BULGARICUS 1 EACH TAB.CHEW GT SCH ×2 (08:38→17:07)
[2022-10-23] MEDS: FERROUS SULFATE - FOR SA ONLY 330 MG/7.5 ML UDC GT SCH ×3 (08:38→17:06)
[2022-10-23] MEDS: APIXABAN 2.5 MG TABLET GT SCH ×2 (08:38→17:07)
[2022-10-23] MEDS: CHOLESTYRAMINE/ASPARTAME 4 G/PKT PACKET GT SCH (08:39)
[2022-10-23] MEDS: FAMOTIDINE (20 MG) 20 MG TABLET GT SCH (08:39)
[2022-10-23] MEDS: VIT B CMPLX 3/FA/VIT C/BIOTIN 1 TAB TABLET GT SCH (08:40)
[2022-10-23] MEDS: VITAMINS A AND D 56.7 GM TUBE TP SCH ×2 (09:00→21:18)
[2022-10-23] MEDS: CICLOPIROX 8% TP SCH (09:00)
[2022-10-23] MEDS: Z GUARD REMEDY 4 OZ OINT TP SCH ×2 (09:00→21:18)
[2022-10-23] MEDS: HYDROGEN PEROXIDE 480 ML BOTTLE TP SCH ×2 (09:03→20:41)
[2022-10-23] MEDS ORDERED: POTASSIUM CHLORIDE 20 MEQ POWDER PACKET NG SCH (10:00)
--- NOTE | 2022-10-23 11:50 | NUR ---
Notified Dr. Mak of today's BMP result, with order to give 40 meq KCL due to K+ level 3.3, repeat BMP on Tuesday and continue IVF x 1 L only then DC. Informed patient's son Trevon of new orders.
[2022-10-23 12:13] VITALS: BP 119/78
--- NOTE | 2022-10-23 13:00 | NUR ---
Held potassium 20 meq and given potassium 40 meq per doctors order, CN aware.
[2022-10-23] MEDS: DIGOXIN 0.125 MG TABLET GT SCH (13:15)
[2022-10-23] MEDS ORDERED: POTASSIUM CHLORIDE 20 MEQ POWDER PACKET GT SCH (13:30)
[2022-10-23] MEDS: GLUCERNA 1.2 1,000 ML BOTTLE GT PRN (17:47)
[2022-10-23] MEDS: TAMSULOSIN 0.4 MG CAP.SR.24H GT SCH (21:18)
[2022-10-23] MEDS: LATANOPROST EYE DROP 0.005% 2.5 ML BOTTLE EACHEYE SCH (21:18)
[2022-10-23] MEDS: INSULIN GLARGINE, 100 UNIT/ML CARTRIDGE SQ SCH (21:19)
[2022-10-24 00:02] VITALS: BP 129/74
[2022-10-24] MEDS: IPRATROPIUM NEB FS 0.5 MG/2.5 ML AMPUL.NEB NEB SCH ×4 (01:30→18:49)
[2022-10-24] MEDS: ALBUTEROL FS 2.5 MG/0.5 ML VIAL.NEB NEB SCH ×4 (01:30→18:49)
[2022-10-24] MEDS: INSULIN ASPART/LISPRO 100 UNIT/ML CARTRIDGE SQ PRN ×3 (05:50→21:12)
[2022-10-24] MEDS: METOCLOPRAMIDE HCL 10 MG TABLET GT SCH ×3 (05:50→21:10)
[2022-10-24] MEDS: BLOOD SUGAR DIAGNOSTIC 1 EACH STRIP IN SCH ×3 (05:50→21:11)
[2022-10-24] MEDS: LEVOTHYROXINE SODIUM 125 MCG TABLET GT SCH (05:50)
[2022-10-24] MEDS ORDERED: EPOETIN ALFA (10,000 UNIT) 10,000 UNIT/ML VIAL SQ ONE (07:30)
--- NOTE | 2022-10-24 07:30 | NUR ---
Received electronic order from Dr. Mak, Epogen 50034 unit SQ x 1 today. Per pharmacist Wallace patient needs to have a current hgb result before giving medication, left a message to Dr. Mak's exchange for hgb level order, waiting for call back.
[2022-10-24 07:42] VITALS: BP 157/82
[2022-10-24] MEDS: VIT B CMPLX 3/FA/VIT C/BIOTIN 1 TAB TABLET GT SCH (08:41)
[2022-10-24] MEDS: ACIDOPHILUS/BULGARICUS 1 EACH TAB.CHEW GT SCH ×2 (08:41→16:30)
[2022-10-24] MEDS: SIROLIMUS 1 MG GT SCH (08:41)
[2022-10-24] MEDS: FERROUS SULFATE - FOR SA ONLY 330 MG/7.5 ML UDC GT SCH ×3 (08:41→16:30)
[2022-10-24] MEDS: JANUVIA 25 MG GT SCH (08:41)
[2022-10-24] MEDS: BACLOFEN 5 MG GT SCH ×2 (08:41→16:30)
[2022-10-24] MEDS: LEVETIRACETAM 500 MG/5 ML GT SCH ×2 (08:41→21:10)
[2022-10-24] MEDS: VITAMINS A AND D 56.7 GM TUBE TP SCH ×2 (08:42→21:11)
[2022-10-24] MEDS: FAMOTIDINE (20 MG) 20 MG TABLET GT SCH (08:42)
[2022-10-24] MEDS: Z GUARD REMEDY 4 OZ OINT TP SCH ×2 (08:42→21:11)
[2022-10-24] MEDS: CICLOPIROX 8% TP SCH (08:42)
[2022-10-24] MEDS: CHOLESTYRAMINE/ASPARTAME 4 G/PKT PACKET GT SCH (08:42)
[2022-10-24] MEDS: APIXABAN 2.5 MG TABLET GT SCH ×2 (09:25→16:30)
[2022-10-24] MEDS: HYDROGEN PEROXIDE 480 ML BOTTLE TP SCH ×2 (09:54→20:47)
--- NOTE | 2022-10-24 11:30 | NUR ---
No call back from Dr. Mak, sent a message to Dr. Fritz for hgb level order, gave order for H&H level. Carried out.
[2022-10-24] MEDS: DIGOXIN 0.125 MG TABLET GT SCH (13:41)
[2022-10-24] MEDS: GLUCERNA 1.2 1,000 ML BOTTLE GT PRN (13:42)
[2022-10-24 14:44] LABS: HEMOGLOBIN 8.6 g/dL (13.5-17.5)
--- NOTE | 2022-10-24 16:32 | NUR ---
Pt. received on current vent settings and tolerated well. Vent is plug into red outlet. Sx. patient 2x + prn. No SOB or respiratory distress noted. Tx given with no adverse reactions noted. Ambu bag and back up trach is at the bed side. Pulse oximeter is on, audible and visible. Trach care done. Will keep monitor the pt.
[2022-10-24 19:38] VITALS: BP 136/72
--- NOTE | 2022-10-24 20:48 | NUR ---
RT NOTE RECEIVED PT ON CURRENT MD ORDERED VENT SETTINGS. B/U TRACH AT BEDSIDE. AMBU BAG AT BEDSIDE. SX'ED PRN. TX GIVEN. NO ADVERSE REACTIONS NOTED. ALARMS ON AND AUDIBLE. TRACHCARE DONE AND CHANGED INNER CANNULA.
[2022-10-24] MEDS: LATANOPROST EYE DROP 0.005% 2.5 ML BOTTLE EACHEYE SCH (21:11)
[2022-10-24] MEDS: TAMSULOSIN 0.4 MG CAP.SR.24H GT SCH (21:11)
[2022-10-24] MEDS: INSULIN GLARGINE, 100 UNIT/ML CARTRIDGE SQ SCH (22:05)
[2022-10-25] MEDS: ALBUTEROL FS 2.5 MG/0.5 ML VIAL.NEB NEB SCH ×4 (00:42→18:47)
[2022-10-25] MEDS: IPRATROPIUM NEB FS 0.5 MG/2.5 ML AMPUL.NEB NEB SCH ×4 (00:42→18:47)
[2022-10-25 01:41] VITALS: BP 138/68
[2022-10-25] MEDS: BLOOD SUGAR DIAGNOSTIC 1 EACH STRIP IN SCH ×3 (05:00→21:31)
[2022-10-25] MEDS: LEVOTHYROXINE SODIUM 125 MCG TABLET GT SCH (05:30)
[2022-10-25] MEDS: METOCLOPRAMIDE HCL 10 MG TABLET GT SCH ×3 (05:30→21:30)
[2022-10-25] MEDS: INSULIN ASPART/LISPRO 100 UNIT/ML CARTRIDGE SQ PRN ×3 (06:23→21:32)
[2022-10-25] MEDS: GLUCERNA 1.2 1,000 ML BOTTLE GT PRN (06:28)
[2022-10-25 07:07] VITALS: BP 117/69
[2022-10-25 07:12] LABS: HEMOGLOBIN 8.1 g/dL (13.5-17.5)
[2022-10-25 07:29] LABS: DIGOXIN 1.88 ng/mL (0.90-2.00)
[2022-10-25 07:37] LABS: CALCIUM, SERUM 9.6 mg/dL (8.5-10.1); CARBON DIOXIDE 30 mmol/L (21-32); CHLORIDE 98 mmol/L (98-107); CREATININE 1.7 mg/dL (0.6-1.3); GLUCOSE 111 mg/dL (74-106); POTASSIUM 4.7 mmol/L (3.5-5.1); SODIUM SERUM 135 mmol/L (136-145); UREA NITROGEN, BLOOD 40 mg/dL (7-18)
[2022-10-25] MEDS: CHOLESTYRAMINE/ASPARTAME 4 G/PKT PACKET GT SCH (08:37)
[2022-10-25] MEDS: HYDROGEN PEROXIDE 480 ML BOTTLE TP SCH ×2 (09:33→20:26)
[2022-10-25] MEDS: APIXABAN 2.5 MG TABLET GT SCH ×2 (09:57→16:50)
[2022-10-25] MEDS: CICLOPIROX 8% TP SCH (09:57)
[2022-10-25] MEDS: FAMOTIDINE (20 MG) 20 MG TABLET GT SCH (09:57)
[2022-10-25] MEDS: FERROUS SULFATE - FOR SA ONLY 330 MG/7.5 ML UDC GT SCH ×3 (09:57→16:50)
[2022-10-25] MEDS: ACIDOPHILUS/BULGARICUS 1 EACH TAB.CHEW GT SCH ×2 (09:57→16:50)
[2022-10-25] MEDS: LEVETIRACETAM 500 MG/5 ML GT SCH ×2 (09:57→21:30)
[2022-10-25] MEDS: VITAMINS A AND D 56.7 GM TUBE TP SCH ×2 (09:57→21:31)
[2022-10-25] MEDS: JANUVIA 25 MG GT SCH (09:57)
[2022-10-25] MEDS: SIROLIMUS 1 MG GT SCH (09:57)
[2022-10-25] MEDS: VIT B CMPLX 3/FA/VIT C/BIOTIN 1 TAB TABLET GT SCH (09:57)
[2022-10-25] MEDS: BACLOFEN 5 MG GT SCH ×2 (09:57→16:51)
[2022-10-25] MEDS: Z GUARD REMEDY 4 OZ OINT TP SCH ×2 (09:57→21:31)
[2022-10-25 11:27] VITALS: BP 126/54
--- NOTE | 2022-10-25 12:43 | NUR ---
Can not change trach at this time due to potex 8 is out of stock. Contactingt Dr. Alieca to get order changed to shiley 8. Charge nurse Katerin notified.
[2022-10-25] MEDS: DIGOXIN 0.125 MG TABLET GT SCH (12:58)
[2022-10-25] MEDS: ACETAMINOPHEN 650 MG/20 ML UDC- SA PATIENTS-PAIN ONLY GT PRN (15:15)
--- NOTE | 2022-10-25 16:30 | NUR ---
Seen and examined by LENKA Taylor, reviewed BMP result, no new order given. Will continue to monitor.
--- NOTE | 2022-10-25 16:43 | NUR ---
Monthly trach tube change done. Trach tube replaced with a Portex 8 per orders. Cuff was inflated after new trach tube was placed to MOV. Airway is secured and patent. Morejon is able to pass all the way down airway. Equal BTS heards, symmetrical chest movement noted. No bleeding was noted after procedure. Quincy RT was at bedside and assisting. RN Katerin aware. No resp distress or SOB noted.
[2022-10-25 20:01] VITALS: BP 126/80
[2022-10-25] MEDS: TAMSULOSIN 0.4 MG CAP.SR.24H GT SCH (21:31)
[2022-10-25] MEDS: LATANOPROST EYE DROP 0.005% 2.5 ML BOTTLE EACHEYE SCH (21:31)
[2022-10-25] MEDS: INSULIN GLARGINE, 100 UNIT/ML CARTRIDGE SQ SCH (21:32)
[2022-10-25] MEDS: EPOETIN ALFA-EPBX 10,000 UNIT/ML VIAL SQ SCH (21:34)
[2022-10-26] MEDS: ALBUTEROL FS 2.5 MG/0.5 ML VIAL.NEB NEB SCH ×4 (00:40→20:21)
[2022-10-26] MEDS: IPRATROPIUM NEB FS 0.5 MG/2.5 ML AMPUL.NEB NEB SCH ×4 (00:40→20:21)
[2022-10-26] MEDS: BLOOD SUGAR DIAGNOSTIC 1 EACH STRIP IN SCH ×3 (05:40→21:51)
[2022-10-26] MEDS: METOCLOPRAMIDE HCL 10 MG TABLET GT SCH ×3 (05:40→21:51)
[2022-10-26] MEDS: LEVOTHYROXINE SODIUM 125 MCG TABLET GT SCH (05:40)
[2022-10-26] MEDS: INSULIN ASPART/LISPRO 100 UNIT/ML CARTRIDGE SQ PRN ×3 (05:41→21:54)
[2022-10-26 07:09] VITALS: BP 147/72
[2022-10-26] MEDS: SIROLIMUS 1 MG GT SCH (08:17)
[2022-10-26] MEDS: APIXABAN 2.5 MG TABLET GT SCH ×2 (08:17→16:34)
[2022-10-26] MEDS: ACIDOPHILUS/BULGARICUS 1 EACH TAB.CHEW GT SCH ×2 (08:17→16:34)
[2022-10-26] MEDS: JANUVIA 25 MG GT SCH (08:17)
[2022-10-26] MEDS: FERROUS SULFATE - FOR SA ONLY 330 MG/7.5 ML UDC GT SCH ×3 (08:17→16:34)
[2022-10-26] MEDS: BACLOFEN 5 MG GT SCH ×2 (08:18→16:34)
[2022-10-26] MEDS: FAMOTIDINE (20 MG) 20 MG TABLET GT SCH (08:18)
[2022-10-26] MEDS: VIT B CMPLX 3/FA/VIT C/BIOTIN 1 TAB TABLET GT SCH (08:18)
[2022-10-26] MEDS: CICLOPIROX 8% TP SCH (08:18)
[2022-10-26] MEDS: VITAMINS A AND D 56.7 GM TUBE TP SCH ×2 (08:18→21:51)
[2022-10-26] MEDS: LEVETIRACETAM 500 MG/5 ML GT SCH ×2 (08:18→21:51)
[2022-10-26] MEDS: CHOLESTYRAMINE/ASPARTAME 4 G/PKT PACKET GT SCH (08:18)
[2022-10-26] MEDS: Z GUARD REMEDY 4 OZ OINT TP SCH ×2 (08:18→21:51)
--- NOTE | 2022-10-26 11:30 | NUR ---
Intake Paperwork: This SW met with the pt.'s son, Trevon [phone] to discuss and have him complete and sign the intake paperwork: (Patient Right's Acknowledgement, Conditions of Admission, Documentation of Preferred Intensity of Care, CDPH Agreement, and Voluntary Prior Express Consent form, and An Important Message from Medicare) on 10/26/2022. Per Trevon expressed understanding and stated the pt.'s code status should remain Full Code: Maximum Treatment and CPR. This SW addressed all of the familys questions. Damage Assessor educated Trevon on advanced health care directive and conservatorship and provided him with informational packets. The patient is not oriented enough to complete Advanced Healthcare Directive. Family was receptive to information and will notify SW if they decide to file for conservatorship. SW filed signed paperwork in patient's chart.
[2022-10-26] MEDS: HYDROGEN PEROXIDE 480 ML BOTTLE TP SCH ×2 (11:32→21:09)
[2022-10-26 11:41] VITALS: BP 139/72
[2022-10-26] MEDS: DIGOXIN 0.125 MG TABLET GT SCH (13:15)
[2022-10-26] MEDS: GLUCERNA 1.2 1,000 ML BOTTLE GT PRN (17:19)
[2022-10-26 19:42] VITALS: BP 128/73
--- NOTE | 2022-10-26 21:09 | NUR ---
RT RECEIVED PT ON VENT: AC 12, Vt 500, FIO2 40%, +5. TOLERATING SETTINGS WITH AN SPO2 OF 100%. NO RESPIRATORY DISTRESS OR SOB NOTED DURING ASSESSMENT. NEB TX GIVEN AND TOLERATED. NO ADVERSE REACTIONS NOTED. SUCTIONED X2. TRACH IS PATENT AND SECURE. EMERGENCY TRACH AND AMBU ARE BEDSIDE. VENT IS PLUGGED INTO A RED OUTLET, AND ALARMS ARE ON AND AUDIBLE.
[2022-10-26] MEDS: LATANOPROST EYE DROP 0.005% 2.5 ML BOTTLE EACHEYE SCH (21:51)
[2022-10-26] MEDS: TAMSULOSIN 0.4 MG CAP.SR.24H GT SCH (21:51)
[2022-10-26] MEDS: INSULIN GLARGINE, 100 UNIT/ML CARTRIDGE SQ SCH (21:52)
[2022-10-27] MEDS: ALBUTEROL FS 2.5 MG/0.5 ML VIAL.NEB NEB SCH ×4 (01:21→20:01)
[2022-10-27] MEDS: IPRATROPIUM NEB FS 0.5 MG/2.5 ML AMPUL.NEB NEB SCH ×4 (01:21→20:01)
[2022-10-27] MEDS: BLOOD SUGAR DIAGNOSTIC 1 EACH STRIP IN SCH ×3 (05:47→21:17)
[2022-10-27] MEDS: METOCLOPRAMIDE HCL 10 MG TABLET GT SCH ×3 (05:47→21:17)
[2022-10-27] MEDS: LEVOTHYROXINE SODIUM 125 MCG TABLET GT SCH (05:47)
[2022-10-27] MEDS: INSULIN ASPART/LISPRO 100 UNIT/ML CARTRIDGE SQ PRN ×3 (05:48→21:21)
[2022-10-27 08:00] VITALS: BP 118/73
[2022-10-27 08:01] LABS: HEMOGLOBIN 8.8 g/dL (13.5-17.5)
[2022-10-27] MEDS: HYDROGEN PEROXIDE 480 ML BOTTLE TP SCH ×2 (09:00→20:01)
[2022-10-27] MEDS: VIT B CMPLX 3/FA/VIT C/BIOTIN 1 TAB TABLET GT SCH (09:07)
[2022-10-27] MEDS: JANUVIA 25 MG GT SCH (09:07)
[2022-10-27] MEDS: ACIDOPHILUS/BULGARICUS 1 EACH TAB.CHEW GT SCH ×2 (09:07→17:10)
[2022-10-27] MEDS: FERROUS SULFATE - FOR SA ONLY 330 MG/7.5 ML UDC GT SCH ×3 (09:07→17:10)
[2022-10-27] MEDS: SIROLIMUS 1 MG GT SCH (09:07)
[2022-10-27] MEDS: APIXABAN 2.5 MG TABLET GT SCH ×2 (09:07→17:09)
[2022-10-27] MEDS: FAMOTIDINE (20 MG) 20 MG TABLET GT SCH (09:08)
[2022-10-27] MEDS: CICLOPIROX 8% TP SCH (09:08)
[2022-10-27] MEDS: VITAMINS A AND D 56.7 GM TUBE TP SCH ×2 (09:08→21:18)
[2022-10-27] MEDS: LEVETIRACETAM 500 MG/5 ML GT SCH ×2 (09:08→21:17)
[2022-10-27] MEDS: Z GUARD REMEDY 4 OZ OINT TP SCH ×2 (09:08→21:18)
[2022-10-27] MEDS: CHOLESTYRAMINE/ASPARTAME 4 G/PKT PACKET GT SCH (09:08)
[2022-10-27] MEDS: BACLOFEN 5 MG GT SCH ×2 (09:08→17:10)
[2022-10-27 12:27] VITALS: BP 169/84
[2022-10-27] MEDS: DIGOXIN 0.125 MG TABLET GT SCH (12:31)
[2022-10-27 14:30] VITALS: BP 138/73
[2022-10-27] MEDS: GLUCERNA 1.2 1,000 ML BOTTLE GT PRN (15:38)
--- NOTE | 2022-10-27 16:16 | NUR ---
RECEIVED PATIENT ON MD ORDERED VENT SETTINGS. HAS A TRACH PORTEX 8 CUFFED. AIRWAY PATENT AND SECURE. INLINE HHN TXS DEONDRE WELL WITH NO ADVERSE REACTION NOTED. AMBU BAG AND EMERGENCY TRACH AT THE BEDSIDE. VENT PLUGGED INTO RED OUTLET. ALARMS SET AND AUDIBLE. SMALL YELLOW WHITE THICK SECRETIONS NOTED .
[2022-10-27] MEDS: INSULIN GLARGINE, 100 UNIT/ML CARTRIDGE SQ SCH (21:18)
[2022-10-27] MEDS: TAMSULOSIN 0.4 MG CAP.SR.24H GT SCH (21:18)
[2022-10-27] MEDS: LATANOPROST EYE DROP 0.005% 2.5 ML BOTTLE EACHEYE SCH (21:18)
[2022-10-27] MEDS: EPOETIN ALFA-EPBX 10,000 UNIT/ML VIAL SQ SCH (21:22)
[2022-10-27 21:37] VITALS: BP 128/59
[2022-10-28 00:01] VITALS: BP 147/71
[2022-10-28] MEDS: ALBUTEROL FS 2.5 MG/0.5 ML VIAL.NEB NEB SCH ×4 (01:43→19:55)
[2022-10-28] MEDS: IPRATROPIUM NEB FS 0.5 MG/2.5 ML AMPUL.NEB NEB SCH ×4 (01:43→19:55)
[2022-10-28] MEDS: LEVOTHYROXINE SODIUM 125 MCG TABLET GT SCH (05:27)
[2022-10-28] MEDS: BLOOD SUGAR DIAGNOSTIC 1 EACH STRIP IN SCH ×3 (05:27→21:16)
[2022-10-28] MEDS: METOCLOPRAMIDE HCL 10 MG TABLET GT SCH ×3 (05:27→20:17)
[2022-10-28] MEDS: INSULIN ASPART/LISPRO 100 UNIT/ML CARTRIDGE SQ PRN ×2 (05:28→21:17)
[2022-10-28 07:39] VITALS: BP 119/60
[2022-10-28] MEDS: HYDROGEN PEROXIDE 480 ML BOTTLE TP PRN (09:21)
[2022-10-28] MEDS: LEVETIRACETAM 500 MG/5 ML GT SCH ×2 (09:26→20:17)
[2022-10-28] MEDS: JANUVIA 25 MG GT SCH (09:26)
[2022-10-28] MEDS: FERROUS SULFATE - FOR SA ONLY 330 MG/7.5 ML UDC GT SCH ×3 (09:26→17:00)
[2022-10-28] MEDS: VIT B CMPLX 3/FA/VIT C/BIOTIN 1 TAB TABLET GT SCH (09:26)
[2022-10-28] MEDS: APIXABAN 2.5 MG TABLET GT SCH ×2 (09:26→17:00)
[2022-10-28] MEDS: BACLOFEN 5 MG GT SCH ×2 (09:26→17:00)
[2022-10-28] MEDS: FAMOTIDINE (20 MG) 20 MG TABLET GT SCH (09:26)
[2022-10-28] MEDS: CHOLESTYRAMINE/ASPARTAME 4 G/PKT PACKET GT SCH (09:26)
[2022-10-28] MEDS: ACIDOPHILUS/BULGARICUS 1 EACH TAB.CHEW GT SCH ×2 (09:26→17:00)
[2022-10-28] MEDS: SIROLIMUS 1 MG GT SCH (09:26)
[2022-10-28] MEDS: VITAMINS A AND D 56.7 GM TUBE TP SCH ×2 (09:27→20:17)
[2022-10-28] MEDS: CICLOPIROX 8% TP SCH (09:27)
[2022-10-28] MEDS: Z GUARD REMEDY 4 OZ OINT TP SCH ×2 (09:27→20:17)
[2022-10-28] MEDS: HYDROGEN PEROXIDE 480 ML BOTTLE TP SCH ×2 (10:30→19:55)
[2022-10-28] MEDS: DIGOXIN 0.125 MG TABLET GT SCH (12:55)
[2022-10-28] MEDS: GLUCERNA 1.2 1,000 ML BOTTLE GT PRN (13:34)
[2022-10-28 14:27] VITALS: BP 125/74
[2022-10-28 18:55] VITALS: BP 159/74
[2022-10-28] MEDS: LATANOPROST EYE DROP 0.005% 2.5 ML BOTTLE EACHEYE SCH (21:16)
[2022-10-28] MEDS: TAMSULOSIN 0.4 MG CAP.SR.24H GT SCH (21:16)
[2022-10-28] MEDS: INSULIN GLARGINE, 100 UNIT/ML CARTRIDGE SQ SCH (21:17)
[2022-10-29 00:20] VITALS: BP 130/76
[2022-10-29] MEDS: ALBUTEROL FS 2.5 MG/0.5 ML VIAL.NEB NEB SCH ×4 (01:47→19:02)
[2022-10-29] MEDS: IPRATROPIUM NEB FS 0.5 MG/2.5 ML AMPUL.NEB NEB SCH ×4 (01:47→19:02)
[2022-10-29] MEDS: METOCLOPRAMIDE HCL 10 MG TABLET GT SCH ×3 (05:29→20:39)
[2022-10-29] MEDS: BLOOD SUGAR DIAGNOSTIC 1 EACH STRIP IN SCH ×3 (05:30→20:58)
[2022-10-29] MEDS: INSULIN ASPART/LISPRO 100 UNIT/ML CARTRIDGE SQ PRN ×3 (05:30→20:58)
[2022-10-29] MEDS: LEVOTHYROXINE SODIUM 125 MCG TABLET GT SCH (05:30)
[2022-10-29 06:51] LABS: HEMOGLOBIN 8.3 g/dL (13.5-17.5)
[2022-10-29 07:21] VITALS: BP 117/58
[2022-10-29] MEDS: CHOLESTYRAMINE/ASPARTAME 4 G/PKT PACKET GT SCH (08:37)
[2022-10-29] MEDS: HYDROGEN PEROXIDE 480 ML BOTTLE TP SCH ×2 (09:17→20:33)
[2022-10-29] MEDS: VITAMINS A AND D 56.7 GM TUBE TP SCH ×2 (09:59→20:39)
[2022-10-29] MEDS: CICLOPIROX 8% TP SCH (09:59)
[2022-10-29] MEDS: APIXABAN 2.5 MG TABLET GT SCH ×2 (09:59→16:28)
[2022-10-29] MEDS: VIT B CMPLX 3/FA/VIT C/BIOTIN 1 TAB TABLET GT SCH (09:59)
[2022-10-29] MEDS: JANUVIA 25 MG GT SCH (09:59)
[2022-10-29] MEDS: FAMOTIDINE (20 MG) 20 MG TABLET GT SCH (09:59)
[2022-10-29] MEDS: FERROUS SULFATE - FOR SA ONLY 330 MG/7.5 ML UDC GT SCH ×3 (09:59→16:28)
[2022-10-29] MEDS: Z GUARD REMEDY 4 OZ OINT TP SCH ×2 (09:59→20:39)
[2022-10-29] MEDS: SIROLIMUS 1 MG GT SCH (09:59)
[2022-10-29] MEDS: LEVETIRACETAM 500 MG/5 ML GT SCH ×2 (09:59→20:39)
[2022-10-29] MEDS: ACIDOPHILUS/BULGARICUS 1 EACH TAB.CHEW GT SCH ×2 (09:59→16:28)
[2022-10-29] MEDS: BACLOFEN 5 MG GT SCH ×2 (09:59→16:28)
[2022-10-29 11:12] VITALS: BP 125/57
[2022-10-29] MEDS: DIGOXIN 0.125 MG TABLET GT SCH (13:00)
[2022-10-29 19:17] VITALS: BP 126/72
[2022-10-29] MEDS: EPOETIN ALFA-EPBX 10,000 UNIT/ML VIAL SQ SCH (20:39)
[2022-10-29] MEDS: TAMSULOSIN 0.4 MG CAP.SR.24H GT SCH (21:05)
[2022-10-29] MEDS: INSULIN GLARGINE, 100 UNIT/ML CARTRIDGE SQ SCH (21:05)
[2022-10-29] MEDS: LATANOPROST EYE DROP 0.005% 2.5 ML BOTTLE EACHEYE SCH (21:05)
[2022-10-30] MEDS: ALBUTEROL FS 2.5 MG/0.5 ML VIAL.NEB NEB SCH ×4 (00:43→20:03)
[2022-10-30] MEDS: IPRATROPIUM NEB FS 0.5 MG/2.5 ML AMPUL.NEB NEB SCH ×4 (00:43→20:03)
[2022-10-30 00:47] VITALS: BP 132/70
[2022-10-30] MEDS: GLUCERNA 1.2 1,000 ML BOTTLE GT PRN ×2 (05:06→18:35)
[2022-10-30] MEDS: METOCLOPRAMIDE HCL 10 MG TABLET GT SCH ×3 (05:06→20:36)
[2022-10-30] MEDS: LEVOTHYROXINE SODIUM 125 MCG TABLET GT SCH (05:06)
[2022-10-30] MEDS: INSULIN ASPART/LISPRO 100 UNIT/ML CARTRIDGE SQ PRN ×3 (05:27→21:26)
[2022-10-30] MEDS: BLOOD SUGAR DIAGNOSTIC 1 EACH STRIP IN SCH ×3 (05:27→21:25)
[2022-10-30 07:51] VITALS: BP 134/68
[2022-10-30] MEDS: CICLOPIROX 8% TP SCH (09:00)
[2022-10-30] MEDS: LEVETIRACETAM 500 MG/5 ML GT SCH ×2 (09:23→20:36)
[2022-10-30] MEDS: FERROUS SULFATE - FOR SA ONLY 330 MG/7.5 ML UDC GT SCH ×3 (09:23→16:48)
[2022-10-30] MEDS: CHOLESTYRAMINE/ASPARTAME 4 G/PKT PACKET GT SCH (09:23)
[2022-10-30] MEDS: JANUVIA 25 MG GT SCH (09:24)
[2022-10-30] MEDS: APIXABAN 2.5 MG TABLET GT SCH ×2 (09:24→16:48)
[2022-10-30] MEDS: VITAMINS A AND D 56.7 GM TUBE TP SCH ×2 (09:25→20:36)
[2022-10-30] MEDS: ACIDOPHILUS/BULGARICUS 1 EACH TAB.CHEW GT SCH ×2 (09:25→16:49)
[2022-10-30] MEDS: FAMOTIDINE (20 MG) 20 MG TABLET GT SCH (09:25)
[2022-10-30] MEDS: BACLOFEN 5 MG GT SCH ×2 (09:25→16:49)
[2022-10-30] MEDS: SIROLIMUS 1 MG GT SCH (09:25)
[2022-10-30] MEDS: Z GUARD REMEDY 4 OZ OINT TP SCH ×2 (09:25→20:36)
[2022-10-30] MEDS: HYDROGEN PEROXIDE 480 ML BOTTLE TP SCH ×2 (09:26→20:03)
[2022-10-30] MEDS: VIT B CMPLX 3/FA/VIT C/BIOTIN 1 TAB TABLET GT SCH (09:27)
[2022-10-30 12:00] VITALS: BP 108/62
[2022-10-30] MEDS: DIGOXIN 0.125 MG TABLET GT SCH (12:57)
[2022-10-30 18:57] VITALS: BP 125/75
[2022-10-30] MEDS: LATANOPROST EYE DROP 0.005% 2.5 ML BOTTLE EACHEYE SCH (21:04)
[2022-10-30] MEDS: TAMSULOSIN 0.4 MG CAP.SR.24H GT SCH (21:04)
[2022-10-30] MEDS: INSULIN GLARGINE, 100 UNIT/ML CARTRIDGE SQ SCH (21:25)
[2022-10-30 23:37] VITALS: BP 139/79
[2022-10-31] MEDS: ALBUTEROL FS 2.5 MG/0.5 ML VIAL.NEB NEB SCH ×4 (01:48→19:57)
[2022-10-31] MEDS: IPRATROPIUM NEB FS 0.5 MG/2.5 ML AMPUL.NEB NEB SCH ×4 (01:48→19:57)
[2022-10-31] MEDS: BLOOD SUGAR DIAGNOSTIC 1 EACH STRIP IN SCH ×3 (05:26→21:35)
[2022-10-31] MEDS: LEVOTHYROXINE SODIUM 125 MCG TABLET GT SCH (05:26)
[2022-10-31] MEDS: METOCLOPRAMIDE HCL 10 MG TABLET GT SCH ×3 (05:26→20:48)
[2022-10-31] MEDS: INSULIN ASPART/LISPRO 100 UNIT/ML CARTRIDGE SQ PRN ×2 (05:27→13:28)
--- NOTE | 2022-10-31 06:30 | NUR ---
RN NOTES PATIENT IN BED, AWAKE. AFEBRILE WITH NO S/S OF DISTRESS OBSERVED. TESTED FOR COVID RAPID ANTIGEN FOR EXPOSURE, RESULTED NEGATIVE. FAMILY NOTIFIED. NO S/S OF PAIN/DISCOMFORT SEEN. WILL CONTINUE TO MONITOR.
[2022-10-31 08:04] VITALS: BP 136/96
[2022-10-31] MEDS: HYDROGEN PEROXIDE 480 ML BOTTLE TP SCH ×2 (08:27→19:57)
[2022-10-31] MEDS: VIT B CMPLX 3/FA/VIT C/BIOTIN 1 TAB TABLET GT SCH (09:00)
[2022-10-31] MEDS: FERROUS SULFATE - FOR SA ONLY 330 MG/7.5 ML UDC GT SCH ×3 (09:00→16:44)
[2022-10-31] MEDS: JANUVIA 25 MG GT SCH (09:00)
[2022-10-31] MEDS: BACLOFEN 5 MG GT SCH ×2 (09:00→16:44)
[2022-10-31] MEDS: FAMOTIDINE (20 MG) 20 MG TABLET GT SCH (09:00)
[2022-10-31] MEDS: SIROLIMUS 1 MG GT SCH (09:00)
[2022-10-31] MEDS: APIXABAN 2.5 MG TABLET GT SCH ×2 (09:00→16:44)
[2022-10-31] MEDS: LEVETIRACETAM 500 MG/5 ML GT SCH ×2 (09:00→20:48)
[2022-10-31] MEDS: CHOLESTYRAMINE/ASPARTAME 4 G/PKT PACKET GT SCH (09:00)
[2022-10-31] MEDS: Z GUARD REMEDY 4 OZ OINT TP SCH ×2 (09:00→20:49)
[2022-10-31] MEDS: CICLOPIROX 8% TP SCH (09:00)
[2022-10-31] MEDS: VITAMINS A AND D 56.7 GM TUBE TP SCH ×2 (09:00→20:49)
[2022-10-31] MEDS: ACIDOPHILUS/BULGARICUS 1 EACH TAB.CHEW GT SCH ×2 (09:00→16:44)
--- NOTE | 2022-10-31 11:00 | NUR ---
PCR test done and sent to lab, test done due to Covid 19 exposure.
[2022-10-31 13:02] VITALS: BP 124/60
[2022-10-31] MEDS: DIGOXIN 0.125 MG TABLET GT SCH (13:24)
[2022-10-31] MEDS: GLUCERNA 1.2 1,000 ML BOTTLE GT PRN (18:52)
[2022-10-31 19:17] VITALS: BP 129/66
[2022-10-31] MEDS: LATANOPROST EYE DROP 0.005% 2.5 ML BOTTLE EACHEYE SCH (21:35)
[2022-10-31] MEDS: TAMSULOSIN 0.4 MG CAP.SR.24H GT SCH (21:35)
[2022-10-31] MEDS: INSULIN GLARGINE, 100 UNIT/ML CARTRIDGE SQ SCH (21:36)
[2022-11-01] MEDS: IPRATROPIUM NEB FS 0.5 MG/2.5 ML AMPUL.NEB NEB SCH ×4 (01:58→20:03)
[2022-11-01] MEDS: ALBUTEROL FS 2.5 MG/0.5 ML VIAL.NEB NEB SCH ×4 (01:58→20:04)
[2022-11-01] MEDS: LEVOTHYROXINE SODIUM 125 MCG TABLET GT SCH (05:40)
[2022-11-01] MEDS: BLOOD SUGAR DIAGNOSTIC 1 EACH STRIP IN SCH ×3 (05:40→21:19)
[2022-11-01] MEDS: METOCLOPRAMIDE HCL 10 MG TABLET GT SCH ×3 (05:40→20:50)
[2022-11-01 06:45] LABS: BASOPHILS % (AUTO) 0.1 % (0.0-2.0); EOSINOPHILS % (AUTO) 0.7 % (0.0-6.0); HEMATOCRIT 29 % (39-51); LYMPHOCYTES # (AUTO) 0.6 K/uL (0.8-4.8); LYMPHOCYTES % (AUTO) 8.9 % (20.0-44.0); MEAN CORPUSCULAR HGB CONC 31 g/dl (31.0-36.0); MEAN CORPUSCULAR VOLUME 92 fL (80-96); MONOCYTES # (AUTO) 0.8 K/uL (0.1-1.30); MONOCYTES % (AUTO) 12.5 % (2.0-12.0); NEUTROPHILS # (AUTO) 5.1 K/uL (1.8-8.9); NEUTROPHILS % (AUTO) 77.8 % (43.0-81.0); PLATELET COUNT (AUTO) 133 K/uL (150-450); RED BLOOD CELL COUNT(AUTO) 3.12 MIL/uL (4.5-6.0); WHITE BLOOD COUNT (AUTO) 6.5 K/uL (4.3-11.0)
[2022-11-01 07:48] LABS: CALCIUM, SERUM 9.9 mg/dL (8.5-10.1); CARBON DIOXIDE 30 mmol/L (21-32); CHLORIDE 92 mmol/L (98-107); CREATININE 2.1 mg/dL (0.6-1.3); GLUCOSE 110 mg/dL (74-106); MAGNESIUM 2.6 mg/dL (1.8-2.4); POTASSIUM 4.4 mmol/L (3.5-5.1); SODIUM SERUM 129 mmol/L (136-145); UREA NITROGEN, BLOOD 57 mg/dL (7-18)
[2022-11-01 07:56] VITALS: BP 151/78
[2022-11-01] MEDS: HYDROGEN PEROXIDE 480 ML BOTTLE TP SCH ×2 (07:56→20:04)
[2022-11-01] MEDS: FERROUS SULFATE - FOR SA ONLY 330 MG/7.5 ML UDC GT SCH ×3 (09:00→17:25)
[2022-11-01] MEDS: SIROLIMUS 1 MG GT SCH (09:00)
[2022-11-01] MEDS: VIT B CMPLX 3/FA/VIT C/BIOTIN 1 TAB TABLET GT SCH (09:00)
[2022-11-01] MEDS: VITAMINS A AND D 56.7 GM TUBE TP SCH ×2 (09:00→20:56)
[2022-11-01] MEDS: CICLOPIROX 8% TP SCH (09:00)
[2022-11-01] MEDS: FAMOTIDINE (20 MG) 20 MG TABLET GT SCH (09:00)
[2022-11-01] MEDS: LEVETIRACETAM 500 MG/5 ML GT SCH ×2 (09:00→20:50)
[2022-11-01] MEDS: APIXABAN 2.5 MG TABLET GT SCH ×2 (09:00→17:25)
[2022-11-01] MEDS: Z GUARD REMEDY 4 OZ OINT TP SCH ×2 (09:00→20:56)
[2022-11-01] MEDS: CHOLESTYRAMINE/ASPARTAME 4 G/PKT PACKET GT SCH (09:00)
[2022-11-01] MEDS: ACIDOPHILUS/BULGARICUS 1 EACH TAB.CHEW GT SCH ×2 (09:00→17:25)
[2022-11-01] MEDS: BACLOFEN 5 MG GT SCH ×2 (09:00→17:26)
[2022-11-01] MEDS: JANUVIA 25 MG GT SCH (09:00)
[2022-11-01] MEDS: IV NS 0.9% 1,000 ML IV PRN (11:08)
--- NOTE | 2022-11-01 11:14 | NUR ---
Dr Mak aware of lab results. He ordered to give NS at 100 mL/hr IV x 2 liters and repeat labs in AM. Notified
[2022-11-01 12:07] VITALS: BP 148/72
[2022-11-01] MEDS: GLUCERNA 1.2 1,000 ML BOTTLE GT PRN (12:15)
[2022-11-01] MEDS: DIGOXIN 0.125 MG TABLET GT SCH (13:03)
[2022-11-01] MEDS: INSULIN ASPART/LISPRO 100 UNIT/ML CARTRIDGE SQ PRN (13:04)
--- NOTE | 2022-11-01 13:52 | NUR ---
Pt was tested for Covid using the Flowflex antigen test and result came back negative. Pt asymptomatic for Covid.
[2022-11-01] MEDS ORDERED: IV NS 0.9% 1,000 ML IV SCH (16:00)
--- NOTE | 2022-11-01 16:33 | NUR ---
Facility Update: DELMI emailed the pt.'s son, Trevon and notified them that, "As of 10/31/2022 Two Sub-Acute residents and 1 staff member tested positive for COVID-19 SO continues to following [facility] Department of Public Healths infection control guidelines. SO will continue response testing and screening for symptoms of Residents and staff." DELMI attached latest visitation guidelines and encouraged families to receive latest booster.
[2022-11-01 20:23] VITALS: BP 175/85
[2022-11-01] MEDS: EPOETIN ALFA-EPBX 10,000 UNIT/ML VIAL SQ SCH (20:56)
[2022-11-01] MEDS: LATANOPROST EYE DROP 0.005% 2.5 ML BOTTLE EACHEYE SCH (21:06)
[2022-11-01] MEDS: TAMSULOSIN 0.4 MG CAP.SR.24H GT SCH (21:06)
[2022-11-01] MEDS: INSULIN GLARGINE, 100 UNIT/ML CARTRIDGE SQ SCH (21:20)
[2022-11-02] MEDS: IPRATROPIUM NEB FS 0.5 MG/2.5 ML AMPUL.NEB NEB SCH ×4 (01:38→19:38)
[2022-11-02] MEDS: ALBUTEROL FS 2.5 MG/0.5 ML VIAL.NEB NEB SCH ×4 (01:38→19:38)
[2022-11-02] MEDS: GLUCERNA 1.2 1,000 ML BOTTLE GT PRN (03:25)
[2022-11-02] MEDS: METOCLOPRAMIDE HCL 10 MG TABLET GT SCH ×3 (05:21→20:39)
[2022-11-02] MEDS: BLOOD SUGAR DIAGNOSTIC 1 EACH STRIP IN SCH ×3 (05:21→21:28)
[2022-11-02] MEDS: LEVOTHYROXINE SODIUM 125 MCG TABLET GT SCH (05:21)
[2022-11-02 07:06] LABS: BASOPHILS % (AUTO) 0.1 % (0.0-2.0); EOSINOPHILS % (AUTO) 0.4 % (0.0-6.0); HEMATOCRIT 30 % (39-51); HEMOGLOBIN 9.1 g/dL (13.5-17.5); LYMPHOCYTES % (AUTO) 7.2 % (20.0-44.0); MEAN CORPUSCULAR HGB CONC 30 g/dl (31.0-36.0); MEAN CORPUSCULAR VOLUME 92 fL (80-96); MONOCYTES % (AUTO) 9.8 % (2.0-12.0); NEUTROPHILS % (AUTO) 82.5 % (43.0-81.0); PLATELET COUNT (AUTO) 147 K/uL (150-450); RED BLOOD CELL COUNT(AUTO) 3.28 MIL/uL (4.5-6.0)
[2022-11-02 07:07] LABS: LYMPHOCYTES # (AUTO) 0.6 K/uL (0.8-4.8); MONOCYTES # (AUTO) 0.8 K/uL (0.1-1.30); NEUTROPHILS # (AUTO) 6.6 K/uL (1.8-8.9)
[2022-11-02 07:31] LABS: CALCIUM, SERUM 9.9 mg/dL (8.5-10.1); CARBON DIOXIDE 30 mmol/L (21-32); CHLORIDE 93 mmol/L (98-107); CREATININE 1.8 mg/dL (0.6-1.3); GLUCOSE 121 mg/dL (74-106); MAGNESIUM 2.3 mg/dL (1.8-2.4); PHOSPHORUS 4.7 mg/dL (2.5-4.9); POTASSIUM 3.9 mmol/L (3.5-5.1); SODIUM SERUM 129 mmol/L (136-145); UREA NITROGEN, BLOOD 48 mg/dL (7-18)
[2022-11-02 07:42] VITALS: BP 158/98
[2022-11-02] MEDS: IV NS 0.9% 1,000 ML IV PRN (08:49)
[2022-11-02] MEDS: HYDROGEN PEROXIDE 480 ML BOTTLE TP SCH ×2 (08:50→19:54)
[2022-11-02] MEDS: FERROUS SULFATE - FOR SA ONLY 330 MG/7.5 ML UDC GT SCH ×3 (09:00→16:49)
[2022-11-02] MEDS: CHOLESTYRAMINE/ASPARTAME 4 G/PKT PACKET GT SCH (09:00)
[2022-11-02] MEDS: APIXABAN 2.5 MG TABLET GT SCH ×2 (09:00→16:46)
[2022-11-02] MEDS: BACLOFEN 5 MG GT SCH ×2 (09:00→16:48)
[2022-11-02] MEDS: LEVETIRACETAM 500 MG/5 ML GT SCH ×2 (09:00→20:39)
[2022-11-02] MEDS: JANUVIA 25 MG GT SCH (09:00)
[2022-11-02] MEDS: FAMOTIDINE (20 MG) 20 MG TABLET GT SCH (09:00)
[2022-11-02] MEDS: ACIDOPHILUS/BULGARICUS 1 EACH TAB.CHEW GT SCH ×2 (09:00→16:48)
[2022-11-02] MEDS: SIROLIMUS 1 MG GT SCH (09:00)
[2022-11-02] MEDS: CICLOPIROX 8% TP SCH (09:33)
[2022-11-02] MEDS: Z GUARD REMEDY 4 OZ OINT TP SCH ×2 (09:33→20:39)
[2022-11-02] MEDS: VITAMINS A AND D 56.7 GM TUBE TP SCH ×2 (09:33→20:39)
[2022-11-02] MEDS: VIT B CMPLX 3/FA/VIT C/BIOTIN 1 TAB TABLET GT SCH (10:17)
[2022-11-02 11:35] VITALS: BP 164/105
[2022-11-02] MEDS: DIGOXIN 0.125 MG TABLET GT SCH (12:11)
[2022-11-02 12:54] VITALS: BP 129/68
--- NOTE | 2022-11-02 16:05 | NUR ---
Pt had a temp of 100 F, HR 93. Tylenol was given. Tested pt for Covid using the Flowflex antigen test and result came back negative. Notified TRAFFIC ENGINEER Nadine Taylor. Pt's son aware.
--- NOTE | 2022-11-02 16:25 | NUR ---
LENKA Taylor ordered to do CXR. Notified
--- NOTE | 2022-11-02 16:33 | NUR ---
Facility Update: DELMI emailed the pt.'s son, Trevon and notified them that, "As of today 1 new staff member tested positive for COVID-19 SO continues to following [facility] Department of Public Healths infection control guidelines. SO will continue response testing and screening for symptoms of Residents and staff." DELMI attached latest visitation guidelines and encouraged families to receive latest booster.
--- NOTE | 2022-11-02 18:47 | NUR ---
Notified Trevon that pt's current roommate tested positive for Covid.
[2022-11-02 20:00] VITALS: BP 145/73
[2022-11-02] MEDS: LATANOPROST EYE DROP 0.005% 2.5 ML BOTTLE EACHEYE SCH (21:13)
[2022-11-02] MEDS: TAMSULOSIN 0.4 MG CAP.SR.24H GT SCH (21:13)
[2022-11-02] MEDS: INSULIN GLARGINE, 100 UNIT/ML CARTRIDGE SQ SCH (21:28)
[2022-11-03] MEDS: IPRATROPIUM NEB FS 0.5 MG/2.5 ML AMPUL.NEB NEB SCH ×4 (02:19→20:08)
[2022-11-03] MEDS: ALBUTEROL FS 2.5 MG/0.5 ML VIAL.NEB NEB SCH ×4 (02:19→20:08)
[2022-11-03] MEDS: BLOOD SUGAR DIAGNOSTIC 1 EACH STRIP IN SCH ×3 (05:50→21:25)
[2022-11-03] MEDS: LEVOTHYROXINE SODIUM 125 MCG TABLET GT SCH (05:50)
[2022-11-03] MEDS: METOCLOPRAMIDE HCL 10 MG TABLET GT SCH ×3 (05:50→21:25)
[2022-11-03 06:35] LABS: HEMOGLOBIN 9.5 g/dL (13.5-17.5)
[2022-11-03 07:35] VITALS: BP 149/76
[2022-11-03] MEDS: FAMOTIDINE (20 MG) 20 MG TABLET GT SCH (09:00)
[2022-11-03] MEDS: VITAMINS A AND D 56.7 GM TUBE TP SCH ×2 (09:00→21:26)
[2022-11-03] MEDS: CICLOPIROX 8% TP SCH (09:00)
[2022-11-03] MEDS: BACLOFEN 5 MG GT SCH ×2 (09:00→17:32)
[2022-11-03] MEDS: Z GUARD REMEDY 4 OZ OINT TP SCH ×2 (09:00→21:26)
[2022-11-03] MEDS: CHOLESTYRAMINE/ASPARTAME 4 G/PKT PACKET GT SCH (09:00)
[2022-11-03] MEDS: HYDROGEN PEROXIDE 480 ML BOTTLE TP SCH ×2 (09:34→20:08)
[2022-11-03] MEDS: JANUVIA 25 MG GT SCH (09:59)
[2022-11-03] MEDS: APIXABAN 2.5 MG TABLET GT SCH ×2 (09:59→17:31)
[2022-11-03] MEDS: ACIDOPHILUS/BULGARICUS 1 EACH TAB.CHEW GT SCH ×2 (09:59→17:32)
[2022-11-03] MEDS: VIT B CMPLX 3/FA/VIT C/BIOTIN 1 TAB TABLET GT SCH (09:59)
[2022-11-03] MEDS: SIROLIMUS 1 MG GT SCH (09:59)
[2022-11-03] MEDS: FERROUS SULFATE - FOR SA ONLY 330 MG/7.5 ML UDC GT SCH ×3 (09:59→17:31)
[2022-11-03] MEDS: LEVETIRACETAM 500 MG/5 ML GT SCH ×2 (09:59→21:25)
[2022-11-03 11:50] VITALS: BP 139/76
[2022-11-03] MEDS: DIGOXIN 0.125 MG TABLET GT SCH (13:27)
[2022-11-03] MEDS: INSULIN ASPART/LISPRO 100 UNIT/ML CARTRIDGE SQ PRN ×2 (13:31→21:27)
[2022-11-03 20:00] VITALS: BP 141/73
[2022-11-03] MEDS: EPOETIN ALFA-EPBX 10,000 UNIT/ML VIAL SQ SCH (21:25)
[2022-11-03] MEDS: TAMSULOSIN 0.4 MG CAP.SR.24H GT SCH (21:26)
[2022-11-03] MEDS: LATANOPROST EYE DROP 0.005% 2.5 ML BOTTLE EACHEYE SCH (21:26)
[2022-11-03] MEDS: INSULIN GLARGINE, 100 UNIT/ML CARTRIDGE SQ SCH (21:27)
[2022-11-04] MEDS: GLUCERNA 1.2 1,000 ML BOTTLE GT PRN (01:00)
[2022-11-04] MEDS: IPRATROPIUM NEB FS 0.5 MG/2.5 ML AMPUL.NEB NEB SCH ×4 (02:07→19:51)
[2022-11-04] MEDS: ALBUTEROL FS 2.5 MG/0.5 ML VIAL.NEB NEB SCH ×4 (02:07→19:51)
[2022-11-04] MEDS: METOCLOPRAMIDE HCL 10 MG TABLET GT SCH ×3 (04:47→21:50)
[2022-11-04] MEDS: BLOOD SUGAR DIAGNOSTIC 1 EACH STRIP IN SCH ×3 (05:33→21:50)
[2022-11-04] MEDS: LEVOTHYROXINE SODIUM 125 MCG TABLET GT SCH (05:33)
[2022-11-04] MEDS: INSULIN ASPART/LISPRO 100 UNIT/ML CARTRIDGE SQ PRN ×3 (05:34→21:52)
--- NOTE | 2022-11-04 06:24 | NUR ---
Patient with on and off productive cough,increased in yellow secretions,suctioning provided as needed. Noted with slight swelling of scrotum ,elevated and edema on right hand +2 elevated with pillow as tolerated. Patient temp 98.6,on 40% Fio2,no distress. Will continue to monitor.
[2022-11-04 08:00] VITALS: BP 176/92
[2022-11-04] MEDS: CICLOPIROX 8% TP SCH (08:29)
[2022-11-04] MEDS: FAMOTIDINE (20 MG) 20 MG TABLET GT SCH (08:29)
[2022-11-04] MEDS: FERROUS SULFATE - FOR SA ONLY 330 MG/7.5 ML UDC GT SCH ×3 (08:29→16:42)
[2022-11-04] MEDS: JANUVIA 25 MG GT SCH (08:29)
[2022-11-04] MEDS: SIROLIMUS 1 MG GT SCH (08:29)
[2022-11-04] MEDS: LEVETIRACETAM 500 MG/5 ML GT SCH ×2 (08:29→21:50)
[2022-11-04] MEDS: ACIDOPHILUS/BULGARICUS 1 EACH TAB.CHEW GT SCH ×2 (08:29→16:42)
[2022-11-04] MEDS: VIT B CMPLX 3/FA/VIT C/BIOTIN 1 TAB TABLET GT SCH (08:29)
[2022-11-04] MEDS: APIXABAN 2.5 MG TABLET GT SCH ×2 (08:29→16:42)
[2022-11-04] MEDS: Z GUARD REMEDY 4 OZ OINT TP SCH ×2 (08:29→21:50)
[2022-11-04] MEDS: BACLOFEN 5 MG GT SCH ×2 (08:29→16:42)
[2022-11-04] MEDS: CHOLESTYRAMINE/ASPARTAME 4 G/PKT PACKET GT SCH (08:29)
[2022-11-04] MEDS: VITAMINS A AND D 56.7 GM TUBE TP SCH ×2 (08:29→21:50)
[2022-11-04 08:51] LABS: BASOPHILS % (AUTO) 0.2 % (0.0-2.0); EOSINOPHILS % (AUTO) 0.5 % (0.0-6.0); HEMATOCRIT 33 % (39-51); HEMOGLOBIN 9.7 g/dL (13.5-17.5); LYMPHOCYTES # (AUTO) 0.9 K/uL (0.8-4.8); LYMPHOCYTES % (AUTO) 12.3 % (20.0-44.0); MEAN CORPUSCULAR HGB CONC 30 g/dl (31.0-36.0); MEAN CORPUSCULAR VOLUME 93 fL (80-96); MONOCYTES # (AUTO) 0.9 K/uL (0.1-1.30); NEUTROPHILS # (AUTO) 5.9 K/uL (1.8-8.9); PLATELET COUNT (AUTO) 124 K/uL (150-450); RED BLOOD CELL COUNT(AUTO) 3.52 MIL/uL (4.5-6.0); WHITE BLOOD COUNT (AUTO) 7.7 K/uL (4.3-11.0)
--- NOTE | 2022-11-04 09:10 | NUR ---
Relayed CXR result to LENKA Taylor.
[2022-11-04] MEDS: HYDROGEN PEROXIDE 480 ML BOTTLE TP SCH ×2 (09:13→19:51)
--- NOTE | 2022-11-04 10:49 | NUR ---
RT NOTE RECEIVED PT ON CURRENT MD ORDERED VENT SETTINGS. NO RESP. DISTRESS OR SOB NOTED DURING ASSESSMENT. B/U TRACH AT BEDSIDE. AMBU BAG AT BEDSIDE. SX'ED PRN. TX GIVEN. NO ADVERSE REACTIONS NOTED. ALARMS ON AND AUDIBLE. VENT PLUGGED IN RED OUTLET. .
[2022-11-04 12:00] VITALS: BP 166/93
[2022-11-04] MEDS: DIGOXIN 0.125 MG TABLET GT SCH (12:12)
--- NOTE | 2022-11-04 12:45 | NUR ---
Seen by Dr Fritz. Pt has edema on the hands and scrotum. He ordered Lasix 20 mg GT daily for 7 days for edema. Notified
--- NOTE | 2022-11-04 14:30 | NUR ---
Seen by LENKA Taylor earlier today, she said she will have Dr Alicea see pt's CXR. LENKA Taylor said Dr Alicea ordered influenza swab, sputum culture, Vancomycin 1 gm IV x 1 dose, Zosyn IV pharmacy to dose for 7 days for pneumonitis. Notified
[2022-11-04] MEDS ORDERED: VANCOMYCIN 1 GM in IV D5W 250ml IV ONE (15:00)
--- NOTE | 2022-11-04 16:15 | NUR ---
Informed SUPERINTENDENT WAREHOUSE Nadine Taylor that pt is a hard stick. She ordered a midline catheter insertion. Pt's son Trevon agreed. Notified nursing supervisor joiners Allyson. Also received order to give Zosyn 2.25 gm IV q 6 hours for 7 days for pneumonitis.
--- NOTE | 2022-11-04 18:15 | NUR ---
Nursing boiler house supervisor Allyson said that none of the midline nurses have answered her call to place a midline catheter on the pt. Charge nurse will attempt to start a peripheral IV again. Notified SENIOR RESEARCH ANALYST Nadine Taylor.
--- NOTE | 2022-11-04 19:15 | NUR ---
Notified LENKA Taylor that a peripheral IV line was started on the right wrist with a G 24, pt will still need a midline catheter. Started infusing Vancomycin 1 gm IV.
[2022-11-04 19:30] VITALS: BP 144/99
[2022-11-04] MEDS: LATANOPROST EYE DROP 0.005% 2.5 ML BOTTLE EACHEYE SCH (21:51)
[2022-11-04] MEDS: TAMSULOSIN 0.4 MG CAP.SR.24H GT SCH (21:51)
[2022-11-04 21:52] LABS: BILIRUBIN,URINE NEGATIVE (NEGATIVE); COLOR,URINE YELLOW (YELLOW); LEUKOCYTE ESTERASE ,URINE NEGATIVE (NEGATIVE); NITRITE, URINE NEGATIVE (NEGATIVE); PROTEIN,URINE 3+ mg/dl (NEGATIVE); UGLUCOSE TRACE mg/dL (NEGATIVE); UROBILINOGEN,URINE 0.2 EU/dL (0.2)
[2022-11-04] MEDS: INSULIN GLARGINE, 100 UNIT/ML CARTRIDGE SQ SCH (21:52)
[2022-11-04 22:04] LABS: BACTERIA,URINE None seen /HPF (None Seen); WBC,URINE 0-2 /HPF (0-3)
[2022-11-04 22:05] LABS: SQUAMOUS EPITHELIAL CELL,UR 0-2 /HPF (None Seen)
[2022-11-04] MEDS: ACETAMINOPHEN 650 MG/20 ML UDC- SA PATIENTS-PAIN ONLY GT PRN (22:29)
[2022-11-05 00:23] VITALS: BP 122/63
[2022-11-05] MEDS: IPRATROPIUM NEB FS 0.5 MG/2.5 ML AMPUL.NEB NEB SCH ×4 (01:42→20:23)
[2022-11-05] MEDS: ALBUTEROL FS 2.5 MG/0.5 ML VIAL.NEB NEB SCH ×4 (01:42→20:23)
[2022-11-05] MEDS: BLOOD SUGAR DIAGNOSTIC 1 EACH STRIP IN SCH ×3 (05:50→21:16)
[2022-11-05] MEDS: LEVOTHYROXINE SODIUM 125 MCG TABLET GT SCH (05:50)
[2022-11-05] MEDS: METOCLOPRAMIDE HCL 10 MG TABLET GT SCH ×3 (05:50→21:16)
[2022-11-05] MEDS: ZOSYN IVPB 2.25 G in IV D5W 50ml IV SCH ×3 (05:51)
[2022-11-05] MEDS: INSULIN ASPART/LISPRO 100 UNIT/ML CARTRIDGE SQ PRN ×3 (05:52→21:19)
[2022-11-05] MEDS: HYDROGEN PEROXIDE 480 ML BOTTLE TP SCH ×2 (09:00→20:23)
[2022-11-05] MEDS: ACIDOPHILUS/BULGARICUS 1 EACH TAB.CHEW GT SCH ×2 (09:00→17:11)
[2022-11-05] MEDS: BACLOFEN 5 MG GT SCH ×2 (09:00→17:11)
[2022-11-05] MEDS: VIT B CMPLX 3/FA/VIT C/BIOTIN 1 TAB TABLET GT SCH (09:00)
[2022-11-05] MEDS: SIROLIMUS 1 MG GT SCH (09:00)
[2022-11-05] MEDS: JANUVIA 25 MG GT SCH (09:00)
[2022-11-05] MEDS: CICLOPIROX 8% TP SCH (09:00)
[2022-11-05] MEDS: APIXABAN 2.5 MG TABLET GT SCH ×2 (09:00→17:11)
[2022-11-05] MEDS: LEVETIRACETAM 500 MG/5 ML GT SCH ×2 (09:00→21:16)
[2022-11-05] MEDS: CHOLESTYRAMINE/ASPARTAME 4 G/PKT PACKET GT SCH (09:00)
[2022-11-05] MEDS: Z GUARD REMEDY 4 OZ OINT TP SCH ×2 (09:00→21:16)
[2022-11-05] MEDS: FUROSEMIDE 20 MG TABLET GT SCH (09:00)
[2022-11-05] MEDS: VITAMINS A AND D 56.7 GM TUBE TP SCH ×2 (09:00→21:16)
[2022-11-05] MEDS: FERROUS SULFATE - FOR SA ONLY 330 MG/7.5 ML UDC GT SCH ×3 (09:00→17:11)
[2022-11-05] MEDS: FAMOTIDINE (20 MG) 20 MG TABLET GT SCH (09:00)
[2022-11-05 09:55] LABS: HEMATOCRIT 31 % (39-51); HEMOGLOBIN 9.3 g/dL (13.5-17.5); LYMPHOCYTES # (AUTO) 0.7 K/uL (0.8-4.8); LYMPHOCYTES % (AUTO) 9.1 % (20.0-44.0); MEAN CORPUSCULAR HGB CONC 31 g/dl (31.0-36.0); MEAN CORPUSCULAR VOLUME 91 fL (80-96); MONOCYTES # (AUTO) 0.9 K/uL (0.1-1.30); MONOCYTES % (AUTO) 12.3 % (2.0-12.0); NEUTROPHILS # (AUTO) 5.7 K/uL (1.8-8.9); NEUTROPHILS % (AUTO) 77.6 % (43.0-81.0); PLATELET COUNT (AUTO) 133 K/uL (150-450); RED BLOOD CELL COUNT(AUTO) 3.36 MIL/uL (4.5-6.0); WHITE BLOOD COUNT (AUTO) 7.3 K/uL (4.3-11.0)
[2022-11-05 10:24] LABS: CALCIUM, SERUM 9.7 mg/dL (8.5-10.1); CARBON DIOXIDE 29 mmol/L (21-32); CHLORIDE 97 mmol/L (98-107); CREATININE 1.9 mg/dL (0.6-1.3); GLUCOSE 159 mg/dL (74-106); MAGNESIUM 2.4 mg/dL (1.8-2.4); PHOSPHORUS 5.2 mg/dL (2.5-4.9); POTASSIUM 4.2 mmol/L (3.5-5.1); SODIUM SERUM 133 mmol/L (136-145); UREA NITROGEN, BLOOD 53 mg/dL (7-18)
--- NOTE | 2022-11-05 11:58 | NUR ---
Notified Dr. Alicea that patient has an episode of increase work of breathing, RR 36-38 shallow and labored. After suctioning trach and giving breathing treatment, patient's breathing improved; RR 16-18, no SOB. Obtained order from Dr. Alicea to do abdominal KUB due to abdominal distention, BM pattern current. Patient currently on IV ATB for pneumonitis, no adverse reaction. HL in the R hand patent, but notified nursing lead burner supervisor again of the need for midline. Paged Dr. Miguel Mak to report CBC, BMP, Mg and Phos level awaiting for his return call. According to Dr. Alicea, not to let Dr. Mak give him fluids due to chest x-ray result.
[2022-11-05] MEDS: DIGOXIN 0.125 MG TABLET GT SCH (13:26)
[2022-11-05] MEDS: GLUCERNA 1.2 1,000 ML BOTTLE GT PRN (13:29)
--- NOTE | 2022-11-05 13:45 | NUR ---
Noted an from Dr. Del Valle to [facility] and start Cefepime per pharmacy to dose. Faxed orders to [facility] and [facility] pharmacy.
[2022-11-05] MEDS ORDERED: CEFEPIME 2 GM in IV D5W 100 ML IV SCH ×2 (15:00→19:19)
--- NOTE | 2022-11-05 16:45 | NUR ---
Spoke with [facility] pharmacist regarding Cefepime dosing. Per Lori IV Cefepime is covered by insurance, first dose to be taken from ekit. Dr. Alicea made aware of Dr. Del Valle's order and he is in agreement. Patient's son Trevon notified.
[2022-11-05 20:20] VITALS: BP 124/56
[2022-11-05] MEDS: EPOETIN ALFA-EPBX 10,000 UNIT/ML VIAL SQ SCH (21:16)
[2022-11-05] MEDS: TAMSULOSIN 0.4 MG CAP.SR.24H GT SCH (21:17)
[2022-11-05] MEDS: LATANOPROST EYE DROP 0.005% 2.5 ML BOTTLE EACHEYE SCH (21:17)
[2022-11-05] MEDS: INSULIN GLARGINE, 100 UNIT/ML CARTRIDGE SQ SCH (21:18)
[2022-11-05] MEDS: GUAIFENESIN 300 MG/15 ML UDC GT PRN (21:51)
[2022-11-06 01:04] VITALS: BP 107/47
[2022-11-06] MEDS: IPRATROPIUM NEB FS 0.5 MG/2.5 ML AMPUL.NEB NEB SCH ×4 (01:59→18:58)
[2022-11-06] MEDS: ALBUTEROL FS 2.5 MG/0.5 ML VIAL.NEB NEB SCH ×4 (01:59→18:58)
[2022-11-06] MEDS: METOCLOPRAMIDE HCL 10 MG TABLET GT SCH ×3 (05:44→21:26)
[2022-11-06] MEDS: BLOOD SUGAR DIAGNOSTIC 1 EACH STRIP IN SCH ×3 (05:44→21:26)
[2022-11-06] MEDS: LEVOTHYROXINE SODIUM 125 MCG TABLET GT SCH (05:44)
[2022-11-06] MEDS: GLUCERNA 1.2 1,000 ML BOTTLE GT PRN (05:45)
[2022-11-06] MEDS: INSULIN ASPART/LISPRO 100 UNIT/ML CARTRIDGE SQ PRN ×3 (05:48→23:38)
[2022-11-06 07:28] LABS: CALCIUM, SERUM 9.9 mg/dL (8.5-10.1); CHLORIDE 96 mmol/L (98-107); GLUCOSE 134 mg/dL (74-106); POTASSIUM 4.2 mmol/L (3.5-5.1); SODIUM SERUM 132 mmol/L (136-145); UREA NITROGEN, BLOOD 54 mg/dL (7-18)
[2022-11-06 07:38] LABS: CARBON DIOXIDE 32 mmol/L (21-32)
[2022-11-06 08:00] VITALS: BP 129/65
[2022-11-06] MEDS: APIXABAN 2.5 MG TABLET GT SCH ×2 (09:26→16:24)
[2022-11-06] MEDS: Z GUARD REMEDY 4 OZ OINT TP SCH ×2 (09:27→21:26)
[2022-11-06] MEDS: CICLOPIROX 8% TP SCH (09:27)
[2022-11-06] MEDS: JANUVIA 25 MG GT SCH (09:27)
[2022-11-06] MEDS: CHOLESTYRAMINE/ASPARTAME 4 G/PKT PACKET GT SCH (09:27)
[2022-11-06] MEDS: ACIDOPHILUS/BULGARICUS 1 EACH TAB.CHEW GT SCH ×2 (09:27→16:24)
[2022-11-06] MEDS: FERROUS SULFATE - FOR SA ONLY 330 MG/7.5 ML UDC GT SCH ×3 (09:27→16:24)
[2022-11-06] MEDS: VIT B CMPLX 3/FA/VIT C/BIOTIN 1 TAB TABLET GT SCH (09:27)
[2022-11-06] MEDS: FAMOTIDINE (20 MG) 20 MG TABLET GT SCH (09:27)
[2022-11-06] MEDS: LEVETIRACETAM 500 MG/5 ML GT SCH ×2 (09:27→21:26)
[2022-11-06] MEDS: FUROSEMIDE 20 MG TABLET GT SCH (09:27)
[2022-11-06] MEDS: BACLOFEN 5 MG GT SCH ×2 (09:27→16:24)
[2022-11-06] MEDS: SIROLIMUS 1 MG GT SCH (09:27)
[2022-11-06] MEDS: VITAMINS A AND D 56.7 GM TUBE TP SCH ×2 (09:27→21:26)
[2022-11-06] MEDS: HYDROGEN PEROXIDE 480 ML BOTTLE TP SCH ×2 (09:57→21:16)
--- NOTE | 2022-11-06 10:30 | NUR ---
ARELIS midline inserted by PICC/midline nurse. Pt tolerated procedure well. Dressing intact, lines flushed and patent.
--- NOTE | 2022-11-06 10:50 | NUR ---
Relayed lab results and KUB result to Dr. Fritz. BUN 54, creatinine 2.0. Notified Dr. Fritz about Dr. Alicea's recommendation to not give pt any IV fluid d/t pulmonary edema. Order obtained for CT scan without contrast of abdomen and pelvis. Order carried out. Pt's son Trevon notified.
--- NOTE | 2022-11-06 11:00 | NUR ---
Relayed procalcitonin level [address] Del Valle. Order obtained for repeat procalcitonin in AM. Order carried out.
[2022-11-06] MEDS: GUAIFENESIN 300 MG/15 ML UDC GT PRN (11:14)
[2022-11-06 12:10] VITALS: BP 102/71
[2022-11-06] MEDS: DIGOXIN 0.125 MG TABLET GT SCH (13:06)
--- NOTE | 2022-11-06 13:13 | NUR ---
Pt. received on trach current vent settings and tolerated well. Vent is plug into red outlet. Sx. patient 2x + prn. No SOB or respiratory distress noted. Tx given with no adverse reactions noted. Ambu bag and back up trach is at the bed side. Pulse oximeter is on, audible and visible. Trach is in midline, patent and secured. Trach care done. Will keep monitor the pt.
[2022-11-06] MEDS: ACETAMINOPHEN 650 MG/20 ML UDC- SA PATIENTS-PAIN ONLY GT PRN (16:30)
[2022-11-06] MEDS ORDERED: CEFEPIME 1 GM in IV D5W 50 ML IV SCH (18:00)
[2022-11-06 19:58] VITALS: BP 122/58
[2022-11-06] MEDS: CEFEPIME 1 GM in IV D5W 50 ML IV SCH (20:24)
[2022-11-06] MEDS: TAMSULOSIN 0.4 MG CAP.SR.24H GT SCH (21:26)
[2022-11-06] MEDS: LATANOPROST EYE DROP 0.005% 2.5 ML BOTTLE EACHEYE SCH (21:26)
[2022-11-06] MEDS: INSULIN GLARGINE, 100 UNIT/ML CARTRIDGE SQ SCH (21:27)
[2022-11-07] MEDS: IPRATROPIUM NEB FS 0.5 MG/2.5 ML AMPUL.NEB NEB SCH ×4 (01:10→19:15)
[2022-11-07] MEDS: ALBUTEROL FS 2.5 MG/0.5 ML VIAL.NEB NEB SCH ×4 (01:10→19:15)
[2022-11-07] MEDS: METOCLOPRAMIDE HCL 10 MG TABLET GT SCH ×4 (05:23→20:42)
[2022-11-07] MEDS: LEVOTHYROXINE SODIUM 125 MCG TABLET GT SCH (05:23)
[2022-11-07] MEDS: BLOOD SUGAR DIAGNOSTIC 1 EACH STRIP IN SCH ×3 (05:45→21:13)
[2022-11-07] MEDS: INSULIN ASPART/LISPRO 100 UNIT/ML CARTRIDGE SQ PRN (05:46)
[2022-11-07] MEDS: GLUCERNA 1.2 1,000 ML BOTTLE GT PRN (05:46)
--- NOTE | 2022-11-07 06:05 | NUR ---
RN NOTES CT OF THE ABDOMEN DONE, AWAITING RESULT. PATIENT IN BED, AWAKE. AFEBRILE WITH NO S/S OF DISTRESS OBSERVED. ON IV ANTIBIOTICS FOR PNA WITH NO ADVERSE REACTIONS NOTED. NO S/S OF PAIN/DISCOMFORT SEEN. WILL CONTINUE TO MONITOR.
[2022-11-07 07:28] LABS: BASOPHILS % (AUTO) 0.1 % (0.0-2.0); EOSINOPHILS % (AUTO) 0.6 % (0.0-6.0); HEMATOCRIT 32 % (39-51); HEMOGLOBIN 9.5 g/dL (13.5-17.5); LYMPHOCYTES # (AUTO) 0.8 K/uL (0.8-4.8); MEAN CORPUSCULAR HGB CONC 30 g/dl (31.0-36.0); MEAN CORPUSCULAR VOLUME 94 fL (80-96); MONOCYTES % (AUTO) 11.6 % (2.0-12.0); NEUTROPHILS # (AUTO) 7.1 K/uL (1.8-8.9); NEUTROPHILS % (AUTO) 78.7 % (43.0-81.0); PLATELET COUNT (AUTO) 148 K/uL (150-450); RED BLOOD CELL COUNT(AUTO) 3.43 MIL/uL (4.5-6.0)
[2022-11-07 07:41] LABS: CALCIUM, SERUM 9.9 mg/dL (8.5-10.1); CARBON DIOXIDE 31 mmol/L (21-32); CHLORIDE 96 mmol/L (98-107); CREATININE 1.9 mg/dL (0.6-1.3); GLUCOSE 150 mg/dL (74-106); POTASSIUM 4.5 mmol/L (3.5-5.1); SODIUM SERUM 132 mmol/L (136-145); UREA NITROGEN, BLOOD 53 mg/dL (7-18)
[2022-11-07] MEDS: HYDROGEN PEROXIDE 480 ML BOTTLE TP SCH ×2 (08:10→21:21)
[2022-11-07] MEDS: JANUVIA 25 MG GT SCH (09:11)
[2022-11-07] MEDS: FAMOTIDINE (20 MG) 20 MG TABLET GT SCH (09:12)
[2022-11-07] MEDS: FERROUS SULFATE - FOR SA ONLY 330 MG/7.5 ML UDC GT SCH ×3 (09:12→16:25)
[2022-11-07] MEDS: ACIDOPHILUS/BULGARICUS 1 EACH TAB.CHEW GT SCH ×2 (09:17→16:25)
[2022-11-07] MEDS: APIXABAN 2.5 MG TABLET GT SCH ×2 (09:18→16:26)
[2022-11-07] MEDS: BACLOFEN 5 MG GT SCH ×2 (09:19→16:25)
[2022-11-07] MEDS: LEVETIRACETAM 500 MG/5 ML GT SCH ×2 (09:19→20:40)
[2022-11-07] MEDS: CHOLESTYRAMINE/ASPARTAME 4 G/PKT PACKET GT SCH (09:19)
[2022-11-07] MEDS: Z GUARD REMEDY 4 OZ OINT TP SCH ×2 (09:21→20:43)
[2022-11-07] MEDS: CICLOPIROX 8% TP SCH (09:21)
[2022-11-07] MEDS: VITAMINS A AND D 56.7 GM TUBE TP SCH ×2 (09:21→20:43)
[2022-11-07] MEDS: VIT B CMPLX 3/FA/VIT C/BIOTIN 1 TAB TABLET GT SCH (09:26)
[2022-11-07] MEDS: SIROLIMUS 1 MG GT SCH (09:26)
[2022-11-07] MEDS: ACETAMINOPHEN 650 MG/20 ML UDC- SA PATIENTS-PAIN ONLY GT PRN (09:31)
--- NOTE | 2022-11-07 11:47 | NUR ---
Relayed CT scan result to Dr. Fritz, gave order to refer patient to Dr. Aleman for evaluation d/t pericardial effusion.
[2022-11-07 12:00] VITALS: BP 130/87
[2022-11-07] MEDS: DIGOXIN 0.125 MG TABLET GT SCH (12:30)
--- NOTE | 2022-11-07 12:45 | NUR ---
Spoke with Dr. Aleman, he gave order to do 2D echocardiogram, carried out.
--- NOTE | 2022-11-07 15:35 | NUR ---
ESR result relayed to Dr. Fritz, no new order given. Resident stable, no s/s of distress. Will continue to monitor.
--- NOTE | 2022-11-07 16:52 | NUR ---
RECEIVED PATIENT ON MD ORDERED VENT SETTINGS. HAS A TRACH PORTEX 8 CUFFED. AIRWAY PATENT AND SECURE. HHN TXS DEONDRE WELL WITH NO ADVERSE REACTION NOTED. AMBU BAG AND EMERGENCY TRACH AT THE BEDSIDE. VENT PLUGGED INTO RED OUTLET. ALARMS SET AND AUDIBLE. SMALL YELLOW THICK SECRETIONS NOTED.
[2022-11-07 19:58] VITALS: BP 157/92
[2022-11-07] MEDS: CEFEPIME 1 GM in IV D5W 50 ML IV SCH (20:11)
--- NOTE | 2022-11-07 21:21 | NUR ---
RT RECEIVED PT ON VENT: AC 12, Vt 500, FIO2 40%, +5. TOLERATING SETTINGS. NO RESPIRATORY DISTRESS OR SOB NOTED DURING ASSESSMENT. NEB TX GIVEN AND TOLERATED. NO ADVERSE REACTIONS NOTED. SUCTIONED X2. TRACH IS PATENT AND SECURE. EMERGENCY TRACH AND AMBU ARE BEDSIDE. VENT IS PLUGGED INTO A RED OUTLET, AND ALARMS ARE ON AND AUDIBLE.
[2022-11-07] MEDS: TAMSULOSIN 0.4 MG CAP.SR.24H GT SCH (22:10)
[2022-11-07] MEDS: LATANOPROST EYE DROP 0.005% 2.5 ML BOTTLE EACHEYE SCH (22:10)
[2022-11-07] MEDS: INSULIN GLARGINE, 100 UNIT/ML CARTRIDGE SQ SCH (22:11)
[2022-11-08] MEDS: ALBUTEROL FS 2.5 MG/0.5 ML VIAL.NEB NEB SCH ×4 (01:08→20:18)
[2022-11-08] MEDS: IPRATROPIUM NEB FS 0.5 MG/2.5 ML AMPUL.NEB NEB SCH ×4 (01:08→20:18)
[2022-11-08] MEDS: METOCLOPRAMIDE HCL 10 MG TABLET GT SCH ×3 (05:44→21:22)
[2022-11-08] MEDS: LEVOTHYROXINE SODIUM 125 MCG TABLET GT SCH (05:45)
[2022-11-08] MEDS: BLOOD SUGAR DIAGNOSTIC 1 EACH STRIP IN SCH ×3 (05:45→21:22)
--- NOTE | 2022-11-08 07:00 | NUR ---
RN NOTES Seen and examined by Dr. Aleman. Echocardiogram results reviewed. New order for EKG. Noted and carried out.
[2022-11-08 07:16] LABS: BASOPHILS % (AUTO) 0.1 % (0.0-2.0); EOSINOPHILS % (AUTO) 0.4 % (0.0-6.0); HEMATOCRIT 32 % (39-51); HEMOGLOBIN 9.5 g/dL (13.5-17.5); LYMPHOCYTES # (AUTO) 0.6 K/uL (0.8-4.8); LYMPHOCYTES % (AUTO) 7.7 % (20.0-44.0); MEAN CORPUSCULAR HGB CONC 30 g/dl (31.0-36.0); MEAN CORPUSCULAR VOLUME 92 fL (80-96); MONOCYTES # (AUTO) 0.7 K/uL (0.1-1.30); MONOCYTES % (AUTO) 8.5 % (2.0-12.0); NEUTROPHILS # (AUTO) 6.4 K/uL (1.8-8.9); NEUTROPHILS % (AUTO) 83.3 % (43.0-81.0); PLATELET COUNT (AUTO) 171 K/uL (150-450); RED BLOOD CELL COUNT(AUTO) 3.45 MIL/uL (4.5-6.0); WHITE BLOOD COUNT (AUTO) 7.7 K/uL (4.3-11.0)
[2022-11-08 07:35] LABS: CALCIUM, SERUM 9.8 mg/dL (8.5-10.1); CARBON DIOXIDE 31 mmol/L (21-32); CHLORIDE 97 mmol/L (98-107); CREATININE 1.8 mg/dL (0.6-1.3); GLUCOSE 123 mg/dL (74-106); MAGNESIUM 2.6 mg/dL (1.8-2.4); PHOSPHORUS 4.5 mg/dL (2.5-4.9); POTASSIUM 4.5 mmol/L (3.5-5.1); SODIUM SERUM 134 mmol/L (136-145); UREA NITROGEN, BLOOD 54 mg/dL (7-18)
[2022-11-08 07:56] VITALS: BP 185/87
--- NOTE | 2022-11-08 08:32 | NUR ---
Relayed EKG result to Dr Aleman. No new order at this time.
[2022-11-08] MEDS: LEVETIRACETAM 500 MG/5 ML GT SCH ×2 (09:00→21:22)
[2022-11-08] MEDS: JANUVIA 25 MG GT SCH (09:00)
[2022-11-08] MEDS: SIROLIMUS 1 MG GT SCH (09:00)
[2022-11-08] MEDS: ACIDOPHILUS/BULGARICUS 1 EACH TAB.CHEW GT SCH ×2 (09:00→17:07)
[2022-11-08] MEDS: CHOLESTYRAMINE/ASPARTAME 4 G/PKT PACKET GT SCH (09:00)
[2022-11-08] MEDS: VIT B CMPLX 3/FA/VIT C/BIOTIN 1 TAB TABLET GT SCH (09:00)
[2022-11-08] MEDS: VITAMINS A AND D 56.7 GM TUBE TP SCH ×2 (09:00→21:22)
[2022-11-08] MEDS: FAMOTIDINE (20 MG) 20 MG TABLET GT SCH (09:00)
[2022-11-08] MEDS: APIXABAN 2.5 MG TABLET GT SCH ×2 (09:00→17:06)
[2022-11-08] MEDS: Z GUARD REMEDY 4 OZ OINT TP SCH ×2 (09:00→21:22)
[2022-11-08] MEDS: CICLOPIROX 8% TP SCH (09:00)
[2022-11-08] MEDS: FERROUS SULFATE - FOR SA ONLY 330 MG/7.5 ML UDC GT SCH ×3 (09:00→17:07)
[2022-11-08] MEDS: BACLOFEN 5 MG GT SCH ×2 (09:00→17:07)
[2022-11-08] MEDS: HYDROGEN PEROXIDE 480 ML BOTTLE TP SCH ×2 (10:48→20:18)
[2022-11-08 12:40] VITALS: BP 156/72
[2022-11-08] MEDS: DIGOXIN 0.125 MG TABLET GT SCH (13:25)
[2022-11-08] MEDS: INSULIN ASPART/LISPRO 100 UNIT/ML CARTRIDGE SQ PRN (13:28)
--- NOTE | 2022-11-08 17:47 | NUR ---
Relayed lab results to Dr Fritz. No new order.
[2022-11-08] MEDS: GLUCERNA 1.2 1,000 ML BOTTLE GT PRN (19:06)
[2022-11-08 19:50] VITALS: BP 165/93
[2022-11-08] MEDS: CEFEPIME 1 GM in IV D5W 50 ML IV SCH (20:00)
[2022-11-08] MEDS: EPOETIN ALFA-EPBX 10,000 UNIT/ML VIAL SQ SCH (21:22)
[2022-11-08] MEDS: INSULIN GLARGINE, 100 UNIT/ML CARTRIDGE SQ SCH (21:23)
[2022-11-08] MEDS: TAMSULOSIN 0.4 MG CAP.SR.24H GT SCH (21:23)
[2022-11-08] MEDS: LATANOPROST EYE DROP 0.005% 2.5 ML BOTTLE EACHEYE SCH (21:23)
[2022-11-09] MEDS: IPRATROPIUM NEB FS 0.5 MG/2.5 ML AMPUL.NEB NEB SCH ×4 (02:12→20:23)
[2022-11-09] MEDS: ALBUTEROL FS 2.5 MG/0.5 ML VIAL.NEB NEB SCH ×4 (02:12→20:23)
[2022-11-09] MEDS: METOCLOPRAMIDE HCL 10 MG TABLET GT SCH ×3 (05:09→20:25)
[2022-11-09] MEDS: LEVOTHYROXINE SODIUM 125 MCG TABLET GT SCH (05:09)
[2022-11-09] MEDS: BLOOD SUGAR DIAGNOSTIC 1 EACH STRIP IN SCH ×3 (05:42→21:50)
[2022-11-09] MEDS: HYDROGEN PEROXIDE 480 ML BOTTLE TP SCH ×2 (07:20→20:23)
[2022-11-09 07:31] VITALS: BP 175/104
[2022-11-09 07:45] LABS: CARBON DIOXIDE 30 mmol/L (21-32); CHLORIDE 98 mmol/L (98-107); CREATININE 1.8 mg/dL (0.6-1.3); GLUCOSE 126 mg/dL (74-106); POTASSIUM 4.5 mmol/L (3.5-5.1); SODIUM SERUM 135 mmol/L (136-145); UREA NITROGEN, BLOOD 50 mg/dL (7-18)
--- NOTE | 2022-11-09 08:18 | NUR ---
RT NOTE RECEIVED PT ON CURRENT MD ORDERED VENT SETTINGS. TRACH IS MIDLINE, PATENT AND SECURED. NO RESP. DISTRESS OR SOB NOTED DURING ASSESSMENT. AMBU BAG AND TRACH AT BEDSIDE. SX'ED PRN. TX GIVEN. NO ADVERSE REACTIONS NOTED. ALARMS ON AND AUDIBLE. VENT PLUGGED IN RED OUTLET. Will continue to monitor
[2022-11-09] MEDS: CHOLESTYRAMINE/ASPARTAME 4 G/PKT PACKET GT SCH (09:00)
[2022-11-09] MEDS: JANUVIA 25 MG GT SCH (09:00)
[2022-11-09] MEDS: BACLOFEN 5 MG GT SCH ×2 (09:00→17:00)
[2022-11-09] MEDS: SIROLIMUS 1 MG GT SCH (09:00)
[2022-11-09] MEDS: FAMOTIDINE (20 MG) 20 MG TABLET GT SCH (09:00)
[2022-11-09] MEDS: LEVETIRACETAM 500 MG/5 ML GT SCH ×2 (09:00→20:25)
[2022-11-09] MEDS: Z GUARD REMEDY 4 OZ OINT TP SCH ×2 (09:00→20:25)
[2022-11-09] MEDS: FERROUS SULFATE - FOR SA ONLY 330 MG/7.5 ML UDC GT SCH ×3 (09:00→17:00)
[2022-11-09] MEDS: APIXABAN 2.5 MG TABLET GT SCH ×2 (09:00→17:00)
[2022-11-09] MEDS: ACIDOPHILUS/BULGARICUS 1 EACH TAB.CHEW GT SCH ×2 (09:00→17:00)
[2022-11-09] MEDS: CICLOPIROX 8% TP SCH (09:00)
[2022-11-09] MEDS: VITAMINS A AND D 56.7 GM TUBE TP SCH ×2 (09:00→20:26)
[2022-11-09] MEDS: VIT B CMPLX 3/FA/VIT C/BIOTIN 1 TAB TABLET GT SCH (09:00)
[2022-11-09 11:59] VITALS: BP 156/86
[2022-11-09] MEDS: DIGOXIN 0.125 MG TABLET GT SCH (13:14)
[2022-11-09] MEDS: INSULIN ASPART/LISPRO 100 UNIT/ML CARTRIDGE SQ PRN (13:15)
[2022-11-09] MEDS: GLUCERNA 1.2 1,000 ML BOTTLE GT PRN (18:29)
[2022-11-09 20:14] VITALS: BP 162/97
[2022-11-09] MEDS: CEFEPIME 1 GM in IV D5W 50 ML IV SCH (20:25)
[2022-11-09] MEDS: LATANOPROST EYE DROP 0.005% 2.5 ML BOTTLE EACHEYE SCH (21:50)
[2022-11-09] MEDS: TAMSULOSIN 0.4 MG CAP.SR.24H GT SCH (21:50)
[2022-11-09] MEDS: INSULIN GLARGINE, 100 UNIT/ML CARTRIDGE SQ SCH (21:51)
[2022-11-10] MEDS: ALBUTEROL FS 2.5 MG/0.5 ML VIAL.NEB NEB SCH ×4 (02:08→20:05)
[2022-11-10] MEDS: IPRATROPIUM NEB FS 0.5 MG/2.5 ML AMPUL.NEB NEB SCH ×4 (02:08→20:05)
[2022-11-10] MEDS: LEVOTHYROXINE SODIUM 125 MCG TABLET GT SCH (05:43)
[2022-11-10] MEDS: METOCLOPRAMIDE HCL 10 MG TABLET GT SCH ×3 (05:43→21:18)
[2022-11-10] MEDS: BLOOD SUGAR DIAGNOSTIC 1 EACH STRIP IN SCH ×3 (05:43→21:18)
[2022-11-10 07:03] LABS: HEMOGLOBIN 9.4 g/dL (13.5-17.5)
[2022-11-10 07:27] VITALS: BP 116/79
[2022-11-10 07:31] LABS: CARBON DIOXIDE 32 mmol/L (21-32); CHLORIDE 98 mmol/L (98-107); CREATININE 1.7 mg/dL (0.6-1.3); GLUCOSE 122 mg/dL (74-106); POTASSIUM 4.6 mmol/L (3.5-5.1); SODIUM SERUM 134 mmol/L (136-145); UREA NITROGEN, BLOOD 52 mg/dL (7-18)
[2022-11-10] MEDS: CHOLESTYRAMINE/ASPARTAME 4 G/PKT PACKET GT SCH (09:00)
[2022-11-10] MEDS: VITAMINS A AND D 56.7 GM TUBE TP SCH ×2 (09:00→21:19)
[2022-11-10] MEDS: ACIDOPHILUS/BULGARICUS 1 EACH TAB.CHEW GT SCH ×2 (09:00→17:00)
[2022-11-10] MEDS: FAMOTIDINE (20 MG) 20 MG TABLET GT SCH (09:00)
[2022-11-10] MEDS: LEVETIRACETAM 500 MG/5 ML GT SCH ×2 (09:00→21:18)
[2022-11-10] MEDS: SIROLIMUS 1 MG GT SCH (09:00)
[2022-11-10] MEDS: VIT B CMPLX 3/FA/VIT C/BIOTIN 1 TAB TABLET GT SCH (09:00)
[2022-11-10] MEDS: JANUVIA 25 MG GT SCH (09:00)
[2022-11-10] MEDS: BACLOFEN 5 MG GT SCH ×2 (09:00→17:00)
[2022-11-10] MEDS: CICLOPIROX 8% TP SCH (09:00)
[2022-11-10] MEDS: APIXABAN 2.5 MG TABLET GT SCH ×2 (09:00→17:00)
[2022-11-10] MEDS: Z GUARD REMEDY 4 OZ OINT TP SCH ×2 (09:00→21:19)
[2022-11-10] MEDS: FERROUS SULFATE - FOR SA ONLY 330 MG/7.5 ML UDC GT SCH ×3 (09:00→17:00)
[2022-11-10] MEDS: HYDROGEN PEROXIDE 480 ML BOTTLE TP SCH ×2 (09:59→20:10)
[2022-11-10] MEDS: DIGOXIN 0.125 MG TABLET GT SCH (13:00)
[2022-11-10 13:41] VITALS: BP 149/81
[2022-11-10] MEDS: INSULIN ASPART/LISPRO 100 UNIT/ML CARTRIDGE SQ PRN ×2 (14:25→21:20)
--- NOTE | 2022-11-10 15:20 | NUR ---
SS NOTE: SW received call from Dakota Albrecht the pt.'s son stating that they have received a bill for about $180 for services provided by attending physician. DELMI discussed with [employer] supervisor printing and stamping and she suggested family call the number on the bill. Family was agreeable to plan and stated they will call to find out if insurance can cover these costs.
[2022-11-10] MEDS: GLUCERNA 1.2 1,000 ML BOTTLE GT PRN (18:34)
[2022-11-10 20:00] VITALS: BP 141/83
[2022-11-10] MEDS: CEFEPIME 1 GM in IV D5W 50 ML IV SCH (20:48)
[2022-11-10] MEDS: EPOETIN ALFA-EPBX 10,000 UNIT/ML VIAL SQ SCH (21:18)
[2022-11-10] MEDS: TAMSULOSIN 0.4 MG CAP.SR.24H GT SCH (21:19)
[2022-11-10] MEDS: LATANOPROST EYE DROP 0.005% 2.5 ML BOTTLE EACHEYE SCH (21:19)
[2022-11-10] MEDS: INSULIN GLARGINE, 100 UNIT/ML CARTRIDGE SQ SCH (21:19)
[2022-11-11] MEDS: IPRATROPIUM NEB FS 0.5 MG/2.5 ML AMPUL.NEB NEB SCH ×4 (01:57→19:57)
[2022-11-11] MEDS: ALBUTEROL FS 2.5 MG/0.5 ML VIAL.NEB NEB SCH ×4 (01:57→19:57)
[2022-11-11] MEDS: BLOOD SUGAR DIAGNOSTIC 1 EACH STRIP IN SCH ×3 (05:28→21:28)
[2022-11-11] MEDS: METOCLOPRAMIDE HCL 10 MG TABLET GT SCH ×3 (05:28→21:28)
[2022-11-11] MEDS: LEVOTHYROXINE SODIUM 125 MCG TABLET GT SCH (05:28)
[2022-11-11] MEDS: INSULIN ASPART/LISPRO 100 UNIT/ML CARTRIDGE SQ PRN ×3 (05:29→21:30)
[2022-11-11 06:21] LABS: BASOPHILS % (AUTO) 0.1 % (0.0-2.0); EOSINOPHILS % (AUTO) 0.7 % (0.0-6.0); HEMATOCRIT 29 % (39-51); HEMOGLOBIN 8.7 g/dL (13.5-17.5); LYMPHOCYTES # (AUTO) 0.5 K/uL (0.8-4.8); LYMPHOCYTES % (AUTO) 7.4 % (20.0-44.0); MEAN CORPUSCULAR HGB CONC 30 g/dl (31.0-36.0); MEAN CORPUSCULAR VOLUME 94 fL (80-96); MONOCYTES # (AUTO) 0.7 K/uL (0.1-1.30); MONOCYTES % (AUTO) 10.9 % (2.0-12.0); NEUTROPHILS # (AUTO) 5.2 K/uL (1.8-8.9); NEUTROPHILS % (AUTO) 80.9 % (43.0-81.0); PLATELET COUNT (AUTO) 159 K/uL (150-450); RED BLOOD CELL COUNT(AUTO) 3.07 MIL/uL (4.5-6.0); WHITE BLOOD COUNT (AUTO) 6.4 K/uL (4.3-11.0)
[2022-11-11 06:42] LABS: CARBON DIOXIDE 32 mmol/L (21-32); CHLORIDE 97 mmol/L (98-107); CREATININE 1.7 mg/dL (0.6-1.3); GLUCOSE 129 mg/dL (74-106); MAGNESIUM 2.5 mg/dL (1.8-2.4); PHOSPHORUS 4.6 mg/dL (2.5-4.9); POTASSIUM 4.5 mmol/L (3.5-5.1); SODIUM SERUM 133 mmol/L (136-145); UREA NITROGEN, BLOOD 52 mg/dL (7-18)
[2022-11-11 07:32] VITALS: BP 156/82
[2022-11-11] MEDS: HYDROGEN PEROXIDE 480 ML BOTTLE TP SCH ×2 (07:57→19:58)
[2022-11-11] MEDS: VIT B CMPLX 3/FA/VIT C/BIOTIN 1 TAB TABLET GT SCH (08:56)
[2022-11-11] MEDS: SIROLIMUS 1 MG GT SCH (08:57)
[2022-11-11] MEDS: APIXABAN 2.5 MG TABLET GT SCH ×2 (08:57→16:34)
[2022-11-11] MEDS: ACIDOPHILUS/BULGARICUS 1 EACH TAB.CHEW GT SCH ×2 (08:57→16:34)
[2022-11-11] MEDS: LEVETIRACETAM 500 MG/5 ML GT SCH ×2 (08:57→21:28)
[2022-11-11] MEDS: FERROUS SULFATE - FOR SA ONLY 330 MG/7.5 ML UDC GT SCH ×3 (08:57→16:34)
[2022-11-11] MEDS: JANUVIA 25 MG GT SCH (08:57)
[2022-11-11] MEDS: FAMOTIDINE (20 MG) 20 MG TABLET GT SCH (08:59)
[2022-11-11] MEDS: CICLOPIROX 8% TP SCH (08:59)
[2022-11-11] MEDS: Z GUARD REMEDY 4 OZ OINT TP SCH ×2 (08:59→21:28)
[2022-11-11] MEDS: CHOLESTYRAMINE/ASPARTAME 4 G/PKT PACKET GT SCH (08:59)
[2022-11-11] MEDS: VITAMINS A AND D 56.7 GM TUBE TP SCH ×2 (08:59→21:28)
[2022-11-11] MEDS: BACLOFEN 5 MG GT SCH ×2 (08:59→16:34)
--- NOTE | 2022-11-11 09:23 | NUR ---
Relayed lab results to Dr Mak. He ordered to repeat CBC BMP in AM.
[2022-11-11] MEDS: GLUCERNA 1.2 1,000 ML BOTTLE GT PRN (11:42)
[2022-11-11 12:07] VITALS: BP 146/56
[2022-11-11] MEDS: DIGOXIN 0.125 MG TABLET GT SCH (12:18)
--- NOTE | 2022-11-11 16:45 | NUR ---
SLIGHT BLOOD NOTICED WHEN PATIENT IS BEEN SUCTION. PATIENT RN NOTIFIED. Addendum: 11/11/22 at 1646 by HANANE MARTINEZ RT Amended: Links added.
[2022-11-11 19:16] VITALS: BP 149/77
[2022-11-11] MEDS: CEFEPIME 1 GM in IV D5W 50 ML IV SCH (20:00)
[2022-11-11] MEDS: LATANOPROST EYE DROP 0.005% 2.5 ML BOTTLE EACHEYE SCH (21:28)
[2022-11-11] MEDS: TAMSULOSIN 0.4 MG CAP.SR.24H GT SCH (21:28)
[2022-11-11] MEDS: INSULIN GLARGINE, 100 UNIT/ML CARTRIDGE SQ SCH (21:29)
[2022-11-11] MEDS: ACETAMINOPHEN 650 MG/20 ML UDC- SA PATIENTS-PAIN ONLY GT PRN (22:24)
[2022-11-11 23:53] VITALS: BP 113/55
[2022-11-12] MEDS: ALBUTEROL FS 2.5 MG/0.5 ML VIAL.NEB NEB SCH ×4 (01:59→18:47)
[2022-11-12] MEDS: IPRATROPIUM NEB FS 0.5 MG/2.5 ML AMPUL.NEB NEB SCH ×4 (01:59→18:47)
[2022-11-12] MEDS: LEVOTHYROXINE SODIUM 125 MCG TABLET GT SCH (05:22)
[2022-11-12] MEDS: BLOOD SUGAR DIAGNOSTIC 1 EACH STRIP IN SCH ×3 (05:22→21:31)
[2022-11-12] MEDS: METOCLOPRAMIDE HCL 10 MG TABLET GT SCH ×3 (05:22→21:31)
[2022-11-12] MEDS: INSULIN ASPART/LISPRO 100 UNIT/ML CARTRIDGE SQ PRN ×3 (05:22→21:33)
--- NOTE | 2022-11-12 06:00 | NUR ---
Patient stomach is bigger than usual,slightly distended,check gastric residual 180 ml ,held feeding will re check in an hour,noted also with abdominal gas GT venting with gas coming out from the venting syringe. Will continue to monitor and will endorse.
[2022-11-12 06:57] LABS: BASOPHILS % (AUTO) 0.1 % (0.0-2.0); EOSINOPHILS % (AUTO) 1.3 % (0.0-6.0); HEMATOCRIT 27 % (39-51); HEMOGLOBIN 8.2 g/dL (13.5-17.5); LYMPHOCYTES # (AUTO) 0.3 K/uL (0.8-4.8); LYMPHOCYTES % (AUTO) 5.9 % (20.0-44.0); MEAN CORPUSCULAR HGB CONC 30 g/dl (31.0-36.0); MEAN CORPUSCULAR VOLUME 94 fL (80-96); MONOCYTES # (AUTO) 0.6 K/uL (0.1-1.30); MONOCYTES % (AUTO) 9.8 % (2.0-12.0); NEUTROPHILS # (AUTO) 4.8 K/uL (1.8-8.9); NEUTROPHILS % (AUTO) 82.9 % (43.0-81.0); PLATELET COUNT (AUTO) 140 K/uL (150-450); RED BLOOD CELL COUNT(AUTO) 2.91 MIL/uL (4.5-6.0); WHITE BLOOD COUNT (AUTO) 5.7 K/uL (4.3-11.0)
[2022-11-12] MEDS: HYDROGEN PEROXIDE 480 ML BOTTLE TP SCH ×2 (07:04→20:56)
[2022-11-12 07:09] LABS: CALCIUM, SERUM 9.7 mg/dL (8.5-10.1); CARBON DIOXIDE 31 mmol/L (21-32); CHLORIDE 99 mmol/L (98-107); CREATININE 1.9 mg/dL (0.6-1.3); GLUCOSE 92 mg/dL (74-106); POTASSIUM 4.6 mmol/L (3.5-5.1); SODIUM SERUM 137 mmol/L (136-145); UREA NITROGEN, BLOOD 51 mg/dL (7-18)
[2022-11-12 07:44] LABS: ALBUMIN 1.7 g/dL (3.4-5.0); BILIRUBIN,DIRECT 0.3 mg/dL (0.0-0.2); BILIRUBIN,TOTAL 0.5 mg/dL (0.2-1.0); TOTAL PROTEIN, SERUM 7.3 g/dL (6.4-8.2)
[2022-11-12 07:55] VITALS: BP 121/86
[2022-11-12] MEDS: CICLOPIROX 8% TP SCH (09:00)
[2022-11-12] MEDS: JANUVIA 25 MG GT SCH (09:20)
[2022-11-12] MEDS: FERROUS SULFATE - FOR SA ONLY 330 MG/7.5 ML UDC GT SCH ×3 (09:20→17:26)
[2022-11-12] MEDS: APIXABAN 2.5 MG TABLET GT SCH ×2 (09:20→17:26)
[2022-11-12] MEDS: CHOLESTYRAMINE/ASPARTAME 4 G/PKT PACKET GT SCH (09:21)
[2022-11-12] MEDS: ACIDOPHILUS/BULGARICUS 1 EACH TAB.CHEW GT SCH ×2 (09:21→17:26)
[2022-11-12] MEDS: LEVETIRACETAM 500 MG/5 ML GT SCH ×2 (09:21→21:31)
[2022-11-12] MEDS: FAMOTIDINE (20 MG) 20 MG TABLET GT SCH (09:21)
[2022-11-12] MEDS: SIROLIMUS 1 MG GT SCH (09:21)
[2022-11-12] MEDS: BACLOFEN 5 MG GT SCH ×2 (09:21→17:26)
[2022-11-12] MEDS: VITAMINS A AND D 56.7 GM TUBE TP SCH ×2 (09:21→21:32)
[2022-11-12] MEDS: Z GUARD REMEDY 4 OZ OINT TP SCH ×2 (09:21→21:32)
[2022-11-12] MEDS: VIT B CMPLX 3/FA/VIT C/BIOTIN 1 TAB TABLET GT SCH (09:43)
[2022-11-12] MEDS: DIGOXIN 0.125 MG TABLET GT SCH (13:30)
--- NOTE | 2022-11-12 16:47 | NUR ---
Seen and examined by Dr. Fritz, reviewed lab result done today. No new order given. Reported that patient has high gastric residual last night with lots of gas. At this time, gastric residual at minimum 80 cc at 10 am and 10 ml at 1300. No s/s of respiratory distress, stable and sleeping intermittently.
[2022-11-12 19:40] VITALS: BP 115/57
[2022-11-12] MEDS: EPOETIN ALFA-EPBX 10,000 UNIT/ML VIAL SQ SCH (21:31)
[2022-11-12] MEDS: LATANOPROST EYE DROP 0.005% 2.5 ML BOTTLE EACHEYE SCH (21:32)
[2022-11-12] MEDS: TAMSULOSIN 0.4 MG CAP.SR.24H GT SCH (21:32)
[2022-11-12] MEDS: INSULIN GLARGINE, 100 UNIT/ML CARTRIDGE SQ SCH (21:33)
[2022-11-13] VITALS: BP 143/63
[2022-11-13] MEDS: IPRATROPIUM NEB FS 0.5 MG/2.5 ML AMPUL.NEB NEB SCH ×4 (00:40→20:00)
[2022-11-13] MEDS: ALBUTEROL FS 2.5 MG/0.5 ML VIAL.NEB NEB SCH ×4 (00:40→20:00)
[2022-11-13] MEDS: METOCLOPRAMIDE HCL 10 MG TABLET GT SCH ×3 (05:02→21:26)
[2022-11-13] MEDS: GLUCERNA 1.2 1,000 ML BOTTLE GT PRN ×2 (05:39→14:37)
[2022-11-13] MEDS: LEVOTHYROXINE SODIUM 125 MCG TABLET GT SCH (05:39)
[2022-11-13] MEDS: BLOOD SUGAR DIAGNOSTIC 1 EACH STRIP IN SCH ×3 (05:39→21:26)
[2022-11-13] MEDS: INSULIN ASPART/LISPRO 100 UNIT/ML CARTRIDGE SQ PRN ×3 (05:40→21:28)
[2022-11-13 08:03] VITALS: BP 121/59
[2022-11-13] MEDS: HYDROGEN PEROXIDE 480 ML BOTTLE TP SCH ×2 (09:42→20:00)
[2022-11-13] MEDS: FERROUS SULFATE - FOR SA ONLY 330 MG/7.5 ML UDC GT SCH ×3 (09:52→17:05)
[2022-11-13] MEDS: CICLOPIROX 8% TP SCH (09:52)
[2022-11-13] MEDS: CHOLESTYRAMINE/ASPARTAME 4 G/PKT PACKET GT SCH (09:52)
[2022-11-13] MEDS: APIXABAN 2.5 MG TABLET GT SCH ×2 (09:52→17:05)
[2022-11-13] MEDS: ACIDOPHILUS/BULGARICUS 1 EACH TAB.CHEW GT SCH ×2 (09:52→17:05)
[2022-11-13] MEDS: VIT B CMPLX 3/FA/VIT C/BIOTIN 1 TAB TABLET GT SCH (09:52)
[2022-11-13] MEDS: LEVETIRACETAM 500 MG/5 ML GT SCH ×2 (09:52→21:26)
[2022-11-13] MEDS: JANUVIA 25 MG GT SCH (09:52)
[2022-11-13] MEDS: BACLOFEN 5 MG GT SCH ×2 (09:52→17:05)
[2022-11-13] MEDS: FAMOTIDINE (20 MG) 20 MG TABLET GT SCH (09:52)
[2022-11-13] MEDS: SIROLIMUS 1 MG GT SCH (09:52)
[2022-11-13] MEDS: Z GUARD REMEDY 4 OZ OINT TP SCH ×2 (09:53→21:26)
[2022-11-13] MEDS: VITAMINS A AND D 56.7 GM TUBE TP SCH ×2 (09:53→21:26)
[2022-11-13 12:11] VITALS: BP 118/65
[2022-11-13] MEDS: DIGOXIN 0.125 MG TABLET GT SCH (12:36)
--- NOTE | 2022-11-13 14:19 | NUR ---
Resident son was informed if he would like to face time with dad today. son replied its ok I will be going over to visit him on Tuesday.
[2022-11-13 20:09] VITALS: BP 134/59
[2022-11-13] MEDS: LATANOPROST EYE DROP 0.005% 2.5 ML BOTTLE EACHEYE SCH (21:26)
[2022-11-13] MEDS: TAMSULOSIN 0.4 MG CAP.SR.24H GT SCH (21:26)
[2022-11-13] MEDS: INSULIN GLARGINE, 100 UNIT/ML CARTRIDGE SQ SCH (21:27)
[2022-11-14] MEDS: IPRATROPIUM NEB FS 0.5 MG/2.5 ML AMPUL.NEB NEB SCH ×3 (01:50→13:20)
[2022-11-14] MEDS: ALBUTEROL FS 2.5 MG/0.5 ML VIAL.NEB NEB SCH ×3 (01:50→13:20)
[2022-11-14] MEDS: LEVOTHYROXINE SODIUM 125 MCG TABLET GT SCH (05:13)
[2022-11-14] MEDS: METOCLOPRAMIDE HCL 10 MG TABLET GT SCH ×2 (05:13→13:06)
[2022-11-14] MEDS: BLOOD SUGAR DIAGNOSTIC 1 EACH STRIP IN SCH ×2 (05:15→13:17)
[2022-11-14] MEDS: INSULIN ASPART/LISPRO 100 UNIT/ML CARTRIDGE SQ PRN (05:16)
[2022-11-14 07:37] VITALS: BP 112/51
[2022-11-14] MEDS: HYDROGEN PEROXIDE 480 ML BOTTLE TP SCH (09:19)
[2022-11-14] MEDS: FERROUS SULFATE - FOR SA ONLY 330 MG/7.5 ML UDC GT SCH ×3 (09:30→17:00)
[2022-11-14] MEDS: JANUVIA 25 MG GT SCH (09:30)
[2022-11-14] MEDS: VITAMINS A AND D 56.7 GM TUBE TP SCH (09:30)
[2022-11-14] MEDS: SIROLIMUS 1 MG GT SCH (09:31)
[2022-11-14] MEDS: Z GUARD REMEDY 4 OZ OINT TP SCH (09:31)
[2022-11-14] MEDS: FAMOTIDINE (20 MG) 20 MG TABLET GT SCH (09:32)
[2022-11-14] MEDS: CHOLESTYRAMINE/ASPARTAME 4 G/PKT PACKET GT SCH (09:35)
[2022-11-14] MEDS: CICLOPIROX 8% TP SCH (09:36)
[2022-11-14] MEDS: BACLOFEN 5 MG GT SCH ×2 (09:36→17:00)
[2022-11-14] MEDS: VIT B CMPLX 3/FA/VIT C/BIOTIN 1 TAB TABLET GT SCH (09:37)
[2022-11-14] MEDS: ACIDOPHILUS/BULGARICUS 1 EACH TAB.CHEW GT SCH ×2 (09:38→17:00)
[2022-11-14] MEDS: LEVETIRACETAM 500 MG/5 ML GT SCH (09:38)
[2022-11-14] MEDS: APIXABAN 2.5 MG TABLET GT SCH ×2 (09:38→17:00)
[2022-11-14 12:12] VITALS: BP 121/55
[2022-11-14] MEDS: DIGOXIN 0.125 MG TABLET GT SCH (13:00)
--- NOTE | 2022-11-14 16:00 | NUR ---
Patients' desaturating at this time, 02 sat 84% only, he is cold and clammy, lethargic. Patient on vent., suctioned, has blood tinged in his secretions, on routine eliquis. RT put up his 02 to 100%, 02 sat went up to 100% at this time. Patient has been bradycardic today, his HR 0N 50s', Digoxin med held this afternoon. Kept HOB elevated 45 degrees at this time. Latest V/S 157/49, temp. 98.4, RR -18. Notified Dr. Fritz with new orders to do new sets of labs, CBC,BMP, Dig level now. Noted and carried out. Patient kept safe and comfortable, closely monitored.
--- NOTE | 2022-11-14 16:35 | NUR ---
Dr. Fritz wanted to follow up with Dr. Alicea, notified Dr. Alicea of patients' episode of desaturation, cold and clammy, bradycardic. He ordered stat portable chest x-ray and ABG. Noted and carried out. Called and spoke to patients' son Trevon regarding his dads' change of condition. Patient latest 02 sat now is 95% on 02 at 50%. Patients' BS checked too 120. After patient repositioned, looks better at this time, incontinent of bowel and bladder function, voided and had BM today. Patient continue to monitored.
[2022-11-14 17:00] LABS: BASOPHILS % (AUTO) 0.1 % (0.0-2.0); EOSINOPHILS % (AUTO) 0.5 % (0.0-6.0); HEMATOCRIT 33 % (39-51); HEMOGLOBIN 9.6 g/dL (13.5-17.5); LYMPHOCYTES # (AUTO) 0.9 K/uL (0.8-4.8); LYMPHOCYTES % (AUTO) 9.9 % (20.0-44.0); MEAN CORPUSCULAR HGB CONC 29 g/dl (31.0-36.0); MEAN CORPUSCULAR VOLUME 95 fL (80-96); MONOCYTES # (AUTO) 1.2 K/uL (0.1-1.30); NEUTROPHILS # (AUTO) 6.9 K/uL (1.8-8.9); NEUTROPHILS % (AUTO) 76.5 % (43.0-81.0); PLATELET COUNT (AUTO) 117 K/uL (150-450); RED BLOOD CELL COUNT(AUTO) 3.44 MIL/uL (4.5-6.0)
[2022-11-14 17:05] LABS: CALCIUM, SERUM 10.1 mg/dL (8.5-10.1); CARBON DIOXIDE 30 mmol/L (21-32); CHLORIDE 90 mmol/L (98-107); CREATININE 3.2 mg/dL (0.6-1.3); GLUCOSE 116 mg/dL (74-106); SODIUM SERUM 128 mmol/L (136-145); UREA NITROGEN, BLOOD 77 mg/dL (7-18)
[2022-11-14 17:19] LABS: ABG BASE EXCESS 5.1 mmol/L; ABG OXYGEN SATURATION 95.7 % (92.0-98.5); ABG PO2 84.9 mmHg (75.0-100.0); COHb 1.4 % (0.5-1.5); MetHb 0.1 % (0.0-1.5); O2Hb 94.3 % (94.0-97.0); PEEP,BG 5 cm H2O; SITE, ABG Right Radial; VT, ABG 500 mL
[2022-11-14 17:27] LABS: POTASSIUM 6.5 mmol/L (3.5-5.1)
--- NOTE | 2022-11-14 17:43 | NUR ---
Lab called and relayed critical lab result of K+ 6.5, called and notified Dr. Fritz with order to transfer stat to ER and notify Dr. Krys Mak. Notified ER nurse that patient will be transfer stat to ER, patient to be in Rm #[id number]. Called and notified Dr. Krys Mak, he called back and aware that pt transferred to ER.
--- NOTE | 2022-11-14 18:00 | NUR ---
Patient transferred to ER via his bed accompanied by RT and JITNEY DRIVER. Notified patient's son Trevon that dad is transferred to ER for critical lab result K+ 6.5.
--- NOTE | 2022-11-14 18:00 | NUR ---
COTTON INSPECTOR MEDICATION NOTES 1700 MEDS HELD, PATIENT TRANSFERRED DURING THIS TIME FRAME TO ER FOR ELEVATED POTASSIUM.
[2022-11-14] MEDS ORDERED: EPOE40007 SQ (19:00)
[2022-11-14] MEDS ORDERED: GUAI100S11 GT (19:00)
[2022-11-14] MEDS ORDERED: PETR113O TP (19:00)
[2022-11-14] MEDS ORDERED: IPRA0.2S9 IH (19:00)
[2022-11-14] MEDS ORDERED: VITA1TAB56 GT (19:00)
[2022-11-14] MEDS ORDERED: ALBU1.257 IH (19:00)
[2022-11-14] MEDS ORDERED: BACL10TA GT (19:00)
[2022-11-14] MEDS ORDERED: METO10TA3 GT (19:00)
[2022-11-14] MEDS ORDERED: ALBU2.5V38 IH (19:00)
[2022-11-14] MEDS ORDERED: ACID1TAB12 GT (19:00)
[2022-11-14] MEDS ORDERED: ALLA266C2 TP (19:00)
[2022-11-14] MEDS ORDERED: CICL6.6S5 TP (19:00)
[2022-11-14 19:55] LABS: DIGOXIN 2.38 ng/mL (0.90-2.00)
[2022-11-14 19:59] LABS: BAND % (MANUAL) 2 % (0.0-5.0); EOSINOPHILS % (MANUAL) 1 % (0-4); LYMPHOCYTES % (MANUAL) 7 % (16-48); MONOCYTES % (MANUAL) 5 % (0-11.0); NEUTROPHILS % (MANUAL) 85 (42-76)
[2022-11-18] MEDS ORDERED: VANC125C11 PO (13:54)
[2022-12-06] MEDS ORDERED: TUBERCULIN,PURIF.PROT.DERIV. 5 TU/0.1 ML VIAL ID SCH (09:00)
== END 2022-11-14 17:55 | disposition short-term general hospital (02) | DRG 207 ==
LOC: SA → UNDOADMIN 10-19 04:35
PROVIDERS: ADMIT Internal Medicine; ATTEND Internal Medicine
PROC: 5A1955Z Respiratory Ventilation, Greater than 96 Consecutive Hours (ICD-10-PCS; principal; 2022-10-17)
PROC: 05H933Z Insertion of Infusion Device into Right Brachial Vein, Percutaneous Approach (ICD-10-PCS; 2022-11-06)
DX: J96.10 Chronic respiratory failure, unspecified whether with hypoxia or hypercapnia (principal); G92.8 Other toxic encephalopathy; D68.59 Other primary thrombophilia; E44.0 Moderate protein-calorie malnutrition; G93.1 Anoxic brain damage, not elsewhere classified; I31.39 Other pericardial effusion (noninflammatory); I48.20 Chronic atrial fibrillation, unspecified; I50.32 Chronic diastolic (congestive) heart failure; Z94.0 Kidney transplant status; Z99.11 Dependence on respirator [ventilator] status; N17.9 Acute kidney failure, unspecified; T86.12 Kidney transplant failure; D63.8 Anemia in other chronic diseases classified elsewhere; E03.9 Hypothyroidism, unspecified; E11.22 Type 2 diabetes mellitus with diabetic chronic kidney disease; E11.43 Type 2 diabetes mellitus with diabetic autonomic (poly)neuropathy; E78.5 Hyperlipidemia, unspecified; G40.909 Epilepsy, unspecified, not intractable, without status epilepticus; I25.2 Old myocardial infarction; I70.0 Atherosclerosis of aorta; J44.9 Chronic obstructive pulmonary disease, unspecified; K31.84 Gastroparesis; I11.0 Hypertensive heart disease with heart failure; N40.0 Benign prostatic hyperplasia without lower urinary tract symptoms; R13.10 Dysphagia, unspecified; Z20.822 Contact with and (suspected) exposure to COVID-19; Z74.01 Bed confinement status; Z86.011 Personal history of benign neoplasm of the brain; I69.398 Other sequelae of cerebral infarction; Z79.623 Long term (current) use of mammalian target of rapamycin (mTOR) inhibitor; Z87.440 Personal history of urinary (tract) infections; Z90.5 Acquired absence of kidney; Z93.0 Tracheostomy status; Z93.1 Gastrostomy status; M89.8X9 Other specified disorders of bone, unspecified site; L60.3 Nail dystrophy; K80.20 Calculus of gallbladder without cholecystitis without obstruction; E11.65 Type 2 diabetes mellitus with hyperglycemia; M81.0 Age-related osteoporosis without current pathological fracture; L98.8 Other specified disorders of the skin and subcutaneous tissue; M24.572 Contracture, left ankle; M24.571 Contracture, right ankle
CPT/HCPCS: 31720; 36410; 36415; 36600; 71045-TC; 74018; 80048-TC; 80076-TC; 80162-TC; 81001; 82330; 82803-TC; 82962-TC; 83735-TC; 84100-TC; 85025-TC; 85027-TC; 85652-TC; 86580-TC; 87040-TC; 87081-TC; 87086-TC; 93307-TC; 94003-TC; 94760-TC; 94762-TC; 94799-TC; 99082-TC; A4623; A7526; J0692; J0885; J1815; J2543; J3370; J7030; J7060; J8597; U0003

== ENCOUNTER 2022-11-06 11:32 | Outpatient (CLI) | payer MEDICARE, OTHER | END 2022-11-06 23:59 | disposition home or self-care (01) | LOC: CT 11:32 | PROVIDERS: ATTEND Internal Medicine | DX: R14.0 Abdominal distension (gaseous) (principal); K80.20 Calculus of gallbladder without cholecystitis without obstruction; J90 Pleural effusion, not elsewhere classified; I51.7 Cardiomegaly; N13.30 Unspecified hydronephrosis; R18.8 Other ascites; M47.817 Spondylosis without myelopathy or radiculopathy, lumbosacral region; I70.1 Atherosclerosis of renal artery; Z94.0 Kidney transplant status ==

== ENCOUNTER 2022-11-14 18:07 | Inpatient (IN) | payer MEDICARE, OTHER ==
[~2022-11-14] VITALS: Ht 170.2 cm; Wt 85.7 kg
--- NOTE | 2022-11-14 18:30 | NUR ---
DR WOODARD SEEN PT FOR EVAL
--- NOTE | 2022-11-14 18:32 | NUR ---
PORTEX 8, AC-16, TV-500, FIO2-50%, PEEP-5
--- NOTE | 2022-11-14 18:54 | NUR ---
COVID SWAB COLLECTED AND SENT TO LAB
--- NOTE | 2022-11-14 18:59 | NUR ---
MOVE SHEET SUBMITTED.
[2022-11-14] MEDS ORDERED: CALCIUM CHLORIDE 1,000 MG/10 ML DISP.SYRIN IV ONE (19:00)
[2022-11-14] MEDS ORDERED: PETR113O TP (19:00)
[2022-11-14] MEDS ORDERED: SODIUM POLYSTYRENE SULFONATE 15 G/60 ML BOTTLE ONE ×2 (19:00→22:45)
[2022-11-14] MEDS ORDERED: METO10TA3 GT (19:00)
[2022-11-14] MEDS ORDERED: ACID1TAB12 GT (19:00)
[2022-11-14] MEDS ORDERED: CICL6.6S5 TP (19:00)
[2022-11-14] MEDS ORDERED: GUAI100S11 GT (19:00)
[2022-11-14] MEDS ORDERED: SODIUM POLYSTYRENE SULFONATE 15 G/60 ML BOTTLE GT ONE ×2 (19:00→20:00)
[2022-11-14] MEDS ORDERED: DEXTROSE 50%-WATER 50 ML DISP.SYRIN IV ONE (19:00)
[2022-11-14] MEDS ORDERED: BACL10TA GT (19:00)
[2022-11-14] MEDS ORDERED: VITA1TAB56 GT (19:00)
[2022-11-14] MEDS ORDERED: ALLA266C2 TP (19:00)
[2022-11-14] MEDS ORDERED: SODIUM BICARBONATE SYR 50 MEQ/50 ML DISP.SYRIN IV ONE (19:00)
[2022-11-14] MEDS ORDERED: ALBU1.257 IH (19:00)
[2022-11-14] MEDS ORDERED: INSULIN REGULAR, HUMAN 100 UNIT/ML 10 ML VIAL IV ONE (19:00)
[2022-11-14] MEDS ORDERED: ALBU2.5V38 IH (19:00)
[2022-11-14] MEDS ORDERED: EPOE40007 SQ (19:00)
[2022-11-14] MEDS ORDERED: IPRA0.2S9 IH (19:00)
[2022-11-14] MEDS ORDERED: DEXTROSE 50%-WATER 50 ML DISP.SYRIN ONE (19:01)
[2022-11-14] MEDS ORDERED: CALCIUM CHLORIDE 1,000 MG/10 ML DISP.SYRIN ONE (19:01)
[2022-11-14] MEDS ORDERED: SODIUM BICARBONATE SYR 50 MEQ/50 ML DISP.SYRIN ONE (19:01)
[2022-11-14 19:12] LABS: CALCIUM, SERUM 9.8 mg/dL (8.5-10.1); CARBON DIOXIDE 31 mmol/L (21-32); CHLORIDE 90 mmol/L (98-107); CREATININE 3.2 mg/dL (0.6-1.3); GLUCOSE 110 mg/dL (74-106); SODIUM SERUM 128 mmol/L (136-145); UREA NITROGEN, BLOOD 79 mg/dL (7-18)
[2022-11-14 19:13] LABS: POTASSIUM 6.3 mmol/L (3.5-5.1)
[2022-11-14] MEDS ORDERED: ACETAMINOPHEN 650 MG/20.3 ML UDC GT PRN (19:30)
[2022-11-14] MEDS ORDERED: BISACODYL SUPP (10 MG) 10 MG/SUPP.RECT SUPP.RECT RC PRN (19:30)
[2022-11-14] MEDS ORDERED: POLYETHYLENE GLYCOL 3350 17 GM POWD.PACK GT PRN (19:30)
[2022-11-14] MEDS ORDERED: GLUCERNA 1.2 1,000 ML BOTTLE NG PRN (19:30)
[2022-11-14] MEDS ORDERED: GUAIFENESIN 300 MG/15 ML UDC GT PRN (19:30)
--- NOTE | 2022-11-14 19:53 | NUR ---
RECEIVED ORDERS FROM DR MCCOY.
[2022-11-14 19:58] LABS: BASOPHILS % (AUTO) 0.1 % (0.0-2.0); EOSINOPHILS % (AUTO) 0.5 % (0.0-6.0); HEMATOCRIT 27 % (39-51); HEMOGLOBIN 8.3 g/dL (13.5-17.5); LYMPHOCYTES # (AUTO) 0.5 K/uL (0.8-4.8); LYMPHOCYTES % (AUTO) 5.6 % (20.0-44.0); MEAN CORPUSCULAR HGB CONC 30 g/dl (31.0-36.0); MEAN CORPUSCULAR VOLUME 94 fL (80-96); MONOCYTES # (AUTO) 0.8 K/uL (0.1-1.30); MONOCYTES % (AUTO) 8.9 % (2.0-12.0); NEUTROPHILS # (AUTO) 7.3 K/uL (1.8-8.9); NEUTROPHILS % (AUTO) 84.9 % (43.0-81.0); PLATELET COUNT (AUTO) 110 K/uL (150-450); RED BLOOD CELL COUNT(AUTO) 2.91 MIL/uL (4.5-6.0); WHITE BLOOD COUNT (AUTO) 8.6 K/uL (4.3-11.0)
[2022-11-14] MEDS ORDERED: IV D5/ 0.9% NACL 1,000 ML IV SCH (20:00)
[2022-11-14] MEDS ORDERED: MAGNESIUM HYDROXIDE 30 ML UDC PO PRN (20:00)
[2022-11-14] MEDS ORDERED: ONDANSETRON HCL/PF 4 MG/2 ML VIAL IVP PRN (20:00)
[2022-11-14] MEDS ORDERED: ACETAMINOPHEN 325 MG TABLET PO PRN (20:00)
[2022-11-14] MEDS ORDERED: MAG HYDROX/AL HYDROX/SIMETH 30 ML UDC PO PRN (20:00)
[2022-11-14] MEDS ORDERED: Z GUARD REMEDY 4 OZ OINT TP PRN (20:00)
--- NOTE | 2022-11-14 20:00 | NUR ---
F/C 16FR INSERTED URINE COLLECTED AND SENT TO LAB
[2022-11-14] MEDS ORDERED: BLOOD SUGAR DIAGNOSTIC 1 EACH STRIP IN SCH (21:00)
--- NOTE | 2022-11-14 21:07 | NUR ---
REPORT GIVEN TO ANNI ERWIN
--- NOTE | 2022-11-14 21:24 | NUR ---
PT TRANSFERRED TO [facility] 116-1 VIA ACLS PROTOCOL WITH RT.
[2022-11-14] MEDS ORDERED: ONDANSETRON 4 MG TAB.RAPDIS GT PRN (21:30)
[2022-11-14 22:00] VITALS: BP 114/58
[2022-11-14] MEDS: INSULIN GLARGINE, 100 UNIT/ML CARTRIDGE SQ SCH (22:00)
[2022-11-14] MEDS: LATANOPROST EYE DROP 0.005% 2.5 ML BOTTLE EACHEYE SCH (22:00)
[2022-11-14] MEDS: TAMSULOSIN 0.4 MG CAP.SR.24H GT SCH (22:33)
[2022-11-14] MEDS: LEVETIRACETAM (250 MG) 250 MG TABLET PO SCH (22:33)
[2022-11-14] MEDS: METOCLOPRAMIDE HCL 10 MG TABLET GT SCH (22:33)
[2022-11-14] MEDS: BLOOD SUGAR DIAGNOSTIC 1 EACH STRIP VI SCH (22:39)
[2022-11-14] MEDS ORDERED: SODIUM POLYSTYRENE SULFONATE 15 G/60 ML BOTTLE PO ONE (23:00)
[2022-11-15] VITALS (22 sets, daily range): BP systolic 103–200; BP diastolic 51–109
[2022-11-15] MEDS: ALBUTEROL FS 2.5 MG/3 ML VIAL.NEB IH SCH ×5 (00:12→19:49)
[2022-11-15] MEDS: IPRATROPIUM NEB FS 0.5 MG/2.5 ML AMPUL.NEB IH SCH ×5 (00:12→19:49)
[2022-11-15] MEDS ORDERED: GLUCERNA 1.2 1,000 ML BOTTLE NG PRN (01:56)
[2022-11-15] MEDS: METOCLOPRAMIDE HCL 10 MG TABLET GT SCH ×3 (04:24→21:50)
--- NOTE | 2022-11-15 05:35 | NUR ---
ZELDA RN NOTES PT NOTED WITH HR OF 50 AND SUDDENLY GOING INTO 40'S. RUSHED TO CHECK PT, SUCTIONED HIM, NOTED PT WITH AGONAL BREATHING; HR WENT DOWN TO 35. RR CALLED AT 0540. TEAM ARRIVED AND BAGGED THE PT. BLOOD SUGAR CHECKED 168, BP ON RLL 172/68. UNABLE TO GET BP ON DEANNE. RT TEAM AT BEDSIDE
--- NOTE | 2022-11-15 05:35 | NUR ---
0535 Noted patient bradycardic in the 30s on the monitor, immediately checked on patient and noted him with agonal breathing and skin pale in color. O2 saturation in the 80s. Suctioned with copious amount of frothy light brown secretions. Ambu bag initiated. PIECE WORK INSPECTOR called.
--- NOTE | 2022-11-15 05:45 | NUR ---
[id number] Paged LEKNA Briggs at this time awaiting call back.
--- NOTE | 2022-11-15 05:50 | NUR ---
ZELDA HUTTON NOTE PT BP 217/112; LABS ARE DRAWN; WILL CONTINUE TO MONITOR Addendum: 11/15/22 at 0607 by MEET REED RN RT TEAM STILL AT BEDSIDE; NO RESPIRATORY DISTRESS NOTED; O2 SAT @ 100% AT THIS TIME
--- NOTE | 2022-11-15 06:15 | NUR ---
0615 LENKA Briggs called back and updated on patient's change of condition with order to transfer to ICU. Order noted. House sup notified.
[2022-11-15 06:36] LABS: BASOPHILS % (AUTO) 0.1 % (0.0-2.0); EOSINOPHILS % (AUTO) 0.5 % (0.0-6.0); HEMATOCRIT 32 % (39-51); HEMOGLOBIN 9.2 g/dL (13.5-17.5); LYMPHOCYTES # (AUTO) 2.1 K/uL (0.8-4.8); LYMPHOCYTES % (AUTO) 16.6 % (20.0-44.0); MEAN CORPUSCULAR HGB CONC 29 g/dl (31.0-36.0); MEAN CORPUSCULAR VOLUME 96 fL (80-96); MONOCYTES # (AUTO) 1.2 K/uL (0.1-1.30); MONOCYTES % (AUTO) 8.9 % (2.0-12.0); NEUTROPHILS # (AUTO) 9.5 K/uL (1.8-8.9); NEUTROPHILS % (AUTO) 73.9 % (43.0-81.0); PLATELET COUNT (AUTO) 135 K/uL (150-450); WHITE BLOOD COUNT (AUTO) 12.9 K/uL (4.3-11.0)
--- NOTE | 2022-11-15 06:40 | NUR ---
ZELDA RN NOTE REPORT GIVEN TO CHARGE NURSE ED . TRANSFERED PT TO ICU WITH ACLS PROTOCOL. RT AT BED SIDE FOR TRANSFER. ICU ROOM # [id number].
[2022-11-15 06:55] LABS: CALCIUM, SERUM 10.1 mg/dL (8.5-10.1); CARBON DIOXIDE 30 mmol/L (21-32); CHLORIDE 92 mmol/L (98-107); CREATININE 3.3 mg/dL (0.6-1.3); GLUCOSE 188 mg/dL (74-106); MAGNESIUM 3.2 mg/dL (1.8-2.4); POTASSIUM 5.6 mmol/L (3.5-5.1); SODIUM SERUM 131 mmol/L (136-145)
[2022-11-15 06:57] LABS: PHOSPHORUS 8.8 mg/dL (2.5-4.9)
[2022-11-15 06:58] LABS: UREA NITROGEN, BLOOD 82 mg/dL (7-18)
--- NOTE | 2022-11-15 07:30 | NUR ---
RN OPENING NOTE PT RECEIVED IN BED. PT IS ON MECHANICAL VENT WITH ALL PRESCRIBED SETTINGS TOLERATING WELL WITH O2 SAT 96% NO SIGNS OF LABORED BREATHING OR DISTRESS. PT IS OBTUNDED AND PERIODICALLY OPENS EYES TO VOICE. PT TELE MONITORED WITH SAUD TF HELD AT THIS TIME AND WILL CONSULT WITH HOSPITALIST ABOUT RESTARTING FEED. FC IS IN PLACE DRAINING URINE TO GRAVITY. IV ACCESS R UA ML NO FLUIDS INFUSING AT THIS TIME; L ARM HD ACCESS PER PROVIDERS NOTE NOT FUNCTIONAL AT THIS TIME. BED IS LOCKED IN LOWEST POSITION X2 BED RAILS UP AND ALL HOSPITAL SAFETY MEASURES ARE IN PLACE. WILL CONTINUE TO MONITOR THIS SHIFT.
[2022-11-15] MEDS ORDERED: IV NS 0.9% 1,000 ML IV SCH (08:00)
[2022-11-15] MEDS: BLOOD SUGAR DIAGNOSTIC 1 EACH STRIP VI SCH ×4 (08:30→22:36)
--- NOTE | 2022-11-15 08:30 | NUR ---
RN NOTE: FLUIDS AND TF PER MD, PT WILL HAVE NS @75ML/HR AND WILL RESUME TF TODAY.
[2022-11-15] MEDS ORDERED: IV NS 0.9% 1,000 ML IV PRN (08:31)
[2022-11-15] MEDS: LEVETIRACETAM (250 MG) 250 MG TABLET PO SCH ×2 (08:36→21:50)
[2022-11-15] MEDS: ACIDOPHILUS/BULGARICUS 1 EACH TAB.CHEW GT SCH ×2 (08:36→16:43)
[2022-11-15] MEDS: FERROUS SULFATE (325 MG) 325 MG/TAB TABLET GT SCH ×3 (08:36→16:43)
[2022-11-15] MEDS: LEVOTHYROXINE SODIUM 125 MCG TABLET GT SCH (08:36)
[2022-11-15] MEDS: BACLOFEN (10 MG) 10 MG TABLET GT SCH ×2 (08:37→16:43)
[2022-11-15] MEDS: DIGOXIN 0.125 MG TABLET GT SCH ×2 (08:37→08:56)
[2022-11-15] MEDS: CHOLESTYRAMINE/ASPARTAME 4 G/PKT PACKET GT SCH (08:39)
[2022-11-15] MEDS: FAMOTIDINE (20 MG) 20 MG TABLET GT SCH (08:39)
[2022-11-15] MEDS: APIXABAN 2.5 MG TABLET GT SCH ×2 (08:39→16:44)
[2022-11-15] MEDS ORDERED: SITAGLIPTIN PHOSPHATE 50 MG TABLET GT SCH (09:00)
[2022-11-15] MEDS ORDERED: EPOETIN ALFA-EPBX 4,000 UNIT/ML VIAL SQ SCH (09:00)
[2022-11-15] MEDS ORDERED: IV D5/ 0.9% NACL 1,000 ML IV SCH (09:00)
[2022-11-15] MEDS ORDERED: SODIUM POLYSTYRENE SULFONATE 15 G/60 ML BOTTLE PO ONE (09:00)
[2022-11-15] MEDS ORDERED: LINAGLIPTIN 5 MG TABLET PO SCH (09:00)
--- NOTE | 2022-11-15 09:00 | NUR ---
RN NOTE: NEPHRO PER , PT WILL NOT HAVE HD AND WILL CONTINUE CURRENT MED REGIMENT OF KAYEXALATE
[2022-11-15] MEDS: INSULIN REGULAR, HUMAN 100 UNIT/ML 3 ML VIAL SQ PRN ×3 (09:04→16:47)
[2022-11-15] MEDS: SEVELAMER CARBONATE 800 MG POWD.PACK GT SCH ×3 (09:22→16:43)
[2022-11-15 09:33] LABS: BASOPHILS % (AUTO) 0.1 % (0.0-2.0); EOSINOPHILS % (AUTO) 0.1 % (0.0-6.0); HEMATOCRIT 28 % (39-51); HEMOGLOBIN 8.1 g/dL (13.5-17.5); LYMPHOCYTES # (AUTO) 0.1 K/uL (0.8-4.8); LYMPHOCYTES % (AUTO) 0.7 % (20.0-44.0); MEAN CORPUSCULAR HGB CONC 30 g/dl (31.0-36.0); MEAN CORPUSCULAR VOLUME 94 fL (80-96); MONOCYTES # (AUTO) 0.9 K/uL (0.1-1.30); MONOCYTES % (AUTO) 7.3 % (2.0-12.0); NEUTROPHILS # (AUTO) 11.1 K/uL (1.8-8.9); NEUTROPHILS % (AUTO) 91.8 % (43.0-81.0); PLATELET COUNT (AUTO) 107 K/uL (150-450); RED BLOOD CELL COUNT(AUTO) 2.93 MIL/uL (4.5-6.0); WHITE BLOOD COUNT (AUTO) 12.1 K/uL (4.3-11.0)
[2022-11-15 09:42] LABS: CALCIUM, SERUM 9.5 mg/dL (8.5-10.1); CARBON DIOXIDE 29 mmol/L (21-32); CHLORIDE 94 mmol/L (98-107); CREATININE 3.3 mg/dL (0.6-1.3); GLUCOSE 126 mg/dL (74-106); PHOSPHORUS 7.9 mg/dL (2.5-4.9); POTASSIUM 5.3 mmol/L (3.5-5.1); SODIUM SERUM 131 mmol/L (136-145)
[2022-11-15 09:44] LABS: UREA NITROGEN, BLOOD 82 mg/dL (7-18)
[2022-11-15] MEDS: LINAGLIPTIN 5 MG TABLET PO SCH (10:00)
--- NOTE | 2022-11-15 10:00 | NUR ---
RN NOTE: TRADJENTA MEDICATION GIVEN PER PREVIOUS ORDER @0900.
[2022-11-15] MEDS: IV NS 0.9% 1,000 ML IV PRN ×2 (10:54→23:46)
[2022-11-15 12:30] LABS: ALANINE AMINOTRANSFERASE 28 U/L (12-78); ALKALINE PHOSPHATASE 178 U/L (46-116); ASPARTATE AMINOTRANSFERASE 53 U/L (15-37); BILIRUBIN,DIRECT 0.4 mg/dL (0.0-0.2); BILIRUBIN,TOTAL 0.7 mg/dL (0.2-1.0); CALCIUM, SERUM 9.8 mg/dL (8.5-10.1); CARBON DIOXIDE 30 mmol/L (21-32); CHLORIDE 92 mmol/L (98-107); CREATININE 3.3 mg/dL (0.6-1.3); GLUCOSE 107 mg/dL (74-106); POTASSIUM 5.4 mmol/L (3.5-5.1); SODIUM SERUM 131 mmol/L (136-145); TOTAL PROTEIN, SERUM 8.3 g/dL (6.4-8.2)
[2022-11-15 12:36] LABS: UREA NITROGEN, BLOOD 80 mg/dL (7-18)
[2022-11-15] MEDS: NEPRO 1,000 ML BOTTLE GT PRN (14:29)
[2022-11-15] MEDS: EPOETIN ALFA-EPBX 10,000 UNIT/ML VIAL SQ SCH (15:46)
[2022-11-15] MEDS: SIROLIMUS 1 MG GT SCH (15:46)
--- NOTE | 2022-11-15 18:42 | NUR ---
RN CLOSING NOTE PT IN BED. PT IS ON MECHANICAL VENT WITH ALL PRESCRIBED SETTINGS TOLERATING WELL WITH O2 SAT 95% NO SIGNS OF LABORED BREATHING OR DISTRESS. PT IS OBTUNDED AND PERIODICALLY OPENS EYES TO VOICE. PT TELE MONITORED WITH A.FIB. TF INFUSING AT 30ML/HR. FC IS IN PLACE DRAINING URINE TO GRAVITY -500ML. PT HAD 2 BM THIS SHIFT. IV ACCESS R UA ML INFUSING WITH NS @75ML/HR; L ARM HD ACCESS PER PROVIDERS NOTE NOT FUNCTIONAL AT THIS TIME. BED IS LOCKED IN LOWEST POSITION X2 BED RAILS UP AND ALL HOSPITAL SAFETY MEASURES ARE IN PLACE. WILL ENDORSE TO DIRECTOR OF CORPORATE SALES FOR LOU.
--- NOTE | 2022-11-15 19:15 | NUR ---
RN OPENING NOTES RECEIVED PATIENT ON BED, OBTUNDED, ON TRACH, PORTEX # 8, WITH VENT SETTINGS AC- 12, TV- 500, FIO2-40%, PEEP- 5, AFEBRILE, NO S/S OF DISTRESS NOTED. NOTED WITH ARELIS MID LINE, FLUSHED WITH NS. RUNNING WITH NS @ 75 ML/HR. NOTED WITH G-TUBE PATENT AND INTACT, VERIFIED PLACEMENT BY AUSCULTATION, NO RESIDUAL NOTED UPON ASPIRATION RUNNING WITH NEPHRO @ 30 ML/HR, HEAD OF BED KEPT ELEVATED. NOTED. NOTED WITH DEANNE AV SHUNT NO BLEEDING NOTED. KNOX CATHETER PATENT INTACT DRAINING WITH CLEAR YELLOW URINE VIA GRAVITY. ALL SAFETY PRECAUTION PROVIDED. BED IN LOWEST POSITION, LOCKED. CALL LIGHT WITH IN REACH.
[2022-11-15] MEDS: TAMSULOSIN 0.4 MG CAP.SR.24H GT SCH (21:50)
[2022-11-15] MEDS: LATANOPROST EYE DROP 0.005% 2.5 ML BOTTLE EACHEYE SCH (21:50)
[2022-11-15] MEDS: INSULIN GLARGINE, 100 UNIT/ML CARTRIDGE SQ SCH (22:00)
--- NOTE | 2022-11-15 22:00 | NUR ---
RN NOTES PATIENT NOTED WITH BP- 192/54, PULSE 73, NOTIFIED PLUG MAKER JOSÉ LUIS RENTERIA WITH NEW ORDER HYDRALAZINE 10 MG IV PRN Q4HRS FOR SBP >170 NOTED AND CARRIED OUT.
[2022-11-15] MEDS: hydrALAZINE HCL IV 20 MG VIAL IV PRN (22:03)
[2022-11-15] MEDS: *INSULIN REGULAR(HUMULIN R)HUM 100 UNIT/ML VIAL SQ PRN (22:36)
--- NOTE | 2022-11-15 22:37 | NUR ---
RN NOTES BLOOD SUGAR 108 mg/dL,NO INSULIN COVERAGE PER SLIDING SCALE, NO S/S OF HYPOGLYCEMIA NOTED.
--- NOTE | 2022-11-15 22:41 | NUR ---
RN NOTES LANTUS 30 UNITS NOT GIVEN, BLOOD SUGAR 108 mg/dL, NO S/S OF HYPO/HYPERGLYCEMIA NOTED.
[2022-11-16] VITALS (25 sets, daily range): BP systolic 95–190; BP diastolic 35–105
[2022-11-16] MEDS: hydrALAZINE HCL IV 20 MG VIAL IV PRN (02:09)
--- NOTE | 2022-11-16 02:10 | NUR ---
RN NOTES PATIENT NOTED WITH BP- 190/87, PULSE 96, HYDRALAZINE 10 MG IV GIVEN.
[2022-11-16] MEDS: IPRATROPIUM NEB FS 0.5 MG/2.5 ML AMPUL.NEB IH SCH ×4 (02:14→20:21)
[2022-11-16] MEDS: ALBUTEROL FS 2.5 MG/3 ML VIAL.NEB IH SCH ×4 (02:14→20:20)
[2022-11-16 04:38] LABS: BASOPHILS % (AUTO) 0.2 % (0.0-2.0); EOSINOPHILS % (AUTO) 0.4 % (0.0-6.0); HEMATOCRIT 31 % (39-51); HEMOGLOBIN 9.4 g/dL (13.5-17.5); LYMPHOCYTES # (AUTO) 0.4 K/uL (0.8-4.8); LYMPHOCYTES % (AUTO) 4.2 % (20.0-44.0); MEAN CORPUSCULAR HGB CONC 30 g/dl (31.0-36.0); MEAN CORPUSCULAR VOLUME 94 fL (80-96); MONOCYTES # (AUTO) 0.6 K/uL (0.1-1.30); MONOCYTES % (AUTO) 5.8 % (2.0-12.0); NEUTROPHILS # (AUTO) 9.2 K/uL (1.8-8.9); NEUTROPHILS % (AUTO) 89.4 % (43.0-81.0); PLATELET COUNT (AUTO) 125 K/uL (150-450); RED BLOOD CELL COUNT(AUTO) 3.31 MIL/uL (4.5-6.0); WHITE BLOOD COUNT (AUTO) 10.4 K/uL (4.3-11.0)
[2022-11-16 04:55] LABS: MAGNESIUM 2.7 mg/dL (1.8-2.4); PHOSPHORUS 7.5 mg/dL (2.5-4.9)
[2022-11-16] MEDS: METOCLOPRAMIDE HCL 10 MG TABLET GT SCH ×3 (05:27→21:18)
[2022-11-16] MEDS: LEVOTHYROXINE SODIUM 125 MCG TABLET GT SCH (05:27)
--- NOTE | 2022-11-16 07:30 | NUR ---
RN OPENING NOTE PT IN BED. PT IS ON MECHANICAL VENT WITH ALL PRESCRIBED SETTINGS TOLERATING WELL WITH O2 SAT 100% NO SIGNS OF LABORED BREATHING OR DISTRESS. PT IS OBTUNDED AND PERIODICALLY OPENS EYES TO VOICE. PT TELE MONITORED WITH A.FIB. TF INFUSING AT 30ML/HR. FC IS IN PLACE DRAINING URINE TO GRAVITY. IV ACCESS R UA ML INFUSING WITH NS @75ML/HR; L ARM HD ACCESS PER PROVIDERS NOTE NOT FUNCTIONAL AT THIS TIME. BED IS LOCKED IN LOWEST POSITION X2 BED RAILS UP AND ALL HOSPITAL SAFETY MEASURES ARE IN PLACE. WILL CONTINUE TO MONITOR THIS SHIFT.
[2022-11-16] MEDS: FERROUS SULFATE (325 MG) 325 MG/TAB TABLET GT SCH ×3 (08:11→16:27)
[2022-11-16] MEDS: BLOOD SUGAR DIAGNOSTIC 1 EACH STRIP VI SCH ×4 (08:11→21:18)
[2022-11-16] MEDS: CHOLESTYRAMINE/ASPARTAME 4 G/PKT PACKET GT SCH (08:11)
[2022-11-16] MEDS: FAMOTIDINE (20 MG) 20 MG TABLET GT SCH (08:11)
[2022-11-16] MEDS: SEVELAMER CARBONATE 800 MG POWD.PACK GT SCH ×3 (08:11→16:28)
[2022-11-16] MEDS: ACIDOPHILUS/BULGARICUS 1 EACH TAB.CHEW GT SCH ×2 (08:11→16:27)
[2022-11-16] MEDS: SIROLIMUS 1 MG GT SCH (08:11)
[2022-11-16] MEDS: LEVETIRACETAM (250 MG) 250 MG TABLET PO SCH ×2 (08:12→21:18)
[2022-11-16] MEDS: BACLOFEN (10 MG) 10 MG TABLET GT SCH ×2 (08:12→16:27)
[2022-11-16] MEDS: APIXABAN 2.5 MG TABLET GT SCH ×2 (08:12→16:29)
[2022-11-16] MEDS: *INSULIN REGULAR(HUMULIN R)HUM 100 UNIT/ML VIAL SQ PRN ×2 (08:13→21:30)
[2022-11-16] MEDS: DIGOXIN 0.125 MG TABLET GT SCH (08:17)
[2022-11-16] MEDS: LINAGLIPTIN 5 MG TABLET PO SCH (08:19)
[2022-11-16 08:25] LABS: ALANINE AMINOTRANSFERASE 30 U/L (12-78); ALBUMIN 1.9 g/dL (3.4-5.0); ALKALINE PHOSPHATASE 157 U/L (46-116); ASPARTATE AMINOTRANSFERASE 53 U/L (15-37); BILIRUBIN,TOTAL 0.7 mg/dL (0.2-1.0); CALCIUM, SERUM 9.1 mg/dL (8.5-10.1); CARBON DIOXIDE 31 mmol/L (21-32); CHLORIDE 92 mmol/L (98-107); CREATININE 3.1 mg/dL (0.6-1.3); GLUCOSE 154 mg/dL (74-106); MAGNESIUM 2.8 mg/dL (1.8-2.4); PHOSPHORUS 7.7 mg/dL (2.5-4.9); POTASSIUM 3.8 mmol/L (3.5-5.1); SODIUM SERUM 133 mmol/L (136-145); TOTAL PROTEIN, SERUM 8.2 g/dL (6.4-8.2); UREA NITROGEN, BLOOD 77 mg/dL (7-18)
[2022-11-16 09:55] LABS: ABG BASE EXCESS 3.3 mmol/L; ABG OXYGEN SATURATION 89.5 % (92.0-98.5); ABG PCO2 50.4 mmHg (35.0-45.0); ABG PO2 64.7 mmHg (75.0-100.0); AaDO2 162.5 mmHg; COHb 1.7 % (0.5-1.5); MetHb 0.2 % (0.0-1.5); O2Hb 87.8 % (94.0-97.0); SITE, ABG Right Radial; VENT MODE, BG AC 12 450 40% +5
--- NOTE | 2022-11-16 09:58 | NUR ---
WOUND CARE CONSULT: PT RESTING AT THIS TIME. REVIEWED CHART, NURSING DOCUMENTATION AND PHOTOS WHICH INDICATE G TUBE SITE SLIGHT REDNESS AND SACRAL SCARRING WHICH EXTENDS TO BUTTOCKS, PRESENT ON ADMISSION. RECOMMENDATIONS MADE FOR SKIN PROTECTION. DISCUSSED WITH NURSING STAFF. [facility]. IN AGREEMENT WITH PLAN OF CARE.
--- NOTE | 2022-11-16 11:38 | NUR ---
RN NOTE: A FLUTTER NOTIFIED MD, PT WAS A FIB AND CONVERTED TO A FLUTTER. PER MD, NO INTERVENTION NEEDED
[2022-11-16] MEDS: INSULIN REGULAR, HUMAN 100 UNIT/ML 3 ML VIAL SQ PRN ×2 (12:19→16:33)
[2022-11-16] MEDS: IV NS 0.9% 1,000 ML IV PRN (13:19)
--- NOTE | 2022-11-16 17:25 | NUR ---
RN NOTE: TRANSFER REPORT GIVEN TO ANNI FONTAINE. PT STABLE AT THIS TIME AND TRANSFERRED WITH ALL MEDICATIONS
--- NOTE | 2022-11-16 17:44 | NUR ---
CUSTODIAL SUPERVISOR NOTE RECEIVED PATIENT FROM ICU AWAKE BUT OBTUNDED ON TRACK TO VENT SETTING ORDERED,ON TELE MONITOR A FLUTER HR 76 , VS TAKEN , WITH KNOX CATH TO GRAVITY WITH YELLOW COLOR URINE, RT UPPER ARM MID LINE IN PLACE ON IVF ORDERED, G TUBE WITH NEPHRO AT 30 ML PER HOUR, BED IN LOWEST AND LOCKED POSITION , VS TAKEN , SAFETY MEASURE IMPLEMENTED , CALL LIGHT WITHIN REACH , WILL CONT TO MONITOR Addendum: 11/16/22 at 1800 by ZHEN DINH RN called to dietary to bring g tube feeding nephro left a massage will monitor
[2022-11-16] MEDS: NEPRO 1,000 ML BOTTLE GT PRN (18:08)
--- NOTE | 2022-11-16 19:30 | NUR ---
VOLCANOLOGY PROFESSOR OPENING NOTE RECEIVED PT IN BED. PT IS ON MECHANICAL VENT WITH ALL PRESCRIBED SETTINGS TOLERATING WELL WITH O2 SAT 100% NO SIGNS OF LABORED BREATHING OR DISTRESS. PT IS OBTUNDED AND PERIODICALLY OPENS EYES TO VOICE. PT TELE MONITORED WITH AFIB WITH HR AT 81 BPM. TF INFUSING AT 30ML/HR. FC IS IN PLACE DRAINING URINE TO GRAVITY. IV ACCESS R UA ML INFUSING WITH NS @75ML/HR; L ARM HD ACCESS PER PROVIDERS NOTE NOT FUNCTIONAL AT THIS TIME. BED IS LOCKED IN LOWEST POSITION X2 BED RAILS UP AND ALL HOSPITAL SAFETY MEASURES ARE IN PLACE. WILL CONTINUE TO MONITOR THROUGHOUT THE SHIFT.
[2022-11-16] MEDS: LATANOPROST EYE DROP 0.005% 2.5 ML BOTTLE EACHEYE SCH (21:18)
[2022-11-16] MEDS: TAMSULOSIN 0.4 MG CAP.SR.24H GT SCH (21:18)
[2022-11-16] MEDS: INSULIN GLARGINE, 100 UNIT/ML CARTRIDGE SQ SCH (21:29)
[2022-11-17] VITALS: BP 170/76
[2022-11-17] MEDS: IPRATROPIUM NEB FS 0.5 MG/2.5 ML AMPUL.NEB IH SCH ×4 (01:10→19:46)
[2022-11-17] MEDS: ALBUTEROL FS 2.5 MG/3 ML VIAL.NEB IH SCH ×4 (01:10→19:46)
--- NOTE | 2022-11-17 01:12 | NUR ---
RN NOTE BP NOTED AT 170/76. PRN HYDRALAZINE IV 10 MG GIVEN MD ORDERED, WILL CONT TO MONITOR PT.
[2022-11-17] MEDS: hydrALAZINE HCL IV 20 MG VIAL IV PRN ×3 (01:13→21:54)
--- NOTE | 2022-11-17 02:00 | NUR ---
RN NOTE BP RECHECKED AT 165/84 HR AT 85 BPM, WILL CONT TO MONITOR.
[2022-11-17] MEDS: IV NS 0.9% 1,000 ML IV PRN ×2 (02:17→17:27)
[2022-11-17 04:00] VITALS: BP 165/84
[2022-11-17] MEDS: METOCLOPRAMIDE HCL 10 MG TABLET GT SCH ×3 (05:02→21:27)
[2022-11-17] MEDS: LEVOTHYROXINE SODIUM 125 MCG TABLET GT SCH (05:02)
--- NOTE | 2022-11-17 06:26 | NUR ---
CHARGE MASTER COORDINATOR CLOSING NOTE PT REMAINS IN BED. PT IS ON MECHANICAL VENT WITH ALL PRESCRIBED SETTINGS TOLERATING WELL WITH O2 SAT 100% NO SIGNS OF LABORED BREATHING OR DISTRESS. PT IS OBTUNDED. PT TELE MONITORED WITH AFIB WITH HR AT 80 BPM. TF INFUSING AT 30ML/HR. FC IS IN PLACE DRAINING URINE TO GRAVITY. IV ACCESS ARELIS ML INFUSING WITH NS @75ML/HR; L ARM HD ACCESS PER PROVIDERS NOTE NOT FUNCTIONAL AT THIS TIME. ALL DUE MEDS GIVEN, KEPT DRY AND CLEAN, BED IS LOCKED IN LOWEST POSITION X2 BED RAILS UP AND ALL HOSPITAL SAFETY MEASURES ARE IN PLACE. WILL ENDORSE TO AM SHIFT NURSE FOR CONTINUITY OF CARE.
[2022-11-17 06:35] LABS: BASOPHILS % (AUTO) 0.2 % (0.0-2.0); EOSINOPHILS % (AUTO) 0.1 % (0.0-6.0); HEMATOCRIT 29 % (39-51); HEMOGLOBIN 8.6 g/dL (13.5-17.5); LYMPHOCYTES # (AUTO) 0.1 K/uL (0.8-4.8); LYMPHOCYTES % (AUTO) 1.1 % (20.0-44.0); MEAN CORPUSCULAR HGB CONC 30 g/dl (31.0-36.0); MEAN CORPUSCULAR VOLUME 95 fL (80-96); MONOCYTES # (AUTO) 0.4 K/uL (0.1-1.30); MONOCYTES % (AUTO) 4.6 % (2.0-12.0); NEUTROPHILS # (AUTO) 7.3 K/uL (1.8-8.9); PLATELET COUNT (AUTO) 126 K/uL (150-450); RED BLOOD CELL COUNT(AUTO) 3.01 MIL/uL (4.5-6.0); WHITE BLOOD COUNT (AUTO) 7.7 K/uL (4.3-11.0)
[2022-11-17 06:38] LABS: CALCIUM, SERUM 8.5 mg/dL (8.5-10.1); CARBON DIOXIDE 32 mmol/L (21-32); CHLORIDE 93 mmol/L (98-107); CREATININE 3.1 mg/dL (0.6-1.3); GLUCOSE 147 mg/dL (74-106); MAGNESIUM 2.6 mg/dL (1.8-2.4); PHOSPHORUS 7.5 mg/dL (2.5-4.9); POTASSIUM 3.5 mmol/L (3.5-5.1); SODIUM SERUM 135 mmol/L (136-145); UREA NITROGEN, BLOOD 85 mg/dL (7-18)
--- NOTE | 2022-11-17 07:15 | NUR ---
MANAGER POWER OPENING NOTES Received pt awake in bed. Non verbal and unable to follow command. Respirations are equal and unlabored with no SOB. Pt is on a ventilator on prescribed settings tolerating it well. Trach is patent, intact, and in midline position. Pt is on GTF running on prescribed settings and tolerating it well. HOB elevated to 30-45 degrees. Siderails up at all times. Call light within reach. Will continue to monitor.
[2022-11-17] MEDS: BLOOD SUGAR DIAGNOSTIC 1 EACH STRIP VI SCH ×4 (07:38→21:27)
[2022-11-17] MEDS: *INSULIN REGULAR(HUMULIN R)HUM 100 UNIT/ML VIAL SQ PRN ×4 (07:40→21:41)
[2022-11-17 08:00] VITALS: BP 158/72
[2022-11-17] MEDS: LEVETIRACETAM (250 MG) 250 MG TABLET PO SCH ×2 (09:04→21:27)
[2022-11-17] MEDS: DIGOXIN 0.125 MG TABLET GT SCH (09:04)
[2022-11-17] MEDS: BACLOFEN (10 MG) 10 MG TABLET GT SCH ×2 (09:04→16:04)
[2022-11-17] MEDS: LINAGLIPTIN 5 MG TABLET PO SCH (09:04)
[2022-11-17] MEDS: FERROUS SULFATE (325 MG) 325 MG/TAB TABLET GT SCH ×3 (09:04→16:04)
[2022-11-17] MEDS: SEVELAMER CARBONATE 800 MG POWD.PACK GT SCH ×3 (09:04→16:04)
[2022-11-17] MEDS: ACIDOPHILUS/BULGARICUS 1 EACH TAB.CHEW GT SCH ×2 (09:04→16:04)
[2022-11-17] MEDS: APIXABAN 2.5 MG TABLET GT SCH ×2 (09:05→16:05)
[2022-11-17] MEDS: FAMOTIDINE (20 MG) 20 MG TABLET GT SCH (09:06)
[2022-11-17] MEDS: CHOLESTYRAMINE/ASPARTAME 4 G/PKT PACKET GT SCH (09:12)
[2022-11-17] MEDS: SIROLIMUS 1 MG GT SCH (10:03)
--- NOTE | 2022-11-17 11:40 | NUR ---
MONEY MARKET DEALER NOTES Pt BP checked and was elevated at 181/90 HR 80. PRN Hydralazine 10mg given via IV by ANNI Head. Will continue to monitor.
[2022-11-17 12:00] VITALS: BP 181/96
--- NOTE | 2022-11-17 12:26 | NUR ---
BATH SOLUTION MAKER NOTES BP rechecked and was 148/79.
[2022-11-17] MEDS: EPOETIN ALFA-EPBX 10,000 UNIT/ML VIAL SQ SCH (14:51)
[2022-11-17 16:00] VITALS: BP 149/99
[2022-11-17] MEDS: VANCOMYCIN HCL 125 MG/2.5 ML ORAL.SUSP PO SCH (18:37)
--- NOTE | 2022-11-17 18:43 | NUR ---
COMMUNITY CENTER COORDINATOR CLOSING NOTS All due meds and tx given as ordered. Pt tolerated everything well. All needs attended to. Pt is still on ventilator on prescribed settings. JT is patent and intact running prescribed settings. IV access on ARELIS midline patent and intact currently running IVF NS 75 cc/hr. HOB elevated to 30-45 degrees. Siderails up at all times. Call light within reach. WIll endorse to oncoming nurse.
--- NOTE | 2022-11-17 19:30 | NUR ---
SLEEVER OPENING NOTE RECEIVED PT IN BED. PT IS ON MECHANICAL VENT WITH ALL PRESCRIBED SETTINGS TOLERATING WELL WITH O2 SAT 99% NO SIGNS OF LABORED BREATHING OR DISTRESS. PT IS OBTUNDED AND PERIODICALLY OPENS EYES TO VOICE. PT TELE MONITORED AFIB/AFLUTTER WITH HR AT 73 BPM. TF INFUSING AT 30ML/HR. FC IS IN PLACE DRAINING URINE TO GRAVITY. IV ACCESS R UA ML INFUSING WITH NS @75ML/HR; L ARM HD ACCESS PER PROVIDERS NOTE NOT FUNCTIONAL AT THIS TIME. BED IS LOCKED IN LOWEST POSITION X2 BED RAILS UP AND ALL HOSPITAL SAFETY MEASURES ARE IN PLACE. WILL CONTINUE TO MONITOR THROUGHOUT THE SHIFT.
[2022-11-17 20:00] VITALS: BP 192/100
[2022-11-17] MEDS: TAMSULOSIN 0.4 MG CAP.SR.24H GT SCH (21:27)
[2022-11-17] MEDS: LATANOPROST EYE DROP 0.005% 2.5 ML BOTTLE EACHEYE SCH (21:27)
[2022-11-17] MEDS: INSULIN GLARGINE, 100 UNIT/ML CARTRIDGE SQ SCH (21:41)
--- NOTE | 2022-11-17 21:54 | NUR ---
RN NOTE BP NOTED AT 192/100 HR AT 72. PRN HYDRALAZINE GIVEN ORDERED, WILL CONT TO MONITOR.
[2022-11-18] VITALS: BP 154/100
[2022-11-18] MEDS: VANCOMYCIN HCL 125 MG/2.5 ML ORAL.SUSP PO SCH ×5 (00:21→23:51)
--- NOTE | 2022-11-18 00:25 | NUR ---
RN NOTE NOTED PT GT FEEDING WITH 200 CC OF GASTRIC RESIDUAL, ZOFRAN GIVEN PRN ORDER. WILL CONT TO MONITOR PT.
[2022-11-18] MEDS: IPRATROPIUM NEB FS 0.5 MG/2.5 ML AMPUL.NEB IH SCH ×4 (01:12→19:49)
[2022-11-18] MEDS: ALBUTEROL FS 2.5 MG/3 ML VIAL.NEB IH SCH ×4 (01:12→19:49)
[2022-11-18 04:00] VITALS: BP 183/92
[2022-11-18] MEDS: LEVOTHYROXINE SODIUM 125 MCG TABLET GT SCH (05:03)
[2022-11-18] MEDS: METOCLOPRAMIDE HCL 10 MG TABLET GT SCH ×3 (05:04→20:35)
[2022-11-18] MEDS: NEPRO 1,000 ML BOTTLE GT PRN (05:04)
[2022-11-18] MEDS: IV NS 0.9% 1,000 ML IV PRN ×2 (05:27→17:29)
[2022-11-18] MEDS: hydrALAZINE HCL IV 20 MG VIAL IV PRN (06:06)
--- NOTE | 2022-11-18 07:30 | NUR ---
CELL TESTER AM NOTE RECEIVED PT IN BED. OBTUNDED, WITH P8 TRACH TO MECHANICAL VENT, SETTING ORDERED, AC12 TV 450 FIO2 40 PEEP 5, WELL TOLERATED, NO DISTRESS, BREATHING EVEN AND UNLABORED. WITH O2 SAT 99%. A FIB/A FLUTTER WITH HR AT 85 BPM ON MONITOR. NO SIGNS OF DISCOMFORT, GRIMACING. IV ACCESS R UA ML INFUSING WITH NS @75ML/HR;SITE CLEAR. L ARM HD ACCESS PER PROVIDERS NOTE NOT FUNCTIONAL AT THIS TIME. HD HELD FOR NOW. GTF CHECKED FOR PLACEMENT, WITH 140 ML RESIDUAL, GTF NEPRO 30 ML/HR HELD FOR NOW. WILL RE CHECK RESIDUAL IN AN HOUR. FC IS IN PLACE DRAINING URINE TO GRAVITY. SEE NURSING FLOWSHEET FOR SKIN ISSUES. BED IS LOCKED IN LOWEST POSITION X2 BED RAILS UP AND ALL HOSPITAL SAFETY MEASURES ARE IN PLACE. HOB UP 30 DEG. CALL LIGHT WITHIN REACH. WILL CONTINUE TO MONITOR.
[2022-11-18 07:33] LABS: CALCIUM, SERUM 8.3 mg/dL (8.5-10.1); CARBON DIOXIDE 27 mmol/L (21-32); CHLORIDE 94 mmol/L (98-107); GLUCOSE 112 mg/dL (74-106); MAGNESIUM 2.5 mg/dL (1.8-2.4); POTASSIUM 3.6 mmol/L (3.5-5.1); SODIUM SERUM 132 mmol/L (136-145); UREA NITROGEN, BLOOD 79 mg/dL (7-18)
[2022-11-18 08:00] VITALS: BP 145/65
[2022-11-18] MEDS: BLOOD SUGAR DIAGNOSTIC 1 EACH STRIP VI SCH ×4 (08:08→21:25)
[2022-11-18 08:28] LABS: BASOPHILS % (AUTO) 0.3 % (0.0-2.0); EOSINOPHILS % (AUTO) 0.1 % (0.0-6.0); HEMATOCRIT 31 % (39-51); HEMOGLOBIN 9.1 g/dL (13.5-17.5); LYMPHOCYTES # (AUTO) 0.4 K/uL (0.8-4.8); LYMPHOCYTES % (AUTO) 4.6 % (20.0-44.0); MEAN CORPUSCULAR HGB CONC 29 g/dl (31.0-36.0); MEAN CORPUSCULAR VOLUME 96 fL (80-96); MONOCYTES # (AUTO) 1.1 K/uL (0.1-1.30); MONOCYTES % (AUTO) 12.1 % (2.0-12.0); NEUTROPHILS # (AUTO) 7.7 K/uL (1.8-8.9); NEUTROPHILS % (AUTO) 82.9 % (43.0-81.0); PLATELET COUNT (AUTO) 155 K/uL (150-450); RED BLOOD CELL COUNT(AUTO) 3.25 MIL/uL (4.5-6.0); WHITE BLOOD COUNT (AUTO) 9.2 K/uL (4.3-11.0)
[2022-11-18] MEDS: LINAGLIPTIN 5 MG TABLET PO SCH (08:32)
[2022-11-18] MEDS: DIGOXIN 0.125 MG TABLET GT SCH (08:37)
[2022-11-18] MEDS: SEVELAMER CARBONATE 800 MG POWD.PACK GT SCH ×3 (08:38→17:08)
[2022-11-18] MEDS: ACIDOPHILUS/BULGARICUS 1 EACH TAB.CHEW GT SCH ×2 (08:38→17:08)
[2022-11-18] MEDS: BACLOFEN (10 MG) 10 MG TABLET GT SCH ×2 (08:38→17:08)
[2022-11-18] MEDS: FERROUS SULFATE (325 MG) 325 MG/TAB TABLET GT SCH ×3 (08:38→17:08)
[2022-11-18] MEDS: LEVETIRACETAM (250 MG) 250 MG TABLET PO SCH ×2 (08:38→20:35)
[2022-11-18] MEDS: CHOLESTYRAMINE/ASPARTAME 4 G/PKT PACKET GT SCH (08:38)
[2022-11-18] MEDS: FAMOTIDINE (20 MG) 20 MG TABLET GT SCH (08:39)
[2022-11-18] MEDS: APIXABAN 2.5 MG TABLET GT SCH (08:43)
[2022-11-18] MEDS: SIROLIMUS 1 MG GT SCH (08:46)
--- NOTE | 2022-11-18 09:30 | NUR ---
RN NOTES DUE MEDS GIVEN
[2022-11-18 11:35] LABS: ABG BASE EXCESS -1.1 mmol/L; ABG OXYGEN SATURATION 90.9 % (92.0-98.5); ABG PCO2 67.2 mmHg (35.0-45.0); ABG PH 7.229 (7.350-7.450); ABG PO2 74.1 mmHg (75.0-100.0); AaDO2 133.8 mmHg; COHb 1.9 % (0.5-1.5); MetHb 0.2 % (0.0-1.5); SITE, ABG Right Radial; VENT MODE, BG AC 12 450 40% +5
[2022-11-18 12:00] VITALS: BP 129/70
[2022-11-18] MEDS: CALCIUM ACETATE 667 MG CAP/TAB PEG SCH ×2 (12:29→17:08)
[2022-11-18] MEDS ORDERED: VANC125C11 PO (13:54)
--- NOTE | 2022-11-18 14:05 | NUR ---
RN NOTES DR. BELLO WITH ORDER TO DC PATIENT TODAY. DR. Lamberto MCCOY ORDERED CT GUIDED FINE NEEDLE BIOPSY OF KIDNEY [HISTORY OF KIDNEY TRANSPLANT WITH ALLOGRAFT FAILURE]. SCHEDULED ON 11/20/2022. ELIQUIS HELD STARTING TODAY. DR. BELLO NOTIFIED.
[2022-11-18 16:00] VITALS: BP 155/71
[2022-11-18 18:08] LABS: BAND % (MANUAL) 4 % (0.0-5.0); LYMPHOCYTES % (MANUAL) 3 % (16-48); MONOCYTES % (MANUAL) 4 % (0-11.0); NEUTROPHILS % (MANUAL) 89 (42-76)
--- NOTE | 2022-11-18 18:37 | NUR ---
FIRE INFORMATION OFFICER CLOSING NOTE PT IN BED. RESTING, OBTUNDED, WITH P8 TRACH TO MECHANICAL VENT, SETTING ORDERED, AC 12 TV 450 FIO2 40 PEEP 5, WELL TOLERATED, NO DISTRESS, BREATHING EVEN AND UNLABORED. WITH O2 SAT >95%. A FIB/A FLUTTER WITH HR AT 60 BPM ON MONITOR. NO SIGNS OF DISCOMFORT, GRIMACING. IV ACCESS R UA ML INFUSING WITH NS @75ML/HR;SITE CLEAR. L ARM HD ACCESS PER PROVIDERS NOTE NOT FUNCTIONAL AT THIS TIME. HD HELD FOR NOW. GTF CHECKED FOR PLACEMENT, WITH 40 ML RESIDUAL, GTF NEPRO 30 ML/HR ONGOING. FC IS IN PLACE DRAINING URINE TO GRAVITY, 350 ML OUTPUT. BED IS LOCKED IN LOWEST POSITION X2 BED RAILS UP AND ALL HOSPITAL SAFETY MEASURES ARE IN PLACE. HOB UP 30 DEG. CALL LIGHT WITHIN REACH. PM CARE AND PRESCRIBED WOUND CARE DONE EARLIER. TURNED AND REPOSITIONED Q 2 HOURS. ALL NEEDS MET FOR NOW. WILL ENDORSE TO NEXT SHIFT FOR LOU Addendum: 11/18/22 at 1842 by MALENA DIAZ RN ADDENDUM DISCHARGE HELD
--- NOTE | 2022-11-18 19:15 | NUR ---
RN NOTE RECEIVED PT FOR CONTINUITY OF CARE. PATIENT A/OX0 IN NO S/SX OF ACUTE DISTRESS AT THIS TIME; CURRENTLY ON MECHANICAL VENT; SETTING PRESCRIBED, WITH 02 SAT >95% AT THIS TIME. WITH IV ACCESS PATENT, INTACT AND FLUSHING WELL. GTUBE FEEDING RUNNING PRESCRIBED. WILL ENSURE SAFETY MEASURES WITHIN THE SHIFT. PATIENT BED ALARM IS ON. HEAD OF BED ELEVATED. BED IS LOCKED, IN LOWEST POSITION AND SIDE RAILS UP. CALL LIGHT WITHIN REACH OF THE PATIENT. WILL CONTINUE TO MONITOR AND REASSESS FOR ANY CHANGES AND WILL CARRY OUT ANY ONGOING AND ACTIVE MD ORDER.
[2022-11-18 20:00] VITALS: BP 134/76
[2022-11-18] MEDS: LATANOPROST EYE DROP 0.005% 2.5 ML BOTTLE EACHEYE SCH (20:37)
[2022-11-18] MEDS: TAMSULOSIN 0.4 MG CAP.SR.24H GT SCH (21:02)
[2022-11-18] MEDS: INSULIN GLARGINE, 100 UNIT/ML CARTRIDGE SQ SCH (21:25)
[2022-11-19] VITALS: BP 128/62
--- NOTE | 2022-11-19 00:19 | NUR ---
RN NOTE RECTAL TEMP 94.6, INITIATED USE OF SAMANTHA HUGGER. ONCFARHAN ROSALES INFORMED ( LENKA PORTILLO) BROWN STOCK WASHER MADE AWARE.
[2022-11-19] MEDS: IPRATROPIUM NEB FS 0.5 MG/2.5 ML AMPUL.NEB IH SCH ×4 (01:10→20:23)
[2022-11-19] MEDS: ALBUTEROL FS 2.5 MG/3 ML VIAL.NEB IH SCH ×4 (01:10→20:23)
[2022-11-19 04:00] VITALS: BP 131/59
[2022-11-19] MEDS: METOCLOPRAMIDE HCL 10 MG TABLET GT SCH ×3 (05:05→21:20)
[2022-11-19] MEDS: VANCOMYCIN HCL 125 MG/2.5 ML ORAL.SUSP PO SCH (05:05)
[2022-11-19] MEDS: LEVOTHYROXINE SODIUM 125 MCG TABLET GT SCH (05:05)
[2022-11-19] MEDS: IV NS 0.9% 1,000 ML IV PRN (05:12)
--- NOTE | 2022-11-19 06:50 | NUR ---
RN CLOSING NOTE: PATIENT REMAINS IN ROOM IN NO SIGNS OF RESPIRATORY DISTRESS, PATIENT STILL ON MECH VENT; SETTINGS PRESCRIBED;TOLERATING WELL SATURATING @ >93% SP02. SAFETY MEASURES IMPLEMENTED, BED IN LOWEST POSITION, LOCKED, SIDE RAILS UP, CALL LIGHT WITHIN REACH. ALL NEEDS AND ORDERS ADDRESSED DURING THE SHIFT. IV ACCESS MAINTAINED INTACT, SECURED AND FLUSHING WELL. ALL DUE MEDS GIVEN ORDERED & SCHEDULED ; PATIENT TOLERATED WELL. PATIENT KEPT CLEAN AND COMFORTABLE WITHIN THE SHIFT. PATIENT ENDORSED TO INCOMING SHIFT RN WITH STABLE VITAL SIGN AND FOR CONTINUITY OF CARE.
--- NOTE | 2022-11-19 07:15 | NUR ---
SPLIT LEATHER DEPARTMENT SUPERVISOR OPENING NOTE RECEIVED PT IN BED, ON BACK, EYES CLOSED, UPPER EXTREMITIES CONTRACTED. WITH P8 TRACH TO MECHANICAL VENT, NO DISTRESS, BREATHING EVEN AND UNLABORED. WITH O2 SAT 99%. NO SIGNS OF DISCOMFORT, GRIMACING. IV ACCESS R UA ML INFUSING WITH NS @75ML/HR;SITE CLEAR. GTUBE IN PLACE, FLUSHES WELL, NO RESIDUAL, NEPRO RUNNING AT 30ML/HR. FC IS IN PLACE DRAINING URINE TO GRAVITY. BED IS LOCKED IN LOWEST POSITION X2 BED RAILS UP AND ALL HOSPITAL SAFETY MEASURES ARE IN PLACE. HOB UP 30 DEG. CALL LIGHT WITHIN REACH. WILL CONTINUE TO MONITOR.
[2022-11-19] MEDS: BLOOD SUGAR DIAGNOSTIC 1 EACH STRIP VI SCH ×4 (07:37→21:32)
[2022-11-19 08:00] VITALS: BP 148/62
[2022-11-19 08:04] LABS: EOSINOPHILS % (AUTO) 0.2 % (0.0-6.0); HEMATOCRIT 29 % (39-51); HEMOGLOBIN 8.4 g/dL (13.5-17.5); LYMPHOCYTES # (AUTO) 0.1 K/uL (0.8-4.8); LYMPHOCYTES % (AUTO) 1.6 % (20.0-44.0); MEAN CORPUSCULAR HGB CONC 29 g/dl (31.0-36.0); MEAN CORPUSCULAR VOLUME 96 fL (80-96); MONOCYTES # (AUTO) 0.4 K/uL (0.1-1.30); MONOCYTES % (AUTO) 4.4 % (2.0-12.0); NEUTROPHILS # (AUTO) 7.6 K/uL (1.8-8.9); NEUTROPHILS % (AUTO) 93.8 % (43.0-81.0); PLATELET COUNT (AUTO) 121 K/uL (150-450); RED BLOOD CELL COUNT(AUTO) 2.99 MIL/uL (4.5-6.0); WHITE BLOOD COUNT (AUTO) 8.1 K/uL (4.3-11.0)
[2022-11-19 08:11] LABS: CARBON DIOXIDE 27 mmol/L (21-32); CHLORIDE 96 mmol/L (98-107); CREATININE 3.3 mg/dL (0.6-1.3); GLUCOSE 89 mg/dL (74-106); POTASSIUM 3.7 mmol/L (3.5-5.1); SODIUM SERUM 132 mmol/L (136-145)
[2022-11-19 08:14] LABS: UREA NITROGEN, BLOOD 86 mg/dL (7-18)
[2022-11-19] MEDS: FERROUS SULFATE (325 MG) 325 MG/TAB TABLET GT SCH ×3 (08:54→16:54)
[2022-11-19] MEDS: FAMOTIDINE (20 MG) 20 MG TABLET GT SCH (08:54)
[2022-11-19] MEDS: DIGOXIN 0.125 MG TABLET GT SCH (08:56)
[2022-11-19] MEDS: LEVETIRACETAM (250 MG) 250 MG TABLET PO SCH ×2 (08:57→21:20)
[2022-11-19] MEDS: CALCIUM ACETATE 667 MG CAP/TAB PEG SCH ×3 (08:57→16:54)
[2022-11-19] MEDS: SEVELAMER CARBONATE 800 MG POWD.PACK GT SCH ×3 (09:04→16:54)
[2022-11-19] MEDS: LINAGLIPTIN 5 MG TABLET PO SCH (09:04)
[2022-11-19] MEDS: ACIDOPHILUS/BULGARICUS 1 EACH TAB.CHEW GT SCH ×2 (09:04→16:54)
[2022-11-19] MEDS: CHOLESTYRAMINE/ASPARTAME 4 G/PKT PACKET GT SCH (09:09)
[2022-11-19] MEDS: BACLOFEN (10 MG) 10 MG TABLET GT SCH ×2 (09:09→16:54)
[2022-11-19] MEDS: SIROLIMUS 1 MG GT SCH (09:12)
--- NOTE | 2022-11-19 09:15 | NUR ---
FiO2 TITRATED FROM %40 TO %50 DUE TO PT DESAT ON %40.
[2022-11-19 12:00] VITALS: BP 131/59
[2022-11-19 14:08] LABS: ABG BASE EXCESS 0.3 mmol/L; ABG PCO2 54.9 mmHg (35.0-45.0); ABG PO2 87.2 mmHg (75.0-100.0); COHb 0.9 % (0.5-1.5); MetHb 0.2 % (0.0-1.5); O2Hb 94.2 % (94.0-97.0); PEEP,BG 5 cm H2O; VT, ABG 475 mL
[2022-11-19] MEDS: EPOETIN ALFA-EPBX 10,000 UNIT/ML VIAL SQ SCH (14:37)
--- NOTE | 2022-11-19 14:50 | NUR ---
ORDER FOR C-DIFF STOOL COLLECTION FROM 11/17/2022 NOT DONE, PT HAD NO BOWEL MOVEMENT. WILL CONTINUE TO MONITOR.
[2022-11-19 16:00] VITALS: BP 164/69
--- NOTE | 2022-11-19 16:00 | NUR ---
PT UNDERWENT CT WITHOUT CONTRAST, SAFELY TRANSPORTED TO THE CT DEPARTMENT ACCOMPANIED BY RN AND RT. BROUGHT BACK WITHOUT INCIDENTS AND CONNECTED TO THE VENT PROMPTLY.
--- NOTE | 2022-11-19 16:18 | NUR ---
Pt transported at 16:[address] with RN and commercial tire service technician, ACLS protocol followed. No SOB or respiratory distress noted during or after transport. Pt connected to ventilator after CT with alarms on and audible and without incident.
--- NOTE | 2022-11-19 18:35 | NUR ---
RN CLOSING NOTE PATIENT REMAINS IN ROOM IN NO SIGNS OF RESPIRATORY DISTRESS, ON MECH VENT; SETTINGS BEEN ADJUSTED BY RT FROM 40 O2 TO 50 O2, TOLERATING WELL, SATURATING @ >94%. G TUBE FLUSHES WELL, NEPRO AT 30 ML IN HR CONTINUOUSLY. SAFETY MEASURES IMPLEMENTED, BED IN LOWEST POSITION, LOCKED, SIDE RAILS UP, CALL LIGHT WITHIN REACH. ALL NEEDS AND ORDERS ADDRESSED DURING THE SHIFT. IV ACCESS MAINTAINED INTACT, SECURED AND FLUSHING WELL. ALL DUE MEDS GIVEN ORDERED & SCHEDULED, TOLERATED WELL. PATIENT KEPT CLEAN AND COMFORTABLE WITHIN THE SHIFT. PATIENT ENDORSED TO INCOMING SHIFT RN WITH STABLE VITAL SIGN AND FOR CONTINUITY OF CARE.
--- NOTE | 2022-11-19 19:20 | NUR ---
RN NOTE RECEIVED PT FOR CONTINUITY OF CARE. PATIENT A/OX0 IN NO S/SX OF ACUTE DISTRESS AT THIS TIME; CURRENTLY ON MECHANICAL VENT; SETTING PRESCRIBED, WITH 02 SAT >95% AT THIS TIME. WITH IV ACCESS PATENT, INTACT AND FLUSHING WELL. GTUBE FEEDING RUNNING PRESCRIBED. NOTED PT WITH GENERALIZED SWELLING. KNOX CATH SECURED AND INTACT WITH NO URINE OUTPUT AT THIS TIME. WILL ENSURE SAFETY MEASURES WITHIN THE SHIFT. PATIENT BED ALARM IS ON. HEAD OF BED ELEVATED. BED IS LOCKED, IN LOWEST POSITION AND SIDE RAILS UP. CALL LIGHT WITHIN REACH OF THE PATIENT. WILL CONTINUE TO MONITOR AND REASSESS FOR ANY CHANGES AND WILL CARRY OUT ANY ONGOING AND ACTIVE MD ORDER.
--- NOTE | 2022-11-19 19:35 | NUR ---
RN NOTE STATUS UPDATE GIVEN TO ONCFARHAN ROSALES (LINDSEY,SURVEILLANCE SUPERVISOR) ADVISED CURRENT LABS AND THE NOTED GEN SWELLING OF PT, ALSO ADVISED PT IS SCHEDULED FOR A FINE NEEDLE BIOPSY ORDERED BY DR. MCCOY. MD ACKNOWLEDGED. ORDER GIVEN TO DC FLUIDS AT THIS TIME. SPECIAL EDUCATION PARA PROFESSIONAL MADE AWARE.
[2022-11-19 20:00] VITALS: BP 92/50
[2022-11-19] MEDS: TAMSULOSIN 0.4 MG CAP.SR.24H GT SCH (21:20)
[2022-11-19] MEDS: LATANOPROST EYE DROP 0.005% 2.5 ML BOTTLE EACHEYE SCH (21:20)
[2022-11-19] MEDS: INSULIN GLARGINE, 100 UNIT/ML CARTRIDGE SQ SCH (21:32)
[2022-11-19] MEDS: *INSULIN REGULAR(HUMULIN R)HUM 100 UNIT/ML VIAL SQ PRN (21:33)
--- NOTE | 2022-11-19 22:05 | NUR ---
RN NOTE CALLED PT'S SON (NANETTE) AND PROVIDED STATUS UPDATE, ALSO SECURED CONSENT FOR THE SCHEDULE PROCEDURE CT NEEDLE BIOPSY ORDERED BY DR. MCCOY. CRIMINAL JUSTICE PROGRAM DIRECTOR MADE AWARE.
[2022-11-20] VITALS (70 sets, daily range): BP systolic 64–184; BP diastolic 23–118
--- NOTE | 2022-11-20 | NUR ---
RT NOTE DUE TO LOW BP PEEP DECREASED TO +0 PER MD ORDERS Addendum: 11/20/22 at 0035 by RENATE CHAVEZ RT Amended: Links added.
--- NOTE | 2022-11-20 00:03 | NUR ---
RN NOTE PT'S SBP <90, 64/28 AND 62/28. BUYERS' AGENT MADE AWARE. NOTIFIED MAHENDRA ROSALES ( LINDSEY,FAMILY SERVICE CASEWORKER) ORDER SECURED FOR SOLU CORTEF AND TRANSFER TO ICU DUE TO UNSTABLE CONDITION.
[2022-11-20] MEDS: HYDROCORTISONE SOD SUCCINATE 100 MG/2 ML VIAL IV SCH ×4 (00:12→21:21)
[2022-11-20] MEDS ORDERED: NOREPINEPHRINE 4 MG/4 ML AMPUL IV ONE (00:14)
--- NOTE | 2022-11-20 00:20 | NUR ---
RN NOTE PT TRANSFERRED TO ICU ROOM#259, BEDSIDE REPORT GIVEN TO ANNI WIN. ALL PERTINENT PT INFO GIVEM LIGHT ADJUSTER WELL AWARE,
[2022-11-20] MEDS ORDERED: NOREPINEPHRINE 32 MG in IV NS 0.9% 218 ML IV PRN (00:30)
--- NOTE | 2022-11-20 00:40 | NUR ---
RN NOTE CALLED PT'S SON (NANETTE-[id number]) PROVIDED STATUS UPDATE, PT SENT TO ICU (RM259) DUE TO UNSTABLE BP. FAMILY ACKNOWLEDGED.
[2022-11-20] MEDS: IPRATROPIUM NEB FS 0.5 MG/2.5 ML AMPUL.NEB IH SCH ×4 (01:10→19:51)
[2022-11-20] MEDS: ALBUTEROL FS 2.5 MG/3 ML VIAL.NEB IH SCH ×4 (01:10→19:51)
[2022-11-20] MEDS: NEPRO 1,000 ML BOTTLE GT PRN (01:23)
[2022-11-20] MEDS: METOCLOPRAMIDE HCL 10 MG TABLET GT SCH ×3 (05:04→21:21)
[2022-11-20] MEDS: LEVOTHYROXINE SODIUM 125 MCG TABLET GT SCH (05:04)
[2022-11-20 07:30] LABS: HEMATOCRIT 26 % (39-51); HEMOGLOBIN 7.7 g/dL (13.5-17.5); LYMPHOCYTES # (AUTO) 0.1 K/uL (0.8-4.8); LYMPHOCYTES % (AUTO) 1.3 % (20.0-44.0); MEAN CORPUSCULAR HGB CONC 30 g/dl (31.0-36.0); MEAN CORPUSCULAR VOLUME 96 fL (80-96); MONOCYTES # (AUTO) 0.1 K/uL (0.1-1.30); NEUTROPHILS # (AUTO) 6.1 K/uL (1.8-8.9); NEUTROPHILS % (AUTO) 97.7 % (43.0-81.0); PLATELET COUNT (AUTO) 128 K/uL (150-450); RED BLOOD CELL COUNT(AUTO) 2.68 MIL/uL (4.5-6.0); WHITE BLOOD COUNT (AUTO) 6.3 K/uL (4.3-11.0)
[2022-11-20 07:44] LABS: ALBUMIN 1.7 g/dL (3.4-5.0); BILIRUBIN,DIRECT 0.3 mg/dL (0.0-0.2); BILIRUBIN,TOTAL 0.5 mg/dL (0.2-1.0); CALCIUM, SERUM 7.8 mg/dL (8.5-10.1); CARBON DIOXIDE 28 mmol/L (21-32); CHLORIDE 95 mmol/L (98-107); CREATININE 3.8 mg/dL (0.6-1.3); GLUCOSE 137 mg/dL (74-106); MAGNESIUM 2.6 mg/dL (1.8-2.4); PHOSPHORUS 7.8 mg/dL (2.5-4.9); SODIUM SERUM 133 mmol/L (136-145); TOTAL PROTEIN, SERUM 6.8 g/dL (6.4-8.2)
[2022-11-20 07:45] LABS: UREA NITROGEN, BLOOD 93 mg/dL (7-18)
--- NOTE | 2022-11-20 08:00 | NUR ---
RN NOTES SEEN PATIENT TRACHEA/VENT SETTING TOLERATING WELL, FIO2-50%, PEEP-0, T-97.8F. SUCTION MOUTH CARE DONE, PATIENT HAS POOR URINE OUTPUT, HAS GENERALIZED EDEMA. RESIDUAL WAS 60ML, KEEP HOB ELEVATED, DUE MEDICATION ADMINISTERED CRUSHED, BP RUNNING LOW 68/23, P-47 TO 50 A-FIB FLATTER, RUNNING 30ML/HR NEPRO . IV ACCESS ON ARELIS MISLINE INTACT HAS BLOOD RETURN. ASSIST TURN AND REPOSTION Q 2 HR. WILL FOLLOW UP.
[2022-11-20] MEDS: BLOOD SUGAR DIAGNOSTIC 1 EACH STRIP VI SCH ×4 (08:04→21:27)
--- NOTE | 2022-11-20 09:00 | NUR ---
RN NOTES SEEN PATIENT VIA Dr MCCOY AND NEW ORDER IS US GUIDED BIOPSY RIGHT KIDNEY ALLOGRAFT. NOTIFIED RADIOLOGIST, PER RADIOLOGIST PROCEDURE WILL HAPPEN TUESDAY. NOTIFIED Dr MCCOY.
[2022-11-20] MEDS: CALCIUM ACETATE 667 MG CAP/TAB PEG SCH (09:33)
[2022-11-20] MEDS: SEVELAMER CARBONATE 800 MG POWD.PACK GT SCH ×3 (09:34→17:41)
[2022-11-20] MEDS: CHOLESTYRAMINE/ASPARTAME 4 G/PKT PACKET GT SCH (09:34)
[2022-11-20] MEDS: FERROUS SULFATE (325 MG) 325 MG/TAB TABLET GT SCH ×3 (09:35→17:43)
[2022-11-20] MEDS: BACLOFEN (10 MG) 10 MG TABLET GT SCH ×2 (09:35→17:43)
[2022-11-20] MEDS: FAMOTIDINE (20 MG) 20 MG TABLET GT SCH (09:35)
[2022-11-20] MEDS: LEVETIRACETAM (250 MG) 250 MG TABLET PO SCH ×2 (09:35→21:21)
[2022-11-20] MEDS: LINAGLIPTIN 5 MG TABLET PO SCH (09:35)
[2022-11-20] MEDS: ACIDOPHILUS/BULGARICUS 1 EACH TAB.CHEW GT SCH ×2 (09:35→17:43)
--- NOTE | 2022-11-20 10:00 | NUR ---
rn notes get verbal order from Dr Deanne MARTINEZ, order taken and carried out, RT notified.
--- NOTE | 2022-11-20 10:10 | NUR ---
rn notes get ABG result, no changed for trach setting per Dr Alicea.
[2022-11-20] MEDS: INSULIN REGULAR, HUMAN 100 UNIT/ML 3 ML VIAL SQ PRN ×3 (10:12→17:53)
[2022-11-20 11:16] LABS: ABG OXYGEN SATURATION 89.9 % (92.0-98.5); ABG PH 7.294 (7.350-7.450); ABG PO2 68.2 mmHg (75.0-100.0); AaDO2 224.2 mmHg; COHb 1.4 % (0.5-1.5); MetHb 0.3 % (0.0-1.5); O2Hb 88.4 % (94.0-97.0); SITE, ABG Right Radial; VENT MODE, BG AC 16 475 50% +0
[2022-11-20] MEDS: SIROLIMUS 1 MG GT SCH (11:17)
--- NOTE | 2022-11-20 12:00 | NUR ---
rn notes bs-156 mg/dl, due medication administered, patient has 40ml of urine output.
[2022-11-20] MEDS: CALCIUM ACETATE 667 MG CAP/TAB GT SCH ×2 (12:47→17:43)
--- NOTE | 2022-11-20 18:30 | NUR ---
RN NOTES PM CARE DONE, SUCTION, MOUTH CARE DONE. PATIENT HAS POOR URINE OUTPUT 50ML, COLLECTED UA/UC FROM KNOX PORT, RUNNING NEPRO @30ML TOLERATING WELL. ASSIST TURN AND REPOSTION Q 2 HR. ENDORSED ONCOMING NURSE LOU.
[2022-11-20 20:32] LABS: BILIRUBIN,URINE 1+ (NEGATIVE); COLOR,URINE YELLOW (YELLOW); LEUKOCYTE ESTERASE ,URINE 2+ (NEGATIVE); NITRITE, URINE NEGATIVE (NEGATIVE); PH,URINE 5.5 (5.0-8.0); PROTEIN,URINE 3+ mg/dl (NEGATIVE); UGLUCOSE NEGATIVE (NEGATIVE); UROBILINOGEN,URINE 0.2 EU/dL (0.2)
[2022-11-20 20:37] LABS: BACTERIA,URINE 1+ /HPF (None Seen); RBC,URINE 51-80 /HPF (0-2); SQUAMOUS EPITHELIAL CELL,UR 0-2 /HPF (None Seen); WBC,URINE 21-50 /HPF (0-3); YEAST,URINE Moderate /HPF (None Seen)
[2022-11-20] MEDS: TAMSULOSIN 0.4 MG CAP.SR.24H GT SCH (21:24)
[2022-11-20] MEDS: INSULIN GLARGINE, 100 UNIT/ML CARTRIDGE SQ SCH (21:27)
[2022-11-20] MEDS: LATANOPROST EYE DROP 0.005% 2.5 ML BOTTLE EACHEYE SCH (21:45)
[2022-11-20] MEDS: *INSULIN REGULAR(HUMULIN R)HUM 100 UNIT/ML VIAL SQ PRN (23:19)
[2022-11-21] VITALS (45 sets, daily range): BP systolic 90–194; BP diastolic 30–116
[2022-11-21] MEDS: NEPRO 1,000 ML BOTTLE GT PRN (00:58)
[2022-11-21] MEDS: ALBUTEROL FS 2.5 MG/3 ML VIAL.NEB IH SCH ×4 (02:18→19:53)
[2022-11-21] MEDS: IPRATROPIUM NEB FS 0.5 MG/2.5 ML AMPUL.NEB IH SCH ×4 (02:18→19:53)
[2022-11-21] MEDS: LEVOTHYROXINE SODIUM 125 MCG TABLET GT SCH (05:25)
[2022-11-21] MEDS: METOCLOPRAMIDE HCL 10 MG TABLET GT SCH ×3 (05:25→21:53)
[2022-11-21] MEDS: HYDROCORTISONE SOD SUCCINATE 100 MG/2 ML VIAL IV SCH ×3 (05:25→16:27)
--- NOTE | 2022-11-21 08:00 | NUR ---
RN NOTES GET ORDER VIA Dr WILLIAM MARTINEZ STAT, ORDER TAKEN AND CARRIED OUT. GET 180 ML OF RESIDUAL HELD FEEDING AT THIS TIME, DUE MEDICATION ADMINISTERED, ASSIST TURN AND REPOSTION Q 2 HR, NOTED FRESH BLOOD SUCTIONING FROM TRACHEA, AND MOUTH. KEEP HOB ELEVATED. WILL FOLLOW UP.
[2022-11-21] MEDS: BLOOD SUGAR DIAGNOSTIC 1 EACH STRIP VI SCH ×4 (08:25→21:53)
[2022-11-21] MEDS: SIROLIMUS 1 MG GT SCH (08:43)
[2022-11-21] MEDS: CHOLESTYRAMINE/ASPARTAME 4 G/PKT PACKET GT SCH (08:43)
[2022-11-21] MEDS: SEVELAMER CARBONATE 800 MG POWD.PACK GT SCH ×3 (08:44→16:27)
[2022-11-21] MEDS: ACIDOPHILUS/BULGARICUS 1 EACH TAB.CHEW GT SCH ×2 (08:44→16:27)
[2022-11-21] MEDS: FAMOTIDINE (20 MG) 20 MG TABLET GT SCH (08:44)
[2022-11-21] MEDS: LEVETIRACETAM (250 MG) 250 MG TABLET PO SCH ×2 (08:44→21:53)
[2022-11-21] MEDS: LINAGLIPTIN 5 MG TABLET PO SCH (08:44)
[2022-11-21] MEDS: FERROUS SULFATE (325 MG) 325 MG/TAB TABLET GT SCH ×3 (08:44→16:27)
[2022-11-21] MEDS: BACLOFEN (10 MG) 10 MG TABLET GT SCH ×2 (08:44→16:27)
[2022-11-21] MEDS: CALCIUM ACETATE 667 MG CAP/TAB GT SCH ×3 (08:44→16:27)
[2022-11-21 08:51] LABS: ABG BASE EXCESS -0.3 mmol/L; ABG OXYGEN SATURATION 91.8 % (92.0-98.5); ABG PCO2 52.5 mmHg (35.0-45.0); ABG PH 7.318 (7.350-7.450); ABG PO2 71.4 mmHg (75.0-100.0); AaDO2 153.4 mmHg; COHb 1.4 % (0.5-1.5); MetHb 0.2 % (0.0-1.5); O2Hb 90.3 % (94.0-97.0); SITE, ABG Right Radial
[2022-11-21] MEDS: CEFEPIME 2 GM in IV D5W 100 ML IV SCH (09:08)
[2022-11-21] MEDS: IV NS 0.9% 250 ML IV PRN (09:16)
--- NOTE | 2022-11-21 10:15 | NUR ---
rn notes patient abdomen distended, get order via Dr Miller stat KUB order taken and carried out.
[2022-11-21] MEDS: hydrALAZINE HCL IV 20 MG VIAL IV PRN ×2 (12:59→18:27)
--- NOTE | 2022-11-21 12:59 | NUR ---
rn notes administered hydralazine 10mg/ml iv push for bp 194/79, p-71 also administered due medication. son next to the bed.
--- NOTE | 2022-11-21 14:25 | NUR ---
RN NOTES BP -153/66, P-77, MEDICATION WERE ADMINISTERED EFFECTIVE.
--- NOTE | 2022-11-21 17:52 | NUR ---
rn notes Radiology result: There is paucity of bowel gas in the abdomen which is nonspecific but may be seen with obstruction. There is stool in the right hemicolon. Heavily calcified aorta. notified hospitalist Dr Kam, no orders at this time .
--- NOTE | 2022-11-21 18:04 | NUR ---
RN NOTES BS-112 MG/DL, DUE MEDICATION ADMINISTERED, NO ACUTE RESPIRATORY DISTRESS, GET ORDER FROM HOSPITALIST MILK OF MAGNESIA 15G Q6HR PRN , ORDER TAKEN AND CARRIED OUT. ASSIST TURN AND REPOSITION. RUNNING NEPRO 30ML/HR. FAMILY NEXT TO THE BED.
[2022-11-21] MEDS: MAGNESIUM HYDROXIDE 30 ML UDC GT PRN (18:27)
--- NOTE | 2022-11-21 18:28 | NUR ---
rn notes administered hydralazine 10mg/ml iv push for bp 194/85, and mom 15mg prn per md orders. will follow up.
[2022-11-21] MEDS: TAMSULOSIN 0.4 MG CAP.SR.24H GT SCH (21:53)
[2022-11-21] MEDS: LATANOPROST EYE DROP 0.005% 2.5 ML BOTTLE EACHEYE SCH (21:53)
[2022-11-21] MEDS: INSULIN GLARGINE, 100 UNIT/ML CARTRIDGE SQ SCH (21:55)
[2022-11-22] VITALS (45 sets, daily range): BP systolic 54–159; BP diastolic 31–97
--- NOTE | 2022-11-22 | NUR ---
METAL CNC OPERATOR. RECEIVED THE PT REST IN BED, TRACH TO VENT CONNECTED, TRACH #8PORTEX,AC 16,TV 475,FIO2 50%, SAT 98%. NO ACUTE DISTRESS NOTED. LINE TESTER SHOWING NSR, IV RT UPPER ARM MID LINE TKO RUNNING, GT FEEDING TOLERATED WELL. NPO ASHLEY 0000. TODAY GOING TO RENAL BIOPSYFC PATENT. VERY MINIMAL URINE, HOB ELEVATED, TURN AND REPOSITION Q2H. WILL CONTINUE TO MONITOR VITALS
[2022-11-22] MEDS: ALBUTEROL FS 2.5 MG/3 ML VIAL.NEB IH SCH ×4 (01:35→19:38)
[2022-11-22] MEDS: IPRATROPIUM NEB FS 0.5 MG/2.5 ML AMPUL.NEB IH SCH ×4 (01:35→19:38)
--- NOTE | 2022-11-22 02:31 | NUR ---
pt is npo from 0000.
--- NOTE | 2022-11-22 04:00 | NUR ---
STEEL DIE ENGRAVER. AM CARE GIVEN. REMAINING SAME VENT SETTINGS ON. NO ACUTE DISTRESS NOTED. SUPERVISORY CLERK SHOWING NSR. IV RT UPPER ARM MID LINE TKO RUNNING. HOB ELEVATED. NPO FROM 0000GT INTACT. FC PATENT. VERY MINIMAL OUT PUT. A FEBRILE TURN AND REPOSITION Q2H. WILL CONTINUE TO MONITOR VITALS,
[2022-11-22 04:46] LABS: HEMATOCRIT 28 % (39-51); HEMOGLOBIN 8.4 g/dL (13.5-17.5); LYMPHOCYTES # (AUTO) 0.1 K/uL (0.8-4.8); LYMPHOCYTES % (AUTO) 0.7 % (20.0-44.0); MEAN CORPUSCULAR HGB CONC 30 g/dl (31.0-36.0); MEAN CORPUSCULAR VOLUME 94 fL (80-96); MONOCYTES # (AUTO) 0.3 K/uL (0.1-1.30); MONOCYTES % (AUTO) 2.3 % (2.0-12.0); NEUTROPHILS # (AUTO) 11.6 K/uL (1.8-8.9); PLATELET COUNT (AUTO) 153 K/uL (150-450); WHITE BLOOD COUNT (AUTO) 11.9 K/uL (4.3-11.0)
--- NOTE | 2022-11-22 04:46 | NUR ---
INVESTIGATION LIEUTENANT. BLEEDING FROM ORAL , PT DESATURATED , FIO2 60% NOW. WILL CONTINUE TO MONITOR .NOTIFIED HEAVY MOBILE EQUIPMENT REPAIRER LINDSEY
[2022-11-22 04:49] LABS: CALCIUM, SERUM 8.8 mg/dL (8.5-10.1); CARBON DIOXIDE 28 mmol/L (21-32); CHLORIDE 92 mmol/L (98-107); CREATININE 4.3 mg/dL (0.6-1.3); GLUCOSE 132 mg/dL (74-106); MAGNESIUM 2.9 mg/dL (1.8-2.4); PHOSPHORUS 7.4 mg/dL (2.5-4.9); SODIUM SERUM 128 mmol/L (136-145)
[2022-11-22 04:50] LABS: UREA NITROGEN, BLOOD 110 mg/dL (7-18)
[2022-11-22] MEDS: METOCLOPRAMIDE HCL 10 MG TABLET GT SCH ×3 (05:00→21:05)
[2022-11-22] MEDS: LEVOTHYROXINE SODIUM 125 MCG TABLET GT SCH (06:00)
--- NOTE | 2022-11-22 06:40 | NUR ---
agricultural equipment test engineer. esteban saw handle assembler at bed side. oral care given. stopped the bleeding. h#h stable, will continue to monitor.
--- NOTE | 2022-11-22 08:00 | NUR ---
rn notes received patient npo, scheduled us guided right kidney biopsy, bs-118 mg/dl, no residual, held due medication am, poor urine output, suction, mouth care done, assist turn nand reposition q 2 hr. will follow up.
[2022-11-22] MEDS: BLOOD SUGAR DIAGNOSTIC 1 EACH STRIP VI SCH ×4 (08:22→21:19)
[2022-11-22] MEDS: BACLOFEN (10 MG) 10 MG TABLET GT SCH ×2 (08:28→17:09)
[2022-11-22] MEDS: SIROLIMUS 1 MG GT SCH (08:28)
[2022-11-22] MEDS: CALCIUM ACETATE 667 MG CAP/TAB GT SCH ×3 (08:28→17:10)
[2022-11-22] MEDS: FAMOTIDINE (20 MG) 20 MG TABLET GT SCH (08:28)
[2022-11-22] MEDS: ACIDOPHILUS/BULGARICUS 1 EACH TAB.CHEW GT SCH ×2 (08:28→17:10)
[2022-11-22] MEDS: FERROUS SULFATE (325 MG) 325 MG/TAB TABLET GT SCH ×3 (08:28→17:09)
[2022-11-22] MEDS: LINAGLIPTIN 5 MG TABLET PO SCH (08:29)
[2022-11-22] MEDS: LEVETIRACETAM (250 MG) 250 MG TABLET PO SCH ×2 (08:29→21:05)
[2022-11-22] MEDS: CHOLESTYRAMINE/ASPARTAME 4 G/PKT PACKET GT SCH (08:29)
[2022-11-22] MEDS: SEVELAMER CARBONATE 800 MG POWD.PACK GT SCH ×3 (08:29→17:09)
[2022-11-22] MEDS: HYDROCORTISONE SOD SUCCINATE 100 MG/2 ML VIAL IV SCH ×2 (08:29→17:09)
[2022-11-22 08:59] LABS: ABG BASE EXCESS -0.3 mmol/L; ABG OXYGEN SATURATION 95.1 % (92.0-98.5); ABG PCO2 49.7 mmHg (35.0-45.0); ABG PH 7.333 (7.350-7.450); ABG PO2 88.2 mmHg (75.0-100.0); AaDO2 284.9 mmHg; COHb 1.2 % (0.5-1.5); MetHb 0.2 % (0.0-1.5); O2Hb 93.8 % (94.0-97.0); PEEP,BG 0 cm H2O; SITE, ABG Right Radial; VT, ABG 475 mL
--- NOTE | 2022-11-22 09:00 | NUR ---
rn notes ABG DONE VIA RT, AND GET VENT CHANGE ORDER VIA Dr THOMAS, RT AWARE OF. KEEP HOB ELEVATED.
--- NOTE | 2022-11-22 09:08 | NUR ---
vent changes below per dr. freed: vt 450 ml fio2 50% Addendum: 11/22/22 at 0909 by SLY EWING RT Amended: Links added.
[2022-11-22] MEDS: CEFEPIME 2 GM in IV D5W 100 ML IV SCH (09:13)
--- NOTE | 2022-11-22 11:30 | NUR ---
rn notes get order hemodialysis cath insertion, and HD via Dr Mak. consent orders get signed from son at bedside.
[2022-11-22] MEDS ORDERED: EPOETIN ALFA (20,000 UNIT) 20,000 UNIT/ML VIAL SQ ONE (12:30)
[2022-11-22] MEDS: MAGNESIUM HYDROXIDE 30 ML UDC GT PRN (13:08)
--- NOTE | 2022-11-22 13:08 | NUR ---
rn notes administered Tylenol 650 mg via GT for generalized pain, and milk of magnesia for constipation. also administered due medication as scheduled. per radiologist unable to do US guided kidney biopsy today will happen tomorrow 11/23/22. bs-113 mg/dl. Patients son on bedside. Assist turn and reposition q 2 hr. started GTF at 30 ml/hr.
[2022-11-22] MEDS: NEPRO 1,000 ML BOTTLE GT PRN ×2 (13:40→13:41)
[2022-11-22] MEDS ORDERED: EPOETIN ALFA-EPBX 20,000 UNIT/ML VIAL SQ ONE (14:16)
[2022-11-22 14:37] LABS: MAGNESIUM 2.9 mg/dL (1.8-2.4); PHOSPHORUS 7.6 mg/dL (2.5-4.9)
--- NOTE | 2022-11-22 18:30 | NUR ---
RN NOTES BS-131 MG/DL COVERAGE GIVEN, DUE MEDICATION ADMINISTERED, PATIENT CT OF ABDOMEN, AND NEEDLE BIOPSY KIDNEY POSTPONED TOMORROW 11/23/22. PM CARE DONE, URINE OUTPUT WAS 100ML, PATIENT HAS GENERALIZED EDEMA , DISTENDED ABDOMEN. ASSIST TURN AND REPOSTION Q 2 HR. RUNNING NEPRO 30ML/HR VIA GT. ENDORSED ONCOMING NURSE LOU.
[2022-11-22] MEDS: INSULIN REGULAR, HUMAN 100 UNIT/ML 3 ML VIAL SQ PRN (19:07)
--- NOTE | 2022-11-22 19:42 | NUR ---
RN NOTE UNABLE TO OBTAIN TEMP FROM AXILLARY OR ORAL SOURCE. RECTAL TEMP CHECKED AND NOTED TO BE 91.6. SAMANTHA HUGGER APPLIED WITH TEMP SET TO MAX.
--- NOTE | 2022-11-22 20:47 | NUR ---
LAND LEASE INFORMATION CLERK OPENING NOTE PT RECEIVED IN BED, OBTUNDED, OPENS EYES. PT ON PORTEX #8, AC 16, TV 450, FIO2 50% WITH CURRENT O2SAT OF 100%; NO S/S OF RESP DISTRESS, NO SOB, NON-LABORED AND EQUAL BREATHING. PT ATTACHED TO BEDSIDE MONITOR, AFIB CONTROLLED WITH HR OF 66. KNOX INTACT AND PATENT, DRAINING LITTLE AMOUNT OF URINE THAT IS CLEAR AND YELLOW. ARELIS MIDLINE INTACT AND PATENT, FLUSHES EASILY WITH NO RESISTANCE; NS TKO INFUSING. GTD C/D/I WITH NEPRO AT 30 ML/HR; NOTED TO HAVE 110 ML RESIDUALS. BED IN LOWEST POSITION, CALL LIGHT WITHIN REACH, SIDE RAILS UP X3. WILL CONTINUE TO MONITOR THROUGHOUT THE NIGHT.
--- NOTE | 2022-11-22 21:02 | NUR ---
RN NOTE FRANCOISE HEDRICK AT BEDSIDE. HD CATH ESTABLISHED ON LEFT FEMORAL.
[2022-11-22] MEDS: TAMSULOSIN 0.4 MG CAP.SR.24H GT SCH (21:05)
[2022-11-22] MEDS: LATANOPROST EYE DROP 0.005% 2.5 ML BOTTLE EACHEYE SCH (21:05)
[2022-11-22] MEDS: INSULIN GLARGINE, 100 UNIT/ML CARTRIDGE SQ SCH (21:27)
--- NOTE | 2022-11-22 21:40 | NUR ---
ANNI NOTE PER SAADIA MCCOY REPORTS HD IN AM. Addendum: 11/23/22 at 0047 by PRINCESS GREG HUTTON SAADIA ANAYA
[2022-11-23] VITALS (30 sets, daily range): BP systolic 95–173; BP diastolic 45–90
[2022-11-23] MEDS: IPRATROPIUM NEB FS 0.5 MG/2.5 ML AMPUL.NEB IH SCH ×4 (01:35→19:46)
[2022-11-23] MEDS: ALBUTEROL FS 2.5 MG/3 ML VIAL.NEB IH SCH ×4 (01:35→19:46)
[2022-11-23] MEDS: IV NS 0.9% 250 ML IV PRN (02:23)
[2022-11-23 03:24] LABS: BASOPHILS % (AUTO) 0.2 % (0.0-2.0); HEMATOCRIT 26 % (39-51); HEMOGLOBIN 7.9 g/dL (13.5-17.5); LYMPHOCYTES # (AUTO) 0.1 K/uL (0.8-4.8); LYMPHOCYTES % (AUTO) 0.6 % (20.0-44.0); MEAN CORPUSCULAR HGB CONC 30 g/dl (31.0-36.0); MEAN CORPUSCULAR VOLUME 96 fL (80-96); MONOCYTES # (AUTO) 0.2 K/uL (0.1-1.30); MONOCYTES % (AUTO) 2.1 % (2.0-12.0); NEUTROPHILS # (AUTO) 10.1 K/uL (1.8-8.9); NEUTROPHILS % (AUTO) 97.1 % (43.0-81.0); PLATELET COUNT (AUTO) 147 K/uL (150-450); RED BLOOD CELL COUNT(AUTO) 2.75 MIL/uL (4.5-6.0); WHITE BLOOD COUNT (AUTO) 10.4 K/uL (4.3-11.0)
[2022-11-23 03:47] LABS: CALCIUM, SERUM 8.7 mg/dL (8.5-10.1); CARBON DIOXIDE 29 mmol/L (21-32); CHLORIDE 94 mmol/L (98-107); CREATININE 4.7 mg/dL (0.6-1.3); GLUCOSE 139 mg/dL (74-106); MAGNESIUM 3.1 mg/dL (1.8-2.4); PHOSPHORUS 7.9 mg/dL (2.5-4.9); POTASSIUM 4.6 mmol/L (3.5-5.1); SODIUM SERUM 130 mmol/L (136-145)
[2022-11-23 03:51] LABS: UREA NITROGEN, BLOOD 118 mg/dL (7-18)
[2022-11-23] MEDS: LEVOTHYROXINE SODIUM 125 MCG TABLET GT SCH (05:10)
[2022-11-23] MEDS: METOCLOPRAMIDE HCL 10 MG TABLET GT SCH ×3 (05:10→21:07)
--- NOTE | 2022-11-23 06:32 | NUR ---
DUMP TRUCK OPERATOR CLOSING NOTE PT REMAINS IN BED, OBTUNDED; NO CHANGES TO NEURO STATUS. CONTINUES ON SAME VENT SETTINGS, TOLERATING WELL WITH O2SAT RANGING FROM 93%-100%; WITH NO S/S OF RESP DISTRESS, NO SOB, NON-LABORED AND EQUAL BREATHING. ATTACHED TO BEDSIDE MONITOR, AFIB CONTROLLED WITH HR RANGING FROM 63-107. KNOX INTACT AND PATENT, DRAINING CLEAR AND YELLOW URINE. NEPRO TURNED OFF AT [address] NEEDLE BIOPSY OF KIDNEY SCHEDULED FOR TODAY. ARELIS MIDLINE INTACT AND PATENT, FLUSHES EASILY WITH NO RESISTANCE; NS TKO INFUSING. WOUND CLEANSED AND NEW DRESSING APPLIED. ALL DUE MEDS ADMINISTERED DURING THE NIGHT. BED IN LOWEST POSITION, CALL LIGHT WITHIN REACH, SIDE RAILS UP X3. WILL ENDORSE TO DAYSHIFT NURSE TO CONTINUE CARE.
[2022-11-23] MEDS: SIROLIMUS 1 MG GT SCH (07:25)
[2022-11-23] MEDS: FAMOTIDINE (20 MG) 20 MG TABLET GT SCH (07:26)
[2022-11-23] MEDS: BACLOFEN (10 MG) 10 MG TABLET GT SCH ×2 (07:26→17:00)
[2022-11-23] MEDS: ACIDOPHILUS/BULGARICUS 1 EACH TAB.CHEW GT SCH ×2 (07:26→17:00)
[2022-11-23] MEDS: FERROUS SULFATE (325 MG) 325 MG/TAB TABLET GT SCH ×3 (07:26→17:00)
[2022-11-23] MEDS: CALCIUM ACETATE 667 MG CAP/TAB GT SCH ×3 (07:27→17:00)
[2022-11-23] MEDS: CHOLESTYRAMINE/ASPARTAME 4 G/PKT PACKET GT SCH (07:27)
[2022-11-23] MEDS: SEVELAMER CARBONATE 800 MG POWD.PACK GT SCH ×3 (07:27→17:00)
[2022-11-23] MEDS: LINAGLIPTIN 5 MG TABLET PO SCH (07:28)
[2022-11-23] MEDS: LEVETIRACETAM (250 MG) 250 MG TABLET PO SCH ×2 (07:28→21:07)
[2022-11-23] MEDS: HYDROCORTISONE SOD SUCCINATE 100 MG/2 ML VIAL IV SCH ×2 (08:10→17:10)
[2022-11-23] MEDS: CEFEPIME 2 GM in IV D5W 100 ML IV SCH (08:10)
[2022-11-23 08:52] LABS: ABG BASE EXCESS 0.8 mmol/L; ABG OXYGEN SATURATION 81.4 % (92.0-98.5); ABG PCO2 75.2 mmHg (35.0-45.0); ABG PH 7.215 (7.350-7.450); ABG PO2 57.3 mmHg (75.0-100.0); AaDO2 214.6 mmHg; COHb 1.2 % (0.5-1.5); MetHb 0.3 % (0.0-1.5); O2Hb 80.2 % (94.0-97.0); PEEP,BG 0 cm H2O; SITE, ABG Right Femoral; VT, ABG 450 mL
--- NOTE | 2022-11-23 09:04 | NUR ---
VENT CHANGES BELOW PER DR. THOMAS: TIDAL VOLUME INCREASED FROM [address] THOMAS. FIO2 INCREASED FROM 50% TO 60% DUE TO 88% SATURATION Addendum: 11/23/22 at 0906 by SLY EWING RT Amended: Links added.
[2022-11-23] MEDS ORDERED: NALOXONE PREFILLED SYRINGE 2 MG/2 ML SYRINGE IV PRN (12:00)
[2022-11-23] MEDS ORDERED: MIDAZOLAM HCL 2 MG/2ML VIAL IV PRN (12:00)
[2022-11-23] MEDS ORDERED: FLUMAZENIL 0.5 MG VIAL IV PRN (12:00)
[2022-11-23] MEDS ORDERED: FENTANYL PF 250MCG/5ML AMPUL IV PRN (12:00)
[2022-11-23] MEDS: BLOOD SUGAR DIAGNOSTIC 1 EACH STRIP VI SCH ×3 (13:29→23:16)
[2022-11-23] MEDS ORDERED: SORBITOL SOLUTION 70% 30 ML SOLUTION PO ONE (13:30)
[2022-11-23] MEDS ORDERED: BISACODYL SUPP (10 MG) 10 MG/SUPP.RECT SUPP.RECT RC ONE (13:30)
[2022-11-23] MEDS ORDERED: LACTULOSE 10 G/15 ML UDC (PYXIS) GT ONE (13:30)
--- NOTE | 2022-11-23 18:15 | NUR ---
CLINICAL EDUCATION ASSISTANT CLOSING NOTE; 7A PT REMAINS IN BED, OBTUNDED; NO CHANGES TO NEURO STATUS. VENT SETTINGS; CHANGE TO TV 475 TOLERATING WELL WITH O2SAT RANGING FROM 93%-100%WITH NO S/S OF RESP DISTRESS, NO SOB, NON-LABORED. REMAINS IN AFIB CONTROLLED WITH HR RANGING FROM 63-107. KNOX INTACT AND PATENT, MINIMAL OUTPUIT NOTED NEPRO RESUMED. CT GUIDED BIOPSY DONE. NO BM NOTED X 2 DAYS. BOWEL REGIMEN TO TREAT CONSTIPATION GIVEN. INSTRUCTED TO CHANGE KNOX CATH PER ID. MAY NEED UROLOGY CONSULT FOR KNOX EXCHANGE SECONDARY TO PENILE SWELLING AND ABNORMALITY PENILE ANATOMY
[2022-11-23] MEDS: LATANOPROST EYE DROP 0.005% 2.5 ML BOTTLE EACHEYE SCH (21:07)
[2022-11-23] MEDS: TAMSULOSIN 0.4 MG CAP.SR.24H GT SCH (21:07)
--- NOTE | 2022-11-23 21:31 | NUR ---
CUTTER GAS OPENING NOTE PT RECEIVED IN BED, OBTUNDED, OPENS EYES. PT ON TRACH WITH PORTEX SIZE #8, AC 16, TV 475, FIO2 60% WITH CURRENT O2SAT OF 99%; NO S/S OF RESP DISTRESS, NO SOB, NON-LABORED AND EQUAL BREATHING; NOTED TO HAVE BLOODY SECRETIONS COMING FROM MOUTH D/T LOOSE TOOTH. PT ATTACHED TO BEDSIDE MONITOR, AFIB CONTROLLED TO AFLUTTER WITH HR OF 72. KNOX INTACT AND PATENT, DRAINING CLEAR AND YELLOW URINE. GTD C/D/I WITH NEPRO AT 30 ML/HR, NOTED TO HAVE RESIDUAL OF 325 ML. ARELIS MIDLINE INTACT AND PATENT, FLUSHES EASILY WITH NO RESISTANCE; NS TKO INFUSING. LEFT FEMORAL HD CATH DRESSING C/D/I. BED IN LOWEST POSITION, CALL LIGHT WITHIN REACH, SIDE RAILS UP X3. WILL CONTINUE TO MONITOR THROUGHOUT THE NIGHT.
[2022-11-23] MEDS: INSULIN GLARGINE, 100 UNIT/ML CARTRIDGE SQ SCH (22:00)
--- NOTE | 2022-11-23 23:17 | NUR ---
RN NOTE BG NOTED TO BE 68 MG/DL. LANTUS 30 UNITS SCHEDULED FOR 2200 HELD.
[2022-11-24] VITALS (28 sets, daily range): BP systolic 90–171; BP diastolic 37–103
--- NOTE | 2022-11-24 01:30 | NUR ---
RN NOTE PT NOTED TO HAVE BM THAT'S SOFT AND BROWNISH-BLACK IN COLOR. PT GIVEN BED BATH AND LINENS CHANGED AT THIS TIME.
[2022-11-24] MEDS: ALBUTEROL FS 2.5 MG/3 ML VIAL.NEB IH SCH ×4 (01:40→20:04)
[2022-11-24] MEDS: IPRATROPIUM NEB FS 0.5 MG/2.5 ML AMPUL.NEB IH SCH ×4 (01:40→20:04)
[2022-11-24 04:51] LABS: BASOPHILS % (AUTO) 0.1 % (0.0-2.0); HEMATOCRIT 26 % (39-51); HEMOGLOBIN 7.8 g/dL (13.5-17.5); LYMPHOCYTES # (AUTO) 0.1 K/uL (0.8-4.8); LYMPHOCYTES % (AUTO) 0.5 % (20.0-44.0); MEAN CORPUSCULAR HGB CONC 30 g/dl (31.0-36.0); MEAN CORPUSCULAR VOLUME 97 fL (80-96); MONOCYTES # (AUTO) 0.2 K/uL (0.1-1.30); MONOCYTES % (AUTO) 2.4 % (2.0-12.0); NEUTROPHILS # (AUTO) 9.5 K/uL (1.8-8.9); PLATELET COUNT (AUTO) 124 K/uL (150-450); WHITE BLOOD COUNT (AUTO) 9.8 K/uL (4.3-11.0)
[2022-11-24] MEDS: METOCLOPRAMIDE HCL 10 MG TABLET GT SCH ×3 (05:02→21:14)
[2022-11-24] MEDS: LEVOTHYROXINE SODIUM 125 MCG TABLET GT SCH (05:02)
[2022-11-24 05:10] LABS: CARBON DIOXIDE 29 mmol/L (21-32); CHLORIDE 98 mmol/L (98-107); CREATININE 3.6 mg/dL (0.6-1.3); GLUCOSE 102 mg/dL (74-106); MAGNESIUM 2.8 mg/dL (1.8-2.4); PHOSPHORUS 5.8 mg/dL (2.5-4.9); POTASSIUM 4.4 mmol/L (3.5-5.1); SODIUM SERUM 132 mmol/L (136-145)
[2022-11-24 05:22] LABS: CALCIUM, SERUM 8.8 mg/dL (8.5-10.1)
[2022-11-24 05:24] LABS: UREA NITROGEN, BLOOD 88 mg/dL (7-18)
[2022-11-24] MEDS: BLOOD SUGAR DIAGNOSTIC 1 EACH STRIP VI SCH ×3 (05:33→18:08)
--- NOTE | 2022-11-24 06:29 | NUR ---
SAP PI DEVELOPER CLOSING NOTE PT REMAINS IN BED, OBTUNDED, OPENS EYES ON OCCASION. CONTINUES TO BE ON SAME VENT SETTINGS, TOLERATING WELL WITH O2SAT RANGING FROM 98%-100% THROUGHOUT THE NIGHT WITH NO S/S OF RESP DISTRESS; NOTED TO HAVE BLOODY SECRETIONS COMING FROM MOUTH, PT SUCTIONED PROPERLY AND ORAL CARE PROVIDED. ATTACHED TO BEDSIDE MONITOR, AFIB CONTROLLED-AFLUTTER WITH HR RANGING FROM 72-100. KNOX INTACT AND PATENT, DRAINING MINIMAL URINE. WOUNDS CLEANSED AND NEW DRESSING APPLIED. GTF RUNNING AT 30 ML/HR. ARELIS MIDLINE INTACT AND PATENT, FLUSHES EASILY WITH NO RESISTANCE. ALL DUE MEDS ADMINISTERED DURING THE NIGHT. BED IN LOWEST POSITION, CALL LIGHT WITHIN REACH, SIDE RAILS UP X3. WILL ENDORSE TO DAYSHIFT NURSE TO CONTINUE CARE.
[2022-11-24] MEDS: SIROLIMUS 1 MG GT SCH (07:58)
[2022-11-24] MEDS: FAMOTIDINE (20 MG) 20 MG TABLET GT SCH (07:59)
[2022-11-24] MEDS: LEVETIRACETAM (250 MG) 250 MG TABLET PO SCH ×2 (07:59→21:14)
[2022-11-24] MEDS: BACLOFEN (10 MG) 10 MG TABLET GT SCH ×2 (07:59→17:11)
[2022-11-24] MEDS: SEVELAMER CARBONATE 800 MG POWD.PACK GT SCH ×3 (07:59→17:11)
[2022-11-24] MEDS: CALCIUM ACETATE 667 MG CAP/TAB GT SCH ×3 (08:00→17:11)
[2022-11-24] MEDS: FERROUS SULFATE (325 MG) 325 MG/TAB TABLET GT SCH ×3 (08:00→17:11)
[2022-11-24] MEDS: LINAGLIPTIN 5 MG TABLET PO SCH (08:00)
[2022-11-24] MEDS: CHOLESTYRAMINE/ASPARTAME 4 G/PKT PACKET GT SCH (08:00)
[2022-11-24] MEDS: ACIDOPHILUS/BULGARICUS 1 EACH TAB.CHEW GT SCH ×2 (08:00→17:11)
[2022-11-24] MEDS: HYDROCORTISONE SOD SUCCINATE 100 MG/2 ML VIAL IV SCH ×2 (08:00→17:10)
[2022-11-24] MEDS ORDERED: PROPOFOL 100 ML IV PRN (09:30)
[2022-11-24 10:56] LABS: ABG BASE EXCESS -0.5 mmol/L; ABG PCO2 58.3 mmHg (35.0-45.0); ABG PH 7.279 (7.350-7.450); ABG PO2 94.2 mmHg (75.0-100.0); AaDO2 269.5 mmHg; COHb 1.8 % (0.5-1.5); MetHb 0.2 % (0.0-1.5); O2Hb 94.1 % (94.0-97.0); SITE, ABG Right Radial
[2022-11-24] MEDS: TAMSULOSIN 0.4 MG CAP.SR.24H GT SCH (21:14)
[2022-11-24] MEDS: LATANOPROST EYE DROP 0.005% 2.5 ML BOTTLE EACHEYE SCH (21:14)
[2022-11-25] VITALS (26 sets, daily range): BP systolic 89–190; BP diastolic 43–93
[2022-11-25] MEDS: INSULIN GLARGINE, 100 UNIT/ML CARTRIDGE SQ SCH ×2 (00:10→21:27)
[2022-11-25] MEDS: BLOOD SUGAR DIAGNOSTIC 1 EACH STRIP VI SCH ×4 (00:11→17:55)
[2022-11-25] MEDS: hydrALAZINE HCL IV 20 MG VIAL IV PRN ×2 (01:15→21:12)
--- NOTE | 2022-11-25 01:17 | NUR ---
RN NOTE PT NOTED TO HAVE BP OF 175/81, HR 83. Addendum: 11/25/22 at 0636 by PRINCESS GREG HUTTON HYDRALAZINE 10 MG IV ADMINISTERED.
[2022-11-25] MEDS: IPRATROPIUM NEB FS 0.5 MG/2.5 ML AMPUL.NEB IH SCH ×4 (01:42→20:03)
[2022-11-25] MEDS: ALBUTEROL FS 2.5 MG/3 ML VIAL.NEB IH SCH ×4 (01:42→20:03)
--- NOTE | 2022-11-25 01:42 | NUR ---
titrate fio2 to 50%
[2022-11-25 04:15] LABS: EOSINOPHILS % (AUTO) 0.1 % (0.0-6.0); HEMATOCRIT 28 % (39-51); HEMOGLOBIN 8.2 g/dL (13.5-17.5); LYMPHOCYTES # (AUTO) 0.1 K/uL (0.8-4.8); LYMPHOCYTES % (AUTO) 0.8 % (20.0-44.0); MEAN CORPUSCULAR HGB CONC 30 g/dl (31.0-36.0); MEAN CORPUSCULAR VOLUME 98 fL (80-96); MONOCYTES # (AUTO) 0.3 K/uL (0.1-1.30); MONOCYTES % (AUTO) 2.6 % (2.0-12.0); NEUTROPHILS # (AUTO) 12.5 K/uL (1.8-8.9); NEUTROPHILS % (AUTO) 96.5 % (43.0-81.0); PLATELET COUNT (AUTO) 141 K/uL (150-450); RED BLOOD CELL COUNT(AUTO) 2.81 MIL/uL (4.5-6.0); WHITE BLOOD COUNT (AUTO) 12.9 K/uL (4.3-11.0)
[2022-11-25 04:35] LABS: CALCIUM, SERUM 9.3 mg/dL (8.5-10.1); CARBON DIOXIDE 28 mmol/L (21-32); CHLORIDE 96 mmol/L (98-107); CREATININE 4.2 mg/dL (0.6-1.3); GLUCOSE 153 mg/dL (74-106); MAGNESIUM 3.1 mg/dL (1.8-2.4); PHOSPHORUS 6.4 mg/dL (2.5-4.9); POTASSIUM 4.6 mmol/L (3.5-5.1); SODIUM SERUM 131 mmol/L (136-145)
[2022-11-25 04:43] LABS: UREA NITROGEN, BLOOD 88 mg/dL (7-18)
[2022-11-25] MEDS: METOCLOPRAMIDE HCL 10 MG TABLET GT SCH ×3 (05:13→21:10)
[2022-11-25] MEDS: LEVOTHYROXINE SODIUM 125 MCG TABLET GT SCH (05:13)
[2022-11-25] MEDS: INSULIN REGULAR, HUMAN 100 UNIT/ML 3 ML VIAL SQ PRN (05:28)
[2022-11-25] MEDS: IV NS 0.9% 250 ML IV PRN (05:34)
[2022-11-25] MEDS: NEPRO 1,000 ML BOTTLE GT PRN (05:34)
--- NOTE | 2022-11-25 06:36 | NUR ---
COILER OPERATOR CLOSING NOTE PT REMAINS IN BED WITH PORTEX SIZE #8 WITH PRESSURE CONTROL AT 45, RATE 26, PEEP 50%; TOLERATING WELL WITH O2SAT RANGING FROM 94%-100%; NO S/S OF RESP DISTRESS, NO SOB OR COUGH, NON-LABORED AND EQUAL BREATHING. ATTACHED TO BEDSIDE MONITOR, AFIB CONTROLLED-AFLUTTER WITH HR RANGING FROM 62-96. KNOX INTACT AND PATENT, DRAINING CLOUDY AND YELLOW URINE. WOUNDS CLEANSED AND NEW DRESSING APPLIED. GTD C/D/I WITH NEPRO RUNNING AT 30 ML/HR;NOTED TO HAVE 90 ML RESIDUAL; OVERALL TOLERATING GTF WELL. ARELIS MIDLINE INTACT AND PATENT WITH NS TKO INFUSING; LEFT FEMORAL HD CATH INTACT AND PATENT. ALL DUE MEDS ADMINISTERED DURING THE NIGHT. BED IN LOWEST POSITION, CALL LIGHT WITHIN REACH, SIDE RAILS UP X3. WILL ENDORSE TO DAYSHIFT NURSE TO CONTINUE CARE.
[2022-11-25] MEDS: LEVETIRACETAM (250 MG) 250 MG TABLET PO SCH ×2 (08:08→21:10)
[2022-11-25] MEDS: ACIDOPHILUS/BULGARICUS 1 EACH TAB.CHEW GT SCH ×2 (08:08→16:52)
[2022-11-25] MEDS: BACLOFEN (10 MG) 10 MG TABLET GT SCH ×2 (08:08→16:53)
[2022-11-25] MEDS: CHOLESTYRAMINE/ASPARTAME 4 G/PKT PACKET GT SCH (08:08)
[2022-11-25] MEDS: FAMOTIDINE (20 MG) 20 MG TABLET GT SCH (08:09)
[2022-11-25] MEDS: LINAGLIPTIN 5 MG TABLET PO SCH (08:09)
[2022-11-25] MEDS: HYDROCORTISONE SOD SUCCINATE 100 MG/2 ML VIAL IV SCH ×2 (08:10→16:52)
[2022-11-25] MEDS: SEVELAMER CARBONATE 800 MG POWD.PACK GT SCH ×3 (08:10→16:53)
[2022-11-25] MEDS: FERROUS SULFATE (325 MG) 325 MG/TAB TABLET GT SCH ×3 (08:12→16:53)
[2022-11-25] MEDS: CALCIUM ACETATE 667 MG CAP/TAB GT SCH ×4 (08:13→16:53)
--- NOTE | 2022-11-25 08:14 | NUR ---
0814 HELD PT'S PHOSLO DUE TO HIGH PHOSPHATE LEVELS
[2022-11-25 08:57] LABS: ABG BASE EXCESS 0.4 mmol/L; ABG OXYGEN SATURATION 94.3 % (92.0-98.5); ABG PCO2 54.3 mmHg (35.0-45.0); ABG PH 7.314 (7.350-7.450); ABG PO2 80.7 mmHg (75.0-100.0); AaDO2 214.7 mmHg; MetHb 0.4 % (0.0-1.5); SITE, ABG Right Radial
[2022-11-25] MEDS: SIROLIMUS 1 MG GT SCH (09:42)
[2022-11-25] MEDS: *INSULIN REGULAR(HUMULIN R)HUM 100 UNIT/ML VIAL SQ PRN (11:49)
[2022-11-25] MEDS: SCOPOLAMINE PATCH 1 MG/72HR TD SCH (12:34)
--- NOTE | 2022-11-25 19:15 | NUR ---
MECHANICAL FACILITIES TECHNICIAN NOTE RECEIVED PT FOR CONTINUITY OF CARE. PATIENT OBTUNDED IN NO S/SX OF ACUTE DISTRESS AT THIS TIME; CURRENTLY ON MECHANICAL VENT; SETTING PRESCRIBED, WITH 02 SAT >95% AT THIS TIME. IV ACCESS; R UA MIDLINE PATENT, INTACT AND FLUSHING WELL. ALSO HAS L FEMORAL HD CATH SECURED AND INTACT. WITH GTUBE FEEDING RUNNING PRESCRIBED. KNOX CATH SECURED AND INTACT DRAINING SMALL AMOUNT OF URINE OUTPUT. WILL ENSURE SAFETY MEASURES WITHIN THE SHIFT. PATIENT BED ALARM IS ON. HEAD OF BED ELEVATED. BED IS LOCKED, IN LOWEST POSITION AND SIDE RAILS UP. CALL LIGHT WITHIN REACH OF THE PATIENT. WILL CONTINUE TO MONITOR AND REASSESS FOR ANY CHANGES AND WILL CARRY OUT ANY ONGOING AND ACTIVE MD ORDER.
[2022-11-25] MEDS: TAMSULOSIN 0.4 MG CAP.SR.24H GT SCH (21:10)
[2022-11-25] MEDS: LATANOPROST EYE DROP 0.005% 2.5 ML BOTTLE EACHEYE SCH (21:10)
[2022-11-26] VITALS (26 sets, daily range): BP systolic 93–184; BP diastolic 46–97
[2022-11-26] MEDS: BLOOD SUGAR DIAGNOSTIC 1 EACH STRIP VI SCH ×5 (00:40→23:31)
[2022-11-26] MEDS: INSULIN REGULAR, HUMAN 100 UNIT/ML 3 ML VIAL SQ PRN ×3 (00:40→23:31)
[2022-11-26] MEDS: ALBUTEROL FS 2.5 MG/3 ML VIAL.NEB IH SCH ×4 (02:23→19:42)
[2022-11-26] MEDS: IPRATROPIUM NEB FS 0.5 MG/2.5 ML AMPUL.NEB IH SCH ×4 (02:23→19:42)
--- NOTE | 2022-11-26 04:00 | NUR ---
BEATING MACHINE OPERATOR NOTE PATIENT REMAINED TO BE IN NO SIGNS OF ACUTE RESPIRATORY DISTRESS , VITAL SIGNS STABLE AT THIS TIME. REGULAR TURNING AND REPOSITIONING DONE AND SUCTIONING RENDERED. AM PATIENT CARE DONE. WILL CONTINUE TO MONITOR AND REASSESS FOR ANY CHANGES THROUGHOUT THE SHIFT.
[2022-11-26 04:48] LABS: BASOPHILS % (AUTO) 0.1 % (0.0-2.0); HEMATOCRIT 25 % (39-51); HEMOGLOBIN 7.4 g/dL (13.5-17.5); LYMPHOCYTES # (AUTO) 0.1 K/uL (0.8-4.8); LYMPHOCYTES % (AUTO) 0.8 % (20.0-44.0); MEAN CORPUSCULAR HGB CONC 29 g/dl (31.0-36.0); MEAN CORPUSCULAR VOLUME 97 fL (80-96); MONOCYTES # (AUTO) 0.4 K/uL (0.1-1.30); MONOCYTES % (AUTO) 3.5 % (2.0-12.0); NEUTROPHILS # (AUTO) 11.4 K/uL (1.8-8.9); NEUTROPHILS % (AUTO) 95.6 % (43.0-81.0); PLATELET COUNT (AUTO) 112 K/uL (150-450); RED BLOOD CELL COUNT(AUTO) 2.59 MIL/uL (4.5-6.0); WHITE BLOOD COUNT (AUTO) 11.9 K/uL (4.3-11.0)
[2022-11-26] MEDS: LEVOTHYROXINE SODIUM 125 MCG TABLET GT SCH (05:09)
[2022-11-26] MEDS: METOCLOPRAMIDE HCL 10 MG TABLET GT SCH ×3 (05:09→21:13)
[2022-11-26 05:11] LABS: CALCIUM, SERUM 9.2 mg/dL (8.5-10.1); CARBON DIOXIDE 27 mmol/L (21-32); CHLORIDE 99 mmol/L (98-107); CREATININE 3.3 mg/dL (0.6-1.3); GLUCOSE 98 mg/dL (74-106); MAGNESIUM 2.7 mg/dL (1.8-2.4); PHOSPHORUS 3.4 mg/dL (2.5-4.9); SODIUM SERUM 134 mmol/L (136-145); UREA NITROGEN, BLOOD 63 mg/dL (7-18)
--- NOTE | 2022-11-26 07:13 | NUR ---
SALESPERSON SHOES CLOSING NOTE: PATIENT REMAINS IN ROOM IN NO SIGNS OF RESPIRATORY DISTRESS, PATIENT STILL ON MECH VENT; SETTINGS PRESCRIBED;TOLERATING WELL SATURATING @ >95% SP02. STILL WITH NOTED GENERALIZED EDEMA, BP HAS BEEN SENSITIVE, PRN BP MEDICATION GIVEN ONE TIME. SAFETY MEASURES IMPLEMENTED, BED IN LOWEST POSITION, LOCKED, SIDE RAILS UP, CALL LIGHT WITHIN REACH. ALL NEEDS AND ORDERS ADDRESSED DURING THE SHIFT. IV ACCESS MAINTAINED INTACT, SECURED AND FLUSHING WELL. ALL DUE MEDS GIVEN ORDERED & SCHEDULED ; PATIENT TOLERATED WELL. PATIENT KEPT CLEAN AND COMFORTABLE WITHIN THE SHIFT. PENDING RESULT OF THE FINE NEEDLE BIOPSY AND URO CONSULT. PATIENT ENDORSED TO INCOMING SHIFT RN WITH STABLE VITAL SIGN AND FOR CONTINUITY OF CARE.
--- NOTE | 2022-11-26 07:48 | NUR ---
SHEET METAL LAY OUT WORKER OPENING NOTE: PATIENT REMAINS IN ROOM IN NO SIGNS OF RESPIRATORY DISTRESS, PATIENT STILL ON MECH VENT; SETTINGS PRESCRIBED;TOLERATING WELL SATURATING @ >95% SP02. STILL WITH NOTED GENERALIZED EDEMA. ARELIS MIDLINE NOTED PATENT AND INTACT, FLUSHES WELL. LEFT FEMORAL HD CATH DRESSING C/D/I. SAFETY MEASURES IMPLEMENTED, BED IN LOWEST POSITION, LOCKED, SIDE RAILS UP, CALL LIGHT WITHIN REACH. PLAN OF CARE CONTINUE.
[2022-11-26] MEDS: FERROUS SULFATE (325 MG) 325 MG/TAB TABLET GT SCH ×3 (08:17→16:06)
[2022-11-26] MEDS: FAMOTIDINE (20 MG) 20 MG TABLET GT SCH (08:17)
[2022-11-26] MEDS: ACIDOPHILUS/BULGARICUS 1 EACH TAB.CHEW GT SCH ×2 (08:17→16:06)
[2022-11-26] MEDS: LEVETIRACETAM (250 MG) 250 MG TABLET PO SCH ×2 (08:17→21:13)
[2022-11-26] MEDS: HYDROCORTISONE SOD SUCCINATE 100 MG/2 ML VIAL IV SCH ×2 (08:18→16:06)
[2022-11-26] MEDS: CALCIUM ACETATE 667 MG CAP/TAB GT SCH ×3 (08:18→16:06)
[2022-11-26] MEDS: BACLOFEN (10 MG) 10 MG TABLET GT SCH ×2 (08:18→16:06)
[2022-11-26] MEDS: CHOLESTYRAMINE/ASPARTAME 4 G/PKT PACKET GT SCH (08:18)
[2022-11-26] MEDS: LINAGLIPTIN 5 MG TABLET PO SCH (08:18)
[2022-11-26] MEDS: SEVELAMER CARBONATE 800 MG POWD.PACK GT SCH ×3 (08:22→16:06)
[2022-11-26] MEDS: SIROLIMUS 1 MG GT SCH (08:40)
[2022-11-26 09:02] LABS: ABG BASE EXCESS 0.3 mmol/L; ABG PCO2 43.7 mmHg (35.0-45.0); ABG PH 7.384 (7.350-7.450); ABG PO2 80.2 mmHg (75.0-100.0); AaDO2 227.1 mmHg; COHb 1.6 % (0.5-1.5); MetHb 0.4 % (0.0-1.5); O2Hb 93.1 % (94.0-97.0); PEEP,BG 0 cm H2O; SITE, ABG Right Radial
[2022-11-26] MEDS: NEPRO 1,000 ML BOTTLE GT PRN (15:20)
--- NOTE | 2022-11-26 17:20 | NUR ---
TRANSFERRED PATIENT TO [facility] UNIT ROOM 119-1.
--- NOTE | 2022-11-26 18:59 | NUR ---
[facility] RN CLOSING NOTE: PATIENT SLEEPING,OBTUNDED, PATIENT STILL ON MECH VENT; SETTINGS PRESCRIBED;TOLERATING WELL SATURATING @ >95% SP02. STILL WITH NOTED GENERALIZED EDEMA. ARELIS MIDLINE NOTED PATENT AND INTACT, FLUSHES WELL, TKO,. LEFT FEMORAL HD CATH DRESSING C/D/I. ON GT FEEDING NEPHRO TOLERATING WELL, NO RESIDUAL NOTED. SAFETY MEASURES IMPLEMENTED, BED IN LOWEST POSITION, LOCKED, SIDE RAILS UP, CALL LIGHT WITHIN REACH. WILL ENDORSE TO NIGHT NURSE FOR LOU. Addendum: 11/26/22 at 1901 by JUSTIN VILLEGAS RN ON TELE MONITOR SR.
--- NOTE | 2022-11-26 19:20 | NUR ---
IT DISASTER RECOVERY MANAGER NOTE RECEIVED PT FOR CONTINUITY OF CARE. PATIENT OBTUNDED WITH NOTED GENERALIZED EDEMA IN NO S/SX OF ACUTE DISTRESS AT THIS TIME; CURRENTLY ON MECHANICAL VENT; SETTING PRESCRIBED, WITH 02 SAT >95% AT THIS TIME. IV ACCESS; R UA MIDLINE PATENT, INTACT AND FLUSHING WELL. ALSO HAS L FEMORAL HD CATH SECURED AND INTACT. WITH GTUBE FEEDING RUNNING PRESCRIBED. KNOX CATH SECURED AND INTACT NO OUTPUT NOTED AT THIS TIME.WILL ENSURE SAFETY MEASURES WITHIN THE SHIFT. PATIENT BED ALARM IS ON. HEAD OF BED ELEVATED. BED IS LOCKED, IN LOWEST POSITION AND SIDE RAILS UP. CALL LIGHT WITHIN REACH OF THE PATIENT. WILL CONTINUE TO MONITOR AND REASSESS FOR ANY CHANGES AND WILL CARRY OUT ANY ONGOING AND ACTIVE MD ORDER.
[2022-11-26] MEDS: LATANOPROST EYE DROP 0.005% 2.5 ML BOTTLE EACHEYE SCH (21:13)
[2022-11-26] MEDS: TAMSULOSIN 0.4 MG CAP.SR.24H GT SCH (21:13)
[2022-11-26] MEDS: INSULIN GLARGINE, 100 UNIT/ML CARTRIDGE SQ SCH (21:53)
[2022-11-27] VITALS (7 sets, daily range): BP systolic 128–182; BP diastolic 61–81
[2022-11-27] MEDS: ALBUTEROL FS 2.5 MG/3 ML VIAL.NEB IH SCH ×4 (01:23→19:48)
[2022-11-27] MEDS: IPRATROPIUM NEB FS 0.5 MG/2.5 ML AMPUL.NEB IH SCH ×4 (01:23→19:48)
[2022-11-27] MEDS: hydrALAZINE HCL IV 20 MG VIAL IV PRN (03:49)
--- NOTE | 2022-11-27 04:00 | NUR ---
RN NOTE PATIENT REMAINED TO BE IN NO SIGNS OF ACUTE RESPIRATORY DISTRESS, VITAL SIGNS STABLE AT THIS TIME. REGULAR TURNING AND REPOSITIONING DONE AND SUCTIONING RENDERED. AM PATIENT CARE DONE. WILL CONTINUE TO MONITOR AND REASSESS FOR ANY CHANGES THROUGHOUT THE SHIFT.
[2022-11-27] MEDS: METOCLOPRAMIDE HCL 10 MG TABLET GT SCH ×3 (05:06→21:33)
[2022-11-27] MEDS: LEVOTHYROXINE SODIUM 125 MCG TABLET GT SCH (05:06)
[2022-11-27] MEDS: BLOOD SUGAR DIAGNOSTIC 1 EACH STRIP VI SCH ×3 (05:15→17:24)
[2022-11-27] MEDS: INSULIN REGULAR, HUMAN 100 UNIT/ML 3 ML VIAL SQ PRN (05:16)
--- NOTE | 2022-11-27 06:45 | NUR ---
RN CLOSING NOTE: PATIENT REMAINS IN ROOM IN NO SIGNS OF RESPIRATORY DISTRESS, PATIENT STILL ON MECH VENT; SETTINGS PRESCRIBED;TOLERATING WELL SATURATING @ >95% SP02. STILL WITH NOTED GENERALIZED EDEMA. PRN BP MEDICATION GIVEN ONE TIME. SAFETY MEASURES IMPLEMENTED, BED IN LOWEST POSITION, LOCKED, SIDE RAILS UP, CALL LIGHT WITHIN REACH. ALL NEEDS AND ORDERS ADDRESSED DURING THE SHIFT. IV ACCESS MAINTAINED INTACT, SECURED AND FLUSHING WELL. ALL DUE MEDS GIVEN ORDERED & SCHEDULED ; PATIENT TOLERATED WELL. PATIENT KEPT CLEAN AND COMFORTABLE WITHIN THE SHIFT. PENDING RESULT OF THE FINE NEEDLE BIOPSY AND URO CONSULT. PATIENT ENDORSED TO INCOMING SHIFT RN WITH STABLE VITAL SIGN AND FOR CONTINUITY OF CARE.
[2022-11-27] MEDS: SEVELAMER CARBONATE 800 MG POWD.PACK GT SCH ×3 (08:26→16:44)
[2022-11-27] MEDS: CHOLESTYRAMINE/ASPARTAME 4 G/PKT PACKET GT SCH (08:26)
[2022-11-27] MEDS: FERROUS SULFATE (325 MG) 325 MG/TAB TABLET GT SCH ×3 (08:27→16:44)
[2022-11-27] MEDS: LEVETIRACETAM (250 MG) 250 MG TABLET PO SCH ×2 (08:27→21:33)
[2022-11-27] MEDS: BACLOFEN (10 MG) 10 MG TABLET GT SCH ×2 (08:27→16:44)
[2022-11-27] MEDS: CALCIUM ACETATE 667 MG CAP/TAB GT SCH ×3 (08:27→16:44)
[2022-11-27] MEDS: LINAGLIPTIN 5 MG TABLET PO SCH (08:27)
[2022-11-27] MEDS: ACIDOPHILUS/BULGARICUS 1 EACH TAB.CHEW GT SCH ×2 (08:27→16:44)
[2022-11-27] MEDS: FAMOTIDINE (20 MG) 20 MG TABLET GT SCH (08:27)
[2022-11-27] MEDS: HYDROCORTISONE SOD SUCCINATE 100 MG/2 ML VIAL IV SCH ×2 (08:27→16:44)
[2022-11-27] MEDS: SIROLIMUS 1 MG GT SCH (11:29)
--- NOTE | 2022-11-27 13:00 | NUR ---
RN NOTE PATIENT DONE WITH HD THE OUTPUT IS 2000 CC
[2022-11-27] MEDS: DEXTROSE 50%-WATER 50 ML DISP.SYRIN IV PRN (17:36)
--- NOTE | 2022-11-27 17:36 | NUR ---
RN NOTE PATIENT'S BLOOD SUGAR 52, GOING TO ADMINISTER 50% DEXTROSE AND WILL ASSESS THE BLOOD SUGAR AFTER IV PUSH 50% DEXTROSE
--- NOTE | 2022-11-27 18:06 | NUR ---
RN NOTE PATIENT BLOOD SUGAR AFTER 50% DEXTROSE 126
--- NOTE | 2022-11-27 19:00 | NUR ---
RN CLOSING NOTE: PATIENT IN BED NO SIGNS OF RESPIRATORY DISTRESS, PATIENT STILL ON MECH VENT; SETTINGS PRESCRIBED;TOLERATING WELL SATURATING 98% SP02. STILL WITH NOTED GENERALIZED EDEMA HD DONE TODAY AT 1330 OUTPUT 2000 CC. PRN BP MEDICATION GIVEN ONE TIME. SAFETY MEASURES IMPLEMENTED, BED IN LOWEST POSITION, LOCKED, SIDE RAILS UP, CALL LIGHT WITHIN REACH. ALL NEEDS AND ORDERS ADDRESSED DURING THE SHIFT. IV ACCESS RIGHT UPPER ARM MIDLINE MAINTAINED INTACT, SECURED AND FLUSHING WELL. ALL DUE MEDS GIVEN ORDERED & SCHEDULED ; PATIENT TOLERATED WELL. PATIENT KEPT CLEAN AND COMFORTABLE WITHIN THE SHIFT. PATIENT ENDORSED TO THE PM SHIFT RN WITH STABLE VITAL SIGN AND FOR LOU.
--- NOTE | 2022-11-27 19:15 | NUR ---
RN NOTE RECEIVED PT FOR CONTINUITY OF CARE. PATIENT OBTUNDED WITH NOTED GENERALIZED EDEMA IN NO S/SX OF ACUTE DISTRESS AT THIS TIME; CURRENTLY ON MECHANICAL VENT; SETTING PRESCRIBED, WITH 02 SAT >95% AT THIS TIME. IV ACCESS: R UA MIDLINE PATENT, INTACT AND FLUSHING WELL. ALSO HAS L FEMORAL HD CATH SECURED AND INTACT. WITH GTUBE FEEDING RUNNING PRESCRIBED. KNOX CATH SECURED AND INTACT NO OUTPUT NOTED AT THIS TIME. WILL ENSURE SAFETY MEASURES WITHIN THE SHIFT. PATIENT BED ALARM IS ON. HEAD OF BED ELEVATED. BED IS LOCKED, IN LOWEST POSITION AND SIDE RAILS UP. CALL LIGHT WITHIN REACH OF THE PATIENT. WILL CONTINUE TO MONITOR AND REASSESS FOR ANY CHANGES AND WILL CARRY OUT ANY ONGOING AND ACTIVE MD ORDER.
[2022-11-27] MEDS: TAMSULOSIN 0.4 MG CAP.SR.24H GT SCH (21:33)
[2022-11-27] MEDS: LATANOPROST EYE DROP 0.005% 2.5 ML BOTTLE EACHEYE SCH (21:33)
[2022-11-27] MEDS: INSULIN GLARGINE, 100 UNIT/ML CARTRIDGE SQ SCH (21:47)
--- NOTE | 2022-11-27 21:49 | NUR ---
RN NOTE ACCU CHECK DONE; 79MG/DL. HELD LANTUS DOSE AT THIS TIME. CARPET WINDER MADE AWARE.
[2022-11-28] VITALS: BP 156/75
[2022-11-28] MEDS: BLOOD SUGAR DIAGNOSTIC 1 EACH STRIP VI SCH ×5 (00:45→23:49)
[2022-11-28] MEDS: INSULIN REGULAR, HUMAN 100 UNIT/ML 3 ML VIAL SQ PRN ×2 (00:45→05:12)
[2022-11-28] MEDS: IPRATROPIUM NEB FS 0.5 MG/2.5 ML AMPUL.NEB IH SCH ×4 (01:40→21:09)
[2022-11-28] MEDS: ALBUTEROL FS 2.5 MG/3 ML VIAL.NEB IH SCH ×4 (01:40→21:09)
--- NOTE | 2022-11-28 03:50 | NUR ---
RN NOTE NOTED PT HAVING CLOTTED BLOODY ORAL SECRETIONS 2X EPISODE SINCE 0000; SUCTIONING RENDERED. NOTIFIED MAHENDRA ROSALES (ESTHELA,DIRECTOR OF REIMBURSEMENT) COLLAR STAY FUSER TENDER WELL AWARE. Addendum: 11/28/22 at 0354 by GEORGE PATEL RN FEEDING HELD AT THIS TIME
[2022-11-28 04:00] VITALS: BP 125/64
[2022-11-28] MEDS: METOCLOPRAMIDE HCL 10 MG TABLET GT SCH ×3 (05:04→22:11)
[2022-11-28] MEDS: LEVOTHYROXINE SODIUM 125 MCG TABLET GT SCH (05:04)
--- NOTE | 2022-11-28 06:42 | NUR ---
RN CLOSING NOTE: PATIENT REMAINS IN ROOM IN NO SIGNS OF RESPIRATORY DISTRESS, PATIENT STILL ON MECH VENT; SETTINGS PRESCRIBED;TOLERATING WELL SATURATING @ >95% SP02. STILL WITH NOTED GENERALIZED EDEMA. WITH NOTED OF ORAL SECRETIONS; BLOODY/CLOTTED IN CONSISTENCY SMALL TO MODERATE IN AMOUNT; ONCFARHAN ROSALES AWARE (ESTHELA,AMUSEMENT PARK ENTERTAINER) SUCTIONING DONE AND FEEDING HELD. SAFETY MEASURES IMPLEMENTED, BED IN LOWEST POSITION, LOCKED, SIDE RAILS UP, CALL LIGHT WITHIN REACH. ALL NEEDS AND ORDERS ADDRESSED DURING THE SHIFT. IV ACCESS MAINTAINED INTACT, SECURED AND FLUSHING WELL. ALL DUE MEDS GIVEN ORDERED & SCHEDULED ; PATIENT TOLERATED WELL. PATIENT KEPT CLEAN AND COMFORTABLE WITHIN THE SHIFT. PENDING RESULT OF THE FINE NEEDLE BIOPSY AND URO CONSULT. PATIENT ENDORSED TO INCOMING SHIFT RN WITH STABLE VITAL SIGN AND FOR CONTINUITY OF CARE.
--- NOTE | 2022-11-28 07:05 | NUR ---
[facility] RN OPENING NOTE RECEIVED PATIENT OBTUNDED WITH NOTED GENERALIZED EDEMA IN NO S/SX OF ACUTE DISTRESS AT THIS TIME; CURRENTLY ON MECHANICAL VENT; SETTING PRESCRIBED, WITH 02 SAT >95% AT THIS TIME. IV ACCESS: R UA MIDLINE PATENT, INTACT AND FLUSHING WELL. ALSO HAS L FEMORAL HD CATH SECURED AND INTACT. WITH GTUBE FEEDING ID HELD BY STOCK RECEIVER. KNOX CATH SECURED AND INTACT NO OUTPUT NOTED AT THIS TIME. WILL ENSURE SAFETY MEASURES WITHIN THE SHIFT. PATIENT BED ALARM IS ON. HEAD OF BED ELEVATED. BED IS LOCKED, IN LOWEST POSITION AND SIDE RAILS UP. CALL LIGHT WITHIN REACH OF THE PATIENT. WILL CONTINUE TO MONITOR.
[2022-11-28 08:00] VITALS: BP 138/70
[2022-11-28] MEDS: SEVELAMER CARBONATE 800 MG POWD.PACK GT SCH ×3 (09:14→17:03)
[2022-11-28] MEDS: SIROLIMUS 1 MG GT SCH (09:14)
[2022-11-28] MEDS: HYDROCORTISONE SOD SUCCINATE 100 MG/2 ML VIAL IV SCH ×2 (09:14→17:03)
[2022-11-28] MEDS: FAMOTIDINE (20 MG) 20 MG TABLET GT SCH (09:15)
[2022-11-28] MEDS: BACLOFEN (10 MG) 10 MG TABLET GT SCH ×2 (09:15→17:03)
[2022-11-28] MEDS: ACIDOPHILUS/BULGARICUS 1 EACH TAB.CHEW GT SCH ×2 (09:15→17:02)
[2022-11-28] MEDS: CALCIUM ACETATE 667 MG CAP/TAB GT SCH ×3 (09:15→17:03)
[2022-11-28] MEDS: FERROUS SULFATE (325 MG) 325 MG/TAB TABLET GT SCH ×3 (09:15→17:03)
[2022-11-28] MEDS: LEVETIRACETAM (250 MG) 250 MG TABLET PO SCH ×2 (09:16→22:11)
[2022-11-28] MEDS: CHOLESTYRAMINE/ASPARTAME 4 G/PKT PACKET GT SCH (09:22)
[2022-11-28] MEDS: LINAGLIPTIN 5 MG TABLET PO SCH (09:27)
[2022-11-28 11:49] LABS: BASOPHILS % (AUTO) 0.2 % (0.0-2.0); EOSINOPHILS % (AUTO) 0.2 % (0.0-6.0); HEMATOCRIT 26 % (39-51); HEMOGLOBIN 7.4 g/dL (13.5-17.5); LYMPHOCYTES # (AUTO) 0.1 K/uL (0.8-4.8); LYMPHOCYTES % (AUTO) 0.9 % (20.0-44.0); MEAN CORPUSCULAR HGB CONC 29 g/dl (31.0-36.0); MEAN CORPUSCULAR VOLUME 101 fL (80-96); MONOCYTES # (AUTO) 0.5 K/uL (0.1-1.30); MONOCYTES % (AUTO) 3.1 % (2.0-12.0); NEUTROPHILS # (AUTO) 14.2 K/uL (1.8-8.9); NEUTROPHILS % (AUTO) 95.6 % (43.0-81.0); PLATELET COUNT (AUTO) 93 K/uL (150-450); RED BLOOD CELL COUNT(AUTO) 2.55 MIL/uL (4.5-6.0); WHITE BLOOD COUNT (AUTO) 14.8 K/uL (4.3-11.0)
[2022-11-28 11:51] LABS: CALCIUM, SERUM 9.8 mg/dL (8.5-10.1); CARBON DIOXIDE 26 mmol/L (21-32); CHLORIDE 98 mmol/L (98-107); CREATININE 3.3 mg/dL (0.6-1.3); GLUCOSE 70 mg/dL (74-106); POTASSIUM 4.2 mmol/L (3.5-5.1); SODIUM SERUM 130 mmol/L (136-145); UREA NITROGEN, BLOOD 59 mg/dL (7-18)
[2022-11-28 12:00] VITALS: BP 137/60
[2022-11-28] MEDS: SCOPOLAMINE PATCH 1 MG/72HR TD SCH (12:08)
[2022-11-28 12:21] LABS: ABG BASE EXCESS -2.9 mmol/L; ABG PCO2 45.4 mmHg (35.0-45.0); ABG PH 7.323 (7.350-7.450); ABG PO2 92.1 mmHg (75.0-100.0); AaDO2 213.3 mmHg; COHb 2.2 % (0.5-1.5); MetHb 0.3 % (0.0-1.5); O2Hb 93.6 % (94.0-97.0); SITE, ABG Right Radial
--- NOTE | 2022-11-28 12:25 | NUR ---
RT NOTE POST ABG RESULTS SHOWN TO SOON RN. MONITORING PATIENT CLOSELY.
--- NOTE | 2022-11-28 14:52 | NUR ---
RN NOTES: BED BATH AND CHANGING ALL LINEN DONE.NOTED RIGHT FEMORAL HD CATH SOLD, DRESSING CHANGED
[2022-11-28 16:00] VITALS: BP 121/57
--- NOTE | 2022-11-28 19:20 | NUR ---
[facility] RN CLOSING NOTE: PATIENT REMAINS IN ROOM IN NO SIGNS OF RESPIRATORY DISTRESS, PATIENT STILL ON MECH VENT; SETTINGS PRESCRIBED;TOLERATING WELL SATURATING @ >95% SP02. STILL WITH NOTED GENERALIZED EDEMA. WITH NOTED OF ORAL SECRETIONS; BLOODY/CLOTTED IN CONSISTENCY SMALL TO MODERATE IN AMOUNT; GENTLE SUCTIONING DONE . SAFETY MEASURES IMPLEMENTED, BED IN LOWEST POSITION, LOCKED, SIDE RAILS UP, CALL LIGHT WITHIN REACH. ALL NEEDS AND ORDERS ADDRESSED DURING THE SHIFT. IV ACCESS MAINTAINED INTACT, SECURED AND FLUSHING WELL. GTF RUNNING OF NEPRO AT 30 ML/HR,NO RESIDUAL NOTED. ALL DUE MEDS GIVEN ORDERED & SCHEDULED ; PATIENT TOLERATED WELL. PATIENT KEPT CLEAN AND COMFORTABLE WITHIN THE SHIFT. PENDING RESULT OF THE FINE NEEDLE BIOPSY AND URO CONSULT. PATIENT ENDORSED TO INCOMING SHIFT RN WITH STABLE VITAL SIGN AND FOR CONTINUITY OF CARE.
--- NOTE | 2022-11-28 19:30 | NUR ---
[facility] RN OPENING NOTE RECEIVED PT FOR CONTINUITY OF CARE. PATIENT OBTUNDED WITH NOTED GENERALIZED EDEMA IN NO S/SX OF ACUTE DISTRESS AT THIS TIME; CURRENTLY ON MECHANICAL VENT; SETTING PRESCRIBED, WITH 02 SAT >95% AT THIS TIME. IV ACCESS: R UA MIDLINE PATENT, INTACT AND FLUSHING WELL. ALSO HAS L FEMORAL HD CATH SECURED AND INTACT. WITH GTUBE FEEDING RUNNING PRESCRIBED. KNOX CATH SECURED AND INTACT. WILL ENSURE SAFETY MEASURES WITHIN THE SHIFT. PATIENT BED ALARM IS ON. HEAD OF BED ELEVATED. BED IS LOCKED, IN LOWEST POSITION AND SIDE RAILS UP. CALL LIGHT WITHIN REACH OF THE PATIENT. WILL CONTINUE TO MONITOR AND REASSESS FOR ANY CHANGES AND WILL CARRY OUT ANY ONGOING AND ACTIVE MD ORDER.
[2022-11-28 20:00] VITALS: BP 119/62
[2022-11-28] MEDS: LATANOPROST EYE DROP 0.005% 2.5 ML BOTTLE EACHEYE SCH (22:11)
[2022-11-28] MEDS: TAMSULOSIN 0.4 MG CAP.SR.24H GT SCH (22:11)
[2022-11-28] MEDS: INSULIN GLARGINE, 100 UNIT/ML CARTRIDGE SQ SCH (22:31)
[2022-11-28] MEDS: *INSULIN REGULAR(HUMULIN R)HUM 100 UNIT/ML VIAL SQ PRN (23:49)
[2022-11-29] VITALS: BP 154/65
[2022-11-29] MEDS: IPRATROPIUM NEB FS 0.5 MG/2.5 ML AMPUL.NEB IH SCH ×4 (01:37→20:03)
[2022-11-29] MEDS: ALBUTEROL FS 2.5 MG/3 ML VIAL.NEB IH SCH ×4 (01:37→20:03)
[2022-11-29 04:00] VITALS: BP 118/68
--- NOTE | 2022-11-29 05:00 | NUR ---
RN NOTE CUTTER HEAD SHARPENER MADE AWARE PT HAD MUSHY CONSISTENCY STOOL X2 THROUGHOUT THE NIGHT, ASKED IF OKAY TO ORDER CDIFF TESTING, CDIFF FORM FILLED UP, STOOL COLLECTED AND PLACED ON FRIDGE. CN MADE AWARE, PER CN HOLD THE SAMPLE AND WAIT FOR MD TO ORDER CDIFF TESTING, WILL ENDORSE TO AM SHIFT.
[2022-11-29] MEDS: LEVOTHYROXINE SODIUM 125 MCG TABLET GT SCH (05:18)
[2022-11-29] MEDS: METOCLOPRAMIDE HCL 10 MG TABLET GT SCH ×3 (05:18→21:12)
[2022-11-29] MEDS: BLOOD SUGAR DIAGNOSTIC 1 EACH STRIP VI SCH ×4 (05:18→23:02)
[2022-11-29] MEDS: INSULIN REGULAR, HUMAN 100 UNIT/ML 3 ML VIAL SQ PRN (06:15)
[2022-11-29] MEDS: IV NS 0.9% 250 ML IV PRN (06:15)
--- NOTE | 2022-11-29 06:59 | NUR ---
ZELDA RN CLOSING NOTE: PATIENT REMAINS IN ROOM IN NO SIGNS OF RESPIRATORY DISTRESS, PATIENT STILL ON MECH VENT; SETTINGS PRESCRIBED;TOLERATING WELL SATURATING @ >95% SP02. STILL WITH NOTED GENERALIZED EDEMA. WITH NOTED OF ORAL SECRETIONS; BLOODY/CLOTTED IN CONSISTENCY SMALL TO MODERATE IN AMOUNT; GENTLE SUCTIONING DONE. SAFETY MEASURES IMPLEMENTED, BED IN LOWEST POSITION, LOCKED, SIDE RAILS UP, CALL LIGHT WITHIN REACH. ALL NEEDS AND ORDERS ADDRESSED DURING THE SHIFT. IV ACCESS MAINTAINED INTACT, SECURED AND FLUSHING WELL. GTF RUNNING OF NEPRO AT 30 ML/HR,NO RESIDUAL NOTED. ALL DUE MEDS GIVEN ORDERED & SCHEDULED ; PATIENT TOLERATED WELL. PATIENT KEPT CLEAN AND COMFORTABLE WITHIN THE SHIFT. WILL ENDORSE TO AM SHIFT NURSE FOR CONTINUITY OF CARE.
[2022-11-29 08:00] VITALS: BP 116/69
[2022-11-29 08:04] LABS: CALCIUM, SERUM 10.1 mg/dL (8.5-10.1); CARBON DIOXIDE 25 mmol/L (21-32); CHLORIDE 98 mmol/L (98-107); CREATININE 3.8 mg/dL (0.6-1.3); GLUCOSE 115 mg/dL (74-106); MAGNESIUM 2.7 mg/dL (1.8-2.4); PHOSPHORUS 3.3 mg/dL (2.5-4.9); SODIUM SERUM 132 mmol/L (136-145); UREA NITROGEN, BLOOD 70 mg/dL (7-18)
[2022-11-29 08:26] LABS: HEMATOCRIT 24 % (39-51); LYMPHOCYTES # (AUTO) 0.1 K/uL (0.8-4.8); LYMPHOCYTES % (AUTO) 0.9 % (20.0-44.0); MEAN CORPUSCULAR HGB CONC 29 g/dl (31.0-36.0); MEAN CORPUSCULAR VOLUME 99 fL (80-96); MONOCYTES # (AUTO) 0.5 K/uL (0.1-1.30); NEUTROPHILS # (AUTO) 12.9 K/uL (1.8-8.9); NEUTROPHILS % (AUTO) 95.1 % (43.0-81.0); PLATELET COUNT (AUTO) 92 K/uL (150-450); RED BLOOD CELL COUNT(AUTO) 2.43 MIL/uL (4.5-6.0); WHITE BLOOD COUNT (AUTO) 13.6 K/uL (4.3-11.0)
[2022-11-29 08:52] LABS: BAND % (MANUAL) 6 % (0.0-5.0); LYMPHOCYTES % (MANUAL) 2 % (16-48); MONOCYTES % (MANUAL) 2 % (0-11.0); MYELOCYTES % 1 % (0-0); NEUTROPHILS % (MANUAL) 89 (42-76)
[2022-11-29] MEDS: HYDROCORTISONE SOD SUCCINATE 100 MG/2 ML VIAL IV SCH ×2 (09:25→16:13)
[2022-11-29] MEDS: CALCIUM ACETATE 667 MG CAP/TAB GT SCH ×3 (09:26→16:13)
[2022-11-29] MEDS: FAMOTIDINE (20 MG) 20 MG TABLET GT SCH (09:26)
[2022-11-29] MEDS: CHOLESTYRAMINE/ASPARTAME 4 G/PKT PACKET GT SCH (09:26)
[2022-11-29] MEDS: LINAGLIPTIN 5 MG TABLET PO SCH (09:26)
[2022-11-29] MEDS: ACIDOPHILUS/BULGARICUS 1 EACH TAB.CHEW GT SCH ×2 (09:26→16:28)
[2022-11-29] MEDS: LEVETIRACETAM (250 MG) 250 MG TABLET PO SCH ×2 (09:26→21:12)
[2022-11-29] MEDS: SEVELAMER CARBONATE 800 MG POWD.PACK GT SCH ×3 (09:26→16:20)
[2022-11-29] MEDS: FERROUS SULFATE (325 MG) 325 MG/TAB TABLET GT SCH ×3 (09:26→16:13)
[2022-11-29] MEDS: BACLOFEN (10 MG) 10 MG TABLET GT SCH ×2 (09:27→16:20)
[2022-11-29] MEDS: SIROLIMUS 1 MG GT SCH (09:27)
--- NOTE | 2022-11-29 11:03 | NUR ---
RN notes: relayed hemoglobin 7.0 to JOSE FRANCISCO FAUSTIN NP WITH NO NEW ORDER, NO BLOOD TRANSFUSION NEEDED AT THIS TIME. STOOL FOR C-DIFF SAMPLE SENT TO THE LAB, PT NOTED WITH WATERY SMELLY STOOL
[2022-11-29 12:00] VITALS: BP 117/65
[2022-11-29 16:00] VITALS: BP 113/55
--- NOTE | 2022-11-29 17:07 | NUR ---
RN notes: notified nitin rodriges NP gt residual at 1200 was above 200 ml and feeding was held, at 1300 residual 150 ml continue to hold the feeding at 1600 residual 50 ml bright brown color with order to recheck residual every 6 hours . also saw an order for hemodialysis today left message to Tanmay paez RN
--- NOTE | 2022-11-29 19:40 | NUR ---
ZELDA RN OPENING NOTE RECEIVED PT FOR CONTINUITY OF CARE. PATIENT OBTUNDED WITH NOTED GENERALIZED EDEMA IN NO S/SX OF ACUTE DISTRESS AT THIS TIME; CURRENTLY ON MECHANICAL VENT; SETTING PRESCRIBED, WITH 02 SAT >95% AT THIS TIME. IV ACCESS: R UA MIDLINE PATENT, INTACT AND FLUSHING WELL. ALSO HAS L FEMORAL HD CATH SECURED AND INTACT. WITH GTUBE FEEDING RUNNING PRESCRIBED. KNOX CATH SECURED AND INTACT WITH LOW UOP, WILL ENSURE SAFETY MEASURES WITHIN THE SHIFT. PATIENT BED ALARM IS ON. HEAD OF BED ELEVATED. BED IS LOCKED, IN LOWEST POSITION AND SIDE RAILS UP. CALL LIGHT WITHIN REACH OF THE PATIENT. WILL CONTINUE TO MONITOR AND REASSESS FOR ANY CHANGES AND WILL CARRY OUT ANY ONGOING AND ACTIVE MD ORDER.
[2022-11-29 20:00] VITALS: BP 131/62
[2022-11-29] MEDS: TAMSULOSIN 0.4 MG CAP.SR.24H GT SCH (21:12)
[2022-11-29] MEDS: LATANOPROST EYE DROP 0.005% 2.5 ML BOTTLE EACHEYE SCH (21:12)
--- NOTE | 2022-11-29 22:30 | NUR ---
RN NOTE PT NOTED WITH GT RESIDUAL AT 200ML, DOT COMPLIANCE SPECIALIST MD MADE AWARE, OK TO HOLD FEEDING AT THIS TIME, SCHEDULED REGLAN GIVEN, BS CHECKED AT 136 MG/DL, INSULIN LANTUS GIVEN ORDERED, WILL CONT TO MONITOR PT.
[2022-11-29] MEDS: INSULIN GLARGINE, 100 UNIT/ML CARTRIDGE SQ SCH (23:01)
[2022-11-29] MEDS: *INSULIN REGULAR(HUMULIN R)HUM 100 UNIT/ML VIAL SQ PRN (23:02)
[2022-11-30] VITALS: BP 124/51
[2022-11-30] MEDS ORDERED: ALBUMIN 25% 100 ML IV ONE (00:13)
--- NOTE | 2022-11-30 00:17 | NUR ---
RN NOTE PT ONGOING DIALYSIS AT BEDSIDE WITH ANNI ANAYA, BP DROP TO 87/49 HR AT 62, ALBUMIN 25% ORDERED PER NADINE ROSALES FOR HD SUPPORT DURING DIALYSIS, WILL CONT TO MONITOR.
[2022-11-30] MEDS ORDERED: ALBUMIN 25% 25 GM in PREMIX 1 EA IV PRN (00:30)
[2022-11-30] MEDS: IPRATROPIUM NEB FS 0.5 MG/2.5 ML AMPUL.NEB IH SCH ×4 (02:00→20:10)
[2022-11-30] MEDS: ALBUTEROL FS 2.5 MG/3 ML VIAL.NEB IH SCH ×4 (02:00→20:10)
--- NOTE | 2022-11-30 02:20 | NUR ---
RN NOTE DIALYSIS DONE AT BEDSIDE WITH HÉCTOR HUTTON, NO OUTPUT REMOVED D/T LOW BP, PT WAS GIVEN ALBUMIN 25% DURING DIALYSIS. PT TOLERATED WELL. WILL CONT TO MONITOR.
[2022-11-30 04:00] VITALS: BP 124/51
[2022-11-30] MEDS: BLOOD SUGAR DIAGNOSTIC 1 EACH STRIP VI SCH ×3 (05:04→18:24)
[2022-11-30] MEDS: LEVOTHYROXINE SODIUM 125 MCG TABLET GT SCH (05:04)
[2022-11-30] MEDS: METOCLOPRAMIDE HCL 10 MG TABLET GT SCH ×3 (05:04→21:54)
[2022-11-30] MEDS: INSULIN REGULAR, HUMAN 100 UNIT/ML 3 ML VIAL SQ PRN ×2 (05:47→18:24)
[2022-11-30 06:17] LABS: BASOPHILS % (AUTO) 0.1 % (0.0-2.0); EOSINOPHILS % (AUTO) 0.1 % (0.0-6.0); HEMATOCRIT 24 % (39-51); HEMOGLOBIN 7.1 g/dL (13.5-17.5); LYMPHOCYTES # (AUTO) 0.1 K/uL (0.8-4.8); LYMPHOCYTES % (AUTO) 0.6 % (20.0-44.0); MEAN CORPUSCULAR HGB CONC 30 g/dl (31.0-36.0); MEAN CORPUSCULAR VOLUME 99 fL (80-96); MONOCYTES # (AUTO) 0.5 K/uL (0.1-1.30); NEUTROPHILS # (AUTO) 15.6 K/uL (1.8-8.9); NEUTROPHILS % (AUTO) 96.2 % (43.0-81.0); PLATELET COUNT (AUTO) 84 K/uL (150-450); RED BLOOD CELL COUNT(AUTO) 2.42 MIL/uL (4.5-6.0); WHITE BLOOD COUNT (AUTO) 16.2 K/uL (4.3-11.0)
[2022-11-30 06:34] LABS: CALCIUM, SERUM 10.5 mg/dL (8.5-10.1); CARBON DIOXIDE 25 mmol/L (21-32); CHLORIDE 100 mmol/L (98-107); GLUCOSE 78 mg/dL (74-106); MAGNESIUM 2.5 mg/dL (1.8-2.4); PHOSPHORUS 2.8 mg/dL (2.5-4.9); POTASSIUM 3.6 mmol/L (3.5-5.1); SODIUM SERUM 134 mmol/L (136-145); UREA NITROGEN, BLOOD 49 mg/dL (7-18)
--- NOTE | 2022-11-30 06:47 | NUR ---
ZELDA RN CLOSING NOTE: PATIENT REMAINS IN BED IN NO SIGNS OF RESPIRATORY DISTRESS, PATIENT STILL ON MECH VENT; SETTINGS PRESCRIBED;TOLERATING WELL SATURATING @ >95% SP02. STILL WITH NOTED GENERALIZED EDEMA. WITH NOTED OF ORAL SECRETIONS; BLOODY/CLOTTED IN CONSISTENCY SMALL TO MODERATE IN AMOUNT; GENTLE SUCTIONING DONE. SAFETY MEASURES IMPLEMENTED, BED IN LOWEST POSITION, LOCKED, SIDE RAILS UP, CALL LIGHT WITHIN REACH. ALL NEEDS AND ORDERS ADDRESSED DURING THE SHIFT. IV ACCESS MAINTAINED INTACT, SECURED AND FLUSHING WELL. GTF RUNNING OF NEPRO AT 40 ML/HR, ALL DUE MEDS GIVEN ORDERED & SCHEDULED ; PATIENT TOLERATED WELL. PATIENT KEPT CLEAN AND COMFORTABLE WITHIN THE SHIFT. WILL ENDORSE TO AM SHIFT NURSE FOR CONTINUITY OF CARE.
--- NOTE | 2022-11-30 07:29 | NUR ---
RN OPENING NOTE RECEIVED PT FOR CONTINUITY OF CARE. PATIENT OBTUNDED WITH NOTED GENERALIZED EDEMA IN NO S/SX OF ACUTE DISTRESS AT THIS TIME; CURRENTLY ON MECHANICAL VENT; SETTING PRESCRIBED IV ACCESS: R UA MIDLINE PATENT, INTACT AND FLUSHING WELL. ALSO HAS L FEMORAL HD CATH SECURED AND INTACT. WITH GTUBE FEEDING RUNNING PRESCRIBED. KNOX CATH SECURED AND INTACT WITH LOW UOP, WILL ENSURE SAFETY MEASURES WITHIN THE SHIFT. PATIENT BED ALARM IS ON. HEAD OF BED ELEVATED. BED IS LOCKED, IN LOWEST POSITION AND SIDE RAILS UP. CALL LIGHT WITHIN REACH OF THE PATIENT.
[2022-11-30 08:00] VITALS: BP 116/50
[2022-11-30] MEDS: FAMOTIDINE (20 MG) 20 MG TABLET GT SCH (08:41)
[2022-11-30] MEDS: CALCIUM ACETATE 667 MG CAP/TAB GT SCH ×3 (08:41→16:23)
[2022-11-30] MEDS: BACLOFEN (10 MG) 10 MG TABLET GT SCH ×2 (08:41→16:23)
[2022-11-30] MEDS: LINAGLIPTIN 5 MG TABLET PO SCH (08:41)
[2022-11-30] MEDS: SEVELAMER CARBONATE 800 MG POWD.PACK GT SCH ×3 (08:41→16:23)
[2022-11-30] MEDS: LEVETIRACETAM (250 MG) 250 MG TABLET PO SCH ×2 (08:41→21:54)
[2022-11-30] MEDS: FERROUS SULFATE (325 MG) 325 MG/TAB TABLET GT SCH ×3 (08:41→16:23)
[2022-11-30] MEDS: CHOLESTYRAMINE/ASPARTAME 4 G/PKT PACKET GT SCH (08:41)
[2022-11-30] MEDS: ACIDOPHILUS/BULGARICUS 1 EACH TAB.CHEW GT SCH ×2 (08:41→16:23)
[2022-11-30] MEDS: SIROLIMUS 1 MG GT SCH (08:42)
[2022-11-30] MEDS: HYDROCORTISONE SOD SUCCINATE 100 MG/2 ML VIAL IV SCH ×2 (08:42→16:23)
[2022-11-30 10:40] LABS: BAND % (MANUAL) 5 % (0.0-5.0); BASOPHILS % (MANUAL) 0 % (0.0-2.0); EOSINOPHILS % (MANUAL) 0 % (0-4); LYMPHOCYTES % (MANUAL) 2 % (16-48); MONOCYTES % (MANUAL) 2 % (0-11.0); NEUTROPHILS % (MANUAL) 91 (42-76)
[2022-11-30] MEDS: DEXTROSE 50%-WATER 50 ML DISP.SYRIN IV PRN (11:58)
[2022-11-30 12:00] VITALS: BP 123/58
[2022-11-30] MEDS ORDERED: NEPRO 1,000 ML BOTTLE GT PRN (12:00)
[2022-11-30] MEDS ORDERED: VANCOMYCIN 1 GM in IV D5W 250 ML IV ONE (13:00)
--- NOTE | 2022-11-30 14:06 | NUR ---
clarified with dr. shameka [place], ok to place,dr. mcclain notified,awaits consent.
--- NOTE | 2022-11-30 14:24 | NUR ---
RN NOTE FIRST ATTEMPT TO CONTACT PATIENTS SON SEAN WHITE REGARDING PERMCATH PLACEMENT CONSENT. NO ANSWER LEFT MESSAGE TO CALL HOSPITAL. PATIENT IS SCHEDULED FOR AT [address] STALEY
[2022-11-30 16:00] VITALS: BP 103/53
--- NOTE | 2022-11-30 16:51 | NUR ---
followup call for perma cath consent placed again,awaits response.
--- NOTE | 2022-11-30 19:00 | NUR ---
RN CLOSING NOTE: PATIENT REMAINS IN BED IN NO SIGNS OF RESPIRATORY DISTRESS, PATIENT STILL ON MECH VENT; SETTINGS PRESCRIBED;TOLERATING WELL SATURATING @ >95% SP02. STILL WITH NOTED GENERALIZED EDEMA. WITH NOTED OF ORAL SECRETIONS; BLOODY/CLOTTED IN CONSISTENCY SMALL TO MODERATE IN AMOUNT; GENTLE SUCTIONING DONE. SAFETY MEASURES IMPLEMENTED, BED IN LOWEST POSITION, LOCKED, SIDE RAILS UP, CALL LIGHT WITHIN REACH. ALL NEEDS AND ORDERS ADDRESSED DURING THE SHIFT. IV ACCESS MAINTAINED INTACT, SECURED AND FLUSHING WELL. GTF RUNNING OF NEPRO AT 40 ML/HR, ALL DUE MEDS GIVEN ORDERED & SCHEDULED ; PATIENT TOLERATED WELL. PATIENT KEPT CLEAN AND COMFORTABLE WITHIN THE SHIFT. WILL ENDORSE TO PM SHIFT NURSE FOR CONTINUITY OF CARE.
--- NOTE | 2022-11-30 19:06 | NUR ---
dr. cope notified pt. has shunt left arm but hard already no thrill and bruit per [facility] hd nurse,per dr. cope continue with perma cath and ask dr. mcclain tomorrow to evaluate the shunt.
--- NOTE | 2022-11-30 19:07 | NUR ---
message left to son,will followup.
--- NOTE | 2022-11-30 19:23 | NUR ---
family left,pt. restraint place back since pt. trying to pull lines,will continue to monitor.
--- NOTE | 2022-11-30 19:30 | NUR ---
RN NOTES RECEIVED REP[ORT FROM MORNING RN. PATIENT IN BED OBTUNDED. ON TRACH CONNECTED TO MV WITH PRESCRIBED SETTINGS TOLERATING WELL NO SOB NO DISTRESS NOTED AT THIS TIME. WITYH IV ACCESS AT ARELIS MIDLINE PATENT FLUSHES WELL NO REDNESS, NO INFILTRATION NOTED AT THIS TIME. WITH L FEMORAL HD CATH INTACT. WITH KNOX CATHETER CONNECTED TO URINE BAG DRAINING SMALL AMOUNT OF URINE. WITH GT PATENT CONNECTED TO CONTINUOS GT FEEDING TOLERATING WELL NO GASTRIC RESIDUAL. ON FLEXISEAL INTACT. ALL SAFETY MEASURES IN PLACE. HOB ELEVATED AT ALL TIMES. WILL CLOSELY MONITOR THE PATIENT
--- NOTE | 2022-11-30 19:36 | NUR ---
addendum pt. not on restraint.documentation on restraint wrong entry.
[2022-11-30 20:00] VITALS: BP 151/87
[2022-11-30] MEDS: TAMSULOSIN 0.4 MG CAP.SR.24H GT SCH (21:54)
[2022-11-30] MEDS: INSULIN GLARGINE, 100 UNIT/ML CARTRIDGE SQ SCH (22:00)
[2022-11-30] MEDS: LATANOPROST EYE DROP 0.005% 2.5 ML BOTTLE EACHEYE SCH (22:02)
--- NOTE | 2022-11-30 22:15 | NUR ---
RN NOTES LANTUS 30 UNITS HELD BLOOD SUGAR 86. PATIENT IS NPO POST MIDNIGHT FOR POSSIBLE PERMA CATH INSERTION
[2022-12-01] VITALS: BP 137/78
[2022-12-01] MEDS: BLOOD SUGAR DIAGNOSTIC 1 EACH STRIP VI SCH ×3 (00:48→12:24)
[2022-12-01] MEDS: INSULIN REGULAR, HUMAN 100 UNIT/ML 3 ML VIAL SQ PRN ×3 (00:56→12:25)
[2022-12-01] MEDS: IPRATROPIUM NEB FS 0.5 MG/2.5 ML AMPUL.NEB IH SCH ×3 (01:43→12:42)
[2022-12-01] MEDS: ALBUTEROL FS 2.5 MG/3 ML VIAL.NEB IH SCH ×3 (01:43→12:42)
[2022-12-01 04:00] VITALS: BP 131/77
[2022-12-01] MEDS: METOCLOPRAMIDE HCL 10 MG TABLET GT SCH ×2 (05:29→12:24)
[2022-12-01] MEDS: LEVOTHYROXINE SODIUM 125 MCG TABLET GT SCH (05:29)
[2022-12-01] MEDS ORDERED: VANCOMYCIN 500 MG in IV D5W 100 ML IV PRN (06:00)
--- NOTE | 2022-12-01 07:26 | NUR ---
RN NOTES PATIENT REMAINS ON VENT WITH PRESCRIBED SETTINGS. IV ACCESS ON ARELIS MIDLINE PATENT FLUSHES WELL, L FEMORAL HD CATH INTACT, FLEXI SEAL PATENT. GT PATENT. PATIENT ON NPO FOR PERMA CATH INSERTION. ALL SAFETY MEASURES IN PLACE HOB ELEVATED. CALLED SON MARCOS FOR CONSENT FOR BLOOD TRANSFUSION. WILL ENDORSED TO MORNING SHIFT.
--- NOTE | 2022-12-01 07:30 | NUR ---
RN OPENING NOTE RECEIVED PT FOR CONTINUITY OF CARE. PATIENT OBTUNDED WITH NOTED GENERALIZED EDEMA IN NO S/SX OF ACUTE DISTRESS AT THIS TIME; CURRENTLY ON MECHANICAL VENT; SETTING PRESCRIBED IV ACCESS: R UA MIDLINE PATENT, INTACT AND FLUSHING WELL. ALSO HAS L FEMORAL HD CATH SECURED AND INTACT. WITH GTUBE FEEDING NOT RUNNING DUE TO PATIENT BEING NPO FOR PERMCATH PROCEDURE TODAY WITH DOCTOR LUÍS AT 1300. KNOX CATH SECURED AND INTACT, WILL ENSURE SAFETY MEASURES WITHIN THE SHIFT. PATIENT BED ALARM IS ON. HEAD OF BED ELEVATED. BED IS LOCKED, IN LOWEST POSITION AND SIDE RAILS UP. CALL LIGHT WITHIN REACH OF THE PATIENT.
[2022-12-01 08:00] VITALS: BP 126/69
[2022-12-01 08:24] LABS: ABG BASE EXCESS -1.5 mmol/L; ABG OXYGEN SATURATION 94.5 % (92.0-98.5); ABG PH 7.377 (7.350-7.450); ABG PO2 79.7 mmHg (75.0-100.0); AaDO2 158.4 mmHg; COHb 1.4 % (0.5-1.5); MetHb 0.2 % (0.0-1.5); PEEP,BG 0 cm H2O; SITE, ABG Right Radial; VENT MODE, BG PCV40 RR26 40% PEEP+0
--- NOTE | 2022-12-01 08:29 | NUR ---
RT NOTE RR CHANGED FROM 26 [address] THOMAS. Addendum: 12/01/22 at 0933 by AGUILAR BOURNE RT Amended: Links added.
[2022-12-01] MEDS: SIROLIMUS 1 MG GT SCH (08:47)
[2022-12-01] MEDS: LEVETIRACETAM (250 MG) 250 MG TABLET PO SCH (08:47)
[2022-12-01] MEDS: CHOLESTYRAMINE/ASPARTAME 4 G/PKT PACKET GT SCH (08:47)
[2022-12-01] MEDS: BACLOFEN (10 MG) 10 MG TABLET GT SCH (08:48)
[2022-12-01] MEDS: FERROUS SULFATE (325 MG) 325 MG/TAB TABLET GT SCH ×2 (08:48→12:24)
[2022-12-01] MEDS: CALCIUM ACETATE 667 MG CAP/TAB GT SCH (08:48)
[2022-12-01] MEDS: ACIDOPHILUS/BULGARICUS 1 EACH TAB.CHEW GT SCH (08:48)
[2022-12-01] MEDS: SEVELAMER CARBONATE 800 MG POWD.PACK GT SCH (08:48)
[2022-12-01] MEDS: LINAGLIPTIN 5 MG TABLET PO SCH (08:48)
[2022-12-01] MEDS: HYDROCORTISONE SOD SUCCINATE 100 MG/2 ML VIAL IV SCH (08:48)
[2022-12-01] MEDS: FAMOTIDINE (20 MG) 20 MG TABLET GT SCH (08:48)
[2022-12-01 09:44] LABS: CALCIUM, SERUM 10.6 mg/dL (8.5-10.1); CARBON DIOXIDE 23 mmol/L (21-32); CHLORIDE 97 mmol/L (98-107); CREATININE 3.5 mg/dL (0.6-1.3); GLUCOSE 84 mg/dL (74-106); POTASSIUM 4.1 mmol/L (3.5-5.1); SODIUM SERUM 131 mmol/L (136-145); UREA NITROGEN, BLOOD 60 mg/dL (7-18)
[2022-12-01] MEDS ORDERED: HYDROCORTISONE SOD SUCCINATE 100 MG/2 ML VIAL IV SCH (11:30)
--- NOTE | 2022-12-01 11:38 | NUR ---
RN NOTE 1130 IV STEROID NOT GIVEN DUE TO DOSE ALREADY ADMINISTERED 0900. NEXT FOR WILL BE GIVEN RX.
[2022-12-01 12:00] VITALS: BP 126/69
[2022-12-01] MEDS ORDERED: IOHEXOL 240MG/ML 50 ML IV ONE (12:18)
[2022-12-01] MEDS ORDERED: LIDOCAINE HCL/MPF 1% 30 ML VIAL IJ ONE (12:18)
[2022-12-01] MEDS ORDERED: HEPARIN SODIUM, PORCINE 1,000 UNIT/ML VIAL ONE (12:19)
[2022-12-01] MEDS: SCOPOLAMINE PATCH 1 MG/72HR TD SCH (12:26)
[2022-12-01] MEDS ORDERED: SEVELAMER CARBONATE 800 MG POWD.PACK GT SCH (13:00)
[2022-12-01] MEDS ORDERED: DEXAMETHASONE SOD PHOSPHATE 10 MG/ML VIAL ONE (13:37)
--- NOTE | 2022-12-01 13:50 | NUR ---
RN NOTE ' PATIENT TAKEN TO SURGERY FOR PERMCATH PLACEMENT, RT AT BEDSIDE PATIENT TAKEN IN STABLE CONDITION.
[2022-12-01] MEDS ORDERED: EPINEPHRINE (1:1000) 10 MG in IV NS 0.9% 240 ML IV PRN (15:30)
[2022-12-01 16:06] LABS: BASOPHILS % (AUTO) 0.1 % (0.0-2.0); EOSINOPHILS % (AUTO) 0.1 % (0.0-6.0); HEMATOCRIT 26 % (39-51); LYMPHOCYTES # (AUTO) 1.7 K/uL (0.8-4.8); LYMPHOCYTES % (AUTO) 9.8 % (20.0-44.0); MEAN CORPUSCULAR HGB CONC 27 g/dl (31.0-36.0); MEAN CORPUSCULAR VOLUME 107 fL (80-96); MONOCYTES # (AUTO) 0.3 K/uL (0.1-1.30); MONOCYTES % (AUTO) 1.6 % (2.0-12.0); NEUTROPHILS % (AUTO) 88.4 % (43.0-81.0); PLATELET COUNT (AUTO) 63 K/uL (150-450); RED BLOOD CELL COUNT(AUTO) 2.44 MIL/uL (4.5-6.0)
[2022-12-01 16:20] LABS: CALCIUM, SERUM 10.7 mg/dL (8.5-10.1); CARBON DIOXIDE 21 mmol/L (21-32); CHLORIDE 100 mmol/L (98-107); CREATININE 3.5 mg/dL (0.6-1.3); GLUCOSE 208 mg/dL (74-106); POTASSIUM 5.6 mmol/L (3.5-5.1); SODIUM SERUM 132 mmol/L (136-145); UREA NITROGEN, BLOOD 60 mg/dL (7-18)
--- NOTE | 2022-12-01 16:22 | NUR ---
RT NOTE MULTIPLE ATTEMPTS TO RESUSCITATE THE PATIENT BUT UNSUCCESSFUL. ER DOCTOR PRONOUNCED PT AT 1622.
--- NOTE | 2022-12-01 16:22 | NUR ---
PATIENT PRONOUNCED BY ER PHYSICIAN.
[2022-12-01 16:51] LABS: BAND % (MANUAL) 7 % (0.0-5.0); LYMPHOCYTES % (MANUAL) 9 % (16-48); METAMYELOCYTES % 1 % (0-0); MONOCYTES % (MANUAL) 2 % (0-11.0); NEUTROPHILS % (MANUAL) 81 (42-76)
--- NOTE | 2022-12-01 16:59 | NUR ---
CONTACTED [facility]. . PATIENT NOT A CANDIDATE FOR [employer] DONATION.
[2022-12-01] MEDS ORDERED: CALCIUM CHLORIDE 1,000 MG/10 ML DISP.SYRIN IV ONE (17:04)
[2022-12-01] MEDS ORDERED: SODIUM BICARBONATE SYR 50 MEQ/50 ML DISP.SYRIN IV ONE (17:04)
[2022-12-01] MEDS ORDERED: EPINEPHRINE (1:10,000) SYRINGE 1 MG/10 ML DISP.SYRIN IVP ONE ×2 (17:04→17:07)
[2022-12-01] MEDS ORDERED: DEXTROSE 50%-WATER 50 ML DISP.SYRIN IV ONE (17:07)
--- NOTE | 2022-12-01 19:31 | NUR ---
ATTEMPTING TO REACH [facility] TO REPORT OF PATIENT. AT THIS TIME, STILL ON HOLD.
--- NOTE | 2022-12-01 19:58 | NUR ---
REACHED Josue GALE. DUE TO PATIENT PASSING WITHIN 24 HOURS OF SURGERY, [facility] IS UNABLE TO RELEASE THE BODY AT THIS TIME. INFORMED THAT DR. STALEY, THE PHYSICIAN WHO PERFORMED THE SURGERY WILL HAVE TO FOLLOW [facility] BETWEEN THE HOURS OF 0800 AND 1500.
== END 2022-12-01 16:25 | DRG 698 ==
LOC: ER 18:10 → TELE1 20:27 → TELE-TD 21:00 → ICU 11-15 06:49 → TELE1 11-16 17:38 → ICU 11-20 00:10 → TELE-TD 11-26 17:38 → TELE1 11-30 10:50 → ICU 12-01 15:23
PROVIDERS: ADMIT Internal Medicine; ATTEND Internal Medicine
PROC: 5A1955Z Respiratory Ventilation, Greater than 96 Consecutive Hours (ICD-10-PCS; principal; 2022-11-14)
PROC: 06HM33Z Insertion of Infusion Device into Right Femoral Vein, Percutaneous Approach (ICD-10-PCS; 2022-11-22)
PROC: 5A1D70Z Performance of Urinary Filtration, Intermittent, Less than 6 Hours Per Day (ICD-10-PCS; 2022-11-22)
PROC: B54BZZA Ultrasonography of Right Lower Extremity Veins, Guidance (ICD-10-PCS; 2022-11-22)
PROC: 0TB03ZX Excision of Right Kidney, Percutaneous Approach, Diagnostic (ICD-10-PCS; 2022-11-23)
PROC: B513YZZ Fluoroscopy of Right Jugular Veins using Other Contrast (ICD-10-PCS; 2022-12-01)
PROC: 03HY32Z Insertion of Monitoring Device into Upper Artery, Percutaneous Approach (ICD-10-PCS; 2022-12-01)
PROC: 5A2204Z Restoration of Cardiac Rhythm, Single (ICD-10-PCS; 2022-12-01)
PROC: 5A2204Z Restoration of Cardiac Rhythm, Single (ICD-10-PCS; 2022-12-01)
DX: T86.12 Kidney transplant failure (principal); G92.8 Other toxic encephalopathy; N18.6 End stage renal disease; R53.2 Functional quadriplegia; N17.9 Acute kidney failure, unspecified; I13.2 Hypertensive heart and chronic kidney disease with heart failure and with stage 5 chronic kidney disease, or end stage renal disease; E44.0 Moderate protein-calorie malnutrition; D68.59 Other primary thrombophilia; Z99.11 Dependence on respirator [ventilator] status; E87.1 Hypo-osmolality and hyponatremia; G93.1 Anoxic brain damage, not elsewhere classified; I48.20 Chronic atrial fibrillation, unspecified; I31.39 Other pericardial effusion (noninflammatory); D84.9 Immunodeficiency, unspecified; R18.8 Other ascites; I31.4 Cardiac tamponade; J96.10 Chronic respiratory failure, unspecified whether with hypoxia or hypercapnia; I50.32 Chronic diastolic (congestive) heart failure; K56.600 Partial intestinal obstruction, unspecified as to cause; R57.9 Shock, unspecified; Y92.89 Other specified places as the place of occurrence of the external cause; D69.6 Thrombocytopenia, unspecified; E87.5 Hyperkalemia; Z93.0 Tracheostomy status; Z93.1 Gastrostomy status; R13.10 Dysphagia, unspecified; Z86.73 Personal history of transient ischemic attack (TIA), and cerebral infarction without residual deficits; Z53.9 Procedure and treatment not carried out, unspecified reason; Z87.440 Personal history of urinary (tract) infections; M81.0 Age-related osteoporosis without current pathological fracture; K80.20 Calculus of gallbladder without cholecystitis without obstruction; N40.0 Benign prostatic hyperplasia without lower urinary tract symptoms; J44.9 Chronic obstructive pulmonary disease, unspecified; G40.909 Epilepsy, unspecified, not intractable, without status epilepticus; E11.22 Type 2 diabetes mellitus with diabetic chronic kidney disease; E11.43 Type 2 diabetes mellitus with diabetic autonomic (poly)neuropathy; E11.65 Type 2 diabetes mellitus with hyperglycemia; Z79.899 Other long term (current) drug therapy; Z79.51 Long term (current) use of inhaled steroids; Z79.84 Long term (current) use of oral hypoglycemic drugs; Z79.4 Long term (current) use of insulin; Z79.01 Long term (current) use of anticoagulants; E78.5 Hyperlipidemia, unspecified; Z99.2 Dependence on renal dialysis; K31.84 Gastroparesis; D63.8 Anemia in other chronic diseases classified elsewhere; E03.9 Hypothyroidism, unspecified; E83.39 Other disorders of phosphorus metabolism; I70.0 Atherosclerosis of aorta; J84.10 Pulmonary fibrosis, unspecified; Z79.623 Long term (current) use of mammalian target of rapamycin (mTOR) inhibitor; T36.95XA Adverse effect of unspecified systemic antibiotic, initial encounter; Y92.9 Unspecified place or not applicable; D32.9 Benign neoplasm of meninges, unspecified; Y92.129 Unspecified place in nursing home as the place of occurrence of the external cause; Y83.0 Surgical operation with transplant of whole organ as the cause of abnormal reaction of the patient, or of later complication, without mention of misadventure at the time of the procedure; R19.7 Diarrhea, unspecified; Z87.19 Personal history of other diseases of the digestive system
CPT/HCPCS: 31720; 36415; 36600; 71045-TC; 71250-TC; 74018; 76770-TC; 77012-TC; 80048-TC; 80053-TC; 80076-TC; 80162-TC; 80202-TC; 81001; 82550-TC; 82803-TC; 82962-TC; 83516; 83735-TC; 83880; 84100-TC; 85025-TC; 85610-TC; 85730-TC; 86704; 86705; 86706; 86803; 87040-TC; 87081-TC; 87086-TC; 87340; 88333-TC; 90935-TC; 93307-TC; 94003-TC; 94760-TC; 94762-TC; 94799-TC; 99082-TC; A4216; A4623; A6403; A7526; C1769; C9803; G0378; J0171; J0360; J0461; J0690; J0692; J0885; J1100; J1644; J1720; J1815; J2405; J2704; J3370; J3490; J7030; J7040; J7042; J7050; J7060; J8597; P9047; Q9966